=== PATIENT | male | born 1965 | race Caucasian/White ===

== ENCOUNTER 2020-04-10 13:05 | Outpatient (REF) | payer MEDICARE, SELFPAY | END 2020-04-10 13:06 | disposition home or self-care (01) | LOC: HO.LAB 13:05 | PROVIDERS: Visit Provider Internal Medicine | DX: Z20.828 Contact with and (suspected) exposure to other viral communicable diseases (principal) | CPT/HCPCS: C9803; U0003 ==

== ENCOUNTER 2020-04-20 15:35 | Outpatient (REF) | payer MEDICARE, SELFPAY | END 2020-04-20 15:36 | disposition home or self-care (01) | LOC: HO.LAB 15:35 | PROVIDERS: Visit Provider Internal Medicine | DX: Z20.828 Contact with and (suspected) exposure to other viral communicable diseases (principal) | CPT/HCPCS: C9803; U0003 ==

== ENCOUNTER 2020-06-23 12:47 | Inpatient (IN) | payer MEDICARE, MEDICAID, SELFPAY ==
--- NOTE | ~2020-06-23 | XR_ITS ---
EXAMINATION: XR CHEST CLINICAL INFORMATION: Asthma COMPARISON: None TECHNIQUE: Frontal view of the chest was obtained. FINDINGS: Lungs are well-expanded in this patient with history of asthma. There is questionable thickening of the bronchial christianson. No acute pulmonary abnormality. No evidence of pulmonary edema, consolidation or pleural effusion. No pneumothorax or pneumomediastinum. Cardiomediastinal silhouette has normal size and contour. The visualized bones are intact. XR/XR chest 1V IMPRESSION: * Mild thickening of bronchial christianson is suspected in this patient with history of asthma. * No evidence of pneumonia.
[2020-06-23 12:50] VITALS: BP 169/89; PULSE 89; RESP 20; TEMP 36.9; O2SAT 95; BMI 40.1
[2020-06-23 16:12] LABS: MANUAL DIFF FLAG NO
[2020-06-23 16:14] LABS: Basophils Percent Auto 0.3 % (0-2); Eosinophils Absolute Auto 0.1 X10*3/uL (0.0-0.4); Eosinophils Percent Auto 2.5 % (0-4); Hematocrit 50.6 % (42-52); Hemoglobin 17.1 g/dl (14.0-18.0); Lymphocytes Absolute Auto 1.3 X10*3/uL (1.2-4.9); Lymphocytes Percent Auto 33.5 % (20-40); Mean Corpuscular HGB Conc 33.8 g/dl (31.0-36.0); Mean Corpuscular Hemoglobin 30.1 pg (27.0-33.0); Mean Corpuscular Volume 88.9 fL (80-98); Mean Platelet Volume 9.6 fL (9.4-12.4); Monocytes Absolute Auto 0.6 X10*3/uL (0.1-1.2); Monocytes Percent Auto 16.2 % (2-11); Neutrophils Absolute Auto 1.9 X10*3/uL (2.0-8.3); Neutrophils Percent Auto 47.5 % (45-73); Platelet Count 255 X10*3/uL (160-400); Red Blood Count 5.69 X10*6/uL (4.60-5.80); Red Cell Distribution Width 16.5 % (11.0-16.0); White Blood Count 3.9 X10*3/uL (4.8-10.8)
[2020-06-23 16:36] LABS: Anion Gap 17 (12-20); Blood Urea Nitrogen 13 mg/dL (9-16); Calcium 9.3 mg/dL (8.4-10.2); Carbon Dioxide 24 mmol/L (22-29); Chloride 103 mmol/L (96-108); Estimated Glomerular Filt Rate > 60; Glucose Random 100 mg/dL (60-115); Potassium 4.7 mmol/L (3.3-5.1); Sodium 139 mmol/L (135-145)
[2020-06-23] MEDS: Albuterol Sulfate 90 MCG 8 GM INHALER 4 PUFF INHALE (18:26)
[2020-06-23 18:28] VITALS: PULSE 88; O2SAT 95
[2020-06-23 19:24] LABS: B Type Natriuretic Peptide < 10 pg/mL (<100)
[2020-06-23] MEDS: methylPREDNISolone Sod Succ/PF 125 MG/2 ML VIAL IVPUSH (19:25)
[2020-06-23] MEDS: Magnesium Sulfate/H2O 2 GM/50 ML PIGGYBACK IV (19:25)
--- NOTE | 2020-06-23 19:35 | PC.NURSE ---
pt resting in stretcher in nad. IV placed to right hand. pt medicated as per emar. pt +coughing w/o congestion pt denies any complaints at this time and speaking with on phone with full complete sentences. will continue to monitor pt.
[2020-06-23 19:40] VITALS: BP 124/84; PULSE 75; RESP 16; O2SAT 97
--- NOTE | 2020-06-23 20:24 | ED_ITS ---
HPI - Asthma General Chief Complaint: Asthma Stated Complaint: ASTHMA Time Seen by Provider: 06/23/20 18:05 Source: patient Mode of arrival: ambulatory History of Present Illness HPI Narrative: 54-year-old male with a past medical history of bronchial asthma, degenerative disc disease, hypertension, lung fibrosis, COVID-19 in April, presenting to the ED complaining of worsening SOB/asthma exacerbation and dry cough x2 days. Admits to using asthma medications at home with little relief. Denies chest pain, abdominal pain, LE edema, recent travel, history of blood clots, sick contacts MD complaint: asthma attack , shortness of breath and wheezing Related Data Allergies Allergy/AdvReac Type Severity Reaction Status Date / Time No Known Allergies Allergy Verified 06/23/20 15:39 Review of Systems Review of Systems: Constitutional: No Weight loss, No Fever, No Chills Cardiovascular: No Chest Pain, +SOB, No Dyspnea on Exertion, No Edema Respiratory: + Cough, No Sputum, + Wheezing Gastrointestinal: No Nausea, No Vomiting, No Diarrhea, No Constipation, No Abdominal pain Musculoskeletal: No joint pain, + Myalgias, No Joint Swelling Skin: No Skin Lesions, No rash Yes all other systems are reviewed and are negative [facility] Past Medical History Attestation statement: The following information was validated with the patient. Medical History (Updated 06/23/20 @ 20:48 by ANTONIA De León) Bronchial asthma Degenerative disc disease HTN (hypertension) Lung fibrosis Social History Social History Alcohol intake: current Alcohol intake frequency: holidays/special occasions only Smoking Status: Never smoker Use of substances other than those prescribed or required for medical reasons: No Substance Use Type: Marijuana Substance Use Frequency: Occasionally Advance Directives: No Advance Directives Information Provided: No Physical Exam Vital Signs: Vital Signs: Last Vital Signs Temp 98.4 F 06/23/20 12:50 Pulse 75 06/23/20 19:40 Resp 16 06/23/20 19:40 BP 124/84 06/23/20 19:40 Pulse Ox 97 06/23/20 19:40 Body Mass Index 40.1 Const: General: cooperative, healthy appearing and comfortable Orientation/consciousness: patient oriented x3 Limitations: no limitations HENMT: Head: Yes normal to inspection Ears: hearing grossly normal bilaterally General nose exam: Normal external nose present Face and sinus: Yes normal facial exam Eyes: General: appearance normal, both eyes and all related structures EOM: EOMs intact bilaterally Neck: Neck: Yes normal visual inspection Resp: Other: Coarse lung sounds throughout Effort & Inspection: normal respiratory effort Auscultation: wheezes expiratory wheezes and throughout Cardio: Rate: regular rate Heart sounds: S1 normal heart sound present and S2 normal heart sound present GI: Inspection: Yes normal to inspection Palpation (GI): Soft to palpation, nontender, no guarding and not rigid Skin: Rashes: no rashes Wounds: no wounds Neuro: General: patient oriented x3 and tone normal Extrem: General: Yes normal to inspection and Yes no pedal edema Course Course Course Narrative: -leukopenia at 3.9, labs otherwise unremarkable XR chest 1V IMPRESSION: * Mild thickening of bronchial christianson is suspected in this patient with history of asthma. * No evidence of pneumonia. >2019--on re-evaluation patient is still with coarse lung sounds throughout. -COVID-19/influenza/RSV negative >> DuoNeb ordered -2099--ED care transferred to X[facility] Nolen pending Duonebs and re-evalution MDM - Asthma MDM Narrative Medical decision making narrative: 54-year-old male with a past medical history of bronchial asthma, degenerative disc disease, hypertension, lung fibrosis, COVID-19 in April, presenting to the ED complaining of worsening SOB/asthma exacerbation and dry cough x2 days. On exam VSS, NAD, well appearing, lungs with diffuse expiratory wheeze/coarse lung sounds throughout. No LE edema. Concern for asthma exacerbation. Rule out pneumonia. Lower concern for COVID-19 as patient recently had, however will obtain COVID-19 testing. Low concern for PE/CHF Plan: EKG, labs, CXR, COVID-19 testing, magnesium, Solu-Medrol, albuterol, re- evaluate Differential Diagnosis Differential diagnosis: Likely Acute exacerbation Medical Records Attestation: I reviewed the patient's medical records. Lab Data Attestation: I reviewed the patient's lab results. Result diagrams: 06/23/20 15:50 06/23/20 15:50 Labs: Lab Results 06/23/20 06/23/20 06/23/20 Range/Units 15:50 15:50 15:50 WBC 3.9 L (4.8-10.8) X10*3/uL RBC 5.69 (4.60-5.80) X10*6/uL Hgb 17.1 (14.0-18.0) g/dl Hct 50.6 (42-52) % MCV 88.9 (80-98) fL MCH 30.1 (27.0-33.0) pg MCHC 33.8 (31.0-36.0) g/dl RDW 16.5 H (11.0-16.0) % Plt Count 255 (160-400) X10*3/uL MPV 9.6 (9.4-12.4) fL Immature Gran % (Auto) 0.0 (0.0-0.4) % Neut % (Auto) 47.5 (45-73) % Lymph % (Auto) 33.5 (20-40) % Carbon % (Auto) 16.2 H (2-11) % Eos % (Auto) 2.5 (0-4) % Baso % (Auto) 0.3 (0-2) % Lymph # (Auto) 1.3 (1.2-4.9) X10*3/uL Carbon # (Auto) 0.6 (0.1-1.2) X10*3/uL Eos # (Auto) 0.1 (0.0-0.4) X10*3/uL Baso # (Auto) 0.0 (0.0-0.2) X10*3/uL Abs Immat Gran (auto) 0.00 (0.00-0.03) X10*3/uL Absolute Neuts (auto) 1.9 L (2.0-8.3) X10*3/uL Absolute Nucleated RBC 0.000 (0.0-0.012) X10*3/uL Nucleated RBC % (auto) 0.0 (0.0-0.2) /100WBC Sodium 139 (135-145) mmol/L Potassium 4.7 (3.3-5.1) mmol/L Chloride 103 (96-108) mmol/L Carbon Dioxide 24 (22-29) mmol/L Anion Gap 17 (12-20) BUN 13 (9-16) mg/dL Creatinine 0.90 (0.5-1.4) mg/dL Estim Creat Clear Calc 124.0 Estimated GFR > 60 Random Glucose 100 (60-115) mg/dL Calcium 9.3 (8.4-10.2) mg/dL B-Natriuretic Peptide < 10 (<100) pg/mL Coronavirus (PCR) (Negative) Influenza Type A (PCR) (Negative) Influenza Type B (PCR) (Negative) RSV RNA Qual (PCR) (Negative) 06/23/20 Range/Units 19:48 WBC (4.8-10.8) X10*3/uL RBC (4.60-5.80) X10*6/uL Hgb (14.0-18.0) g/dl Hct (42-52) % MCV (80-98) fL MCH (27.0-33.0) pg MCHC (31.0-36.0) g/dl RDW (11.0-16.0) % Plt Count (160-400) X10*3/uL MPV (9.4-12.4) fL Immature Gran % (Auto) (0.0-0.4) % Neut % (Auto) (45-73) % Lymph % (Auto) (20-40) % Carbon % (Auto) (2-11) % Eos % (Auto) (0-4) % Baso % (Auto) (0-2) % Lymph # (Auto) (1.2-4.9) X10*3/uL Carbon # (Auto) (0.1-1.2) X10*3/uL Eos # (Auto) (0.0-0.4) X10*3/uL Baso # (Auto) (0.0-0.2) X10*3/uL Abs Immat Gran (auto) (0.00-0.03) X10*3/uL Absolute Neuts (auto) (2.0-8.3) X10*3/uL Absolute Nucleated RBC (0.0-0.012) X10*3/uL Nucleated RBC % (auto) (0.0-0.2) /100WBC Sodium (135-145) mmol/L Potassium (3.3-5.1) mmol/L Chloride (96-108) mmol/L Carbon Dioxide (22-29) mmol/L Anion Gap (12-20) BUN (9-16) mg/dL Creatinine (0.5-1.4) mg/dL Estim Creat Clear Calc Estimated GFR Random Glucose (60-115) mg/dL Calcium (8.4-10.2) mg/dL B-Natriuretic Peptide (<100) pg/mL Coronavirus (PCR) NEGATIVE (Negative) Influenza Type A (PCR) NEGATIVE (Negative) Influenza Type B (PCR) NEGATIVE (Negative) RSV RNA Qual (PCR) NEGATIVE (Negative) Discharge Plan Discharge Clinical Impression: Asthma with acute exacerbation
--- NOTE | 2020-06-23 20:30 | PC.NURSE ---
PT DENIES ANY COMPLAINTS AND STATES IM DOING OK . PT SPEAKING IN FULL SENTENCES IN [place] WITH [employer]. PT AWAITING FOR FURTHER ORDERS.
[2020-06-23 20:35] LABS: Influenza A PCR NEGATIVE (Negative); Influenza B PCR NEGATIVE (Negative); Resp Syncy Virus RNA Qual PCR NEGATIVE (Negative); SARS COV2 PCR INHOUSE NEGATIVE (Negative)
--- NOTE | 2020-06-23 20:38 | ECG_ITS ---
Test Reason : SOB Blood Pressure : / mmHG Vent. Rate : 074 BPM Atrial Rate : 074 BPM P-R Int : 146 ms QRS Dur : 082 ms QT Int : 380 ms P-R-T Axes : 072 061 035 degrees QTc Int : 421 ms Normal sinus rhythm Biatrial enlargement Abnormal ECG No previous ECGs available Referred By: Jenny Patel Electronically Signed By:Lucian Art
[2020-06-23] MEDS: Albuterol/Iprat 2.5/0.5MG 3 ML AMPUL.NEB INHALE (21:08)
[2020-06-23 21:10] VITALS: PULSE 68; O2SAT 98
[2020-06-23 22:00] VITALS: BP 120/82; PULSE 88; RESP 18
--- NOTE | 2020-06-23 23:49 | PC.NURSE ---
PT MEDICATED PER EMAR. PT REQUESTING FOOD AND DRINK.
--- NOTE | 2020-06-23 23:54 | PC.NURSE ---
PA IN ROOM FOR RE-EVAL WITH PT WITH [employer].
[2020-06-24] VITALS (7 sets, daily range): BP systolic 118–155; BP diastolic 80–99; PULSE 79–90; RESP 16–20; TEMP 36.7; O2SAT 89–97
--- NOTE | 2020-06-24 | PC.NURSE ---
PT IS UP AND WALKING WITH PA. PO 89% AMBULATORY AND HR 87.
--- NOTE | 2020-06-24 00:14 | P.HPHOSP_ITS ---
History of Present Illness Date of Service: 06/24/20 Chief Complaint: Shortness of breath 54-year-old male with a past medical history of hypertension, asthma/bronchitis, pulmonary fibrosis, obesity, history of COVID-19 positive presented to the hospital today with a chief complaint of shortness of breath. Patient mentioned that over the past few days he has been having shortness of breath which has been gradually worsening, tried to use his home nebulizers without any relief. Presented to the ER for further evaluation. Denies any chest pain palpitations lightheadedness or dizziness. Denies any fever chills cough. Denies any GI or symptoms. Review of all other systems is negative except mentioned above ER course: Per ER team patient was noted to be short of breath, mildly tachypneic on presentation noted to have a are coarse breath sounds with diminished breath sounds in the bases; given nebulizations, Solu-Medrol, magnesium with slight improvement. Patient on ambulation desaturated to 88%. Subsequently decided to admit to the hospital for further management. [facility] Medical History (Updated 06/24/20 @ 00:12 by Tamanna Garcia NP) Bronchial asthma Degenerative disc disease HTN (hypertension) Lung fibrosis Social History Alcohol intake: current Alcohol intake frequency: holidays/special occasions only Smoking Status: Never smoker Use of substances other than those prescribed or required for medical reasons: No Substance Use Type: Marijuana Substance Use Frequency: Occasionally Advance Directives: No Advance Directives Information Provided: No Meds Allergies Allergy/AdvReac Type Severity Reaction Status Date / Time No Known Allergies Allergy Verified 06/23/20 15:39 Active Medications: Current Medications Generic Name Dose Route Start Last Admin Trade Name Freq PRN Reason Stop Dose Admin Acetaminophen 650 mg 06/24/20 00:11 Acetaminophen 325 Mg Tablet PO Q6H PRN Pain, Mild (Pain Scale 1-3) Albuterol/Ipratropium 3 ml 06/24/20 08:00 Albuterol/Iprat 2.5/0.5mg 3 Ml Ampul.Neb INHALE RQ6H WHILE AWAKE PENDING SALE TO [facility] Albuterol/Ipratropium 3 ml 06/24/20 00:13 Albuterol/Iprat 2.5/0.5mg 3 Ml Ampul.Neb INHALE RQ4H WHILE AWAKE PRN Shortness of Breath/Wheezing Enoxaparin Sodium 40 mg 06/24/20 00:15 Enoxaparin Sodium 40 Mg/0.4 Ml Syringe SUBCUT Q24H PENDING SALE TO [facility] Methylprednisolone Sodium Succinate 60 mg 06/24/20 00:15 Methylprednisolone Sod Succ/Pf 125 Mg/2 Ml Vial IVPUSH Q8H PENDING SALE TO [facility] Pharmacy Consult 1 each 06/24/20 00:13 Consult Rx Perform Med Rec MISCELLANE ONCE PRN Consult order Sodium Chloride 3 ml 06/24/20 08:00 0.9 % Sodium Chloride Flush 3 Ml Syringe IVFLUSH QSHIFT PENDING SALE TO [facility] Zolpidem Tartrate 5 mg 06/24/20 00:11 Zolpidem Tartrate 5 Mg Tablet PO BEDTIME PRN Insomnia Home Medications Medication Instructions Recorded Confirmed Last Taken Type albuterol sulfate 2 puff PO Q6H PRN 06/23/20 06/23/20 Unknown History amlodipine 1 tab PO DAILY 06/23/20 06/23/20 Unknown History enalapril maleate 1 tab PO DAILY 06/23/20 06/23/20 Unknown History fluticasone furoate-vilanterol 25 inh INHALATION BID 06/23/20 06/23/20 Unknown History [Breo Ellipta] umeclidinium [Incruse Ellipta] 62.5 mcg INHALATION DAILY 06/23/20 06/23/20 Unknown History Physical Exam Vital Signs and Narrative: Vital Signs: Last Vital Signs Temp 98.4 F 06/23/20 12:50 Pulse 87 06/24/20 00:01 Resp 18 06/23/20 22:00 BP 120/82 06/23/20 22:00 Pulse Ox 89 L 06/24/20 00:01 Body Mass Index 40.1 Gen: Appears be in no acute distress; on supplemental oxygen. Speaks in full sentences. HEENT: NCAT, Moist mucosa. Pulmonary: Coarse breath sounds CVS: Normal S1-S2 Abdomen: BS+, Soft, Nontender Extremities: Warm well perfused Neuro: Alert and awake. Results Labs CBC and Chem 7: 06/23/20 15:50 06/23/20 15:50 Labs: Laboratory Results - last 24 hr 06/23/20 06/23/20 06/23/20 15:50 15:50 15:50 MCV 88.9 MCH 30.1 MCHC 33.8 RDW 16.5 H Plt Count 255 MPV 9.6 Immature Gran % (Auto) 0.0 Neut % (Auto) 47.5 Lymph % (Auto) 33.5 [place] % (Auto) 16.2 H Eos % (Auto) 2.5 Baso % (Auto) 0.3 Lymph # (Auto) 1.3 [place] # (Auto) 0.6 Eos # (Auto) 0.1 Baso # (Auto) 0.0 Abs Immat Gran (auto) 0.00 Absolute Neuts (auto) 1.9 L Absolute Nucleated RBC 0.000 Nucleated RBC % (auto) 0.0 Anion Gap 17 Estim Creat Clear Calc 124.0 Estimated GFR > 60 Random Glucose 100 Calcium 9.3 B-Natriuretic Peptide < 10 Coronavirus (PCR) Influenza Type A (PCR) Influenza Type B (PCR) RSV RNA Qual (PCR) 06/23/20 19:48 MCV MCH MCHC RDW Plt Count MPV Immature Gran % (Auto) Neut % (Auto) Lymph % (Auto) [place] % (Auto) Eos % (Auto) Baso % (Auto) Lymph # (Auto) [place] # (Auto) Eos # (Auto) Baso # (Auto) Abs Immat Gran (auto) Absolute Neuts (auto) Absolute Nucleated RBC Nucleated RBC % (auto) Anion Gap Estim Creat Clear Calc Estimated GFR Random Glucose Calcium B-Natriuretic Peptide Coronavirus (PCR) NEGATIVE Influenza Type A (PCR) NEGATIVE Influenza Type B (PCR) NEGATIVE RSV RNA Qual (PCR) NEGATIVE Imaging Radiologist's Impressions: Impressions Chest X-Ray 06/23/20 15:40 IMPRESSION: * Mild thickening of bronchial christianson is suspected in this patient with history of asthma. * No evidence of pneumonia. Assessment and Plan (1) Asthma with acute exacerbation: Qualifiers: Asthma persistence: persistent Asthma severity: moderate Qualified Code(s): J45.41 - Moderate persistent asthma with (acute) exacerbation Status: Acute 54-year-old male with a past medical history of hypertension, asthma/COPD, history of bronchitis, pulmonary fibrosis, obesity presented to the hospital with a chief complaint of shortness of breath. Noted to be in asthma exacerbation. Admitted to the hospital for further management. Acute hypoxic respiratory failure: Likely in the setting of asthma/COPD exacerbation. On supplemental oxygen. Not in distress. Improving. Asthma/COPD exacerbation: Continue nebulizations standing and p.r.n. Continue Solu-Medrol IV t.i.d. Azithromycin Patient would benefit outpatient pulmonary function test. D-dimer pending If not improving the above treatment plan, will defer to the a.m. team to consider pulmonology consult Trending pulse oximetry Obesity: Patient indicated on lifestyle modifications. Recommended outpatient sleep studies. Hypertension: Continue home medications. DVT prophylaxis: Lovenox GI prophylaxis: Pepcid Code status: Full code
[2020-06-24 00:37] LABS: D Dimer < 200 NG/ML
[2020-06-24 00:51] LABS: Troponin-I High Sensitivity < 3.5 ng/L (<3.5-35.0)
--- NOTE | 2020-06-24 01:10 | PC.NURSE ---
pt awaiting for lab results.
[2020-06-24] MEDS: Azithromycin 500 MG TABLET PO ×2 (02:11→21:07)
--- NOTE | 2020-06-24 03:16 | PC.NURSE ---
PT AWAKE AND SITTING UP IN CHAIR. PT DENIES ANY COMPLAINTS. VS OBTAINED. PT UNABLE TO SLEEP. RESPIRATIONS EASY, N/L. SKIN W/D.
[2020-06-24] MEDS: methylPREDNISolone Sod Succ/PF 125 MG/2 ML VIAL 60 MG IVPUSH ×3 (06:14→21:07)
[2020-06-24 07:04] LABS: MANUAL DIFF FLAG NO
[2020-06-24 07:10] LABS: Hematocrit 49.4 % (42-52); Hemoglobin 16.8 g/dl (14.0-18.0); Imm Gran Abs Auto 0.01 X10*3/uL (0.00-0.03); Imm Gran Pct Auto 0.2 % (0.0-0.4); Lymphocytes Absolute Auto 0.9 X10*3/uL (1.2-4.9); Lymphocytes Percent Auto 17.1 % (20-40); Mean Corpuscular Hemoglobin 30.1 pg (27.0-33.0); Mean Corpuscular Volume 88.4 fL (80-98); Mean Platelet Volume 10.7 fL (9.4-12.4); Monocytes Absolute Auto 0.1 X10*3/uL (0.1-1.2); Monocytes Percent Auto 1.6 % (2-11); Neutrophils Percent Auto 81.1 % (45-73); Platelet Count 218 X10*3/uL (160-400); Red Blood Count 5.59 X10*6/uL (4.60-5.80)
[2020-06-24 07:30] LABS: Anion Gap 14 (12-20); Blood Urea Nitrogen 12 mg/dL (9-16); Carbon Dioxide 23 mmol/L (22-29); Chloride 104 mmol/L (96-108); Creatinine Clr Calc Pharmacy 134.5; Estimated Glomerular Filt Rate > 60; Glucose Random 133 mg/dL (60-115); Potassium 4.9 mmol/L (3.3-5.1); Sodium 136 mmol/L (135-145)
[2020-06-24] MEDS: 0.9 % Sodium Chloride Flush 3 ML SYRINGE IVFLUSH ×2 (08:04→16:01)
[2020-06-24] MEDS: Albuterol/Iprat 2.5/0.5MG 3 ML AMPUL.NEB INHALE ×3 (08:29→20:10)
--- NOTE | 2020-06-24 08:42 | PC.NURSE ---
Pt is alert, rr even, speaks in full sentences, skin is pwdi, and he is in nad. He is currently awaiting bed assignment.
[2020-06-24] MEDS: Enoxaparin Sodium 40 MG/0.4 ML SYRINGE SUBCUT (09:00)
[2020-06-24] MEDS: Famotidine 20 MG TABLET PO (09:00)
--- NOTE | 2020-06-24 12:34 | HO.PM.IMPN ---
Subjective Subjective Date of Service: 06/24/20 Interval History: seen and examined this AM in the ED reports not feeling much better still SOB ROS General - no fevers or chills Cardiovascular - no chest pain Respiratory - +SOB Abdominal- no abdominal pain, nausea, vomiting, diarrhea Physical Exam Vital Signs: Vital Signs: Last Vital Signs Temp 98.4 F 06/23/20 12:50 Pulse 90 06/24/20 11:36 Resp 16 06/24/20 11:36 BP 125/86 06/24/20 11:36 Pulse Ox 94 06/24/20 11:36 Body Mass Index 40.1 Const: Other: General - no acute distress, appears comfortable Cardiovascular - regular rate and rhythm, S1-S2 Lungs - tight, scattered wheezing Abdomen - soft, nontender, no rebound or guarding Extremities - no edema bilaterally Neuro - awake and alert, no focal deficits Objective Data Current Medications Generic Name Dose Route Start Last Admin Trade Name Freq PRN Reason Stop Dose Admin Acetaminophen 650 mg 06/24/20 00:11 Acetaminophen 325 Mg Tablet PO Q6H PRN Pain, Mild (Pain Scale 1-3) Albuterol/Ipratropium 3 ml 06/24/20 08:00 06/24/20 08:29 Albuterol/Iprat 2.5/0.5mg 3 Ml Ampul.Neb INHALE 3 ml RQ6H WHILE AWAKE KELLI Administration Albuterol/Ipratropium 3 ml 06/24/20 00:13 Albuterol/Iprat 2.5/0.5mg 3 Ml Ampul.Neb INHALE RQ4H WHILE AWAKE PRN Shortness of Breath/Wheezing Azithromycin 500 mg 06/24/20 01:00 06/24/20 02:11 Azithromycin 500 Mg Tablet PO 500 mg BEDTIME KELLI Administration Enoxaparin Sodium 40 mg 06/24/20 09:00 06/24/20 09:00 Enoxaparin Sodium 40 Mg/0.4 Ml Syringe SUBCUT 40 mg Q24H KELLI Administration Famotidine 20 mg 06/24/20 09:00 06/24/20 09:00 Famotidine 20 Mg Tablet PO 20 mg DAILY KELLI Administration Methylprednisolone Sodium Succinate 60 mg 06/24/20 06:00 06/24/20 06:14 Methylprednisolone Sod Succ/Pf 125 Mg/2 Ml Vial IVPUSH 60 mg Q8H KELLI Administration Pharmacy Consult 1 each 06/24/20 00:13 Consult Rx Perform Med Rec MISCELLANE ONCE PRN Consult order Sodium Chloride 3 ml 06/24/20 08:00 06/24/20 08:04 0.9 % Sodium Chloride Flush 3 Ml Syringe IVFLUSH 3 ml QSHIFT KELLI Administration Zolpidem Tartrate 5 mg 06/24/20 00:11 Zolpidem Tartrate 5 Mg Tablet PO BEDTIME PRN Insomnia Labs CBC & Chem 7: 06/24/20 06:47 06/24/20 06:47 Assessment and Plan (1) Asthma with acute exacerbation: Status: Acute Assessment and Plan: This is a 54 yo M with a prior COVID 19 infection (Apr 2020) who presents with progressive SOB, which was not responsive to Rx at home. 1. Acute Resp. Failure with Hypoxia (documented saturation of 89% on RA in the ED) resolved, now tolearting RA 2. COPD/Asthma exacerbation updrafts and steriods zithromax for 5d 3. HTN continue home meds 4. Obesity weight loss Full Code DVT pptx, Lovenox
[2020-06-24] MEDS: Acetaminophen 325 MG TABLET 650 MG PO (19:28)
[2020-06-25] MEDS: 0.9 % Sodium Chloride Flush 3 ML SYRINGE IVFLUSH ×2 (00:10→09:10)
[2020-06-25 04:43] VITALS: BP 131/80; PULSE 76; RESP 18; O2SAT 97
[2020-06-25 06:34] VITALS: BP 119/80; PULSE 72; RESP 18; O2SAT 95
--- NOTE | 2020-06-25 06:59 | PC.NURSE ---
RN to RN report given to LARISSA Harrell. Plan to admit to room 273. Pt sleeping at this time.
[2020-06-25] MEDS: Albuterol/Iprat 2.5/0.5MG 3 ML AMPUL.NEB INHALE (08:11)
[2020-06-25 08:12] VITALS: PULSE 92; O2SAT 92
[2020-06-25 08:13] VITALS: BP 157/95; PULSE 86; RESP 18; TEMP 36.9; O2SAT 95
[2020-06-25] MEDS: methylPREDNISolone Sod Succ/PF 125 MG/2 ML VIAL 60 MG IVPUSH (09:09)
[2020-06-25] MEDS: Enoxaparin Sodium 40 MG/0.4 ML SYRINGE SUBCUT (09:09)
--- NOTE | 2020-06-25 09:41 | MHC.CM.PN ---
IMM 06/25/20 MALE 54 DX ASTHMA EXACERBATION. PT LIVES WITH FAMILY, IN [place]. HE IS INDEPENDENT, ALL FUNCTIONAL MOBILITY. DP HOME NO SERVICES FAMILY TRANSPORT.
--- NOTE | 2020-06-25 09:53 | PM.DS ---
DS: Providers Provider Date of Service: 06/25/20 Date of admission: 06/24/20 00:11 Primary care physician: Nonstaff Physician DS: Diagnosis Discharge Diagnosis (1) Asthma with acute exacerbation: Status: Acute (2) Acute respiratory failure with hypoxia: Status: Acute DS: Medications Discharge Medications Home Medications: Home Medications Medication Instructions Recorded Confirmed Breo Ellipta 25 inh INHALATION BID 06/23/20 06/23/20 Incruse Ellipta 62.5 mcg INHALATION DAILY 06/23/20 06/23/20 albuterol sulfate 2 puff PO Q6H PRN 06/23/20 06/23/20 amlodipine 1 tab PO DAILY 06/23/20 06/23/20 enalapril maleate 1 tab PO DAILY 06/23/20 06/23/20 Previous Rx's Medication Instructions Recorded dextromethorphan-guaifenesin 10 ml PO Q6H PRN #118 ml 06/25/20 [Robitussin Cough-Chest Reagan DM] prednisone 50 mg PO DAILY #5 tab 06/25/20 DS: Summary Hospital Course Hospital Course: Patient presented with asthma exacerbation. He was noted to be slightly hypoxic on room air down to 89 which quickly resolved. He was treated with systemic steroids and bronchodilators and over the course of 2 days in the hospital, his symptoms had significant improvement. He will be discharged home to finish 5 more days of prednisone and to continue is usual asthma/COPD meds. COVID 19 testing was negative during this hospitalization. Time Spent with Patient Time attestation: Total time spent providing and/or coordinating discharge services: Discharge coordination time: Greater than 30 minutes Physical Exam Vital Signs: Vital Signs: Last Vital Signs Temp 98.4 F 06/25/20 08:13 Pulse 86 06/25/20 08:13 Resp 18 06/25/20 08:13 BP 157/95 H 06/25/20 08:13 Pulse Ox 95 06/25/20 08:13 Body Mass Index 40.1 Const: Other: General - no acute distress, appears comfortable Cardiovascular - regular rate and rhythm, S1-S2 Lungs - improving air entry, min exp wheezing, sats 95 on RA Abdomen - soft, nontender, no rebound or guarding Extremities - no edema bilaterally Neuro - awake and alert, no focal deficits Discharge Plan Discharge Patient Disposition: Home, Self-Care Referrals: Physician,Nonstaff [Primary Care Provider] - Discharge Medications: New Robitussin Cough-Chest Reagan DM 5-100 mg/5 mL liquid 10 ml PO Q6H PRN (Reason: cough) Qty: 118 RF: 0 prednisone 50 mg tablet 50 mg PO DAILY Qty: 5 RF: 0 Continued enalapril maleate 20 mg tablet 1 tab PO DAILY RF: 0 amlodipine 10 mg tablet 1 tab PO DAILY RF: 0 albuterol sulfate 90 mcg/actuation HFA aerosol inhaler 2 puff PO Q6H PRN (Reason: Wheezing) RF: 0 Breo Ellipta 100-25 mcg/dose blister with device 25 inh inhalation BID RF: 0 Incruse Ellipta 62.5 mcg/actuation blister with device 62.5 mcg inhalation DAILY RF: 0 Discharge Orders: Discharge Order (Routine); Ordered 06/25/20 Ordered By: Sagar Felix Diet: advance to usual diet Activity on Discharge: As tolerated Stand Alone Forms: Patient Portal Discharge page Care Plan Goals: To stay healthy and out of the hospital. Health Concerns: Asthma/COPD Plan of Treatment: Take Prednisone for 5 more days. Use your inhalers like you normally do.
--- NOTE | 2020-06-25 10:36 | MHC.CM.PN ---
MALE 54 DX ASTHMA EXACERBATION IS DC TO HOME TODAY. FAMILY PROVIDING TRANSPORTATION.
== END 2020-06-25 12:45 | disposition home or self-care (01) | DRG 202 ==
LOC: HO.ED 06-24 00:12 → HO.EDOVER 06-24 06:37 → HO.ISO 06-25 06:57
PROVIDERS: Nurse Practitioner Family; Physician Assistant; Admitting Provider Hospitalist; Emergency Provider Internal Medicine; Visit Provider Family Medicine
DX: J45.41 Moderate persistent asthma with (acute) exacerbation (principal); J96.01 Acute respiratory failure with hypoxia; Z68.41 Body mass index [BMI] 40.0-44.9, adult; E66.9 Obesity, unspecified; Z20.822 Contact with and (suspected) exposure to COVID-19; Z86.16 Personal history of COVID-19; Z79.52 Long term (current) use of systemic steroids; Z79.899 Other long term (current) drug therapy
CPT/HCPCS: 0241U; 36415; 71045; 80048; 83880; 84484; 85025; 85379; 93005; 94640; 96365; 96366; 96375; 99284; 99285; J1650; J2930; J3475

== ENCOUNTER 2020-10-28 19:43 | Emergency (ER) | payer MEDICARE, MEDICAID, SELFPAY ==
--- NOTE | ~2020-10-28 | XR_ITS ---
EXAMINATION: XR CHEST CLINICAL INFORMATION: Productive cough COMPARISON: None TECHNIQUE: 2 views of the chest were obtained. FINDINGS: When compared to previous no convincing evidence for an acute process. Ill-defined central hilar structures and some markings throughout the lungs which also present previously and may well be chronic. XR/XR chest 2V IMPRESSION: Findings suggest central airways disease and chronic markings. No convincing evidence for an acute infiltrate when compared to previous of 06/23/2020
[2020-10-28 19:47] VITALS: BP 148/79; PULSE 88; RESP 20; TEMP 36.5; O2SAT 96; BMI 41.5
[2020-10-28 20:26] VITALS: BP 146/79; PULSE 86; RESP 14
[2020-10-28 20:29] VITALS: O2SAT 99
--- NOTE | 2020-10-28 20:47 | ED_ITS ---
HPI - URI/Sore Throat General Chief Complaint: Upper Respiratory Symptoms Stated Complaint: COUGH, ASTHMA Time Seen by Provider: 10/28/20 20:47 Source: patient Mode of arrival: ambulatory Limitations: no limitations History of Present Illness HPI Narrative: patient history of pulmonary fibrosis chronic lung disease Asthma been sick for last few days with running nose coughing already been vaccinated with COVID-19. Has steroid inhaler at home. No fever no chills no chest pain no leg swelling patient does get similar attacks in the past saturating 96% at room air Related Data Home Medications Medication Instructions Recorded Confirmed Breo Ellipta 25 inh INHALATION BID 06/23/20 06/23/20 Incruse Ellipta 62.5 mcg INHALATION DAILY 06/23/20 06/23/20 albuterol sulfate 2 puff PO Q6H PRN 06/23/20 06/23/20 amlodipine 1 tab PO DAILY 06/23/20 06/23/20 enalapril maleate 1 tab PO DAILY 06/23/20 06/23/20 Previous Rx's Medication Instructions Recorded dextromethorphan-guaifenesin 10 ml PO Q6H PRN #118 ml 06/25/20 [Robitussin Cough-Chest Reagan DM] prednisone 50 mg PO DAILY #5 tab 06/25/20 azithromycin [Zithromax] 250 mg PO DAILY #4 tab 10/28/20 codeine-guaifenesin 10 ml PO Q4-6H PRN #240 ml 10/28/20 prednisone 40 mg PO DAILY #10 tab 10/28/20 Allergies Allergy/AdvReac Type Severity Reaction Status Date / Time No Known Allergies Allergy Verified 06/23/20 15:39 Review of Systems Review of Systems: Constitutional : No Weight loss, No Fever, No Chills ENT/Mouth : No sore throat, No Rhinorrhea Eyes: No Eye Pain, No Swelling Cardiovascular : No Chest Pain, no palpitations Respiratory : ++ Cough, No Sputum, ++ shortness of breath Gastrointestinal : no Nausea, No Vomiting, No Diarrhea, No abdominal Pain, no black stools Genitourinary : No Dysuria, No Urinary Frequency Musculoskeletal : No joint pain, No Myalgias, No Joint Swelling Skin : No Skin Lesions, No rash Neuro : No Weakness, No Numbness, No Dizziness, No Headache Psych : No Anxiety/Panic, No Depression Heme/Lymph: No Bruising, No Lymphadenopathy Endocrine : No Polyuria, No Polydipsia All other systems reviewed and are negative [facility] Past Medical History Medical History Bronchial asthma Degenerative disc disease HTN (hypertension) Lung fibrosis Social History Social History Alcohol intake: current Alcohol intake frequency: holidays/special occasions only Patient Tobacco Use Status: Never used Tobacco Use of substances other than those prescribed or required for medical reasons: Yes Substance Use Type: Marijuana Substance Use Frequency: Weekly Advance Directives: No Advance Directives Information Provided: Yes service: No Current occupational status: disabled Physical Exam Vital Signs: Vital Signs: Last Vital Signs Temp 97.7 F 10/28/20 19:47 Pulse 89 10/28/20 22:00 Resp 22 H 10/28/20 22:00 BP 146/79 H 10/28/20 20:26 Pulse Ox 96 10/28/20 22:00 Body Mass Index 41.5 Appearance: Alert. Oriented X3. No acute distress. frequent dry cough Eyes: PERRLA, No Nystagmus ENT: Pharynx normal. Oral Mucosa moist Neck: Normal inspection. Neck supple. CVS: Normal heart rate and rhythm. Pulses normal. Respiratory: No respiratory distress. Equal air entry bilateral, +++wheezing/rhonchi no rales Abdomen: Soft and nontender. Bowel sounds are present, no mass palpable, no CVA tenderness Skin: Skin warm and dry. Normal skin color. Normal skin turgor. Extremities: No lower extremity edema. No calf tenderness Neuro: Oriented X 3. No motor deficit. No sensory deficit. MDM - URI/Sore Throat MDM Narrative Medical decision making narrative: patient with interstitial lung disease, asthma feeling much better after nebulizing treatment , cxr negative , will discharge patient home on Zithromax and prednisone Discharge Plan Discharge Clinical Impression: Bronchitis Patient Disposition: Home, Self-Care Instructions: Acute Bronchitis (ED) Additional Instructions: continue Your inhalers prednisone as advised Antibiotic as prescribed. Follow with PCP if not better Prescriptions: New prednisone 20 mg tablet 40 mg PO DAILY Qty: 10 RF: 0 azithromycin [Zithromax] 250 mg tablet 250 mg PO DAILY Qty: 4 RF: 0 codeine-guaifenesin 10-100 mg/5 mL liquid 10 ml PO Q4-6H PRN (Reason: Cough) Qty: 240 RF: 0 No Action enalapril maleate 20 mg tablet 1 tab PO DAILY RF: 0 amlodipine 10 mg tablet 1 tab PO DAILY RF: 0 albuterol sulfate 90 mcg/actuation HFA aerosol inhaler 2 puff PO Q6H PRN (Reason: Wheezing) RF: 0 Breo Ellipta 100-25 mcg/dose blister with device 25 inh inhalation BID RF: 0 Incruse Ellipta 62.5 mcg/actuation blister with device 62.5 mcg inhalation DAILY RF: 0 Robitussin Cough-Chest Reagan DM 5-100 mg/5 mL liquid 10 ml PO Q6H PRN (Reason: cough) Qty: 118 RF: 0 prednisone 50 mg tablet 50 mg PO DAILY Qty: 5 RF: 0
[2020-10-28] MEDS: Albuterol/Iprat 2.5/0.5MG 3 ML AMPUL.NEB 1.5 ML INHALE (20:57)
[2020-10-28] MEDS: Albuterol Sulfate (0.083%) 2.5 MG/3 ML VIAL.NEB INHALE (21:01)
[2020-10-28 21:02] VITALS: PULSE 89; O2SAT 95
[2020-10-28] MEDS: predniSONE 20 MG TABLET 60 MG PO (21:18)
[2020-10-28] MEDS: Azithromycin 500 MG TABLET PO (21:21)
[2020-10-28] MEDS: guaiFEN/Codeine SF 200/20/10ML 10 ML LIQUID PO (21:21)
[2020-10-28 22:00] VITALS: PULSE 89; RESP 22; O2SAT 96
== END 2020-10-28 22:39 | disposition home or self-care (01) ==
PROVIDERS: Emergency Provider Internal Medicine
DX: J40 Bronchitis, not specified as acute or chronic (principal); J84.9 Interstitial pulmonary disease, unspecified; J45.909 Unspecified asthma, uncomplicated; I10 Essential (primary) hypertension; Z79.899 Other long term (current) drug therapy
CPT/HCPCS: 71046; 94640; 99284; 99285

== ENCOUNTER → 2021-10-08 10:41 | Outpatient (BNVA) | payer MEDICARE, MEDICAID, SELFPAY | PROVIDERS: PCP Internal Medicine; Visit Provider Hospitalist | DX: J45.40 Moderate persistent asthma, uncomplicated (principal); J84.10 Pulmonary fibrosis, unspecified; R05.3 Chronic cough; G47.33 Obstructive sleep apnea (adult) (pediatric) | CPT/HCPCS: 94618; 99202 ==

== ENCOUNTER 2021-11-28 21:48 | Emergency (ER) | payer MEDICARE, MEDICAID, SELFPAY ==
--- NOTE | 2021-11-28 | ECG_ITS ---
Test Reason : SOB Blood Pressure : / mmHG Vent. Rate : 071 BPM Atrial Rate : 071 BPM P-R Int : 146 ms QRS Dur : 084 ms QT Int : 366 ms P-R-T Axes : 072 052 040 degrees QTc Int : 397 ms Normal sinus rhythm Normal ECG When compared with ECG of 23-JUN-2020 21:54, No significant change was found Referred By: Generic ED Physician Electronically Signed By:EMILIE GOODE
--- NOTE | ~2021-11-28 | XR_ITS ---
EXAMINATION: XR CHEST CLINICAL INFORMATION: Cough COMPARISON: Chest x-ray 10/28/2020 TECHNIQUE: Frontal view of the chest was obtained. FINDINGS: Cardiac silhouette is normal in size. The lungs are well aerated. There is no lobar consolidation. No pleural effusion or pneumothorax. Mild degenerative changes of the spine. XR/XR chest 1V IMPRESSION: No acute pulmonary pathology.
[2021-11-28 22:30] VITALS: BP 143/97; PULSE 80; RESP 18; TEMP 37.6; O2SAT 98; BMI 36.9
[2021-11-28 23:06] LABS: Basophils Percent Auto 0.5 % (0-2); Eosinophils Absolute Auto 0.1 X10*3/uL (0.0-0.4); Eosinophils Percent Auto 3.2 % (0-4); Hematocrit 47.1 % (42.0-52.0); Imm Gran Abs Auto 0.01 X10*3/uL (0.00-0.03); Imm Gran Pct Auto 0.2 % (0.0-0.4); Lymphocytes Absolute Auto 1.3 X10*3/uL (1.2-4.9); Lymphocytes Percent Auto 32.1 % (20-40); MANUAL DIFF FLAG NO; Mean Corpuscular Hemoglobin 30.6 pg (27.0-33.0); Mean Corpuscular Volume 90.1 fL (80.0-98.0); Mean Platelet Volume 9.7 fL (9.4-12.4); Monocytes Absolute Auto 0.8 X10*3/uL (0.1-1.2); Monocytes Percent Auto 19.5 % (2-11); Neutrophils Absolute Auto 1.8 x10*3/uL (2.0-8.3); Neutrophils Percent Auto 44.5 % (45-73); Platelet Count 237 X10*3/uL (160-400); Red Blood Count 5.23 X10*6/uL (4.60-5.80); Red Cell Distribution Width 15.9 % (11.0-16.0); White Blood Count 4.1 X10*3/uL (4.8-10.8)
[2021-11-28 23:23] LABS: Alanine Aminotransferase 37 U/L (0-40); Albumin Level 4.1 g/dL (3.5-5.0); Alkaline Phosphatase 76 U/L (39-117); Anion Gap 14 (12-20); Aspartate Amino Transferase 28 U/L (5-37); Bilirubin Total 0.3 mg/dL (0.0-1.0); Blood Urea Nitrogen 11 mg/dL (9-16); Calcium 8.3 mg/dL (8.4-10.2); Carbon Dioxide 22 mmol/L (22-29); Chloride 103 mmol/L (96-108); Creatinine Clr Calc Pharmacy 125.6; Estimated Glomerular Filt Rate > 60; Glucose Random 118 mg/dL (60-115); Potassium 4.2 mmol/L (3.3-5.1); Sodium 135 mmol/L (135-145)
[2021-11-28 23:26] LABS: COVID-19 Test Negative (Negative); IDNOW Serial# 9DB6401D; Influenza A Negative (Negative); Influenza B2 Negative (Negative)
[2021-11-28 23:27] LABS: Troponin-I High Sensitivity < 3.5 ng/L (<3.5-35.0)
[2021-11-29 02:45] VITALS: BP 128/84; PULSE 70; RESP 18; O2SAT 98
[2021-11-29] MEDS: Albuterol Sulfate (0.083%) 2.5 MG/3 ML VIAL.NEB 5 MG INHALE (03:12)
--- NOTE | 2021-11-29 07:02 | ED_ITS ---
HPI - URI/Sore Throat General Chief Complaint: Upper Respiratory Symptoms Stated Complaint: asthma issue, chest and head pain Time Seen by Provider: 11/29/21 03:09 Source: patient, family () and sign language interpreter Mode of arrival: ambulatory History of Present Illness HPI Narrative: 56-year-old male with history of diabetes, hypertension, pulmonary fibrosis presents with persistent cough for 3 days, runny nose, headache but denies any fever, chills, shortness of breath and states that he has chest wall pain from all the coughing. Otherwise he denies any GI or symptoms. Patient does feel better after the albuterol treatment that he received here in the emergency room. Related Data Home Medications Medication Instructions Recorded Confirmed albuterol sulfate 90 mcg/actuation 2 puff PO Q6H PRN Wheezing 06/23/20 10/02/21 aerosol inhaler amlodipine 10 mg tablet 1 tab PO DAILY 06/23/20 10/02/21 enalapril maleate 20 mg tablet 1 tab PO DAILY 06/23/20 10/02/21 umeclidinium 62.5 mcg/actuation 62.5 mcg inhalation DAILY 06/23/20 10/02/21 blister powder for inhalation (Incruse Ellipta) Previous Rx's Medication Instructions Recorded dextromethorphan-guaifenesin 5 10 ml PO Q6H PRN cough #118 mL 06/25/20 mg-100 mg/5 mL oral liquid (Robitussin Cough-Chest Congestion DM) blood pressure test kit-large #1 ea 10/02/21 fluticasone furoate 100 25 inh inhalation BID 30 days #60 10/02/21 mcg-vilanterol 25 mcg/dose ea inhalation powder (Breo Ellipta) benzonatate 200 mg capsule 200 mg PO BID PRN cough 30 days 10/08/21 #30 caps fluticasone fur. 200 mcg-umeclid 1 inh inhalation DAILY 30 days #60 10/08/21 62.5 mcg-vilant 25 mcg ea inhalat.powder (Trelegy Ellipta) fluticasone propionate 50 2 spray intranasal DAILY 30 days 10/08/21 mcg/actuation nasal #15.8 mL spray,suspension aspirin 81 mg tablet,delayed 81 mg PO DAILY #90 tabs 10/22/21 release rosuvastatin 20 mg tablet 20 mg PO BEDTIME #90 tabs 10/22/21 metformin 500 mg tablet 250 mg PO DAILY 30 days #15 tabs 10/23/21 prednisone 50 mg tablet 50 mg PO DAILY 4 days #4 tabs 11/29/21 Allergies Allergy/AdvReac Type Severity Reaction Status Date / Time No Known Allergies Allergy Verified 10/08/21 10:53 Review of Systems Review of Systems: Pertinent positives and negatives as stated in HPI 10 point review of systems is otherwise negative. [facility] Past Medical History Source: nursing notes reviewed Medical History Bronchial asthma Chronic cough Degenerative disc disease HTN (hypertension) Lung fibrosis LUIS (obstructive sleep apnea) Surgical History S/P arterial stent Social History Social History Housing: Apartment Alcohol intake: current Alcohol intake frequency: holidays/special occasions only Patient Tobacco Use Status: Never used Tobacco e-Cigarette/Vaping Use: Never Used Substance Use Type: Marijuana Advance Directives: No Advance Directives Information Provided: Yes service: No Current occupational status: disabled Cognitive needs: No Hearing needs: No Vision needs: Yes Physical Exam Vital Signs: Vital Signs: Last Vital Signs Temp 99.6 F 11/28/21 22:30 Pulse 70 11/29/21 02:45 Resp 18 11/29/21 02:45 BP 128/84 11/29/21 02:45 Pulse Ox 98 11/29/21 02:45 O2 Del Method 11/29/21 02:45 BMI result Body Mass Index 36.9 VITAL SIGNS: Reviewed. GENERAL: Well developed, well nourished, in no acute distress. HEAD: Normocephalic/atraumatic EYES: PERRLA, EOMI EARS: Ext canals without abnormality, TMs non-bulging and non-erythematous NOSE: Nares patent bilateral OROPHARYNX: no oral lesions noted, posterior pharynx clear and non-erythematous without noted tonsillar enlargement/erythema/exudates NECK: Supple, no adenopathy LUNGS: Good inspiratory effort, coarse rhonchi consistent with underlying pulmonary fibrosis, no expiratory wheeze, no tachypnea, no increased work of breathing. SpO2<98> CARDIOVASCULAR: Regular rate and rhythm without noted murmurs, no JVD or lower extremity edema. ABDOMEN: Soft, non-tender, non-distended with bowel sounds. NEUROLOGIC: Alert and oriented x 4. Strength and sensation to light touch were grossly intact x 4. Course Course Course Narrative: 56-year-old male with history and clinical presentation consistent with exacerbation of underlying pulmonary fibrosis likely from viral etiology although on review of all investigations there is no leukocytosis and COVID-19 is negative. It was explained to both he and his that this does not mean that he is negative for COVID-19 and should continue to test for the next 2-3 days. Patient was provided with initial steroids here in the emergency room and otherwise there are no acute findings on his workup. He was discharged home with instructions to test himself and follow-up with his primary care provider. MDM - URI/Sore Throat Lab Data Result diagrams: 11/28/21 22:53 11/28/21 22:53 Labs: Lab Results 11/28/21 11/28/21 11/28/21 Range/Units 22:53 22:53 22:53 WBC 4.1 L (4.8-10.8) X10*3/uL RBC 5.23 (4.60-5.80) X10*6/uL Hgb 16.0 (14.0-18.0) g/dl Hct 47.1 (42.0-52.0) % MCV 90.1 (80.0-98.0) fL MCH 30.6 (27.0-33.0) pg MCHC 34.0 (31.0-36.0) g/dl RDW 15.9 (11.0-16.0) % Plt Count 237 (160-400) X10*3/uL MPV 9.7 (9.4-12.4) fL Immature Gran % (Auto) 0.2 (0.0-0.4) % Neut % (Auto) 44.5 L (45-73) % Lymph % (Auto) 32.1 (20-40) % Bourbon % (Auto) 19.5 H (2-11) % Eos % (Auto) 3.2 (0-4) % Baso % (Auto) 0.5 (0-2) % Lymph # (Auto) 1.3 (1.2-4.9) X10*3/uL [place] # (Auto) 0.8 (0.1-1.2) X10*3/uL Eos # (Auto) 0.1 (0.0-0.4) X10*3/uL Baso # (Auto) 0.0 (0.0-0.2) X10*3/uL Abs Immat Gran (auto) 0.01 (0.00-0.03) X10*3/uL Absolute Neuts (auto) 1.8 L (2.0-8.3) x10*3/uL Absolute Nucleated RBC 0.000 (0.0-0.012) X10*3/uL Nucleated RBC % (auto) 0.0 (0.0-0.2) /100WBC Sodium 135 (135-145) mmol/L Potassium 4.2 (3.3-5.1) mmol/L Chloride 103 (96-108) mmol/L Carbon Dioxide 22 (22-29) mmol/L Anion Gap 14 (12-20) BUN 11 (9-16) mg/dL Creatinine 0.83 (0.5-1.4) mg/dL Estim Creat Clear Calc 125.6 Estimated GFR > 60 Random Glucose 118 H (60-115) mg/dL Calcium 8.3 L D (8.4-10.2) mg/dL Total Bilirubin 0.3 (0.0-1.0) mg/dL AST 28 (5-37) U/L ALT 37 (0-40) U/L Alkaline Phosphatase 76 (39-117) U/L Troponin I High Sens < 3.5 (<3.5-35.0) ng/L Total Protein 7.0 (6.5-8.0) g/dL Albumin 4.1 (3.5-5.0) g/dL COVID-19 (LORRI) (Negative) COVID-19 Clin Com Influenza Type A (EZEQUIEL) (Negative) Influenza Type B (EZEQUIEL) (Negative) Influenza A & B Note 11/28/21 11/28/21 Range/Units 22:53 22:53 WBC (4.8-10.8) X10*3/uL RBC (4.60-5.80) X10*6/uL Hgb (14.0-18.0) g/dl Hct (42.0-52.0) % MCV (80.0-98.0) fL MCH (27.0-33.0) pg MCHC (31.0-36.0) g/dl RDW (11.0-16.0) % Plt Count (160-400) X10*3/uL MPV (9.4-12.4) fL Immature Gran % (Auto) (0.0-0.4) % Neut % (Auto) (45-73) % Lymph % (Auto) (20-40) % Bourbon % (Auto) (2-11) % Eos % (Auto) (0-4) % Baso % (Auto) (0-2) % Lymph # (Auto) (1.2-4.9) X10*3/uL Bourbon # (Auto) (0.1-1.2) X10*3/uL Eos # (Auto) (0.0-0.4) X10*3/uL Baso # (Auto) (0.0-0.2) X10*3/uL Abs Immat Gran (auto) (0.00-0.03) X10*3/uL Absolute Neuts (auto) (2.0-8.3) x10*3/uL Absolute Nucleated RBC (0.0-0.012) X10*3/uL Nucleated RBC % (auto) (0.0-0.2) /100WBC Sodium (135-145) mmol/L Potassium (3.3-5.1) mmol/L Chloride (96-108) mmol/L Carbon Dioxide (22-29) mmol/L Anion Gap (12-20) BUN (9-16) mg/dL Creatinine (0.5-1.4) mg/dL Estim Creat Clear Calc Estimated GFR Random Glucose (60-115) mg/dL Calcium (8.4-10.2) mg/dL Total Bilirubin (0.0-1.0) mg/dL AST (5-37) U/L ALT (0-40) U/L Alkaline Phosphatase (39-117) U/L Troponin I High Sens (<3.5-35.0) ng/L Total Protein (6.5-8.0) g/dL Albumin (3.5-5.0) g/dL COVID-19 (LORRI) Negative (Negative) COVID-19 Clin Com See Note Influenza Type A (EZEQUIEL) Negative (Negative) Influenza Type B (EZEQUIEL) Negative (Negative) Influenza A & B Note See Note Discharge Plan Discharge Clinical Impression: URI (upper respiratory infection), Pulmonary fibrosis Patient Disposition: Home, Self-Care Instructions: Pulmonary Fibrosis (ED), Upper Respiratory Infection (ED) Additional Instructions: 1.. Reanude todos los medicamentos caseros seg?n lo prescrito. 2. Complete el curso corto de esteroides que le agrawal recetado. Debbie medicamento aumentar? tanto speedy niveles de az?car ermelinda sanchez presi?n arterial. 3. Contin?e haci?ndose la prueba de COVID-19 con la prueba casera caitlin los pr?ximos 2 o 3 d?as y llame hoy mismo al consultorio de sanchez proveedor de atenci?n primaria para programar keyla kimberley de seguimiento para keyla reevaluaci?n. Regrese a la kishan de emergencias si los s?ntomas empeoran. Prescriptions: New prednisone 50 mg tablet 50 mg PO DAILY 4 Days Qty: 4 0RF No Action aspirin 81 mg tablet,delayed release (DR/EC) 81 mg PO DAILY Qty: 90 0RF rosuvastatin 20 mg tablet 20 mg PO BEDTIME Qty: 90 0RF metformin 500 mg tablet 250 mg PO DAILY 30 Days Qty: 15 3RF enalapril maleate 20 mg tablet 1 tab PO DAILY amlodipine 10 mg tablet 1 tab PO DAILY albuterol sulfate 90 mcg/actuation HFA aerosol inhaler 2 puff PO Q6H PRN (Reason: Wheezing) Incruse Ellipta 62.5 mcg/actuation blister with device 62.5 mcg inhalation DAILY Robitussin Cough-Chest Reagan DM 5-100 mg/5 mL liquid 10 ml PO Q6H PRN (Reason: cough) Qty: 118 0RF Breo Ellipta 100-25 mcg/dose blister with device 25 inh inhalation BID 30 Days Qty: 60 2RF (DME) blood pressure test kit-large Kit See Rx Instructions .Route Qty: 1 0RF Rx Instructions: As directed Trelegy Ellipta 200-62.5-25 mcg blister with device 1 inh inhalation DAILY 30 Days Qty: 60 12RF benzonatate 200 mg capsule 200 mg PO BID PRN (Reason: cough) 30 Days Qty: 30 0RF fluticasone propionate 50 mcg/actuation spray,suspension 2 spray intranasal DAILY 30 Days Qty: 15.8 11RF Referrals: Clayton Raza MD [Physician] - Print Language: Niuean
[2021-11-29] MEDS: predniSONE 10 MG TABLET 50 MG PO (07:44)
[2021-11-29] MEDS: Acetaminophen 325 MG TABLET 975 MG PO (07:45)
== END 2021-11-29 09:10 | disposition home or self-care (01) ==
PROVIDERS: Emergency Provider Student in an Organized Health Care Education/Training Program
DX: J06.9 Acute upper respiratory infection, unspecified (principal); J84.10 Pulmonary fibrosis, unspecified; Z20.822 Contact with and (suspected) exposure to COVID-19; E11.9 Type 2 diabetes mellitus without complications; I10 Essential (primary) hypertension; E78.5 Hyperlipidemia, unspecified; F12.90 Cannabis use, unspecified, uncomplicated; E66.9 Obesity, unspecified; Z68.36 Body mass index [BMI] 36.0-36.9, adult; Z79.82 Long term (current) use of aspirin; Z79.02 Long term (current) use of antithrombotics/antiplatelets; Z79.84 Long term (current) use of oral hypoglycemic drugs; Z79.899 Other long term (current) drug therapy
CPT/HCPCS: 71045; 80053; 84484; 85025; 87502; 87635; 93005; 99284

== ENCOUNTER 2021-12-02 06:05 | Emergency (ER) | payer MEDICARE, MEDICAID, SELFPAY ==
--- NOTE | ~2021-12-02 | CT_ITS ---
EXAMINATION: CT CHEST WITHOUT CONTRAST CLINICAL INFORMATION: Wheezing, shortness of breath, history of pulmonary fibrosis. COMPARISON: Chest radiographs dated 12/02/2021 and 06/23/2020. TECHNIQUE: Multidetector volumetric CT imaging of the chest was done. Axial MIP volume rendering provided. Sagittal and coronal reformatted images were obtained. This CT examination was performed using dose optimization techniques as appropriate, variously including the following: *Automated exposure control *Adjustment of mA and/or kV according to patient size (this includes techniques or standardized protocols for targeted exams where dose is matched to indication/reason for exam; i.e. extremities or head) *Use of iterative reconstruction technique DLP: 421 mGy-cm FINDINGS: LUNGS/PLEURA/AIRWAYS: Mild biapical and scattered parenchymal atelectasis/scarring is seen. Mild bronchiectasis is seen in the lingula and right middle lobe. Scattered nodules are seen. Algologist nodules are as follows: Right upper lobe, lateral: 0.5 cm, image 151, series 5 Right upper lobe, anterior: 0.5 cm, image 197, series 5 Right lower lobe, lateral: 0.5 cm, image 320, series 5 Left lower lobe, posteromedial: 0.9 cm, image 337, series 5 There are no pleural effusions. The airways are patent. MEDIASTINUM: The visualized thyroid gland is unremarkable. Mild thymic tissue in the anterior mediastinum without focal abnormality. Mild atherosclerosis in the aortic arch without significant dilatation. Moderate coronary artery calcifications. No pericardial effusion. Mild dilatation of the esophagus without focal abnormality. Very small hiatal hernia. Small coarsely calcified mediastinal and hilar lymph nodes. A community health representative right subcarinal lymph node measures 0.8 cm in long axis (image 20, series 3). UPPER ABDOMEN: MUSCULOSKELETAL: Multilevel marginal osteophyte formation most prominent inferiorly in the thoracic spine, right greater than left. SOFT TISSUES: Unremarkable. CT/CT chest wo con IMPRESSION: 1. Chronic pulmonary parenchymal changes with nodules measuring up to 0.9 cm. The left lower lobe nodule which is the largest shows volume averaging with adjacent pulmonary vessels confounding evaluation. These findings are nonspecific, but given the coarsely calcified mediastinal/hilar lymph nodes this could represent old granulomatous disease such as cervical lordosis. Correlate with patient history. Following Fleischner Society guidelines, a follow-up chest CT scan is recommended in 3 months to assess for change.
--- NOTE | ~2021-12-02 | XR_ITS ---
EXAMINATION: XR CHEST CLINICAL INFORMATION: Shortness of breath, cough, wheezing. COMPARISON: 11/20/2021 this radiograph. TECHNIQUE: 2 views of the chest were obtained. FINDINGS: No significant abnormality is noted involving the heart, lungs, mediastinum, bony thorax or soft tissues. XR/XR chest 2V IMPRESSION: No acute cardiopulmonary process.
[2021-12-02 06:23] VITALS: BP 140/73; PULSE 85; RESP 22; TEMP 36.6; O2SAT 95; BMI 38.7
[2021-12-02 07:39] VITALS: BP 129/72; PULSE 77; RESP 20; TEMP 36.6; O2SAT 96
--- NOTE | 2021-12-02 08:12 | ECG_ITS ---
Test Reason : asthma Blood Pressure : / mmHG Vent. Rate : 077 BPM Atrial Rate : 077 BPM P-R Int : 158 ms QRS Dur : 086 ms QT Int : 360 ms P-R-T Axes : 072 055 033 degrees QTc Int : 407 ms Normal sinus rhythm Normal ECG When compared with ECG of 28-NOV-2021 22:41, No significant change was found Referred By: Camila Elizalde Electronically Signed By:YOLI BERRIOS MD
--- NOTE | 2021-12-02 08:21 | ED_ITS ---
HPI - Asthma General Chief Complaint: Asthma Stated Complaint: asthma Time Seen by Provider: 12/02/21 06:43 Source: patient, family and diplomatic interpreter Mode of arrival: ambulatory Limitations: no limitations History of Present Illness HPI Narrative: 56 yo male with history of pulmonary fibrosis x 20 years (occupational exposures), LUIS, HTN, HLD, CAD, DM2 who presents to the ER for evaluation of SOB and wheezing for the last 9-10 days. He was recently seen here on 11/29 for similar complaints and was ultimately discharged on oral prednisone. he reports he has been using his nebulizer at home 2 times a day with no improvement in his shortness of breath and wheezing. He has a cough and is no longer bring up any phlegm, was previously bringing up some sputum that was white. at the start of his symptoms he had runny nose and some sinus congestion as did his , she got better quickly and his symptoms persisted and lead to worsening of his asthma symptoms. his reports that whenever he gets sick his wheezing flares up. Patient denies any fever or chills. He has no chest pain. He is from [place] and Just saw Dr. Everett from [facility] in October. 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 He was in been on the transplant list however his condition improved significantly and he was able to be weaned off of supplemental oxygen. He did a 6 minute walk test with Dr. Everett, was dyspneic with exertion but not hypoxic. X-ray from 2020 did not show any reticular nodule opacities to suggest ILDHe reports a history of requiring hospitalizations several times for his lungs but he has never been intubated before. complaint: shortness of breath and wheezing Onset (ago): day(s) (-) Severity: worse than usual Context: recent URI Associated symptoms: dry cough Asthma History: adult onset Treatments Prior to Arrival: inhaled bronchodilator Related Data Current Asthma Therapy: inhaled bronchodilator and recent oral steroid Home Medications Medication Instructions Recorded Confirmed albuterol sulfate 90 mcg/actuation 2 puff PO Q6H PRN Wheezing 06/23/20 10/02/21 aerosol inhaler amlodipine 10 mg tablet 1 tab PO DAILY 06/23/20 10/02/21 enalapril maleate 20 mg tablet 1 tab PO DAILY 06/23/20 10/02/21 umeclidinium 62.5 mcg/actuation 62.5 mcg inhalation DAILY 06/23/20 10/02/21 blister powder for inhalation (Incruse Ellipta) Previous Rx's Medication Instructions Recorded dextromethorphan-guaifenesin 5 10 ml PO Q6H PRN cough #118 mL 06/25/20 mg-100 mg/5 mL oral liquid (Robitussin Cough-Chest Congestion DM) blood pressure test kit-large #1 ea 10/02/21 fluticasone furoate 100 25 inh inhalation BID 30 days #60 10/02/21 mcg-vilanterol 25 mcg/dose ea inhalation powder (Breo Ellipta) benzonatate 200 mg capsule 200 mg PO BID PRN cough 30 days 10/08/21 #30 caps fluticasone fur. 200 mcg-umeclid 1 inh inhalation DAILY 30 days #60 10/08/21 62.5 mcg-vilant 25 mcg ea inhalat.powder (Trelegy Ellipta) fluticasone propionate 50 2 spray intranasal DAILY 30 days 10/08/21 mcg/actuation nasal #15.8 mL spray,suspension aspirin 81 mg tablet,delayed 81 mg PO DAILY #90 tabs 10/22/21 release rosuvastatin 20 mg tablet 20 mg PO BEDTIME #90 tabs 10/22/21 metformin 500 mg tablet 250 mg PO DAILY 30 days #15 tabs 10/23/21 prednisone 50 mg tablet 50 mg PO DAILY 4 days #4 tabs 11/29/21 albuterol sulfate 1.25 mg/3 mL 1.25 mg (3 mL) inhalation QID PRN 12/02/21 solution for nebulization shortness of breath or wheezing #75 mL doxycycline hyclate 100 mg tablet 100 mg PO BID #14 tabs 12/02/21 prednisone 10 mg tablets in a dose See Rx Instructions .Route 12/02/21 pack .COMPLEX #21 ea Allergies Allergy/AdvReac Type Severity Reaction Status Date / Time No Known Allergies Allergy Verified 10/08/21 10:53 Review of Systems Review of Systems: Constitutional: No Fever, No Chills ENT/Mouth: No sore throat, No Rhinorrhea, No Swallowing Difficulty Eyes: No Eye Pain, No Swelling, No Redness Cardiovascular: No Chest Pain, +SOB, No Orthopnea, No Edema Respiratory: + Cough, No Sputum, + Wheezing, + dyspnea Gastrointestinal: No Nausea, No Vomiting, No Diarrhea, No abdominal Pain Genitourinary: No Dysuria, No Urinary Frequency, No Hematuria Musculoskeletal: No joint pain, No Myalgias Skin: No Skin Lesions, No rash Neuro: + Weakness, No Numbness, No Dizziness, No Headache Psych: No Anxiety/Panic, No Depression Heme/Lymph: No Bruising, No Lymphadenopathy Endocrine: No Polyuria, No Polydipsia [facility] Past Medical History Medical History Bronchial asthma Chronic cough Degenerative disc disease HTN (hypertension) Lung fibrosis LUIS (obstructive sleep apnea) Surgical History S/P arterial stent Social History Social History Housing: Apartment Alcohol intake: never Patient Tobacco Use Status: Never used Tobacco e-Cigarette/Vaping Use: Never Used Use of substances other than those prescribed or required for medical reasons: No Substance Use Type: Marijuana Advance Directives: No Advance Directives Information Provided: No service: No Current occupational status: disabled Cognitive needs: No Hearing needs: No Vision needs: Yes Physical Exam Vital Signs: Vital Signs: Last Vital Signs Temp 97.9 F 12/02/21 10:12 Pulse 94 12/02/21 12:14 Resp 17 12/02/21 12:14 BP 113/67 12/02/21 12:14 Pulse Ox 95 12/02/21 12:14 O2 Del Method 12/02/21 12:14 BMI result Body Mass Index 38.7 Appearance: Alert. Oriented X3. No acute distress. Eyes: Pupils equal, round and reactive to light. ENT: Pharynx normal. Neck: Normal inspection. Neck supple. CVS: Normal heart rate and rhythm. Pulses normal. Respiratory: Mild respiratory distress, belly breathing. Patient inspiratory and expiratory wheezes throughout, coarse. No crackles. No rhonchi. Abdomen: Soft and nontender. +BS x4 Skin: Skin warm and dry. Normal skin color. Normal skin turgor. No rashes. Extremities: No lower extremity edema. Neuro: Oriented X 3. No motor deficit. No sensory deficit. Course Course Course Narrative: 56-year-old male with a longstanding history of pulmonary fibrosis due to occupational exposures Not on any supplemental oxygen who presents to the ER for evaluation of shortness of breath and wheezing for the last week and a half after having a mild URI. He reports no improvement in his symptoms with oral steroids, nebulizer treatments at home. On arrival to the ER he is saturating well on room air, mild respiratory distress with belly breathing and audible wheezing throughout the lungs. will plan to give an hour long albuterol treatment, IV steroids, check chest x-ray and lab workup. Will reassess. Reevaluation(s) Reevaluation #1: still wheezing after 1st nebulizer treatment, will plan to repeat. Upon review of chart patient was wheezy and dyspneic on evaluation in the office. unlikely will be able to get his lungs to be completely care but will repeat a nebulizer and reassess. Will get CT scan for further evaluation of the lung parenchyma. Reevaluation #2: CT of the chest is showing chronic pulmonary parenchymal changes with nodules measuring up to 0.9 cm. There are nonspecific coarsely calcified mediastinal/hilar lymph nodes that could represent old granulomatous disease. after 2nd nebulizer treatment patient's aeration is much improved. He is course but wheezes has significantly improved. He is in no respiratory distress. His oxygen saturations remain 96% on room air. He is feeling better. He would like an antibiotic for discharge, saying that this usually makes him better and he has yellow phlegm. imaging does not show any overt pneumonia but will treat for acute bronchitis with doxycycline and prednisone taper. He will follow-up with Dr. Everett. He is stable for discharge home. Return precautions were discussed. [facility] - Asthma Medical Records Attestation: I reviewed the patient's medical records. Lab Data Attestation: I reviewed the patient's lab results. Result diagrams: 12/02/21 08:51 12/02/21 08:51 Labs: Lab Results 12/02/21 12/02/21 12/02/21 Range/Units 08:51 08:51 08:51 WBC 9.2 (4.8-10.8) X10*3/uL RBC 5.12 (4.60-5.80) X10*6/uL Hgb 15.7 (14.0-18.0) g/dl Hct 46.3 (42.0-52.0) % MCV 90.4 (80.0-98.0) fL MCH 30.7 (27.0-33.0) pg MCHC 33.9 (31.0-36.0) g/dl RDW 15.8 (11.0-16.0) % Plt Count 237 (160-400) X10*3/uL MPV 9.4 (9.4-12.4) fL Immature Gran % (Auto) 0.3 (0.0-0.4) % Neut % (Auto) 59.7 (45-73) % Lymph % (Auto) 26.2 (20-40) % Cuming % (Auto) 13.4 H (2-11) % Eos % (Auto) 0.3 (0-4) % Baso % (Auto) 0.1 (0-2) % Lymph # (Auto) 2.4 (1.2-4.9) X10*3/uL Cuming # (Auto) 1.2 (0.1-1.2) X10*3/uL Eos # (Auto) 0.0 (0.0-0.4) X10*3/uL Baso # (Auto) 0.0 (0.0-0.2) X10*3/uL Abs Immat Gran (auto) 0.03 (0.00-0.03) X10*3/uL Absolute Neuts (auto) 5.5 (2.0-8.3) x10*3/uL Absolute Nucleated RBC 0.000 (0.0-0.012) X10*3/uL Nucleated RBC % (auto) 0.0 (0.0-0.2) /100WBC Sodium 141 (135-145) mmol/L Potassium 3.9 (3.3-5.1) mmol/L Chloride 103 (96-108) mmol/L Carbon Dioxide 27 (22-29) mmol/L Anion Gap 15 (12-20) BUN 19 H D (9-16) mg/dL Creatinine 0.85 (0.5-1.4) mg/dL Estim Creat Clear Calc 125.8 Estimated GFR > 60 Random Glucose 78 (60-115) mg/dL Calcium 8.9 D (8.4-10.2) mg/dL Magnesium 2.0 (1.6-2.6) mg/dL Total Bilirubin 0.4 (0.0-1.0) mg/dL Direct Bilirubin 0.2 (0.0-0.5) mg/dL AST 22 (5-37) U/L ALT 33 (0-40) U/L Alkaline Phosphatase 60 D (39-117) U/L B-Natriuretic Peptide < 10 (<100) pg/mL Total Protein 7.1 (6.5-8.0) g/dL Albumin 4.3 (3.5-5.0) g/dL Procalcitonin ng/mL COVID-19 ([facility]) (Negative) COVID-19 Clin Com 12/02/21 12/02/21 Range/Units 08:52 08:52 WBC (4.8-10.8) X10*3/uL RBC (4.60-5.80) X10*6/uL Hgb (14.0-18.0) g/dl Hct (42.0-52.0) % MCV (80.0-98.0) fL MCH (27.0-33.0) pg MCHC (31.0-36.0) g/dl RDW (11.0-16.0) % Plt Count (160-400) X10*3/uL MPV (9.4-12.4) fL Immature Gran % (Auto) (0.0-0.4) % Neut % (Auto) (45-73) % Lymph % (Auto) (20-40) % Cuming % (Auto) (2-11) % Eos % (Auto) (0-4) % Baso % (Auto) (0-2) % Lymph # (Auto) (1.2-4.9) X10*3/uL Cuming # (Auto) (0.1-1.2) X10*3/uL Eos # (Auto) (0.0-0.4) X10*3/uL Baso # (Auto) (0.0-0.2) X10*3/uL Abs Immat Gran (auto) (0.00-0.03) X10*3/uL Absolute Neuts (auto) (2.0-8.3) x10*3/uL Absolute Nucleated RBC (0.0-0.012) X10*3/uL Nucleated RBC % (auto) (0.0-0.2) /100WBC Sodium (135-145) mmol/L Potassium (3.3-5.1) mmol/L Chloride (96-108) mmol/L Carbon Dioxide (22-29) mmol/L Anion Gap (12-20) BUN (9-16) mg/dL Creatinine (0.5-1.4) mg/dL Estim Creat Clear Calc Estimated GFR Random Glucose (60-115) mg/dL Calcium (8.4-10.2) mg/dL Magnesium (1.6-2.6) mg/dL Total Bilirubin (0.0-1.0) mg/dL Direct Bilirubin (0.0-0.5) mg/dL AST (5-37) U/L ALT (0-40) U/L Alkaline Phosphatase (39-117) U/L B-Natriuretic Peptide (<100) pg/mL Total Protein (6.5-8.0) g/dL Albumin (3.5-5.0) g/dL Procalcitonin 0.02 ng/mL COVID-19 ([facility]) Negative (Negative) COVID-19 Clin Com See Note ECG Data Attestation: I personally reviewed and interpreted this ECG as follows: ECG interpretation date: 12/02/21 ECG interpretation time: 10:41 Prior ECG tracings: available for review Interpretation: Normal sinus rhythm, ventricular rate 77 beats per minute, normal QRS, normal QTC, no ST segment elevation or depression Critical Care Time Critical Care Time Critical Care Time: Yes Total Critical Care Time: 35 Attestation: I have personally provided critical care time exclusive of time spent on separately billable procedures. Time includes review of lab data, radiology results, frequent bedside reassessments, discussion with consultants, and monitoring for potential decompensation. Intervention performed as documented. Discharge Plan Discharge Clinical Impression: Asthma with acute exacerbation Patient Disposition: Home, Self-Care Instructions: Asthma (ED) Additional Instructions: Continue the previously prescribed Prednisone 50 mg. Once those are completed start the newly prescribed Prednisone Taper - complete the entire course Take the prescribed antibiotic as directed While you are feeling unwell, use your nebulizer 3-4 times per day Follow up with Dr. Everett If you develop new or worsening symptoms call 911 or come back to the ER for further evaluation. Prescriptions: New doxycycline hyclate 100 mg tablet 100 mg PO BID Qty: 14 0RF prednisone 10 mg tablets,dose pack See Rx Instructions .ROUTE .COMPLEX Qty: 21 0RF Rx Instructions: take 4 tab x2 days then 3 tabs x2 days then 2 tabs x2 days then 1 tab x2 days albuterol sulfate 1.25 mg/3 mL solution for nebulization 1.25 mg inhalation QID PRN (Reason: shortness of breath or wheezing) Qty: 75 0RF No Action aspirin 81 mg tablet,delayed release (DR/EC) 81 mg PO DAILY Qty: 90 0RF rosuvastatin 20 mg tablet 20 mg PO BEDTIME Qty: 90 0RF metformin 500 mg tablet 250 mg PO DAILY 30 Days Qty: 15 3RF enalapril maleate 20 mg tablet 1 tab PO DAILY amlodipine 10 mg tablet 1 tab PO DAILY albuterol sulfate 90 mcg/actuation HFA aerosol inhaler 2 puff PO Q6H PRN (Reason: Wheezing) Incruse Ellipta 62.5 mcg/actuation blister with device 62.5 mcg inhalation DAILY Robitussin Cough-Chest Reagan DM 5-100 mg/5 mL liquid 10 ml PO Q6H PRN (Reason: cough) Qty: 118 0RF prednisone 50 mg tablet 50 mg PO DAILY 4 Days Qty: 4 0RF Breo Ellipta 100-25 mcg/dose blister with device 25 inh inhalation BID 30 Days Qty: 60 2RF (DME) blood pressure test kit-large Kit See Rx Instructions .Route Qty: 1 0RF Rx Instructions: As directed Trelegy Ellipta 200-62.5-25 mcg blister with device 1 inh inhalation DAILY 30 Days Qty: 60 12RF benzonatate 200 mg capsule 200 mg PO BID PRN (Reason: cough) 30 Days Qty: 30 0RF fluticasone propionate 50 mcg/actuation spray,suspension 2 spray intranasal DAILY 30 Days Qty: 15.8 11RF Referrals: Adrien Everett MD [Physician] - Print Language: Greek
[2021-12-02] MEDS: Albuterol Sulfate (0.083%) 2.5 MG/3 ML VIAL.NEB 10 MG INHALE ×2 (08:30→10:33)
[2021-12-02 08:33] VITALS: PULSE 82; RESP 18; O2SAT 96
--- NOTE | 2021-12-02 08:50 | PC.NURSE ---
pt seen by organ recovery coordinator (tim), pt aware of plan of care.
[2021-12-02 08:58] LABS: MANUAL DIFF FLAG NO
[2021-12-02 08:59] LABS: Basophils Percent Auto 0.1 % (0-2); Eosinophils Percent Auto 0.3 % (0-4); Hematocrit 46.3 % (42.0-52.0); Hemoglobin 15.7 g/dl (14.0-18.0); Imm Gran Abs Auto 0.03 X10*3/uL (0.00-0.03); Imm Gran Pct Auto 0.3 % (0.0-0.4); Lymphocytes Absolute Auto 2.4 X10*3/uL (1.2-4.9); Lymphocytes Percent Auto 26.2 % (20-40); Mean Corpuscular HGB Conc 33.9 g/dl (31.0-36.0); Mean Corpuscular Hemoglobin 30.7 pg (27.0-33.0); Mean Corpuscular Volume 90.4 fL (80.0-98.0); Mean Platelet Volume 9.4 fL (9.4-12.4); Monocytes Absolute Auto 1.2 X10*3/uL (0.1-1.2); Monocytes Percent Auto 13.4 % (2-11); Neutrophils Absolute Auto 5.5 x10*3/uL (2.0-8.3); Neutrophils Percent Auto 59.7 % (45-73); Platelet Count 237 X10*3/uL (160-400); Red Blood Count 5.12 X10*6/uL (4.60-5.80); Red Cell Distribution Width 15.8 % (11.0-16.0); White Blood Count 9.2 X10*3/uL (4.8-10.8)
[2021-12-02 09:14] LABS: COVID-19 Test Negative (Negative)
[2021-12-02] MEDS: methylPREDNISolone Sod Succ 125 MG/2 ML VIAL IVPUSH (09:24)
[2021-12-02 09:25] LABS: Alanine Aminotransferase 33 U/L (0-40); Albumin Level 4.3 g/dL (3.5-5.0); Alkaline Phosphatase 60 U/L (39-117); Anion Gap 15 (12-20); Aspartate Amino Transferase 22 U/L (5-37); Bilirubin Direct 0.2 mg/dL (0.0-0.5); Bilirubin Total 0.4 mg/dL (0.0-1.0); Blood Urea Nitrogen 19 mg/dL (9-16); Calcium 8.9 mg/dL (8.4-10.2); Carbon Dioxide 27 mmol/L (22-29); Chloride 103 mmol/L (96-108); Creatinine Clr Calc Pharmacy 125.8; Estimated Glomerular Filt Rate > 60; Glucose Random 78 mg/dL (60-115); Potassium 3.9 mmol/L (3.3-5.1); Sodium 141 mmol/L (135-145); Total Protein 7.1 g/dL (6.5-8.0)
[2021-12-02 09:31] LABS: B Type Natriuretic Peptide < 10 pg/mL (<100)
[2021-12-02 09:44] LABS: Procalcitonin 0.02 ng/mL
[2021-12-02 10:12] VITALS: BP 122/62; PULSE 79; RESP 18; TEMP 36.6; O2SAT 95
[2021-12-02 10:34] VITALS: PULSE 73; RESP 18; O2SAT 99
[2021-12-02 12:14] VITALS: BP 113/67; PULSE 94; RESP 17; O2SAT 95
== END 2021-12-02 14:17 | disposition home or self-care (01) ==
PROVIDERS: Physician Assistant; Emergency Provider Emergency Medicine
DX: J45.901 Unspecified asthma with (acute) exacerbation (principal); R06.02 Shortness of breath; I25.10 Atherosclerotic heart disease of native coronary artery without angina pectoris; M54.6 Pain in thoracic spine; E11.9 Type 2 diabetes mellitus without complications; R05.9 Cough, unspecified; Z20.822 Contact with and (suspected) exposure to COVID-19; Z79.899 Other long term (current) drug therapy
CPT/HCPCS: 71046; 71250; 80048; 80076; 83735; 83880; 84145; 85025; 87635; 93005; 94640; 94644; 96374; 99284; 99285; J2930

== ENCOUNTER → 2022-01-10 10:03 | Outpatient (BNVA) | payer MEDICARE, MEDICAID, SELFPAY | PROVIDERS: PCP Internal Medicine; Visit Provider Hospitalist | DX: J45.40 Moderate persistent asthma, uncomplicated (principal); J84.10 Pulmonary fibrosis, unspecified; R05.3 Chronic cough; G47.33 Obstructive sleep apnea (adult) (pediatric); K44.9 Diaphragmatic hernia without obstruction or gangrene | CPT/HCPCS: 99212 ==

== ENCOUNTER 2022-02-03 10:30 | Outpatient (REF) | payer MEDICARE, MEDICAID, SELFPAY ==
[2022-02-03 11:08] LABS: MANUAL DIFF FLAG NO
[2022-02-03 11:44] LABS: Basophils Percent Auto 0.5 % (0-2); Eosinophils Absolute Auto 0.1 X10*3/uL (0.0-0.4); Eosinophils Percent Auto 2.7 % (0-4); Hematocrit 51.2 % (42.0-52.0); Hemoglobin 17.1 g/dl (14.0-18.0); Lymphocytes Absolute Auto 1.2 X10*3/uL (1.2-4.9); Lymphocytes Percent Auto 31.4 % (20-40); Mean Corpuscular HGB Conc 33.4 g/dl (31.0-36.0); Mean Corpuscular Hemoglobin 30.3 pg (27.0-33.0); Mean Corpuscular Volume 90.6 fL (80.0-98.0); Mean Platelet Volume 10.9 fL (9.4-12.4); Monocytes Absolute Auto 0.5 X10*3/uL (0.1-1.2); Monocytes Percent Auto 13.5 % (2-11); Neutrophils Absolute Auto 1.9 x10*3/uL (2.0-8.3); Neutrophils Percent Auto 51.9 % (45-73); Platelet Count 209 X10*3/uL (160-400); Red Blood Count 5.65 X10*6/uL (4.60-5.80); Red Cell Distribution Width 16.3 % (11.0-16.0); White Blood Count 3.7 X10*3/uL (4.8-10.8)
[2022-02-03 11:57] LABS: Estimated Average Glucose 126 mg/dL
[2022-02-03 12:26] LABS: Alanine Aminotransferase 33 U/L (0-40); Albumin Level 4.2 g/dL (3.5-5.0); Alkaline Phosphatase 68 U/L (39-117); Anion Gap 15 (12-20); Aspartate Amino Transferase 23 U/L (5-37); Bilirubin Total 0.5 mg/dL (0.0-1.0); Blood Urea Nitrogen 17 mg/dL (9-16); Calcium 9.1 mg/dL (8.4-10.2); Carbon Dioxide 24 mmol/L (22-29); Chloride 106 mmol/L (96-108); Cholesterol 165 mg/dL; Estimated Glomerular Filt Rate > 60; Glucose Fasting 116 mg/dL (60-99); HDL Cholesterol 69 mg/dL; LDL Cholesterol Calculated 84 mg/dl; Potassium 4.4 mmol/L (3.3-5.1); Sodium 141 mmol/L (135-145); Total Protein 6.9 g/dL (6.5-8.0); Triglycerides 63 mg/dL
[2022-02-03 12:32] LABS: Appearance Urine Clear; Color Urine Yellow; Glucose Urine UA Negative (Negative); Leukocyte Esterase Urine Negative (Negative); Nitrite Urine Negative (Negative); PH 7.5 (5.0-9.0); Specific Gravity - Urine 1.015 (1.005-1.025); Urine Blood Negative (Negative); Urine Ketones Negative (Negative); Urine Protein Negative (Neg-Trace)
[2022-02-03 12:41] LABS: TSH reflex Free T4 1.14 uIU/mL (0.32-4.0); Vitamin D 25-OH Total 18.6 ng/mL (>30)
[2022-02-03 12:48] LABS: Creatinine Urine 84.27 mg/dL; Microalbum/Creatinine Ratio Ur 10.6 ug/mg cr
[2022-02-03 13:18] LABS: Prostate Specific Antigen 14.58 ng/mL (<0.05-4.0)
== END 2022-02-03 10:31 | disposition home or self-care (01) ==
LOC: HO.LAB 10:30
PROVIDERS: PCP Internal Medicine; Visit Provider Internal Medicine
DX: I10 Essential (primary) hypertension (principal); E11.65 Type 2 diabetes mellitus with hyperglycemia; E78.00 Pure hypercholesterolemia, unspecified; E55.9 Vitamin D deficiency, unspecified; N40.0 Benign prostatic hyperplasia without lower urinary tract symptoms; Z12.5 Encounter for screening for malignant neoplasm of prostate
CPT/HCPCS: 80053; 80061; 81003; 82043; 82306; 83036; 84153; 84443; 85025; 85027

== ENCOUNTER → 2022-03-10 11:08 | Outpatient (BNVA) | payer MEDICARE, MEDICAID, SELFPAY | PROVIDERS: PCP Internal Medicine; Visit Provider Internal Medicine | DX: K44.9 Diaphragmatic hernia without obstruction or gangrene (principal); K21.9 Gastro-esophageal reflux disease without esophagitis; J84.10 Pulmonary fibrosis, unspecified; R05.3 Chronic cough | CPT/HCPCS: 99202 ==

== ENCOUNTER 2022-04-29 16:43 | Emergency (ER) | payer MEDICARE, MEDICAID, SELFPAY ==
--- NOTE | ~2022-04-29 | XR_ITS ---
EXAMINATION: XR CHEST CLINICAL INFORMATION: Cough and SOB. COMPARISON: Chest 12/02/2021 TECHNIQUE: Frontal view of the chest was obtained. FINDINGS: The lungs are well-expanded and clear. Patchy there is bilateral bronchial wall thickening and patchy opacity in the right middle lobe and right lower lobe. Heart size is normal. Pulmonary vascularity is normal. No gross bony abnormality seen. XR/XR chest 1V IMPRESSION: Bilateral bronchial wall thickening and patchy opacity right middle lobe and right lower lobe suspicious for early bronchopneumonia.
[2022-04-29 17:10] VITALS: BP 120/97; PULSE 89; RESP 20; TEMP 36.8; O2SAT 94; BMI 35.0
--- NOTE | 2022-04-29 17:11 | ED_ITS ---
HPI - General Adult General Chief complaint: Asthma Stated complaint: Asthma Time Seen by Provider: 04/29/22 22:56 Related Data Home Medications Medication Instructions Recorded Confirmed albuterol sulfate 90 mcg/actuation 2 puff PO Q6H PRN Wheezing 06/23/20 12/24/21 aerosol inhaler fluticasone furoate 100 1 ea inhalation BID 03/10/22 mcg-vilanterol 25 mcg/dose inhalation powder (Breo Ellipta) Previous Rx's Medication Instructions Recorded blood pressure test kit-large #1 ea 10/02/21 albuterol sulfate 1.25 mg/3 mL 1.25 mg (3 mL) inhalation QID PRN 12/04/21 solution for nebulization shortness of breath or wheezing #75 mL albuterol sulfate 90 mcg/actuation 2 puff inhalation Q6H PRN 12/04/21 aerosol inhaler (Ventolin HFA) shortness of breath or wheezing #6.7 grams enalapril maleate 20 mg tablet 20 mg PO DAILY #90 tabs 12/09/21 fluticasone fur. 200 mcg-umeclid 1 inh inhalation DAILY 30 days #60 12/24/21 62.5 mcg-vilant 25 mcg ea inhalat.powder (Trelegy Ellipta) aspirin 81 mg tablet,delayed 81 mg PO DAILY #90 tabs 01/07/22 release metformin 500 mg tablet 250 mg PO DAILY 30 days #15 tabs 02/02/22 omeprazole 20 mg capsule,delayed 20 mg PO DAILY 4 weeks #28 caps 03/10/22 release amlodipine 10 mg tablet 10 mg PO DAILY 90 days #90 tabs 03/12/22 rosuvastatin 20 mg tablet 20 mg PO BEDTIME #90 tabs 04/09/22 albuterol sulfate 90 mcg/actuation 2 puff inhalation Q4-6H PRN 04/30/22 aerosol inhaler (ProAir HFA) shortness of breath or wheezing #8.5 grams benzonatate 200 mg capsule 200 mg PO TID PRN cough #30 caps 04/30/22 doxycycline hyclate 100 mg tablet 100 mg PO BID #20 tabs 04/30/22 prednisone 20 mg tablet 40 mg PO DAILY #10 tabs 04/30/22 Allergies Allergy/AdvReac Type Severity Reaction Status Date / Time No Known Allergies Allergy Verified 04/29/22 17:16 [facility] Past Medical History Medical History Benign essential hypertension Bronchial asthma Chronic cough Coronary artery disease Degenerative disc disease Diabetes mellitus Hiatal hernia Hiatal hernia HTN (hypertension) Lung fibrosis Obesity (BMI 30-39.9) LIUS (obstructive sleep apnea) Pure hypercholesterolemia Surgical History Hx of colonoscopy S/P arterial stent Social History Social History Housing: Apartment Alcohol intake: never Patient Tobacco Use Status: Never used Tobacco e-Cigarette/Vaping Use: Never Used Substance Use Type: Marijuana Advance Directives: No Advance Directives Information Provided: No service: No Current occupational status: disabled Cognitive needs: No Hearing needs: No Vision needs: Yes Physical Exam ED Vital Signs: Vital Signs - 24 hr 04/29/22 17:10 04/29/22 23:03 04/29/22 23:36 Temperature 98.3 F 98.4 F Pulse Rate 89 84 94 Respiratory Rate 20 20 20 Blood Pressure 120/97 H 152/94 H Pulse Oximetry 94 98 Oxygen Delivery Method Room Air Room Air 04/30/22 00:22 Temperature 98.1 F Pulse Rate 85 Respiratory Rate 16 Blood Pressure 135/86 Pulse Oximetry 97 Oxygen Delivery Method Room Air BMI result Body Mass Index 35.0 Course Course Course Narrative: 1711 56 year old male hx htn, hld, dm, gerd, CAD, pulmonary fibrosis, presents w/ cough, sob, chest pain w/ coughing X 4 days. Has been using his inhaler and nebulizer more often. No known sick contacts. COVID vaccinated, not vaccinated against flu. PE: audible wheezing, 94% on RA. All other vitals stable. Plan: labs, trop, ekg, cxr, viral testing. Medications Administered Discontinued Medications Generic Name Dose Route Start Last Admin Trade Name Freq PRN Reason Stop Dose Admin Albuterol Sulfate 2.5 mg/ 0 mg 04/29/22 23:22 04/29/22 23:34 Albuterol/Ipratropium 3 ml INHALE 04/29/22 23:23 5 each ONCE ONE Administration Doxycycline Monohydrate 100 mg 04/29/22 23:23 04/30/22 00:09 Doxycycline Monohydrate 100 Mg Capsule PO 04/29/22 23:24 100 mg ONCE ONE Administration Guaifenesin/Codeine Phosphate 10 ml 04/29/22 23:23 04/30/22 00:08 Guaifen/Codeine Sf 200/20/10ml 10 Ml Liquid PO 04/29/22 23:24 10 ml ONCE ONE Administration Prednisone 60 mg 04/29/22 23:23 04/30/22 00:09 Prednisone 20 Mg Tablet PO 04/29/22 23:24 60 mg ONCE ONE Administration Medical Decision Making Lab Data Result Diagrams: 04/29/22 17:34 04/29/22 17:34 Labs: Lab Results 04/29/22 04/29/22 04/29/22 Range/Units 17:34 17:34 17:34 WBC 5.5 (4.8-10.8) X10*3/uL RBC 5.59 (4.60-5.80) X10*6/uL Hgb 17.1 (14.0-18.0) g/dl Hct 49.9 (42.0-52.0) % MCV 89.3 (80.0-98.0) fL MCH 30.6 (27.0-33.0) pg MCHC 34.3 (31.0-36.0) g/dl RDW 15.1 (11.0-16.0) % Plt Count 245 (160-400) X10*3/uL MPV 10.2 (9.4-12.4) fL Immature Gran % (Auto) 1.5 H (0.0-0.4) % Neut % (Auto) 80.0 H (45-73) % Lymph % (Auto) 12.8 L (20-40) % [place] % (Auto) 5.3 (2-11) % Eos % (Auto) 0.0 (0-4) % Baso % (Auto) 0.4 (0-2) % Lymph # (Auto) 0.7 L (1.2-4.9) X10*3/uL [place] # (Auto) 0.3 (0.1-1.2) X10*3/uL Eos # (Auto) 0.0 (0.0-0.4) X10*3/uL Baso # (Auto) 0.0 (0.0-0.2) X10*3/uL Abs Immat Gran (auto) 0.08 H (0.00-0.03) X10*3/uL Absolute Neuts (auto) 4.4 (2.0-8.3) x10*3/uL Absolute Nucleated RBC 0.000 (0.0-0.012) X10*3/uL Nucleated RBC % (auto) 0.0 (0.0-0.2) /100WBC Sodium 141 (135-145) mmol/L Potassium 4.6 (3.3-5.1) mmol/L Chloride 104 (96-108) mmol/L Carbon Dioxide 26 (22-29) mmol/L Anion Gap 16 (12-20) BUN 13 (9-16) mg/dL Creatinine 0.97 (0.5-1.4) mg/dL Estim Creat Clear Calc 111.0 Estimated GFR > 60 Random Glucose 145 H D (60-115) mg/dL Calcium 9.6 (8.4-10.2) mg/dL Total Bilirubin 0.5 (0.0-1.0) mg/dL AST 27 (5-37) U/L ALT 40 (0-40) U/L Alkaline Phosphatase 64 (39-117) U/L Troponin I High Sens (<3.5-35.0) ng/L Total Protein 7.8 (6.5-8.0) g/dL Albumin 4.8 (3.5-5.0) g/dL Influenza Type A (PCR) NEGATIVE (Negative) Influenza Type B (PCR) NEGATIVE (Negative) RSV RNA Qual (PCR) NEGATIVE (Negative) SARS-CoV-2 RNA (RT-PCR) NEGATIVE (Negative) 04/29/22 Range/Units 17:34 WBC (4.8-10.8) X10*3/uL RBC (4.60-5.80) X10*6/uL Hgb (14.0-18.0) g/dl Hct (42.0-52.0) % MCV (80.0-98.0) fL MCH (27.0-33.0) pg MCHC (31.0-36.0) g/dl RDW (11.0-16.0) % Plt Count (160-400) X10*3/uL MPV (9.4-12.4) fL Immature Gran % (Auto) (0.0-0.4) % Neut % (Auto) (45-73) % Lymph % (Auto) (20-40) % [place] % (Auto) (2-11) % Eos % (Auto) (0-4) % Baso % (Auto) (0-2) % Lymph # (Auto) (1.2-4.9) X10*3/uL [place] # (Auto) (0.1-1.2) X10*3/uL Eos # (Auto) (0.0-0.4) X10*3/uL Baso # (Auto) (0.0-0.2) X10*3/uL Abs Immat Gran (auto) (0.00-0.03) X10*3/uL Absolute Neuts (auto) (2.0-8.3) x10*3/uL Absolute Nucleated RBC (0.0-0.012) X10*3/uL Nucleated RBC % (auto) (0.0-0.2) /100WBC Sodium (135-145) mmol/L Potassium (3.3-5.1) mmol/L Chloride (96-108) mmol/L Carbon Dioxide (22-29) mmol/L Anion Gap (12-20) BUN (9-16) mg/dL Creatinine (0.5-1.4) mg/dL Estim Creat Clear Calc Estimated GFR Random Glucose (60-115) mg/dL Calcium (8.4-10.2) mg/dL Total Bilirubin (0.0-1.0) mg/dL AST (5-37) U/L ALT (0-40) U/L Alkaline Phosphatase (39-117) U/L Troponin I High Sens < 3.5 (<3.5-35.0) ng/L Total Protein (6.5-8.0) g/dL Albumin (3.5-5.0) g/dL Influenza Type A (PCR) (Negative) Influenza Type B (PCR) (Negative) RSV RNA Qual (PCR) (Negative) SARS-CoV-2 RNA (RT-PCR) (Negative) Discharge Plan Discharge Clinical Impression: Acute asthmatic bronchitis Patient Disposition: Home, Self-Care Instructions: Acute Bronchitis (ED) Additional Instructions: Continue to use your inhaler/nebulizing treatment Antibiotic prednisone and cough drops as prescribed Follow with PCP if not better Prescriptions: New benzonatate 200 mg capsule 200 mg PO TID PRN (Reason: cough) Qty: 30 0RF prednisone 20 mg tablet 40 mg PO DAILY Qty: 10 0RF albuterol sulfate [ProAir HFA] 90 mcg/actuation HFA aerosol inhaler 2 puff inhalation Q4-6H PRN (Reason: shortness of breath or wheezing) Qty: 8.5 0RF doxycycline hyclate 100 mg tablet 100 mg PO BID Qty: 20 0RF No Action enalapril maleate 20 mg tablet 20 mg PO DAILY Qty: 90 1RF aspirin 81 mg tablet,delayed release (DR/EC) 81 mg PO DAILY Qty: 90 0RF metformin 500 mg tablet 250 mg PO DAILY 30 Days Qty: 15 3RF amlodipine 10 mg tablet 10 mg PO DAILY 90 Days Qty: 90 1RF rosuvastatin 20 mg tablet 20 mg PO BEDTIME Qty: 90 0RF albuterol sulfate 90 mcg/actuation HFA aerosol inhaler 2 puff PO Q6H PRN (Reason: Wheezing) albuterol sulfate 1.25 mg/3 mL solution for nebulization 1.25 mg inhalation QID PRN (Reason: shortness of breath or wheezing) Qty: 75 0RF Rx Instructions: diagnosis code acute asthma exacerbation albuterol sulfate [Ventolin HFA] 90 mcg/actuation HFA aerosol inhaler 2 puff inhalation Q6H PRN (Reason: shortness of breath or wheezing) Qty: 6.7 0RF Trelegy Ellipta 200-62.5-25 mcg blister with device 1 inh inhalation DAILY 30 Days Qty: 60 12RF (DME) blood pressure test kit-large Kit See Rx Instructions .Route Qty: 1 0RF Rx Instructions: As directed fluticasone furoate-vilanterol [Breo Ellipta] 100-25 mcg/dose blister with device 1 ea inhalation BID omeprazole 20 mg capsule,delayed release(DR/EC) 20 mg PO DAILY 28 Days Qty: 28 0RF
--- NOTE | 2022-04-29 17:12 | ECG_ITS ---
Test Reason : SOB Blood Pressure : / mmHG Vent. Rate : 088 BPM Atrial Rate : 088 BPM P-R Int : 140 ms QRS Dur : 084 ms QT Int : 344 ms P-R-T Axes : 073 056 035 degrees QTc Int : 416 ms Normal sinus rhythm Normal ECG When compared with ECG of 02-DEC-2021 08:13, No significant change was found Referred By: Shreya Wood Electronically Signed By:YOLI BERRIOS MD
[2022-04-29 17:41] LABS: MANUAL DIFF FLAG NO
[2022-04-29 17:54] LABS: Basophils Percent Auto 0.4 % (0-2); Hematocrit 49.9 % (42.0-52.0); Hemoglobin 17.1 g/dl (14.0-18.0); Imm Gran Abs Auto 0.08 X10*3/uL (0.00-0.03); Imm Gran Pct Auto 1.5 % (0.0-0.4); Lymphocytes Absolute Auto 0.7 X10*3/uL (1.2-4.9); Lymphocytes Percent Auto 12.8 % (20-40); Mean Corpuscular HGB Conc 34.3 g/dl (31.0-36.0); Mean Corpuscular Hemoglobin 30.6 pg (27.0-33.0); Mean Corpuscular Volume 89.3 fL (80.0-98.0); Mean Platelet Volume 10.2 fL (9.4-12.4); Monocytes Absolute Auto 0.3 X10*3/uL (0.1-1.2); Monocytes Percent Auto 5.3 % (2-11); Neutrophils Absolute Auto 4.4 x10*3/uL (2.0-8.3); Platelet Count 245 X10*3/uL (160-400); Red Blood Count 5.59 X10*6/uL (4.60-5.80); Red Cell Distribution Width 15.1 % (11.0-16.0); White Blood Count 5.5 X10*3/uL (4.8-10.8)
[2022-04-29 18:06] LABS: Alanine Aminotransferase 40 U/L (0-40); Albumin Level 4.8 g/dL (3.5-5.0); Alkaline Phosphatase 64 U/L (39-117); Anion Gap 16 (12-20); Aspartate Amino Transferase 27 U/L (5-37); Bilirubin Total 0.5 mg/dL (0.0-1.0); Blood Urea Nitrogen 13 mg/dL (9-16); Calcium 9.6 mg/dL (8.4-10.2); Carbon Dioxide 26 mmol/L (22-29); Chloride 104 mmol/L (96-108); Estimated Glomerular Filt Rate > 60; Glucose Random 145 mg/dL (60-115); Potassium 4.6 mmol/L (3.3-5.1); Sodium 141 mmol/L (135-145); Total Protein 7.8 g/dL (6.5-8.0)
[2022-04-29 18:09] LABS: Troponin-I High Sensitivity < 3.5 ng/L (<3.5-35.0)
[2022-04-29 18:27] LABS: Influenza A PCR NEGATIVE (Negative); Influenza B PCR NEGATIVE (Negative); Resp Syncy Virus RNA Qual PCR NEGATIVE (Negative); SARS COV2 PCR INHOUSE NEGATIVE (Negative)
--- NOTE | 2022-04-29 23:01 | PC.NURSE ---
Called respiratory requesting treatment be administered.
[2022-04-29 23:03] VITALS: BP 152/94; PULSE 84; RESP 20; TEMP 36.9; O2SAT 98
--- NOTE | 2022-04-29 23:29 | ED.URI ---
HPI - URI/Sore Throat General Chief Complaint: Asthma Stated Complaint: Asthma Time Seen by Provider: 04/29/22 22:56 Source: patient Mode of arrival: ambulatory Limitations: no limitations History of Present Illness HPI Narrative: Patient with history of asthma been coughing for last 4 days with nasal congestion no fever chills nobody else sick at home no chest pain or palpitation no leg edema cough is mostly dry with occasional mucopurulent phlegm Related Data Home Medications Medication Instructions Recorded Confirmed albuterol sulfate 90 mcg/actuation 2 puff PO Q6H PRN Wheezing 06/23/20 12/24/21 aerosol inhaler fluticasone furoate 100 1 ea inhalation BID 03/10/22 mcg-vilanterol 25 mcg/dose inhalation powder (Breo Ellipta) Previous Rx's Medication Instructions Recorded blood pressure test kit-large #1 ea 10/02/21 albuterol sulfate 1.25 mg/3 mL 1.25 mg (3 mL) inhalation QID PRN 12/04/21 solution for nebulization shortness of breath or wheezing #75 mL albuterol sulfate 90 mcg/actuation 2 puff inhalation Q6H PRN 12/04/21 aerosol inhaler (Ventolin HFA) shortness of breath or wheezing #6.7 grams enalapril maleate 20 mg tablet 20 mg PO DAILY #90 tabs 12/09/21 fluticasone fur. 200 mcg-umeclid 1 inh inhalation DAILY 30 days #60 12/24/21 62.5 mcg-vilant 25 mcg ea inhalat.powder (Trelegy Ellipta) aspirin 81 mg tablet,delayed 81 mg PO DAILY #90 tabs 01/07/22 release metformin 500 mg tablet 250 mg PO DAILY 30 days #15 tabs 02/02/22 omeprazole 20 mg capsule,delayed 20 mg PO DAILY 4 weeks #28 caps 03/10/22 release amlodipine 10 mg tablet 10 mg PO DAILY 90 days #90 tabs 03/12/22 rosuvastatin 20 mg tablet 20 mg PO BEDTIME #90 tabs 04/09/22 albuterol sulfate 2.5 mg/3 mL 2.5 mg (3 mL) inhalation Q4-6H PRN 04/30/22 (0.083 %) solution for nebulization shortness of breath or wheezing #90 mL albuterol sulfate 90 mcg/actuation 2 puff inhalation Q4-6H PRN 04/30/22 aerosol inhaler (ProAir HFA) shortness of breath or wheezing #8.5 grams benzonatate 200 mg capsule 200 mg PO TID PRN cough #30 caps 04/30/22 doxycycline hyclate 100 mg tablet 100 mg PO BID #20 tabs 04/30/22 prednisone 20 mg tablet 40 mg PO DAILY #10 tabs 04/30/22 Allergies Allergy/AdvReac Type Severity Reaction Status Date / Time No Known Allergies Allergy Verified 04/29/22 17:16 Review of Systems Review of Systems: Yes all other systems are reviewed and are negative [facility] Past Medical History Medical History Benign essential hypertension Bronchial asthma Chronic cough Coronary artery disease Degenerative disc disease Diabetes mellitus Hiatal hernia Hiatal hernia HTN (hypertension) Lung fibrosis Obesity (BMI 30-39.9) LUIS (obstructive sleep apnea) Pure hypercholesterolemia Surgical History Hx of colonoscopy S/P arterial stent Social History Social History Housing: Apartment Alcohol intake: never Patient Tobacco Use Status: Never used Tobacco e-Cigarette/Vaping Use: Never Used Substance Use Type: Marijuana Advance Directives: No Advance Directives Information Provided: No service: No Current occupational status: disabled Cognitive needs: No Hearing needs: No Vision needs: Yes Physical Exam Vital Signs: Vital Signs: Last Vital Signs Temp 98.1 F 04/30/22 00:22 Pulse 85 04/30/22 00:22 Resp 16 04/30/22 00:22 BP 135/86 04/30/22 00:22 Pulse Ox 97 04/30/22 00:22 O2 Del Method 04/30/22 00:22 BMI result Body Mass Index 35.0 Appearance: Alert. Oriented X3. No acute distress. Eyes: PERRLA, No Nystagmus ENT: Pharynx normal. Oral Mucosa moist inflamed nasal turbinate with clear discharge Neck: Normal inspection. Neck supple. CVS: Normal heart rate and rhythm. Pulses normal. Respiratory: No respiratory distress. Equal air entry bilateral, bilateral wheezing Abdomen: Soft and nontender. Bowel sounds are present, no mass palpable, no CVA tenderness Skin: Skin warm and dry. Normal skin color. Normal skin turgor. Extremities: No lower extremity edema. No calf tenderness Neuro: Oriented X 3. No motor deficit. Medications Administered Discontinued Medications Generic Name Dose Route Start Last Admin Trade Name Todd PRN Reason Stop Dose Admin Albuterol Sulfate 2.5 mg/ 0 mg 04/29/22 23:22 04/29/22 23:34 Albuterol/Ipratropium 3 ml INHALE 04/29/22 23:23 5 each ONCE ONE Administration Doxycycline Monohydrate 100 mg 04/29/22 23:23 04/30/22 00:09 Doxycycline Monohydrate 100 Mg Capsule PO 04/29/22 23:24 100 mg ONCE ONE Administration Guaifenesin/Codeine Phosphate 10 ml 04/29/22 23:23 04/30/22 00:08 Guaifen/Codeine Sf 200/20/10ml 10 Ml Liquid PO 04/29/22 23:24 10 ml ONCE ONE Administration Prednisone 60 mg 04/29/22 23:23 04/30/22 00:09 Prednisone 20 Mg Tablet PO 04/29/22 23:24 60 mg ONCE ONE Administration Medical Decision Making Lab Data MDM Lab Attestation statement: I reviewed the patient's lab results. Result Diagrams: 04/29/22 17:34 04/29/22 17:34 Labs: Lab Results 04/29/22 04/29/22 04/29/22 Range/Units 17:34 17:34 17:34 WBC 5.5 (4.8-10.8) X10*3/uL RBC 5.59 (4.60-5.80) X10*6/uL Hgb 17.1 (14.0-18.0) g/dl Hct 49.9 (42.0-52.0) % MCV 89.3 (80.0-98.0) fL MCH 30.6 (27.0-33.0) pg MCHC 34.3 (31.0-36.0) g/dl RDW 15.1 (11.0-16.0) % Plt Count 245 (160-400) X10*3/uL MPV 10.2 (9.4-12.4) fL Immature Gran % (Auto) 1.5 H (0.0-0.4) % Neut % (Auto) 80.0 H (45-73) % Lymph % (Auto) 12.8 L (20-40) % [place] % (Auto) 5.3 (2-11) % Eos % (Auto) 0.0 (0-4) % Baso % (Auto) 0.4 (0-2) % Lymph # (Auto) 0.7 L (1.2-4.9) X10*3/uL [place] # (Auto) 0.3 (0.1-1.2) X10*3/uL Eos # (Auto) 0.0 (0.0-0.4) X10*3/uL Baso # (Auto) 0.0 (0.0-0.2) X10*3/uL Abs Immat Gran (auto) 0.08 H (0.00-0.03) X10*3/uL Absolute Neuts (auto) 4.4 (2.0-8.3) x10*3/uL Absolute Nucleated RBC 0.000 (0.0-0.012) X10*3/uL Nucleated RBC % (auto) 0.0 (0.0-0.2) /100WBC Sodium 141 (135-145) mmol/L Potassium 4.6 (3.3-5.1) mmol/L Chloride 104 (96-108) mmol/L Carbon Dioxide 26 (22-29) mmol/L Anion Gap 16 (12-20) BUN 13 (9-16) mg/dL Creatinine 0.97 (0.5-1.4) mg/dL Estim Creat Clear Calc 111.0 Estimated GFR > 60 Random Glucose 145 H D (60-115) mg/dL Calcium 9.6 (8.4-10.2) mg/dL Total Bilirubin 0.5 (0.0-1.0) mg/dL AST 27 (5-37) U/L ALT 40 (0-40) U/L Alkaline Phosphatase 64 (39-117) U/L Troponin I High Sens (<3.5-35.0) ng/L Total Protein 7.8 (6.5-8.0) g/dL Albumin 4.8 (3.5-5.0) g/dL Influenza Type A (PCR) NEGATIVE (Negative) Influenza Type B (PCR) NEGATIVE (Negative) RSV RNA Qual (PCR) NEGATIVE (Negative) SARS-CoV-2 RNA (RT-PCR) NEGATIVE (Negative) 04/29/22 Range/Units 17:34 WBC (4.8-10.8) X10*3/uL RBC (4.60-5.80) X10*6/uL Hgb (14.0-18.0) g/dl Hct (42.0-52.0) % MCV (80.0-98.0) fL MCH (27.0-33.0) pg MCHC (31.0-36.0) g/dl RDW (11.0-16.0) % Plt Count (160-400) X10*3/uL MPV (9.4-12.4) fL Immature Gran % (Auto) (0.0-0.4) % Neut % (Auto) (45-73) % Lymph % (Auto) (20-40) % [place] % (Auto) (2-11) % Eos % (Auto) (0-4) % Baso % (Auto) (0-2) % Lymph # (Auto) (1.2-4.9) X10*3/uL [place] # (Auto) (0.1-1.2) X10*3/uL Eos # (Auto) (0.0-0.4) X10*3/uL Baso # (Auto) (0.0-0.2) X10*3/uL Abs Immat Gran (auto) (0.00-0.03) X10*3/uL Absolute Neuts (auto) (2.0-8.3) x10*3/uL Absolute Nucleated RBC (0.0-0.012) X10*3/uL Nucleated RBC % (auto) (0.0-0.2) /100WBC Sodium (135-145) mmol/L Potassium (3.3-5.1) mmol/L Chloride (96-108) mmol/L Carbon Dioxide (22-29) mmol/L Anion Gap (12-20) BUN (9-16) mg/dL Creatinine (0.5-1.4) mg/dL Estim Creat Clear Calc Estimated GFR Random Glucose (60-115) mg/dL Calcium (8.4-10.2) mg/dL Total Bilirubin (0.0-1.0) mg/dL AST (5-37) U/L ALT (0-40) U/L Alkaline Phosphatase (39-117) U/L Troponin I High Sens < 3.5 (<3.5-35.0) ng/L Total Protein (6.5-8.0) g/dL Albumin (3.5-5.0) g/dL Influenza Type A (PCR) (Negative) Influenza Type B (PCR) (Negative) RSV RNA Qual (PCR) (Negative) SARS-CoV-2 RNA (RT-PCR) (Negative) Discharge Plan Discharge Clinical Impression: Acute asthmatic bronchitis Patient Disposition: Home, Self-Care Instructions: Acute Bronchitis (ED) Additional Instructions: Continue to use your inhaler/nebulizing treatment Antibiotic prednisone and cough drops as prescribed Follow with PCP if not better Prescriptions: New benzonatate 200 mg capsule 200 mg PO TID PRN (Reason: cough) Qty: 30 0RF prednisone 20 mg tablet 40 mg PO DAILY Qty: 10 0RF albuterol sulfate [ProAir HFA] 90 mcg/actuation HFA aerosol inhaler 2 puff inhalation Q4-6H PRN (Reason: shortness of breath or wheezing) Qty: 8.5 0RF doxycycline hyclate 100 mg tablet 100 mg PO BID Qty: 20 0RF albuterol sulfate 2.5 mg /3 mL (0.083 %) solution for nebulization 2.5 mg inhalation Q4-6H PRN (Reason: shortness of breath or wheezing) Qty: 90 0RF No Action enalapril maleate 20 mg tablet 20 mg PO DAILY Qty: 90 1RF aspirin 81 mg tablet,delayed release (DR/EC) 81 mg PO DAILY Qty: 90 0RF metformin 500 mg tablet 250 mg PO DAILY 30 Days Qty: 15 3RF amlodipine 10 mg tablet 10 mg PO DAILY 90 Days Qty: 90 1RF rosuvastatin 20 mg tablet 20 mg PO BEDTIME Qty: 90 0RF albuterol sulfate 90 mcg/actuation HFA aerosol inhaler 2 puff PO Q6H PRN (Reason: Wheezing) albuterol sulfate 1.25 mg/3 mL solution for nebulization 1.25 mg inhalation QID PRN (Reason: shortness of breath or wheezing) Qty: 75 0RF Rx Instructions: diagnosis code acute asthma exacerbation albuterol sulfate [Ventolin HFA] 90 mcg/actuation HFA aerosol inhaler 2 puff inhalation Q6H PRN (Reason: shortness of breath or wheezing) Qty: 6.7 0RF Trelegy Ellipta 200-62.5-25 mcg blister with device 1 inh inhalation DAILY 30 Days Qty: 60 12RF (DME) blood pressure test kit-large Kit See Rx Instructions .Route Qty: 1 0RF Rx Instructions: As directed fluticasone furoate-vilanterol [Breo Ellipta] 100-25 mcg/dose blister with device 1 ea inhalation BID omeprazole 20 mg capsule,delayed release(DR/EC) 20 mg PO DAILY 28 Days Qty: 28 0RF
[2022-04-29] MEDS: Albuterol Sulfate 2.5 MG, Albuterol/Iprat 2.5/0.5MG 3 ML 3 ML INHALE (23:34)
[2022-04-29 23:36] VITALS: PULSE 94; RESP 20
[2022-04-30] MEDS: guaiFEN/Codeine SF 200/20/10ML 10 ML LIQUID PO (00:08)
[2022-04-30] MEDS: Doxycycline Monohydrate 100 MG CAPSULE PO (00:09)
[2022-04-30] MEDS: predniSONE 20 MG TABLET 60 MG PO (00:09)
[2022-04-30 00:22] VITALS: BP 135/86; PULSE 85; RESP 16; TEMP 36.7; O2SAT 97
== END 2022-04-30 00:53 | disposition home or self-care (01) ==
PROVIDERS: Physician Assistant; Emergency Provider Internal Medicine; PCP Internal Medicine
DX: J45.909 Unspecified asthma, uncomplicated (principal); R05.9 Cough, unspecified; Z20.822 Contact with and (suspected) exposure to COVID-19; Z79.899 Other long term (current) drug therapy
CPT/HCPCS: 0241U; 36415; 71045; 80053; 84484; 85025; 93005; 94640; 99284

== ENCOUNTER → 2022-05-28 13:44 | Outpatient (BNVA) | payer MEDICARE, MEDICAID, SELFPAY | PROVIDERS: PCP Internal Medicine; Visit Provider Urology | DX: R97.20 Elevated prostate specific antigen [PSA] (principal); N40.0 Benign prostatic hyperplasia without lower urinary tract symptoms | CPT/HCPCS: 51798; 99202 ==

== ENCOUNTER 2022-06-13 10:26 | Outpatient (REF) | payer MEDICARE, MEDICAID, SELFPAY ==
[2022-06-13 12:20] LABS: Alanine Aminotransferase 26 U/L (0-40); Albumin Level 4.1 g/dL (3.5-5.0); Alkaline Phosphatase 60 U/L (39-117); Anion Gap 13 (12-20); Aspartate Amino Transferase 20 U/L (5-37); Blood Urea Nitrogen 13 mg/dL (9-16); Calcium 8.9 mg/dL (8.4-10.2); Carbon Dioxide 25 mmol/L (22-29); Chloride 107 mmol/L (96-108); Cholesterol 161 mg/dL; Estimated Glomerular Filt Rate > 60; Glucose Fasting 109 mg/dL (60-99); HDL Cholesterol 69 mg/dL; LDL Cholesterol Calculated 83 mg/dl; Potassium 4.4 mmol/L (3.3-5.1); Sodium 141 mmol/L (135-145); TSH reflex Free T4 1.31 uIU/mL (0.32-4.0); Total Protein 6.5 g/dL (6.5-8.0); Triglycerides 46 mg/dL
[2022-06-13 13:52] LABS: Creatinine Urine 86.64 mg/dL
== END 2022-06-13 10:27 | disposition home or self-care (01) ==
LOC: HO.LAB 10:26
PROVIDERS: Absent Provider Physician Assistant; PCP Internal Medicine; Visit Provider Urology
DX: Z12.5 Encounter for screening for malignant neoplasm of prostate (principal); E66.01 Morbid (severe) obesity due to excess calories; Z68.37 Body mass index [BMI] 37.0-37.9, adult; N40.0 Benign prostatic hyperplasia without lower urinary tract symptoms; E78.2 Mixed hyperlipidemia; I10 Essential (primary) hypertension; E11.65 Type 2 diabetes mellitus with hyperglycemia
CPT/HCPCS: 36415; 80053; 80061; 82043; 84153; 84443

== ENCOUNTER 2022-06-18 11:56 | Outpatient (REF) | payer MEDICARE, MEDICAID, SELFPAY ==
--- NOTE | ~2022-06-18 | XR_ITS ---
EXAMINATION: XR HAND, RIGHT CLINICAL INFORMATION: Pain. COMPARISON: None TECHNIQUE: PA, lateral, and oblique views of the right hand. FINDINGS: Bony alignment and mineralization are normal. There is a neutral ulnar variance. There is mild osteoarthritic change of the interphalangeal joint of the thumb. There is moderate osteoarthritic change of the second and third distal clinical joints and of the third and fourth proximal interphalangeal joints. There is mild to moderate osteoarthritic change of the first through fifth metacarpophalangeal joints. The proximal and distal carpal rows are intact. No fracture or dislocation is seen. There is no abnormal bone erosion. No focal soft tissue swelling, gas or foreign body is seen. XR/XR hand RT min 3V IMPRESSION: There is are multi-focal osteoarthritic changes of the right hand and wrist. No fracture or dislocation is seen. There is no abnormal bony erosive change. EXAMINATION: XR HAND, LEFT CLINICAL INFORMATION: Pain. COMPARISON: None TECHNIQUE: PA, lateral, and oblique views of the left hand. FINDINGS: Bony alignment and mineralization are normal. There is a slight ulnar minus variance. There is minimal osteoarthritic change of the interphalangeal joint of the thumb. There is mild osteoarthritic change of the second and third distal interphalangeal nodes. There is osteoarthritic change of the second through fourth proximal interphalangeal joints, most pronounced of the third proximal interphalangeal joint, where it is moderately severe. There is mild osteoarthritic change of the first through fifth metacarpophalangeal joints. There is moderate osteoarthritic change of the first carpometacarpal joint. The proximal and distal carpal rows are intact. No fracture or dislocation is seen. No abnormal bone erosion is seen. There is no focal soft tissue swelling, gas or foreign body. IMPRESSION: There is multi-focal osteoarthritic change of the left hand and wrist, as detailed. No fracture or dislocation is seen. There is no abnormal bone erosion.
--- NOTE | ~2022-06-18 | XR_ITS ---
EXAMINATION: XR KNEE, LEFT CLINICAL INFORMATION: Pain. COMPARISON: None TECHNIQUE: AP, lateral, tunnel, and sunrise views of the left knee. FINDINGS: Bony alignment and mineralization are normal. The lateral, medial and patellofemoral joint space compartments are well-maintained. There is very mild tricompartment peripheral osteophyte formation. No fracture, dislocation or joint effusion is seen. There is no foreign body. There are femoral and popliteal atherosclerotic calcifications. XR/XR knee LT 4V IMPRESSION: 1. There is very mild tricompartment osteoarthritic change of the left knee. 2. No left knee fracture, dislocation or joint effusion is seen.
--- NOTE | ~2022-06-18 | US_ITS ---
EXAMINATION: US PELVIS LIMITED (BLADDER) CLINICAL INFORMATION: Poor urinary stream. COMPARISON: None TECHNIQUE: Real-time imaging of the bladder. FINDINGS: BLADDER: Well distended and normal. Bilateral ureteral jets are demonstrated. Prevoid bladder volume is 117.06 mL. Postvoid bladder volume is 7.33 mL. US/US bladder IMPRESSION: 25 mL prostate. The bladder is unremarkable.
== END 2022-06-18 11:57 | disposition home or self-care (01) ==
LOC: HO.US 11:56
PROVIDERS: Visit Provider Urology
DX: M25.562 Pain in left knee (principal); M25.541 Pain in joints of right hand; M25.542 Pain in joints of left hand; R39.12 Poor urinary stream; N40.0 Benign prostatic hyperplasia without lower urinary tract symptoms
CPT/HCPCS: 73130; 73564; 76857

== ENCOUNTER → 2022-06-24 13:45 | Outpatient (BNVA) | payer MEDICARE, MEDICAID, SELFPAY | PROVIDERS: PCP Internal Medicine; Referring Provider Physician Assistant; Visit Provider Internal Medicine Cardiovascular Disease | DX: I25.10 Atherosclerotic heart disease of native coronary artery without angina pectoris (principal) | CPT/HCPCS: 99202 ==

== ENCOUNTER 2022-06-25 11:50 | Day surgery (SDC) | payer MEDICARE, MEDICAID, SELFPAY ==
--- NOTE | 2022-05-14 12:06 | HO.ANESPROP2 ---
HPI - Anesthesia Eval Consult details Narrative: 56yo M for Upper Endoscopy [facility] [place] with asthma exac - d/c home with rx [facility] Active Problems Active Problems: All Active Problems (Updated 05/01/22 @ 00:02 by Tisha Friedman) GERD (gastroesophageal reflux disease) (Acute) Hiatal hernia (Acute) Hiatal hernia (Acute) Obesity (BMI 30-39.9) (Acute) Benign essential hypertension (Acute) Pure hypercholesterolemia (Acute) Diabetes mellitus (Acute) Coronary artery disease (Acute) BPH (benign prostatic hyperplasia) (Acute) LUIS (obstructive sleep apnea) (Acute) Chronic cough (Acute) Degenerative disc disease (Acute) Hand arthritis (Acute) CAD (coronary artery disease) (Acute) Enlarged prostate (Acute) DMII (diabetes mellitus, type 2) (Acute) Obese (Acute) Pulmonary fibrosis (Acute) HLD (hyperlipidemia) (Acute) HTN (hypertension) (Acute) Asthma (Acute) Acute respiratory failure with hypoxia (Acute) Past Medical History Medical History Benign essential hypertension Bronchial asthma Chronic cough Coronary artery disease Degenerative disc disease Diabetes mellitus Hiatal hernia Hiatal hernia HTN (hypertension) Lung fibrosis Obesity (BMI 30-39.9) LUIS (obstructive sleep apnea) Pure hypercholesterolemia Surgical History Surgical History Hx of colonoscopy S/P arterial stent Social History Social History Housing: Apartment Alcohol intake: never Patient Tobacco Use Status: Never used Tobacco e-Cigarette/Vaping Use: Never Used Substance Use Type: Marijuana service: No Current occupational status: disabled Cognitive needs: No Hearing needs: No Vision needs: Yes Meds Allergies Allergy/AdvReac Type Severity Reaction Status Date / Time No Known Allergies Allergy Verified 04/29/22 17:16 Home Medications Medication Instructions Recorded Confirmed Last Taken Type albuterol sulfate 90 mcg/actuation 2 puff PO Q6H PRN Wheezing 06/23/20 12/24/21 Unknown History aerosol inhaler fluticasone furoate 100 1 ea inhalation BID 03/10/22 Unknown History mcg-vilanterol 25 mcg/dose inhalation powder (Breo Ellipta) Exam Exam Date and Time: May 14, 2022 1206 Pertinent Lab Results Pertinent Lab Results: Laboratory Tests 04/29/22 04/29/22 17:34 17:34 WBC 5.5 Hgb 17.1 Hct 49.9 Plt Count 245 Sodium 141 Potassium 4.6 Chloride 104 Carbon Dioxide 26 BUN 13 Creatinine 0.97 Narrative Narrative: EKG 04/2022 Vent. Rate : 088 BPM ? ? Atrial Rate : 088 BPM ?? P-R Int : 140 ms? QRS Dur : 084 ms ? ? QT Int : 344 ms ? ? ? P-R-T Axes : 073 056 035 degrees ?? QTc Int : 416 ms ? Normal sinus rhythm Normal ECG When compared with ECG of 02-DEC-2021 08:13, No significant change was found
--- NOTE | 2022-06-25 13:08 | MHC.SHP ---
Pre-Procedural Eval Section A Date of Service: 06/25/22 Section B Chief Complaint: GERD, hiatal hernia Details of Present Illness: Medical History Benign essential hypertension Bronchial asthma Chronic cough Coronary artery disease Degenerative disc disease Diabetes mellitus Hiatal hernia Hiatal hernia HTN (hypertension) Lung fibrosis Obesity (BMI 30-39.9) LUIS (obstructive sleep apnea) Pure hypercholesterolemia Surgical History Hx of colonoscopy S/P arterial stent Relevant Social History: Tobacco Use Present Medications: see Short Stay Collaborative assessment Medical History: Significant History (as above ) History of Previous Operations: Relevant previous surgery/procedure and date(s) (as above ) Allergies: Allergies Allergy/AdvReac Type Severity Reaction Status Date / Time No Known Allergies Allergy Verified 06/16/22 13:14 Review of Systems Review of Systems Comment: 10 point ROS negative except as above Exam Exam Comment: Gen appear: No acute distress, well nourished HEENT: no icterus Chest: No overt resp distress Abd: soft, nontender, nondistended Psych: Stable affect, answering questions appropriately Neuro: A/Ox3 noted to move all extremities spontaneously Ext: no peripheral edema Plan I have reviewed the history and physical and performed a pertinent physical examination on my patient. No changes have occurred unless specified. Time Spent With Patient Time: Total time managing care of this patient today ____ minutes.
[2022-06-25 13:46] VITALS: BMI 35.2
[2022-06-25 13:49] VITALS: BP 127/85; PULSE 79; RESP 18; TEMP 36.5; O2SAT 96
[2022-06-25 14:02] LABS: Glucose, Whole Blood 95 mg/dL (60-115)
[2022-06-25 14:19] VITALS: BMI 35.2
[2022-06-25] MEDS: Lactated Ringers 1,000 ML 50 ML IVCONT (14:23)
--- NOTE | 2022-06-25 15:44 | P.CONAN_ITS ---
HPI - Anesthesia Eval Consult details Narrative: richard [facility] Active Problems Active Problems: All Active Problems (Updated 06/16/22 @ 13:40 by Clayton Raza MD) Arthralgia of both hands (Acute) Left knee pain (Acute) Annual physical exam (Acute) Elevated PSA (Acute) GERD (gastroesophageal reflux disease) (Acute) Hiatal hernia (Acute) Hiatal hernia (Acute) Obesity (BMI 30-39.9) (Acute) Benign essential hypertension (Acute) Pure hypercholesterolemia (Acute) Diabetes mellitus (Acute) Coronary artery disease (Acute) BPH (benign prostatic hyperplasia) (Acute) LUIS (obstructive sleep apnea) (Acute) Chronic cough (Acute) Degenerative disc disease (Acute) Hand arthritis (Acute) CAD (coronary artery disease) (Acute) Enlarged prostate (Acute) DMII (diabetes mellitus, type 2) (Acute) Obese (Acute) Pulmonary fibrosis (Acute) HLD (hyperlipidemia) (Acute) HTN (hypertension) (Acute) Asthma (Acute) Acute respiratory failure with hypoxia (Acute) Past Medical History Medical History Benign essential hypertension Bronchial asthma Chronic cough Coronary artery disease Degenerative disc disease Diabetes mellitus Hiatal hernia Hiatal hernia HTN (hypertension) Lung fibrosis Obesity (BMI 30-39.9) LUIS (obstructive sleep apnea) Pure hypercholesterolemia Family History Family history of problems with anesthesia: No Surgical History Surgical History Hx of colonoscopy S/P arterial stent History of Problems with Anesthesia: No Social History Social History Housing: Apartment Alcohol intake: never Patient Tobacco Use Status: Never used Tobacco e-Cigarette/Vaping Use: Never Used Use of substances other than those prescribed or required for medical reasons: Yes Substance Use Type: Marijuana Substance Use Frequency: Daily Are you DNR?: No Advance Directives: No Advance Directives Information Provided: Yes service: No Current occupational status: disabled Cognitive needs: No Hearing needs: No Vision needs: Yes Meds Allergies Allergy/AdvReac Type Severity Reaction Status Date / Time No Known Allergies Allergy Verified 06/16/22 13:14 Active Medications: Current Medications Lactated Ringer's (Lr) 1,000 mls @ 50 mls/hr IVCONT .Q20H KELLI Last Admin: 06/25/22 14:23 Dose: 50 mls/hr Home Medications Medication Instructions Recorded Confirmed Last Taken Type albuterol sulfate 90 mcg/actuation 2 puff PO Q6H PRN Wheezing 06/23/20 06/25/22 Unknown History aerosol inhaler Exam Exam Date and Time: June 25, 2022 1544 Height,Weight and Vital Signs: Height 6 ft Weight 117.934 kg Last Vital Signs Temp 97.7 F 06/25/22 13:49 Pulse 79 06/25/22 13:49 Resp 18 06/25/22 13:49 BP 127/85 06/25/22 13:49 Pulse Ox 96 06/25/22 13:49 O2 Del Method 06/25/22 13:49 Pertinent Lab Results Pertinent Lab Results: Laboratory Tests 06/25/22 13:59 POC Glucose 95 Airway Mallampati Class: II TM Dist: >3cm Neck ROM: Limited Loose/Missing/Broken Teeth: No Heart: rrr Lungs: cta Assessment and Plan Assessment Anesthesia Assessment: Anesthesia Plan Discussed and Chart Reviewed Final Anesthetic Review Family History of Problems with Anesthesia: No History of Problems with Anesthesia: No NPO: Yes ASA Class: III Final Preanesthetic Review: No Changes in Pt Med Stat, Meds/Allgs Chart Reviewed, Consent Obtained/Reviewed and Anes Risks/Benef Reviewed Patient Risk: Intermediate Procedure Risk: Intermediate Anesthetic Plan Anesthetic Plan: MAC: and Agree w/ Assess. and Plan Disposition: Standard PACU
--- NOTE | 2022-06-25 16:24 | P.OP_ITS ---
Operative Note Operative Note Date of Service: 06/25/22 Narrative: Procedure: Esophagogastroduodenoscopy Endoscopist: Grisel Deng MD Indication: GERD, hiatal hernia Anesthesia Provider: Dr Rufino Horne Anesthesia Type: MAC ?? EGD Procedure:?? The procedure, indications, preparation and potential complications were rev iewed with the patient, who indicated understanding and gave written informed consent to proceed. A physical exam was performed. The endoscope was introduced through the mouth, and advanced to the second part of duodenum. The mucosa was carefully examined on slow withdrawal of the endoscope. The patient tolerated the procedure well. There were no immediate complications.? ? EGD Findings:? * Esophagus:? Normal mucosa noted in the entire esophagus. The Z line was at 38 cm. * Stomach:? Congestion and erythema of the mucosa in mosaic pattern suspicious for portal hypertensive gastropathy. Random cold forceps biopsies were obtained. Numerous erosions were noted in the antrum with a single 1.2 cm clean based ulcer at 9 o clock to the pyloric channel. Cold forceps biopsies were obtained from the edge of the ulcer. * Duodenum:? Erosions and erythema were noted in duodenal bulb. Normal mucosa was noted in the remaining of the examined duodenum. Biopsies were taken from duodenal bulb and second portion of the duodenum to rule out celiac sprue. ? EGD Impressions:? * Normal esophagus * Gastritis (biopsy) * Gastric ulcer (biopsy) * ? Portal hypertensive gastropathy * Peptic duodenitis (biopsy) ?? Recommendations:?? * Follow biopsy results. Our office will call or send a letter with results within 7-10 days. * Start PPI therapy. * If H pylori +, patient will be prescribed eradication therapy followed by test of cure. * Avoid NSAIDs. * Ultrasound abd ordered to eval liver Above has been reviewed with the patient. Relevant educational hand outs were provided at discharge.
[2022-06-25 16:25] VITALS: BP 102/64; PULSE 93; RESP 16; TEMP 36.6; O2SAT 95
[2022-06-25 16:40] VITALS: BP 99/68; PULSE 73; RESP 16; O2SAT 96
[2022-06-25 16:55] VITALS: BP 129/73; PULSE 78; RESP 18; O2SAT 97
[2022-06-25 17:10] VITALS: BP 122/65; PULSE 84; RESP 16; TEMP 36.4; O2SAT 98
[2022-06-25 17:25] VITALS: BP 127/74; PULSE 73; RESP 15; TEMP 36.4; O2SAT 98
== END 2022-06-25 17:43 | disposition home or self-care (01) ==
PROVIDERS: PCP Internal Medicine; Visit Provider Internal Medicine
PROC: 0DJ08ZZ Inspection of Upper Intestinal Tract, Via Natural or Artificial Opening Endoscopic (ICD-10-PCS; CPT 43235; principal; 2022-06-25 13:50)
DX: K21.9 Gastro-esophageal reflux disease without esophagitis (principal); K29.50 Unspecified chronic gastritis without bleeding; B96.81 Helicobacter pylori [H. pylori] as the cause of diseases classified elsewhere; K29.80 Duodenitis without bleeding; K25.9 Gastric ulcer, unspecified as acute or chronic, without hemorrhage or perforation; K44.9 Diaphragmatic hernia without obstruction or gangrene; R05.3 Chronic cough; J45.909 Unspecified asthma, uncomplicated; J84.10 Pulmonary fibrosis, unspecified; G47.33 Obstructive sleep apnea (adult) (pediatric); I10 Essential (primary) hypertension; E78.00 Pure hypercholesterolemia, unspecified; I25.10 Atherosclerotic heart disease of native coronary artery without angina pectoris; Z98.61 Coronary angioplasty status; E11.9 Type 2 diabetes mellitus without complications; Z79.84 Long term (current) use of oral hypoglycemic drugs; Z79.82 Long term (current) use of aspirin; Z79.51 Long term (current) use of inhaled steroids; Z79.899 Other long term (current) drug therapy
CPT/HCPCS: 43239; 82947; 88305; 88342

== ENCOUNTER → 2022-07-08 09:53 | Outpatient (REF) | payer MEDICARE, MEDICAID, SELFPAY ==
--- NOTE | 2022-07-08 09:55 | CA_ITS ---
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 The calculated ejection fraction is 58% by biplane method. - There is mild calcification of the aortic valve. - No obvious valvular pathology seen on this study. Findings Left Ventricle Normal left ventricular cavity size. There is normal left ventricular wall thickness. The left ventricular systolic function is normal. The calculated ejection fraction is 58% by biplane method. There is no evidence of regional wall motion abnormalities. Diastolic function is normal for age. LV peak GLS -17.3%. Right Ventricle Normal right ventricular cavity size and systolic function. Atria Both atria are normal in size. Aortic Valve There is a normal trileaflet aortic valve. There is mild calcification of the aortic valve. There is no aortic valve stenosis. There is no aortic valve regurgitation. Mitral Valve The mitral valve appears normal. There is trace mitral valve regurgitation. There is no mitral valve stenosis. Pulmonic Valve The pulmonic valve is likely normal. Tricuspid Valve There is mild tricuspid valve regurgitation. There is no evidence of pulmonary hypertension. Great Vessels The asc aorta and aortic arch are normal in size. Venous The inferior vena cava is normal in size and collapses less than 50% with inspiration. Pericardium/Pleural There is no evidence of pericardial effusion. Prior Study Comparison No prior study available for comparison. Recommendations, Care & Conclusions No obvious valvular pathology seen on this study. Measurements 2D Linear Measurements IVSd: 0.83 0.6-0.9/0.6-1.0 cm LVIDd: 4.74 3.9-5.3/4.2-5.9 cm LVIDd Index: 2.03 2.4-3.2/2.2-3.1 cm/m2 LVIDs: 2.99 2.0-3.6 cm LVPWd: 0.94 0.7-1.1 cm LA Diam: 3.40 2.7-3.8/3.0-4.0 cm LAIDs Index: 1.46 1.5-2.3 cm/m2 LV Mass: 175.12 67-162/88-224 g LV Mass Index: 75.16 43-95/49-115 g/m2 LVOT Diam: 2.10 3.0+(-)1.3 cm 2D Systolic Function EF 4C: 58.30 >55% EF 2C: 58.00 >55% EF BiP: 58.40 >55% Mitral Valve MV Pk E: 0.90 MV PK A: 0.73 MV Decel Time: 241.00 E/A: 1.20 E'Lateral: 12.10 E'Medial: 11.40 E/E' Med: 7.90 E/E' Lat: 7.40 PHT: 70.00 MVA PHT: 3.14 Decel Costilla: 3.72 Aortic Valve AoV Pk Ken: 1.47 AoV Mn Ken: 1.07 AoV VTI: 0.34 AoV Pk Grad: 9.00 Aov Mn Grad: 5.00 EYAL Cont.VTI: 2.48 LVOT LVOT Pk Ken: 1.12 LVOT Mn Ken: 0.76 LVOT VTI: 0.24 LVOT Pk Grad: 5.00 LVOT Mn Grad: 3.00 LVOT Diam: 2.10 LVOT Area: 3.46 Diastolic Function MV Pk E: 0.90 MV Pk A: 0.73 E/A: 1.20 E'Medial: 11.40 E/E' Med: 7.90 E' Laterial: 12.10 E/E' Lat: 7.40 Right Ventricle TAPSE (mm): 22.30 TVS' Ken: 17.30 Tricuspid Valve TR Pk Ken: 2.43 TR Pk Grad: 24.00 RA Press: 8.00 RVSP: 32.00 Great Vessels Aorta Sinus of Valsalva: 3.46 2.0-3.[address] Ridge: 2.50 1.7-3.4 cm Ao Asc: 3.30 2.1-3.4 cm Ao Arch: 3.00 Updated in Other Vendor System with Status of Final Prabhu Hancock MD electronically signed on 07/08/2022 12:20:58 PM with status of Final
== END ==
LOC: HO.CARD 09:53
PROVIDERS: PCP Internal Medicine; Visit Provider Internal Medicine Cardiovascular Disease
DX: I10 Essential (primary) hypertension (principal)
CPT/HCPCS: 93306; 93356

== ENCOUNTER → 2022-07-10 09:30 | Outpatient (REF) | payer MEDICARE, MEDICAID, SELFPAY ==
--- NOTE | ~2022-07-10 | NM_ITS ---
Myocardial perfusion study Indication: CAD Technique: The patient was brought in for a Lexiscan perfusion study on 07/10/2022. Patient performed low-level exercise and was injected 0.4 mg of Lexiscan intravenously. Within a minute of injection, 40 mCi of sestamibi was given intravenously. Images were obtained using the SPECT gamma camera interlaced with the gating device. Images were obtained in supine position. Resting perfusion study was performed on 07/11/2022. Patient was administered 40 mCi of sestamibi intravenously at rest. Images were then obtained in supine position. Images were processed with the software and compared side to side in short axis, horizontal long axis and vertical long axis views. Findings: Both stress and rest perfusion study is somewhat limited due to presence of intense subdiaphragmatic uptake interfering with inferior wall uptake. The stress perfusion study showed non attenuated images show overall normal uptake of radiotracer in all segments of LV myocardium except for small area of mildly reduced uptake in the basal inferior and inferolateral wall of the LV myocardium. Attenuation corrected images are suboptimal due to intense subdiaphragmatic uptake overall shows mildly reduced uptake in the distal septum of the LV myocardium.. The gated study shows reduced LV systolic function with calculated LVEF of 49%. LV cavity is normal in size. The gated study shows normal systolic wall thickening and contraction of segments. Resting study shows nontender images show no change in uptake pattern compared to stress perfusion study. Attenuated corrected images suboptimal. Gating at rest reveals normal wall motion with ejection fraction at 44%. The findings are consistent with no clear reversible defect suggestive of ischemia. Basal inferior wall defect could be attenuation although nontransmural infarct in the inferior wall cannot be entirely ruled out. NM/NM berenice perf SPECT rest & str Impression: 1. Myocardial perfusion imaging study shows no reversible ischemia mild intensity basal inferior defect 2. Gated LVEF is 49% 3. Transient ischemic dilatation not present EKG is nondiagnostic for ischemia
--- NOTE | 2022-07-10 09:34 | CA_ITS ---
Acquisition Time: 2022-07-10 09:43:05 Total Exercise Time: 00:02:00 Test Indications: Dyspnea Medications: SEE H Protocol: LEXISCAN Max HR: 113 BPM 69% of Pred: 162 BPM Max BP: 142/076 mmHG Max Work Load: 1.0 METS Pharmacological stress test with lexiscan injection while sitting and kicking his legs without anginal symptoms, without arrythmias, normotensive response, with non-diagnositic EKG for ischemia. Nuclear images pending. Test reviewed with Dr. Hancock. Referred By: Akbar Banuelos Overread By: PETER HUMPHRIES
== END ==
LOC: HO.CARD 09:30
PROVIDERS: PCP Internal Medicine; Visit Provider Internal Medicine Cardiovascular Disease
DX: I25.10 Atherosclerotic heart disease of native coronary artery without angina pectoris (principal)
CPT/HCPCS: 78452; 93017; A9500; J2785

== ENCOUNTER → 2022-07-14 11:06 | Outpatient (BNVA) | payer MEDICARE, MEDICAID, SELFPAY | PROVIDERS: PCP Internal Medicine; Visit Provider Internal Medicine | DX: K25.9 Gastric ulcer, unspecified as acute or chronic, without hemorrhage or perforation (principal); A04.8 Other specified bacterial intestinal infections; E88.81 Metabolic syndrome and other insulin resistance | CPT/HCPCS: 99212 ==

== ENCOUNTER 2022-07-21 09:31 | Outpatient (REF) | payer MEDICARE, MEDICAID, SELFPAY ==
--- NOTE | ~2022-07-21 | US_ITS ---
EXAMINATION: US ABDOMEN COMPLETE CLINICAL INFORMATION: Obesity, unspecified. ?Fatty liver. COMPARISON: None available. TECHNIQUE: Real-time imaging of the abdominal viscera. FINDINGS: PANCREAS: The head and the body of the pancreas is homogeneous in echotexture. The tail is obscured. ABDOMINAL AORTA: The proximal, mid, and distal segments are normal in caliber. INFERIOR VENA CAVA: Visualized portions are normal. LIVER: The liver is normal in size. The liver contour is normal. There is increased liver echogenicity with a heterogeneous echotexture No focal hepatic lesion. There is no intrahepatic biliary duct dilatation seen. GALLBLADDER: Normal. The gallbladder is physiologically distended without evidence of stones, sludge, polyps, wall thickening or pericholecystic fluid. COMMON BILE DUCT: Normal in caliber measuring 0.2 cm in diameter. RIGHT KIDNEY: No hydronephrosis or renal calculi. The kidney measures 10.2 cm in maximum dimension. There is an anechoic cyst in lower pole medially measuring 1.1 x 1.0 x 1.3 cm. LEFT KIDNEY: No hydronephrosis. No renal calculi or focal parenchymal lesions. The kidney measures 10.9 cm in maximum dimension. Echogenic vascular calcifications are seen. SPLEEN: The spleen measures 6.3 cm in maximum dimension. FREE FLUID: None. US/US abdomen complete IMPRESSION: 1. Heterogeneous echogenic liver without focal lesion. 2. Small cyst lower pole right kidney. 3. The rest of the abdominal ultrasound is unremarkable.
[2022-07-21 12:55] LABS: C Reactive Protein 0.16 mg/dL (< or = 0.50); Rheumatoid Factor < 13.0 IU/mL (<15.0)
[2022-07-21 13:01] LABS: Erythrocyte Sedimentation Rate 2 MM/HR (0-15)
[2022-07-21 13:11] LABS: Hepatitis A Antibody IgG Nonreactive (Nonreactive); ~Hepatitis A Antibody IgG 0.27 S/CO (0.00-0.99)
[2022-07-21 13:13] LABS: HBc Num1 0.05 S/CO (0.00-0.79); HBsAGNum1 0.31 S/CO (0.00-0.99); Hepatitis B Core Antibody Nonreactive (Nonreactive); Hepatitis B Surface Antigen Negative (Negative); ~Hepatitis B Surface Antibody NONREACTIVE (Nonreactive)
[2022-07-21 13:14] LABS: ~HepC Num1 0.08 S/CO (0.00-0.79); ~Hepatitis C Antibody Nonreactive (Nonreactive)
[2022-07-21 13:17] LABS: PSA,Total (Free>4and<10) 9.25 ng/mL (0.00-4.00)
[2022-07-24 11:54] LABS: Free Prostate Spec Ag 0.4 ng/mL; Percent Free Prostate Spec Ag 5 % (calc) (>25); Prostate Specific Ag Total 8.8 ng/mL (< OR = 4.0)
[2022-07-24 15:58] LABS: ANA Pattern 2 Nuclear, Speckled; ANA Titer 2 1:40 titer; Anti Nuclear Antibody Pattern Nuclear, Nucleolar; Anti Nuclear Antibody Screen POSITIVE (NEGATIVE)
== END 2022-07-21 09:32 | disposition home or self-care (01) ==
LOC: HO.US 09:31
PROVIDERS: Internal Medicine; Absent Provider Urology; PCP Physician Assistant; Visit Provider Internal Medicine
DX: Z12.5 Encounter for screening for malignant neoplasm of prostate (principal); E11.9 Type 2 diabetes mellitus without complications; E66.9 Obesity, unspecified; M25.541 Pain in joints of right hand; M25.542 Pain in joints of left hand; R97.20 Elevated prostate specific antigen [PSA]; K76.0 Fatty (change of) liver, not elsewhere classified; K74.60 Unspecified cirrhosis of liver; Z11.59 Encounter for screening for other viral diseases; Z72.89 Other problems related to lifestyle
CPT/HCPCS: 36415; 76700; 84153; 84154; 85652; 86038; 86039; 86140; 86431; 86704; 86706; 86708; 86803; 87340

== ENCOUNTER → 2022-08-01 13:50 | Outpatient (BNVA) | payer MEDICARE, MEDICAID, SELFPAY | PROVIDERS: PCP Internal Medicine; Visit Provider Urology | DX: N40.0 Benign prostatic hyperplasia without lower urinary tract symptoms (principal); R97.20 Elevated prostate specific antigen [PSA] | CPT/HCPCS: 99212 ==

== ENCOUNTER → 2022-08-14 14:50 | Outpatient (BNVA) | payer MEDICARE, MEDICAID, SELFPAY | PROVIDERS: PCP Internal Medicine; Referring Provider Internal Medicine; Visit Provider Nurse Practitioner Family | DX: I25.10 Atherosclerotic heart disease of native coronary artery without angina pectoris (principal); E78.00 Pure hypercholesterolemia, unspecified; I10 Essential (primary) hypertension; E11.9 Type 2 diabetes mellitus without complications; Z95.5 Presence of coronary angioplasty implant and graft | CPT/HCPCS: 99212 ==

== ENCOUNTER 2022-08-19 09:08 | Outpatient (REF) | payer MEDICARE, MEDICAID, SELFPAY ==
[2022-08-22 11:26] LABS: H Pylori Breath Test Negative (Negative)
== END 2022-08-19 09:09 | disposition home or self-care (01) ==
LOC: HO.LNP 09:08
PROVIDERS: PCP Internal Medicine; Visit Provider Internal Medicine
DX: Z11.2 Encounter for screening for other bacterial diseases (principal)
CPT/HCPCS: 83013; 99211

== ENCOUNTER 2022-09-02 08:30 | Outpatient (REF) | payer MEDICARE, MEDICAID, SELFPAY ==
[2022-09-02 08:31] VITALS: BP 136/78; PULSE 83; RESP 16; TEMP 36.8; O2SAT 96; BMI 38.2
--- NOTE | 2022-09-02 08:55 | W.PM.OPN ---
Operative Note Operative Note Date of Service: 09/02/22 Narrative: Preoperative diagnosis: Elevated PSA Postoperative diagnosis: Elevated PSA Procedure: 1. transrectal ultrasound measurement of prostate 2. transrectal ultrasound-guided pudendal nerve block 3. transrectal ultrasound-guided prostate biopsy 12 core Surgeon: Dr. Inocencio Lynn Anesthetic: Local Indications for procedure: Elevated PSA 11.7 Procedure: After informed consent was verified, the patient was brought into the procedure area and lay left-hand side down on the table. Patient identity confirmed. Perioperative antibiotics confirmed. Safety pause time out performed. DANA performed to dilate rectal sphincter Iodine 10cc with Gel was placed per rectum Ultrasound probe was placed per rectum The prostate was measured in 3 dimensions Total volume equals 45 gm [No] cystic structures were noted [No] calcifications were noted at the surgical margin The prostate was otherwise [homogeneous] [heterogenous] in nature An ultrasound-guided pudendal nerve block was performed using 10 cc of 1% lidocaine. 8 cc was placed at the base and 2 cc of the apex. A 12 core biopsy was performed with 6 cores each side. Two cores were taken at the apex, mid and base. Cores were spaced between lateral and medial. He tolerated the procedure well. Was able to ambulate to bathroom after 5 minutes. Printed instructions regarding antibiotic use and common side effects such as low-grade temperature, potential infection and bleeding were given Pathology: 12 core prostate biopsy.
[2022-09-02 09:05] VITALS: BP 134/86; PULSE 88; RESP 16; O2SAT 99
== END 2022-09-02 08:31 | disposition home or self-care (01) ==
LOC: HO.MS 08:30
PROVIDERS: PCP Internal Medicine; Visit Provider Urology
PROC: (CPT 55700; principal; 2022-09-02 08:00)
DX: C61 Malignant neoplasm of prostate (principal); R97.20 Elevated prostate specific antigen [PSA]
CPT/HCPCS: 55700; 76942; 88305

== ENCOUNTER → 2022-09-23 08:32 | Outpatient (BNVA) | payer MEDICARE, MEDICAID, SELFPAY | PROVIDERS: PCP Internal Medicine; Visit Provider Urology | DX: C61 Malignant neoplasm of prostate (principal) | CPT/HCPCS: Q3014 ==

== ENCOUNTER → 2022-10-14 13:08 | Outpatient (BNVA) | payer MEDICARE, MEDICAID, SELFPAY | PROVIDERS: PCP Internal Medicine; Visit Provider Hospitalist | DX: Z01.811 Encounter for preprocedural respiratory examination (principal); J84.10 Pulmonary fibrosis, unspecified; J44.9 Chronic obstructive pulmonary disease, unspecified; G47.33 Obstructive sleep apnea (adult) (pediatric); R05.3 Chronic cough; K44.9 Diaphragmatic hernia without obstruction or gangrene; R91.8 Other nonspecific abnormal finding of lung field | CPT/HCPCS: 94010; 99212 ==

== ENCOUNTER 2022-10-24 13:10 | Outpatient (AMB) | payer MEDICARE, MEDICAID, SELFPAY ==
--- NOTE | 2022-10-24 13:18 | A.OFFVIS_ITS ---
Intake Intake Visit Reasons: follow up/MRI (set) Intake Note: Patient is present for Follow Up MRI/PVR Urology Med: Doxazosin, Antibiotic Allergy: None Blood Thinner: Aspirin PVR: 0ml Allergies No Known Allergies Allergy (Verified 10/24/22 13:19) HPI HPI Comments History of Present Illness Details Kd is a pleasant male. He is a patient Dr. Raza. He is seen for following urologic conditions - elevated PSA Pet-CT shows no evidence of disease outside the prostate MRI was pending Plan for GnRH 2 weeks Due to comorbidities interested in radiation Prostate Cancer: 08/24 High volume Grade Group [address] Lynn, PSA 8.8 free PSA 5% Biopsy pT1c Ramsey score: 4+3=7 (left apex medial, right base medial) 3+4=7 (left mid medial, right base lateral and medial, right mid lateral and medial, right apex medial) 3+3= 6 (left base lateral, left mid lateral, left apex lateral, right apex lateral) Tumor quantitation: Number cores positive: 12 Total number of cores: 12 % of tissue involved: 30% of all tissue examined Periprostatic fat inv.: Not identified Seminal vesicle inv.: Not identified Perineural inv.: Present, multifocal LVI: Not identified Staging - 10/24 PET-CT no giovanny disease Lower urinary tract symptoms with elevated PSA Prior evaluation in [place] Did not continue evaluation secondary to COVID Referred for elevated PSA 02/22 15 Nocturia x3 No prior prostate medications DANA 2+ firm Suggest bladder ultrasound, finasteride, terazosin 5 mg and follow-up cystoscopy PFSH Medical History Asthma-COPD overlap syndrome Benign essential hypertension Bronchial asthma Chronic cough Coronary artery disease Degenerative disc disease Diabetes mellitus Hiatal hernia Hiatal hernia HTN (hypertension) Lung fibrosis Obesity (BMI 30-39.9) LUIS (obstructive sleep apnea) Pulmonary nodules Pure hypercholesterolemia Surgical History (Updated 11/03/22 @ 10:45 by Kelly Gaspar RN) History of esophagogastroduodenoscopy (EGD) Hx of colonoscopy Hx of prostate biopsy S/P arterial stent Social History Housing: Apartment Alcohol intake: never Patient Tobacco Use Status: Never used Tobacco e-Cigarette/Vaping Use: Never Used Substance Use Type: Marijuana service: No Current occupational status: disabled Cognitive needs: No Hearing needs: No Vision needs: Yes Review of Systems Const Denies chills and Denies fever(s) Card Reports no additional complaints and Denies syncope Resp Denies cough GI Denies abdominal pain and Denies heartburn Reports as per HPI and Denies change in libido Neuro Denies syncope Psych Denies change in libido Endo Denies change in libido Physical Exam Const General: cooperative, healthy appearing, comfortable and no acute distress Orientation/consciousness: patient oriented x3 HEENT Face and sinus: Yes normal facial exam Mouth: moist mucous membranes Neck Neck: Yes normal visual inspection, Yes full ROM and Yes trachea midline Chest Chest palpation & inspection: normal inspection of the chest Resp Effort & Inspection: normal respiratory effort, able to speak in complete sentences and no respiratory distress GI Inspection: Yes normal to inspection Back/Spine/Pelvis Cervical Spine: normal cervical lordosis Thoracic/Lumbar Spine: thoracic and lumbar spine normal to inspection Skin General skin exam: no rashes or lesions noted Neuro General: patient oriented x3, gait normal, tone normal and moves all extremities Extrem General: Yes normal to inspection and Yes capillary refill normal Office Procedures Post Void Residual Post Residual Void Post Void Residual (PVR): 0 [id number] Void Residual by ultrasound Assessment & Plan Assessment & Plan (1) Prostate cancer: Code(s): C61 - Malignant neoplasm of prostate Plan Radiation referral Orders: Orders AMB Post Void Residual by ultrasound 10/24/22 N40.0 - Benign prostatic hyperplasia without lower urinary tract symptoms Medications: Discontinued omeprazole Take 30 mins before meals 40 mg PO BID 8 weeks 112 caps 0RF Patient Instructions: Imaging studies, laboratory and physical exam results were discussed and reviewed in detail. No major barriers to patient understanding were identified. An opportunity to ask questions regarding the treatment plan was provided. All questions were answered. The patient expressed understanding and agreement with the above treatment plan. The patient is aware they should contact our office by phone for worsening of their current condition or the appearance of new urologic symptoms. Compliance is encouraged with any medications and followup testing that is ordered. It is a privilege to participate in the urologic care of your patient. If you have any questions or concerns regarding treatment for the above conditions, or other urologic issues, please do not hesitate to contact me. The office telephone contact is [phone]. This note is constructed using voice recognition software. While every effort has been made to ensure accuracy clothing sales assistant errors may have been included. Yours sincerely, Dr Inocencio Lynn MD, [facility] - Urology Providers of Expert, Compassionate Care for the Genitourinary System Coding Level of Care Code Est Pt Level 4 (93659) Diagnoses Prostate cancer C61 CPT Codes Post Residual Void - PVR CPT Code: 96496-[id number] Void Residual by ultrasound ([id number])
== END 2022-10-24 14:15 | disposition home or self-care (01) ==
LOC: HO.HUSH 13:10
PROVIDERS: PCP Internal Medicine; Visit Provider Urology
DX: C61 Malignant neoplasm of prostate (principal)
CPT/HCPCS: 99214

== ENCOUNTER → 2022-10-24 13:10 | Outpatient (BNVA) | payer MEDICARE, MEDICAID, SELFPAY | PROVIDERS: PCP Internal Medicine; Visit Provider Urology | DX: C61 Malignant neoplasm of prostate (principal) | CPT/HCPCS: 51798; 99212 ==

== ENCOUNTER 2022-11-06 10:23 | Day surgery (SDC) | payer MEDICARE, MEDICAID, SELFPAY ==
[2022-11-03 10:52] VITALS: BMI 35.0
--- NOTE | 2022-11-06 10:28 | MHC.SHP ---
Pre-Procedural Eval Section A Date of Service: 11/06/22 Section B Chief Complaint: Gastric ulcer Details of Present Illness: PMH: Benign essential hypertension Bronchial asthma Chronic cough Coronary artery disease Degenerative disc disease Diabetes mellitus Hiatal hernia Hiatal hernia HTN (hypertension) Lung fibrosis Obesity (BMI 30-39.9) LUIS (obstructive sleep apnea) Pure hypercholesterolemia Surgical History: History of esophagogastroduodenoscopy (EGD) Hx of colonoscopy S/P arterial stent Allergies: Allergies Allergy/AdvReac Type Severity Reaction Status Date / Time No Known Allergies Allergy Verified 10/24/22 13:19 Review of Systems Review of Systems Comment: Ten point ROS negative Exam Exam Comment: Gen appear: No acute distress HEENT: no icterus Chest: No overt resp distress Abd: soft, nontender, nondistended Psych: Stable affect, answering questions appropriately Neuro: A/Ox3 noted to move all extremities spontaneously Ext: no peripheral edema Plan Diagnosis/Plan: Unchanged I have reviewed the history and physical and performed a pertinent physical examination on my patient. No changes have occurred unless specified. Time Spent With Patient Time: Total time managing care of this patient today ____ minutes.
[2022-11-06 11:02] VITALS: BP 106/66; PULSE 76; RESP 16; TEMP 36.7; O2SAT 96
--- NOTE | 2022-11-06 12:18 | W.PM.OPN ---
Operative Note Operative Note Date of Service: 06/25/22 Narrative: Procedure: Esophagogastroduodenoscopy Endoscopist: Grisel Deng MD Indication: Gastric ulcer Anesthesia Provider: Dr Erna Vargas Anesthesia Type: MAC ?? EGD Procedure:?? The procedure, indications, preparation and potential complications were reviewed with the patient, who indicated understanding and gave written informed consent to proceed. presser first assisted with the encounter. A physical exam was performed. The endoscope was introduced through the mouth, and advanced to the second part of duodenum. The mucosa was carefully examined on slow withdrawal of the endoscope. The patient tolerated the procedure well. There were no immediate complications.? ? EGD Findings:? Esophagus:? Normal mucosa noted in the entire esophagus. The Z line was at 38 cm and irregular up to 37 cm. Cold forceps biopsies were taken from the salmon colored mucosa above the GE junction. WATS-3D biopsies were also performed. A small hiatal hernia was noted with the diaphragmatic pinch at 40 cm. Stomach:? Healing ulcer at 9 o clock to pyloric channel in the antrum. Only a 3- 4mm minor erosion remained. Cold forceps biopsies were taken. Retroflexion in fundus showed Hill grade I hiatal hernia. Duodenum:? Normal mucosa was noted in the examined duodenum. ? EGD Impressions:? Irregular salmon colored mucosa above the GE junction suspicious for Meier's esophagus (biopsy, WATS) Healing gastric ulcer (biopsy) Hiatal hernia Normal duodenum ?? Recommendations:?? Follow biopsy results. Our office will call or send a letter with results within 7-10 days. Continue PPI therapy, can be decreased to Omeprazole 20mg once daily Avoid NSAIDs. Above has been reviewed with the patient. Relevant educational hand outs were provided at discharge.
[2022-11-06 12:27] VITALS: BP 102/63; PULSE 78; RESP 18; TEMP 36.2; O2SAT 93
[2022-11-06 12:42] VITALS: BP 111/73; PULSE 72; RESP 18; TEMP 36.6; O2SAT 97
--- NOTE | 2022-11-06 13:22 | HO.ANESPROP2 ---
HPI - Anesthesia Eval Consult details Narrative: screening [facility] Active Problems Active Problems: All Active Problems (Updated 10/15/22 @ 08:23 by Adrien Everett MD) Acute respiratory failure with hypoxia (Acute) Asthma (Acute) HTN (hypertension) (Acute) HLD (hyperlipidemia) (Acute) Pulmonary fibrosis (Acute) Obese (Acute) DMII (diabetes mellitus, type 2) (Acute) Enlarged prostate (Acute) CAD (coronary artery disease) (Acute) Hand arthritis (Acute) BPH (benign prostatic hyperplasia) (Acute) GERD (gastroesophageal reflux disease) (Acute) Elevated PSA (Acute) Annual physical exam (Acute) Left knee pain (Acute) Arthralgia of both hands (Acute) H. pylori infection (Acute) Gastric ulcer (Acute) Metabolic syndrome (Acute) Stented coronary artery (Acute) Prostate cancer (Acute) Pre-op chest exam (Acute) Pulmonary nodules (Acute) Asthma-COPD overlap syndrome (Acute) Hiatal hernia (Acute) Hiatal hernia (Acute) Obesity (BMI 30-39.9) (Acute) Benign essential hypertension (Acute) Pure hypercholesterolemia (Acute) Diabetes mellitus (Acute) Coronary artery disease (Acute) LUIS (obstructive sleep apnea) (Acute) Chronic cough (Acute) Degenerative disc disease (Acute) Past Medical History Medical History Asthma-COPD overlap syndrome Benign essential hypertension Bronchial asthma Chronic cough Coronary artery disease Degenerative disc disease Diabetes mellitus Hiatal hernia Hiatal hernia HTN (hypertension) Lung fibrosis Obesity (BMI 30-39.9) LUIS (obstructive sleep apnea) Pulmonary nodules Pure hypercholesterolemia Family History Family history of problems with anesthesia: No Surgical History Surgical History (Updated 11/03/22 @ 10:45 by Kelly Gaspar RN) History of esophagogastroduodenoscopy (EGD) Hx of colonoscopy Hx of prostate biopsy S/P arterial stent History of Problems with Anesthesia: No Social History Social History Housing: Apartment Alcohol intake: never Patient Tobacco Use Status: Never used Tobacco e-Cigarette/Vaping Use: Never Used Substance Use Type: Marijuana service: No Current occupational status: disabled Cognitive needs: No Hearing needs: No Vision needs: Yes Meds Allergies Allergy/AdvReac Type Severity Reaction Status Date / Time No Known Allergies Allergy Verified 10/24/22 13:19 Exam Exam Date and Time: November 06, 2022 1322 Height,Weight and Vital Signs: Height 6 ft Weight 117.027 kg Last Vital Signs Temp 97.9 F 11/06/22 12:42 Pulse 72 11/06/22 12:42 Resp 18 11/06/22 12:42 BP 111/73 11/06/22 12:42 Pulse Ox 97 11/06/22 12:42 O2 Del Method Room Air 11/06/22 12:42 Pertinent Lab Results Pertinent Lab Results: Laboratory Tests 11/06/22 10:54 POC Glucose 101 Airway Mallampati Class: III TM Dist: >3cm Neck ROM: Full Loose/Missing/Broken Teeth: Yes Heart: rr Lungs: cta Assessment and Plan Assessment Anesthesia Assessment: Anesthesia Plan Discussed and Chart Reviewed Final Anesthetic Review Family History of Problems with Anesthesia: No History of Problems with Anesthesia: No NPO: Yes ASA Class: III Final Preanesthetic Review: No Changes in Pt Med Stat, Meds/Allgs Chart Reviewed, Consent Obtained/Reviewed and Anes Risks/Benef Reviewed Anesthetic Plan Anesthetic Plan: MAC: Disposition: Standard PACU
== END 2022-11-06 13:03 | disposition home or self-care (01) ==
PROVIDERS: PCP Internal Medicine; Visit Provider Internal Medicine
PROC: 0DJ08ZZ Inspection of Upper Intestinal Tract, Via Natural or Artificial Opening Endoscopic (ICD-10-PCS; CPT 43235; principal; 2022-11-06 11:20)
DX: K25.9 Gastric ulcer, unspecified as acute or chronic, without hemorrhage or perforation (principal); K20.90 Esophagitis, unspecified without bleeding; K44.9 Diaphragmatic hernia without obstruction or gangrene; E11.9 Type 2 diabetes mellitus without complications; I10 Essential (primary) hypertension; J45.909 Unspecified asthma, uncomplicated; G47.33 Obstructive sleep apnea (adult) (pediatric)
CPT/HCPCS: 43239; 82947; 88305; 88313; 88342

== ENCOUNTER 2022-11-11 12:58 | Outpatient (AMB) | payer MEDICARE, MEDICAID, SELFPAY ==
--- NOTE | 2022-11-11 13:10 | AM.OFFVISNUR ---
Intake Intake Visit Reasons: GnRH injection Allergies No Known Allergies Allergy (Verified 10/24/22 13:19) Office Yessi Romano (6 month) Performing Provider: Inocencio Lynn MD Administered by: Virginia Quispe RN on 11/11/22 13:17 Dose Route Admin Location Lot Number Expiration Date [employer] Screen[employer] Writer 45 mg subcut right arm [id number] 03/04/24 [id number] [employer]. Coding Diagnoses Assessment & Plan Assessment & Plan Orders: Orders AMB Leuprolide Injection - Practice Supplied Today C61 - Malignant neoplasm of prostate Medications: Discontinued omeprazole Take 30 mins before meals 40 mg PO BID 8 weeks 112 caps 0RF
== END 2022-11-11 15:55 | disposition home or self-care (01) ==
PROVIDERS: PCP Internal Medicine; Visit Provider Urology
DX: C61 Malignant neoplasm of prostate (principal)

== ENCOUNTER → 2022-11-11 12:58 | Outpatient (BNVA) | payer MEDICARE, MEDICAID, SELFPAY | PROVIDERS: PCP Internal Medicine; Visit Provider Urology | DX: C61 Malignant neoplasm of prostate (principal) | CPT/HCPCS: 96402; J9217 ==

== ENCOUNTER 2022-11-21 12:23 | Outpatient (AMB) | payer MEDICARE, MEDICAID, SELFPAY ==
--- NOTE | 2022-11-21 12:34 | A.OFFVIS_ITS ---
Intake Vital Signs 11/21/22 12:35 Height 5 ft 10 in Weight 251 lb 5.231 oz BMI 36.1 BP 113/75 Blood Pressure Location Lt brachial Position Sitting Pulse 77 Intake Visit Reasons: s/P EGD; Dr. Deng Intake Note: Kd presents in the office as a follow up EGD. CC: He is not having any concerns today. Adult Nurse Practitioner Required: Yes Adult Nurse Practitioner Name: Son Allergies No Known Allergies Allergy (Verified 11/21/22 12:36) HPI HPI Comments History of Present Illness Details This is a 56-year-old gentleman with past medical history of interstitial lung disease (likely from pneumoconiosis versus sarcoidosis), obesity, type 2 diabetes, hypertension, LUIS, who presents to the office for follow up after EGD. 03/10/22: Patient presents to the office accompanied by his , who also helps with the interpretation. Used to get his gastrointestinal care in [place] (Dr. Alf Jeronimo). Most recent colo 2020 with 2 polyps and repeat recommended in 5 years. He reports never having an upper endoscopy. Reports intermittent heartburn 3 to 4 times a month, managed with Tums. Triggered by spicy or fatty food. Denies any nausea, vomiting, regurgitation, difficulty or painful swallowing, abdominal pain. No unintentional weight loss. No changes in appetite. No changes in bowel habits. 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 As he has significant interstitial lung disease, he has been referred to our office for evaluation and management of reflux disease. 06/25/22 - EGD * Normal esophagus * Gastritis (biopsy) * Gastric ulcer (biopsy) * ? Portal hypertensive gastropathy * Peptic duodenitis (biopsy) Path: A.? Duodenum, biopsy:? Chronic active duodenitis. B.? Stomach, edge of ulcer, biopsy: - Antral-type mucosa with moderate chronic inactive inflammation and regenerative changes. - Positive for H pylori. C.? Stomach, random, biopsy: - Antral-type and oxyntic mucosa with moderate chronic, focally active, inflammation and focal intestinal metaplasia; no dysplasia identified. - Positive for H pylori. 07/14/22: Reports improvement in intermittent burning since starting the omeprazole. EGD and biopsy findings reviewed. Patient does not report any history of smoking, social alcohol use, no NSAID use. No family history of gastric cancer. We also reviewed that some endoscopic features were suggestive of portal hypertensive gastropathy, although no features seen on histology. LFTs were normal as well. Regardless, will obtain an ultrasound liver to further evaluate, as he is at risk for fatty liver disease. This is scheduled for next Thursday. 11/06/22: EGD: * Irregular salmon colored mucosa above the GE junction suspicious for Lu's esophagus (biopsy, WATS) * Healing gastric ulcer (biopsy) * Hiatal hernia * Normal duodenum Path: A.? Stomach, healing gastric ulcer, biopsy:? Antral-type mucosa with moderate chronic, focally active, inflammation, regenerative changes and scattered non- necrotizing granulomata; no Helicobacter organisms seen. B.? EG junction, biopsy: - Cardiac-type mucosa with moderate chronic inactive inflammation and small non-necrotizing granuloma; no intestinal metaplasia seen. - Chronic esophagitis. COMMENT: The differential for the granulomata includes sarcoid, upper tract involvement by Crohns and infection. 11/21/22: Seen with the help of a live fireman helper. Currently reports no gastrointestinal complaints. No abd pain, N,V, heart burn. EGD results and path reviewed with the pt. Reassured that no metaplasia or precancerous changes noted. H pylori treated as discussed before. Bx and WATS negative for lu's as well. [facility] Medical History Asthma-COPD overlap syndrome Benign essential hypertension Bronchial asthma Chronic cough Coronary artery disease Degenerative disc disease Diabetes mellitus Hiatal hernia Hiatal hernia HTN (hypertension) Lung fibrosis Obesity (BMI 30-39.9) LUIS (obstructive sleep apnea) Pulmonary nodules Pure hypercholesterolemia Surgical History History of esophagogastroduodenoscopy (EGD) Hx of colonoscopy Hx of prostate biopsy S/P arterial stent Social History Housing: Apartment Alcohol intake: never Patient Tobacco Use Status: Never used Tobacco e-Cigarette/Vaping Use: Never Used Substance Use Type: Marijuana service: No Current occupational status: disabled Cognitive needs: No Hearing needs: No Vision needs: Yes Review of Systems Const All systems reviewed & are unremarkable except as noted in HPI and below Physical Exam Vital Signs: Last Vital Signs Pulse 77 11/21/22 12:35 BP 113/75 11/21/22 12:35 BMI result Body Mass Index 36.1 Gen appear: NAD HEENT: nonicteric, no cervical lymphadenopathy Chest: CTA CVS: Regular S1/S2 Abd: soft, nontender, nondistended, bowel sounds + Ext: no peripheral edema Neuro: A/Ox3, noted to move all extremities spontaneously Psych: interacting appropriately Assessment & Plan Assessment & Plan (1) H. pylori infection: Code(s): A04.8 - Other specified bacterial intestinal infections (2) Gastric ulcer: Code(s): K25.9 - Gastric ulcer, unspecified as acute or chronic, without hemorrhage or perforation (3) Personal history of colonic polyps: Code(s): Z86.010 - Personal history of colonic polyps (4) Non-caseating granuloma: Code(s): L92.9 - Granulomatous disorder of the skin and subcutaneous tissue, unspecified Plan 1. H pylori gastritis and ulcer ? Gastric sarcoid: Previously noted ulcer has healed up. Non-caseating granulomas noted on most recent gastric path. Unclear if ulcer from H pylori vs possible gastric sarcoid as healed after eradication of H pylori as well as with PPI therapy. In any case, does not have any residual GI sx to include abd pain, N,V, weight loss etc to warrant steroid trial. Recommendations: - Avoid NSAIDs, smoking and etOH - Pt advised to call us for any recurrence of GI sx 2. Personal hx of polyps: Repeat colo due in 2025. Reminder placed, bulletin board updated in [facility]. Follow up PRN Medications: Discontinued omeprazole Take 30 mins before meals 40 mg PO BID 8 weeks 112 caps 0RF Coding Level of Care Code Est Pt Level 4 (63753) Diagnoses H. pylori infection A04.8 Gastric ulcer K25.9 Personal history of colonic polyps Z86.010 Non-caseating granuloma L92.9
[2022-11-21 12:35] VITALS: BP 113/75; PULSE 77; BMI 36.1
== END 2022-11-21 14:35 | disposition home or self-care (01) ==
PROVIDERS: PCP Internal Medicine; Visit Provider Internal Medicine
DX: A04.8 Other specified bacterial intestinal infections (principal); K25.9 Gastric ulcer, unspecified as acute or chronic, without hemorrhage or perforation; Z86.010 Personal history of colon polyps; L92.9 Granulomatous disorder of the skin and subcutaneous tissue, unspecified
CPT/HCPCS: 99214

== ENCOUNTER → 2022-11-21 12:23 | Outpatient (BNVA) | payer MEDICARE, MEDICAID, SELFPAY | PROVIDERS: PCP Internal Medicine; Visit Provider Internal Medicine | DX: A04.8 Other specified bacterial intestinal infections (principal); K25.9 Gastric ulcer, unspecified as acute or chronic, without hemorrhage or perforation; L92.9 Granulomatous disorder of the skin and subcutaneous tissue, unspecified; Z86.010 Personal history of colon polyps; Z98.890 Other specified postprocedural states | CPT/HCPCS: 99212 ==

== ENCOUNTER → 2022-12-19 15:16 | Outpatient (BNVA) | payer MEDICARE, MEDICAID, SELFPAY | PROVIDERS: PCP Internal Medicine; Visit Provider Urology ==

== ENCOUNTER 2022-12-26 12:19 | Outpatient (AMB) | payer MEDICARE, MEDICAID, SELFPAY ==
--- NOTE | 2022-12-26 12:19 | A.OFFVIS_ITS ---
Intake Intake Visit Reasons: MRI(Gunjan 12/18) Intake Note: Patient presents via telephone visit for MRI results. Platform Consultant Required: Yes Platform Consultant Language: Cymraes Information Interpreted: non-clinical & clinical Accompanied by: Significant Other Allergies No Known Allergies Allergy (Verified 12/26/22 12:20) HPI HPI Comments History of Present Illness Details Kd is a pleasant male. He is a patient Dr. Raza. He is seen for following urologic conditions - elevated PSA Telemedicine Evaluation 15 min Consultation [employer] Sheila Video attempted Follow-up from radiation assessment MRI shows no evidence of disease outside prostate Would organize [employer] with markers Prostate Cancer: 08/24 High volume Grade Group 3 - GnRH 11/[address] Lynn, PSA 8.8 free PSA 5% Biopsy pT1c [place] score: 4+3=7 (left apex medial, right base medial) 3+4=7 (left mid medial, right base lateral and medial, right mid lateral and medial, right apex medial) 3+3= 6 (left base lateral, left mid lateral, left apex lateral, right apex lateral) Tumor quantitation: Number cores positive: 12 Total number of cores: 12 % of tissue involved: 30% of all tissue examined Periprostatic fat inv.: Not identified Seminal vesicle inv.: Not identified Perineural inv.: Present, multifocal LVI: Not identified Staging - 10/24 PET-CT no giovanny disease - 10/24 prostate MRI anterior 1.2 cm lesi on, 30 g prostate, no evidence of extracapsular extension Lower urinary tract symptoms with elevated PSA Prior evaluation in [place] Did not continue evaluation secondary to COVID Referred for elevated PSA 02/22 15 Nocturia x3 No prior prostate medications DANA 2+ firm Suggest bladder ultrasound, finasteride, terazosin 5 mg and follow-up cystoscopy PFSH Medical History Asthma-COPD overlap syndrome Benign essential hypertension Bronchial asthma Chronic cough Coronary artery disease Degenerative disc disease Diabetes mellitus Hiatal hernia Hiatal hernia HTN (hypertension) Lung fibrosis Obesity (BMI 30-39.9) LUIS (obstructive sleep apnea) Pulmonary nodules Pure hypercholesterolemia Surgical History History of esophagogastroduodenoscopy (EGD) Hx of colonoscopy Hx of prostate biopsy S/P arterial stent Social History Housing: Apartment Alcohol intake: never Patient Tobacco Use Status: Never used Tobacco e-Cigarette/Vaping Use: Never Used Substance Use Type: Marijuana service: No Current occupational status: disabled Cognitive needs: No Hearing needs: No Vision needs: Yes Review of Systems Const All systems reviewed & are unremarkable except as noted in HPI and below Reports no additional complaints Resp Reports no additional complaints GI Reports no additional complaints Reports as per HPI Musc Reports no additional complaints Physical Exam Telemedicine evaluation Appropriate responses Regular breathing rate and rhythm HEENT Head: Yes normal to inspection Ears: hearing grossly normal bilaterally Eyes General: appearance normal, both eyes and all related structures Neck Neck: Yes normal visual inspection Chest Chest palpation & inspection: normal inspection of the chest Resp Effort & Inspection: normal respiratory effort and able to speak in complete sentences Assessment & Plan Assessment & Plan (1) Prostate cancer: Comment: 08/24 high volume grade group 3 Code(s): C61 - Malignant neoplasm of prostate Plan Refer radiation oncology Risks, benefits and alternatives to therapy were discussed. These include but are not limited to infection, bleeding, damage to local organs and tissues, need for further interventions. Anesthetic risks regarding cardiac arrhythmia, blood clots, and potential mortality were discussed. The patient understands the typical recovery time and the outpatient nature of the procedure. After consideration of these risks the patient gives full informed consent and they wish to move ahead with the procedure. [facility] with prostate markers Telehealth Telehealth Location of provider rendering services: practice address Location of patient: address on file Patient Identification confirmed using: Name, : Yes Telehealth method: video Patient verbally consented to treatment: Yes Patient verbally consented to billing insurance company: Yes Patient informed of any privacy concerns related to visit: Yes Coding Level of Care Code Tele Est Pt Level 4 (34531) Diagnoses Prostate cancer C61
== END 2022-12-26 16:22 | disposition home or self-care (01) ==
LOC: HO.HUSH 12:19
PROVIDERS: PCP Internal Medicine; Visit Provider Urology
DX: C61 Malignant neoplasm of prostate (principal)
CPT/HCPCS: 99214

== ENCOUNTER → 2022-12-26 12:19 | Outpatient (BNVA) | payer MEDICARE, MEDICAID, SELFPAY | PROVIDERS: PCP Internal Medicine; Visit Provider Urology ==

== ENCOUNTER 2023-01-06 09:59 | Outpatient (REF) | payer MEDICARE, MEDICAID, SELFPAY ==
--- NOTE | ~2023-01-06 | CT_ITS ---
EXAMINATION: CT CHEST WITHOUT CONTRAST CLINICAL INFORMATION: Prior abnormal imaging. COMPARISON: 12/02/2021 TECHNIQUE: Multidetector volumetric CT imaging of the chest was done. Axial MIP volume rendering provided. Sagittal and coronal reformatted images were obtained. This CT examination was performed using dose optimization techniques as appropriate, variously including the following: *Automated exposure control *Adjustment of mA and/or kV according to patient size (this includes techniques or standardized protocols for targeted exams where dose is matched to indication/reason for exam; i.e. extremities or head) *Use of iterative reconstruction technique DLP: 415 mGy-cm FINDINGS: LUNGS: Multifocal nodules/nodular densities are relatively stable when compared to the 12/02/2021 exam allowing for technical differences. Scattered foci of mucus plugging. No focal consolidation. Central airways are patent. MEDIASTINUM: No bulky axillary, hilar or mediastinal lymphadenopathy. There are calcified mediastinal and hilar lymph nodes. Great vessels are of normal caliber. Heart size is normal. No significant pericardial effusion. Patulous esophagus. CORONARY ARTERY CALCIFICATION: Marked. PLEURA: No pleural effusion. UPPER ABDOMEN: Small hiatal hernia. No adrenal mass. OSSEOUS STRUCTURES: No destructive bone lesions. CT/CT chest wo IV con IMPRESSION: No significant interval change in bilateral pulmonary nodules. Follow-up chest CT in 18-24 months is advised.
== END 2023-01-06 10:00 | disposition home or self-care (01) ==
LOC: HO.CT 09:59
PROVIDERS: PCP Internal Medicine; Visit Provider Hospitalist
DX: R91.8 Other nonspecific abnormal finding of lung field (principal)
CPT/HCPCS: 71250

== ENCOUNTER 2023-02-04 11:21 | Outpatient (AMB) | payer MEDICARE, MEDICAID, SELFPAY ==
--- NOTE | 2023-02-04 11:22 | A.OFFVIS_ITS ---
Intake Intake Visit Reasons: MRI Results Intake Note: Patient presents via telephone visit for MRI results. Ecommerce Marketing Specialist Required: Yes Ecommerce Marketing Specialist Language: Maldivian Information Interpreted: non-clinical & clinical Allergies No Known Allergies Allergy (Verified 02/04/23 11:23) HPI HPI Comments History of Present Illness Details Kd is a pleasant male. He is a patient Dr. Raza. He is seen for following urologic conditions - elevated PSA Telemedicine Evaluation 15 min Consultation Dox[employer] Sheila Video attempted speaks Yi, he speaks Maldivian Planning for SpaceOAR and marker placement Does need GnRH administration six-month Questions answered Would organize SpaceOAR with markers. Maximum androgen blockade during radiation Prostate Cancer: 08/24 High volume Grade Group 3 - GnRH 11/[address] Lynn, PSA 8.8 free PSA 5% Biopsy pT1c Kent score:4+3=7 (left apex medial, right base medial), 3+4=7 (left mid medial, right base lateral and medial, right mid lateral and medial, right apex medial), 3+3= 6 (left base lateral, left mid lateral, left apex lateral, right apex lateral) Number cores positive: 12 Total number of cores: 12 % of tissue involved: 30% of all tissue examined Periprostatic fat inv.: Not identified Seminal vesicle inv.: Not identified Perineural inv.: Present, multifocal LVI: Not identified Staging - 10/24 PET-CT no giovanny disease - 12/24 prostate MRI anterior 1.2 cm lesi on, 30 g prostate, no evidence of extracapsular extension Lower urinary tract symptoms with elevated PSA Prior evaluation in [place] Did not continue evaluation secondary to COVID Referred for elevated PSA 02/22 15 Nocturia x3 No prior prostate medications DANA 2+ firm Suggest bladder ultrasound, finasteride, terazosin 5 mg and follow-up cystoscopy PFSH Medical History Pulmonary nodules Asthma-COPD overlap syndrome Hiatal hernia Hiatal hernia Obesity (BMI 30-39.9) Benign essential hypertension Pure hypercholesterolemia Diabetes mellitus Coronary artery disease LUIS (obstructive sleep apnea) Chronic cough Degenerative disc disease Lung fibrosis Bronchial asthma HTN (hypertension) Surgical History Hx of prostate biopsy History of esophagogastroduodenoscopy (EGD) Hx of colonoscopy S/P arterial stent Social History Housing: Apartment Alcohol intake: never Patient Tobacco Use Status: Never used Tobacco e-Cigarette/Vaping Use: Never Used Substance Use Type: Marijuana service: No Current occupational status: disabled Cognitive needs: No Hearing needs: No Vision needs: Yes Review of Systems Const All systems reviewed & are unremarkable except as noted in HPI and below Reports no additional complaints Resp Reports no additional complaints GI Reports no additional complaints Reports as per HPI Musc Reports no additional complaints Physical Exam Telemedicine evaluation Appropriate responses Regular breathing rate and rhythm HEENT Head: Yes normal to inspection Ears: hearing grossly normal bilaterally Eyes General: appearance normal, both eyes and all related structures Neck Neck: Yes normal visual inspection Chest Chest palpation & inspection: normal inspection of the chest Resp Effort & Inspection: normal respiratory effort and able to speak in complete sentences Assessment & Plan Assessment & Plan (1) BPH (benign prostatic hyperplasia): Code(s): N40.0 - Benign prostatic hyperplasia without lower urinary tract symptoms Qualifiers: Lower urinary tract symptom presence: symptoms absent Qualified Code(s): N40.0 - Benign prostatic hyperplasia without lower urinary tract symptoms (2) Prostate cancer: Comment: 08/24 high volume grade group 3 Code(s): C61 - Malignant neoplasm of prostate Plan GnRH Risks, benefits and alternatives to therapy were discussed. These include but are not limited to infection, bleeding, damage to local organs and tissues, need for further interventions. Anesthetic risks regarding cardiac arrhythmia, blood clots, and potential mortality were discussed. The patient understands the typical recovery time and the outpatient nature of the procedure. After consideration of these risks the patient gives full inf ormed consent and they wish to move ahead with the procedure. Space oar with marker placement Patient Instructions: Imaging studies, laboratory and physical exam results were discussed and reviewed in detail. No major barriers to patient understanding were identified. An opportunity to ask questions regarding the treatment plan was provided. All questions were answered. The patient expressed understanding and agreement with the above treatment plan. The patient is aware they should contact our office by phone for worsening of their current condition or the appearance of new urologic symptoms. Compliance is encouraged with any medications and followup testing that is ordered. It is a privilege to participate in the urologic care of your patient. If you have any questions or concerns regarding treatment for the above conditions, or other urologic issues, please do not hesitate to contact me. The office telephone contact is [phone]. This note is constructed using voice recognition software. While every effort has been made to ensure accuracy armature connector errors may have been included. Yours sincerely, Dr Inocencio Lynn MD, [facility] - Urology Providers of Expert, Compassionate Care for the Genitourinary System Telehealth Telehealth Location of provider rendering services: practice address Location of patient: address on file Patient Identification confirmed using: Name, : Yes Telehealth method: video Patient verbally consented to treatment: Yes Patient verbally consented to billing insurance company: Yes Patient informed of any privacy concerns related to visit: Yes Coding Level of Care Code Tele Est Pt Level 3 (62484) Diagnoses Benign prostatic hyperplasia without lower urinary tract symptoms N40.0 Lower urinary tract symptom presence: symptoms absent Prostate cancer C61
== END 2023-02-04 11:55 | disposition home or self-care (01) ==
LOC: HO.HUSH 11:21
PROVIDERS: PCP Internal Medicine; Visit Provider Urology
DX: N40.0 Benign prostatic hyperplasia without lower urinary tract symptoms (principal); C61 Malignant neoplasm of prostate
CPT/HCPCS: 99213

== ENCOUNTER → 2023-02-04 11:21 | Outpatient (BNVA) | payer MEDICARE, MEDICAID, SELFPAY | PROVIDERS: PCP Internal Medicine; Visit Provider Urology ==

== ENCOUNTER 2023-02-10 09:59 | Outpatient (AMB) | payer MEDICARE, MEDICAID, SELFPAY ==
--- NOTE | 2023-02-10 10:02 | AM.OFFVISNUR ---
Intake Intake Visit Reasons: GnRH Allergies No Known Allergies Allergy (Verified 02/04/23 11:23) Office Meds Eligard (6 month) 45 mg (6 month) subcutaneous syringe Performing Provider: Inocencio Lynn MD Performing Location: [facility] Documented (not given) by: Oli Warner LPN on 02/10/23 10:03 Reason Not Given: Not Medically Necessary Coding Assessment & Plan Assessment & Plan Orders: Orders AMB Leuprolide Injection - Practice Supplied Today C61 - Malignant neoplasm of prostate
== END 2023-02-10 10:35 | disposition home or self-care (01) ==
PROVIDERS: PCP Internal Medicine; Visit Provider Urology
DX: C61 Malignant neoplasm of prostate (principal)

== ENCOUNTER → 2023-02-10 09:59 | Outpatient (BNVA) | payer MEDICARE, MEDICAID, SELFPAY | PROVIDERS: PCP Internal Medicine; Visit Provider Urology | DX: C61 Malignant neoplasm of prostate (principal) | CPT/HCPCS: 96402; J9217 ==

== ENCOUNTER 2023-02-17 13:24 | Outpatient (AMB) | payer MEDICARE, MEDICAID, SELFPAY ==
[2023-02-17 13:37] VITALS: BP 140/82; PULSE 91; O2SAT 95; BMI 36.7
--- NOTE | 2023-02-17 13:37 | MHC.PC.OV ---
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 Required: No Accompanied by: Self / Same As Patient Allergies No Known Allergies Allergy (Verified 02/17/23 14:22) Medication List - Last Reconciled 02/17/23 by Clayton Raza MD albuterol sulfate 90 mcg/actuation (Ventolin HFA) 2 puffs inhalation Q6H PRN albuterol sulfate 1.25 mg (3 mL) continuous nebulization QID PRN amlodipine 10 mg PO DAILY 90 days aspirin 81 mg PO DAILY 90 days blood pressure test kit-large As directed doxazosin 4 mg PO DAILY 90 days enalapril maleate 20 mg PO DAILY finasteride 5 mg PO BID fluticasone furoate-vilanterol 100-25 mcg/dose (Breo Ellipta) 1 ea inhalation BID fluticasone propionate 50 mcg/actuation 1 spray intranasal DAILY umxmhyzhkha-nnnxxstge-ycgheiqm 200-62.5-25 mcg (Trelegy Ellipta) 1 inh inhalation DAILY 30 days metformin 250 mg (1/2 x 500 mg) PO DAILY 30 days omeprazole 20 mg (1/2 x 40 mg) PO DAILY 30 days rosuvastatin 40 mg PO DAILY Tobacco use date assessed: 02/17/23 Dental Screening Dental Screen Date: 02/17/23 Did you have a dental visit in the last 12 months?: No Did you have a dental problem in the last 6 months where you did not have access to dental care?: No Was dental information given to patient?: No HPI prostate cancer, hyperlipidemia, CAD HPI Details Patient comes in today for his follow up visit States that he feels okay Will be starting radiation Tx for his prostate cancer at [facility] in a couple of weeks on 03/02/2023 He denies any headaches or dizziness Denies any chest pains, no SOB No nausea/vomiting, no abdominal pain No change in bowel habits noted States that he was not able to get his follow up labs done yet and will try to get them done in the next day or so Is still experiencing increased pain over his hands and fingers and states that they feel worse at night at times - has been taking Tylenol for pain but finds that they do not help much lately [facility] Medical History Pulmonary nodules Asthma-COPD overlap syndrome Hiatal hernia Hiatal hernia Obesity (BMI 30-39.9) Benign essential hypertension Pure hypercholesterolemia Diabetes mellitus Coronary artery disease LUIS (obstructive sleep apnea) Chronic cough Degenerative disc disease Lung fibrosis Bronchial asthma HTN (hypertension) Surgical History Hx of prostate biopsy History of esophagogastroduodenoscopy (EGD) Hx of colonoscopy S/P arterial stent Social History Housing: Apartment Alcohol intake: never Patient Tobacco Use Status: Never used Tobacco e-Cigarette/Vaping Use: Never Used Substance Use Type: Marijuana service: No Current occupational status: disabled Cognitive needs: No Hearing needs: No Vision needs: Yes Questionnaire PHQ-9 Over the last 2 weeks, how often have you been bothered by any of the following problems? 1. Little interest or pleasure in doing things: not at all 2. Feeling down, depressed, or hopeless: not at all 3. Trouble falling or staying asleep, or sleeping too much: not at all 4. Feeling tired or having little energy: not at all 5. Poor appetite or overeating: not at all 6. Feeling bad about yourself - or that you are a failure or have let yourself or your family down: not at all 7. Trouble concentrating on things, such as reading the newspaper or watching television: not at all 8. Moving or speaking so slowly that other people could have noticed. Or the opposite - being so fidgety or restless that you have been moving around a lot more than usual: not at all 9. Thoughts that you would be better off or of hurting yourself in some way: not at all Total score: 0 Depression Screening Interpretation: Negative Depression Screening Done: Yes 16920 - PHQ-9 Billing: Yes Source: Developed by Drs. Aram Christopher, Carrie B.W. Urban Dimas and colleagues, with an educational bud from [employer]. Thrive Questionnaire Date Thrive assessed: 02/17/23 I am a: Patient What is your living situation today?: I have a steady place to live Within the past 12 months, did the food you bought not last and you didn't have the money to get more?: Never true Within the past 12 months, did you worry whether your food would run out before you got money to buy more?: Never true Do you have trouble paying for medicines?: No Do you have trouble getting transportation to medical appointments?: No Do you have trouble paying your heating and electricity bill?: No Do you have trouble taking care of your child, family member or friend?: No Do you have trouble with day-to-day activities such as bathing, preparing meals, shopping, managing finances, etc.?: No Are you currently unemployed and looking for a job?: No Are you interested in more education?: No Please select the resources that you would like help with: None Currently or been in a relationship where the following occur: no concerns reported AUDIT C Alcohol Use Questionnaire (AUDIT-C) 1. How often do you have a drink containing alcohol?: Monthly or less 2. How many drinks containing alcohol do you have on a typical day when you are drinking?: 1 or 2 3. How often do you have six or more drinks on one occasion?: Never Total Score: 1 Score Reviewed/Action Taken: Yes JUAN LUIS-7 AMB Questionnaire JUAN LUIS-7 Date JUAN LUIS - 7 assessed: 02/17/23 Feeling nervous, anxious, or on edge: 0 = Not at all Not being able to stop or control worryin = Not at all Worrying too much about different things: 0 = Not at all Trouble relaxin = Not at all Being so restless that it is hard to sit still: 0 = Not at all Becoming easily annoyed or irritable: 0 = Not at all Feeling afraid as if something awful might happen: 0 = Not at all Total JUAN LUIS-7 score (0-4 normal; 5-9 mild; 10-14 moderate; 15-21 severe): 0 Source: Developed by Drs. Aram Christopher, Urban Becerra and colleagues, with an educational bud from [employer] Review of Systems Const Denies fatigue, Denies fever(s) and Denies headache(s) ENT Denies dysphagia, Denies dizziness, Denies otalgia, Denies headache(s), Denies neck pain, Denies odynophagia and Denies sore throat Card Denies chest pain, Denies palpitations and Denies dyspnea Resp Denies cough and Denies dyspnea GI Denies abdominal pain, Denies constipation, Denies dysphagia, Denies heartburn, Denies diarrhea, Denies nausea, Denies odynophagia and Denies vomiting Denies dysuria, Denies nocturia and Denies urinary frequency Musc Denies neck pain Skin/Breast Denies rash Neuro Denies dizziness and Denies headache(s) Endo Denies fatigue and Denies palpitations Physical exam (Primary Care) Vital Signs: Last Vital Signs Pulse 91 02/17/23 13:37 BP 140/82 H 02/17/23 13:37 Pulse Ox 95 02/17/23 13:37 Oxygen Delivery Method Room Air 02/17/23 13:37 BMI result Body Mass Index 36.7 Tobacco/Smoking Status: Tobacco use Status Tobacco use date assessed 02/17/23 02/17/23 13:40 Patient Tobacco Use Status Never used Tobacco 02/17/23 13:40 e-Cigarette/Vaping Use Never Used 02/17/23 13:40 PHQ-9: PHQ-9 Score PHQ-9: Total score 0 02/17/23 13:54 Depression Screening Interpretation: Negative Thrive Assessment: Date of Thrive Assessment Date Thrive assessed 02/17/23 02/17/23 13:40 Currently or been in a relationship where the following occur: no concerns reported Const General: no acute distress and alert HENMT Ears: TM's normal bilaterally and EAC's normal Throat: Yes posterior oropharynx normal and Yes tonsils normal (no TP congestion) Neck Neck: Yes no lymphadenopathy and Yes supple Resp Auscultation: no rales, no wheezes and diminished lung sounds (slightly) bilateral Cardio Rate: regular rate Rhythm: regular rhythm Heart sounds: no murmurs GI Palpation (GI): Soft to palpation and nontender Auscultation: normal bowel sounds Skin Rashes: no rashes Extrem General: Yes no clubbing, cyanosis or edema Results AMB Hemoglobin A1c AMB Hemoglobin A1c 5.9 % Last Edit by Cameron Bonner on 02/17/23 13:54 Results Reviewed Results Reviewed: Laboratory Last Values Hgb A1c (Clinic) 5.9 % (4.0-6.0) 02/17/23 13:53 Assessment and Plan Assessment & Plan (1) Pulmonary fibrosis: Code(s): J84.10 - Pulmonary fibrosis, unspecified Plan: Chest CT done last year on 12/02/2021 revealed (+) chronic pulmonary parenchymal changes with nodules measuring up to 0.9 cm, with (+) coarsely calcified mediastinal/hilar lymph nodes suggesting old granulomatous disease Follow up CT done last month on 01/06/2023 revealed no interval change in bilateral pulmonary nodules and recommend follow up chest CT in 18 to 24 months Continue Trelegy Ellipta 200-62.5-25 mcg 1 inhalation QD Follow up with pulmonary as scheduled (2) Asthma: Code(s): J45.909 - Unspecified asthma, uncomplicated Qualifiers: Asthma severity: moderate Asthma persistence: persistent Asthma complication type: uncomplicated Qualified Code(s): J45.40 - Moderate persistent asthma, uncomplicated Plan: Is currently stable Continue Trelegy Ellipta 200-62.5-25 mcg 1 inhalation QD and Albuterol HFA 2 inhalations Q 6 hours PRN He also has Albuterol nebulizer solution to use with his updraft machine Q 6 hours when needed Follow up with pulmonary as scheduled (3) Coronary artery disease: Comment: S/P coronary stenting following cardiac catheterization in 2019 in [facility] Code(s): I25.10 - Atherosclerotic heart disease of [place] coronary artery without angina pectoris Qualifiers: Coronary Disease-Associated Artery/Lesion type: [place] artery [place] vs. 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 insulin use: without correction use Diabetes mellitus complication status: without complication Qualified Code(s): E11.9 - Type 2 diabetes mellitus without complications Plan: In-office HgbA1c done today is at 5.9% (was at 6.0% a few months ago) - goal is <7.0% Reinforced diabetic diet Continue Metformin 500 mg 1/2 tablet QD (5) Pure hypercholesterolemia: Code(s): E78.00 - Pure hypercholesterolemia, unspecified Plan: Was not able to get his follow up labs done yet - states that he will try to get them done NOMAN Reinforced low cholesterol diet Continue Rosuvastatin 40 mg QD - dose was increased by cardiology a few months ago Will recheck his labs and fasting lipids in 4 months for follow up (6) Benign essential hypertension: Code(s): I10 - Essential (primary) hypertension Plan: Reinforced low sodium diet - goal is systolic BP of at least 120 mm or less Continue Amlodipine 10 mg QD and Enalapril 20 mg QD (7) Prostate cancer: Comment: 08/24 high volume grade group 3 Code(s): C61 - Malignant neoplasm of prostate Plan: Was diagnosed with prostate cancer (adenocarcinoma) a few months ago and is scheduled to start radiation Tx at [facility] at the end of the month (03/02/2023) Follow up with urology as scheduled (8) Arthralgia of both hands: Code(s): M25.541 - Pain in joints of right hand; M25.542 - Pain in joints of left hand Plan: X-rays of both hands done back in June 2022 revealed (+) mild osteoarthritis changes in both hands Labs done a few months ago also came back (+) for ZAHIDA; RA was negative As he was just diagnosed with prostate cancer, will hold off on any further work ups and referrals at this time as patient would like to get his prostate cancer work ups and treatment addressed first Will start him on Tramadol 50 mg BID PRN but advised him to take this only when needed for severe pain - can continue taking Tylenol PRN as well but avoid NSAIDs (9) Left knee pain: Code(s): M25.562 - Pain in left knee Qualifiers: Chronicity: unspecified Qualified Code(s): M25.562 - Pain in left knee Plan: Left knee x-rays done a few months ago in June 2022 revealed (+) mild OA changes Can consider referring him to orthopedics for further management if his knee pain persists or gets worse (10) GERD (gastroesophageal reflux disease): Code(s): K21.9 - Gastro-esophageal reflux disease without esophagitis Qualifiers: Esophagitis presence: without esophagitis Qualified Code(s): K21.9 - Gastro-esophageal reflux disease without esophagitis Plan: Dietary restrictions reinforced Continue Omeprazole 20 mg QD Follow up with GI as scheduled (11) Obesity (BMI 30-39.9): Code(s): E66.9 - Obesity, unspecified Plan: Reinforced diet/exercise as tolerated/lose weight Plan Follow up in 4 months Orders: Orders Comprehensive [place]. Panel Fast 4 Months E78.00 - Pure hypercholesterolemia, unspecified UA CC w/rflx Micro + Cult 4 Months R30.0 - Dysuria AMB Hemoglobin A1c Today Z13.9 - Encounter for screening, unspecified Lipid Panel 4 Months E78.00 - Pure hypercholesterolemia, unspecified Microalbumin, Random (w Creat) 4 Months E11.9 - Type 2 diabetes mellitus without complications Hemoglobin A1c 4 Months E11.9 - Type 2 diabetes mellitus without complications Complete Blood Count Auto Diff 4 Months I10 - Essential (primary) hypertension TSH reflex Free T4 4 Months E78.00 - Pure hypercholesterolemia, unspecified Vitamin D 25-OH Total 4 Months E55.9 - Vitamin D deficiency, unspecified Vitamin B12 and Folate 4 Months E53.8 - Deficiency of other specified B group vitamins Medications: New tramadol 50 mg PO .QD-BID PRN 30 tabs 0RF severe pain Coding Level of Care Code Est Pt Level 4 (85879) Diagnoses Pulmonary fibrosis J84.10 Moderate persistent asthma without complication J45.40 Asthma severity: moderate Asthma persistence: persistent Asthma complication type: uncomplicated Coronary artery disease involving [place] coronary artery of [place] heart without angina pectoris I25.10 Coronary Disease-Associated Artery/Lesion type: [place] artery [place] vs. transplanted heart: [place] heart Associated angina: without angina Type 2 diabetes mellitus without complication, without long-term current use of insulin E11.9 Diabetes mellitus type: type 2 Diabetes mellitus correction insulin use: without termite control service representative use Diabetes mellitus complication status: without complication Pure hypercholesterolemia E78.00 Benign essential hypertension I10 Prostate cancer C61 Arthralgia of both hands M25.541; M25.542 Left knee pain, unspecified chronicity M25.562 Chronicity: unspecified Gastroesophageal reflux disease without esophagitis K21.9 Esophagitis presence: without esophagitis Obesity (BMI 30-39.9) E66.9
[2023-02-17 14:24] VITALS: BP 126/80
== END 2023-02-17 14:32 | disposition home or self-care (01) ==
PROVIDERS: PCP Internal Medicine; Visit Provider Internal Medicine
DX: E11.9 Type 2 diabetes mellitus without complications (principal)
CPT/HCPCS: 83036; 99214

== ENCOUNTER 2023-02-23 06:52 | Day surgery (SDC) | payer MEDICARE, MEDICAID, SELFPAY ==
[2023-02-19 09:11] VITALS: BMI 36.7
--- NOTE | 2023-02-20 11:02 | HO.ANESPROP2 ---
Documented by User: Liudmila Davey NP 02/20/23 11:04 HPI - Anesthesia Eval Consult details Narrative: 57yo M for Space OAR Visicoil Insertion s/p EGD 11/2022 with MAC [place]. Last office visit 08/2022 after cardiac testing (results below). Stable and OK for cardiac f/u in 1 year [facility] Active Problems Active Problems: All Active Problems (Updated 02/19/23 @ 09:13 by Kelly Gaspar RN) Non-caseating granuloma (Acute) Personal history of colonic polyps (Acute) Pre-op chest exam (Acute) Prostate cancer (Acute) Stented coronary artery (Acute) Metabolic syndrome (Acute) Gastric ulcer (Acute) H. pylori infection (Acute) Arthralgia of both hands (Acute) Left knee pain (Acute) Annual physical exam (Acute) Elevated PSA (Acute) GERD (gastroesophageal reflux disease) (Acute) BPH (benign prostatic hyperplasia) (Acute) Hand arthritis (Acute) CAD (coronary artery disease) (Acute) Enlarged prostate (Acute) DMII (diabetes mellitus, type 2) (Acute) Obese (Acute) Pulmonary fibrosis (Acute) HLD (hyperlipidemia) (Acute) HTN (hypertension) (Acute) Asthma (Acute) Acute respiratory failure with hypoxia (Acute) Pulmonary nodules (Acute) Asthma-COPD overlap syndrome (Acute) Hiatal hernia (Acute) Hiatal hernia (Acute) Obesity (BMI 30-39.9) (Acute) Benign essential hypertension (Acute) Pure hypercholesterolemia (Acute) Diabetes mellitus (Acute) Coronary artery disease (Acute) LUIS (obstructive sleep apnea) (Acute) Chronic cough (Acute) Degenerative disc disease (Acute) Past Medical History Medical History Pulmonary nodules Asthma-COPD overlap syndrome Hiatal hernia Hiatal hernia Obesity (BMI 30-39.9) Benign essential hypertension Pure hypercholesterolemia Diabetes mellitus Coronary artery disease LUIS (obstructive sleep apnea) Chronic cough Degenerative disc disease Lung fibrosis Bronchial asthma HTN (hypertension) Family History Family history of problems with anesthesia: No Surgical History Surgical History Hx of prostate biopsy History of esophagogastroduodenoscopy (EGD) Hx of colonoscopy S/P arterial stent History of Problems with Anesthesia: No Social History Social History Housing: Apartment Alcohol intake: never Patient Tobacco Use Status: Never used Tobacco e-Cigarette/Vaping Use: Never Used Substance Use Type: Marijuana service: No Current occupational status: disabled Cognitive needs: No Hearing needs: No Vision needs: Yes Meds Allergies Allergy/AdvReac Type Severity Reaction Status Date / Time No Known Allergies Allergy Verified 02/17/23 14:22 Home Medications Medication Instructions Recorded Confirmed Last Taken Type finasteride 5 mg tablet 5 mg PO BID 11/21/22 02/19/23 02/23/23 08:55 History Exam Exam Date and Time: February 20, 2023 1102 Height,Weight and Vital Signs: Height 5 ft 10 in Weight 116.12 kg Narrative Narrative: Per 08/2022 cardiology visit coronary stent to the mid LAD following abnormal stress test in 01/2019 while in [place]. His EKG 04/29/2022 showed normal sinus rhythm with no acute ST or T-wave abnormalities. Echocardiogram done 07/08/2022 showed EF 58%, mild calcification of the aortic valve, no regional wall motion abnormalities. Nuclear stress test on 07/11/2022 shows no reversible ischemia, mild intensity basal inferior defect, diaphragm artifact verses nontransmural infarct. Assessment and Plan Assessment Anesthesia Assessment: Chart Reviewed Final Anesthetic Review Family History of Problems with Anesthesia: No History of Problems with Anesthesia: No Documented by User: Venu Holt MD 02/26/23 12:21 [facility] Past Medical History Medical History Pulmonary nodules Asthma-COPD overlap syndrome Hiatal hernia Hiatal hernia Obesity (BMI 30-39.9) Benign essential hypertension Pure hypercholesterolemia Diabetes mellitus Coronary artery disease LUIS (obstructive sleep apnea) Chronic cough Degenerative disc disease Lung fibrosis Bronchial asthma HTN (hypertension) Surgical History Surgical History Hx of prostate biopsy History of esophagogastroduodenoscopy (EGD) Hx of colonoscopy S/P arterial stent Social History Social History Housing: Apartment Alcohol intake: never Patient Tobacco Use Status: Never used Tobacco e-Cigarette/Vaping Use: Never Used Substance Use Type: Marijuana service: No Current occupational status: disabled Cognitive needs: No Hearing needs: No Vision needs: Yes Meds Allergies Allergy/AdvReac Type Severity Reaction Status Date / Time No Known Allergies Allergy Verified 02/17/23 14:22 Home Medications Medication Instructions Recorded Confirmed Last Taken Type finasteride 5 mg tablet 5 mg PO BID 11/21/22 02/19/23 02/23/23 08:55 History Exam Airway Mallampati Class: II TM Dist: >3cm Neck ROM: Full Heart: OK. See above. Lungs: OK. Assessment and Plan Assessment Anesthesia Assessment: Anesthesia Plan Discussed Final Anesthetic Review NPO: Yes ASA Class: III Final Preanesthetic Review: No Changes in Pt Med Stat, Meds/Allgs Chart Reviewed, Consent Obtained/Reviewed and Anes Risks/Benef Reviewed Patient Risk: Intermediate Procedure Risk: Intermediate Anesthetic Plan Anesthetic Plan: GA and Agree w/ Assess. and Plan Disposition: Standard PACU
--- NOTE | 2023-02-23 07:31 | P.HPSUR_ITS ---
Pre-Procedural Eval Section A Date of Service: 02/23/23 The patient is an INPATIENT: No Changes since office visit: No Cold of Flu in the past 2 weeks, No New Medical Problems, No Changes in Medication and No Patient answered all questions The History & Physical has been completed within 30 days and I have reviewed it.: Yes Section B Chief Complaint: Malignant neoplasm of prostate Relevant Social History: None Present Medications: see Short Stay Collaborative assessment Medical History: No relevant PMH History of Previous Operations: Relevant previous surgery/procedure and date(s) Allergies: Allergies Allergy/AdvReac Type Severity Reaction Status Date / Time No Known Allergies Allergy Verified 02/17/23 14:22 Review of Systems Sugical H&P ROS: Negative: Constitution, Cardiovascular, Respiratory, Neuro logical, Psychiatric, Hem-Onc, Allergic/Immunologic, Gastrointestinal, Genitourinary, Musculoskeletal, Integumentary, Endocrine and Eyes/Ears/Nose/Throat Exam Surgical H&P Exam: Normal: HEENT, Normal: Heart, Normal: Lungs, Normal: Extremities, Normal: Abdomen, Normal: Skin and Normal: Neurological Plan Diagnosis/Plan: Unchanged I have reviewed the history and physical and performed a pertinent physical examination on my patient. No changes have occurred unless specified. Time Spent With Patient Time: Total time managing care of this patient today ____ minutes.
[2023-02-23 07:34] LABS: Glucose, Whole Blood 105 mg/dL (60-115)
[2023-02-23 08:03] VITALS: BP 147/89; PULSE 67; RESP 18; TEMP 36.5; O2SAT 95
[2023-02-23] MEDS: Albuterol Sulfate (0.083%) 2.5 MG/3 ML VIAL.NEB INHALE (08:13)
--- NOTE | 2023-02-23 09:35 | P.OP_ITS ---
Operative Note Operative Note Date of Service: 02/23/23 Narrative: Preoperative diagnosis: Prostate cancer Postoperative diagnosis: Prostate cancer Procedure: 1. Transrectal ultrasound-guided perineal visicoil marker seed placement 2. Transrectal ultrasound-guided perineal SpaceOAR gel placement Surgeon: Dr. Inocencio Lynn Anesthetic: Sedation Indications for procedure: Prostate Cancer Procedure: After informed consent was verified, the patient was brought into the operating room and anesthesia was performed per protocol. The patient was placed in a modified dorsal lithotomy position. Gel was placed per rectum Ultrasound probe was placed per rectum. The prostate was visualized in sagittal and transverse dimensions. Local anesthetic was infiltrated in the perineal area using 10 cc of lidocaine Visicoil seed markers were placed in a transperineal fashion using ultrasound guidance 1 on the right - 1 toward mid gland. 1 on the left at mid gland. The purpose is for target triangulation. The 2nd part of the procedure was placement of SpaceOAR gel to allow consolidation for radiation delivery. The kit was prepared on the backtable with assembly of the 2 part solution and syringe delivery system. The delivery needle was advanced bevel down in the midline under ultrasound guidance to the apex of the prostate. It was advanced in the plane the prostate from the rectum to the midpoint of the prostate. Location was determined using sagittal and transverse imaging. At the midpoint of the prostate 1 cc of saline was placed to confirm needle position. Further injection saline was placed to confirm spread toward the base of the prostate. Position was confirmed and needle confirmed to be free from tenting of the rectum. With the needle in the confirmed position 10 cc of gel mixture was injected. This was perfformed over a target time of 15-20 seconds to allow for adequate sp read.. Good separation was seen of the rectum from the prostate space running in the midline from the base toward the apex of the prostate. Following completion of the procedure the probe was removed from the rectum. He tolerated the procedure well. He was extubated in the operating room and transferred in stable condition to the recovery area. Pathology none Drains none
[2023-02-23 09:42] VITALS: BP 124/82; PULSE 84; RESP 16; TEMP 36.6; O2SAT 92
[2023-02-23 09:47] VITALS: BP 123/80; PULSE 72; RESP 16; O2SAT 92
[2023-02-23 09:52] VITALS: BP 118/77; PULSE 70; RESP 16; O2SAT 92
[2023-02-23 09:57] VITALS: BP 136/86; PULSE 76; RESP 16; O2SAT 93
[2023-02-23 10:12] VITALS: BP 142/83; PULSE 73; RESP 16; TEMP 36.2; O2SAT 95
== END 2023-02-23 10:45 | disposition home or self-care (01) ==
PROVIDERS: PCP Internal Medicine; Visit Provider Urology
PROC: (CPT 55874; principal; 2023-02-23 08:40)
DX: C61 Malignant neoplasm of prostate (principal); N40.0 Benign prostatic hyperplasia without lower urinary tract symptoms; J44.9 Chronic obstructive pulmonary disease, unspecified; R91.8 Other nonspecific abnormal finding of lung field; I25.10 Atherosclerotic heart disease of native coronary artery without angina pectoris; Z95.5 Presence of coronary angioplasty implant and graft; I10 Essential (primary) hypertension; G47.33 Obstructive sleep apnea (adult) (pediatric); E11.9 Type 2 diabetes mellitus without complications; Z79.899 Other long term (current) drug therapy
CPT/HCPCS: 55874; 55876; 82947; A4648; C1889; J1956; J3010

== ENCOUNTER → 2023-02-23 06:52 | Outpatient (BNV) | payer MEDICARE, MEDICAID, SELFPAY | PROVIDERS: PCP Internal Medicine; Visit Provider Urology | DX: C61 Malignant neoplasm of prostate (principal) | CPT/HCPCS: 55874; 55876; 76872 ==

== ENCOUNTER 2023-03-15 16:58 | Emergency (ER) | payer MEDICARE, MEDICAID, SELFPAY ==
--- NOTE | ~2023-03-15 | XR_ITS ---
EXAMINATION: XR CHEST CLINICAL INFORMATION: Pain, coughing Technique; 2 views. COMPARISON: Grant Officer film from CT of 01/06/2023 chest film dated 04/29/2022 Findings; demonstrates bronchial wall thickening and ill-definition of the central hilar structures. In addition more confluent opacity in the infrahilar region on the right. Infiltrate is suspected. There is no effusion. Cardiac silhouette is within normal limits. XR/XR chest 2V IMPRESSION: Once again ill-defined central hilar bronchial structures suggest bronchial disease but in addition more confluent opacities in the infrahilar region on the right suggest infiltrate.
[2023-03-15 17:10] VITALS: BP 137/77; PULSE 106; RESP 20; TEMP 36.7; O2SAT 95; BMI 35.4
--- NOTE | 2023-03-15 17:25 | ED.ASTHMA ---
HPI - Asthma General Chief Complaint: Asthma Stated Complaint: asthma, sob Time Seen by Provider: 03/15/23 18:45 Source: patient and hourly sign language interpreter Mode of arrival: ambulatory Limitations: language barrier History of Present Illness HPI Narrative: Patient is a 57 year old assigned male at with a history of asthma and HTN presenting to the emergency department today with a cough. Patient states that over the last 6 days he has had a cough that is worsening. Patient denies any dizziness, lightheadedness, abdominal pain, nausea, vomiting, fever, chills, blurry vision, double vision, loss of vision, chest pain, difficulty breathing, shortness of breath, back pain, night sweats, pain with urination, increased urinary frequency, increased urinary urgency, blood in his urine or stool, syncope or a near syncopal episode, recent trauma or falls, bowel incontinence, bladder incontinence, bowel retention, bladder retention, or any other complaints at this time. Onset (ago): day(s) (6) Severity: mild Related Data Home Medications Medication Instructions Recorded Confirmed finasteride 5 mg tablet 5 mg PO BID 11/21/22 02/19/23 Previous Rx's Medication Instructions Recorded blood pressure test kit-large #1 ea 10/02/21 fluticasone fur. 200 mcg-umeclid 1 inh inhalation DAILY 30 days #60 12/24/21 62.5 mcg-vilant 25 mcg ea inhalat.powder (Trelegy Ellipta) albuterol sulfate 1.25 mg/3 mL 1.25 mg (3 mL) continuous 09/10/22 solution for nebulization nebulization QID PRN shortness of breath or wheezing #90 mL fluticasone furoate 100 1 ea inhalation BID #60 ea 09/10/22 mcg-vilanterol 25 mcg/dose inhalation powder (Breo Ellipta) albuterol sulfate 90 mcg/actuation 2 puff inhalation Q6H PRN for 10/01/22 aerosol inhaler (Ventolin HFA) wheezing #18 ea aspirin 81 mg tablet,delayed 81 mg PO DAILY 90 days #90 tabs 10/13/22 release fluticasone propionate 50 1 spray intranasal DAILY #16 grams 11/05/22 mcg/actuation nasal spray,suspension omeprazole 40 mg capsule,delayed 20 mg (1/2 x 40 mg) PO DAILY 30 07/06/23 release days #30 caps enalapril maleate 20 mg tablet 20 mg PO DAILY #90 tabs 12/04/22 rosuvastatin 40 mg tablet 40 mg PO DAILY #90 tabs 12/15/22 metformin 500 mg tablet 250 mg (1/2 x 500 mg) PO DAILY 30 01/23/23 days #15 tabs doxazosin 4 mg tablet 4 mg PO DAILY 90 days #90 tabs 02/20/23 amlodipine 10 mg tablet 10 mg PO DAILY 90 days #90 tabs 02/23/23 tramadol 50 mg tablet 50 mg PO .QD-BID PRN severe pain 02/23/23 #30 tabs finasteride 5 mg tablet 5 mg PO DAILY 90 days #90 tabs 02/24/23 albuterol sulfate 0.63 mg/3 mL 0.63 mg (3 mL) inhalation QID PRN 03/15/23 solution for nebulization shortness of breath or wheezing #90 mL doxycycline hyclate 100 mg tablet 100 mg PO BID 7 days #14 tabs 03/15/23 prednisone 20 mg tablet 20 mg PO DAILY 7 days #7 tabs 03/15/23 Allergies Allergy/AdvReac Type Severity Reaction Status Date / Time No Known Allergies Allergy Verified 02/17/23 14:22 Review of Systems Constitutional: Constitutional: Reports no additional constitutional complaints, Denies chills, Denies fever(s) and Denies night sweats Eyes: Eyes: Reports no additional eye complaints, Denies blurry vision, Denies change in vision, Denies diplopia, Denies eye discharge, Denies loss of vision and Denies eye pain ENT: Denies dizziness Cardiovascular: Cardiovascular: Reports no additional cardiovascular complaints, Denies chest pain, Denies lightheadedness, Denies Loss of Consciousness and Denies dyspnea Respiratory: Respiratory: Reports no additional respiratory complaints, Reports cough and Denies dyspnea Gastrointestinal: Gastrointestinal: Reports no additional gastrointestinal complaints, Denies abdominal pain, Denies melena, Denies hematochezia, Denies change in bowel habits and Denies change in stool character Genitourinary: Genitourinary: Reports no additional male genitourinary complaints, Denies hematuria, Denies oliguria, Denies difficulty urinating, Denies dysuria, Denies urinary frequency, Denies urinary hesitancy, Denies urinary incontinence and Denies urinary urgency Musculoskeletal: Musculoskeletal: Reports no additional musculoskeletal complaints, Denies numbness and Denies tingling Neurologic: Denies dizziness, Denies loss of vision, Denies numbness and Denies tingling Psychiatric: Psychiatric: Reports no additional psychiatric complaints Endocrine: Endocrine: Reports no additional endocrine complaints Hematologic/Lymphatic: Hematologic/Lymphatic: Reports no additional hematologic/lymphatic complaints Allergic/Immunologic: Allergic/Immunologic: Reports no additional allergic/immunologic complaints PMFSH Past Medical History Attestation statement: The following information was validated with the patient. Source: old records reviewed and nursing notes reviewed Medical History Personal history of colonic polyps Pre-op chest exam Left knee pain Annual physical exam Obese Pulmonary nodules Asthma-COPD overlap syndrome Hiatal hernia Hiatal hernia Obesity (BMI 30-39.9) Benign essential hypertension Pure hypercholesterolemia Diabetes mellitus Coronary artery disease LUIS (obstructive sleep apnea) Chronic cough Degenerative disc disease Lung fibrosis Bronchial asthma HTN (hypertension) Surgical History Hx of prostate biopsy History of esophagogastroduodenoscopy (EGD) Hx of colonoscopy S/P arterial stent Social History Social History Housing: Apartment Alcohol intake: never Patient Tobacco Use Status: Never used Tobacco Smoked in Last 30 Days: No e-Cigarette/Vaping Use: Never Used Use of substances other than those prescribed or required for medical reasons: No Substance Use Type: Marijuana Advance Directives: No service: No Current occupational status: disabled Cognitive needs: No Hearing needs: No Vision needs: Yes Physical Exam Vital Signs: Vital Signs: Last Vital Signs Temp 98.1 F 03/15/23 17:10 Pulse 93 03/15/23 19:00 Resp 18 03/15/23 19:00 BP 135/75 03/15/23 19:00 Pulse Ox 93 03/15/23 19:00 O2 Del Method Room Air 03/15/23 19:00 BMI result Body Mass Index 35.4 Const: General: cooperative, no acute distress, alert and awake Nutritional Appearance: well nourished Orientation/consciousness: patient oriented x3 Limitations: no limitations HEENT: Head: Yes normal to inspection and Yes atraumatic Ears: hearing grossly normal bilaterally and external ears normal General nose exam: Normal external nose present, no nasal discharge noted and no epistaxis Face and sinus: Yes normal facial exam, No abrasion and No laceration Mouth: Normal oral and palatal mucosa present, no drooling and no muffled voice Eyes: General: appearance normal, both eyes and all related structures Periorbital: periorbital findings normal Eyelids: Yes eyelids normal Conjunctivae: conjunctivae normal Pupils: Equal, round and reactive pupils present EOM: EOMs intact bilaterally Neck: Neck: Yes normal visual inspection, Yes full ROM and Yes no lymphadenopathy Chest: Chest palpation & inspection: normal inspection of the chest Resp: Effort & Inspection: normal respiratory effort and able to speak in complete sentences Auscultation: clear to auscultation bilaterally Cardio: Rate: regular rate Rhythm: regular rhythm GI: Inspection: Yes normal to inspection Neuro: General: patient oriented x3 and moves all extremities Cranial nerves: Yes Equal, round and reactive pupils present Cognition (Neuro): normal cognition Motor exam (neuro): 5/5 motor strength present throughout Sensory Exam: Normal double simultaneous stimulation for sensation Coordination: [id number] test normal Extrem: General: Yes normal to inspection, Yes full ROM and Yes capillary refill normal Psych: Appearance: grossly normal Mental Status: mental status grossly normal Affect: normal affect Attitude: cooperative Thought process: Normal thought process present Thought content: Normal thought content present Insight: Good insight present (Psych) Course Course Course Narrative: RME performed by Yolanda Munguia PA-C. Patient is a 57 year old assigned male at presenting to the emergency department with a cough. Imaging and swabs ordered. Patient placed back in the waiting room pending room availability and results. Medical Decision Making Medical Decision Making MDM Narrative: Patient is a 57 year old assigned male at with a history of asthma and HTN presenting to the emergency department today with a cough. Patient's physical exam was unremarkable. Patient's COVID/Influenza/RSV swab was negative. Patient's chest x-ray showed no acute process. I explained my physical exam findings as well as all test results to the patient. I answered all questions asked by the patient. I stressed the importance of the patient taking his medication as prescribed. I stressed the importance of the patient following up with his primary care provider. I stressed the importance of the patient returning to the emergency department immediately if his symptoms were to worsen or if he were to develop any dizziness, shortness of breath, difficulty breathing, chest pain, blurry vision, loss of vision, nausea, vomiting, abdominal pain, fever, chills, back pain, or any other complaints. Patient verbalized agreement and understanding with this treatment plan and discharge. Differential Diagnosis Differential Diagnoses: The differential diagnosis associated with the presentation includes Bronchitis Asthma RSV COVID-19 Influenza Admission/Observation Consideration of admission/observation: Escalation of care including admission/observation considered Patient would have been admitted to the hospital had his work up had any findings where hospital admission was appropriate and his clinical presentation warranted hospital admission. Lab Data MDM Lab Attestation statement: I reviewed the patient's lab results. My interpretation of these studies and their corresponding values is that they are grossly normal. Labs: Lab Results 03/15/23 Range/Units 18:00 Influenza Type A (PCR) NEGATIVE (Negative) Influenza Type B (PCR) NEGATIVE (Negative) RSV RNA Qual (PCR) NEGATIVE (Negative) SARS-CoV-2 RNA (RT-PCR) NEGATIVE (Negative) Independent Interpretation I performed an independent interpretation of an: Plain X-Ray Interpretation: My interpretation is in agreement with the radiologist's impression of this imaging study. EXAMINATION: XR CHEST CLINICAL INFORMATION: Pain, coughing Technique; 2 views. COMPARISON: Laser Beam Cutter film from CT of 01/06/2023 chest film dated 04/29/2022 Findings; demonstrates bronchial wall thickening and ill-definition of the central hilar structures. In addition more confluent opacity in the infrahilar region on the right. Infiltrate is suspected. There is no effusion. Cardiac silhouette is within normal limits. XR/XR chest 2V IMPRESSION: Once again ill-defined central hilar bronchial structures suggest bronchial disease but in addition more confluent opacities in the infrahilar region on the right suggest infiltrate. Dictated By: Artur Obrien MD Signed By: Electronically signed by Artur Obrien MD 03/15/231822 Radiology Impression Discussion of test interpretation with radiology: I have reviewed the radiologist's reading. Prescription Management I considered prescription management with: Antibiotic (patient prescribed an antibiotic for bronchitis) Chronic Conditions Patient?s care impacted by: Hypertension Discharge Plan Discharge Clinical Impression: Bronchitis Patient Disposition: Home, Self-Care Instructions: Acute Bronchitis (ED) Additional Instructions: Follow up with your primary care provider. Return to the emergency department immediately if your symptoms worsen or if you develop any dizziness, shortness of breath, difficulty breathing, chest pain, blurry vision, loss of vision, nausea, vomiting, abdominal pain, fever, chills, back pain, or any other complaints. Norman un seguimiento con sanchez proveedor de atenci?n primaria. Regrese al departamento de emergencias inmediatamente si speedy s?ntomas empeoran o si presenta mareos, dificultad para respirar, dificultad para respirar, dolor en el pecho, visi?n borrosa, p?rdida de la visi?n, n?useas, v?mitos, dolor abdominal, fiebre, escalofr?os, dolor de espalda o cualquier otras quejas. Prescriptions: New prednisone 20 mg tablet 20 mg PO DAILY 7 Days Qty: 7 0RF doxycycline hyclate 100 mg tablet 100 mg PO BID 7 Days Qty: 14 0RF albuterol sulfate 0.63 mg/3 mL solution for nebulization 0.63 mg inhalation QID PRN (Reason: shortness of breath or wheezing) Qty: 90 0RF No Action fluticasone furoate-vilanterol [Breo Ellipta] 100-25 mcg/dose blister with device 1 ea inhalation BID Qty: 60 2RF albuterol sulfate 1.25 mg/3 mL solution for nebulization 1.25 mg continuous nebulization QID PRN (Reason: shortness of breath or wheezing) Qty: 90 5RF Rx Instructions: diagnosis code acute asthma exacerbation albuterol sulfate [Ventolin HFA] 90 mcg/actuation HFA aerosol inhaler 2 puff inhalation Q6H PRN (Reason: for wheezing) Qty: 18 0RF fluticasone propionate 50 mcg/actuation spray,suspension 1 spray intranasal DAILY Qty: 16 3RF enalapril maleate 20 mg tablet 20 mg PO DAILY Qty: 90 1RF rosuvastatin 40 mg tablet 40 mg PO DAILY Qty: 90 3RF metformin 500 mg tablet 250 mg PO DAILY 30 Days Qty: 15 3RF doxazosin 4 mg tablet 4 mg PO DAILY 90 Days Qty: 90 1RF amlodipine 10 mg tablet 10 mg PO DAILY 90 Days Qty: 90 1RF tramadol 50 mg tablet 50 mg PO .QD-BID PRN (Reason: severe pain) Qty: 30 0RF finasteride 5 mg tablet 5 mg PO DAILY 90 Days Qty: 90 1RF omeprazole 40 mg capsule,delayed release(DR/EC) 20 mg PO DAILY 30 Days Qty: 30 1RF Rx Instructions: Take 30 mins before meals Trelegy Ellipta 200-62.5-25 mcg blister with device 1 inh inhalation DAILY 30 Days Qty: 60 12RF (DME) blood pressure test kit-large Kit See Rx Instructions .Route Qty: 1 0RF Rx Instructions: As directed aspirin 81 mg tablet,delayed release (DR/EC) 81 mg PO DAILY 90 Days Qty: 90 3RF finasteride 5 mg tablet 5 mg PO BID Referrals: Clayton Raza MD [Primary Care Provider] - Interventions: ED Discharge Assessment Last Done: 03/15/23 19:01 Discharge Date/Time: 03/15/23 19:02 Print Language: Mozambican
[2023-03-15 18:41] LABS: Influenza A PCR NEGATIVE (Negative); Influenza B PCR NEGATIVE (Negative); Resp Syncy Virus RNA Qual PCR NEGATIVE (Negative); SARS COV2 PCR INHOUSE NEGATIVE (Negative)
[2023-03-15 19:00] VITALS: BP 135/75; PULSE 93; RESP 18; O2SAT 93
== END 2023-03-15 19:02 | disposition home or self-care (01) ==
PROVIDERS: Physician Assistant Medical; Emergency Provider Student in an Organized Health Care Education/Training Program; PCP Internal Medicine
DX: J40 Bronchitis, not specified as acute or chronic (principal); R06.02 Shortness of breath; I10 Essential (primary) hypertension; Z20.822 Contact with and (suspected) exposure to COVID-19; Z20.828 Contact with and (suspected) exposure to other viral communicable diseases; Z79.899 Other long term (current) drug therapy
CPT/HCPCS: 0241U; 71046; 99284

== ENCOUNTER 2023-03-18 16:23 | Inpatient (IN) | payer MEDICARE, MEDICAID, SELFPAY ==
--- NOTE | ~2023-03-18 | XR_ITS ---
EXAMINATION: XR chest 2V CLINICAL INFORMATION: Reason for Exam cough, sob COMPARISON: 03/15/2023 TECHNIQUE: XR chest 2V, 2 Views Lungs and Marilynn: Redemonstration of mild bilateral parahilar interstitial infiltrates unchanged from prior exam. No dense lobar consolidation lobar pneumonia Pleura: Normal. Costophrenic angles are sharp. No pneumothorax. Heart: The heart is normal in size. Mediastinum: The mediastinum is within normal limits.. Bones: Skeletal structures included are normal for patient's age. XR/XR chest 2V IMPRESSION: * Redemonstration of mild bilateral parahilar interstitial infiltrates unchanged. * No dense lobar consolidation pneumonia or pleural effusion.
[2023-03-18 16:25] VITALS: BP 142/78; PULSE 103; RESP 24; TEMP 37.2; O2SAT 88; BMI 35.4
--- NOTE | 2023-03-18 16:25 | ED_ITS ---
HPI - Asthma General Chief Complaint: Dyspnea Stated Complaint: asthma / seen on thursday Time Seen by Provider: 03/18/23 16:45 History of Present Illness HPI Narrative: Patient is a 57-year-old male who presents emergency department for evaluation of shortness of breath and a dry nonproductive cough. He reports past medical history of asthma, he states that he was seen in the emergency department a few days ago for similar symptoms, is discharged home with prednisone, doxycycline, and an inhaler but he states his symptoms are much worse. he denies fevers, chills, headache, neck pain, chest pain, nausea, vomiting, abdominal pain, numbness or tingling of the extremities, weakness. denies personal history of DVT/ PE, lower extremity pain, swelling, tenderness. Related Data Home Medications Medication Instructions Recorded Confirmed fluticasone propionate 50 1 spray intranasal DAILY PRN 03/18/23 03/18/23 mcg/actuation nasal Congestion spray,suspension tramadol 50 mg tablet 50 mg PO BID PRN severe pain 03/18/23 03/18/23 Previous Rx's Medication Instructions Recorded blood pressure test kit-large #1 ea 10/02/21 aspirin 81 mg tablet,delayed 81 mg PO DAILY 90 days #90 tabs 10/13/22 release rosuvastatin 40 mg tablet 40 mg PO DAILY #90 tabs 12/15/22 metformin 500 mg tablet 250 mg (1/2 x 500 mg) PO DAILY 30 01/23/23 days #15 tabs doxazosin 4 mg tablet 4 mg PO DAILY 90 days #90 tabs 02/20/23 amlodipine 10 mg tablet 10 mg PO DAILY 90 days #90 tabs 02/23/23 finasteride 5 mg tablet 5 mg PO DAILY 90 days #90 tabs 02/24/23 doxycycline hyclate 100 mg tablet 100 mg PO BID 7 days #14 tabs 03/15/23 prednisone 20 mg tablet 20 mg PO DAILY 7 days #7 tabs 03/15/23 albuterol sulfate 0.63 mg/3 mL 0.63 mg (3 mL) inhalation Q4H PRN 03/16/23 solution for nebulization shortness of breath or wheezing #75 mL albuterol sulfate 90 mcg/actuation 2 puff inhalation Q6H PRN for 03/16/23 aerosol inhaler (Ventolin HFA) wheezing #18 ea enalapril maleate 20 mg tablet 20 mg PO DAILY #90 tabs 03/16/23 Allergies Allergy/AdvReac Type Severity Reaction Status Date / Time No Known Allergies Allergy Verified 02/17/23 14:22 [facility] Past Medical History Medical History Personal history of colonic polyps Pre-op chest exam Left knee pain Annual physical exam Obese Pulmonary nodules Asthma-COPD overlap syndrome Hiatal hernia Hiatal hernia Obesity (BMI 30-39.9) Benign essential hypertension Pure hypercholesterolemia Diabetes mellitus Coronary artery disease LUIS (obstructive sleep apnea) Chronic cough Degenerative disc disease Lung fibrosis Bronchial asthma HTN (hypertension) Surgical History Hx of prostate biopsy History of esophagogastroduodenoscopy (EGD) Hx of colonoscopy S/P arterial stent Social History Social History Housing: Apartment Alcohol intake: never Patient Tobacco Use Status: Never used Tobacco e-Cigarette/Vaping Use: Never Used Substance Use Type: Marijuana service: No Current occupational status: disabled Cognitive needs: No Hearing needs: No Vision needs: Yes Physical Exam 2 Vital Signs: Vital Signs: Last Vital Signs Temp 97 F 03/19/23 00:00 Pulse 77 03/19/23 00:00 Resp 18 03/19/23 00:00 BP 110/58 L 03/19/23 00:00 Pulse Ox 93 03/19/23 00:00 O2 Del Method Room Air 03/19/23 00:00 BMI result Body Mass Index 35.4 Appearance: Alert.?Oriented to person, place and time. No acute distress.?Normal affect. Eyes: Pupils equal, round and reactive to light.? ENT: Pharynx normal.?? Neck: Normal inspection.? Neck supple.?? CVS: Heart sounds normal. Normal heart rate and rhythm.? Pulses normal.?? Respiratory: No respiratory distress.? Lung sounds are rhonchorous bilaterally with inspiratory and expiratory wheezing Abdomen: Soft and non-tender. Normoactive bowel sounds. No pulsatile mass.?? Skin: Skin warm and dry.? Normal skin color.? Extremities: No lower extremity edema.? No calf ttp? Neuro: Moves all extremities spontaneously. Sensation intact bilaterally. CN II- XII intact. No focal neuro deficits. Ambulates with normal steady gait. Course Course Course Narrative: RME: 57yo M w/PMHx asthma, HTN, DM, CAD on ASA, LUIS, recently seen and d/c'd from our ED on 03/15/23 for Bronchitis Rx Prednisone, Doxy & inhaler c/o continued SOB & dry cough. Denies fever, CP, pedal edema 89% after ambulating into triage, 90-92% on RA at rest, EKG, labs, Viral testing, CXR, ED bronch protocol ordered Full HPI, ROS and PE to be performed by primary ED provider. Reevaluation(s) Reevaluation #1: received call from lab, lactic acid 2.1, likely secondary to recent albuterol administration, not sepsis Time: 18:02 Reevaluation #2: minimal improvement in symptoms and physical examination after albuterol a of Solu-Medrol were in magnesium. Review room air hypoxia on exertion, patient has been noted to hospital service, accepting physician Dr. Muniz for Asthma/COPD exacerbation. Medications Administered Generic Name Dose Route Start Last Admin Trade Name Freq PRN Reason Stop Dose Admin Acetaminophen 650 mg 03/18/23 19:35 03/18/23 21:22 Acetaminophen 325 Mg Tablet PO 650 mg Q6H PRN Administration Pain, Mild (Pain Scale 1-3) Albuterol/Ipratropium 3 ml 03/18/23 20:00 03/18/23 21:45 Albuterol/Iprat 2.5/0.5mg 3 Ml Ampul.Neb INHALE 3 ml RQ4H WHILE AWAKE KELLI Administration Enoxaparin Sodium 40 mg 03/18/23 20:00 03/18/23 20:13 Enoxaparin Sodium 40 Mg/0.4 Ml Syringe SUBCUT 40 mg Q24H KELLI Administration Azithromycin 500 mg/ Sodium 250 mls @ 125 mls/hr 03/18/23 21:00 03/18/23 23:24 Chloride IV Infused Q24H KELLI Infusion Insulin Human Lispro 0 unit 03/18/23 21:00 03/18/23 21:12 Insulin Lispro 100 Unit/Ml 3 Ml Vial SUBCUT Not Given QIDACHS KELLI Protocol Melatonin 6 mg 03/18/23 19:35 03/18/23 21:24 Melatonin 3 Mg Tablet PO 6 mg BEDTIME PRN Administration Insomnia Sodium Chloride 3 ml 03/19/23 00:00 03/19/23 00:26 0.9 % Sodium Chloride Flush 3 Ml Syringe IVFLUSH 3 ml QSHIFT KELLI Administration Discontinued Medications Generic Name Dose Route Start Last Admin Trade Name Freq PRN Reason Stop Dose Admin Albuterol Sulfate 2.5 mg 03/18/23 16:52 03/18/23 16:53 Albuterol Sulfate (0.083%) 2.5 Mg/3 Ml Vial.Neb INHALE 03/18/23 16:53 2.5 mg ONCE ONE Administration Albuterol Sulfate 5 mg/ 0 mg 03/18/23 16:40 03/18/23 16:46 Albuterol/Ipratropium 3 ml INHALE 03/18/23 16:41 1 each ONCE ONE Administration Magnesium Sulfate 2 gm in 50 mls @ 25 mls/hr 03/18/23 17:51 03/18/23 18:39 Magnesium Sulfate/H2o IV 03/18/23 19:50 Infused ONCE ONE Infusion Ceftriaxone Sodium 1 gm/ 50 mls @ 100 mls/hr 03/18/23 18:06 03/18/23 19:27 Sodium Chloride IV 03/18/23 18:35 Infused ONCE ONE Infusion Methylprednisolone Sodium Succinate 80 mg 03/18/23 16:54 03/18/23 17:25 Methylprednisolone Sod Succ 125 Mg/2 Ml Vial IVPUSH 03/18/23 16:55 80 mg ONCE ONE Administration Medical Decision Making Medical Decision Making MDM Narrative: patient is a 57-year-old male with past medical history of asthma/COPD overlap, pulmonary fibrosis, hypertension, diabetes, CAD on ASA, LUIS, prostate CA received first radiation treatment yesterday through [facility], presenting to emergency department for evaluation of shortness of breath and cough as per HPI. Patient was seen in the emergency department 03/15/2023 diagnosed with bronchitis and discharged home on prednisone 20 mg daily, doxycycline, and provided with albuterol solution for nebulization. Despite this use at home he continues to have persistent cough and difficulty breathing. Upon arrival to the emergency department his O2 saturation was 89% after ambulating to triage room, it did increase to 90-92% while at rest, Lung sounds are rhonchorous bilaterally with inspiratory and expiratory wheezing. Meeting SIRS criteria, blood cultures and lactic acid were obtained, will cover with Rocephin IV for possible PNA, suspect acute asthma exacerbation, plan to obtain CXR, EKG and labs for further evaluation, ED Bronchodilator protocol, solumedrol 80mg IV as he has already taken PO dosing today. Differential Diagnosis Differential Diagnoses: The differential diagnosis associated with the presentation includes Admission/Observation Consideration of admission/observation: Escalation of care including admission/observation considered Consult Healthcare Provider Management of the patient was discussed with: Hospitalist Lab Data MDM Lab Attestation statement: I reviewed the patient's lab results. CBC is without leukocytosis or anemia. right CMP is overall unremarkable. BNP within normal limits. High sensitive troponin nondetectable. 03/18/23 17:22 03/18/23 17:23 Labs: Lab Results 03/18/23 03/18/23 Range/Units 17:22 17:23 WBC 6.5 (4.8-10.8) X10*3/uL RBC 5.27 (4.60-5.80) X10*6/uL Hgb 15.9 (14.0-18.0) g/dl Hct 49.1 (42.0-52.0) % MCV 93.2 (80.0-98.0) fL MCH 30.2 (27.0-33.0) pg MCHC 32.4 (31.0-36.0) g/dl RDW 15.4 (11.0-16.0) % Plt Count 239 (160-400) X10*3/uL MPV 9.4 (9.4-12.4) fL Immature Gran % (Auto) 0.3 (0.0-0.4) % Neut % (Auto) 85.1 H (45-73) % Lymph % (Auto) 10.2 L (20-40) % [place] % (Auto) 4.2 (2-11) % Eos % (Auto) 0.0 (0-4) % Baso % (Auto) 0.2 (0-2) % Lymph # (Auto) 0.7 L (1.2-4.9) X10*3/uL [place] # (Auto) 0.3 (0.1-1.2) X10*3/uL Eos # (Auto) 0.0 (0.0-0.4) X10*3/uL Baso # (Auto) 0.0 (0.0-0.2) X10*3/uL Abs Immat Gran (auto) 0.02 (0.00-0.03) X10*3/uL Absolute Neuts (auto) 5.5 (2.0-8.3) x10*3/uL Absolute Nucleated RBC 0.000 (0.0-0.012) X10*3/uL Nucleated RBC % (auto) 0.0 (0.0-0.2) /100WBC Sodium 141 (135-145) mmol/L Potassium 4.3 (3.3-5.1) mmol/L Chloride 104 (96-108) mmol/L Carbon Dioxide 27 (22-29) mmol/L Anion Gap 14 (12-20) BUN 12 (9-16) mg/dL Creatinine 0.81 (0.5-1.4) mg/dL Estim Creat Clear Calc 124.5 Estimated GFR > 60 Random Glucose 110 (60-115) mg/dL Lactic Acid 2.1 H* (0.5-2.0) mmol/L Calcium 9.8 D (8.4-10.2) mg/dL Magnesium 1.7 (1.6-2.6) mg/dL Total Bilirubin 0.4 (0.0-1.0) mg/dL Direct Bilirubin 0.2 (0.0-0.5) mg/dL AST 33 (5-37) U/L ALT 40 (0-40) U/L Alkaline Phosphatase 64 (39-117) U/L Troponin I High Sens < 2.7 (<3.5-35.0) ng/L B-Natriuretic Peptide 12 (<100) pg/mL Total Protein 7.9 (6.5-8.0) g/dL Albumin 4.6 (3.5-5.0) g/dL COVID-19 (LORRI) Negative (Negative) COVID-19 Clin Com See Note Influenza Type A (EZEQUIEL) Negative (Negative) Influenza Type B (EZEQUIEL) Negative (Negative) Influenza A & B Note See Note Independent Interpretation I performed an independent interpretation of an: EKG and Plain X-Ray ( I personally interpreted chest x-ray and agree with radiologist impression) Interpretation: Rate:93 Rhythm:? normal sinus rhythm [place]:? normal Normal P waves.? Normal MARCUS.?? Normal QRS complex.?? ST T wave :?? no ST elevation, no ST depression, qTC:432 prior studies:? April 2022 The study has been interpreted contemporaneously by me. Radiology Impression Discussion of test interpretation with radiology: I have reviewed the radiologist's reading. Radiologist Impression: XR/XR chest 2V IMPRESSION: * Redemonstration of mild bilateral parahilar interstitial infiltrates unchanged. * No dense lobar consolidation pneumonia or pleural effusion. Discharge Plan Discharge Clinical Impression: Asthma Patient Disposition: Admitted as Observation Interventions: Admission Worksheet (ED) Last Done: 03/18/23 20:31 Discharge Date/Time: 03/18/23 20:36
--- NOTE | 2023-03-18 16:27 | ECG_ITS ---
Test Reason : SOB Blood Pressure : / mmHG Vent. Rate : 093 BPM Atrial Rate : 093 BPM P-R Int : 132 ms QRS Dur : 082 ms QT Int : 348 ms P-R-T Axes : 078 052 037 degrees QTc Int : 432 ms Normal sinus rhythm Normal ECG When compared with ECG of 29-APR-2022 17:21, No significant change was found Referred By: Jenny Martins Electronically Signed By:BAKARI SWIFT MD
[2023-03-18] MEDS: Albuterol Sulfate 5 MG, Albuterol/Iprat 2.5/0.5MG 3 ML 3 ML INHALE (16:46)
[2023-03-18 16:50] VITALS: BP 150/76; PULSE 97; RESP 20; O2SAT 97
[2023-03-18] MEDS: Albuterol Sulfate (0.083%) 2.5 MG/3 ML VIAL.NEB INHALE (16:53)
[2023-03-18 16:56] VITALS: PULSE 96; RESP 26; O2SAT 95
[2023-03-18] MEDS: methylPREDNISolone Sod Succ 125 MG/2 ML VIAL 80 MG IVPUSH (17:25)
[2023-03-18 17:30] LABS: MANUAL DIFF FLAG NO
[2023-03-18 17:32] LABS: Basophils Percent Auto 0.2 % (0-2); Hematocrit 49.1 % (42.0-52.0); Hemoglobin 15.9 g/dl (14.0-18.0); Imm Gran Abs Auto 0.02 X10*3/uL (0.00-0.03); Imm Gran Pct Auto 0.3 % (0.0-0.4); Lymphocytes Absolute Auto 0.7 X10*3/uL (1.2-4.9); Lymphocytes Percent Auto 10.2 % (20-40); Mean Corpuscular HGB Conc 32.4 g/dl (31.0-36.0); Mean Corpuscular Hemoglobin 30.2 pg (27.0-33.0); Mean Corpuscular Volume 93.2 fL (80.0-98.0); Mean Platelet Volume 9.4 fL (9.4-12.4); Monocytes Absolute Auto 0.3 X10*3/uL (0.1-1.2); Monocytes Percent Auto 4.2 % (2-11); Neutrophils Absolute Auto 5.5 x10*3/uL (2.0-8.3); Neutrophils Percent Auto 85.1 % (45-73); Platelet Count 239 X10*3/uL (160-400); Red Blood Count 5.27 X10*6/uL (4.60-5.80); Red Cell Distribution Width 15.4 % (11.0-16.0); White Blood Count 6.5 X10*3/uL (4.8-10.8)
[2023-03-18 17:57] LABS: Magnesium 1.7 mg/dL (1.6-2.6)
[2023-03-18 17:58] LABS: Alanine Aminotransferase 40 U/L (0-40); Albumin Level 4.6 g/dL (3.5-5.0); Alkaline Phosphatase 64 U/L (39-117); Anion Gap 14 (12-20); Aspartate Amino Transferase 33 U/L (5-37); Bilirubin Direct 0.2 mg/dL (0.0-0.5); Bilirubin Total 0.4 mg/dL (0.0-1.0); Blood Urea Nitrogen 12 mg/dL (9-16); Calcium 9.8 mg/dL (8.4-10.2); Carbon Dioxide 27 mmol/L (22-29); Chloride 104 mmol/L (96-108); Creatinine Clr Calc Pharmacy 124.5; Estimated Glomerular Filt Rate > 60; Glucose Random 110 mg/dL (60-115); Potassium 4.3 mmol/L (3.3-5.1); Sodium 141 mmol/L (135-145); Total Protein 7.9 g/dL (6.5-8.0)
[2023-03-18 18:00] VITALS: BP 124/73; PULSE 87; RESP 20; O2SAT 95
[2023-03-18 18:02] LABS: Lactic Acid 2.1 mmol/L (0.5-2.0)
[2023-03-18 18:03] LABS: B Type Natriuretic Peptide 12 pg/mL (<100)
[2023-03-18 18:12] LABS: COVID-19 Test Negative (Negative); IDNOW Serial# 08D9AD1C; Troponin-I High Sensitivity < 2.7 ng/L (<3.5-35.0)
[2023-03-18 18:13] LABS: IDNOW Serial# BCCEAD1C; Influenza A Negative (Negative); Influenza B2 Negative (Negative)
[2023-03-18] MEDS: Magnesium Sulfate/H2O 2 GM/50 ML PIGGYBACK IV (18:13)
[2023-03-18] MEDS: cefTRIAXone sodium 1 GM in 0.9 % Sodium Chloride 50 ML IV (18:38)
--- NOTE | 2023-03-18 19:12 | PC.NURSE ---
Addendum entered by Flip Jurado RN 03/18/23 19:15: Interprester used for communication given language barrier. Original Note: Assumed care of pt. Pt lying on sgtretcher, no acute distress at this time. Assisted with repositioning pt for more upright seated position to ease respiratory difficulty. Pt verbalized understanding of plan of care for possible admission for asthma exaccerbation.
[2023-03-18 19:28] LABS: Reflex Lactate? Lactic Acid Added
--- NOTE | 2023-03-18 19:37 | P.HPHOSP_ITS ---
History of Present Illness Date of Service: 03/18/23 Chief Complaint: Dyspnea This is a 57-year-old male with pertinent history of prostate cancer on radiotherapy, LUIS noncompliant with CPAP, essential hypertension, itv-zdfmqlr-hrtlciigi diabetes mellitus, mixed hyperlipidemia who presents to the emergency department for evaluation of dyspnea. History obtained with the help of medicine aide. Patient was seen in the ER on 03/15 and was discharged on p.o. steroids. Patient states he continued having symptoms and hence presented to present to the ER. His symptoms started about 4 days prior to presentation. It included nonproductive cough, wheezing and dyspnea which was worse with exertion. Patient had radiation on the day of presentation for prostate cancer. He states he has CPAP at home but is noncompliant. Does not smoke cigarettes. No fever, chills, chest discomfort, palpitations, abdominal pain, changes in urinary or bowel habits. In the emergency department, patient with continued wheezing despite multiple DuoNeb treatments Review of Systems 2 Constitutional: Constitutional: Reports no additional constitutional complaints Cardiovascular: Cardiovascular: Reports dyspnea on exertion Respiratory: Respiratory: Reports cough, Reports dyspnea on exertion and Reports wheezing Gastrointestinal: Gastrointestinal: Reports no additional gastrointestinal complaints Genitourinary: Genitourinary: Reports no additional male genitourinary complaints Allergic/Immunologic: Allergic/Immunologic: Reports wheezing [facility] Medical History Personal history of colonic polyps Pre-op chest exam Left knee pain Annual physical exam Obese Pulmonary nodules Asthma-COPD overlap syndrome Hiatal hernia Hiatal hernia Obesity (BMI 30-39.9) Benign essential hypertension Pure hypercholesterolemia Diabetes mellitus Coronary artery disease LUIS (obstructive sleep apnea) Chronic cough Degenerative disc disease Lung fibrosis Bronchial asthma HTN (hypertension) Surgical History Hx of prostate biopsy History of esophagogastroduodenoscopy (EGD) Hx of colonoscopy S/P arterial stent Social History Housing: Apartment Alcohol intake: never Patient Tobacco Use Status: Never used Tobacco e-Cigarette/Vaping Use: Never Used Substance Use Type: Marijuana Advance Directives: No Nutrition Risks: No Nutritional Risk service: No Current occupational status: disabled Cognitive needs: No Hearing needs: No Vision needs: Yes Meds Allergies Allergy/AdvReac Type Severity Reaction Status Date / Time No Known Allergies Allergy Verified 02/17/23 14:22 Active Medications: Current Medications Magnesium Sulfate (Magnesium Sulfate/H2o) 2 gm in 50 mls @ 25 mls/hr IV ONCE ONE Stop: 03/18/23 19:50 Last Infusion: 03/18/23 18:39 Dose: Infused Home Medications Medication Instructions Recorded Confirmed Last Taken Type fluticasone propionate 50 1 spray intranasal DAILY PRN 03/18/23 03/18/23 Unknown History mcg/actuation nasal Congestion spray,suspension tramadol 50 mg tablet 50 mg PO BID PRN severe pain 03/18/23 03/18/23 Unknown History Physical Exam 2 Vital Signs and Narrative: Vital Signs: Last Vital Signs Temp 98.9 F 03/18/23 16:25 Pulse 87 03/18/23 18:00 Resp 20 03/18/23 18:00 BP 124/73 03/18/23 18:00 Pulse Ox 95 03/18/23 18:00 O2 Del Method Room Air 03/18/23 18:00 BMI result Body Mass Index 35.4 Middle-aged male lying in bed in no distress Neck supple, no JVD Regular rate and rhythm, S1-S2 heard Bilateral wheezing without crackles Abdomen soft nontender, no guarding, no rigidity Patient is awake, alert and oriented to self, place, time and person ; no focal motor deficit Psych: Normal mood No pedal edema Results Labs 03/18/23 17:22 03/18/23 17:23 Labs: Laboratory Results - last 24 hr 03/18/23 03/18/23 17:22 17:23 MCV 93.2 MCH 30.2 MCHC 32.4 RDW 15.4 Plt Count 239 MPV 9.4 Immature Gran % (Auto) 0.3 Neut % (Auto) 85.1 H Lymph % (Auto) 10.2 L [place] % (Auto) 4.2 Eos % (Auto) 0.0 Baso % (Auto) 0.2 Lymph # (Auto) 0.7 L [place] # (Auto) 0.3 Eos # (Auto) 0.0 Baso # (Auto) 0.0 Abs Immat Gran (auto) 0.02 Absolute Neuts (auto) 5.5 Absolute Nucleated RBC 0.000 Nucleated RBC % (auto) 0.0 Anion Gap 14 Estim Creat Clear Calc 124.5 Estimated GFR > 60 Random Glucose 110 Lactic Acid 2.1 H* Calcium 9.8 D Magnesium 1.7 Total Bilirubin 0.4 Direct Bilirubin 0.2 AST 33 ALT 40 Alkaline Phosphatase 64 B-Natriuretic Peptide 12 Total Protein 7.9 Albumin 4.6 COVID-19 (LORRI) Negative COVID-19 Clin Com See Note Influenza Type A (EZEQUIEL) Negative Influenza Type B (EZEQUIEL) Negative Influenza A & B Note See Note Imaging Radiologist's Impressions: Impressions Chest X-Ray 03/18/23 17:08 IMPRESSION: * Redemonstration of mild bilateral parahilar interstitial infiltrates unchanged. * No dense lobar consolidation pneumonia or pleural effusion. Assessment and Plan (1) Acute respiratory distress: Status: Acute Plan This is a 57-year-old male with pertinent history of prostate cancer on radiotherapy, LUIS noncompliant with CPAP, essential hypertension, ghi-fblpiyn-udbxlscxa diabetes mellitus, mixed hyperlipidemia who presents to the emergency department for evaluation of dyspnea. #. Acute respiratory distress due to acute exacerbation of asthma/COPD overlap syndrome: Will admit patient and initiate IV steroids. Scheduled and p.r.n. DuoNebs. Continue home inhaler. Initiating azithromycin for pleiotropic effect. #. Acute lactic acidosis due to albuterol use. No sepsis #. LUIS: Noncompliant with CPAP #. Essential hypertension: Continue amlodipine and DAVID-inhibitor #. Gwm-mqhobvf-gxgcpahxp diabetes mellitus: Initiating Accu-Cheks with sliding scale insulin #. Mixed hyperlipidemia: On statin DVT prophylaxis: [employer] Quality Stroke Does the patient have a stroke diagnosis?: No VTE Prior VTE?: No VTE Risk Level:: Medical - moderate - high VTE Device Contraindication: Treatment Not Indicated VTE Drug Contraindication: N/A - Med Ordered
[2023-03-18 19:51] VITALS: BP 145/82; PULSE 79; RESP 18; TEMP 36.6; O2SAT 94
--- NOTE | 2023-03-18 19:52 | PHA.MEDREC ---
Pharmacy Consult ? Medication Reconciliation Pharmacy has completed the medication reconciliation. Patient's reported medications. Angela Leonardo, NoniD
[2023-03-18 20:06] LABS: ~Lactic Acid-LAB USE ONLY 2.4 mmol/L (0.5-2.0)
[2023-03-18] MEDS: Enoxaparin Sodium 40 MG/0.4 ML SYRINGE SUBCUT (20:13)
[2023-03-18 20:53] VITALS: BMI 35.1
[2023-03-18 20:55] LABS: Glucose, Whole Blood 137 mg/dL (60-115)
[2023-03-18] MEDS: Azithromycin 500 MG in 0.9 % Sodium Chloride 250 ML 125 MG IV (21:17)
[2023-03-18] MEDS: Acetaminophen 325 MG TABLET 650 MG PO (21:22)
[2023-03-18] MEDS: Melatonin 3 MG TABLET 6 MG PO (21:24)
[2023-03-18] MEDS: Albuterol/Iprat 2.5/0.5MG 3 ML AMPUL.NEB INHALE (21:45)
[2023-03-18 21:47] VITALS: PULSE 82; RESP 18; O2SAT 92
[2023-03-18 21:52] LABS: Reflex Lactate? 2 Y
[2023-03-18 22:31] LABS: ~Lactic Acid-LAB USE ONLY 2.6 mmol/L (0.5-2.0)
[2023-03-19] VITALS (13 sets, daily range): BP systolic 110–147; BP diastolic 58–70; PULSE 63–97; RESP 12–20; TEMP 36–36.6; O2SAT 91–95
[2023-03-19] MEDS: 0.9 % Sodium Chloride Flush 3 ML SYRINGE IVFLUSH ×4 (00:26→20:19)
[2023-03-19] MEDS: Acetaminophen 325 MG TABLET 650 MG PO (04:49)
[2023-03-19] MEDS: methylPREDNISolone Sod Succ 40 MG/ML VIAL IVPUSH ×2 (04:49→17:06)
[2023-03-19] MEDS: Albuterol/Iprat 2.5/0.5MG 3 ML AMPUL.NEB INHALE ×5 (05:56→20:28)
[2023-03-19 06:15] LABS: MANUAL DIFF FLAG NO
[2023-03-19 06:19] LABS: Basophils Percent Auto 0.1 % (0-2); Hemoglobin 15.3 g/dl (14.0-18.0); Imm Gran Abs Auto 0.02 X10*3/uL (0.00-0.03); Imm Gran Pct Auto 0.2 % (0.0-0.4); Lymphocytes Absolute Auto 0.8 X10*3/uL (1.2-4.9); Lymphocytes Percent Auto 9.7 % (20-40); Mean Corpuscular Volume 91.3 fL (80.0-98.0); Mean Platelet Volume 10.7 fL (9.4-12.4); Monocytes Absolute Auto 0.3 X10*3/uL (0.1-1.2); Monocytes Percent Auto 3.4 % (2-11); Neutrophils Percent Auto 86.6 % (45-73); Platelet Count 232 X10*3/uL (160-400); Red Blood Count 4.93 X10*6/uL (4.60-5.80); Red Cell Distribution Width 14.9 % (11.0-16.0); White Blood Count 8.1 X10*3/uL (4.8-10.8)
[2023-03-19 06:34] LABS: Anion Gap 13 (12-20); Blood Urea Nitrogen 11 mg/dL (9-16); Calcium 9.4 mg/dL (8.4-10.2); Carbon Dioxide 27 mmol/L (22-29); Chloride 104 mmol/L (96-108); Creatinine Clr Calc Pharmacy 135.7; Estimated Glomerular Filt Rate > 60; Glucose Random 119 mg/dL (60-115); Potassium 4.2 mmol/L (3.3-5.1); Sodium 140 mmol/L (135-145)
[2023-03-19 08:02] LABS: Glucose, Whole Blood 127 mg/dL (60-115)
[2023-03-19] MEDS: Aspirin Enteric Coated 81 MG TABLET.DR PO (08:15)
[2023-03-19] MEDS: Doxazosin Mesylate 2 MG TABLET 4 MG PO (08:15)
[2023-03-19] MEDS: Finasteride 5 MG TABLET PO (08:16)
[2023-03-19] MEDS: Enalapril Maleate 10 MG TABLET 20 MG PO (08:16)
[2023-03-19] MEDS: Atorvastatin Calcium 80 MG TABLET 40 MG PO (08:16)
[2023-03-19] MEDS: amLODIPine Besylate 10 MG TABLET PO (08:16)
[2023-03-19] MEDS: metFORMIN HCl 500 MG TABLET 250 MG PO (08:16)
--- NOTE | 2023-03-19 09:58 | MHC.CM.PN ---
has changed pt status from OBS to INPT. The IMM was given 03/19/23.
[2023-03-19 11:11] LABS: Glucose, Whole Blood 119 mg/dL (60-115)
--- NOTE | 2023-03-19 15:11 | HO.PM.IMPN ---
Subjective Subjective Date of Service: 03/19/23 Interval History: seen and evaluated feels mildly better but still dyspneic at rest and with minimal exertion No fever or chills Review of Systems Review of Systems: Yes all other systems are reviewed and are negative Physical Exam Vital Signs: Vital Signs: Last Vital Signs Temp 97.8 F 03/19/23 15:01 Pulse 97 03/19/23 15:01 Resp 20 03/19/23 15:01 BP 130/63 03/19/23 15:01 Pulse Ox 92 03/19/23 15:01 O2 Del Method Room Air 03/19/23 15:01 BMI result Body Mass Index 35.1 Const: Other: Constitutional : Awake, interactive, in mild respiratory distress distress Neck : Normal inspection, Supple Cardiovascular : RRR, no JVP, no lower extremity edema Respiratory : good bilateral air entry, no crackles, scattered expiratory wheezes and ronchi Gastrointestinal: soft, lax, Normal bowel sounds, Non tender Skin : Warm, Dry Neurological : Alert & oriented x3, No focal deficit Objective Data Active Medications Acetaminophen (Acetaminophen 325 Mg Tablet) 650 mg PO Q6H PRN PRN Reason: Pain, Mild (Pain Scale 1-3) Last Admin: 03/19/23 04:49 Dose: 650 mg Documented By: MERLE Albuterol/Ipratropium (Albuterol/Iprat 2.5/0.5mg 3 Ml Ampul.Neb) 3 ml INHALE RQ4H WHILE AWAKE [facility] Last Admin: 03/19/23 11:19 Dose: 3 ml Documented By: TAMIKO Albuterol/Ipratropium (Albuterol/Iprat 2.5/0.5mg 3 Ml Ampul.Neb) 3 ml INHALE Q4H PRN PRN Reason: Wheezing Last Admin: 03/19/23 05:56 Dose: 3 ml Documented By: RASHEEDA Amlodipine Besylate (Amlodipine Besylate 10 Mg Tablet) 10 mg PO DAILY [facility]; Protocol Last Admin: 03/19/23 08:16 Dose: 10 mg Documented By: ROBERT Aspirin (Aspirin Enteric Coated 81 Mg Tablet.) 81 mg PO DAILY [facility] Last Admin: 03/19/23 08:15 Dose: 81 mg Documented By: ROBERT Atorvastatin Calcium (Atorvastatin Calcium 80 Mg Tablet) 40 mg PO DAILY [facility] Last Admin: 03/19/23 08:16 Dose: 40 mg Documented By: ROBERT Dextrose (Dextrose 50 % 25 Gm/50 Ml Syringe) 25 gm IVPUSH Q15M PRN; Protocol PRN Reason: per Hypoglycemia Standing Ord. Doxazosin Mesylate (Doxazosin Mesylate 2 Mg Tablet) 4 mg PO DAILY [facility]; Protocol Last Admin: 03/19/23 08:15 Dose: 4 mg Documented By: ROBERT Enalapril Maleate (Enalapril Maleate 10 Mg Tablet) 20 mg PO DAILY [facility]; Protocol Last Admin: 03/19/23 08:16 Dose: 20 mg Documented By: ROBERT Enoxaparin Sodium (Enoxaparin Sodium 40 Mg/0.4 Ml Syringe) 40 mg SUBCUT Q24H [facility] Last Admin: 03/18/23 20:13 Dose: 40 mg Documented By: KERRIE Finasteride (Finasteride 5 Mg Tablet) 5 mg PO DAILY [facility] Last Admin: 03/19/23 08:16 Dose: 5 mg Documented By: ROBERT Fluticasone Propionate (Fluticasone Propionate Nasal 16 Gm [place]) 1 spray NOSTRIL-B DAILY PRN PRN Reason: Congestion Glucose (Glucose Gel 15 Gm Gel..Gram.) 15 gm PO Q15M PRN; Protocol PRN Reason: per Hypoglycemia Standing Ord. Azithromycin 500 mg/ Sodium (Chloride) 250 mls @ 125 mls/hr IV Q24H [facility] Last Infusion: 03/18/23 23:24 Dose: Infused Documented By: ERIC Insulin Human Lispro (Insulin Lispro 100 Unit/Ml 3 Ml Vial) 0 unit SUBCUT QIDACHS [facility]; Protocol Last Admin: 03/19/23 11:21 Dose: Not Given Documented By: ROBERT Non-Admin Reason: No Insulin Coverage Melatonin (Melatonin 3 Mg Tablet) 6 mg PO BEDTIME PRN PRN Reason: Insomnia Last Admin: 03/18/23 21:24 Dose: 6 mg Documented By: ERIC Metformin HCl (Metformin Hcl 500 Mg Tablet) 250 mg PO DAILY [facility] Last Admin: 03/19/23 08:16 Dose: 250 mg Documented By: ROBERT Methylprednisolone Sodium Succinate (Methylprednisolone Sod Succ 40 Mg/Ml Vial) 40 mg IVPUSH Q12H [facility] Last Admin: 03/19/23 04:49 Dose: 40 mg Documented By: MERLE Ondansetron HCl (Ondansetron Hcl 4 Mg/2 Ml Vial) 4 mg IVPUSH Q8H PRN PRN Reason: Nausea and Vomiting Sodium Chloride (0.9 % Sodium Chloride Flush 3 Ml Syringe) 3 ml IVFLUSH QSHIFT KELLI Last Admin: 03/19/23 08:19 Dose: 3 ml Documented By: ROBERT Tramadol HCl (Tramadol Hcl 50 Mg Tablet) 50 mg PO BID PRN PRN Reason: severe pain Labs 03/19/23 05:35 03/19/23 05:35 Labs: Laboratory Results - last 24 hr 03/18/23 03/18/23 03/18/23 17:22 17:23 19:47 MCV 93.2 MCH 30.2 MCHC 32.4 RDW 15.4 Plt Count 239 MPV 9.4 Immature Gran % (Auto) 0.3 Neut % (Auto) 85.1 H Lymph % (Auto) 10.2 L [place] % (Auto) 4.2 Eos % (Auto) 0.0 Baso % (Auto) 0.2 Lymph # (Auto) 0.7 L [place] # (Auto) 0.3 Eos # (Auto) 0.0 Baso # (Auto) 0.0 Abs Immat Gran (auto) 0.02 Absolute Neuts (auto) 5.5 Absolute Nucleated RBC 0.000 Nucleated RBC % (auto) 0.0 Anion Gap 14 Estim Creat Clear Calc 124.5 Estimated GFR > 60 POC Glucose Random Glucose 110 Lactic Acid 2.1 H* Lactic Acid F/U @ 2Hr 2.4 H* Lactic Acid F/U @ 4Hr Calcium 9.8 D Magnesium 1.7 Total Bilirubin 0.4 Direct Bilirubin 0.2 AST 33 ALT 40 Alkaline Phosphatase 64 B-Natriuretic Peptide 12 Total Protein 7.9 Albumin 4.6 COVID-19 (LORRI) Negative COVID-19 Clin Com See Note Influenza Type A (EZEQUIEL) Negative Influenza Type B (EZEQUIEL) Negative Influenza A & B Note See Note 03/18/23 03/18/23 03/19/23 20:49 22:03 05:35 MCV 91.3 MCH 31.0 MCHC 34.0 RDW 14.9 Plt Count 232 MPV 10.7 Immature Gran % (Auto) 0.2 Neut % (Auto) 86.6 H Lymph % (Auto) 9.7 L [place] % (Auto) 3.4 Eos % (Auto) 0.0 Baso % (Auto) 0.1 Lymph # (Auto) 0.8 L [place] # (Auto) 0.3 Eos # (Auto) 0.0 Baso # (Auto) 0.0 Abs Immat Gran (auto) 0.02 Absolute Neuts (auto) 7.0 Absolute Nucleated RBC 0.000 Nucleated RBC % (auto) 0.0 Anion Gap 13 Estim Creat Clear Calc 135.7 Estimated GFR > 60 POC Glucose 137 H Random Glucose 119 H Lactic Acid Lactic Acid F/U @ 2Hr Lactic Acid F/U @ 4Hr 2.6 H* Calcium 9.4 Magnesium Total Bilirubin Direct Bilirubin AST ALT Alkaline Phosphatase B-Natriuretic Peptide Total Protein Albumin COVID-19 (LORRI) COVID-19 Clin Com Influenza Type A (EZEQUIEL) Influenza Type B (EZEQUIEL) Influenza A & B Note 03/19/23 03/19/23 07:07 11:07 MCV MCH MCHC RDW Plt Count MPV Immature Gran % (Auto) Neut % (Auto) Lymph % (Auto) [place] % (Auto) Eos % (Auto) Baso % (Auto) Lymph # (Auto) [place] # (Auto) Eos # (Auto) Baso # (Auto) Abs Immat Gran (auto) Absolute Neuts (auto) Absolute Nucleated RBC Nucleated RBC % (auto) Anion Gap Estim Creat Clear Calc Estimated GFR POC Glucose 127 H 119 H Random Glucose Lactic Acid Lactic Acid F/U @ 2Hr Lactic Acid F/U @ 4Hr Calcium Magnesium Total Bilirubin Direct Bilirubin AST ALT Alkaline Phosphatase B-Natriuretic Peptide Total Protein Albumin COVID-19 (LORRI) COVID-19 Clin Com Influenza Type A (EZEQUIEL) Influenza Type B (EZEQUIEL) Influenza A & B Note Assessment and Plan (1) Acute respiratory distress: Status: Acute (2) Asthma-COPD overlap syndrome: Status: Acute Plan This is a 57-year-old male with pertinent history of prostate cancer on radiotherapy, LUIS noncompliant with CPAP, essential hypertension, twi-lpraazy-whjwkinpa diabetes mellitus, mixed hyperlipidemia who presents to the emergency department for evaluation of dyspnea. # Acute respiratory distress due to acute exacerbation of asthma/COPD IV steroids. Scheduled and p.r.n. DuoNebs. Continue home inhaler. azithromycin for pleiotropic effect. # Acute lactic acidosis due to albuterol use. No sepsis # LUIS: Noncompliant with CPAP, CPAP At bedtime # Essential hypertension: Continue amlodipine and DAVID-inhibitor # Smd-wrtrpca-negvlsrgu diabetes mellitus: Accu-Cheks with sliding scale insulin # Mixed hyperlipidemia: On statin DVT prophylaxis: Lovenox The patient will need overnight hospital stay for treatment of respiratory distress pending clinical improvement Quality Stroke Does the patient have a stroke diagnosis?: No VTE Prior VTE?: No VTE Risk Level:: Medical - moderate - high VTE Device Contraindication: Treatment Not Indicated VTE Drug Contraindication: N/A - Med Ordered
--- NOTE | 2023-03-19 15:12 | PC.NURSE ---
pt reports feeling SOB, O2 sat 87% on room air. Pt took a few deep breaths and sat increased to 93%. Spoke to RT and Dr Posadas, pt placed on 1L NC.
--- NOTE | 2023-03-19 16:26 | MHC.CM.PN ---
CM MET WITH PT WITH [employer] PT REPORTS HE LIVES WITH HIS ANNIE HE HAS NO SERVICES BUT FEELS HE DOES NEED A BUILDING APPRAISER HE HAS A [facility] NEBULIZER PCP SO SIMS HCP COMPLETED TODAY AND ON FILE IMM DELIVERED PT WILL DC HOME WITH REFERRAL TO [facility] EVAL FAMILY TO TRANSPORT
[2023-03-19 16:32] LABS: Glucose, Whole Blood 132 mg/dL (60-115)
--- NOTE | 2023-03-19 17:55 | PC.NURSE ---
Pt complaining of left sided chest pain stating that it doesn't feel internal but is unable to describe it beyond that. States that it started after a breathing treatment. Vitals taken. T 96.8 P 86 RR 20 BP 131/69 O2 [address] Posadas made aware.
--- NOTE | 2023-03-19 18:07 | ECG_ITS ---
Test Reason : chest pain Blood Pressure : / mmHG Vent. Rate : 081 BPM Atrial Rate : 081 BPM P-R Int : 146 ms QRS Dur : 084 ms QT Int : 356 ms P-R-T Axes : 075 050 034 degrees QTc Int : 413 ms Normal sinus rhythm Normal ECG When compared with ECG of 18-MAR-2023 17:28, No significant change was found Referred By: Rafat Posadas Electronically Signed By:BAKARI SWIFT MD
[2023-03-19] MEDS: Azithromycin 500 MG in 0.9 % Sodium Chloride 250 ML 125 MG IV (20:18)
[2023-03-19] MEDS: Enoxaparin Sodium 40 MG/0.4 ML SYRINGE SUBCUT (20:19)
[2023-03-19 20:25] LABS: Glucose, Whole Blood 152 mg/dL (60-115)
[2023-03-19] MEDS: Insulin Lispro 100 UNIT/ML 3 ML VIAL SUBCUT (21:05)
[2023-03-20 04:00] VITALS: BP 122/74; PULSE 85; RESP 18; TEMP 36.6; O2SAT 95
[2023-03-20] MEDS: methylPREDNISolone Sod Succ 40 MG/ML VIAL IVPUSH (05:13)
[2023-03-20 07:54] VITALS: PULSE 72; RESP 18; O2SAT 95
[2023-03-20] MEDS: Albuterol/Iprat 2.5/0.5MG 3 ML AMPUL.NEB INHALE ×2 (07:54→11:15)
[2023-03-20 07:57] VITALS: BP 135/76; PULSE 91; RESP 18; TEMP 36; O2SAT 99
[2023-03-20 08:12] LABS: Glucose, Whole Blood 118 mg/dL (60-115)
[2023-03-20] MEDS: Finasteride 5 MG TABLET PO (08:25)
[2023-03-20] MEDS: metFORMIN HCl 500 MG TABLET 250 MG PO (08:25)
[2023-03-20] MEDS: Enalapril Maleate 10 MG TABLET 20 MG PO (08:26)
[2023-03-20] MEDS: amLODIPine Besylate 10 MG TABLET PO (08:26)
[2023-03-20] MEDS: Aspirin Enteric Coated 81 MG TABLET.DR PO (08:26)
[2023-03-20] MEDS: Doxazosin Mesylate 2 MG TABLET 4 MG PO (08:26)
[2023-03-20] MEDS: Atorvastatin Calcium 80 MG TABLET 40 MG PO (08:26)
[2023-03-20] MEDS: 0.9 % Sodium Chloride Flush 3 ML SYRINGE IVFLUSH (08:29)
[2023-03-20 11:15] VITALS: PULSE 98; RESP 18; O2SAT 90
[2023-03-20 11:31] LABS: Glucose, Whole Blood 99 mg/dL (60-115)
--- NOTE | 2023-03-20 12:01 | PM.DS ---
DS: Providers Provider Date of Service: 03/20/23 Date of admission: 03/19/23 10:00 Primary care physician: Clayton Raza MD DS: Diagnosis Discharge Diagnosis (1) Acute respiratory distress: Status: Acute (2) Asthma-COPD overlap syndrome: Status: Acute DS: Summary Hospital Course Hospital Course: Admission note HPI This is a 57-year-old male with pertinent history of prostate cancer on radiotherapy, LUIS noncompliant with CPAP, essential hypertension, riv-jelrhub-chloapuop diabetes mellitus, mixed hyperlipidemia who presents to the emergency department for evaluation of dyspnea. History obtained with the help of diplomatic interpreter/translator. Patient was seen in the ER on 03/15 and was discharged on p.o. steroids. Patient states he continued having symptoms and hence presented to present to the ER. His symptoms started about 4 days prior to presentation. It included nonproductive cough, wheezing and dyspnea which was worse with exertion. Patient had radiation on the day of presentation for prostate cancer. He states he has CPAP at home but is noncompliant. Does not smoke cigarettes. No fever, chills, chest discomfort, palpitations, abdominal pain, changes in urinary or bowel habits. In the emergency department, patient with continued wheezing despite multiple DuoNeb treatments Hospital course # Acute respiratory distress due to acute exacerbation of asthma/COPD Treated with IV steroids and DuoNebs with Azithromycin. He improved over the course of hospital stay and was weaned off Oxygen. # LUIS Noncompliant with CPAP at home. advised to use it everynight and with naps. Plan: Continue Azithromycin and Prednisone as prescribed Start Breo daily Use CPAP everynight Try to lose weight Time Attestation Discharge coordination time: Greater than 30 minutes Quality: Safe Use of Opioids Does Pt have an Active Cancer Diagnosis on the Problem List?: No Quality: Stroke Does the patient have a stroke diagnosis?: No Physical Exam Vital Signs: Vital Signs: Last Vital Signs Temp 96.8 F 03/20/23 07:57 Pulse 98 03/20/23 11:15 Resp 18 03/20/23 11:15 BP 135/76 03/20/23 07:57 Pulse Ox 99 03/20/23 07:57 O2 Del Method Nasal Cannula 03/20/23 07:57 O2 Flow Rate 1 03/20/23 07:57 BMI result Body Mass Index 35.1 Const: Other: Constitutional : Awake, interactive, in mild respiratory distress distress Neck : Normal inspection, Supple Cardiovascular : RRR, no JVP, no lower extremity edema Respiratory : good bilateral air entry, no crackles, no wheezes Gastrointestinal: soft, lax, Normal bowel sounds, Non tender Skin : Warm, Dry Neurological : Alert & oriented x3, No focal deficit DS: Data Data Completed and Pending Labs on day of discharge: Laboratory Results - last 24 hr 03/19/23 03/19/23 03/20/23 16:19 20:09 07:56 POC Glucose 132 H 152 H 118 H 03/20/23 11:06 POC Glucose 99 Preliminary micro results at discharge 03/18/23 17:22 Blood Culture - Preliminary Blood - Venous No growth after 24 hours. 03/18/23 17:22 Blood Culture - Preliminary Blood - Venous No growth after 24 hours. Imaging Chest x-ray: Radiologist's impression: ITS Impressions Chest X-Ray 03/18/23 17:08 IMPRESSION: * Redemonstration of mild bilateral parahilar interstitial infiltrates unchanged. * No dense lobar consolidation pneumonia or pleural effusion. Discharge Plan Discharge Anticipated Discharge Date/Time: 03/20/23 11:46 Patient Disposition: Home, Self-Care Discharge Diagnosis: Asthma exacerbation Referrals: Clayton Raza MD [Primary Care Provider] - 1 Week Discharge Medications: New azithromycin 250 mg Tablet 250 mg PO Q24H Qty: 3 0RF prednisone 20 mg tablet 40 mg PO DAILY Qty: 10 0RF fluticasone furoate-vilanterol [Breo Ellipta] 100-25 mcg/dose blister with device 1 inh inhalation DAILY Qty: 60 0RF guaifenesin 600 mg tablet extended release 12hr 600 mg PO Q12H Qty: 10 0RF Continued rosuvastatin 40 mg tablet 40 mg PO DAILY Qty: 90 3RF metformin 500 mg tablet 250 mg PO DAILY 30 Days Qty: 15 3RF doxazosin 4 mg tablet 4 mg PO DAILY 90 Days Qty: 90 1RF amlodipine 10 mg tablet 10 mg PO DAILY 90 Days Qty: 90 1RF finasteride 5 mg tablet 5 mg PO DAILY 90 Days Qty: 90 1RF albuterol sulfate [Ventolin HFA] 90 mcg/actuation HFA aerosol inhaler 2 puff inhalation Q6H PRN (Reason: for wheezing) Qty: 18 3RF enalapril maleate 20 mg tablet 20 mg PO DAILY Qty: 90 1RF albuterol sulfate 0.63 mg/3 mL solution for nebulization 0.63 mg inhalation Q4H PRN (Reason: shortness of breath or wheezing) Qty: 75 3RF prednisone 20 mg tablet 20 mg PO DAILY 7 Days Qty: 7 0RF fluticasone propionate 50 mcg/actuation spray,suspension 1 spray intranasal DAILY PRN (Reason: Congestion) tramadol 50 mg tablet 50 mg PO BID PRN (Reason: severe pain) (DME) blood pressure test kit-large Kit See Rx Instructions .Route Qty: 1 0RF Rx Instructions: As directed aspirin 81 mg tablet,delayed release (DR/EC) 81 mg PO DAILY 90 Days Qty: 90 3RF Discontinued doxycycline hyclate 100 mg tablet 100 mg PO BID 7 Days Qty: 14 0RF Discharge Orders: Discharge Order (Routine); Ordered 03/20/23 Ordered By: Rafat Posadas Diet: Advance to usual diet Activity on Discharge: As tolerated Stand Alone Forms: Patient Portal Discharge page Care Plan Goals: Read below Health Concerns: Read below Plan of Treatment: Read below Assessment: You were treated for Asthma\COPD exacrbation with steroids, antibiotics and nebulizers with good response. Continue Azithromycin and Prednisone as prescribed Start Breo daily Use CPAP everynight Try to lose weight
--- NOTE | 2023-03-20 13:02 | P.CDIM_ITS ---
PROVIDER RESPONSE TEXT: To clarify, the appropriate diagnosis supported by the clinical indicators: Mild intermittent: . QUERY TEXT: PHYSICIAN'S DOCUMENTATION REQUEST Date of Query: 03/20/2023 09:54 AM EST Patient Name: Kd Lara Admit Date: 03/19/2023 Dear Rafat Posadas, A review of the medical record indicates additional documentation may be needed. Please review below and update the documentation accordingly. The diagnosis of asthma was documented in the record on 03/19/23. Additional clinical indicators from the record include: Treatment of acute exacerbation of asthma/COPD: IV steroids. Scheduled and p.r.n. DuoNebs. Continue home inhaler. azithromycin for pleiotropic effect. Based on the above, please clarify in the Progress Notes further specificity regarding the type and a cuity of the asthma: Mild intermittent Please specify if with or without acute exacerbation or status asthmaticus Mild persistent Please specify if with or without acute exacerbation or status asthmaticus Moderate persistent Please specify if with or without acute exacerbation or status asthmaticus Severe persistent Please specify if with or without acute exacerbation or status asthmaticus Exercise induced Please specify if with or without acute exacerbation or status asthmaticus Chronic obstructive asthma and indicate if with acute lower respiratory infection Please specify if with or without acute exacerbation or status asthmaticus Asthma with underlying COPD and indicate if with acute lower respiratory infection Please specify if with or without acute exacerbation or status asthmaticus Other (explain) Clinically unable to determine (explain) Thank you, Carleen Christensen RN Use of terms such as suspected, likely, concern for, or probable (associated with a specific diagnosi s that is being evaluated, monitored, or treated as if it exists) are acceptable and can be coded in the inpatient se tting, when documented at the time of discharge. Please use your independent medical judgment in providing your response. THIS QUERY IS PART OF THE PERMANENT MEDICAL RECORD
--- NOTE | 2023-03-20 13:10 | MHC.CM.PN ---
PT DISCHARGED HOME TODAY WITH NO SERVICES PROVIDED TRANSPORT
== END 2023-03-20 13:10 | disposition home or self-care (01) | DRG 202 ==
LOC: HO.ED 17:40 → HO.EDOVER 19:39 → HO.S3 20:02
PROVIDERS: Nurse Practitioner Family; Physician Assistant; Admitting Provider Student in an Organized Health Care Education/Training Program; Emergency Provider Emergency Medicine; PCP Internal Medicine; Visit Provider Student in an Organized Health Care Education/Training Program
DX: J45.21 Mild intermittent asthma with (acute) exacerbation (principal); E87.21 Acute metabolic acidosis; J44.1 Chronic obstructive pulmonary disease with (acute) exacerbation; E11.9 Type 2 diabetes mellitus without complications; I25.10 Atherosclerotic heart disease of native coronary artery without angina pectoris; C61 Malignant neoplasm of prostate; I10 Essential (primary) hypertension; G47.33 Obstructive sleep apnea (adult) (pediatric); E78.2 Mixed hyperlipidemia; R06.03 Acute respiratory distress; Z20.822 Contact with and (suspected) exposure to COVID-19; Z91.199 Patient's noncompliance with other medical treatment and regimen due to unspecified reason; Z79.82 Long term (current) use of aspirin; Z79.84 Long term (current) use of oral hypoglycemic drugs; Z79.52 Long term (current) use of systemic steroids; Z79.899 Other long term (current) drug therapy
CPT/HCPCS: 36415; 71046; 80048; 80076; 82947; 83605; 83735; 83880; 84484; 85025; 87040; 87502; 87635; 93005; 94660; 99221; 99285; J0456; J0696; J1650; J2920; J2930; J3475

== ENCOUNTER → 2023-03-18 19:35 | Outpatient (BNV) | payer MEDICARE, MEDICAID, SELFPAY | PROVIDERS: Admitting Provider Student in an Organized Health Care Education/Training Program; Emergency Provider Emergency Medicine; PCP Internal Medicine; Visit Provider Student in an Organized Health Care Education/Training Program | DX: J44.1 Chronic obstructive pulmonary disease with (acute) exacerbation (principal); R06.03 Acute respiratory distress | CPT/HCPCS: 99222; 99232; 99239 ==

== ENCOUNTER 2023-04-09 07:06 | Outpatient (REF) | payer MEDICARE, MEDICAID, SELFPAY ==
[2023-04-09 08:09] LABS: Basophils Percent Auto 0.5 % (0-2); Eosinophils Absolute Auto 0.1 X10*3/uL (0.0-0.4); Eosinophils Percent Auto 5.9 % (0-4); Hematocrit 44.2 % (42.0-52.0); Hemoglobin 15.1 g/dl (14.0-18.0); Lymphocytes Absolute Auto 0.7 X10*3/uL (1.2-4.9); Lymphocytes Percent Auto 33.6 % (20-40); MANUAL DIFF FLAG SCAN; Mean Corpuscular HGB Conc 34.2 g/dl (31.0-36.0); Mean Corpuscular Hemoglobin 30.8 pg (27.0-33.0); Mean Platelet Volume 10.3 fL (9.4-12.4); Monocytes Absolute Auto 0.5 X10*3/uL (0.1-1.2); Monocytes Percent Auto 20.5 % (2-11); Neutrophils Absolute Auto 0.9 x10*3/uL (2.0-8.3); Neutrophils Percent Auto 39.5 % (45-73); Platelet Count 155 X10*3/uL (160-400); Red Blood Count 4.91 X10*6/uL (4.60-5.80); Red Cell Distribution Width 15.9 % (11.0-16.0); SCAN SMEAR FLAG 1
[2023-04-09 08:10] LABS: White Blood Count 2.2 X10*3/uL (4.8-10.8)
[2023-04-09 08:13] LABS: Estimated Average Glucose 126 mg/dL
[2023-04-09 08:14] LABS: Appearance Urine Clear; Color Urine Yellow; Glucose Urine UA Negative (Negative); Leukocyte Esterase Urine Negative (Negative); Nitrite Urine Negative (Negative); PH 5.5 (5.0-9.0); Specific Gravity - Urine 1.015 (1.005-1.025); Urine Blood Negative (Negative); Urine Ketones Negative (Negative); Urine Protein Negative (Neg-Trace)
[2023-04-09 08:35] LABS: Creatinine Urine 90.24 mg/dL; Microalbum/Creatinine Ratio Ur 6.6 ug/mg cr (<30)
[2023-04-09 08:44] LABS: SLIDE REVIEW VERIFIED
[2023-04-09 08:54] LABS: Alanine Aminotransferase 37 U/L (0-40); Albumin Level 3.8 g/dL (3.5-5.0); Alkaline Phosphatase 58 U/L (39-117); Anion Gap 12 (12-20); Aspartate Amino Transferase 22 U/L (5-37); Bilirubin Total 0.7 mg/dL (0.0-1.0); Blood Urea Nitrogen 15 mg/dL (9-16); Calcium 8.8 mg/dL (8.4-10.2); Carbon Dioxide 26 mmol/L (22-29); Chloride 106 mmol/L (96-108); Cholesterol 164 mg/dL (<200); Estimated Glomerular Filt Rate > 60; Glucose Fasting 87 mg/dL (60-99); HDL Cholesterol 71 mg/dL (>40); LDL Cholesterol Calculated 84 mg/dL (<100); Potassium 4.2 mmol/L (3.3-5.1); Sodium 140 mmol/L (135-145); Total Protein 6.6 g/dL (6.5-8.0); Triglycerides 47 mg/dL (<150)
[2023-04-09 08:55] LABS: TSH reflex Free T4 3.27 uIU/mL (0.32-4.0); Vitamin D 25-OH Total 19.1 ng/mL (>30)
[2023-04-09 09:01] LABS: Vitamin B12 659 pg/mL (200-900)
[2023-04-09 09:56] LABS: Folate 11.5 ng/mL (> or = 4.0)
== END 2023-04-09 07:07 | disposition home or self-care (01) ==
LOC: HO.LAB 07:06
PROVIDERS: PCP Internal Medicine; Visit Provider Internal Medicine
DX: R30.0 Dysuria (principal); E78.00 Pure hypercholesterolemia, unspecified; I10 Essential (primary) hypertension; E55.9 Vitamin D deficiency, unspecified; E53.8 Deficiency of other specified B group vitamins; E11.9 Type 2 diabetes mellitus without complications
CPT/HCPCS: 36415; 80053; 80061; 81003; 82043; 82306; 82570; 82607; 82746; 83036; 84443; 85025

== ENCOUNTER 2023-04-13 06:51 | Emergency (ER) | payer MEDICARE, MEDICAID, SELFPAY ==
--- NOTE | ~2023-04-13 | XR_ITS ---
EXAMINATION: XR CHEST CLINICAL INFORMATION: Cough COMPARISON: 03/18/2023 TECHNIQUE: AP upright portable view of the chest was obtained. 7:48 AM FINDINGS: Again seen are mild bilateral perihilar interstitial infiltrates unchanged from prior exam. New streaky opacity in the left lower lobe consistent with atelectasis and/or pneumonia. No pleural effusion. No pneumothorax. Heart size is normal. Skeletal structures included are normal for age. XR/XR chest 1V IMPRESSION: Again seen are mild bilateral parahilar interstitial infiltrates, unchanged. New streaky opacity in the left lower lobe with atelectasis and/or pneumonia.
[2023-04-13 07:04] VITALS: BP 119/72; PULSE 80; RESP 20; TEMP 36.5; O2SAT 98; BMI 36.4
--- NOTE | 2023-04-13 07:35 | ED.URI ---
HPI - URI/Sore Throat General Chief Complaint: Upper Respiratory Symptoms Stated Complaint: Asthma Time Seen by Provider: 04/13/23 07:34 Source: patient, RN notes reviewed and old records reviewed Mode of arrival: ambulatory History of Present Illness HPI Narrative: 57-year-old male with a past medical history of asthma/COPD overlap syndrome, obesity, HTN, HLD, diabetes, CAD, prostate CA on radiation presenting to the ED complaining of dry cough, SOB, and asthma exacerbation x few days. Reports compliance with treatment at home. Patient was recently discharged from our facility on 03/20 for asthma/COPD overlap syndrome. Denies reported fevers/chills, travel, pedal edema, calf tenderness MD elicited complaint: cough Related Data Home Medications Medication Instructions Recorded Confirmed fluticasone propionate 50 1 spray intranasal DAILY PRN 03/18/23 03/18/23 mcg/actuation nasal Congestion spray,suspension tramadol 50 mg tablet 50 mg PO BID PRN severe pain 03/18/23 03/18/23 Previous Rx's Medication Instructions Recorded blood pressure test kit-large #1 ea 10/02/21 aspirin 81 mg tablet,delayed 81 mg PO DAILY 90 days #90 tabs 10/13/22 release rosuvastatin 40 mg tablet 40 mg PO DAILY #90 tabs 12/15/22 metformin 500 mg tablet 250 mg (1/2 x 500 mg) PO DAILY 30 01/23/23 days #15 tabs doxazosin 4 mg tablet 4 mg PO DAILY 90 days #90 tabs 02/20/23 amlodipine 10 mg tablet 10 mg PO DAILY 90 days #90 tabs 02/23/23 finasteride 5 mg tablet 5 mg PO DAILY 90 days #90 tabs 02/24/23 prednisone 20 mg tablet 20 mg PO DAILY 7 days #7 tabs 03/15/23 albuterol sulfate 0.63 mg/3 mL 0.63 mg (3 mL) inhalation Q4H PRN 03/16/23 solution for nebulization shortness of breath or wheezing #75 mL albuterol sulfate 90 mcg/actuation 2 puff inhalation Q6H PRN for 03/16/23 aerosol inhaler (Ventolin HFA) wheezing #18 ea enalapril maleate 20 mg tablet 20 mg PO DAILY #90 tabs 03/16/23 azithromycin 250 mg tablet 250 mg PO Q24H #3 tabs 03/20/23 fluticasone furoate 100 1 inh inhalation DAILY #60 ea 03/20/23 mcg-vilanterol 25 mcg/dose inhalation powder (Breo Ellipta) guaifenesin 600 mg tablet, 600 mg PO Q12H #10 tabs 03/20/23 extended release 12 hr prednisone 20 mg tablet 40 mg (2 x 20 mg) PO DAILY #10 tabs 03/20/23 amoxicillin 875 mg-potassium 1 tab PO BID 7 days #13 tabs 04/13/23 clavulanate 125 mg tablet azithromycin 250 mg tablet 250 mg PO DAILY 4 days #4 tabs 04/13/23 Allergies Allergy/AdvReac Type Severity Reaction Status Date / Time No Known Allergies Allergy Verified 04/13/23 07:10 Review of Systems Review of Systems: Constitutional: No Fever, No Chills ENT/Mouth: No Ear Pain, No Nasal Congestion, No sore throat, No Rhinorrhea, No Swallowing Difficulty Cardiovascular: No Chest Pain, + SOB Respiratory: + Cough, No Sputum, + Wheezing Gastrointestinal: No Nausea, No Vomiting, No Diarrhea, No Constipation, No Abdominal pain Musculoskeletal: No joint pain, No Myalgias, No Joint Swelling Skin: No Skin Lesions, No rash Neuro: No Weakness Yes all other systems are reviewed and are negative Constitutional: Constitutional: Reports as per [facility] Past Medical History Attestation statement: The following information was validated with the patient. Source: old records reviewed Medical History Personal history of colonic polyps Pre-op chest exam Left knee pain Annual physical exam Obese Pulmonary nodules Asthma-COPD overlap syndrome Hiatal hernia Hiatal hernia Obesity (BMI 30-39.9) Benign essential hypertension Pure hypercholesterolemia Diabetes mellitus Coronary artery disease LUIS (obstructive sleep apnea) Chronic cough Degenerative disc disease Lung fibrosis Bronchial asthma HTN (hypertension) Surgical History Hx of prostate biopsy History of esophagogastroduodenoscopy (EGD) Hx of colonoscopy S/P arterial stent Social History Social History Housing: Apartment Alcohol intake: never Patient Tobacco Use Status: Never used Tobacco e-Cigarette/Vaping Use: Never Used Substance Use Type: Marijuana Advance Directives: No service: No Current occupational status: disabled Cognitive needs: No Hearing needs: No Vision needs: Yes Physical Exam Vital Signs: Vital Signs: Last Vital Signs Temp 97.7 F 04/13/23 07:04 Pulse 88 04/13/23 09:24 Resp 18 04/13/23 09:24 BP 119/72 04/13/23 07:04 Pulse Ox 98 04/13/23 07:04 O2 Del Method Room Air 04/13/23 07:04 BMI result Body Mass Index 36.4 Const: General: cooperative, healthy appearing and no acute distress Orientation/consciousness: patient oriented x3 Limitations: no limitations HEENT: Head: Yes normal to inspection and Yes atraumatic Ears: hearing grossly normal bilaterally General nose exam: Normal external nose present Face and sinus: Yes normal facial exam Eyes: General: appearance normal, both eyes and all related structures EOM: EOMs intact bilaterally Neck: Neck: Yes normal visual inspection and Yes no meningeal signs Resp: Effort & Inspection: normal respiratory effort and no respiratory distress Auscultation: wheezes expiratory wheezes and throughout Cardio: Rate: regular rate Heart sounds: S1 normal heart sound present and S2 normal heart sound present Skin: Rashes: no rashes Wounds: no wounds Neuro: General: patient oriented x3, tone normal and no meningeal signs Cranial nerves: Yes CN's II-XII intact bilaterally Gait exam (Neuro): Normal gait present Extrem: General: Yes normal to inspection, Yes no pedal edema and Yes no calf tenderness Course Course Course Narrative: 914--XR chest 1V IMPRESSION: Again seen are mild bilateral parahilar interstitial infiltrates, unchanged. New streaky opacity in the left lower lobe with atelectasis and/or pneumonia. > will give patient 1st dose of Augmentin and Zithromax and in the ED -COVID/FLU/RSV negative -1043--on re-evaluation patient's lungs CTA. Reports symptomatic improvement. > Results discussed with patient including worrisome signs and symptoms and strict return precautions, and when to return to the emergency department. They verbalized understanding and feel safe for discharge at this time. Medications Administered Discontinued Medications Generic Name Dose Route Start Last Admin Trade Name Freq PRN Reason Stop Dose Admin Amoxicillin/Clavulanate Potassium 875 mg 04/13/23 09:31 04/13/23 10:03 Amoxicillin/Potassium Clav 875 Mg Tablet PO 04/13/23 09:32 875 mg ONCE ONE Administration Azithromycin 500 mg 04/13/23 09:31 04/13/23 10:03 Azithromycin 500 Mg Tablet PO 04/13/23 09:32 500 mg ONCE ONE Administration Albuterol Sulfate 5 mg/ 0 mg 04/13/23 09:20 04/13/23 09:23 Albuterol/Ipratropium 3 ml INHALE 04/13/23 09:21 1 each ONCE ONE Administration Medical Decision Making Medical Decision Making MDM Narrative: 57-year-old male with a past medical history of asthma/COPD overlap syndrome, obesity, HTN, HLD, diabetes, CAD, prostate CA on radiation presenting to the ED complaining of dry cough, SOB, and asthma exacerbation x few days. On exam vital signs stable, NAD, nontoxic appearing, diffuse x-ray [place] wheeze noted. No pedal edema/calf tenderness. Concern for asthma/COPD exacerbation vs bronchitis vs pneumonia. Lower suspicion for ACS/PE Plan: CXR, viral testing, ED bronch protocol Please refer to course for remaining clinical decision making, interpretation of labs/imaging results, and discussions with consultants and/or family members. Differential Diagnosis Differential Diagnoses: The differential diagnosis associated with the presentation includes As above Lab Data [facility] Lab Attestation statement: I reviewed the patient's lab results. Labs: Lab Results 04/13/23 Range/Units 07:20 Influenza Type A (PCR) NEGATIVE (Negative) Influenza Type B (PCR) NEGATIVE (Negative) RSV RNA Qual (PCR) NEGATIVE (Negative) SARS-CoV-2 RNA (RT-PCR) NEGATIVE (Negative) Independent Interpretation I performed an independent interpretation of an: Plain X-Ray Radiology Impression Discussion of test interpretation with radiology: I have reviewed the radiologist's reading. External Record Review External record reviewed: Inpatient record, Office record, Outpatient record, Prior outpatient labs, Prior outpatient radiology, Primary care record and Outside ED record Tests considered The following testing was considered but not selected: As above Chronic Conditions Patient?s care impacted by: Other (Asthma/COPD) Discharge Plan Discharge Clinical Impression: Pneumonia Patient Disposition: Home, Self-Care Instructions: Pneumonia (ED) Prescriptions: New azithromycin 250 mg tablet 250 mg PO DAILY 4 Days Qty: 4 0RF Rx Instructions: start on day 2 of therapy amoxicillin-pot clavulanate 875-125 mg tablet 1 tab PO BID 7 Days Qty: 13 0RF No Action rosuvastatin 40 mg tablet 40 mg PO DAILY Qty: 90 3RF metformin 500 mg tablet 250 mg PO DAILY 30 Days Qty: 15 3RF doxazosin 4 mg tablet 4 mg PO DAILY 90 Days Qty: 90 1RF amlodipine 10 mg tablet 10 mg PO DAILY 90 Days Qty: 90 1RF finasteride 5 mg tablet 5 mg PO DAILY 90 Days Qty: 90 1RF albuterol sulfate [Ventolin HFA] 90 mcg/actuation HFA aerosol inhaler 2 puff inhalation Q6H PRN (Reason: for wheezing) Qty: 18 3RF enalapril maleate 20 mg tablet 20 mg PO DAILY Qty: 90 1RF albuterol sulfate 0.63 mg/3 mL solution for nebulization 0.63 mg inhalation Q4H PRN (Reason: shortness of breath or wheezing) Qty: 75 3RF prednisone 20 mg tablet 20 mg PO DAILY 7 Days Qty: 7 0RF fluticasone propionate 50 mcg/actuation spray,suspension 1 spray intranasal DAILY PRN (Reason: Congestion) tramadol 50 mg tablet 50 mg PO BID PRN (Reason: severe pain) azithromycin 250 mg Tablet 250 mg PO Q24H Qty: 3 0RF prednisone 20 mg tablet 40 mg PO DAILY Qty: 10 0RF fluticasone furoate-vilanterol [Breo Ellipta] 100-25 mcg/dose blister with device 1 inh inhalation DAILY Qty: 60 0RF guaifenesin 600 mg tablet extended release 12hr 600 mg PO Q12H Qty: 10 0RF (DME) blood pressure test kit-large Kit See Rx Instructions .Route Qty: 1 0RF Rx Instructions: As directed aspirin 81 mg tablet,delayed release (DR/EC) 81 mg PO DAILY 90 Days Qty: 90 3RF Referrals: Clayton Raza MD [Primary Care Provider] - 3 days
[2023-04-13 08:08] LABS: Influenza A PCR NEGATIVE (Negative); Influenza B PCR NEGATIVE (Negative); Resp Syncy Virus RNA Qual PCR NEGATIVE (Negative); SARS COV2 PCR INHOUSE NEGATIVE (Negative)
[2023-04-13] MEDS: Albuterol Sulfate 5 MG, Albuterol/Iprat 2.5/0.5MG 3 ML 3 ML INHALE (09:23)
[2023-04-13 09:24] VITALS: PULSE 88; RESP 18; O2SAT 96
[2023-04-13] MEDS: Azithromycin 500 MG TABLET PO (10:03)
[2023-04-13] MEDS: Amoxicillin/Potassium Clav 875 MG TABLET PO (10:03)
[2023-04-13 11:10] VITALS: BP 113/66; PULSE 84; RESP 16; TEMP 36.6; O2SAT 97
== END 2023-04-13 11:13 | disposition home or self-care (01) ==
PROVIDERS: Emergency Provider Emergency Medicine; PCP Internal Medicine
DX: J18.9 Pneumonia, unspecified organism (principal); R06.02 Shortness of breath; Z20.822 Contact with and (suspected) exposure to COVID-19; Z20.828 Contact with and (suspected) exposure to other viral communicable diseases; E11.9 Type 2 diabetes mellitus without complications; I10 Essential (primary) hypertension; E78.00 Pure hypercholesterolemia, unspecified; J44.9 Chronic obstructive pulmonary disease, unspecified; C61 Malignant neoplasm of prostate; E66.9 Obesity, unspecified; Z68.36 Body mass index [BMI] 36.0-36.9, adult; Z95.5 Presence of coronary angioplasty implant and graft; Z92.3 Personal history of irradiation; Z79.82 Long term (current) use of aspirin; Z79.02 Long term (current) use of antithrombotics/antiplatelets; Z79.899 Other long term (current) drug therapy; Z79.84 Long term (current) use of oral hypoglycemic drugs
CPT/HCPCS: 0241U; 71045; 94640; 99284

== ENCOUNTER 2023-04-15 11:56 | Outpatient (AMB) | payer MEDICARE, MEDICAID, SELFPAY ==
--- NOTE | 2023-04-15 11:58 | MHC.PC.OV ---
Vital Signs 04/15/23 12:00 Height 5 ft 10 in Weight 113.965 kg BMI 36.0 BP 110/60 Blood Pressure Location Lt brachial Position Sitting Pulse 74 Pulse Source Pulse Oximeter Pulse Oximetry (%) 98 Oxygen Delivery Method Room Air Intake Visit Reasons: TCM Intake Note: Patient is here for hospital discharge follow up (TCM). Patient was discharged from [facility] [place] on 03/20/23. Form Coverer Required: Yes Form Coverer Language: Orthotic Assistant Name: Chioma (Spouse) Information Interpreted: non-clinical & clinical Termite Control Representative: Present Accompanied by: Spouse Allergies No Known Allergies Allergy (Verified 04/15/23 12:00) Medication List - Last Reconciled 04/15/23 by ANTONIA Garber albuterol sulfate 5 mg inhalation Q4H PRN albuterol sulfate 90 mcg/actuation 2 puffs inhalation Q4-6H PRN albuterol sulfate 90 mcg/actuation (Ventolin HFA) 2 puffs inhalation Q6H PRN albuterol sulfate 0.63 mg (3 mL) inhalation Q4H PRN amlodipine 10 mg PO DAILY 90 days amoxicillin-pot clavulanate 875-125 mg 1 tab PO BID 7 days aspirin 81 mg PO DAILY 90 days azithromycin 250 mg PO DAILY 4 days blood pressure test kit-large As directed codeine-guaifenesin 10-100 mg/5 mL (Guaifenesin AC) 10 mL PO Q4-6H PRN doxazosin 4 mg PO DAILY 90 days enalapril maleate 20 mg PO DAILY finasteride 5 mg PO DAILY 90 days fluticasone furoate-vilanterol 100-25 mcg/dose (Breo Ellipta) 1 inh inhalation DAILY fluticasone propionate 50 mcg/actuation 1 spray intranasal DAILY PRN metformin 250 mg (1/2 x 500 mg) PO DAILY 30 days prednisone 40 mg (2 x 20 mg) PO DAILY rosuvastatin 40 mg PO DAILY tramadol 50 mg PO BID PRN Tobacco use date assessed: 04/15/23 Dental Screening Dental Screen Date: 04/15/23 Did you have a dental visit in the last 12 months?: No Did you have a dental problem in the last 6 months where you did not have access to dental care?: No Was dental information given to patient?: No HPI TCM TCM Information Date of Discharge 03/20/23 Discharged From [facility] Interactive Contact Date (Reference documentation from this date) 03/23/23 HPI Comments History of Present Illness Details 57-year-old male with history of prostate cancer currently on radiotherapy, LUIS noncompliant with CPAP, hypertension, [id number] type 2 diabetes presents to the office today accompanied by his Rina who assists with Tamazight interpretatio for hospital discharge follow-up n. They declined the assistance of a metal gauge maker. The patient was admitted to [facility] from 03/18-03/20 due to acute respiratory distress/failure related to acute exacerbation of asthma/COPD overlap. He had previously been seen in the ER improved was prescribed steroids without improvement. While in the ED, hematology studies and chemistries were unremarkable except for a lactic acidosis which is likely related to metformin use and patient did not meet criteria for sepsis. Chest x-ray at that time was negativ for any acute consolidations. While admitted, he was treated with IV steroids, scheduled DuoNebs, and azithromycin. He was successfully weaned from supplemental O2. Glucose levels remained stable throughout admission. He was discharged home with 3 day course of 250 mg daily azithromycin, 40 mg prednisone daily x5 days, Breo Ellipta inhaler, and guaifenesin. The patient reports his symptoms did improve and resolve. However about 3-4 days ago developed recurrence of productive cough with clear sputum, shortness of breath and wheezing. Had been using his albuterol without improvement. Was seen in the ED again where chest x-ray showed left lower lobe consolidation. He was also noted to have a leukopenia of 2.2 likely secondary to his radiation therapy. He was discharged with a 7 day course of Augmentin and 5 day course of azithromycin. He states he is still having significant wheezing and is using his albuterol/nebulizers about every hour. He does follow with Dr. Everett and has upcoming appointment early next month. Vitals in the office today stable, no hypoxia. [facility] Medical History Asthma-COPD overlap syndrome Personal history of colonic polyps Pre-op chest exam Left knee pain Annual physical exam Obese Pulmonary nodules Hiatal hernia Hiatal hernia Obesity (BMI 30-39.9) Benign essential hypertension Pure hypercholesterolemia Diabetes mellitus Coronary artery disease LUIS (obstructive sleep apnea) Chronic cough Degenerative disc disease Lung fibrosis Bronchial asthma HTN (hypertension) Surgical History Hx of prostate biopsy History of esophagogastroduodenoscopy (EGD) Hx of colonoscopy S/P arterial stent Social History Housing: Apartment Alcohol intake: current Alcohol intake frequency: holidays/special occasions only Patient Tobacco Use Status: Never used Tobacco e-Cigarette/Vaping Use: Never Used Second Hand Smoke Exposure: No Substance Use Type: Marijuana service: No Current occupational status: disabled Cognitive needs: No Hearing needs: No Vision needs: Yes Questionnaire Thrive Questionnaire Date Thrive assessed: 03/19/23 JUAN LUIS-7 AMB Questionnaire JUAN LUIS-7 Date JUAN LUIS - 7 assessed: 02/17/23 Source: Developed by Drs. Aram Christopher, Carrie Dimas, Urban Denney and colleagues, with an educational bud from [employer]. Review of Systems Const All systems reviewed & are unremarkable except as noted in HPI and below Physical exam (Primary Care) Vital Signs: Last Vital Signs Pulse 74 04/15/23 12:00 BP 110/60 04/15/23 12:00 Pulse Ox 98 04/15/23 12:00 Oxygen Delivery Method Room Air 04/15/23 12:00 BMI result Body Mass Index 36.0 Tobacco/Smoking Status: Tobacco use Status Tobacco use date assessed 04/15/23 04/15/23 12:04 Patient Tobacco Use Status Never used Tobacco 04/15/23 12:08 e-Cigarette/Vaping Use Never Used 04/15/23 12:08 Thrive Assessment: Date of Thrive Assessment Date Thrive assessed 03/19/23 04/15/23 12:04 Const Other: Constitutional - Awake and Alert, No apparent distress Eyes - PERRLA, EOMI Cardiovascular - S1S2, RRR, No edema Respiratory - Normal lung expansion, Normal respiratory effort, No respiratory distress, mildly diminished bilaterally with scattered expiratory wheezes Extremities - no calf tenderness bilaterally, no swelling Skin - Warm/Dry Neurological - Alert & oriented x3 Psychological - Appropriate affect Results Reviewed Results Reviewed: ED report x2, cbc, bmp, cxr x2, H&P, discharge summary Assessment and Plan Assessment & Plan (1) Hospital discharge follow-up: Code(s): Z09 - Encounter for follow-up examination after completed treatment for conditions other than malignant neoplasm (2) Asthma-COPD overlap syndrome: Code(s): J44.9 - Chronic obstructive pulmonary disease, unspecified Plan: Resolved following hospitalization from 03/18-03/20 after completing course of steroids, treatment with azithromycin. Successfully weaned from supplemental O2 while in the hospital now maintaining oximetry 98% in the office today. However has recurrence of symptoms and noted to have mild asthma/COPD exacerbation the office today. He reports compliance with Breo Ellipta inhaler and is advised to continue with this. Will give 40 mg daily prednisone x5 days. Continue antibiotics as prescribed by the ED for community-acquired pneumonia. Use albuterol/nebulizer treatments as needed. If no improvement in symptoms or with any worsening of symptoms, present to the ED for further evaluation. Follow-up with Dr. Everett as scheduled. (3) Acute respiratory failure with hypoxia: Code(s): J96.01 - Acute respiratory failure with hypoxia Plan: Secondary to COPD exacerbation. Weaned from supplemental O2 while hospitalized as above. Oximetry 98% in the office today. Resolved. (4) LUIS (obstructive sleep apnea): Code(s): G47.33 - Obstructive sleep apnea (adult) (pediatric) Plan: Noncompliant with CPAP. Encouraged to use CPAP, educated on the importance of CPAP usage. (5) Pulmonary fibrosis: Code(s): J84.10 - Pulmonary fibrosis, unspecified Plan: Follow-up with Dr. Everett as scheduled. Continue maintenance inhalers as prescribed and albuterol said nebulizer treatments as needed. (6) Pneumonia: Code(s): J18.9 - Pneumonia, unspecified organism Plan: Community-acquired left lower lobe pneumonia diagnosed 2 days ago in ED. continue Augmentin x7 days and azithromycin x5 days as prescribed in the ED. Should have follow-up chest x-ray in 4-6 weeks to ensure resolution. This has been ordered. Prescribed a short course of guaifenesin AC to help with aggressive cough with pleuritic chest pains. Mass pat was reviewed and is appropriate. (7) Leukopenia: Code(s): D72.819 - Decreased white blood cell count, unspecified Plan: Leukopenia of 2.2 noted ER 2 days ago. This is likely secondary to radiation therapy as well as acute infection. There is no left shift or bandemia noted. No other sirs criteria. Will continue monitoring. Orders: Orders XR chest 2V 4 Weeks J18.9 - Pneumonia, unspecified organism Medications: New codeine-guaifenesin 10-100 mg/5 mL (Guaifenesin AC) 10 mL PO Q4-6H PRN 120 mL 0RF cough prednisone 40 mg (2 x 20 mg) PO DAILY 10 tabs 0RF Patient Instructions: follow up with Dr. Everett Wear CPAP Continue with daily home inhalers and albuterol as needed' Continue augmentin and azithromycin as prescribed until course completed. Do not miss/skipp doses. Take prednisone 40mg daily x5 days. Use inhalers/nebulizers as prescribed Coding Level of Care Code Est Pt Level 5 (63755) Diagnoses Hospital discharge follow-up Z09 Asthma-COPD overlap syndrome J44.9 Acute respiratory failure with hypoxia J96.01 LUIS (obstructive sleep apnea) G47.33 Pulmonary fibrosis J84.10 Pneumonia J18.9 Leukopenia D72.819 Time Spent (min) 45 Comment time reviewing above, discussion w/ pt/, documentation
[2023-04-15 12:00] VITALS: BP 110/60; PULSE 74; O2SAT 98; BMI 36.0
== END 2023-04-15 13:04 | disposition home or self-care (01) ==
PROVIDERS: PCP Internal Medicine; Visit Provider Physician Assistant
DX: J96.01 Acute respiratory failure with hypoxia (principal); J44.9 Chronic obstructive pulmonary disease, unspecified; J84.10 Pulmonary fibrosis, unspecified; J18.9 Pneumonia, unspecified organism
CPT/HCPCS: 99215

== ENCOUNTER 2023-06-02 14:42 | Outpatient (AMB) | payer MEDICARE, SELFPAY ==
--- NOTE | 2023-06-02 14:59 | A.OFFVIS_ITS ---
Intake Intake Visit Reasons: 3 month ([facility]) Intake Note: Patient presents today for a follow-up: Meds- Finasteride, Doxazosin Allergies to Antibiotic- No Known Allergies Blood Thinner- Aspirin Patient Symptoms: Patient stated he wakes up 4 to 5 times at night to urinate, he also stated he is having frequent hotflashes. Plastic Boat Buffer Required: No Accompanied by: Significant Other Allergies No Known Allergies Allergy (Verified 06/02/23 15:06) HPI HPI Comments History of Present Illness Details Kd is a pleasant male. He is a patient Dr. Raza. He is seen for following urologic conditions - prostate cancer - lower urinary tract symptoms speaks Greek, he speaks Arabic Completed external beam radiation April 2023 Has had some urgency and frequency Will switch to tamsulosin Had been on terazosin Refill finasteride Also reports hot flashes waking him at night. Trial gabapentin Three-month follow-up lab work Prostate Cancer: 08/24 High volume Grade Group 3 - GnRH 11/23 - [facility] with EXBRT plus GnRH Apr [address] [facility] [address]. Kennedy Diagnosed by Dr. Lynn, PSA 8.8 free PSA 5% Biopsy pT1c Ramsey score: 4+3=7 (left apex medial, right base medial), 3+4=7 (left mid medial, right base lateral and medial, right mid lateral and medial, right apex medial), 3+3= 6 (left base lateral, left mid lateral, left apex lateral, right apex lateral) Number cores positive: 12 Total number of cores: 12 % of tissue involved: 30% of all tissue examined Periprostatic fat inv.: Not identified Seminal vesicle inv.: Not identified Perineural inv.: Present, multifocal LVI: Not identified Staging - 10/24 PET-CT no giovanny disease - 12/24 prostate MRI anterior 1.2 cm lesi on, 30 g prostate, no evidence of extracapsular extension Lower urinary tract symptoms with elevated PSA Prior evaluation in [place] Did not continue evaluation secondary to COVID Referred for elevated PSA 02/22 15 Nocturia x3 No prior prostate medications DANA 2+ firm Suggest bladder ultrasound, finasteride, terazosin 5 mg and follow-up cystoscopy PFS Medical History Asthma-COPD overlap syndrome Personal history of colonic polyps Pre-op chest exam Left knee pain Annual physical exam Obese Pulmonary nodules Hiatal hernia Hiatal hernia Obesity (BMI 30-39.9) Benign essential hypertension Pure hypercholesterolemia Diabetes mellitus Coronary artery disease LUIS (obstructive sleep apnea) Chronic cough Degenerative disc disease Lung fibrosis Bronchial asthma HTN (hypertension) Surgical History Hx of prostate biopsy History of esophagogastroduodenoscopy (EGD) Hx of colonoscopy S/P arterial stent Social History Housing: Apartment Alcohol intake: current Alcohol intake frequency: holidays/special occasions only Patient Tobacco Use Status: Never used Tobacco e-Cigarette/Vaping Use: Never Used Second Hand Smoke Exposure: No Substance Use Type: Marijuana service: No Current occupational status: disabled Cognitive needs: No Hearing needs: No Vision needs: Yes Review of Systems Const Denies chills and Denies fever(s) Card Reports no additional complaints and Denies syncope Resp Denies cough GI Denies abdominal pain and Denies heartburn Reports as per HPI and Denies change in libido Neuro Denies syncope Psych Denies change in libido Endo Denies change in libido Physical Exam Const General: cooperative, healthy appearing, comfortable and no acute distress Orientation/consciousness: patient oriented x3 HEENT Face and sinus: Yes normal facial exam Mouth: moist mucous membranes Neck Neck: Yes normal visual inspection, Yes full ROM and Yes trachea midline Chest Chest palpation & inspection: normal inspection of the chest Resp Effort & Inspection: normal respiratory effort, able to speak in complete sentences and no respiratory distress GI Inspection: Yes normal to inspection Back/Spine/Pelvis Cervical Spine: normal cervical lordosis Thoracic/Lumbar Spine: thoracic and lumbar spine normal to inspection Skin General skin exam: no rashes or lesions noted Neuro General: patient oriented x3, gait normal, tone normal and moves all extremities Extrem General: Yes normal to inspection and Yes capillary refill normal Assessment & Plan Assessment & Plan (1) Hot flashes related to aromatase inhibitor therapy: Code(s): R23.2 - [place]; T45.1X5A - Adverse effect of antineoplastic and immunosuppressive drugs, initial encounter Plan Two month follow-up labs tele Medications: New tamsulosin 0.4 mg PO BEDTIME 90 caps 1RF 90 days C61 - Malignant neoplasm of prostate gabapentin 300 mg PO BEDTIME 30 caps 0RF 30 days R23.2 - [place], T45.1X5A - Adverse effect of antineoplastic and immunosuppressive drugs, initial encounter, T50.905A - Adverse effect of unspecified drugs, medicaments and biological substances, initial encounter Patient Instructions: Imaging studies, laboratory and physical exam results were discussed and reviewed in detail. No major barriers to patient understanding were identified. An opportunity to ask questions regarding the treatment plan was provided. All questions were answered. The patient expressed understanding and agreement with the above treatment plan. The patient is aware they should contact our office by phone for worsening of their current condition or the appearance of new urologic symptoms. Compliance is encouraged with any medications and followup testing that is ordered. It is a privilege to participate in the urologic care of your patient. If you have any questions or concerns regarding treatment for the above conditions, or other urologic issues, please do not hesitate to contact me. The office telephone contact is [phone]. This note is constructed using voice recognition software. While every effort has been made to ensure accuracy trim attacher errors may have been included. Yours sincerely, Dr Inocencio Lynn MD, [facility] - Urology Providers of Expert, Compassionate Care for the Genitourinary System Coding Level of Care Code Est Pt Level 3 (08778) Diagnoses Hot flashes related to aromatase inhibitor therapy R23.2; T45.1X5A
== END 2023-06-02 15:22 | disposition home or self-care (01) ==
PROVIDERS: PCP Internal Medicine; Visit Provider Urology
DX: R23.2 Flushing (principal); T45.1X5A Adverse effect of antineoplastic and immunosuppressive drugs, initial encounter
CPT/HCPCS: 99213

== ENCOUNTER → 2023-06-02 14:42 | Outpatient (BNVA) | payer MEDICARE, SELFPAY | PROVIDERS: PCP Internal Medicine; Visit Provider Urology | DX: C61 Malignant neoplasm of prostate (principal); R23.2 Flushing; T45.1X5A Adverse effect of antineoplastic and immunosuppressive drugs, initial encounter; Z92.3 Personal history of irradiation | CPT/HCPCS: 99212 ==

== ENCOUNTER 2023-06-17 07:03 | Outpatient (REF) | payer MEDICARE, SELFPAY ==
[2023-06-17 07:18] LABS: MANUAL DIFF FLAG NO
[2023-06-17 08:14] LABS: Appearance Urine Clear; Color Urine Yellow; Glucose Urine UA Negative (Negative); Leukocyte Esterase Urine Negative (Negative); Nitrite Urine Negative (Negative); PH 5.5 (5.0-9.0); Specific Gravity - Urine 1.015 (1.005-1.025); Urine Blood Negative (Negative); Urine Ketones Negative (Negative); Urine Protein Negative (Neg-Trace)
[2023-06-17 08:16] LABS: Basophils Percent Auto 0.4 % (0-2); Eosinophils Absolute Auto 0.1 X10*3/uL (0.0-0.4); Eosinophils Percent Auto 4.2 % (0-4); Hematocrit 41.6 % (42.0-52.0); Hemoglobin 14.5 g/dl (14.0-18.0); Lymphocytes Absolute Auto 0.7 X10*3/uL (1.2-4.9); Mean Corpuscular HGB Conc 34.9 g/dl (31.0-36.0); Mean Corpuscular Hemoglobin 31.3 pg (27.0-33.0); Mean Corpuscular Volume 89.8 fL (80.0-98.0); Mean Platelet Volume 10.4 fL (9.4-12.4); Monocytes Absolute Auto 0.5 X10*3/uL (0.1-1.2); Monocytes Percent Auto 19.7 % (2-11); Neutrophils Absolute Auto 1.3 x10*3/uL (2.0-8.3); Neutrophils Percent Auto 47.7 % (45-73); Platelet Count 210 X10*3/uL (160-400); Red Blood Count 4.63 X10*6/uL (4.60-5.80); Red Cell Distribution Width 16.4 % (11.0-16.0); White Blood Count 2.6 X10*3/uL (4.8-10.8)
[2023-06-17 08:22] LABS: Estimated Average Glucose 120 mg/dL; Hemoglobin A1c % 5.8 % (<6.0)
[2023-06-17 08:26] LABS: Blood Urea Nitrogen 14 mg/dL (9-16)
[2023-06-17 08:33] LABS: Alanine Aminotransferase 37 U/L (0-40); Albumin Level 4.1 g/dL (3.5-5.0); Alkaline Phosphatase 62 U/L (39-117); Anion Gap 11 (12-20); Aspartate Amino Transferase 27 U/L (5-37); Bilirubin Total 0.6 mg/dL (0.0-1.0); Blood Urea Nitrogen 14 mg/dL (9-16); Calcium 9.9 mg/dL (8.4-10.2); Carbon Dioxide 26 mmol/L (22-29); Chloride 107 mmol/L (96-108); Cholesterol 159 mg/dL (<200); Estimated Glomerular Filt Rate > 60; Glucose Fasting 99 mg/dL (60-99); HDL Cholesterol 72 mg/dL (>40); LDL Cholesterol Calculated 78 mg/dL (<100); Potassium 4.1 mmol/L (3.3-5.1); Sodium 140 mmol/L (135-145); Total Protein 6.9 g/dL (6.5-8.0); Triglycerides 49 mg/dL (<150)
[2023-06-17 08:42] LABS: Creatinine Urine 118.16 mg/dL; Microalbum/Creatinine Ratio Ur 9.3 ug/mg cr (<30)
[2023-06-17 08:46] LABS: Prostate Specific Antigen < 0.10 ng/mL (<0.05-4.0)
[2023-06-17 08:50] LABS: TSH reflex Free T4 1.06 uIU/mL (0.32-4.0); Vitamin D 25-OH Total 21.2 ng/mL (>30)
== END 2023-06-17 07:04 | disposition home or self-care (01) ==
LOC: HO.LAB 07:03
PROVIDERS: Urology; PCP Internal Medicine; Visit Provider Internal Medicine
DX: C61 Malignant neoplasm of prostate (principal); R30.0 Dysuria; E11.9 Type 2 diabetes mellitus without complications; I10 Essential (primary) hypertension; E78.00 Pure hypercholesterolemia, unspecified; E55.9 Vitamin D deficiency, unspecified; Z12.5 Encounter for screening for malignant neoplasm of prostate
CPT/HCPCS: 36415; 80053; 80061; 81003; 82043; 82306; 82570; 83036; 84153; 84443; 84520; 85025

== ENCOUNTER 2023-06-22 13:12 | Outpatient (AMB) | payer MEDICARE, SELFPAY ==
[2023-06-22 13:19] VITALS: BP 116/80; PULSE 77; O2SAT 98; BMI 36.4
--- NOTE | 2023-06-22 13:19 | A.OFFPC_ITS ---
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 Required: No Accompanied by: Self / Same As Patient Allergies No Known Allergies Allergy (Verified 02/10/24 12:37) Medication List - Last Reconciled 06/22/23 by Clayton Raza MD albuterol sulfate 90 mcg/actuation (Ventolin HFA) 2 puffs inhalation Q6H PRN albuterol sulfate 2.5 mg inhalation QID PRN amlodipine 10 mg PO DAILY 90 days aspirin 81 mg PO DAILY 90 days blood pressure test kit-large As directed doxazosin 4 mg PO DAILY 90 days enalapril maleate 20 mg PO DAILY finasteride 5 mg PO DAILY 90 days fluticasone furoate-vilanterol 100-25 mcg/dose (Breo Ellipta) 1 inh inhalation DAILY fluticasone propionate 50 mcg/actuation 1 spray intranasal DAILY PRN gabapentin 300 mg PO BEDTIME 30 days metformin 250 mg (1/2 x 500 mg) PO DAILY 30 days rosuvastatin 40 mg PO DAILY tamsulosin 0.4 mg PO BEDTIME 90 days Tobacco use date assessed: 04/15/23 Dental Screening Dental Screen Date: 06/22/23 Did you have a dental visit in the last 12 months?: No Did you have a dental problem in the last 6 months where you did not have access to dental care?: No Was dental information given to patient?: No HPI DM, hyperlipidemia, prostate cancer HPI Details Patient comes in today for his follow up visit States that he has been experiencing increased pain over his lower back lately He has also been experiencing increased pain over his left shoulder since he fell from his bed last week He has a large cyst on his left forearm as well - states that the cyst has been there for a while now patient feels that this has gotten bigger lately States that the cyst does not hurt He denies any headaches or dizziness Denies any chest pains, no shortness of breath No nausea/vomiting, no abdominal pain No change in bowel habits noted States that he needs Rx for bed pads and a walker He had his follow up labs done a few days ago -to discuss his results [facility] Medical History (Updated 02/15/24 @ 04:11 by Clayton Raza MD) Osteoarthritis of both hands Asthma-COPD overlap syndrome Personal history of colonic polyps Pre-op chest exam Left knee pain Annual physical exam Obese Pulmonary nodules Hiatal hernia Obesity (BMI 30-39.9) Benign essential hypertension Pure hypercholesterolemia Diabetes mellitus Coronary artery disease LUIS (obstructive sleep apnea) Chronic cough Degenerative disc disease Lung fibrosis Bronchial asthma Surgical History Hx of prostate biopsy History of esophagogastroduodenoscopy (EGD) Hx of colonoscopy S/P arterial stent Social History Housing: Apartment Alcohol intake: current Alcohol intake frequency: holidays/special occasions only Patient Tobacco Use Status: Never used Tobacco e-Cigarette/Vaping Use: Never Used Second Hand Smoke Exposure: No Substance Use Type: Marijuana service: No Current occupational status: disabled Cognitive needs: No Hearing needs: No Vision needs: Yes Questionnaire PHQ-9 Over the last 2 weeks, how often have you been bothered by any of the following problems? 1. Little interest or pleasure in doing things: not at all 2. Feeling down, depressed, or hopeless: not at all 3. Trouble falling or staying asleep, or sleeping too much: not at all 4. Feeling tired or having little energy: not at all 5. Poor appetite or overeating: not at all 6. Feeling bad about yourself - or that you are a failure or have let yourself or your family down: not at all 7. Trouble concentrating on things, such as reading the newspaper or watching television: not at all 8. Moving or speaking so slowly that other people could have noticed. Or the opposite - being so fidgety or restless that you have been moving around a lot more than usual: not at all 9. Thoughts that you would be better off or of hurting yourself in some way: not at all Total score: 0 Depression Screening Interpretation: Negative Depression Screening Done: Yes 43686 - PHQ-9 Billing: Yes Source: Developed by Drs. Aram Christopher, Carrie Dimas, Urban Denney and colleagues, with an educational bud from [employer]. Thrive Questionnaire Date Thrive assessed: 06/22/23 I am a: Patient What is your living situation today?: I have a steady place to live Within the past 12 months, did the food you bought not last and you didn't have the money to get more?: Never true Within the past 12 months, did you worry whether your food would run out before you got money to buy more?: Never true Do you have trouble paying for medicines?: No Do you have trouble getting transportation to medical appointments?: No Do you have trouble paying your heating and electricity bill?: No Do you have trouble taking care of your child, family member or friend?: No Do you have trouble with day-to-day activities such as bathing, preparing meals, shopping, managing finances, etc.?: No Are you currently unemployed and looking for a job?: No Are you interested in more education?: No Please select the resources that you would like help with: None Currently or been in a relationship where the following occur: no concerns reported THRIVE Score: 0 AUDIT C Alcohol Use Questionnaire (AUDIT-C) 1. How often do you have a drink containing alcohol?: Monthly or less 2. How many drinks containing alcohol do you have on a typical day when you are drinking?: 1 or 2 3. How often do you have six or more drinks on one occasion?: Never Total Score: 1 Score Reviewed/Action Taken: Yes JUAN LUIS-7 AMB Questionnaire JUAN LUIS-7 Date JUAN LUIS - 7 assessed: 06/22/23 Feeling nervous, anxious, or on edge: 0 = Not at all Not being able to stop or control worryin = Not at all Worrying too much about different things: 0 = Not at all Trouble relaxin = Not at all Being so restless that it is hard to sit still: 0 = Not at all Becoming easily annoyed or irritable: 0 = Not at all Feeling afraid as if something awful might happen: 0 = Not at all Total JUAN LUIS-7 score (0-4 normal; 5-9 mild; 10-14 moderate; 15-21 severe): 0 Source: Developed by Drs. Aram Christopher, Urban Becerra and colleagues, with an educational bud from [employer]. Review of Systems Const Denies fatigue, Denies fever(s) and Denies headache(s) ENT Denies dysphagia, Denies dizziness, Denies otalgia, Denies headache(s), Denies neck pain, Denies odynophagia and Denies sore throat Card Denies chest pain, Denies palpitations and Denies dyspnea Resp Denies cough and Denies dyspnea GI Denies abdominal pain, Denies constipation, Denies dysphagia, Denies heartburn, Denies diarrhea, Denies nausea, Denies odynophagia and Denies vomiting Denies dysuria, Denies nocturia and Denies urinary frequency Musc Reports back pain (over the lower back - increased), Reports arthralgias (left shoulder - s/p fell from bed) and Denies neck pain Skin/Breast Details: (+) large cyst on the left forearm Denies rash Neuro Denies dizziness and Denies headache(s) Endo Denies fatigue and Denies palpitations Physical exam (Primary Care) Vital Signs: Last Vital Signs Pulse 77 06/22/23 13:19 BP 116/80 06/22/23 13:19 Pulse Ox 98 06/22/23 13:19 Oxygen Delivery Method Room Air 06/22/23 13:19 BMI result Body Mass Index 36.4 Tobacco/Smoking Status: Tobacco use Status Tobacco use date assessed 04/15/23 06/22/23 13:20 Patient Tobacco Use Status Never used Tobacco 06/22/23 13:20 e-Cigarette/Vaping Use Never Used 06/22/23 13:20 PHQ-9: PHQ-9 Score PHQ-9: Total score 0 06/22/23 14:17 Depression Screening Interpretation: Negative Thrive Assessment: Date of Thrive Assessment Date Thrive assessed 06/22/23 06/22/23 13:20 Currently or been in a relationship where the following occur: no concerns reported Const General: no acute distress and alert HENMT Ears: TM's normal bilaterally and EAC's normal Throat: Yes posterior oropharynx normal and Yes tonsils normal (no TP congestion) Neck Neck: Yes no lymphadenopathy and Yes supple Thyroid: Thyroid normal Resp Auscultation: no rales, no wheezes and diminished lung sounds (slightly) bilateral Cardio Rate: regular rate Rhythm: regular rhythm Heart sounds: no murmurs GI Palpation (GI): Soft to palpation and nontender Auscultation: normal bowel sounds General: Yes no CVA tenderness Back/Spine/Pelvis Back: no CVA tenderness Thoracic/Lumbar Spine: lumbar spinal tenderness Skin Other: (+) large cystic, non-tender lesion on the left forearm Rashes: no rashes Extrem General: Yes no clubbing, cyanosis or edema Left upper extremity: shoulder/upper arm Details: tenderness Location: of the A- C joint Right lower extremity: knee Details: tenderness; no swelling Left lower extremity: knee Details: tenderness; no swelling Results Reviewed Results Reviewed: Laboratory Tests 06/17/23 06/17/23 06/17/23 07:15 07:15 07:15 WBC Hgb Hct Plt Count Sodium Potassium Creatinine Estimated GFR Fasting Glucose Hemoglobin A1c % Calcium AST ALT Triglycerides Cholesterol LDL Cholesterol, Calc HDL Cholesterol Prostate Specific Ag 25-OH Vitamin D Total TSH Ur Specific [place] 1.015 Urine Protein Negative Urine Glucose (UA) Negative Urine Blood Negative Urine Nitrite Negative Ur Leukocyte Esterase Negative Microalb/Creat Ratio 9.3 06/17/23 06/17/23 06/17/23 07:16 07:16 07:16 WBC 2.6 L Hgb 14.5 Hct 41.6 L Plt Count 210 D Sodium 140 Potassium 4.1 Creatinine 0.84 Estimated GFR > 60 Fasting Glucose 99 Hemoglobin A1c % 5.8 Calcium 9.9 D AST 27 ALT 37 Triglycerides 49 Cholesterol 159 LDL Cholesterol, Calc 78 HDL Cholesterol 72 Prostate Specific Ag < 0.10 25-OH Vitamin D Total 21.2 L TSH 1.06 Ur Specific [place] Urine Protein Urine Glucose (UA) Urine Blood Urine Nitrite Ur Leukocyte Esterase Microalb/Creat Ratio Coding Level of Care Code Est Pt Level 4 (00795) Diagnoses Pulmonary fibrosis J84.10 Moderate persistent asthma without complication J45.40 Asthma severity: moderate Asthma persistence: persistent Asthma complication type: uncomplicated Coronary artery disease involving [place] coronary artery of [place] heart without angina pectoris I25.10 Associated angina: without angina Coronary Disease-Associated Artery/Lesion type: [place] artery [place] vs. transplanted heart: [place] heart Type 2 diabetes mellitus without complication, without long-term current use of insulin E11.9 Diabetes mellitus complication status: without complication Diabetes mellitus remote computer terminal operator insulin use: without remote computer terminal operator use Diabetes mellitus type: type 2 Pure hypercholesterolemia E78.00 Benign essential hypertension I10 Prostate cancer C61 Arthralgia of both hands M25.541; M25.542 Left shoulder pain, unspecified chronicity M25.512 Chronicity: unspecified Left knee pain, unspecified chronicity M25.562 Chronicity: unspecified Midline low back pain without sciatica, unspecified chronicity M54.50 Chronicity: unspecified Back pain laterality: midline Sciatica presence: without sciatica Gastroesophageal reflux disease without esophagitis K21.9 Esophagitis presence: without esophagitis Obesity (BMI 30-39.9) E66.9
== END 2023-06-22 14:23 | disposition home or self-care (01) ==
PROVIDERS: PCP Internal Medicine; Visit Provider Internal Medicine
DX: J84.10 Pulmonary fibrosis, unspecified (principal); E11.9 Type 2 diabetes mellitus without complications; C61 Malignant neoplasm of prostate; J45.40 Moderate persistent asthma, uncomplicated; I25.10 Atherosclerotic heart disease of native coronary artery without angina pectoris; E78.00 Pure hypercholesterolemia, unspecified; I10 Essential (primary) hypertension; M25.541 Pain in joints of right hand; M25.542 Pain in joints of left hand; M25.512 Pain in left shoulder; M25.562 Pain in left knee; M54.50 Low back pain, unspecified
CPT/HCPCS: 99499

== ENCOUNTER 2023-07-07 10:24 | Outpatient (REF) | payer MEDICARE, SELFPAY ==
--- NOTE | ~2023-07-07 | XR_ITS ---
EXAMINATION: XR LUMBOSACRAL SPINE CLINICAL INFORMATION: Low back pain. COMPARISON: None available. TECHNIQUE: Three views of the lumbosacral spine. FINDINGS: Trace retrolisthesis of L5 on S1, otherwise anatomic alignment. No evidence of acute compression deformity. Moderate intervertebral disc height loss at L5-S1 and mild intervertebral disc height loss at L3-L4 and L4-L5. Moderate facet arthropathy at L5-S1 leading to neural foraminal encroachment. Mild facet arthropathy at L4-L5. Prominent anterior osteophytes at T10, T11, L4, L5 and S1. Prominent left lateral osteophytes at L2, L3 and L4. Symmetric SI joints. Pelvic ring and pubic symphysis are maintained. Two metallic densities overlie the region of the pubic symphysis, correlate with prior surgical history. Small pelvic phleboliths are seen. No significant paraspinal soft tissue abnormality. Scattered atherosclerotic disease of the abdominal aorta. XR/XR lumbar spine 2-3V IMPRESSION: 1. No evidence of acute compression deformity. 2. Trace retrolisthesis of L5 on S1, otherwise anatomic alignment. 3. Multilevel lumbar spondylosis more pronounced at L5-S1 where there is neural foraminal encroachment. Very prominent left lateral osteophytes at L2 and L3.
--- NOTE | ~2023-07-07 | XR_ITS ---
EXAMINATION: XR SHOULDER, LEFT CLINICAL INFORMATION: Pain. COMPARISON: Chest radiograph 04/13/2023. TECHNIQUE: Four views of the left shoulder. FINDINGS: Mild degenerative arthrosis of the acromioclavicular joint. Chronic unchanged osseous protuberance in the coracoid process. No fracture or subluxation. Visualized left-sided ribs are within normal limits. No significant soft tissue abnormality. No unusual soft tissue calcifications. Stable interstitial thickening in the left lung. XR/XR shoulder LT min 2V IMPRESSION: 1. No acute fractures or subluxation. 2. Mild degenerative arthrosis of the acromioclavicular joint. 3. Chronic unchanged osseous protuberance in the coracoid process.
[2023-07-07 12:07] LABS: MANUAL DIFF FLAG NO
[2023-07-07 12:11] LABS: Basophils Percent Auto 0.6 % (0-2); Eosinophils Absolute Auto 0.1 X10*3/uL (0.0-0.4); Eosinophils Percent Auto 1.9 % (0-4); Hematocrit 40.8 % (42.0-52.0); Hemoglobin 14.2 g/dl (14.0-18.0); Imm Gran Abs Auto 0.01 X10*3/uL (0.00-0.03); Imm Gran Pct Auto 0.3 % (0.0-0.4); Lymphocytes Absolute Auto 0.7 X10*3/uL (1.2-4.9); Lymphocytes Percent Auto 21.2 % (20-40); Mean Corpuscular HGB Conc 34.8 g/dl (31.0-36.0); Mean Corpuscular Hemoglobin 31.1 pg (27.0-33.0); Mean Corpuscular Volume 89.3 fL (80.0-98.0); Mean Platelet Volume 9.2 fL (9.4-12.4); Monocytes Absolute Auto 0.5 X10*3/uL (0.1-1.2); Monocytes Percent Auto 15.2 % (2-11); Neutrophils Absolute Auto 1.9 x10*3/uL (2.0-8.3); Neutrophils Percent Auto 60.8 % (45-73); Platelet Count 238 X10*3/uL (160-400); Red Blood Count 4.57 X10*6/uL (4.60-5.80); Red Cell Distribution Width 15.7 % (11.0-16.0); White Blood Count 3.2 X10*3/uL (4.8-10.8)
[2023-07-07 12:52] LABS: Estimated Glomerular Filt Rate > 60
[2023-07-07 13:19] LABS: Erythrocyte Sedimentation Rate 7 MM/HR (0-15)
[2023-07-12 19:19] LABS: Immunoglobulin E 41 kU/L (<OR=114)
== END 2023-07-07 10:25 | disposition home or self-care (01) ==
LOC: HO.XRAY 10:24
PROVIDERS: Absent Provider Urology; PCP Internal Medicine; Visit Provider Hospitalist
DX: M54.50 Low back pain, unspecified (principal); M25.512 Pain in left shoulder; J44.9 Chronic obstructive pulmonary disease, unspecified; C61 Malignant neoplasm of prostate; Z91.81 History of falling
CPT/HCPCS: 36415; 72100; 73030; 82565; 82785; 85025; 85652; 99212

== ENCOUNTER 2023-07-07 10:24 | Outpatient (AMB) | payer MEDICARE, SELFPAY ==
[2023-07-07 11:05] VITALS: PULSE 79; O2SAT 95; BMI 35.9
--- NOTE | 2023-07-07 11:05 | A.OFFVIS_ITS ---
Intake Vital Signs 07/07/23 11:05 Height 5 ft 10 in Weight 250 lb BMI 35.9 Pulse 79 Pulse Source Pulse Oximeter Pulse Oximetry (%) 95 Oxygen Delivery Method Room Air Intake Visit Reasons: follow up i haven't seen him [facility] Social Worker Required: No Allergies No Known Allergies Allergy (Verified 07/07/23 11:06) HPI HPI Comments History of Present Illness Details The patient is a 58-year-old gentleman who recently moved to the area from [place]. 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 His condition was advanced and required oxygen supplementation in even considered to be a candidate for lung transplantation. His condition improved significantly. He had a cardiac evaluation did require a percutaneous intervention with 1 stent. The patient also was evaluated by Pulmonary and placed on respiratory therapy with significant improvement of his overall status. The patient did have significant weight loss with exercise and also improved her respiratory status. Slowly was able to get off the oxygen. While he was in the ER she was evaluated for sleep apnea. The patient does have significant snoring and significant cardiovascular risk factors. He was diagnosed with sleep apnea and he was prescribed the CPAP. However he was not given instructions on how to use it and at that time he was moving out of the state therefore he returned the machine. Currently he is still having daytime drowsiness. His Elgin score is elevated 11 of 24. His was present in the room also documented snoring and also apneic episodes. The patient does benefit from having a repeat sleep study to further address his sleep apnea condition. During the visit we did go for walking oximetry. The patient was able to maintain a pulse ox of 94% with activity which is reassuring that he does not qualify for oxygen. He was indeed dyspneic with dyspnea score of 7/10 on the completion of the 6 minute walk test. The patient was per the sedating and pulmonary rehabilitation in [place]. The patient will benefit from pulmonary rehabilitation also here at [place]. Will discuss that further after undergoing pulmonary function studies and further imaging studies. I did review his chest x-ray that he had back in 2020 with no evidence of any acute disease. I do not appreciate any evidence of any reticular nodular opacities to suggest interstitial lung disease. as far as exposures he did work in [place] for about 6-7 years in [place]. 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 He would end up with significant amount of dust in his body. 01/10/2022 the patient is here for a pulmonary follow-up visit. Overall he is doing better. Patient is responding well to the respiratory inhalers. Does have some dyspnea on exertion wolg-zz-zqnefugn severity. Does get better with rest. We did review his recent CT scan of the chest personally by me. I did share the images with both the patient and his significant other. Appears to have some areas of scarring and some calcifications likely related to underlying pneumoconiosis or sarcoidosis. Seems to be stable without any evidence of any ground-glass opacities. Does have pulmonary nodules and to be followed. The CT scan also demonstrates and small hiatal hernia. On further questioning he does state having significant reflux issues. Patient is aware that reflux disease and worsen his interstitial lung process. Therefore needs to follow closely reflux diet. he will also start PPI times a month. In addition to that he continues to have daytime drowsiness. His Elgin score still elevated 11/24. He also has a history of pulmonary hypertension and therefore the patient does need to undergo his sleep study. He needs to call and schedule it at this time. As far as his pulmonary function studies will plan to do those with his next visit in 6 months. 10/14/2022 the patient is here for pulmon karina follow-up visit. The patient has had multiple issues. He is being closely monitored by Urology. He had a biopsy demonstrating adenocarcinoma. He also underwent a PET scan confirming the findings. I did personally review the PET scan along with the CT scan images d emonstrating pulmonary nodules largest 1 measuring 8 mm. None of the nodules demonstrated any FDG activity which is reassuring. Some of the nodules were below the after CF PET scan however. She will need to have those nodules monitor closely. The patient does have a history pulmonary fibrosis but I do not appreciate significant interstitial lung disease at this time. He is using his respiratory medicines with good effect. Denies any significant daytime drowsiness. He opted and not having the sleep study. He did follow-up with GI regarding his GI symptoms. Currently feeling better although still having some issues with reflux. From a pulmonary standpoint the patient will undergo spirometry today. If the patient does need to undergo surgery at this point the patient is medically optimized from a respiratory status. He does have mild risk for perioperative pulmonary complications which includes atelectasis, hypoxia, pneumonia and prolonged mechanical ventilation. The patient is able to receive with consent for both anesthesia and surgery if required. Spirometry from today demonstrating a moderate restrictive ventilatory defect consistent moderate COPD. 07/07/2023 the patient is here for a pulmo nary follow-up visit. The patient has been having hard time for the last few weeks. He complaining of increasing chest tightness and wheezing. Moderate severity. He has been trying to get albuterol for his nebulizer and has not been able to do so. Denies any sick contacts denies any fevers or chills. He does have a cough congested in nature with white to yellowish phlegm. Hyjy-np-vafvdkuq severity. He has been using the Breo inhaler. Still having ongoing symptoms requiring his rescue inhaler multiple times a day. Will switch him over to Trelegy for better coverage. In the meantime will send him albuterol to treat his COPD. The patient should use it twice a day. In the meantime gotten treat him for lower respiratory infection and COPD exacerbation. Patient did complete his treatment for his prostate cancer which is reassuring. We did look at his last CT scan of the chest which was back in January 2023 demonstrating stable pulmonary nodules. Will discuss further additional testing during his next visit in 4-6 months. [facility] Medical History Asthma-COPD overlap syndrome Personal history of colonic polyps Pre-op chest exam Left knee pain Annual physical exam Obese Pulmonary nodules Hiatal hernia Hiatal hernia Obesity (BMI 30-39.9) Benign essential hypertension Pure hypercholesterolemia Diabetes mellitus Coronary artery disease LUIS (obstructive sleep apnea) Chronic cough Degenerative disc disease Lung fibrosis Bronchial asthma HTN (hypertension) Surgical History Hx of prostate biopsy History of esophagogastroduodenoscopy (EGD) Hx of colonoscopy S/P arterial stent Social History Housing: Apartment Alcohol intake: current Alcohol intake frequency: holidays/special occasions only Patient Tobacco Use Status: Never used Tobacco e-Cigarette/Vaping Use: Never Used Second Hand Smoke Exposure: No Substance Use Type: Marijuana service: No Current occupational status: disabled Cognitive needs: No Hearing needs: No Vision needs: Yes Review of Systems Const Denies headache(s) Eyes Denies loss of vision ENT Denies vertigo, Denies dizziness, Denies headache(s) and Denies sore throat Card Denies chest pain, Denies leg edema, Denies lightheadedness and Reports dyspnea on exertion Resp Reports cough, Denies hemoptysis, Reports dyspnea on exertion and Reports wheez ing GI Denies abdominal pain, Denies melena, Denies constipation, Denies diarrhea and Denies vomiting Denies dysuria, Denies urinary frequency and Denies urinary urgency Musc Denies arthralgias, Denies joint swelling, Denies numbness and Denies tingling Neuro Denies Abnormal speech present, Denies behavioral changes, Denies vertigo, Denies dizziness, Denies headache(s), Denies loss of vision, Denies memory loss, Denies numbness and Denies tingling Psych Denies anxiety, Denies behavioral changes, Denies depression, Denies memory loss and Denies panic attacks Dale/Lymph Denies easy bleeding and Denies easy bruising Aller/Immun Reports wheezing Physical Exam Vital Signs: Last Vital Signs Pulse 79 07/07/23 11:05 Pulse Ox 95 07/07/23 11:05 Oxygen Delivery Method Room Air 07/07/23 11:05 BMI result Body Mass Index 35.9 Const General: alert Neck Neck: Yes normal visual inspection, Yes full ROM and Yes no lymphadenopathy Chest Chest palpation & inspection: normal inspection of the chest Resp Effort & Inspection: prolonged expiratory phase Auscultation: rhonchi, wheezes and diminished lung sounds Cardio Rate: regular rate Rhythm: regular rhythm Heart sounds: S1 normal heart sound present and S2 normal heart sound present GI Palpation (GI): Soft to palpation and nontender Auscultation: normal bowel sounds Skin General skin exam: rashes and/or lesions noted Neuro Speech: No Abnormal speech present Assessment & Plan Assessment & Plan (1) COPD exacerbation: Code(s): J44.1 - Chronic obstructive pulmonary disease with (acute) exacerbation (2) Pulmonary fibrosis: Code(s): J84.10 - Pulmonary fibrosis, unspecified (3) Chronic cough: Code(s): R05.3 - Chronic cough (4) LUIS (obstructive sleep apnea): Code(s): G47.33 - Obstructive sleep apnea (adult) (pediatric) (5) Hiatal hernia: Code(s): K44.9 - Diaphragmatic hernia without obstruction or gangrene (6) Asthma-COPD overlap syndrome: Code(s): J44.9 - Chronic obstructive pulmonary disease, unspecified (7) Pulmonary nodules: Comment: 8mm on the PET scan from [facility] Code(s): R91.8 - Other nonspecific abnormal finding of lung field Plan needs to mara nebulizer 2 times aday start Prednisone start Doxycycline Bloodwork continue Trelegy 200 short-acting beta agonist as needed fluticasone nasal spray sleep elevated Repeat CT chest Fall 2023 Continue with tobacco cessation. He is slowly cutting down F/U 3-4 months Orders: Orders Immunoglobulin E Today J44.9 - Chronic obstructive pulmonary disease, unspecified Overnight Pulse Oximetry Today J44.9 - Chronic obstructive pulmonary disease, unspecified Complete Blood Count Auto Diff Today J44.9 - Chronic obstructive pulmonary disease, unspecified Erythrocyte Sedimentation Rate Today J44.9 - Chronic obstructive pulmonary disease, unspecified Medications: New albuterol sulfate 2.5 mg (3 mL) inhalation BID 30 days 180 mL 11RF J44.9 - Chronic obstructive pulmonary disease, unspecified vmsxyfkufzd-qtzwiegzq-vqjimwsp 200-62.5-25 mcg (Trelegy Ellipta) 1 inh inhalation DAILY 30 days 60 ea 12RF doxycycline hyclate 100 mg PO BID 10 days 20 caps 0RF prednisone PO daily; Take 2 tab daily x 5 days, then 1 tab daily x 5 days 10 days 15 tabs 0RF Discontinued fluticasone furoate-vilanterol 100-25 mcg/dose (Breo Ellipta) Discontinued Reason: Doctor's Order 1 inh inhalation DAILY 60 ea 0RF Coding Level of Care Code Est Pt Level 4 (49367) Diagnoses COPD exacerbation J44.1 Pulmonary fibrosis J84.10 Chronic cough R05.3 LUIS (obstructive sleep apnea) G47.33 Hiatal hernia K44.9 Asthma-COPD overlap syndrome J44.9 Pulmonary nodules R91.8 Time Spent (min) 17
== END 2023-07-07 11:33 | disposition home or self-care (01) ==
PROVIDERS: PCP Internal Medicine; Visit Provider Hospitalist
DX: J44.1 Chronic obstructive pulmonary disease with (acute) exacerbation (principal); J84.10 Pulmonary fibrosis, unspecified; R05.3 Chronic cough; G47.33 Obstructive sleep apnea (adult) (pediatric); K44.9 Diaphragmatic hernia without obstruction or gangrene; J44.9 Chronic obstructive pulmonary disease, unspecified; R91.8 Other nonspecific abnormal finding of lung field
CPT/HCPCS: 99214

== ENCOUNTER 2023-08-26 10:22 | Outpatient (REF) | payer MEDICARE, SELFPAY ==
[2023-08-26 12:42] LABS: Prostate Specific Antigen < 0.10 ng/mL (<0.05-4.0)
== END 2023-08-26 10:23 | disposition home or self-care (01) ==
LOC: HO.LAB 10:22
PROVIDERS: PCP Internal Medicine; Visit Provider Urology
DX: C61 Malignant neoplasm of prostate (principal)
CPT/HCPCS: 36415; 84153; 84403

== ENCOUNTER 2023-08-27 12:23 | Outpatient (AMB) | payer OTHER, SELFPAY ==
--- NOTE | 2023-08-27 12:29 | MHC.OFFVIS ---
Vital Signs 08/27/23 12:30 Height 5 ft 10 in Weight 257 lb 15.053 oz BMI 37.0 BP 110/70 Blood Pressure Location Lt brachial Position Sitting Pulse 78 Intake Visit Reasons: 1 yr f/up Intake Note: 1 year follow-up with ekg feeling good Bid Clerk Required: Yes Bid Clerk Name: Leidy terrazas Allergies No Known Allergies Allergy (Verified 07/07/23 11:06) Medication List - Last Reconciled 08/27/23 by Akbar Banuelos MD albuterol sulfate 90 mcg/actuation (Ventolin HFA) 2 puffs inhalation Q6H PRN albuterol sulfate 2.5 mg inhalation QID PRN albuterol sulfate 2.5 mg (3 mL) inhalation BID 30 days amlodipine 10 mg PO DAILY 90 days aspirin 81 mg PO DAILY 90 days blood pressure test kit-large As directed [DISPOSABLE BED PADS As directed] enalapril maleate 20 mg PO DAILY finasteride 5 mg PO DAILY 90 days fluticasone propionate 50 mcg/actuation 1 spray intranasal DAILY PRN spflscdtpew-crtvafzve-swlzdghb 200-62.5-25 mcg (Trelegy Ellipta) 1 inh inhalation DAILY 30 days gabapentin 300 mg PO BEDTIME 30 days metformin 250 mg (1/2 x 500 mg) PO DAILY 30 days nebulizers As directed rosuvastatin 40 mg PO DAILY tamsulosin 0.4 mg PO BEDTIME 90 days [WHEELED WALKER As directed] HPI Comments Details: Kd comes for follow-up. History was obtained with help of a certified stockfeed miller over the telephone. Patient denies any cardiac symptoms. He said he underwent radiation therapy for prostate and now is doing well. He said prostate condition is under control. His LDL last measured was 78 mg/dL on high-intensity statin therapy. He has been taking all his medications. He has been exercising regularly but not been able to lose weight. He denies any exertional chest pain or shortness of breath that is worsening. No orthopnea, PND, leg edema. No prolonged palpitations, lightheadedness, syncope. [facility] Medical History Asthma-COPD overlap syndrome Personal history of colonic polyps Pre-op chest exam Left knee pain Annual physical exam Obese Pulmonary nodules Hiatal hernia Hiatal hernia Obesity (BMI 30-39.9) Benign essential hypertension Pure hypercholesterolemia Diabetes mellitus Coronary artery disease LUIS (obstructive sleep apnea) Chronic cough Degenerative disc disease Lung fibrosis Bronchial asthma HTN (hypertension) Surgical History Hx of prostate biopsy History of esophagogastroduodenoscopy (EGD) Hx of colonoscopy S/P arterial stent Social History Housing: Apartment Alcohol intake: current Alcohol intake frequency: holidays/special occasions only Patient Tobacco Use Status: Never used Tobacco e-Cigarette/Vaping Use: Never Used Second Hand Smoke Exposure: No Substance Use Type: Marijuana service: No Current occupational status: disabled Cognitive needs: No Hearing needs: No Vision needs: Yes Review of Systems Const Denies chills, Denies fatigue, Denies fever(s), Denies frequent falls, Denies weakness, Denies weight gain and Denies weight loss ENT Denies dizziness Card Denies chest pain, Denies leg edema, Denies lightheadedness, Denies palpitations, Denies dyspnea, Denies dyspnea on exertion, Denies orthopnea and Denies other (loss of consciousness) Resp Denies cough, Denies dyspnea and Denies dyspnea on exertion GI Denies hematochezia and Denies change in stool character Musc Denies abnormal gait, Denies muscle weakness, Denies numbness, Denies radiating pain into limb and Denies tingling Neuro Denies abnormal gait, Denies dizziness, Denies frequent falls, Denies numbness, Denies tingling and Denies weakness Endo Denies fatigue and Denies palpitations Physical Exam Vital Signs: Last Vital Signs Pulse 78 08/27/23 12:30 BP 110/70 08/27/23 12:30 BMI result Body Mass Index 37.0 Const Other: Obese General: cooperative, healthy appearing, comfortable and no acute distress Orientation/consciousness: patient oriented x3 Neck Neck: Yes normal visual inspection and Yes no JVD Resp Effort & Inspection: normal respiratory effort Auscultation: clear to auscultation bilaterally, no crackles, no rales, no rhonchi and no wheezes Cardio Jugular venous distension: no JVD Rate: regular rate Rhythm: regular rhythm Heart sounds: S1 normal heart sound present, S2 normal heart sound present, no gallops, no murmurs and no rubs GI Inspection: Yes normal to inspection Neuro General: patient oriented x3 Extrem General: Yes normal to inspection and No no pedal edema Psych Appearance: grossly normal Mental Status: mental status grossly normal Speech and movement: Normal speech and movement present Office Procedures EKG Details: EKG shows normal sinus rhythm with right atrial enlargement [id number], Complete Assessment & Plan Assessment & Plan (1) CAD (coronary artery disease): Code(s): I25.10 - Atherosclerotic heart disease of [place] coronary artery without angina pectoris Category: Medical Qualifiers: Coronary Disease-Associated Artery/Lesion type: [place] artery [place] vs. transplanted heart: [place] heart Associated angina: without angina Qualified Code(s): I25.10 - Atherosclerotic heart disease of [place] coronary artery without angina pectoris Plan: CAD, stable with prior drug-eluting stent to mid LAD for acute coronary syndrome. He is done well. Last year myocardial perfusion imaging was within normal limits. Continue aggressive medical therapy. Lifelong aspirin therapy is advised. His lipids are not well optimized and was discussed with him. Continue diet modification. However add ezetimibe 10 mg to his regimen to target goal LDL closer to 60 mg/dL in addition to rosuvastatin 40 mg daily. Continue aggressive blood pressure control. Blood pressure is currently well optimized advised to monitor blood pressure at home maintain a log. Goal blood pressure less than 130/84. Diabetes under your care with goal hemoglobin A1c less than 7%. Encouraged to participate in more aggressive weight loss program regular physical activity. He understands agrees. Follow-up lipid panel in 3 months time Will follow up in the clinic in 1 year's time, sooner p.r.n.. Orders: Orders Lipid Panel 3 Months I25.10 - Atherosclerotic heart disease of [place] coronary artery without angina pectoris Medications: New ezetimibe 10 mg PO DAILY 30 tabs 5RF Coding Level of Care Code Est Pt Level 4 (58865) Diagnoses Coronary artery disease involving [place] coronary artery of [place] heart without angina pectoris I25.10 Coronary Disease-Associated Artery/Lesion type: [place] artery [place] vs. transplanted heart: [place] heart Associated angina: without angina CPT Codes EKG - CPT: 78215-[id number], Complete ([id number])
[2023-08-27 12:30] VITALS: BP 110/70; PULSE 78; BMI 37.0
== END 2023-08-27 12:57 | disposition home or self-care (01) ==
PROVIDERS: PCP Internal Medicine; Visit Provider Internal Medicine Cardiovascular Disease
DX: I25.10 Atherosclerotic heart disease of native coronary artery without angina pectoris (principal)
CPT/HCPCS: 93010; 99214

== ENCOUNTER → 2023-08-27 12:23 | Outpatient (BNVA) | payer OTHER, SELFPAY | PROVIDERS: PCP Internal Medicine; Visit Provider Internal Medicine Cardiovascular Disease | DX: I25.10 Atherosclerotic heart disease of native coronary artery without angina pectoris (principal); Z79.899 Other long term (current) drug therapy | CPT/HCPCS: 93005; 99212 ==

== ENCOUNTER 2023-09-01 15:38 | Outpatient (AMB) | payer MEDICARE, MEDICAID, SELFPAY ==
--- NOTE | 2023-09-01 15:39 | A.OFFVIS_ITS ---
Intake Visit Reasons: 3M PSA/Testosterone(set)Confirmed Intake Note: Patient is Present for Telephone Follow Up For Urology Med: Finasteride, Tamsulosin Antibiotic Allergy: none Blood Thinner:aspirin Allergies No Known Allergies Allergy (Verified 10/13/23 14:32) HPI Comments Details: Kd is a pleasant male. He is a patient Dr. Raza. He is seen for following urologic conditions - prostate cancer - lower urinary tract symptoms Telemedicine Evaluation 15 min Consultation Doximity Sheila Video attempted speaks Syriac, he speaks Panamanian Completed external beam radiation April 2023 Has had some urgency and frequency Will switch to tamsulosin Had been on terazosin Refill finasteride Also reports hot flashes waking him at night. Trial gabapentin PSA 08/25 <0.1 Prostate Cancer: 08/24 High volume Grade Group 3 - GnRH 11/23 - [facility] with EXBRT plus GnRH Apr [address] [facility] [address]. Kennedy - 12 months GnRH Diagn[address] by Dr. Lynn, PSA 8.8 free PSA 5% Biopsy pT1c [place] score: 4+3=7 (left apex medial, right base medial), 3+4=7 (left mid medial, right base lateral and medial, right mid lateral and medial, right apex medial), 3+3= 6 (left base lateral, left mid lateral, left apex lateral, right apex lateral) Number cores positive: 12 Total number of cores: 12 % of tissue involved: 30% of all tissue examined Periprostatic fat inv.: Not identified Seminal vesicle inv.: Not identified Perineural inv.: Present, multifocal LVI: Not identified Staging - 10/24 PET-CT no giovanny disease - 12/24 prostate MRI anterior 1.2 cm lesion, 30 g prostate, no evidence of extracapsular extension Lower urinary tract symptoms with elevated PSA Prior evaluation in [place] Did not continue evaluation secondary to COVID Referred for elevated PSA 02/22 15 Nocturia x3 No prior prostate medications DANA 2+ firm Suggest bladder ultrasound, finasteride, terazosin 5 mg and follow-up cystoscopy [facility] Medical History Asthma-COPD overlap syndrome Personal history of colonic polyps Pre-op chest exam Left knee pain Annual physical exam Obese Pulmonary nodules Hiatal hernia Hiatal hernia Obesity (BMI 30-39.9) Benign essential hypertension Pure hypercholesterolemia Diabetes mellitus Coronary artery disease LUIS (obstructive sleep apnea) Chronic cough Degenerative disc disease Lung fibrosis Bronchial asthma HTN (hypertension) Surgical History Hx of prostate biopsy History of esophagogastroduodenoscopy (EGD) Hx of colonoscopy S/P arterial stent Social History Housing: Apartment Alcohol intake: current Alcohol intake frequency: holidays/special occasions only Patient Tobacco Use Status: Never used Tobacco e-Cigarette/Vaping Use: Never Used Second Hand Smoke Exposure: No Substance Use Type: Marijuana service: No Current occupational status: disabled Cognitive needs: No Hearing needs: No Vision needs: Yes Review of Systems Const All systems reviewed & are unremarkable except as noted in HPI and below Reports no additional complaints Resp Reports no additional complaints GI Reports no additional complaints Reports as per HPI Musc Reports no additional complaints Physical Exam Telemedicine evaluation Appropriate responses Regular breathing rate and rhythm HEENT Head: Yes normal to inspection Ears: hearing grossly normal bilaterally Eyes General: appearance normal, both eyes and all related structures Neck Neck: Yes normal visual inspection Chest Chest palpation & inspection: normal inspection of the chest Resp Effort & Inspection: normal respiratory effort and able to speak in complete sentences Telehealth Telehealth Telehealth Platform: ContextWeb Location of provider rendering services: practice address Location of patient: address on file Patient Identification confirmed using: Name, : Yes Telehealth method: video Patient verbally consented to treatment: Yes Patient verbally consented to billing insurance company: Yes Patient informed of any privacy concerns related to visit: Yes Minutes spent on Phone/Video with Pt.: 15 Assessment & Plan Assessment & Plan (1) Prostate cancer: Code(s): C61 - Malignant neoplasm of prostate Category: Medical (2) Hot flashes related to aromatase inhibitor therapy: Code(s): R23.2 - [place]; T45.1X5A - Adverse effect of antineoplastic and immunosuppressive drugs, initial encounter Category: Medical Plan Four month follow-up lab work Orders: Orders Prostate Specific Antigen 06/17/23 C61 - Malignant neoplasm of prostate Testosterone, Total 08/26/23 C61 - Malignant neoplasm of prostate Prostate Specific Antigen 4 Months C61 - Malignant neoplasm of prostate Prostate Specific Antigen 08/26/23 C61 - Malignant neoplasm of prostate Testosterone, Total 4 Months C61 - Malignant neoplasm of prostate Patient Instructions: Imaging studies, laboratory and physical exam results were discussed and reviewed in detail. No major barriers to patient understanding were identified. An opportunity to ask questions regarding the treatment plan was provided. All questions were answered. The patient expressed understanding and agreement with the above treatment plan. The patient is aware they should contact our office by phone for worsening of their current condition or the appearance of new urologic symptoms. Compliance is encouraged with any medications and followup testing that is ordered. It is a privilege to participate in the urologic care of your patient. If you have any questions or concerns regarding treatment for the above conditions, or other urologic issues, please do not hesitate to contact me. The office telephone contact is [phone]. This note is constructed using voice recognition software. While every effort has been made to ensure accuracy regulatory compliance director errors may have been included. Yours sincerely, Dr Inocencio Lynn MD, [facility] - Urology Providers of Expert, Compassionate Care for the Genitourinary System Coding Level of Care Code Tele Est Pt Level 3 (05059) Complex EM visit Add On G2211 Diagnoses Prostate cancer C61 Hot flashes related to aromatase inhibitor therapy R23.2; T45.1X5A
--- OUTSIDE RECORDS SUMMARY | 2023-09-01 15:39 | XMS_ITS | Continuity of Care Document ---
Author Organization [facility] C ancer Care Address [address] [place] [address]- Care Team Providers Care Meat Pickler Name Role Phone Not on Staff, PCP Primary Care Physician Unavail able [place]counter [facility] [place](s[place] 03/02/23 - 06/30/23 [facility] [address] [place] [address]- Discharge Disposition: A-D/C Home Attending Physician: Hayden Kennedy MD Admitting Physician: Hayden Kennedy MD Referring Physician: Shane CRISTOBAL, Inocencio Lopez Medications amLODIPine 10 mg oral tablet 10 mg, 1, tablet, By Mouth, Daily, # 30 tablet, Refills 0, Maintenance, 12/09/22 9:52:00 EDT, Partial fill upon patient request if the prescription is for a schedule II opioid drug. Start Date: 12/09/22 Status: Ordered aspirin 81 mg oral delayed release tablet 81 mg, 1, tablet, By Mouth, Daily, # 30 tablet, Refills 0, Maintenance, 12/09/22 9:51:00 EDT, Partial fill upon patient request if the prescription is for a schedule II opioid drug. Start Date: 12/09/22 Status: Ordered Breo Ellipta 100 mcg-25 mcg/inh inhalation powder 1 puffs, Inhalation, Daily, # 30 each, 0 Refills, Maintenance, 12/09/22 9:52:00 EDT, Powder, Partial fill upon patient request if the prescription is for a schedule II opioid drug. Start Date: 12/09/22 Status: Ordered doxazosin 4 mg oral tablet 1 tablet = 4 mg, By Mouth, Daily, # 30 tablet, 0 Refills, Maintenance, 12/09/22 9:51:00 EDT, Tablet, Partial fill upon patient request if the prescription is for a schedule II opioid drug. Start Date: 12/09/22 Status: Ordered enalapril 20 mg oral tablet 1 tablet = 20 mg, By Mouth, Daily, # 30 tablet, 0 Refills, Maintenance, 12/09/22 9:51:00 EDT, Tablet, Partial fill upon patient request if the prescription is for a schedule II opioid drug. Start Date: 12/09/22 Status: Ordered finasteride 5 mg oral tablet 1 tablet = 5 mg, By Mouth, Daily, # 30 tablet, 0 Refills, Maintenance, 12/09/22 9:52:00 EDT, Tablet, Partial fill upon patient request if the prescription is for a schedule II opioid drug. Start Date: 12/09/22 Status: Ordered glipizide-metformin 2.5 mg-250 mg oral tablet 1 tablet, By Mouth, Daily, # 30 tablet, 0 Refills, Maintenance, 12/09/22 9:51:00 EDT, Tablet, Partial fill upon patient request if the prescription is for a schedule II opioid drug. Start Date: 12/09/22 Status: Ordered rosuvastatin 20 mg oral capsule 1 capsule = 20 mg, By Mouth, Daily, # 30 capsule, 0 Refills, Maintenance, 12/09/22 9:52:00 EDT, Capsule, Partial fill upon patient request if the prescription is for a schedule II opioid drug. Start Date: 12/09/22 Status: Ordered Ventolin 0.083% inhalation rehan Refills 0, Maintenance, 12/09/22 9:52:00 EDT Start Date: 12/09/22 Status: Ordered Problem List Condition Confirmation Course Effective Dates Status Health [facility] Informant Obese class II Confirmed Active Patient Care team information Care Team Personnel Name: Not on Staff, PCP Position: S Physician (General Medicine) Member Role: PCP
--- OUTSIDE RECORDS SUMMARY | 2023-09-01 15:39 | XMS_ITS | Continuity of Care Document ---
Author Organization [facility] C ancer Care Address [address] [place] [address]- Care Team Providers Care It Security Project Manager Name Role Phone Not on Staff, PCP Primary Care Physician Unavail able [place] [facility] [place] 03/02/23 - 04/01/23 [facility] [address] [place] [id number] Attending Physician: Gilson Jones Admitting Physician: Gilson Jones Referring Physician: Gilson Jones Medications amLODIPine 10 mg oral tablet 10 [...]
--- OUTSIDE RECORDS SUMMARY | 2023-09-01 15:39 | XMS_ITS | Continuity of Care Document ---
Author Organization [facility] C ancer Care Address [address] [place] [address]- Care Team Providers Care Sales Development Executive Name Role Phone Not on Staff, PCP Primary Care Physician Unavail able Encounter [facility] [place] Date(s): 11/14/22 - 02/08/23 [facility] [address] [place] [address]- Discharge Disposition: A-D/C Home Attending Physician: Hayden Kennedy MD Admitting Physician: Hayden Kennedy MD Referring Physician: Inocencio Lynn MD Medications amLODIPine 10 mg oral tablet 10 [...] atus Informant Obese class II Confirmed Active Vital Signs Most recent to oldest [Reference Range]: 1 Height 178 cm (12/09/22 9:37 AM) Weight 115.4 kg (12/09/22 9:37 AM) Oxygen Saturation [94-100 %] 99 % (12/09/22 9:37 AM) Pulse Rate [55-90 bpm] 63 bpm (12/09/22 9:37 AM) Body Mass Index [18.5-24.99 kg/m2] 36.42 kg/m2 *>HHI* (12/09/22 9:37 AM) Blood Pressure [90-138/55-84 mm Hg] 117/ 67mm Hg (12/09/22 9:37 AM) Temperature [96.8-100.4 DegF] 98.0 DegF (12/09/22 9:37 AM) Blood pressure sites Arm, right (12/09/22 9:37 AM) Temperature Route Oral (12/09/22 9:37 AM) Dry Weight 115.4 kg (12/09/22 9:37 AM) Laboratory * Event Display: Non Lab Results Authored Date: * Event Display: Non Lab Results Authored Date: Radiology * Event Display: Ultrasound Abdomen, Non- Authored Date: * Event Display: NM Nuclear Medicine, Non- Authored Date: Patient Care team information Care Team Personnel Name: Not on Staff, PCP Position: S Physician (General Medicine) Member Role: PCP
--- OUTSIDE RECORDS SUMMARY | 2023-09-01 15:39 | XMS_ITS | Continuity of Care Document ---
Author Organization [facility] C ancer Care Address [address] [place] [address]- Care Team Providers Care Coagulant Dipper Name Role Phone Not on Staff, PCP Primary Care Physician Unavail able Encounter [facility] [place] Date(s): 11/14/22 - 12/14/22 [facility] Care [address] [place] [id number] Attending Physician: Gilson Jones Admitting Physician: Gilson [...]
== END 2023-09-01 16:18 | disposition home or self-care (01) ==
LOC: HO.HUSH 15:38
PROVIDERS: PCP Internal Medicine; Visit Provider Urology
DX: C61 Malignant neoplasm of prostate (principal); R23.2 Flushing; T45.1X5A Adverse effect of antineoplastic and immunosuppressive drugs, initial encounter
CPT/HCPCS: 99213; G2211

== ENCOUNTER → 2023-09-01 15:38 | Outpatient (BNVA) | payer MEDICARE, MEDICAID, SELFPAY | PROVIDERS: PCP Internal Medicine; Visit Provider Urology ==

== ENCOUNTER 2023-10-13 13:41 | Outpatient (AMB) | payer OTHER, SELFPAY ==
--- NOTE | 2023-10-13 13:48 | A.OFFPC_ITS ---
Vital Signs 10/13/23 13:49 Height 5 ft 10 in Weight 264 lb BMI 37.9 BP 114/78 Blood Pressure Location Lt brachial Position Sitting Pulse 73 Pulse Source Pulse Oximeter Pulse Oximetry (%) 97 Oxygen Delivery Method Room Air Intake Visit Reasons: prostate cancer, COPD, hyperlipidemia, HTN, DM Bend Up Required: No Allergies No Known Allergies Allergy (Verified 10/13/23 14:32) Medication List - Last Reconciled 10/13/23 by Clayton Raza MD albuterol sulfate 90 mcg/actuation (Ventolin HFA) 2 puffs inhalation Q6H PRN albuterol sulfate 2.5 mg inhalation QID PRN albuterol sulfate 2.5 mg (3 mL) inhalation BID 30 days amlodipine 10 mg PO DAILY 90 days aspirin 81 mg PO DAILY 90 days blood pressure test kit-large As directed [DISPOSABLE BED PADS As directed] enalapril maleate 20 mg PO DAILY ezetimibe 10 mg PO DAILY finasteride 5 mg PO DAILY 90 days fluticasone propionate 50 mcg/actuation 1 spray intranasal DAILY PRN lobyjqnocmg-zkiszetxi-nsfgyphy 200-62.5-25 mcg (Trelegy Ellipta) 1 inh inhalation DAILY 30 days gabapentin 300 mg PO BEDTIME 30 days metformin 250 mg (1/2 x 500 mg) PO DAILY 30 days nebulizers As directed rosuvastatin 40 mg PO DAILY tamsulosin 0.4 mg PO BEDTIME 90 days [WHEELED WALKER As directed] Tobacco use date assessed: 10/13/23 Dental Screening Dental Screen Date: 06/22/23 Did you have a dental visit in the last 12 months?: Yes Did you have a dental problem in the last 6 months where you did not have access to dental care?: No Was dental information given to patient?: Patient has dentist HPI prostate cancer, COPD, hyperlipidemia, HTN, DM HPI Details Patient comes in today for his follow up visit States that he has noticed some blood in his stool recently and he has a virtual appointment with his oncologist tomorrow (Dr Kennedy at [facility]) to discuss this further and find out what to do He was also reportedly advised to stop taking his Aspirin recently Relates that he had a colonoscopy done in [place] back on 04/23/[address] Alf Jeronimo - had 2 polyps removed (one of which was a tubular adenoma) and he also had some internal hemorrhoids noted States that he feels okay otherwise He denies any headaches or dizziness Denies any chest pains, no SOB No nausea/vomiting, no abdominal pain No change in bowel habits noted PFSH Medical History Asthma-COPD overlap syndrome Personal history of colonic polyps Pre-op chest exam Left knee pain Annual physical exam Obese Pulmonary nodules Hiatal hernia Hiatal hernia Obesity (BMI 30-39.9) Benign essential hypertension Pure hypercholesterolemia Diabetes mellitus Coronary artery disease LUIS (obstructive sleep apnea) Chronic cough Degenerative disc disease Lung fibrosis Bronchial asthma HTN (hypertension) Surgical History Hx of prostate biopsy History of esophagogastroduodenoscopy (EGD) Hx of colonoscopy S/P arterial stent Social History Housing: Apartment Alcohol intake: current Alcohol intake frequency: holidays/special occasions only Patient Tobacco Use Status: Never used Tobacco e-Cigarette/Vaping Use: Never Used Second Hand Smoke Exposure: No Substance Use Type: Marijuana service: No Current occupational status: disabled Cognitive needs: No Hearing needs: No Vision needs: Yes Questionnaire Thrive Questionnaire Date Thrive assessed: 06/22/23 JUAN LUIS-7 AMB Questionnaire JUAN LUIS-7 Date JUAN LUIS - 7 assessed: 06/22/23 Source: Developed by Drs. Aram Christopher, Carrie Dimas, Urban Denney and colleagues, with an educational bud from [employer]. Review of Systems Const Denies chills, Denies fatigue, Denies fever(s) and Denies headache(s) ENT Denies dysphagia, Denies dizziness, Denies otalgia, Denies headache(s), Denies neck pain, Denies odynophagia and Denies sore throat Card Denies chest pain, Denies palpitations and Denies dyspnea Resp Denies cough, Denies dyspnea and Denies wheezing GI Denies abdominal pain, Reports hematochezia (at times lately), Denies constipation, Denies dysphagia, Denies heartburn, Denies diarrhea, Denies nausea, Denies odynophagia and Denies vomiting Denies dysuria, Denies nocturia and Denies urinary frequency Musc Denies neck pain Skin/Breast Denies rash Neuro Denies dizziness and Denies headache(s) Endo Denies fatigue and Denies palpitations Aller/Immun Denies wheezing Physical exam (Primary Care) Vital Signs: Last Vital Signs Pulse 73 10/13/23 13:49 BP 114/78 10/13/23 13:49 Pulse Ox 97 10/13/23 13:49 Oxygen Delivery Method Room Air 10/13/23 13:49 BMI result Body Mass Index 37.9 Tobacco/Smoking Status: Tobacco use Status Tobacco use date assessed 10/13/23 10/13/23 13:55 Patient Tobacco Use Status Never used Tobacco 10/13/23 13:49 e-Cigarette/Vaping Use Never Used 10/13/23 13:49 Thrive Assessment: Date of Thrive Assessment Date Thrive assessed 06/22/23 10/13/23 13:49 Const General: no acute distress and alert HENMT Ears: TM's normal bilaterally and EAC's normal Throat: Yes posterior oropharynx normal and Yes tonsils normal (no TP congestion) Neck Neck: Yes no lymphadenopathy and Yes supple Thyroid: Thyroid normal Resp Auscultation: no rales, no wheezes and diminished lung sounds (slightly) bilateral Cardio Rate: regular rate Rhythm: regular rhythm Heart sounds: no murmurs GI Palpation (GI): Soft to palpation and nontender Auscultation: normal bowel sounds General: Yes no CVA tenderness Back/Spine/Pelvis Back: no CVA tenderness Skin Rashes: no rashes Extrem General: Yes no clubbing, cyanosis or edema Results AMB Hemoglobin A1c AMB Hemoglobin A1c 5.9 % Last Edit by GEOVANI Stafford on 10/13/23 14:12 Results Reviewed Results Reviewed: Laboratory Last Values Hgb A1c (Clinic) 5.9 % (4.0-6.0) 10/13/23 10:26 Assessment and Plan Assessment & Plan (1) Blood in stool: Code(s): K92.1 - Melena Plan: Noted at times recently Patient denies any recent constipation or change in bowel habits and denies any rectal or perianal pain He had his colonoscopy last done in [facility] on 04/23/[address] Alf Jeronimo - reportedly had 2 polyps removed (one of which was a tubular adenoma) and he also had some internal hemorrhoids noted at the time States that he has a virtual appointment with his radiation oncologist (Dr. Kennedy) tomorrow to discuss this further Have advised that if Dr. Kennedy concurs, he will likely need a follow up colonoscopy done soon since he is almost 3 years out from his last colonoscopy and with his (+) tubular adenoma, the recommendation would be to have a repeat colonoscopy done in 3 to 5 years (2) Pulmonary fibrosis: Code(s): J84.10 - Pulmonary fibrosis, unspecified Plan: Chest CT done a couple of years ago on 12/02/2021 revealed (+) chronic pulmonary parenchymal changes with nodules measuring up to 0.9 cm, with (+) coarsely calcified mediastinal/hilar lymph nodes suggesting old granulomatous disease Follow up CT done last month on 01/06/2023 revealed no interval change in bilateral pulmonary nodules and recommend follow up chest CT in 18 to 24 months Continue Trelegy Ellipta 200-62.5-25 mcg 1 inhalation QD Follow up with pulmonary as scheduled (3) Asthma: Code(s): J45.909 - Unspecified asthma, uncomplicated Qualifiers: Asthma severity: moderate Asthma persistence: persistent Asthma complication type: uncomplicated Qualified Code(s): J45.40 - Moderate persistent asthma, uncomplicated Plan: Currently stable Continue Trelegy Ellipta 200-62.5-25 mcg 1 inhalation QD and Albuterol HFA 2 inhalations Q 6 hours PRN He also has Albuterol nebulizer solution to use with his updraft machine Q 6 hours when needed Follow up with pulmonary as scheduled (4) Coronary artery disease: Comment: S/P coronary stent following cardiac cath.-2019-[facility] / [facility] hospital w[facility] Code(s): I25.10 - Atherosclerotic heart disease of chickahom[place] indian tribe coronary artery without angina pectoris Qualifiers: Associated angina: without angina Coronary Disease-Associated Artery/Lesion type: chick[place]om[place] artery Nikolai vs. transplanted heart: chickahominy indian tribe heart Qualified Code(s): I25.10 - Atherosclerotic heart disease of chickahom[place] indian tribe coronary artery without angina pectoris Plan: Patient is currently asymptomatic from cardiac standpoint Continue Aspirin 81 mg QD and aggressive risk factor reduction Follow up with [facility] Cardiology as scheduled (5) Diabetes mellitus: Code(s): E11.9 - Type 2 diabetes mellitus without complications Qualifiers: Diabetes mellitus complication status: without complication Diabetes mellitus shelter insulin use: without petroleum terminal plant operator use Diabetes mellitus type: type 2 Qualified Code(s): E11.9 - Type 2 diabetes mellitus without complications Plan: His in-office HgbA1c today remains unchanged at 5.9% - goal is <7.0% Reinforced diabetic diet Continue Metformin 500 mg 1/2 tablet QD (6) Pure hypercholesterolemia: Code(s): E78.00 - Pure hypercholesterolemia, unspecified Plan: Reinforced low cholesterol diet Continue Rosuvastatin 40 mg QD Will recheck his labs and fasting lipids in 4 months for follow up (7) Benign essential hypertension: Code(s): I10 - Essential (primary) hypertension Plan: Reinforced low sodium diet - goal is systolic BP of at least 120 mm or less Continue Amlodipine 10 mg QD and Enalapril 20 mg QD (8) Prostate cancer: Comment: 08/24 high volume grade group 3 Code(s): C61 - Malignant neoplasm of prostate Plan: Patient was initially diagnosed with prostate cancer (adenocarcinoma) last year (2022) and underwent external beam radiation Tx at [facility] from 03/18/2023 to 04/30/2023 (total of 43 days) He also received hormonal injection in November 2022 Follow up with urology and radiation oncology (Dr. Kennedy) as scheduled (9) Arthralgia of both hands: Code(s): M25.541 - Pain in joints of right hand; M25.542 - Pain in joints of left hand Plan: X-rays of both hands done back in June 2022 revealed (+) mild osteoarthritis changes in both hands Labs done also came back (+) for ZAHIDA; RA was negative As he was just diagnosed with prostate cancer then, all further work ups and referrals at the time were held up as patient wanted to get his prostate cancer work ups and treatment addressed first We started him back then on Tramadol 50 mg BID PRN but have advised him to take this only when needed for severe pain - he was also advised that he can continue taking Tylenol PRN as well but to avoid any NSAIDs (10) Left knee pain: Code(s): M25.562 - Pain in left knee Qualifiers: Chronicity: unspecified Qualified Code(s): M25.562 - Pain in left knee Plan: Left knee x-rays done in June 2022 revealed (+) mild OA changes Can consider referring him to orthopedics for further management if his knee pain persists or gets worse (11) GERD (gastroesophageal reflux disease): Code(s): K21.9 - Gastro-esophageal reflux disease without esophagitis Qualifiers: Esophagitis presence: without esophagitis Qualified Code(s): K21.9 - Gastro-esophageal reflux disease without esophagitis Plan: Dietary restrictions reinforced Continue Omeprazole 20 mg QD Follow up with GI as scheduled (12) Obesity (BMI 30-39.9): Code(s): E66.9 - Obesity, unspecified Plan: Reinforced diet/exercise as tolerated/lose weight Plan Follow up in 4 months Orders: Orders AMB Hemoglobin A1c 10/12/24 E11.9 - Type 2 diabetes mellitus without complications Lipid Panel 4 Months E78.00 - Pure hypercholesterolemia, unspecified Microalbumin, Random (w Creat) 4 Months E11.9 - Type 2 diabetes mellitus without complications Complete Blood Count Auto Diff 4 Months D64.9 - Anemia, unspecified Comprehensive Secor. Panel Fast 4 Months E78.00 - Pure hypercholesterolemia, unspecified TSH reflex Free T4 4 Months E78.00 - Pure hypercholesterolemia, unspecified UA CC w/rflx Micro + Cult 4 Months R30.0 - Dysuria Vitamin D 25-OH Total 4 Months E55.9 - Vitamin D deficiency, unspecified Hemoglobin A1c 4 Months E11.9 - Type 2 diabetes mellitus without complications Coding Level of Care Code Est Pt Level 4 (77813) Complex EM visit Add On G2211 Diagnoses Blood in stool K92.1 Pulmonary fibrosis J84.10 Moderate persistent asthma without complication J45.40 Asthma severity: moderate Asthma persistence: persistent Asthma complication type: uncomplicated Coronary artery disease involving chick[place]om[place] coronary artery of chick[place]om[place] heart without angina pectoris I25.10 Associated angina: without angina Coronary Disease-Associated Artery/Lesion type: chick[place]om[place] artery Nikolai vs. transplanted heart: chick[place]om[place] indian tribe heart Type 2 diabetes mellitus without complication, without long-term current use of insulin E11.9 Diabetes mellitus complication status: without complication Diabetes mellitus shelter insulin use: without shelter use Diabetes mellitus type: type 2 Pure hypercholesterolemia E78.00 Benign essential hypertension I10 Prostate cancer C61 Arthralgia of both hands M25.541; M25.542 Left knee pain, unspecified chronicity M25.562 Chronicity: unspecified Gastroesophageal reflux disease without esophagitis K21.9 Esophagitis presence: without esophagitis Obesity (BMI 30-39.9) E66.9
[2023-10-13 13:49] VITALS: BP 114/78; PULSE 73; O2SAT 97; BMI 37.9
== END 2023-10-13 14:45 | disposition home or self-care (01) ==
PROVIDERS: PCP Internal Medicine; Visit Provider Internal Medicine
DX: K92.1 Melena (principal); J84.10 Pulmonary fibrosis, unspecified; J45.40 Moderate persistent asthma, uncomplicated; I25.10 Atherosclerotic heart disease of native coronary artery without angina pectoris; E11.9 Type 2 diabetes mellitus without complications; E78.00 Pure hypercholesterolemia, unspecified; I10 Essential (primary) hypertension; C61 Malignant neoplasm of prostate; M25.541 Pain in joints of right hand; M25.542 Pain in joints of left hand; M25.562 Pain in left knee; K21.9 Gastro-esophageal reflux disease without esophagitis
CPT/HCPCS: 83036; 99214; G2211

== ENCOUNTER 2023-10-26 07:33 | Outpatient (REF) | payer OTHER, SELFPAY ==
[2023-10-26 08:35] LABS: MANUAL DIFF FLAG NO
[2023-10-26 09:17] LABS: Basophils Percent Auto 0.2 % (0-2); Eosinophils Absolute Auto 0.1 X10*3/uL (0.0-0.4); Hematocrit 40.9 % (42.0-52.0); Imm Gran Abs Auto 0.01 X10*3/uL (0.00-0.03); Imm Gran Pct Auto 0.2 % (0.0-0.4); Lymphocytes Absolute Auto 0.8 X10*3/uL (1.2-4.9); Lymphocytes Percent Auto 16.9 % (20-40); Mean Corpuscular HGB Conc 34.2 g/dl (31.0-36.0); Mean Corpuscular Hemoglobin 31.3 pg (27.0-33.0); Mean Corpuscular Volume 91.5 fL (80.0-98.0); Mean Platelet Volume 9.6 fL (9.4-12.4); Monocytes Absolute Auto 0.8 X10*3/uL (0.1-1.2); Monocytes Percent Auto 17.4 % (2-11); Neutrophils Absolute Auto 2.8 x10*3/uL (2.0-8.3); Neutrophils Percent Auto 63.3 % (45-73); Platelet Count 247 X10*3/uL (160-400); Red Blood Count 4.47 X10*6/uL (4.60-5.80); Red Cell Distribution Width 15.2 % (11.0-16.0); White Blood Count 4.5 X10*3/uL (4.8-10.8)
[2023-10-26 09:23] LABS: Prothrombin Time 11.9 SEC (11.1-13.3)
== END 2023-10-26 07:34 | disposition home or self-care (01) ==
LOC: HO.LAB 07:33
PROVIDERS: Absent Provider Urology; PCP Internal Medicine; Visit Provider Internal Medicine Gastroenterology
DX: K62.5 Hemorrhage of anus and rectum (principal)
CPT/HCPCS: 36415; 85025; 85610

== ENCOUNTER 2023-11-25 10:32 | Outpatient (AMB) | payer MEDICARE, MEDICAID, SELFPAY ==
--- NOTE | 2023-11-25 10:41 | A.OFFVIS_ITS ---
Vital Signs 11/25/23 10:42 Height 5 ft 10 in Weight 262 lb BMI 37.6 BP 130/70 Blood Pressure Location Lt brachial Position Sitting Pulse 76 Pulse Source Pulse Oximeter Intake Visit Reasons: 3 m follow up Water Chemist Required: Yes Water Chemist Name: [id number] Allergies No Known Allergies Allergy (Verified 10/26/23 07:36) Medication List - Last Reconciled 11/25/23 by Akbar Banuelos MD albuterol sulfate 90 mcg/actuation (Ventolin HFA) 2 puffs inhalation Q6H PRN albuterol sulfate 2.5 mg inhalation QID PRN albuterol sulfate 2.5 mg (3 mL) inhalation BID 30 days amlodipine 10 mg PO DAILY 90 days aspirin 81 mg PO DAILY 90 days blood pressure test kit-large As directed [DISPOSABLE BED PADS As directed] enalapril maleate 20 mg PO DAILY ezetimibe 10 mg PO DAILY finasteride 5 mg PO DAILY mfpueqfbzrq-pgaqnbkbe-szbvvqya 200-62.5-25 mcg (Trelegy Ellipta) 1 inh inhalation DAILY 30 days metformin 250 mg (1/2 x 500 mg) PO DAILY 30 days nebulizers As directed polyethylene glycol 3350 (Miralax) 17 grams PO DAILY 1 day rosuvastatin 40 mg PO DAILY [WHEELED WALKER As directed] HPI Comments Details: Kd comes for earlier than stated requested appointment last time. History was obtained with help of medical interpreter. Denies any cardiac symptoms exertional chest pain or shortness of breath. Denies any orthopnea, PND. Notices leg swelling predominantly in the right lower extremity predominantly at the end of the day especially in this heart weather. Taking all his medications. No bleeding issues or neurologic events. No recent lipid panel has been performed. [facility] Medical History Asthma-COPD overlap syndrome Personal history of colonic polyps Pre-op chest exam Left knee pain Annual physical exam Obese Pulmonary nodules Hiatal hernia Hiatal hernia Obesity (BMI 30-39.9) Benign essential hypertension Pure hypercholesterolemia Diabetes mellitus Coronary artery disease LUIS (obstructive sleep apnea) Chronic cough Degenerative disc disease Lung fibrosis Bronchial asthma HTN (hypertension) Surgical History Hx of prostate biopsy History of esophagogastroduodenoscopy (EGD) Hx of colonoscopy S/P arterial stent Social History Housing: Apartment Alcohol intake: current Alcohol intake frequency: holidays/special occasions only Patient Tobacco Use Status: Never used Tobacco e-Cigarette/Vaping Use: Never Used Second Hand Smoke Exposure: No Substance Use Type: Marijuana service: No Current occupational status: disabled Cognitive needs: No Hearing needs: No Vision needs: Yes Review of Systems Const Denies weakness ENT Denies dizziness Card Denies chest pain, Denies chest pain with activity, Denies syncope, Denies rapid heart rate, Denies pedal edema, Denies edema, Denies leg edema, Denies lightheadedness, Denies palpitations, Denies dyspnea, Denies dyspnea on exertion and Denies orthopnea Resp Denies cough, Denies dyspnea and Denies dyspnea on exertion GI Denies hematochezia and Denies change in stool character Musc Denies abnormal gait, Reports joint swelling (ANKLES SWELLING), Denies muscle cramps, Denies muscle weakness, Denies numbness, Denies radiating pain into limb and Denies tingling Neuro Denies abnormal gait, Denies dizziness, Denies syncope, Denies numbness, Denies tingling and Denies weakness Endo Denies palpitations Physical Exam Vital Signs: Last Vital Signs Pulse 76 11/25/23 10:42 BP 130/70 11/25/23 10:42 BMI result Body Mass Index 37.6 Const Other: Obese General: cooperative, healthy appearing, comfortable and no acute distress Orientation/consciousness: patient oriented x3 Neck Neck: Yes normal visual inspection and Yes no JVD Resp Effort & Inspection: normal respiratory effort Auscultation: clear to auscultation bilaterally, no crackles, no rales, no rhonchi and no wheezes Cardio Jugular venous distension: no JVD Rate: regular rate Rhythm: regular rhythm Heart sounds: S1 normal heart sound present, S2 normal heart sound present, no gallops, no murmurs and no rubs GI Inspection: Yes normal to inspection Neuro General: patient oriented x3 Extrem General: Yes normal to inspection and No no pedal edema Psych Appearance: grossly normal Mental Status: mental status grossly normal Speech and movement: Normal speech and movement present Assessment & Plan Assessment & Plan (1) CAD (coronary artery disease): Code(s): I25.10 - Atherosclerotic heart disease of [place] coronary artery without angina pectoris Category: Medical Qualifiers: Coronary Disease-Associated Artery/Lesion type: [place] artery [place] vs. transplanted heart: [place] heart Associated angina: without angina Qualified Code(s): I25.10 - Atherosclerotic heart disease of [place] coronary artery without angina pectoris Plan: CAD with prior LAD stenting for acute coronary syndrome. Currently doing very well from that perspective with no current symptoms. Continue aggressive medical therapy. Continue low-dose aspirin therapy for life. Continue aggressive blood pressure control, see below. Currently on dual therapy with high-intensity statin ezetimibe. Advised lipid panel in near future. Target goal LDL less than 70 mg/dL. Advise aggressive diabetes management. Encouraged to increase activity level and participate in weight loss program. (2) HTN (hypertension): Code(s): I10 - Essential (primary) hypertension Category: Medical Qualifiers: Hypertension type: primary hypertension Qualified Code(s): I10 - Essential (primary) hypertension Plan: Hypertension which is currently well optimized on current medications. Importance of good blood pressure control was discussed continue current therapy. Target goal blood pressure less than 130/84 at all times. Low-salt diet was discussed advised to participate in aggressive weight loss program as well as regular physical activity and treat his sleep apnea. He understands and agrees. (3) Leg edema, right: Code(s): R60.0 - Localized edema Plan: Unilateral edema in the right lower extremity appears to be due to venous insufficiency in combination with amlodipine therapy especially in the warm weather. Discussed with him about pursuing compression venous stocking. No diuretics required. Will follow up in the clinic in 1 year's time, sooner p.r.n.. Thank you for allowing me to partake in his care Orders: Orders Lipid Panel Today I25.10 - Atherosclerotic heart disease of [place] coronary artery without angina pectoris Coding Level of Care Code Est Pt Level 4 (12164) Diagnoses Coronary artery disease involving [place] coronary artery of [place] heart without angina pectoris I25.10 Coronary Disease-Associated Artery/Lesion type: [place] artery [place] vs. transplanted heart: [place] heart Associated angina: without angina Primary hypertension I10 Hypertension type: primary hypertension Leg edema, right R60.0
[2023-11-25 10:42] VITALS: BP 130/70; PULSE 76; BMI 37.6
== END 2023-11-25 11:05 | disposition home or self-care (01) ==
PROVIDERS: PCP Internal Medicine; Visit Provider Internal Medicine Cardiovascular Disease
DX: I25.10 Atherosclerotic heart disease of native coronary artery without angina pectoris (principal); I10 Essential (primary) hypertension; R60.0 Localized edema
CPT/HCPCS: 99214

== ENCOUNTER → 2023-11-25 10:32 | Outpatient (BNVA) | payer OTHER, SELFPAY | PROVIDERS: PCP Internal Medicine; Visit Provider Internal Medicine Cardiovascular Disease | DX: I25.10 Atherosclerotic heart disease of native coronary artery without angina pectoris (principal); I10 Essential (primary) hypertension; R60.0 Localized edema | CPT/HCPCS: 99212 ==

== ENCOUNTER 2023-12-09 06:39 | Day surgery (SDC) | payer OTHER, SELFPAY ==
--- NOTE | 2023-12-08 08:58 | P.CONAN_ITS ---
Documented by User: Liudmila Davey NP 12/08/23 09:01 HPI - Anesthesia Eval Consult details Narrative: 58yo M for Colonoscopy [place] [facility] [place]/p [place] 2018, htn. Stable at 08/2023 office visit for 1 year f/u. Unilateral LE edema r/t and amlodipine PMFSH Active Problems Active Problems: All Active Problems Rectal bleeding (Acute) Blood in stool (Acute) COPD exacerbation (Acute) Prostate cancer (Acute) Urinary incontinence (Acute) Osteoarthritis of knee (Acute) Lumbar degenerative disc disease (Acute) Status post fall (Acute) Left shoulder pain (Acute) Hot flashes related to aromatase inhibitor therapy (Acute) Leukopenia (Acute) Hospital discharge follow-up (Acute) Asthma-COPD overlap syndrome (Acute) Non-caseating granuloma (Acute) Prostate cancer (Acute) Stented coronary artery (Acute) Metabolic syndrome (Acute) Gastric ulcer (Acute) H. pylori infection (Acute) Arthralgia of both hands (Acute) Elevated PSA (Acute) GERD (gastroesophageal reflux disease) (Acute) BPH (benign prostatic hyperplasia) (Acute) Hand arthritis (Acute) CAD (coronary artery disease) (Acute) Enlarged prostate (Acute) DMII (diabetes mellitus, type 2) (Acute) Pulmonary fibrosis (Acute) HLD (hyperlipidemia) (Acute) HTN (hypertension) (Acute) Acute respiratory failure with hypoxia (Acute) Pulmonary nodules (Acute) Hiatal hernia (Acute) Hiatal hernia (Acute) Obesity (BMI 30-39.9) (Acute) Benign essential hypertension (Acute) Pure hypercholesterolemia (Acute) Diabetes mellitus (Acute) Coronary artery disease (Acute) LUIS (obstructive sleep apnea) (Acute) Chronic cough (Acute) Degenerative disc disease (Acute) Past Medical History Medical History (Updated 12/09/23 @ 09:35 by Kristen Lincoln MD) Asthma-COPD overlap syndrome Personal history of colonic polyps Pre-op chest exam Left knee pain Annual physical exam Obese Pulmonary nodules Hiatal hernia Obesity (BMI 30-39.9) Benign essential hypertension Pure hypercholesterolemia Diabetes mellitus Coronary artery disease LUIS (obstructive sleep apnea) Chronic cough Degenerative disc disease Lung fibrosis Bronchial asthma Family History Family history of problems with anesthesia: No Surgical History Surgical History Hx of prostate biopsy History of esophagogastroduodenoscopy (EGD) Hx of colonoscopy S/P arterial stent History of Problems with Anesthesia: No Social History Social History Housing: Apartment Alcohol intake: current Alcohol intake frequency: holidays/special occasions only Patient Tobacco Use Status: Never used Tobacco e-Cigarette/Vaping Use: Never Used Second Hand Smoke Exposure: No Use of substances other than those prescribed or required for medical reasons: Yes Substance Use Type: Marijuana Substance Use Frequency: Weekly Are you DNR?: No Advance Directives: No Advance Directives Information Provided: Yes service: No Current occupational status: disabled Cognitive needs: No Hearing needs: No Vision needs: Yes Meds Allergies Allergy/AdvReac Type Severity Reaction Status Date / Time No Known Allergies Allergy Verified 10/26/23 07:36 Home Medications ?Medication ?Instructions ?Recorded ?Confirmed ?Last Taken ?Type albuterol sulfate 2.5 mg/3 mL 2.5 mg inhalation QID PRN 06/22/23 11/25/23 Unknown History (0.083 %) solution for nebulization shortness of breath or wheezing nebulizers 07/07/23 10/13/23 Unknown History finasteride 5 mg tablet 5 mg PO DAILY 11/25/23 11/25/23 Unknown History Exam Pertinent Lab Results Pertinent Lab Results: Laboratory Tests 06/17/23 07/07/23 10/26/23 07:16 12:06 08:32 WBC 4.5 L Hgb 14.0 Hct 40.9 L Plt Count 247 Sodium 140 Potassium 4.1 Chloride 107 Carbon Dioxide 26 BUN 14 Creatinine 0.79 Narrative Narrative: EKG 08/2023 NSR @ 78 CHAVEZ Assessment and Plan Assessment Anesthesia Assessment: Chart Reviewed Final Anesthetic Review Family History of Problems with Anesthesia: No History of Problems with Anesthesia: No Documented by User: Kristen Lincoln MD 12/09/23 09:57 PMFSH Active Problems Active Problems: All Active Problems Rectal bleeding (Acute) Blood in stool (Acute) Prostate cancer (Acute) Urinary incontinence (Acute) Osteoarthritis of knee (Acute) Lumbar degenerative disc disease (Acute) Status post fall (Acute) Left shoulder pain (Acute) Hot flashes related to aromatase inhibitor therapy (Acute) Leukopenia (Acute) Hospital discharge follow-up (Acute) Asthma-COPD overlap syndrome (Acute) Non-caseating granuloma (Acute) Prostate cancer (Acute) Stented coronary artery (Acute) Metabolic syndrome (Acute) Gastric ulcer (Acute) H. pylori infection (Acute) Arthralgia of both hands (Acute) Elevated PSA (Acute) GERD (gastroesophageal reflux disease) (Acute) BPH (benign prostatic hyperplasia) (Acute) Hand arthritis (Acute) CAD (coronary artery disease) (Acute)- denies recent chest pain Enlarged prostate (Acute) DMII (diabetes mellitus, type 2) (Acute) Pulmonary fibrosis (Acute) HLD (hyperlipidemia) (Acute) HTN (hypertension) (Acute) Acute respiratory failure with hypoxia (Acute) Pulmonary nodules (Acute) Hiatal hernia (Acute) Obesity (BMI 30-39.9) (Acute) Pure hypercholesterolemia (Acute) Diabetes mellitus (Acute) LUIS (obstructive sleep apnea) (Acute). Not using CPAP Chronic cough (Acute) Degenerative disc disease (Acute) Past Medical History Medical History (Updated 12/09/23 @ 09:35 by Kristen Lincoln MD) Asthma-COPD overlap syndrome Personal history of colonic polyps Pre-op chest exam Left knee pain Annual physical exam Obese Pulmonary nodules Hiatal hernia Obesity (BMI 30-39.9) Benign essential hypertension Pure hypercholesterolemia Diabetes mellitus Coronary artery disease LUIS (obstructive sleep apnea) Chronic cough Degenerative disc disease Lung fibrosis Bronchial asthma Family History Family history of problems with anesthesia: No Surgical History Surgical History Hx of prostate biopsy History of esophagogastroduodenoscopy (EGD) Hx of colonoscopy S/P arterial stent History of Problems with Anesthesia: No Social History Social History Housing: Apartment Alcohol intake: current Alcohol intake frequency: holidays/special occasions only Patient Tobacco Use Status: Never used Tobacco e-Cigarette/Vaping Use: Never Used Second Hand Smoke Exposure: No Use of substances other than those prescribed or required for medical reasons: Yes Substance Use Type: Marijuana Substance Use Frequency: Weekly Are you DNR?: No Advance Directives: No Advance Directives Information Provided: Yes service: No Current occupational status: disabled Cognitive needs: No Hearing needs: No Vision needs: Yes Meds Allergies Allergy/AdvReac Type Severity Reaction Status Date / Time No Known Allergies Allergy Verified 10/26/23 07:36 Home Medications ?Medication ?Instructions ?Recorded ?Confirmed ?Last Taken ?Type albuterol sulfate 2.5 mg/3 mL 2.5 mg inhalation QID PRN 06/22/23 11/25/23 Unknown History (0.083 %) solution for nebulization shortness of breath or wheezing nebulizers 07/07/23 10/13/23 Unknown History finasteride 5 mg tablet 5 mg PO DAILY 11/25/23 11/25/23 Unknown History Exam Height,Weight and Vital Signs: Height 5 ft 10 in Weight 118.388 kg Vital Signs Temp Pulse Resp BP Pulse Ox O2 Del Method 12/09/23 08:38 97.3 F 73 18 133/80 95 Room Air Pertinent Lab Results Pertinent Lab Results: Laboratory Tests 06/17/23 07/07/23 10/26/23 07:16 12:06 08:32 WBC 4.5 L Hgb 14.0 Hct 40.9 L Plt Count 247 Sodium 140 Potassium 4.1 Chloride 107 Carbon Dioxide 26 BUN 14 Creatinine 0.79 Lab Results 12/09/23 Range/Units 08:42 POC Glucose 93 (60-115) mg/dL Airway Mallampati Class: II TM Dist: >3cm Neck ROM: Full Partial: Lower Loose/Missing/Broken Teeth: Yes (Missing molars. Partial denture bottom front) Heart: RRR Lungs: CTAB Assessment and Plan Assessment Anesthesia Assessment: Anesthesia Plan Discussed and Chart Reviewed Final Anesthetic Review Family History of Problems with Anesthesia: No History of Problems with Anesthesia: No NPO: Yes ASA Class: III Final Preanesthetic Review: No Changes in Pt Med Stat, Meds/Allgs Chart Reviewed, Consent Obtained/Reviewed and Anes Risks/Benef Reviewed Patient Risk: Intermediate Procedure Risk: Low Assessment/Block/Sedation in SS: Assess/Block/Sedation-SS Anesthetic Plan Anesthetic Plan: TIVA Disposition: Standard PACU
[2023-12-09 08:29] VITALS: BMI 37.4
[2023-12-09] MEDS: Lactated Ringers 1,000 ML 100 ML IVCONT (08:37)
[2023-12-09 08:38] VITALS: BP 133/80; PULSE 73; RESP 18; TEMP 36.3; O2SAT 95
[2023-12-09 08:46] LABS: Glucose, Whole Blood 93 mg/dL (60-115)
--- NOTE | 2023-12-09 08:58 | MHC.SHP ---
Pre-Procedural Eval Section A - 24 Hr Update-Section A only Date of Service: 12/09/23 The patient is an INPATIENT: No The patient has been examined within 24 hours of the surgical procedure. The History & Physical has been completed within 30 days and I have reviewed it.: No Section B - Complete if H&P > 30 days Chief Complaint: Rectal bleeding, surveillance for colon polyps Relevant Family History (Specify if Yes): No Relevant Social History: None Present Medications: see Short Stay Collaborative assessment Medical History: Significant History (Asthma-COPD overlap syndrome Personal history of colonic polyps Pre-op chest exam Left knee pain Annual physical exam Obese Pulmonary nodules Hiatal hernia Hiatal hernia Obesity (BMI 30-39.9) Benign essential hypertension Pure hypercholesterolemia Diabetes mellitus Coronary artery disease LUIS (obstr) History of Previous Operations: Relevant previous surgery/procedure and date(s) (Hx of prostate biopsy History of esophagogastroduodenoscopy (EGD) Hx of colonoscopy S/P arterial stent) Allergies: Allergies Allergy/AdvReac Type Severity Reaction Status Date / Time No Known Allergies Allergy Verified 10/26/23 07:36 Review of Systems Sugical H&P ROS: Negative: Constitution, Cardiovascular and Respiratory and Yes, Specify: Gastrointestinal (Rectal bleeding) Exam Surgical H&P Exam: Normal: Heart, Normal: Lungs, Normal: Extremities and Normal: Abdomen Plan Diagnosis/Plan: Change (Proceed with colonoscopy for evaluation of rectal bleed and surveillance for colon polyps) I have reviewed the history and physical and performed a pertinent physical examination on my patient. No changes have occurred unless specified. Time Spent With Patient Time: Total time managing care of this patient today ____ minutes.
--- NOTE | 2023-12-09 10:52 | P.OPN-COLO_ITS ---
Colonoscopy Operative Note Operative Note Date of Service: 12/09/23 Narrative: COLONOSCOPY TILL CECUM WITH BIOPSIES, SNARE POLYTPECTOMY AND APC OF RADIATION PROCTITIS Pre-op diagnosis: Surveillance for colon polyps, diverticulosis, hemorrhoids radiation proctitis. Post-op diagnosis:? Colon polyp, Diverticulosis, hemorrhoids, radiation proctitis Endoscopist:? Steve Hankins MD Anesthesia:?MAC Consent: Indications for the procedure and potential complications of bleeding, perforation, reaction to medications and missed diagnosis were discussed with the patient and informed consent was obtained. Instrument: Olympus CF H 190 L variable stiffness adult colonoscope Monitoring: Vital signs and clinical assessment, intermittent blood pressure monitoring, continuous EKG monitoring, Pulse oximetry and Carbon Dioxide monitoring were done throughout the procedure. Please see anesthesia flowsheet. Colon withdrawl time was 40 minutes. Procedure: The patient was placed in the left lateral decubitis position and pre-procedure medications were administered. After a digital rectal examination of the ano-rectum, the video colonoscope was inserted into the rectum and advanced through the colon to the cecum. The colonoscope was slowly withdrawn in a retrograde panoramic fashion and the colon mucosa was carefully examined including a retroflexed view of the rectum. Findings and interventions are described below. Procedure Difficulty: LLQ pressure was applied to intubate the cecum/ascending colon Findings: Terminal Ileum: Not evaluated Cecum: A 4-5 mm sessile polyp - remove with a cold biopsy Ascending Colon: A 10-12 mm sessile polyp in the proximal AC - removed with a stiff hot snare. A 2 cms sessile polyp at 100 cms in the distal AC. Polyp was behind a fold and difficult to access. 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 Treated with APC. Ano-rectum: Moderate internal hemorrhoids Colon preparation: Excellent after some irrigation. [place] Bowel Preparation Scale Right colon; 3 Transverse colon: 3 Left colon; 3 (0 = Unprepared colon segment with mucosa not seen due to solid stool that cannot be cleared. 1 = Portion of mucosa of the colon segment seen, but other areas of the colon segment not well seen due to staining, residual stool and/or opaque liquid. 2 = Minor amount of residual staining, small fragments of stool and/or opaque liquid, but mucosa of colon segment seen well. 3 = Entire mucosa of colon segment seen well with no residual staining, small fragments of stool or opaque liquid) Impression and Post Procedure Diagnosis: Colonoscopy Findings: One small and two medium sized polyps were removed Moderate diverticulosis seen in the sigmoid colon Moderate hemorrhoids on retroflexed exam. Plan: Pt has a FU appointment on 12/18/[address] Deng Repeat Colonoscopy in 3 years if polyps are adenomatous and 5 years if polyps are hyperplastic. Above findings were reviewed with the patient and relevant handouts were given and the discharge area.
[2023-12-09 10:55] VITALS: BP 123/78; PULSE 80; RESP 16; TEMP 36.1; O2SAT 97
[2023-12-09 11:10] VITALS: BP 139/95; PULSE 78; RESP 18; TEMP 36.1; O2SAT 94
== END 2023-12-09 11:51 | disposition home or self-care (01) ==
PROVIDERS: PCP Internal Medicine; Visit Provider Internal Medicine Gastroenterology
PROC: 0DJD8ZZ Inspection of Lower Intestinal Tract, Via Natural or Artificial Opening Endoscopic (ICD-10-PCS; CPT 45378; principal; 2023-12-09 09:10)
DX: K62.5 Hemorrhage of anus and rectum (principal); Z86.010 Personal history of colon polyps; D12.2 Benign neoplasm of ascending colon; K63.5 Polyp of colon; K64.8 Other hemorrhoids; K62.7 Radiation proctitis; J84.9 Interstitial pulmonary disease, unspecified; G47.33 Obstructive sleep apnea (adult) (pediatric); E66.9 Obesity, unspecified; Z68.37 Body mass index [BMI] 37.0-37.9, adult; I25.10 Atherosclerotic heart disease of native coronary artery without angina pectoris; Z95.5 Presence of coronary angioplasty implant and graft; I10 Essential (primary) hypertension; E78.00 Pure hypercholesterolemia, unspecified; E11.9 Type 2 diabetes mellitus without complications; Z79.82 Long term (current) use of aspirin; Z79.51 Long term (current) use of inhaled steroids; Z79.84 Long term (current) use of oral hypoglycemic drugs; Z98.890 Other specified postprocedural states
CPT/HCPCS: 45385; 45380; 45382; 82947; 88305; J2704

== ENCOUNTER → 2023-12-09 06:39 | Outpatient (BNV) | payer OTHER, SELFPAY | PROVIDERS: PCP Internal Medicine; Visit Provider Internal Medicine Gastroenterology | DX: Z12.11 Encounter for screening for malignant neoplasm of colon (principal); K63.5 Polyp of colon; K57.30 Diverticulosis of large intestine without perforation or abscess without bleeding; K64.8 Other hemorrhoids; K62.7 Radiation proctitis | CPT/HCPCS: 45380; 45382; 45385 ==

== ENCOUNTER 2024-01-01 07:43 | Outpatient (REF) | payer OTHER, SELFPAY ==
[2024-01-01 09:16] LABS: Prostate Specific Antigen < 0.10 ng/mL (<0.05-4.0)
[2024-01-07 14:14] LABS: Testosterone, Total 190 ng/dL (250-1100)
== END 2024-01-01 07:44 | disposition home or self-care (01) ==
LOC: HO.LAB 07:43
PROVIDERS: PCP Internal Medicine; Visit Provider Urology
DX: Z12.5 Encounter for screening for malignant neoplasm of prostate (principal); C61 Malignant neoplasm of prostate
CPT/HCPCS: 36415; 84153; 84403

== ENCOUNTER 2024-01-05 10:14 | Outpatient (AMB) | payer OTHER, MEDICAID, SELFPAY ==
--- NOTE | 2024-01-05 10:19 | A.OFFVIS_ITS ---
Intake Visit Reasons: 4M Follow Up-Labs/Dr. Dudley (set) Intake Note: Patient is Present for 4M Follow Up/LABS Urology Med: Finasteride Antibiotic Allergy: none Blood Thinner:aspirin Environmental Consultant Required: No Allergies No Known Allergies Allergy (Verified 01/05/24 10:21) HPI Comments Details: Kd is a pleasant male. He is a patient Dr. Raza. He is seen for following urologic conditions - prostate cancer - lower urinary tract symptoms speaks Tajik, he speaks Icelandic Completed external beam radiation April 202312/25 Has had some urgency and frequency with hot flashes Medications include terazosin, finasteride and gabapentin Stop finasteride, improved hot flashes PSA 08/25 <0.1, 12/25 <0.1 Prostate Cancer: 08/24 High volume Grade Group 3 - GnRH 11/23 - [facility] with EXBRT plus GnRH Apr 2023 [facility] Dr. Kennedy - 12 months GnRH Diagnosed by Dr. Lynn, PSA 8.8 free PSA 5% Biopsy pT1c Ramsey score: 4+3=7 (left apex medial, right base medial), 3+4=7 (left mid medial, right base lateral and medial, right mid lateral and medial, right apex medial), 3+3= 6 (left base lateral, left mid lateral, left apex lateral, right apex lateral) Number cores positive: 12 Total number of cores: 12 % of tissue involved: 30% of all tissue examined Periprostatic fat inv.: Not identified Seminal vesicle inv.: Not identified Perineural inv.: Present, multifocal LVI: Not identified Staging - 10/24 PET-CT no giovanny disease - 12/24 prostate MRI anterior 1.2 cm lesion, 30 g prostate, no evidence of extracapsular extension Lower urinary tract symptoms with elevated PSA Prior evaluation in [place] Did not continue evaluation secondary to COVID Referred for elevated PSA 02/22 15 Nocturia x3 No prior prostate medications DANA 2+ firm Suggest bladder ultrasound, finasteride, terazosin 5 mg and follow-up cystoscopy [facility] Medical History (Updated 12/09/23 @ 09:35 by Kristen Lincoln MD) Asthma-COPD overlap syndrome Personal history of colonic polyps Pre-op chest exam Left knee pain Annual physical exam Obese Pulmonary nodules Hiatal hernia Obesity (BMI 30-39.9) Benign essential hypertension Pure hypercholesterolemia Diabetes mellitus Coronary artery disease LUIS (obstructive sleep apnea) Chronic cough Degenerative disc disease Lung fibrosis Bronchial asthma Surgical History Hx of prostate biopsy History of esophagogastroduodenoscopy (EGD) Hx of colonoscopy S/P arterial stent Social History Housing: Apartment Alcohol intake: current Alcohol intake frequency: holidays/special occasions only Patient Tobacco Use Status: Never used Tobacco e-Cigarette/Vaping Use: Never Used Second Hand Smoke Exposure: No Substance Use Type: Marijuana service: No Current occupational status: disabled Cognitive needs: No Hearing needs: No Vision needs: Yes Review of Systems Const Denies chills and Denies fever(s) Card Reports no additional complaints and Denies syncope Resp Denies cough GI Denies abdominal pain and Denies heartburn Reports as per HPI and Denies change in libido Neuro Denies syncope Psych Denies change in libido Endo Denies change in libido Physical Exam Const General: cooperative, healthy appearing, comfortable and no acute distress Orientation/consciousness: patient oriented x3 HEENT Face and sinus: Yes normal facial exam Mouth: moist mucous membranes Neck Neck: Yes normal visual inspection, Yes full ROM and Yes trachea midline Chest Chest palpation & inspection: normal inspection of the chest Resp Effort & Inspection: normal respiratory effort, able to speak in complete sentences and no respiratory distress GI Inspection: Yes normal to inspection Back/Spine/Pelvis Cervical Spine: normal cervical lordosis Thoracic/Lumbar Spine: thoracic and lumbar spine normal to inspection Skin General skin exam: no rashes or lesions noted Neuro General: patient oriented x3, gait normal, tone normal and moves all extremities Extrem General: Yes normal to inspection and Yes capillary refill normal Results AMB Urinalysis, Automated UA Leukoctes 0 Romana/uL Last Edit by ELENI Crawford on 01/05/24 10:38 UA Nitrite Negative Last Edit by ELENI Crawford on 01/05/24 10:38 UA Urobilinogen 0.2 mg/dL Last Edit by ELENI Crawford on 01/05/24 10:3 8 UA Protein 0 mg/dL Last Edit by ELENI Crawford on 01/05/24 10:38 UA pH 6.0 Last Edit by ELENI Crawford on 01/05/24 10:38 UA Blood 0 Jonatan/uL Last Edit by ELENI Crawford on 01/05/24 10:38 UA Specific [place] 1.025 Last Edit by ELENI Crawford on 01/05/24 10: 38 UA Ketone Negative Last Edit by ELENI Crawford on 01/05/24 10:38 UA Bilirubin 0 mg/dL Last Edit by ELENI Crawford on 01/05/24 10:38 UA Glucose 0 mg/dL Last Edit by ELENI Crawford on 01/05/24 10:38 Assessment & Plan Assessment & Plan (1) Prostate cancer: Comment: 08/24 high volume grade group 3 Code(s): C61 - Malignant neoplasm of prostate Category: Medical Plan Four month follow-up labs Orders: Orders AMB Urinalysis Automated Today Z13.9 - Encounter for screening, unspecified Prostate Specific Antigen 4 Months C61 - Malignant neoplasm of prostate Testosterone, Total 4 Months C61 - Malignant neoplasm of prostate Medications: New terazosin 5 mg PO BEDTIME 90 days 90 caps 1RF C61 - Malignant neoplasm of prostate, N40.1 - Benign prostatic hyperplasia with lower urinary tract symptoms, R35.0 - Frequency of micturition Patient Instructions: Imaging studies, laboratory and physical exam results were discussed and reviewed in detail. No major barriers to patient understanding were identified. An opportunity to ask questions regarding the treatment plan was provided. All questions were answered. The patient expressed understanding and agreement with the above treatment plan. The patient is aware they should contact our office by phone for worsening of their current condition or the appearance of new urologic symptoms. Compliance is encouraged with any medications and followup testing that is ordered. It is a privilege to participate in the urologic care of your patient. If you have any questions or concerns regarding treatment for the above conditions, or other urologic issues, please do not hesitate to contact me. The office telephone contact is [phone]. This note is constructed using voice recognition software. While every effort has been made to ensure accuracy fire alarm inspector errors may have been included. Yours sincerely, Dr Inocencio Lynn MD, [facility] - Urology Providers of Expert, Compassionate Care for the Genitourinary System Coding Level of Care Code Est Pt Level 3 (46240) Diagnoses Prostate cancer C61
== END 2024-01-05 10:44 | disposition home or self-care (01) ==
PROVIDERS: PCP Internal Medicine; Visit Provider Urology
DX: Z13.9 Encounter for screening, unspecified (principal); C61 Malignant neoplasm of prostate
CPT/HCPCS: 99213

== ENCOUNTER → 2024-01-05 10:14 | Outpatient (BNVA) | payer OTHER, SELFPAY | PROVIDERS: PCP Internal Medicine; Visit Provider Urology | DX: C61 Malignant neoplasm of prostate (principal) | CPT/HCPCS: 81003; 99212 ==

== ENCOUNTER 2024-01-08 11:16 | Outpatient (AMB) | payer MEDICARE, SELFPAY ==
--- NOTE | 2024-01-08 11:18 | MHC.OFFVIS ---
Vital Signs 01/08/24 11:19 Height 5 ft 10 in Weight 265 lb 10.512 oz BMI 38.1 BP 128/70 Blood Pressure Location Lt brachial Position Sitting Pulse 79 Pulse Source Pulse Oximeter Pulse Oximetry (%) 96 Oxygen Delivery Method Room Air Intake Visit Reasons: Dyspnea Director Of Home Economics Required: No Allergies No Known Allergies Allergy (Verified 01/08/24 11:22) HPI Comments Details: The patient is a 58-year-old gentleman who recently moved to the area from [place]. 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 His condition was advanced and required oxygen supplementation in even considered to be a candidate for lung transplantation. His condition improved significantly. He had a cardiac evaluation did require a percutaneous intervention with 1 stent. The patient also was evaluated by Pulmonary and placed on respiratory therapy with significant improvement of his overall status. The patient did have significant weight loss with exercise and also improved her respiratory status. Slowly was able to get off the oxygen. While he was in the ER she was evaluated for sleep apnea. The patient does have significant snoring and significant cardiovascular risk factors. He was diagnosed with sleep apnea and he was prescribed the CPAP. However he was not given instructions on how to use it and at that time he was moving out of the state therefore he returned the machine. Currently he is still having daytime drowsiness. His Tchula score is elevated 11 of 24. His was present in the room also documented snoring and also apneic episodes. The patient does benefit from having a repeat sleep study to further address his sleep apnea condition. During the visit we did go for walking oximetry. The patient was able to maintain a pulse ox of 94% with activity which is reassuring that he does not qualify for oxygen. He was indeed dyspneic with dyspnea score of 7/10 on the completion of the 6 minute walk test. The patient was per the sedating and pulmonary rehabilitation in [place]. The patient will benefit from pulmonary rehabilitation also here at [place]. Will discuss that further after undergoing pulmonary function studies and further imaging studies. I did review his chest x-ray that he had back in 2020 with no evidence of any acute disease. I do not appreciate any evidence of any reticular nodular opacities to suggest interstitial lung disease. as far as exposures he did work in [employer] for about 6-7 years in [place]. 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 He would end up with significant amount of dust in his body. 01/10/2022 the patient is here for a pulmonary follow-up visit. Overall he is doing better. Patient is responding well to the respiratory inhalers. Does have some dyspnea on exertion [id number] severity. Does get better with rest. We did review his recent CT scan of the chest personally by me. I did share the images with both the patient and his significant other. Appears to have some areas of scarring and some calcifications likely related to underlying pneumoconiosis or sarcoidosis. Seems to be stable without any evidence of any ground-glass opacities. Does have pulmonary nodules and to be followed. The CT scan also demonstrates and small hiatal hernia. On further questioning he does state having significant reflux issues. Patient is aware that reflux disease and worsen his interstitial lung process. Therefore needs to follow closely reflux diet. he will also start PPI times a month. In addition to that he continues to have daytime drowsiness. His Tchula score still elevated 11/24. He also has a history of pulmonary hypertension and therefore the patient does need to undergo his sleep study. He needs to call and schedule it at this time. As far as his pulmonary function studies will plan to do those with his next visit in 6 months. 10/14/2022 the patient is here for pulmonary follow-up visit. The patient has had multiple issues. He is being closely monitored by Urology. He had a biopsy demonstrating adenocarcinoma. He also underwent a PET scan confirming the findings. I did personally review the PET scan along with the CT scan images demonstrating pulmonary nodules largest 1 measuring 8 mm. None of the nodules demonstrated any FDG activity which is reassuring. Some of the nodules were below the after CF PET scan however. She will need to have those nodules monitor closely. The patient does have a history pulmonary fibrosis but I do not appreciate significant interstitial lung disease at this time. He is using his respiratory medicines with good effect. Denies any significant daytime drowsiness. He opted and not having the sleep study. He did follow-up with GI regarding his GI symptoms. Currently feeling better although still having some issues with reflux. From a pulmonary standpoint the patient will undergo spirometry today. If the patient does need to undergo surgery at this point the patient is medically optimized from a respiratory status. He does have mild risk for perioperative pulmonary complications which includes atelectasis, hypoxia, pneumonia and prolonged mechanical ventilation. The patient is able to receive with consent for both anesthesia and surgery if required. Spirometry from today demonstrating a moderate restrictive ventilatory defect consistent moderate COPD. 07/07/2023 the patient is here for a pulmonary follow-up visit. The patient has been having hard time for the last few weeks. He complaining of increasing chest tightness and wheezing. Moderate severity. He has been trying to get albuterol for his nebulizer and has not been able to do so. Denies any sick contacts denies any fevers or chills. He does have a cough congested in nature with white to yellowish phlegm. [id number]-be-aulcbidh severity. He has been using the Breo inhaler. Still having ongoing symptoms requiring his rescue inhaler multiple times a day. Will switch him over to Trelegy for better coverage. In the meantime will send him albuterol to treat his COPD. The patient should use it twice a day. In the meantime gotten treat him for lower respiratory infection and COPD exacerbation. Patient did complete his treatment for his prostate cancer which is reassuring. We did look at his last CT scan of the chest which was back in January 2023 demonstrating stable pulmonary nodules. Will discuss further additional testing during his next visit in 4-6 months. 01/08/2024 the patient is here for pulmonary follow-up visit. The patient overall has been doing well. He still having chest congestion but overall better. Still having chest tightness and shortness of breath. Specially when going up a flight of stairs. He has not been able to get his nebulizer medication. I will make sure to send to the pharmacy. The patient does have underlying asthma COPD overlap syndrome. He does have increased symptoms right now also going to the fall. He may have an allergic component. Will add Singulair to his regimen. From a prostate standpoint the patient seems to be doing well. Will plan to request pulmonary function studies and also set him up pulmonary rehabilitation at this time. We did review his CT scan of the chest. Personally by me from 01/21/2023 demonstrating pulmonary nodules. The patient also has underlying prostate cancer. Therefore plan to repeat the CT scan the fall 2023 to make sure that the nodules have not progressed specially with assist her cancer. [facility] Medical History (Updated 12/09/23 @ 09:35 by Kristen Lincoln MD) Asthma-COPD overlap syndrome Personal history of colonic polyps Pre-op chest exam Left knee pain Annual physical exam Obese Pulmonary nodules Hiatal hernia Obesity (BMI 30-39.9) Benign essential hypertension Pure hypercholesterolemia Diabetes mellitus Coronary artery disease LUIS (obstructive sleep apnea) Chronic cough Degenerative disc disease Lung fibrosis Bronchial asthma Surgical History Hx of prostate biopsy History of esophagogastroduodenoscopy (EGD) Hx of colonoscopy S/P arterial stent Social History Housing: Apartment Alcohol intake: current Alcohol intake frequency: holidays/special occasions only Patient Tobacco Use Status: Never used Tobacco e-Cigarette/Vaping Use: Never Used Second Hand Smoke Exposure: No Substance Use Type: Marijuana service: No Current occupational status: disabled Cognitive needs: No Hearing needs: No Vision needs: Yes Review of Systems Const Denies headache(s) Eyes Denies loss of vision ENT Denies vertigo, Denies dizziness, Denies headache(s) and Denies sore throat Card Denies chest pain, Denies leg edema, Denies lightheadedness and Reports dyspnea on exertion Resp Reports cough, Denies hemoptysis, Reports dyspnea on exertion and Reports wheezing GI Denies abdominal pain, Denies melena, Denies constipation, Denies diarrhea and Denies vomiting Denies dysuria, Denies urinary frequency and Denies urinary urgency Musc Denies arthralgias, Denies joint swelling, Denies numbness and Denies tingling Neuro Denies Abnormal speech present, Denies behavioral changes, Denies vertigo, Denies dizziness, Denies headache(s), Denies loss of vision, Denies memory loss, Denies numbness and Denies tingling Psych Denies anxiety, Denies behavioral changes, Denies depression, Denies memory loss and Denies panic attacks Dale/Lymph Denies easy bleeding and Denies easy bruising Aller/Immun Reports wheezing Physical Exam Vital Signs: Last Vital Signs Pulse 79 01/08/24 11:19 BP 128/70 01/08/24 11:19 Pulse Ox 96 01/08/24 11:19 Oxygen Delivery Method Room Air 01/08/24 11:19 BMI result Body Mass Index 38.1 Const General: alert Neck Neck: Yes normal visual inspection, Yes full ROM and Yes no lymphadenopathy Chest Chest palpation & inspection: normal inspection of the chest Resp Effort & Inspection: normal respiratory effort and prolonged expiratory phase Auscultation: no rhonchi, no wheezes and diminished lung sounds Cardio Rate: regular rate Rhythm: regular rhythm Heart sounds: S1 normal heart sound present and S2 normal heart sound present GI Palpation (GI): Soft to palpation and nontender Auscultation: normal bowel sounds Skin General skin exam: rashes and/or lesions noted Neuro Speech: No Abnormal speech present Assessment & Plan Assessment & Plan (1) Asthma-COPD overlap syndrome: Code(s): J44.9 - Chronic obstructive pulmonary disease, unspecified Category: Medical (2) Pulmonary fibrosis: Code(s): J84.10 - Pulmonary fibrosis, unspecified Category: Medical (3) Chronic cough: Code(s): R05.3 - Chronic cough Category: Medical (4) LUIS (obstructive sleep apnea): Code(s): G47.33 - Obstructive sleep apnea (adult) (pediatric) Category: Medical (5) Hiatal hernia: Code(s): K44.9 - Diaphragmatic hernia without obstruction or gangrene Category: Medical (6) Pulmonary nodules: Comment: 8[place] [facility] Code(s): R91.8 - Other nonspecific abnormal finding of lung field Category: Medical (7) Asthma-COPD overlap syndrome: Code(s): J44.9 - Chronic obstructive pulmonary disease, unspecified Category: Medical (8) Prostate cancer: Code(s): C61 - Malignant neoplasm of prostate Category: Medical Plan continue Trelegy 200 short-acting beta agonist as needed fluticasone nasal spray start singulair sleep elevated Repeat CT chest Fall 2023 Continue with tobacco cessation. Needs to quit PFTs Pulmonary rehab F/U 3-4 months Orders: Orders CT chest wo IV con 2 Months C61 - Malignant neoplasm of prostate, R91.8 - Other nonspecific abnormal finding of lung field Pulmonary Rehab 01/08/24 J44.9 - Chronic obstructive pulmonary disease, unspecified PFT pulmonary function test 01/08/24 J44.9 - Chronic obstructive pulmonary disease, unspecified Medications: New montelukast (Singulair) 10 mg PO BEDTIME 30 days 30 tabs 11RF J45.909 - Unspecified asthma, uncomplicated montelukast (Singulair) 10 mg PO BEDTIME 30 tabs 11RF 30 days J45.909 - Unspecified asthma, uncomplicated Changed From albuterol sulfate 2.5 mg inhalation QID PRN shortness of breath or wheezing J44.9 - Chronic obstructive pulmonary disease, unspecified To albuterol sulfate 2.5 mg (3 mL) inhalation BID 180 mL 11RF 30 days J44.9 - Chronic obstructive pulmonary disease, unspecified Refilled albuterol sulfate 90 mcg/actuation (Ventolin HFA) 2 puffs inhalation Q6H PRN 18 ea 11RF for wheezing J45.40 - Moderate persistent asthma, uncomplicated, J84.10 - Pulmonary fibrosis, unspecified epfolqpjahw-[id number]-nybgzbne 200-62.5-25 mcg (Trelegy Ellipta) 1 inh inhalation DAILY 60 ea 12RF 30 days Coding Level of Care Code Est Pt Level 4 (80185) Diagnoses Asthma-COPD overlap syndrome J44.9 Pulmonary fibrosis J84.10 Chronic cough R05.3 LUIS (obstructive sleep apnea) G47.33 Hiatal hernia K44.9 Pulmonary nodules R91.8 Prostate cancer C61 Time Spent (min) 17
[2024-01-08 11:19] VITALS: BP 128/70; PULSE 79; O2SAT 96; BMI 38.1
== END 2024-01-08 11:40 | disposition home or self-care (01) ==
PROVIDERS: PCP Internal Medicine; Visit Provider Hospitalist
DX: J44.9 Chronic obstructive pulmonary disease, unspecified (principal); J84.10 Pulmonary fibrosis, unspecified; R05.3 Chronic cough; G47.33 Obstructive sleep apnea (adult) (pediatric); K44.9 Diaphragmatic hernia without obstruction or gangrene; R91.8 Other nonspecific abnormal finding of lung field; C61 Malignant neoplasm of prostate
CPT/HCPCS: 99214

== ENCOUNTER → 2024-01-08 11:16 | Outpatient (BNVA) | payer MEDICARE, SELFPAY | PROVIDERS: PCP Internal Medicine; Visit Provider Hospitalist | DX: C61 Malignant neoplasm of prostate (principal); J84.10 Pulmonary fibrosis, unspecified; J44.9 Chronic obstructive pulmonary disease, unspecified; R91.8 Other nonspecific abnormal finding of lung field; R05.3 Chronic cough; K44.9 Diaphragmatic hernia without obstruction or gangrene; G47.33 Obstructive sleep apnea (adult) (pediatric) | CPT/HCPCS: 99212 ==

== ENCOUNTER 2024-02-08 15:20 | Outpatient (AMB) | payer OTHER, SELFPAY ==
[2024-02-08 15:39] VITALS: BP 132/82; PULSE 84; O2SAT 96; BMI 38.9
--- NOTE | 2024-02-08 15:39 | A.OFFVIS_ITS ---
Vital Signs 02/08/24 15:39 Height 5 ft 10 in Weight 271 lb 2.697 oz BMI 38.9 BP 132/82 Blood Pressure Location Lt brachial Position Sitting Pulse 84 Pulse Source Pulse Oximeter Pulse Oximetry (%) 96 Oxygen Delivery Method Room Air Intake Visit Reasons: GI Bleed Intake Note: Kd presents in office today for a scheduled FUV. CC; Pt was last seen for colo w/ Dr. Hankins 12/09/2023. This is his first FUV since the procedure. Pt reports that they have been OK since the procedure, no new concerns or sx at this time. Director Of Campus Recreation Required: Yes Director Of Campus Recreation Services: Director Of Campus Recreation Present Director Of Campus Recreation Name: Enrique [id number] Information Interpreted: non-clinical & clinical Accompanied by: Self / Same As Patient Allergies No Known Allergies Allergy (Verified 06/27/24 12:17) HPI Comments Details: This is a 56-year-old gentleman with past medical history of interstitial lung disease (likely from pneumoconiosis versus sarcoidosis), obesity, type 2 nan betes, hypertension, LUIS, who presents to the office for follow up after EGD. 03/10/22: Patient presents to the office accompanied by his , who also helps with the interpretation. Used to get his gastrointestinal care in [place] (Dr. Alf Jeronimo). Most recent colo 2020 with 2 polyps and repeat recommended in 5 years. He reports never having an upper endoscopy. Reports intermittent heartburn 3 to 4 times a month, managed with Tums. Triggered by spicy or fatty food. Denies any nausea, vomiting, regurgitation, difficulty or painful swallowing, abdominal pain. No unintentional weight loss. No changes in appetite. No changes in bowel habits. 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 As he has significant interstitial lung disease, he has been referred to our office for evaluation and management of reflux disease. 06/25/22 - EGD * Normal esophagus * Gastritis (biopsy) * Gastric ulcer (biopsy) * ? Portal hypertensive gastropathy * Peptic duodenitis (biopsy) Path: A.? Duodenum, biopsy:? Chronic active duodenitis. B.? Stomach, edge of ulcer, biopsy: - Antral-type mucosa with moderate chronic inactive inflammation and regenerative changes. - Positive for H pylori. C.? Stomach, random, biopsy: - Antral-type and oxyntic mucosa with moderate chronic, focally active, inflammation and focal intestinal metaplasia; no dysplasia identified. - Positive for H pylori. 07/14/22: Reports improvement in intermittent burning since starting the omeprazole. EGD and biopsy findings reviewed. Patient does not report any history of smoking, social alcohol use, no NSAID use. No family history of gastric cancer. We also reviewed that some endoscopic features were suggestive of portal hype rtensive gastropathy, although no features seen on histology. LFTs were normal as well. Regardless, will obtain an ultrasound liver to further evaluate, as he is at risk for fatty liver disease. This is scheduled for next Thursday. 11/06/22: EGD: * Irregular salmon colored mucosa above the GE junction suspicious for Lu's esophagus (biopsy, WATS) * Healing gastric ulcer (biopsy) * Hiatal hernia * Normal duodenum Path: A.? Stomach, healing gastric ulcer, biopsy:? Antral-type mucosa with moderate chronic, focally active, inflammation, regenerative changes and scattered non- necrotizing granulomata; no Helicobacter organisms seen. B.? EG junction, biopsy: - Cardiac-type mucosa with moderate chronic inactive inflammation and small non-necrotizing granuloma; no intestinal metaplasia seen. - Chronic esophagitis. COMMENT: The differential for the granulomata includes sarcoid, upper tract involvement by Crohns and infection. 11/21/22: Seen with the help of a live ironworker foreman. Currently reports no gastrointestinal complaints. No abd pain, N,V, heart burn. EGD results and path reviewed with the pt. Reassured that no metaplasia or precancerous changes noted. H pylori treated as discussed before. Bx and WATS negative for lu's as well. 12/09/23: Colonoscopy (Dr Hankins): Excellent prep. x3 tubular adenoma. Cecum: A 4-5 mm sessile polyp - remove with a cold biopsy Ascending Colon: A 10-12 mm sessile polyp in the proximal AC - removed with a stiff hot snare. A 2 cms sessile polyp at 100 cms in the distal AC. Polyp was behind a fold and difficult to access. 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 Treated with APC. Ano-rectum: Moderate internal hemorrhoids Path: A. Colon, cecal polyp: Polypoid colonic mucosa with no adenomatous dysplasia seen on initial levels (see comment). B. Colon, ascending, polyp: Colonic mucosa with thermal/crush artifact and no adenomatous dysplasia seen on initial levels (see comment). C. Colon, distal ascending, polyp: Sessile serrated lesion/polyp without dysplasia. B): Additional levels show features consistent with a hyperplastic polyp. Comment: (B): A sessile serrated lesion/polyp cannot be ruled out in any residual lesion and follow-up is warrante 02/08/24: Reuslts reveiwed with the pt. Currently no recurrence in rectal bleeding since APC tx. Feels well, no acute GI issues today. Results of the polyps reviewed, he is aware of the need for repeat colo in 5 years. [facility] Medical History (Updated 06/28/24 @ 00:02 by Tisha Friedman) Osteoarthritis of both hands Asthma-COPD overlap syndrome Personal history of colonic polyps Pre-op chest exam Left knee pain Annual physical exam Obese Pulmonary nodules Hiatal hernia Obesity (BMI 30-39.9) Benign essential hypertension Pure hypercholesterolemia Diabetes mellitus Coronary artery disease LUIS (obstructive sleep apnea) Chronic cough Degenerative disc disease Lung fibrosis Bronchial asthma Surgical History Hx of prostate biopsy History of esophagogastroduodenoscopy (EGD) Hx of colonoscopy S/P arterial stent Social History Housing: Apartment Alcohol intake: current Alcohol intake frequency: holidays/special occasions only Patient Tobacco Use Status: Never used Tobacco e-Cigarette/Vaping Use: Never Used Second Hand Smoke Exposure: No Substance Use Type: Marijuana service: No Current occupational status: disabled Cognitive needs: No Hearing needs: No Vision needs: Yes Review of Systems Const All systems reviewed & are unremarkable except as noted in HPI and below Physical Exam Vital Signs: Last Vital Signs Pulse 84 02/08/24 15:39 BP 132/82 02/08/24 15:39 Pulse Ox 96 02/08/24 15:39 Oxygen Delivery Method Room Air 02/08/24 15:39 BMI result Body Mass Index 38.9 No apparent distress Nonicteric Abdomen soft, nondistended Alert and oriented x3, normal gait Assessment & Plan Assessment & Plan (1) Personal history of colonic polyps: Code(s): Z86.010 - Personal history of colon polyps Category: Medical (2) Non-caseating granuloma: Code(s): L92.9 - Granulomatous disorder of the skin and subcutaneous tissue, unspecified Category: Medical (3) Rectal bleeding: Code(s): K62.5 - Hemorrhage of anus and rectum Category: Medical (4) Prostate cancer: Code(s): C61 - Malignant neoplasm of prostate Category: Medical (5) Radiation proctitis: Code(s): K62.7 - Radiation proctitis Category: Medical Plan 1. Rectal bleeding: Likely 2/2 radiation proctitis. This is now resolved since APC ablation 12/09/23. Plan: - Advised that may recur and to call our office so repeat flex sig can be booked 2. Polyps: SSL polyp likely. Plan: - Repeat colo in 5 years i.e 2028. Reminder set. 3. H pylori gastritis and ulcer ? Gastric sarcoid: Previously noted ulcer has healed up. Non-caseating granulomas noted on most recent gastric path. Unclear if ulcer from H pylori vs possible gastric sarcoid as healed after eradication of H pylori as well as with PPI therapy. In any case, does not have any residual GI sx to include abd pain, N,V, weight loss etc to warrant steroid trial. Recommendations: - Avoid NSAIDs, smoking and etOH - Pt advised to call us for any recurrence of GI sx Follow up PRN Coding Level of Care Code Est Pt Level 3 (64942) Diagnoses Personal history of colonic polyps Z86.010 Non-caseating granuloma L92.9 Rectal bleeding K62.5 Prostate cancer C61 Radiation proctitis K62.7
== END 2024-02-08 17:00 | disposition home or self-care (01) ==
PROVIDERS: PCP Internal Medicine; Visit Provider Internal Medicine
DX: Z86.0100 Personal history of colon polyps, unspecified (principal); L92.9 Granulomatous disorder of the skin and subcutaneous tissue, unspecified; K62.5 Hemorrhage of anus and rectum; C61 Malignant neoplasm of prostate; K62.7 Radiation proctitis
CPT/HCPCS: 99499

== ENCOUNTER → 2024-02-08 15:20 | Outpatient (BNVA) | payer OTHER, SELFPAY | PROVIDERS: PCP Internal Medicine; Visit Provider Internal Medicine ==

== ENCOUNTER 2024-02-10 11:05 | Outpatient (AMB) | payer MEDICARE, MEDICAID, SELFPAY ==
--- NOTE | 2024-02-10 11:14 | A.OFFPC_ITS ---
Vital Signs 02/10/24 11:15 Height 5 ft 10 in Weight 268 lb 2 oz BMI 38.5 BP 128/82 Blood Pressure Location Lt brachial Position Sitting Pulse 86 Pulse Source Pulse Oximeter Pulse Oximetry (%) 93 Oxygen Delivery Method Room Air Intake Visit Reasons: hyperlipidemia, CAD, DM, HTN Elevator Technician Required: No Accompanied by: Self / Same As Patient Allergies No Known Allergies Allergy (Verified 02/10/24 12:37) Medication List - Last Reconciled 02/10/24 by Clayton Raza MD albuterol sulfate 90 mcg/actuation (Ventolin HFA) 2 puffs inhalation Q6H PRN albuterol sulfate 2.5 mg (3 mL) inhalation BID 30 days amlodipine 10 mg PO DAILY 90 days aspirin 81 mg PO DAILY 90 days blood pressure test kit-large As directed [DISPOSABLE BED PADS As directed] enalapril maleate 20 mg PO DAILY ezetimibe 10 mg PO DAILY ixnoebgzkts-vxqncbmnh-ptwyzuat 200-62.5-25 mcg (Trelegy Ellipta) 1 inh inhalation DAILY 30 days metformin 250 mg (1/2 x 500 mg) PO DAILY 30 days montelukast (Singulair) 10 mg PO BEDTIME 30 days nabumetone 750 mg PO BID PRN 30 days nebulizers As directed rosuvastatin 40 mg PO DAILY tamsulosin mg PO DAILY terazosin 5 mg PO BEDTIME 90 days [WHEELED WALKER As directed] Tobacco use date assessed: 02/10/24 Dental Screening Dental Screen Date: 02/10/24 Did you have a dental visit in the last 12 months?: No Did you have a dental problem in the last 6 months where you did not have access to dental care?: No Was dental information given to patient?: No HPI hyperlipidemia, CAD, DM, HTN HPI Details Patient comes in today for his follow-up visit States that he has been experiencing increasing pain over his lower back and over both of his knees lately Is requesting for something to help with his lower back pain and joint pains He denies any recent injury or trauma to his lower back or his knees He denies any headaches or dizziness Denies any chest pains, no shortness of breath No nausea/vomiting, no abdominal pain No change in bowel habits noted He was not able to get his follow-up labs done yet - states that he can go over and get them done right after his office visit today [facility] Medical History (Updated 02/15/24 @ 03:34 by Clayton Raza MD) Osteoarthritis of both hands Asthma-COPD overlap syndrome Personal history of colonic polyps Pre-op chest exam Left knee pain Annual physical exam Obese Pulmonary nodules Hiatal hernia Obesity (BMI 30-39.9) Benign essential hypertension Pure hypercholesterolemia Diabetes mellitus Coronary artery disease LUIS (obstructive sleep apnea) Chronic cough Degenerative disc disease Lung fibrosis Bronchial asthma Surgical History Hx of prostate biopsy History of esophagogastroduodenoscopy (EGD) Hx of colonoscopy S/P arterial stent Social History Housing: Apartment Alcohol intake: current Alcohol intake frequency: holidays/special occasions only Patient Tobacco Use Status: Never used Tobacco e-Cigarette/Vaping Use: Never Used Second Hand Smoke Exposure: No Substance Use Type: Marijuana service: No Current occupational status: disabled Cognitive needs: No Hearing needs: No Vision needs: Yes Questionnaire PHQ-9 Over the last 2 weeks, how often have you been bothered by any of the following problems? 1. Little interest or pleasure in doing things: not at all 2. Feeling down, depressed, or hopeless: not at all 3. Trouble falling or staying asleep, or sleeping too much: not at all 4. Feeling tired or having little energy: not at all 5. Poor appetite or overeating: not at all 6. Feeling bad about yourself - or that you are a failure or have let yourself or your family down: not at all 7. Trouble concentrating on things, such as reading the newspaper or watching television: not at all 8. Moving or speaking so slowly that other people could have noticed. Or the opposite - being so fidgety or restless that you have been moving around a lot more than usual: not at all 9. Thoughts that you would be better off or of hurting yourself in some way: not at all Total score: 0 Depression Screening Interpretation: Negative Depression Screening Done: Yes 70420 - PHQ-9 Billing: Yes Source: Developed by Drs. Aram Christopher, Carrie Urban Cohn and colleagues, with an educational bud from [employer]. Thrive Questionnaire Date Thrive assessed: 02/10/24 I am a: Patient What is your living situation today?: I have a steady place to live Within the past 12 months, did the food you bought not last and you didn't have the money to get more?: Never true Within the past 12 months, did you worry whether your food would run out before you got money to buy more?: Never true Do you have trouble paying for medicines?: No Do you have trouble getting transportation to medical appointments?: No Do you have trouble paying your heating and electricity bill?: No Do you have trouble taking care of your child, family member or friend?: No Do you have trouble with day-to-day activities such as bathing, preparing meals, shopping, managing finances, etc.?: No Are you currently unemployed and looking for a job?: No Are you interested in more education?: No Please select the resources that you would like help with: None Currently or been in a relationship where the following occur: No concerns reported THRIVE Score: 0 AUDIT C Alcohol Use Questionnaire (AUDIT-C) 1. How often do you have a drink containing alcohol?: Monthly or less 2. How many drinks containing alcohol do you have on a typical day when you are drinking?: 1 or 2 3. How often do you have six or more drinks on one occasion?: Never Total Score: 1 Score Reviewed/Action Taken: Yes JUAN LUIS-7 AMB Questionnaire JUAN LUIS-7 Date JUAN LUIS - 7 assessed: 02/10/24 Feeling nervous, anxious, or on edge: 0 = Not at all Not being able to stop or control worryin = Not at all Worrying too much about different things: 0 = Not at all Trouble relaxin = Not at all Being so restless that it is hard to sit still: 0 = Not at all Becoming easily annoyed or irritable: 0 = Not at all Feeling afraid as if something awful might happen: 0 = Not at all Total JUAN LUIS-7 score (0-4 normal; 5-9 mild; 10-14 moderate; 15-21 severe): 0 Source: Developed by Drs. Aram Christopher, Urban Becerra and colleagues, with an educational bud from [employer]. Review of Systems Const Denies chills, Denies fatigue, Denies fever(s) and Denies headache(s) ENT Denies dysphagia, Denies dizziness, Denies otalgia, Denies headache(s), Denies neck pain, Denies odynophagia and Denies sore throat Card Denies chest pain, Denies palpitations and Denies dyspnea Resp Denies cough, Denies dyspnea and Denies wheezing GI Denies abdominal pain, Denies constipation, Denies dysphagia, Denies heartburn, Denies diarrhea, Denies nausea, Denies odynophagia and Denies vomiting Denies dysuria, Denies nocturia and Denies urinary frequency Musc Reports back pain (over the lower back - increased lately), Reports arthralgias (over both knees) and Denies neck pain Skin/Breast Denies rash Neuro Denies dizziness and Denies headache(s) Endo Denies fatigue and Denies palpitations Aller/Immun Denies wheezing Physical exam (Primary Care) Vital Signs: Last Vital Signs Pulse 86 02/10/24 11:15 BP 128/82 02/10/24 11:15 Pulse Ox 93 02/10/24 11:15 Oxygen Delivery Method Room Air 02/10/24 11:15 BMI result Body Mass Index 38.5 Tobacco/Smoking Status: Tobacco use Status Tobacco use date assessed 02/10/24 02/10/24 11:20 Patient Tobacco Use Status Never used Tobacco 02/10/24 11:20 e-Cigarette/Vaping Use Never Used 02/10/24 11:20 PHQ-9: PHQ-9 Score PHQ-9: Total score 0 02/15/24 03:35 Depression Screening Interpretation: Negative Thrive Assessment: Date of Thrive Assessment Date Thrive assessed 02/10/24 02/10/24 11:20 Currently or been in a relationship where the following occur: No concerns reported Const General: no acute distress and alert HENMT Ears: TM's normal bilaterally and EAC's normal Throat: Yes posterior oropharynx normal and Yes tonsils normal (no TP congestion) Neck Neck: Yes no lymphadenopathy and Yes supple Thyroid: Thyroid normal Resp Auscultation: no rales, no wheezes and diminished lung sounds (slightly) bilateral Cardio Rate: regular rate Rhythm: regular rhythm Heart sounds: no murmurs GI Palpation (GI): Soft to palpation and nontender Auscultation: normal bowel sounds General: Yes no CVA tenderness Back/Spine/Pelvis Back: no CVA tenderness Thoracic/Lumbar Spine: lumbar spinal tenderness Skin Rashes: no rashes Extrem General: Yes no clubbing, cyanosis or edema Right lower extremity: knee Details: tenderness; no swelling Left lower extremity: knee Details: tenderness; no swelling Coding Level of Care Code Est Pt Level 4 (13032) Diagnoses Pulmonary fibrosis J84.10 Asthma-COPD overlap syndrome J44.9 Coronary artery disease involving [place] coronary artery of [place] heart without angina pectoris I25.10 Associated angina: without angina Coronary Disease-Associated Artery/Lesion type: [place] artery [place] vs. transplanted heart: [place] heart Type 2 diabetes mellitus without complication, without long-term current use of insulin E11.9 Diabetes mellitus complication status: without complication Diabetes mellitus terminologist insulin use: without longterm use Diabetes mellitus type: type 2 Pure hypercholesterolemia E78.00 Benign essential hypertension I10 Prostate cancer C61 Degeneration of intervertebral disc of lumbar region with discogenic back pain M51.360 Disc-related pain type: discogenic back pain only Primary osteoarthritis of both hands M19.041; M19.042 Osteoarthritis type: primary Pain in both knees, unspecified chronicity M25.561; M25.562 Chronicity: unspecified Gastroesophageal reflux disease without esophagitis K21.9 Esophagitis presence: without esophagitis Obesity (BMI 30-39.9) E66.9 Assessment & Plan Assessment & Plan (1) Pulmonary fibrosis: Code(s): J84.10 - Pulmonary fibrosis, unspecified Category: Medical Plan: Chest CT done on 12/02/2021 revealed (+) chronic pulmonary parenchymal changes with nodules measuring up to 0.9 cm, with (+) coarsely calcified mediastinal/hilar lymph nodes suggesting old granulomatous disease Follow up CT done on 01/06/2023 revealed no interval change in bilateral pulmonary nodules and recommend follow up chest CT in 18 to 24 months He is scheduled to have follow up chest CT done in a couple of days Continue Trelegy Ellipta 200-62.5-25 mcg 1 inhalation QD Follow up with pulmonary as scheduled (2) Asthma-COPD overlap syndrome: Code(s): J44.9 - Chronic obstructive pulmonary disease, unspecified Category: Medical Plan: Stable/controlled Continue Trelegy Ellipta 200-62.5-25 mcg 1 inhalation QD and Albuterol HFA 2 inhalations Q 6 hours PRN He also has Albuterol nebulizer solution to use with his updraft machine Q 6 hours when needed Follow up with pulmonary as scheduled (3) Coronary artery disease: Comment: S/P coronary stent following cardiac cath.-2018-[facility] / [facility] w[facility]HCS Code(s): I25.10 - Atherosclerotic heart disease of [place] coronary artery without angina pectoris Category: Medical Qualifiers: Associated angina: without angina Coronary Disease-Associated Artery/Lesion type: [place] artery [place] vs. transplanted heart: [place] heart Qualified Code(s): I25.10 - Atherosclerotic heart disease of [place] coronary artery without angina pectoris Plan: Patient states that he is currently asymptomatic from a cardiovascular standpoint Continue Aspirin 81 mg QD and aggressive risk factor reduction [place] [facility] [place] (4) Diabetes mellitus: Code(s): E11.9 - Type 2 diabetes mellitus without complications Category: Medical Qualifiers: Diabetes mellitus complication status: without complication Diabetes mellitus longterm insulin use: without terminologist use Diabetes mellitus type: type 2 Qualified Code(s): E11.9 - Type 2 diabetes mellitus without complications Plan: His in-office HgbA1c done today is at 6.1% (was at 5.8% when previously checked in 06/2023) - goal is <6.5% Reinforced diabetic diet Continue Metformin 500 mg 1/2 tablet QD (5) Pure hypercholesterolemia: Code(s): E78.00 - Pure hypercholesterolemia, unspecified Category: Medical Plan: Patient was not able to get his follow up labs done prior to his visit today - will try to get them done NOMAN Reinforced low cholesterol diet Continue Rosuvastatin 40 mg QD and Ezetimibe 10 mg QD Will recheck his labs and fasting lipids in 4 months for follow up (6) Benign essential hypertension: Code(s): I10 - Essential (primary) hypertension Category: Medical Plan: Reinforced low sodium diet - goal is systolic BP of at least 120 mm or less Continue Amlodipine 10 mg QD and Enalapril 20 mg QD (7) Prostate cancer: Comment: 08/24 high volume grade group 3 Code(s): C61 - Malignant neoplasm of prostate Category: Medical Plan: He was diagnosed with prostate cancer (adenocarcinoma) last year and completed radiation Tx at [facility] - started on 03/02/2023 Continue Tamsulosin 0.4 mg Q HS and Terazosin 5 mg Q HS Follow up with urology as scheduled (8) Lumbar degenerative disc disease: Code(s): M51.36 - Other intervertebral disc degeneration, lumbar region Category: Medical Qualifiers: Disc-related pain type: discogenic back pain only Qualified Code(s): M51.360 - Other intervertebral disc degeneration, lumbar region with discogenic back pain only Plan: Lumbar spine x-rays last done in July 2023 revealed (+) multilevel lumbar spondylosis more pronounced at L5-S1 where there is neural foraminal encroachment; there are also very prominent left lateral osteophytes at L2 and L3. There is trace retrolisthesis of L5 on S1, otherwise, anatomic alignment is normal With his Hx of prostate cancer and increasing low back pain lately, will send him for repeat lunbar spine x-rays for further evaluation (9) Osteoarthritis of both hands: Code(s): M19.041 - Primary osteoarthritis, right hand; M19.042 - Primary osteoarthritis, left hand Category: Medical Qualifiers: Osteoarthritis type: primary Qualified Code(s): M19.041 - Primary osteoarthritis, right hand; M19.042 - Primary osteoarthritis, left hand Plan: X-rays of both hands done back in June 2022 revealed (+) mild osteoarthritis changes in both hands Labs done last year came back (+) for ZAHIDA; RA was negative Continue OTC Tylenol PRN for pain but avoid NSAIDs (10) Bilateral knee pain: Code(s): M25.561 - Pain in right knee; M25.562 - Pain in left knee Category: Medical Qualifiers: Chronicity: unspecified Qualified Code(s): M25.561 - Pain in right knee; M25.562 - Pain in left knee Plan: Left knee x-rays done back in June 2022 revealed (+) mild OA changes Will send him for repeat bilateral knee x-rays for further evaluation Will also refer him to orthopedics for further evaluation and management (11) GERD (gastroesophageal reflux disease): Code(s): K21.9 - Gastro-esophageal reflux disease without esophagitis Category: Medical Qualifiers: Esophagitis presence: without esophagitis Qualified Code(s): K21.9 - Gastro-esophageal reflux disease without esophagitis Plan: Dietary restrictions reinforced Continue Omeprazole 20 mg QD Follow up with GI as scheduled (12) Obesity (BMI 30-39.9): Code(s): E66.9 - Obesity, unspecified Category: Medical Plan: Reinforced diet/exercise as tolerated/lose weight Plan Follow up in 4 months Orders: Orders XR knee RT 4V 02/10/24 M25.561 - Pain in right knee XR lumbar spine 2-3V 02/10/24 M54.50 - Low back pain, unspecified Complete Blood Count Auto Diff 4 Months D64.9 - Anemia, unspecified Hemoglobin A1c 4 Months E11.9 - Type 2 diabetes mellitus without complications Vitamin D 25-OH Total 4 Months E55.9 - Vitamin D deficiency, unspecified XR knee LT 4V 02/10/24 M25.562 - Pain in left knee Lipid Panel 4 Months E78.00 - Pure hypercholesterolemia, unspecified Comprehensive [place]. Panel Fast 4 Months E78.00 - Pure hypercholesterolemia, unspecified Microalbumin, Random (w Creat) 4 Months E11.9 - Type 2 diabetes mellitus without complications UA CC w/rflx Micro + Cult 4 Months R30.0 - Dysuria Referrals Orthopedics Referral M25.561 - Pain in right knee, M25.562 - Pain in left knee Medications: New nabumetone Take with food 750 mg PO BID 30 days PRN 60 tabs 2RF joint pain and low back pain
[2024-02-10 11:15] VITALS: BP 128/82; PULSE 86; O2SAT 93; BMI 38.5
== END 2024-02-10 11:34 | disposition home or self-care (01) ==
PROVIDERS: PCP Internal Medicine; Visit Provider Internal Medicine
DX: J84.10 Pulmonary fibrosis, unspecified (principal); J44.9 Chronic obstructive pulmonary disease, unspecified; E11.9 Type 2 diabetes mellitus without complications; C61 Malignant neoplasm of prostate; I25.10 Atherosclerotic heart disease of native coronary artery without angina pectoris; E78.00 Pure hypercholesterolemia, unspecified; I10 Essential (primary) hypertension; M51.360 Other intervertebral disc degeneration, lumbar region with discogenic back pain only; M19.041 Primary osteoarthritis, right hand; M19.042 Primary osteoarthritis, left hand; M25.561 Pain in right knee; M25.562 Pain in left knee

== ENCOUNTER 2024-02-10 11:05 | Outpatient (REF) | payer OTHER, SELFPAY ==
--- NOTE | ~2024-02-10 | XR_ITS ---
EXAMINATION: XR LEFT KNEE 4 VIEWS CLINICAL INFORMATION: Pain in left knee M25.562. COMPARISON: XR Left knee 06/18/2022 TECHNIQUE: Four views of the left knee. FINDINGS: No fracture or joint effusion. Alignment is anatomic. Joint spaces are mildly narrowed with mild bony spurring. No abnormal soft tissue calcification. Vascular calcifications. XR/XR knee LT 4V IMPRESSION: Mild degenerative change in the left knee. Electronically signed by: Aram Correa MD 04/18/2024 11:43 AM EST
--- NOTE | ~2024-02-10 | XR_ITS ---
EXAMINATION: XR RIGHT KNEE 4 VIEWS CLINICAL INFORMATION: Pain in right knee M25.561. COMPARISON: None available. TECHNIQUE: Three views of the right knee. FINDINGS: No fracture or joint effusion. Alignment is anatomic. Joint spaces are moderately narrowed greatest in the medial compartment. Tricompartmental osteophyte formation. No abnormal soft tissue calcification. Vascular calcifications. XR/XR knee RT 4V IMPRESSION: Moderate degenerative change in the right knee. Electronically signed by: Aram Correa MD 04/18/2024 11:41 AM [facility]
--- NOTE | ~2024-02-10 | XR_ITS ---
EXAMINATION: XR LUMBAR SPINE 3 VIEWS CLINICAL INFORMATION: Low back pain, unspecified M54.50. COMPARISON: XR Lumbar spine 07/07/2023 TECHNIQUE: Three views of the lumbosacral spine. FINDINGS: Vertebral body heights are preserved. There is moderate to severe degenerative disc disease at L5-S1 and mild throughout the remainder of the lumbar spine. Multilevel osteophyte formation greatest in the lower lumbar spine. Facet arthropathy greatest at L4-L5 and L5-S1. Sacroiliac joints are intact. XR/XR lumbar spine 2-3V IMPRESSION: Moderate to severe degenerative disc disease at L5-S1. Electronically signed by: Aram Correa MD 04/18/2024 11:42 AM [facility]
[2024-02-10 12:22] LABS: MANUAL DIFF FLAG NO
[2024-02-10 12:28] LABS: Eosinophils Absolute Auto 0.1 X10*3/uL (0.0-0.4); Eosinophils Percent Auto 2.7 % (0-4); Hematocrit 44.7 % (42.0-52.0); Lymphocytes Absolute Auto 0.8 X10*3/uL (1.2-4.9); Mean Corpuscular HGB Conc 33.6 g/dl (31.0-36.0); Mean Corpuscular Hemoglobin 29.8 pg (27.0-33.0); Mean Corpuscular Volume 88.7 fL (80.0-98.0); Mean Platelet Volume 9.2 fL (9.4-12.4); Monocytes Absolute Auto 0.6 X10*3/uL (0.1-1.2); Monocytes Percent Auto 18.6 % (2-11); Neutrophils Absolute Auto 1.5 x10*3/uL (2.0-8.3); Neutrophils Percent Auto 49.7 % (45-73); Platelet Count 260 X10*3/uL (160-400); Red Blood Count 5.04 X10*6/uL (4.60-5.80); Red Cell Distribution Width 17.1 % (11.0-16.0)
[2024-02-10 12:39] LABS: Estimated Average Glucose 128 mg/dL; Hemoglobin A1C 164.5074 umol/L; Hemoglobin A1c % 6.1 % (<6.0); Total Hemoglobin (HGBA1C) 3790.8554 umol/L
[2024-02-10 12:48] LABS: Appearance Urine Clear; Color Urine Yellow; Glucose Urine UA Negative (Negative); Leukocyte Esterase Urine Negative (Negative); Nitrite Urine Negative (Negative); PH 5.5 (5.0-9.0); Specific Gravity - Urine 1.025 (1.005-1.025); Urine Blood Negative (Negative); Urine Ketones Trace mg/dL (Negative); Urine Protein Negative (Neg-Trace)
[2024-02-10 13:09] LABS: Alanine Aminotransferase 28 U/L (0-40); Albumin Level 4.2 g/dL (3.5-5.0); Alkaline Phosphatase 62 U/L (39-117); Anion Gap 10 (12-20); Aspartate Amino Transferase 24 U/L (5-37); Bilirubin Total 0.6 mg/dL (0.0-1.0); Blood Urea Nitrogen 12 mg/dL (9-16); Calcium 9.1 mg/dL (8.4-10.2); Carbon Dioxide 28 mmol/L (22-29); Chloride 108 mmol/L (96-108); Cholesterol 145 mg/dL (<200); Estimated Glomerular Filt Rate > 60; Glucose Fasting 101 mg/dL (60-99); HDL Cholesterol 70 mg/dL (>40); LDL Cholesterol Calculated 65 mg/dL (<100); Potassium 4.1 mmol/L (3.3-5.1); Sodium 142 mmol/L (135-145); Total Protein 7.2 g/dL (6.5-8.0); Triglycerides 50 mg/dL (<150)
[2024-02-10 13:11] LABS: Creatinine Urine 193.92 mg/dL; Microalbum/Creatinine Ratio Ur 18.5 ug/mg cr (<30)
[2024-02-10 13:16] LABS: TSH reflex Free T4 0.72 uIU/mL (0.32-4.0); Vitamin D 25-OH Total 21.9 ng/mL (>30)
== END 2024-02-10 11:06 | disposition home or self-care (01) ==
LOC: HO.XRAY 11:05
PROVIDERS: PCP Internal Medicine; Visit Provider Internal Medicine
DX: D64.9 Anemia, unspecified (principal); E78.00 Pure hypercholesterolemia, unspecified; R30.0 Dysuria; E11.9 Type 2 diabetes mellitus without complications; E55.9 Vitamin D deficiency, unspecified; M25.561 Pain in right knee; M25.562 Pain in left knee; I25.10 Atherosclerotic heart disease of native coronary artery without angina pectoris; I10 Essential (primary) hypertension; J84.10 Pulmonary fibrosis, unspecified; J44.9 Chronic obstructive pulmonary disease, unspecified; M51.360 Other intervertebral disc degeneration, lumbar region with discogenic back pain only; M19.041 Primary osteoarthritis, right hand; M19.042 Primary osteoarthritis, left hand; K21.9 Gastro-esophageal reflux disease without esophagitis; E66.9 Obesity, unspecified; Z79.899 Other long term (current) drug therapy
CPT/HCPCS: 36415; 72100; 73564; 80053; 80061; 81003; 82043; 82306; 82570; 83036; 84443; 85025; 99212

== ENCOUNTER 2024-02-12 08:17 | Outpatient (REF) | payer OTHER, SELFPAY ==
--- NOTE | ~2024-02-12 | CT_ITS ---
EXAMINATION: CT CHEST WITHOUT CONTRAST CLINICAL INFORMATION: Abnormal lungs. Pulmonary nodule. COMPARISON: CT chest dated January 06, 2023. TECHNIQUE: Multidetector volumetric CT imaging of the chest was done. Axial MIP volume rendering provided. Sagittal and coronal reformatted images were obtained. This CT examination was performed using dose optimization techniques as appropriate, variously including the following: *Automated exposure control *Adjustment of mA and/or kV according to patient size (this includes techniques or standardized protocols for targeted exams where dose is matched to indication/reason for exam; i.e. extremities or head) *Use of iterative reconstruction technique DLP: 280 mGy-cm FINDINGS: Submitted for interpretation on April 13, 2024. There are multiple, bilaterally, less than 5 mm noncalcified pulmonary nodules involving the upper and lower lobes with a peribronchial vascular bundle distribution. Bilateral multifocal patchy pulmonary groundglass and linear attenuations extending from the pulmonary hilum into the peripheral lungs. Multiple calcified subcentimeter lymph nodes, mediastinum and perihilar bilaterally. No bronchiectasis. No honeycombing. No pleural effusion. No pneumothorax. Respiratory airways patent. No hyperinflation. Calcified plaques in the coronary arteries and thoracic aorta as well as its main branches. No aneurysm, thoracic aorta. No pericardial effusion. Hiatal hernia, small to moderate size. There is a subtle nodular surface of the liver. Calcified plaques in the abdominal aorta wall and the included mesenteric arteries. The thyroid gland is not enlarged. No axillary lymphadenopathy. Multilevel spondylosis without acute fracture or listhesis. No gross lytic or blastic lesions. CT/CT chest wo IV con IMPRESSION: Overall improved since prior examination. Posterior a granulomatous disease processes such as sarcoidosis probably stage II. Coronary artery disease and atherosclerosis disease. Questionable hepatocellular disease/cirrhosis. Fleischner guidelines were followed. Electronically signed by: [place] Jim MD 04/13/2024 08:04 AM EST
== END 2024-02-12 08:18 | disposition home or self-care (01) ==
LOC: HO.CT 08:17
PROVIDERS: PCP Internal Medicine; Visit Provider Hospitalist
DX: R91.8 Other nonspecific abnormal finding of lung field (principal); C61 Malignant neoplasm of prostate
CPT/HCPCS: 71250

== ENCOUNTER → 2024-02-12 08:19 | Outpatient (BNV) | payer OTHER, SELFPAY | PROVIDERS: PCP Internal Medicine; Visit Provider Radiology Diagnostic Radiology | DX: R91.8 Other nonspecific abnormal finding of lung field (principal) | CPT/HCPCS: 71250 ==

== ENCOUNTER 2024-02-25 09:43 | Outpatient (REF) | payer OTHER, SELFPAY ==
[2024-02-25 10:46] VITALS: PULSE 83; RESP 16; O2SAT 96
--- NOTE | 2024-02-25 10:53 | PFT_ITS ---
Flows: FEV1: 57 % of predicted at 2.06 L FVC: 69 % of predicted at 3.23 L FEV1/FVC: 64 % Bronchodilator response: Absent Volumes: Total lung capacity: 64 % of predicted at 4.60 L Residual volume: 62 % of predicted at 1.37 L Slow vital capacity: 63 % of predicted at 3.23 L Expiratory reserve volume: 17 % of predicted at 0.23 L Diffusion capacity: Mildly decreased, corrects to normal after adjustment for alveolar ventilation. Impression: Combined moderate obstructive and restrictive ventilatory defects with no bronchodilator response. Decreased expiratory reserve volume suggests extrathoracic restriction likely secondary to abdominal obesity. Decreased diffusion capacity suggests emphysema. MTDD
== END 2024-02-25 09:44 | disposition home or self-care (01) ==
LOC: HO.RESP 09:43
PROVIDERS: PCP Internal Medicine; Visit Provider Hospitalist
DX: J44.9 Chronic obstructive pulmonary disease, unspecified (principal)
CPT/HCPCS: 94010; 94640; 94727; 94729

== ENCOUNTER → 2024-02-25 10:53 | Outpatient (BNV) | payer OTHER, SELFPAY | PROVIDERS: PCP Internal Medicine; Visit Provider Internal Medicine Pulmonary Disease | DX: J44.9 Chronic obstructive pulmonary disease, unspecified (principal) | CPT/HCPCS: 94060; 94727; 94729 ==

== ENCOUNTER 2024-03-10 09:18 | Outpatient (REF) | payer OTHER, SELFPAY | END 2024-03-10 09:19 | disposition home or self-care (01) | LOC: HO.HOSX 09:18 | PROVIDERS: Visit Provider Physician Assistant | DX: M25.561 Pain in right knee (principal); M25.562 Pain in left knee; M17.0 Bilateral primary osteoarthritis of knee | CPT/HCPCS: 73565; 99202 ==

== ENCOUNTER 2024-03-10 10:50 | Outpatient (AMB) | payer OTHER, SELFPAY ==
--- NOTE | 2024-03-10 10:57 | MHC.OFFVIS ---
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 Patient reports his pain has been present for quite some time, however recently his pain has been getting worse. He completed PT years ago which provided him with relief. He was recently diagnosed with cancer and has gained weight with undergoing radiation. His pain is equal in both knees. He has constant pain located at the anterior aspect of knees. His knees will give out on him. He complains of pain at the bottom of his feet and a tingling sensation in his right leg. He uses a cane with ambulation. tingling sensation in his right leg. Denies injury. Diclofenac is no longer providing him with relief. Hx of degenerative disc disease. 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: [employer] Superintendent Offered & Declined Accompanied by: Spouse Allergies No Known Allergies Allergy (Verified 03/10/24 11:02) Medication List - Last Reconciled 03/10/24 by Holly Viiera PA-C albuterol sulfate 90 mcg/actuation (Ventolin HFA) 2 puffs inhalation Q6H PRN albuterol sulfate 2.5 mg (3 mL) inhalation BID 30 days amlodipine 10 mg PO DAILY 90 days aspirin 81 mg PO DAILY 90 days blood pressure test kit-large As directed [DISPOSABLE BED PADS As directed] enalapril maleate 20 mg PO DAILY ezetimibe 10 mg PO DAILY xbpruqqrerc-pevndwqyx-nhezzuce 200-62.5-25 mcg (Trelegy Ellipta) 1 inh inhalation DAILY 30 days metformin 250 mg (1/2 x 500 mg) PO DAILY 30 days montelukast (Singulair) 10 mg PO BEDTIME 30 days nabumetone 750 mg PO BID PRN 30 days nebulizers As directed rosuvastatin 40 mg PO DAILY tamsulosin 0.4 mg PO BEDTIME terazosin 5 mg PO BEDTIME 90 days [WHEELED WALKER As directed] 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 He denies any injury on his knees. He reports he has constant worsening pain at the anterior aspect of his bilateral knees that is equal in both knees. His pain is aggravated with stairs, bending and walking. He also reports pain at the bottom of his feet as well as a tingling sensation in his right leg. His knee gives out on him. He uses a cane for ambulation. He has completed physical therapy in the past that provided him relief. He no longer finds relief with diclofenac. He has a history of degenerative disc disease. He reports he has been recently diagnosed with cancer and has gained weight with undergoing radiation. [facility] Medical History (Updated 03/10/24 @ 11:26 by Holly Vieira PA-C) Osteoarthritis of both hands Asthma-COPD overlap syndrome Personal history of colonic polyps Pre-op chest exam Left knee pain Annual physical exam Obese Pulmonary nodules Hiatal hernia Obesity (BMI 30-39.9) Benign essential hypertension Pure hypercholesterolemia Diabetes mellitus Coronary artery disease LUIS (obstructive sleep apnea) Chronic cough Degenerative disc disease Lung fibrosis Bronchial asthma Surgical History Hx of prostate biopsy History of esophagogastroduodenoscopy (EGD) Hx of colonoscopy S/P arterial stent Social History Housing: Apartment Alcohol intake: current Alcohol intake frequency: holidays/special occasions only Patient Tobacco Use Status: Never used Tobacco e-Cigarette/Vaping Use: Never Used Second Hand Smoke Exposure: No Substance Use Type: Marijuana service: No Current occupational status: disabled Cognitive needs: No Hearing needs: No Vision needs: Yes Review of Systems Const All systems reviewed & are unremarkable except as noted in HPI and below Physical Exam Vital Signs: BMI result Body Mass Index 38.4 Const General: cooperative, healthy appearing, comfortable, no acute distress, well developed and alert Orientation/consciousness: patient oriented x3 HEENT Head: Yes normal to inspection, Yes normocephalic and Yes atraumatic Eyes General: appearance normal, both eyes and all related structures Resp Effort & Inspection: normal respiratory effort and able to speak in complete sentences Cardio Rate: regular rate Peripheral pulses: Peripheral pulses 2+ throughout GI Palpation (GI): Soft to palpation Skin Lesions: no lesions Rashes: no rashes Neuro General: patient oriented x3 Extrem Other: Bilateral knee: Skin intact, no erythema or joint effusion. Tenderness along the medial and lateral joint line. Full ROM with crepitus. Negative Scarlet?s. No ligamentous laxity. NVI. Results Reviewed Results Reviewed: Xrays were obtained in the office today and personally reviewed by me of ibis knee show moderate oa Assessment & Plan Assessment & Plan (1) Osteoarthritis of knees, bilateral: Code(s): M17.0 - Bilateral primary osteoarthritis of knee Category: Medical Plan We discussed options which include PT, NSAIDs and injections. The patient will defer on the injection today and proceed with PT and NSAIDs. If symptoms persist, she will contact me for an injection, otherwise, PRN. Orders: Orders PT Evaluation and Treatment Today M17.0 - Bilateral primary osteoarthritis of knee XR knee standing BI Today M25.561 - Pain in right knee, M25.562 - Pain in left knee Patient Instructions: Scribed for Holly Vieira PA-C, by Kaleb Lunsford senior medical transcriptionist, on 03/10/2024 at 11:00 AM EST.? I, Holly Vieira PA-C, have personally reviewed and agree with the information entered by the scribe. Coding Level of Care Code New Pt Level 3 (13113) Complex EM visit Add On G2211 Diagnoses Osteoarthritis of knees, bilateral M17.0
[2024-03-10 11:06] VITALS: BMI 38.4
== END 2024-03-10 12:11 | disposition home or self-care (01) ==
LOC: HO.HOS 10:51
PROVIDERS: PCP Internal Medicine; Visit Provider Physician Assistant
DX: M17.0 Bilateral primary osteoarthritis of knee (principal)
CPT/HCPCS: 99203; G2211

== ENCOUNTER 2024-04-28 16:10 | Emergency (ER) | payer OTHER, SELFPAY ==
--- NOTE | ~2024-04-28 | XR_ITS ---
EXAMINATION: XR ANKLE, LEFT CLINICAL INFORMATION: fibula fracture COMPARISON: None available. TECHNIQUE: AP, lateral, and mortise views of the left ankle. FINDINGS: The left ankle is in a cast. A displaced oblique distal fibular fracture. There is distracted ankle mortise and subtalar joint is normal. A small retrocalcaneal enthesophyte. XR/XR ankle LT min 3V IMPRESSION: Displaced oblique distal fibular fracture with distracted ankle mortise. The left ankle is in a cast. Electronically signed by: Cornel Mason MD 04/28/2024 07:03 PM EST LEILA
[2024-04-28 16:42] VITALS: BP 122/81; PULSE 84; RESP 18; TEMP 36.4; O2SAT 97; BMI 36.6
--- NOTE | 2024-04-28 16:47 | ED_ITS ---
HPI - General Adult General Chief complaint: Extremity Injury, Lower Stated complaint: left ankle fx 04/23 Time Seen by Provider: 04/28/24 18:13 Source: patient, family, RN notes reviewed, old records reviewed and educational interpreter Mode of arrival: wheelchair Limitations: language barrier History of Present Illness ED Provider: Tasha HPI narrative: 58-year-old male past medical history significant for COPD, coronary artery disease, GERD, hypertension, diabetes, hyperlipidemia presents for evaluation a left ankle fracture. Patient fell 5 days ago in [place]. He reports that his foot bent backwards. He was seen in a hospital there and had x-rays. He was diagnosed with a left distal fibula fracture. He was told that he needed to have surgery. He was instructed to follow-up [place] where he is from due to insurance reasons He has crutches and has been elevating the leg, he knows he should be nonweightbearing He has 8/10 pain to the area Related Data Home Medications ?Medication ?Instructions ?Recorded ?Confirmed nebulizers 07/07/23 03/10/24 tamsulosin 0.4 mg capsule 0.4 mg PO BEDTIME 02/15/24 03/10/24 Previous Rx's ?Medication ?Instructions ?Recorded blood pressure test kit-large #1 ea 10/02/21 DISPOSABLE BED PADS #60 ea 06/22/23 WHEELED WALKER #1 ea 06/22/23 aspirin 81 mg tablet,delayed 81 mg PO DAILY 90 days #90 tabs 10/19/23 release rosuvastatin 40 mg tablet 40 mg PO DAILY #90 tabs 12/24/23 terazosin 5 mg capsule 5 mg PO BEDTIME 90 days #90 caps 01/05/24 albuterol sulfate 2.5 mg/3 mL 2.5 mg (3 mL) inhalation BID 30 01/08/24 (0.083 %) solution for nebulization days #180 mL albuterol sulfate 90 mcg/actuation 2 puff inhalation Q6H PRN for 01/08/24 aerosol inhaler (Ventolin HFA) wheezing #18 ea fluticasone fur. 200 mcg-umeclid 1 inh inhalation DAILY 30 days #60 01/08/24 62.5 mcg-vilant 25 mcg ea inhalat.powder (Trelegy Ellipta) montelukast 10 mg tablet 10 mg PO BEDTIME 30 days #30 tabs 01/08/24 (Singulair) nabumetone 750 mg tablet 750 mg PO BID PRN joint pain and 02/10/24 low back pain 30 days #60 tabs ezetimibe 10 mg tablet 10 mg PO DAILY #90 tabs 02/26/24 amlodipine 10 mg tablet 10 mg PO DAILY 90 days #90 tabs 03/03/24 enalapril maleate 20 mg tablet 20 mg PO DAILY #90 tabs 03/03/24 metformin 500 mg tablet 250 mg (1/2 x 500 mg) PO DAILY 30 03/03/24 days #15 tabs Allergies Allergy/AdvReac Type Severity Reaction Status Date / Time No Known Allergies Allergy Verified 04/28/24 16:47 Review of Systems Constitutional: Constitutional: Denies body ache(s), Denies chills and Denies fever(s) Eyes: Eyes: Denies blurry vision ENT: Denies vertigo Cardiovascular: Cardiovascular: Denies dyspnea Respiratory: Respiratory: Denies cough and Denies dyspnea Musculoskeletal: Musculoskeletal: Reports arthralgias, Reports joint swelling and Reports limited range of motion Integumentary/Breasts: Skin/Breast: Denies rash Neurologic: Denies vertigo [facility] Past Medical History Medical History (Updated 04/28/24 @ 18:18 by Daniel Cordova) Osteoarthritis of both hands Asthma-COPD overlap syndrome Personal history of colonic polyps Pre-op chest exam Left knee pain Annual physical exam Obese Pulmonary nodules Hiatal hernia Obesity (BMI 30-39.9) Benign essential hypertension Pure hypercholesterolemia Diabetes mellitus Coronary artery disease LUIS (obstructive sleep apnea) Chronic cough Degenerative disc disease Lung fibrosis Bronchial asthma Surgical History Hx of prostate biopsy History of esophagogastroduodenoscopy (EGD) Hx of colonoscopy S/P arterial stent Social History Social History Housing: Apartment Alcohol intake: current Alcohol intake frequency: holidays/special occasions only Patient Tobacco Use Status: Never used Tobacco e-Cigarette/Vaping Use: Never Used Second Hand Smoke Exposure: No Substance Use Type: Marijuana Advance Directives: No Advance Directives Information Provided: Yes service: No Current occupational status: disabled Cognitive needs: No Hearing needs: No Vision needs: Yes Physical Exam ED Vital Signs: Vital Signs - 24 hr 04/28/24 16:42 Temperature 97.6 F Pulse Rate 84 Respiratory Rate 18 Blood Pressure 122/81 Pulse Oximetry 97 Oxygen Delivery Method Room Air BMI result Body Mass Index 36.6 Const General: healthy appearing, comfortable, no acute distress, alert and awake Nutritional Appearance: well nourished Orientation/consciousness: patient oriented x3 HENMT Head: Yes normocephalic and Yes atraumatic Eyes Eyelids: Yes eyelids normal Conjunctivae: conjunctivae normal Sclerae: sclerae normal Corneas: corneas normal Pupils: Equal, round and reactive pupils present EOM: EOMs intact bilaterally Neck Neck: Yes full ROM Resp Effort & Inspection: normal respiratory effort, able to speak in complete sentences and not labored Skin General skin exam: elasticity normal Neuro General: patient oriented x3 Cranial nerves: Yes Equal, round and reactive pupils present and Yes Bilaterally intact EOM present Cognition (Neuro): normal cognition Extrem Other: Left lower extremity is in a posterior walking splint. The patient is able to wiggle all his toes. Distal sensation intact. Course Course Course Narrative: RME, this is a rapid medical exam performed by Barry Cordova please refer to primary provider for complete H&P- 58-year-old male presents for evaluation of left distal fibula fracture. He reportedly fell 5 days ago and was seen in [place]. He was told that he needs surgery on the left distal fibula. However he needed to come back to [place] that she was just to get the surgery. He is in a splint at the moment. Plan for x-rays Medications Administered Discontinued Medications Generic Name Dose Route Start Last Admin Trade Name Todd PRN Reason Stop Dose Admin Ibuprofen 600 mg 04/28/24 16:48 04/28/24 16:51 Ibuprofen 600 Mg Tablet PO 04/28/24 16:49 600 mg ONCE ONE Administration Medical Decision Making Medical Decision Making MDM Narrative: Patient has a known left distal fibula fracture and a subluxation of the talotibial joint. I ordered repeat x-rays to be able to have her system. I discussed with Orthopedics, Dr. Pedraza who agrees with outpatient follow-up. The patient was strongly encouraged to elevate the leg, he was emphasized that he can not have any weight-bearing on the left foot. I discussed this with the patient and family were bedside. The patient already has crutches at home and he will be discharged with orthopedic follow-up Differential Diagnosis Differential Diagnoses: The differential diagnosis associated with the presentation includes Ankle fracture Contusion Ankle sprain Dislocation Consult Healthcare Provider Management of the patient was discussed with: Client Relations Specialist (Dr. Luz Pedraza, orthopedics) Independent Interpretation I performed an independent interpretation of an: Plain X-Ray (Left ankle fracture, distal fibula) Radiology Impression Discussion of test interpretation with radiology: I have reviewed the radiologist's reading. Discharge Plan Discharge Clinical Impression: Fracture of distal end of fibula Patient Disposition: Home, Self-Care Instructions: Leg Fracture (ED), Crutch Instructions (ED) Additional Instructions: I spoke to orthopedic surgery in you will likely need surgery on your ankle It is important that you elevate your leg above your heart while resting. Do not put any weight on your left foot. Call the number on the discharge paperwork tomorrow to schedule follow-up Use ibuprofen/Tylenol for pain Prescriptions: No Action aspirin 81 mg tablet,delayed release (DR/EC) 81 mg PO DAILY 90 Days Qty: 90 3RF rosuvastatin 40 mg tablet 40 mg PO DAILY Qty: 90 3RF ezetimibe 10 mg tablet 10 mg PO DAILY Qty: 90 3RF enalapril maleate 20 mg tablet 20 mg PO DAILY Qty: 90 1RF amlodipine 10 mg tablet 10 mg PO DAILY 90 Days Qty: 90 1RF metformin 500 mg tablet 250 mg PO DAILY 30 Days Qty: 15 1RF (DME) blood pressure test kit-large Kit See Rx Instructions .Route Qty: 1 0RF Rx Instructions: As directed (DME) WHEELED WALKER See Rx Instructions .Route .MEDSUPPLY Qty: 1 0RF Rx Instructions: As directed (DME) DISPOSABLE BED PADS See Rx Instructions .Route .MEDSUPPLY Qty: 60 12RF Rx Instructions: As directed albuterol sulfate 2.5 mg /3 mL (0.083 %) solution for nebulization 2.5 mg inhalation BID 30 Days Qty: 180 11RF albuterol sulfate [Ventolin HFA] 90 mcg/actuation HFA aerosol inhaler 2 puff inhalation Q6H PRN (Reason: for wheezing) Qty: 18 11RF Trelegy Ellipta 200-62.5-25 mcg blister with device 1 inh inhalation DAILY 30 Days Qty: 60 12RF montelukast [Singulair] 10 mg tablet 10 mg PO BEDTIME 30 Days Qty: 30 11RF nabumetone 750 mg tablet 750 mg PO BID PRN (Reason: joint pain and low back pain) 30 Days Qty: 60 2RF Rx Instructions: Take with food tamsulosin 0.4 mg capsule 0.4 mg PO BEDTIME (DME) nebulizers Misc See Rx Instructions .Route Rx Instructions: As directed terazosin 5 mg capsule 5 mg PO BEDTIME 90 Days Qty: 90 1RF Referrals: Riaz Reyes MD [Physician] - (left distal fibula fracture) Luz Pedraza MD [Physician] - Print Language: St Helenian
[2024-04-28] MEDS: Ibuprofen 600 MG TABLET PO (16:51)
[2024-04-28 18:30] VITALS: BP 122/81; PULSE 84; RESP 18; TEMP 36.4; O2SAT 97
== END 2024-04-28 18:30 | disposition home or self-care (01) ==
PROVIDERS: Emergency Provider Emergency Medicine; PCP Internal Medicine
DX: S82.892A Other fracture of left lower leg, initial encounter for closed fracture (principal); X50.1XXA Overexertion from prolonged static or awkward postures, initial encounter; E11.9 Type 2 diabetes mellitus without complications; I10 Essential (primary) hypertension; E78.5 Hyperlipidemia, unspecified; J45.909 Unspecified asthma, uncomplicated; Y93.9 Activity, unspecified; Y92.9 Unspecified place or not applicable; Y99.9 Unspecified external cause status
CPT/HCPCS: 73610; 99283

== ENCOUNTER → 2024-04-28 16:47 | Outpatient (BNV) | payer OTHER, SELFPAY | PROVIDERS: Emergency Provider Emergency Medicine; PCP Internal Medicine; Visit Provider Radiology Diagnostic Radiology | DX: S82.92XA Unspecified fracture of left lower leg, initial encounter for closed fracture (principal) | CPT/HCPCS: 73610 ==

== ENCOUNTER 2024-05-02 10:31 | Outpatient (REF) | payer OTHER, SELFPAY ==
--- NOTE | ~2024-05-02 | XR_ITS ---
CLINICAL HISTORY: M25.572 - Pain in left ankle and joints of left foot Three views of the left ankle. COMPARISON: XR left ankle dated 04/28/24 at 17:09 EST FINDINGS: Overlying cast obscures fine osseous details. Oblique displaced fracture of the distal left fibular diaphysis. There is displacement laterally of the distal fracture component by 5 mm, stable from prior imaging. Widening of the ankle mortise along the medial aspect, similar to prior imaging. Distal tibia appears intact. Plantar calcaneal spur. Irregularity along the anterior inferior aspect of the calcaneus seen only on lateral imaging. Small osteophytes along the dorsal aspect of the tarsal bones. IMPRESSION: 1. Stable alignment of displaced oblique fracture of the distal left fibular diaphysis. No evidence of healing. 2. Widening of the ankle mortise suggestive of ligamentous injury. 3. Irregularity along the anterior inferior aspect of the calcaneus seen on lateral imaging suggestive of a nondisplaced fracture. Recommend correlation clinically. This document has been electronically signed by: Kem Joyce MD on 05/02/2024 15:15:13
== END 2024-05-02 10:32 | disposition home or self-care (01) ==
LOC: HO.HOSX 10:31
PROVIDERS: Visit Provider Physician Assistant
DX: M25.572 Pain in left ankle and joints of left foot (principal)
CPT/HCPCS: 73610

== ENCOUNTER 2024-05-02 10:45 | Outpatient (REF) | payer OTHER, SELFPAY ==
[2024-05-02 11:58] LABS: Prostate Specific Antigen < 0.10 ng/mL (<0.05-4.0)
[2024-05-07 15:23] LABS: Testosterone, Total 165 ng/dL (250-1100)
== END 2024-05-02 10:46 | disposition home or self-care (01) ==
LOC: HO.LAB 10:45
PROVIDERS: PCP Internal Medicine; Visit Provider Urology
DX: C61 Malignant neoplasm of prostate (principal); Z12.5 Encounter for screening for malignant neoplasm of prostate; M25.572 Pain in left ankle and joints of left foot; S82.892A Other fracture of left lower leg, initial encounter for closed fracture
CPT/HCPCS: 27786; 36415; 84153; 84403; 99212

== ENCOUNTER 2024-05-02 11:12 | Outpatient (AMB) | payer OTHER, SELFPAY ==
--- NOTE | 2024-05-02 11:34 | A.OFFVIS_ITS ---
Intake Visit Reasons: FC- ED f/u LT distal end of fibula fx DOI 04/23/24 Intake Note: Kd is a 58 year old male who presents today with his and son for a evaluation of his left distal end of fibula fx, DOI 04/23/24. Patient slipped on ice when he was at [place]. He reports that his foot bent twice backwards. Patient states that his pain is 10/10 on the pain scale. Denies numbness and tingling. Research Computing Specialist Required: Yes Research Computing Specialist Language: Sammarinese Accompanied by: Allergies No Known Allergies Allergy (Verified 05/02/24 11:38) Medication List - Last Reconciled 05/02/24 by Holly Vieira PA-C albuterol sulfate 90 mcg/actuation (Ventolin HFA) 2 puffs inhalation Q6H PRN albuterol sulfate 2.5 mg (3 mL) inhalation BID 30 days amlodipine 10 mg PO DAILY 90 days aspirin 81 mg PO DAILY 90 days blood pressure test kit-large As directed [DISPOSABLE BED PADS As directed] enalapril maleate 20 mg PO DAILY ezetimibe 10 mg PO DAILY strzromsbnh-ooxydmlnr-bnvmsbab 200-62.5-25 mcg (Trelegy Ellipta) 1 inh inhalation DAILY 30 days [Kneeling Scooter duration 99 days] metformin 250 mg (1/2 x 500 mg) PO DAILY 30 days montelukast (Singulair) 10 mg PO BEDTIME 30 days nabumetone 750 mg PO BID PRN 30 days nebulizers As directed rosuvastatin 40 mg PO DAILY tamsulosin 0.4 mg PO BEDTIME terazosin 5 mg PO BEDTIME 90 days [WHEELED WALKER As directed] HPI HPI FC- ED f/u LT distal end of fibula fx DOI 04/23/24: Details: 58-year-old gentleman presents to the office today accompanied by his son and significant other for an injury he sustained to his left ankle on 04/23. States that he was walking outside when he slipped and fell injuring the left ankle. He went to get up when he fell again landing on that left ankle. When he look at the ankle he did notice a deformity and felt like the ankle was dangling. He was seen in the emergency department where x-rays were obtained and he was noted to have a left distal fibular fracture with mortise disruption. He was placed in a splint and referred to our office for ortho eval. Of note the patient does see Dr. Banuelos for a cardiac history, stent placement. He is on aspirin 81 mg. He has a history of diabetes on metformin only. Last A1c around 6. PFSH Medical History (Updated 05/02/24 @ 12:16 by Holly Vieira PA-C) Osteoarthritis of both hands Asthma-COPD overlap syndrome Personal history of colonic polyps Pre-op chest exam Left knee pain Annual physical exam Obese Pulmonary nodules Hiatal hernia Obesity (BMI 30-39.9) Benign essential hypertension Pure hypercholesterolemia Diabetes mellitus Coronary artery disease LUIS (obstructive sleep apnea) Chronic cough Degenerative disc disease Lung fibrosis Bronchial asthma Surgical History Hx of prostate biopsy History of esophagogastroduodenoscopy (EGD) Hx of colonoscopy S/P arterial stent Social History Housing: Apartment Alcohol intake: current Alcohol intake frequency: holidays/special occasions only Patient Tobacco Use Status: Never used Tobacco e-Cigarette/Vaping Use: Never Used Second Hand Smoke Exposure: No Substance Use Type: Marijuana service: No Current occupational status: disabled Cognitive needs: No Hearing needs: No Vision needs: Yes Review of Systems Const All systems reviewed & are unremarkable except as noted in HPI and below Physical Exam Const General: cooperative, healthy appearing, comfortable, no acute distress, well developed and alert Orientation/consciousness: patient oriented x3 HEENT Head: Yes normal to inspection, Yes normocephalic and Yes atraumatic Eyes General: appearance normal, both eyes and all related structures Neck Neck: Yes normal visual inspection and Yes no lymphadenopathy Resp Effort & Inspection: normal respiratory effort and able to speak in complete sentences Cardio Rate: regular rate Peripheral pulses: Peripheral pulses 2+ throughout GI Inspection: Yes normal to inspection Palpation (GI): Soft to palpation Skin General skin exam: no rashes or lesions noted Neuro General: patient oriented x3 Extrem Other: Left ankle normal to inspection. No open wounds or abrasions. Minimal swelling. Tenderness over the lateral malleolus and along the syndesmosis. Full sensation throughout. Psych Appearance: grossly normal Mental Status: mental status grossly normal Office Procedures Casting/Splints [id number] Leg splint application Procedure code (CPT) selection complete Results Reviewed Results Reviewed: X-rays of the left ankle obtained in the office today reviewed by me show a left distal fibular fracture with displacement of the ankle mortise. Assessment & Plan Assessment & Plan (1) Closed left ankle fracture: Code(s): S82.892A - Other fracture of left lower leg, initial encounter for closed fracture Category: Medical Qualifiers: Encounter type: initial encounter Qualified Code(s): S82.892A - Other fracture of left lower leg, initial encounter for closed fracture Plan: I discussed the extent of the injury to the patient and options available. Given the extent of the fracture pattern and high risk of further displacement, it is recommended that we surgically fix this to help with stability and restoring anatomy. I explained to the patient the procedure in detail along with the risks benefits and alternatives. Risks including but not limited to infection, wound breakdown, stiffness, on going pain, nonunion or malunion, and possible complications with hardware. She does understand all this and would like to proceed with open reduction internal fixation of the left ankle with Dr. Reyes. he will be booked accordingly. He was placed in a posterior leg splint in the office today. He was given a prescription for a kneeling scooter. Orders: Orders XR ankle LT min 3V Today M25.572 - Pain in left ankle and joints of left foot Medications: New [Kneeling Scooter] duration 99 days 1 ea 0RF S82.89 - Other fracture of left lower leg, initial encounter for closed fracture Coding Level of Care Code Est Pt Level 4 (55766) Complex EM visit Add On G2211 Diagnoses Closed fracture of left ankle, initial encounter S82. Encounter type: initial encounter CPT Codes Splint - CPT: 64211-Plezc Leg splint application ([id number])
== END 2024-05-02 12:50 | disposition home or self-care (01) ==
PROVIDERS: PCP Internal Medicine; Visit Provider Physician Assistant
DX: S82.892A Other fracture of left lower leg, initial encounter for closed fracture (principal)
CPT/HCPCS: 27786; 99214

== ENCOUNTER → 2024-05-02 11:16 | Outpatient (BNV) | payer OTHER, SELFPAY | PROVIDERS: Visit Provider Radiology Diagnostic Radiology | DX: S82.892A Other fracture of left lower leg, initial encounter for closed fracture (principal) | CPT/HCPCS: 73610 ==

== ENCOUNTER 2024-05-10 09:56 | Outpatient (AMB) | payer OTHER, SELFPAY ==
--- NOTE | 2024-05-10 09:56 | A.OFFVIS_ITS ---
Intake Visit Reasons: 4M Labs/Oncology Follow up(Pending) Intake Note: Patient is present for 4M LABS/ONCOLOGY F/U Urology Medication:TAMSULOSIN Antibiotic Allergy:NONE Blood Thinner:ASPIRIN Condemnation Engineer Required: No Allergies No Known Allergies Allergy (Verified 06/27/24 12:17) HPI Comments Details: Kd is a pleasant male. He is a patient Dr. Raza. He is seen for following urologic conditions - prostate cancer - lower urinary tract symptoms Telemedicine Evaluation 15 min Consultation Doximity Sheila Video speaks Vietnamese, he speaks Malay Completed external beam radiation April 2023 Continue interval surveillance every 6 months for 5 years 04/26 PSA <0.1 T 165 12/25 Has had some urgency and frequency with hot flashes Medications include terazosin, finasteride and gabapentin Stop finasteride, improved hot flashes PSA 08/25 <0.1, 12/25 <0.1 Prostate Cancer: 08/24 High volume Grade Group 3 - GnRH 11/23 - [facility] with EXBRT plus GnRH Apr [address] [facility] [address] Kennedy - 12 months GnRH Diagnosed by Dr. Lynn, PSA 8.8 free PSA 5% Biopsy pT1c Globe score: 4+3=7 (left apex medial, right base medial), 3+4=7 (left mid medial, right base lateral and medial, right mid lateral and medial, right apex medial), 3+3= 6 (left base lateral, left mid lateral, left apex lateral, right apex lateral) Number cores positive: 12 Total number of cores: 12 % of tissue involved: 30% of all tissue examined Periprostatic fat inv.: Not identified Seminal vesicle inv.: Not identified Perineural inv.: Present, multifocal LVI: Not identified Staging - 10/24 PET-CT no giovanny disease - 12/24 prostate MRI anterior 1.2 cm lesion, 30 g prostate, no evidence of extracapsular extension Lower urinary tract symptoms with elevated PSA Prior evaluation in [place] Did not continue evaluation secondary to COVID Referred for elevated PSA 02/22 15 Nocturia x3 No prior prostate medications DANA 2+ firm Suggest bladder ultrasound, finasteride, terazosin 5 mg and follow-up cystoscopy [facility] Medical History (Updated 06/28/24 @ 00:02 by Background Dasherman) Osteoarthritis of both hands Asthma-COPD overlap syndrome Personal history of colonic polyps Pre-op chest exam Left knee pain Annual physical exam Obese Pulmonary nodules Hiatal hernia Obesity (BMI 30-39.9) Benign essential hypertension Pure hypercholesterolemia Diabetes mellitus Coronary artery disease LUIS (obstructive sleep apnea) Chronic cough Degenerative disc disease Lung fibrosis Bronchial asthma Surgical History Hx of prostate biopsy History of esophagogastroduodenoscopy (EGD) Hx of colonoscopy S/P arterial stent Social History Housing: Apartment Alcohol intake: current Alcohol intake frequency: holidays/special occasions only Patient Tobacco Use Status: Never used Tobacco e-Cigarette/Vaping Use: Never Used Second Hand Smoke Exposure: No Substance Use Type: Marijuana service: No Current occupational status: disabled Cognitive needs: No Hearing needs: No Vision needs: Yes Review of Systems Const All systems reviewed & are unremarkable except as noted in HPI and below Reports no additional complaints Resp Reports no additional complaints GI Reports no additional complaints Reports as per HPI Musc Reports no additional complaints Physical Exam Telemedicine evaluation Appropriate responses Regular breathing rate and rhythm HEENT Head: Yes normal to inspection Ears: hearing grossly normal bilaterally Eyes General: appearance normal, both eyes and all related structures Neck Neck: Yes normal visual inspection Chest Chest palpation & inspection: normal inspection of the chest Resp Effort & Inspection: normal respiratory effort and able to speak in complete sentences Telehealth Telehealth Telehealth Platform: [employer] Location of provider rendering services: practice address Location of patient: address on file Patient Identification confirmed using: Name, : Yes Telehealth method: video Patient verbally consented to treatment: Yes Patient verbally consented to billing insurance company: Yes Patient informed of any privacy concerns related to visit: Yes Minutes spent on Phone/Video with Pt.: 15 Assessment & Plan Assessment & Plan (1) Prostate cancer: Comment: 08/24 high volume grade group 3 Code(s): C61 - Malignant neoplasm of prostate Category: Medical Plan Four month follow-up PSA and testosterone Continue terazosin Orders: Orders Testosterone, Total 4 Months C61 - Malignant neoplasm of prostate Prostate Specific Antigen 4 Months C61 - Malignant neoplasm of prostate Medications: Refilled terazosin 5 mg PO BEDTIME 90 caps 1RF 90 days C61 - Malignant neoplasm of prostate, N40.1 - Benign prostatic hyperplasia with lower urinary tract symptoms, R35.0 - Frequency of micturition Patient Instructions: Imaging studies, laboratory and physical exam results were discussed and reviewed in detail. No major barriers to patient understanding were identified. An opportunity to ask questions regarding the treatment plan was provided. All questions were answered. The patient expressed understanding and agreement with the above treatment plan. The patient is aware they should contact our office by phone for worsening of their current condition or the appearance of new urologic symptoms. Compliance is encouraged with any medications and followup testing that is ordered. It is a privilege to participate in the urologic care of your patient. If you have any questions or concerns regarding treatment for the above conditions, or other urologic issues, please do not hesitate to contact me. The office telephone contact is [phone]. This note is constructed using voice recognition software. While every effort has been made to ensure accuracy excelsior machine tender errors may have been included. Yours sincerely, Dr Inocencio Lynn MD, [facility] - Urology Providers of Expert, Compassionate Care for the Genitourinary System Coding Level of Care Code Tele Est Pt Level 3 (76679) Complex EM visit Add On G2211 Diagnoses Prostate cancer C61
== END 2024-05-10 13:12 | disposition home or self-care (01) ==
LOC: HO.HUSH 09:56
PROVIDERS: Visit Provider Urology
DX: C61 Malignant neoplasm of prostate (principal)
CPT/HCPCS: 99213; G2211

== ENCOUNTER 2024-05-11 06:52 | Day surgery (SDC) | payer OTHER, SELFPAY ==
--- NOTE | 2024-05-09 14:08 | HO.ANESPROP2 ---
Documented by User: Liudmila Davey NP 05/09/24 14:09 HPI - Anesthesia Eval Consult details Narrative: 58yo M for Left Ankle Fracture ORIF Follows [facility] cardiology for CAD s/p stent 2018, htn. Stable at 08/2023 office visit for 1 year f/u. Unilateral LE edema r/t and amlodipine PMFSH Active Problems Active Problems: All Active Problems Closed left ankle fracture (Acute) Osteoarthritis of knees, bilateral (Acute) Osteoarthritis of both hands (Acute) Bilateral knee pain (Acute) Rectal bleeding (Acute) Blood in stool (Acute) COPD exacerbation (Acute) Prostate cancer (Acute) Urinary incontinence (Acute) Osteoarthritis of knee (Acute) Lumbar degenerative disc disease (Acute) Status post fall (Acute) Left shoulder pain (Acute) Hot flashes related to aromatase inhibitor therapy (Acute) Leukopenia (Acute) Hospital discharge follow-up (Acute) Asthma-COPD overlap syndrome (Acute) Non-caseating granuloma (Acute) Prostate cancer (Acute) Stented coronary artery (Acute) Metabolic syndrome (Acute) Gastric ulcer (Acute) H. pylori infection (Acute) Arthralgia of both hands (Acute) Elevated PSA (Acute) GERD (gastroesophageal reflux disease) (Acute) BPH (benign prostatic hyperplasia) (Acute) Hand arthritis (Acute) CAD (coronary artery disease) (Acute) Enlarged prostate (Acute) DMII (diabetes mellitus, type 2) (Acute) Pulmonary fibrosis (Acute) HLD (hyperlipidemia) (Acute) HTN (hypertension) (Acute) Acute respiratory failure with hypoxia (Acute) Pulmonary nodules (Acute) Hiatal hernia (Acute) Hiatal hernia (Acute) Obesity (BMI 30-39.9) (Acute) Benign essential hypertension (Acute) Pure hypercholesterolemia (Acute) Diabetes mellitus (Acute) Coronary artery disease (Acute) LUIS (obstructive sleep apnea) (Acute) Chronic cough (Acute) Degenerative disc disease (Acute) Past Medical History Medical History (Updated 05/02/24 @ 12:16 by Holly Vieira PA-C) Osteoarthritis of both hands Asthma-COPD overlap syndrome Personal history of colonic polyps Pre-op chest exam Left knee pain Annual physical exam Obese Pulmonary nodules Hiatal hernia Obesity (BMI 30-39.9) Benign essential hypertension Pure hypercholesterolemia Diabetes mellitus Coronary artery disease LUIS (obstructive sleep apnea) Chronic cough Degenerative disc disease Lung fibrosis Bronchial asthma Family History Family history of problems with anesthesia: No Surgical History Surgical History Hx of prostate biopsy History of esophagogastroduodenoscopy (EGD) Hx of colonoscopy S/P arterial stent History of Problems with Anesthesia: No Social History Social History Housing: Apartment Alcohol intake: current Alcohol intake frequency: holidays/special occasions only Patient Tobacco Use Status: Never used Tobacco e-Cigarette/Vaping Use: Never Used Second Hand Smoke Exposure: No Use of substances other than those prescribed or required for medical reasons: Yes Substance Use Type: Marijuana Substance Use Type Other:: last smoked 05/10/24 Substance Use Frequency: Occasionally Are you DNR?: No Advance Directives: No Advance Directives Information Provided: Yes service: No Current occupational status: disabled Cognitive needs: No Hearing needs: No Vision needs: Yes Meds Allergies Allergy/AdvReac Type Severity Reaction Status Date / Time No Known Allergies Allergy Verified 05/10/24 09:57 Home Medications ?Medication ?Instructions ?Recorded ?Confirmed ?Last Taken ?Type nebulizers 07/07/23 05/02/24 Unknown History Exam Pertinent Lab Results Pertinent Lab Results: Laboratory Tests 02/10/24 12:08 WBC 3.0 L Hgb 15.0 Hct 44.7 Plt Count 260 Sodium 142 Potassium 4.1 Chloride 108 Carbon Dioxide 28 BUN 12 Creatinine 0.80 Narrative Narrative: EKG 08/2023 NSR @ 78 CHAVEZ Assessment and Plan Assessment Anesthesia Assessment: Chart Reviewed Final Anesthetic Review Family History of Problems with Anesthesia: No History of Problems with Anesthesia: No Documented by User: Erica Goldman MD 05/11/24 09:22 [facility] Past Medical History Medical History (Updated 05/02/24 @ 12:16 by Holly Vieira PA-C) Osteoarthritis of both hands Asthma-COPD overlap syndrome Personal history of colonic polyps Pre-op chest exam Left knee pain Annual physical exam Obese Pulmonary nodules Hiatal hernia Obesity (BMI 30-39.9) Benign essential hypertension Pure hypercholesterolemia Diabetes mellitus Coronary artery disease LUIS (obstructive sleep apnea) Chronic cough Degenerative disc disease Lung fibrosis Bronchial asthma Surgical History Surgical History Hx of prostate biopsy History of esophagogastroduodenoscopy (EGD) Hx of colonoscopy S/P arterial stent Social History Social History Housing: Apartment Alcohol intake: current Alcohol intake frequency: holidays/special occasions only Patient Tobacco Use Status: Never used Tobacco e-Cigarette/Vaping Use: Never Used Second Hand Smoke Exposure: No Use of substances other than those prescribed or required for medical reasons: Yes Substance Use Type: Marijuana Substance Use Type Other:: last smoked 05/10/24 Substance Use Frequency: Occasionally Are you DNR?: No Advance Directives: No Advance Directives Information Provided: Yes service: No Current occupational status: disabled Cognitive needs: No Hearing needs: No Vision needs: Yes Meds Allergies Allergy/AdvReac Type Severity Reaction Status Date / Time No Known Allergies Allergy Verified 05/10/24 09:57 Home Medications ?Medication ?Instructions ?Recorded ?Confirmed ?Last Taken ?Type nebulizers 07/07/23 05/02/24 Unknown History Exam Airway Mallampati Class: II TM Dist: >3cm Neck ROM: Full Heart: rrr Lungs: cta Assessment and Plan Assessment Anesthesia Assessment: Anesthesia Plan Discussed Final Anesthetic Review NPO: Yes ASA Class: III Final Preanesthetic Review: No Changes in Pt Med Stat, Meds/Allgs Chart Reviewed and Consent Obtained/Reviewed Patient Risk: Intermediate Procedure Risk: Low Anesthetic Plan Anesthetic Plan: GA Disposition: Standard PACU
[2024-05-11] VITALS (8 sets, daily range): BP systolic 113–128; BP diastolic 69–84; PULSE 79–91; RESP 15–18; TEMP 36.3–37.2; O2SAT 95–98; BMI 38.3
[2024-05-11] MEDS: Lactated Ringers 1,000 ML 100 ML IVCONT (08:11)
[2024-05-11 08:12] LABS: Glucose, Whole Blood 104 mg/dL (60-115)
--- NOTE | 2024-05-11 09:17 | MHC.SHP ---
Pre-Procedural Eval Section A - 24 Hr Update-Section A only Date of Service: 05/11/24 The patient is an INPATIENT: No Changes since office visit: No Cold of Flu in the past 2 weeks, No New Medical Problems, No Changes in Medication and No Patient answered all questions The patient has been examined within 24 hours of the surgical procedure. The History & Physical has been completed within 30 days and I have reviewed it.: Yes Section B - Complete if H&P > 30 days Chief Complaint: Displaced bimalleolar fracture of left lower leg, Allergies: Allergies Allergy/AdvReac Type Severity Reaction Status Date / Time No Known Allergies Allergy Verified 05/10/24 09:57 Plan I have reviewed the history and physical and performed a pertinent physical examination on my patient. No changes have occurred unless specified. Time Spent With Patient Time: Total time managing care of this patient today ____ minutes.
[2024-05-11] MEDS: fentaNYL citrate/PF 100 MCG/2 ML VIAL 50 MCG IVPUSH (11:18)
--- NOTE | 2024-05-11 11:18 | P.BOP_ITS ---
Brief Operative Note Date of Service: 05/11/24 Pre-op diagnosis: left ankle lavell equivalent Post-op diagnosis: same Procedure: ORIF lateral mal ORIF syndesmosis Implants: Mian 22 mm interference screw, 6 hole locking plate and [facility] syndesmosis cin Surgeon: Riaz Reyes MD Anesthesia: GLMA and regional Was an Curriculum Assistant Principal used for this Procedure?: Yes Curriculum Assistant Principal: Sheron Burger Estimated blood loss (mL): 25 Tourniquet time (min): 45 IV fluids (mL): 850 Pathology: none sent Condition: stable Disposition: PACU
[2024-05-11] MEDS: oxyCODONE HCl Immed Release 5 MG TABLET PO (11:25)
--- NOTE | 2024-05-12 10:51 | P.OP_ITS ---
Operative Note Operative Note Date of Service: 05/11/24 Narrative: Date of Service: 05/11/24 Pre-op diagnosis: left ankle lavell equivalent Post-op diagnosis: same Procedure: ORIF lateral mal ORIF syndesmosis Implants: [place] 22 mm interference screw, 6 hole locking plate and [facility] syndesmosis cinch Surgeon: Riaz Reyes MD Anesthesia: GLMA and regional Was an Caramel Cutter Hand used for this Procedure?: Yes Caramel Cutter Hand: Sheron Burger Estimated blood loss (mL): 25 Tourniquet time (min): 45 IV fluids (mL): 850 Pathology: none sent Condition: stable Disposition: PACU Procedure in detail: Patient was brought to the operating room and placed supine on the operative table. All bony prominences were well padded and a time-out was called to identify proper site proper procedure proper surgeon. IV antibiotics per weight were administered. I began by exsanguinating limb is slightly tourniquet to 300 mm Hg. I then made a standard posterolateral incision over the fibula. Full- thickness flaps were taken down to the fibular shaft and distal fibula. The fracture was identified and cleaned with a combination of curette, rongeur and irrigation. A lobster claw was used to provisionally reduce the fracture. I then placed a lag screw from anterior to posterior using standard AO technique to stabilize the fracture. This was placed perpendicular to the fracture line. I then selected a 6 hole distal fibular locking plate was applied using standard AO technique. Biplanar fluoroscopy was used to confirm hardware position and fracture reduction. Once I was satisfied that both of these were acceptable I irrigated copiously and turned my attention to the syndesmosis. An external rotation stress test showed clear widening of the medial clear space. I then used a K-wire to drill from lateral to medial just proximal to the physeal scar and slightly from posterior to anterior. A syndesmosis cinch was then placed through this hole and the button was locked on the medial side. A C-clamp was used to reduce the syndesmosis and the cinch was tightened to the plate. I was satisfied with the position of the hardware using AP fluoroscopy. I removed the C-clamp and an external rotation stress test showed a stable and unchanged medial clear space. I then irrigated copiously closed the medial and lateral size with absorbable suture and elvira. Patient was placed into a well-padded posterior splint. Tourniquet was let down and the patient was extubated brought to recovery room in stable condition there were no known complications.
== END 2024-05-11 12:42 | disposition home or self-care (01) ==
LOC: HO.SSS 06:52
PROVIDERS: PCP Internal Medicine; Visit Provider Orthopaedic Surgery
PROC: (CPT 27814; principal; 2024-05-11 09:50)
DX: S82.842A Displaced bimalleolar fracture of left lower leg, initial encounter for closed fracture (principal); M25.572 Pain in left ankle and joints of left foot; W00.0XXA Fall on same level due to ice and snow, initial encounter; W18.49XA Other slipping, tripping and stumbling without falling, initial encounter; Y93.01 Activity, walking, marching and hiking; Y92.89 Other specified places as the place of occurrence of the external cause; Y99.9 Unspecified external cause status; I25.10 Atherosclerotic heart disease of native coronary artery without angina pectoris; I10 Essential (primary) hypertension; Z95.5 Presence of coronary angioplasty implant and graft; J44.9 Chronic obstructive pulmonary disease, unspecified; J84.10 Pulmonary fibrosis, unspecified; R91.8 Other nonspecific abnormal finding of lung field; E11.9 Type 2 diabetes mellitus without complications; Z79.51 Long term (current) use of inhaled steroids; Z79.82 Long term (current) use of aspirin; Z79.84 Long term (current) use of oral hypoglycemic drugs; Z79.899 Other long term (current) drug therapy
CPT/HCPCS: 27814; 27829; 82947; C1713; J0131; J0665; J0690; J1100; J2003; J2250; J2405; J2704; J2795; J3010

== ENCOUNTER → 2024-05-11 06:52 | Outpatient (BNV) | payer OTHER, SELFPAY | PROVIDERS: PCP Internal Medicine; Visit Provider Orthopaedic Surgery | DX: S82.62XA Displaced fracture of lateral malleolus of left fibula, initial encounter for closed fracture (principal); S82.892A Other fracture of left lower leg, initial encounter for closed fracture | CPT/HCPCS: 27792 ==

== ENCOUNTER 2024-05-19 11:40 | Outpatient (REF) | payer OTHER, SELFPAY ==
--- NOTE | ~2024-05-19 | XR_ITS ---
EXAMINATION: XR ANKLE, LEFT CLINICAL INFORMATION: M25.572 - Pain in left ankle and joints of left foot COMPARISON: Left ankle 05/02/2024 TECHNIQUE: AP, lateral, and mortise views of the left ankle. FINDINGS: There is normal alignment of the fibular fracture status post stabilization with lateral plate and screws. The fracture fragment is in alignment. There is medial malleolar tiny plate. The surgical is elvira on either side of the joint. The ankle mortise is in alignment. The subtalar joints are normal. Small calcaneal and moderate retrocalcaneal enthesophytes are seen. XR/XR ankle LT min 3V IMPRESSION: Status post ORIF with lateral malleolar fracture alignment with lateral plate and screws. Immediate postoperative changes seen. Electronically signed by: Cornel Mason MD 05/20/2024 12:58 PM [facility]
== END 2024-05-19 11:41 | disposition home or self-care (01) ==
LOC: HO.HOSX 11:40
PROVIDERS: Visit Provider Physician Assistant
DX: M25.572 Pain in left ankle and joints of left foot (principal); S82.892A Other fracture of left lower leg, initial encounter for closed fracture
CPT/HCPCS: 29405; 73610; 99212

== ENCOUNTER 2024-05-19 13:30 | Outpatient (AMB) | payer OTHER, SELFPAY ==
--- NOTE | 2024-05-19 13:37 | A.OFFVIS_ITS ---
Intake Visit Reasons: PO LT ankle ORIF 05/11/24 NE Intake Note: Kd is a 58 year old male who presents today for a post operative LT ankle ORIF, DOS 05/11/24 NE. Splint removed and x-rays updated. Patient reports being in a lot of pain and a little numbness in his toes. Allergies No Known Allergies Allergy (Verified 05/19/24 14:02) Medication List - Last Reconciled 05/19/24 by Holly Vieira PA-C albuterol sulfate 90 mcg/actuation (Ventolin HFA) 2 puffs inhalation Q6H PRN albuterol sulfate 2.5 mg (3 mL) inhalation BID 30 days amlodipine 10 mg PO DAILY 90 days aspirin 81 mg PO DAILY 90 days blood pressure test kit-large As directed [DISPOSABLE BED PADS As directed] enalapril maleate 20 mg PO DAILY ezetimibe 10 mg PO DAILY [id number]-qakopltpc-kyxodofx 200-62.5-25 mcg (Trelegy Ellipta) 1 inh inhalation DAILY 30 days [Kneeling Scooter duration 99 days] metformin 250 mg (1/2 x 500 mg) PO DAILY 30 days montelukast (Singulair) 10 mg PO BEDTIME 30 days nabumetone 750 mg PO BID PRN 30 days nebulizers As directed oxycodone-acetaminophen 5-325 mg (Percocet) 1 tab PO Q4-6H PRN 7 days rosuvastatin 40 mg PO DAILY terazosin 5 mg PO BEDTIME 90 days [WHEELED WALKER As directed] HPI HPI PO LT ankle ORIF 05/11/24 NE: Details: 58-year-old gentleman returns to the office today status post left ankle ORIF 05/11/[address] Reyes. Overall he is doing well. He has some numbness and tingling along the sides of the ankle and mild discomfort. [facility] Medical History (Updated 05/02/24 @ 12:16 by Holly Vieira PA-C) Osteoarthritis of both hands Asthma-COPD overlap syndrome Personal history of colonic polyps Pre-op chest exam Left knee pain Annual physical exam Obese Pulmonary nodules Hiatal hernia Obesity (BMI 30-39.9) Benign essential hypertension Pure hypercholesterolemia Diabetes mellitus Coronary artery disease LUIS (obstructive sleep apnea) Chronic cough Degenerative disc disease Lung fibrosis Bronchial asthma Surgical History Hx of prostate biopsy History of esophagogastroduodenoscopy (EGD) Hx of colonoscopy S/P arterial stent Social History Housing: Apartment Alcohol intake: current Alcohol intake frequency: holidays/special occasions only Patient Tobacco Use Status: Never used Tobacco e-Cigarette/Vaping Use: Never Used Second Hand Smoke Exposure: No Substance Use Type: Marijuana service: No Current occupational status: disabled Cognitive needs: No Hearing needs: No Vision needs: Yes Review of Systems Const All systems reviewed & are unremarkable except as noted in HPI and below Physical Exam Extrem Other: Left ankle normal to inspection. Incision clean dry and intact. Mild swelling. Sensation intact. Office Procedures Casting/Splints [id number] Leg Cast Application Procedure code (CPT) selection complete Results Reviewed Results Reviewed: X-rays of the left ankle obtained in the office today show orthopedic hardware intact with stable fracture alignment Assessment & Plan Assessment & Plan (1) Closed left ankle fracture: Code(s): S82.892A - Other fracture of left lower leg, initial encounter for closed fracture Category: Medical Qualifiers: Encounter type: initial encounter Qualified Code(s): S82.892A - Other fracture of left lower leg, initial encounter for closed fracture Plan: Tariq will remain intact for another week. He was placed in a short-leg cast nonweightbearing. He will return in 1 week for cast off and staple removal. I explained nonweightbearing for a total of 6 weeks post surgery. Orders: Orders XR ankle LT min 3V Today M25.572 - Pain in left ankle and joints of left foot Coding Level of Care Code Global (98783) Diagnoses Closed fracture of left ankle, initial encounter S82.892A Encounter type: initial encounter CPT Codes Casting - CPT: 14207-Ljrdi Leg Cast Application ([id number])
== END 2024-05-19 14:59 | disposition home or self-care (01) ==
PROVIDERS: PCP Internal Medicine; Visit Provider Physician Assistant
DX: S82.892A Other fracture of left lower leg, initial encounter for closed fracture (principal)
CPT/HCPCS: 29405; 99024

== ENCOUNTER 2024-05-26 12:27 | Outpatient (AMB) | payer OTHER, SELFPAY ==
--- NOTE | 2024-05-26 12:42 | A.OFFVIS_ITS ---
Intake Visit Reasons: PO LT ankle ORIF 05/11/24 NE, staple removal Allergies No Known Allergies Allergy (Verified 05/19/24 14:02) HPI HPI PO LT ankle ORIF 05/11/24 NE, staple removal: Details: 58-year-old gentleman returns to the office today 2 weeks status post ORIF left ankle 05/11/[address] Reyes. He continues to do well. Remains nonweightbearing with a cast. Pain is tolerable. [facility] Medical History (Updated 05/02/24 @ 12:16 by Holly Vieira PA-C) Osteoarthritis of both hands Asthma-COPD overlap syndrome Personal history of colonic polyps Pre-op chest exam Left knee pain Annual physical exam Obese Pulmonary nodules Hiatal hernia Obesity (BMI 30-39.9) Benign essential hypertension Pure hypercholesterolemia Diabetes mellitus Coronary artery disease LUIS (obstructive sleep apnea) Chronic cough Degenerative disc disease Lung fibrosis Bronchial asthma Surgical History Hx of prostate biopsy History of esophagogastroduodenoscopy (EGD) Hx of colonoscopy S/P arterial stent Social History Housing: Apartment Alcohol intake: current Alcohol intake frequency: holidays/special occasions only Patient Tobacco Use Status: Never used Tobacco e-Cigarette/Vaping Use: Never Used Second Hand Smoke Exposure: No Substance Use Type: Marijuana service: No Current occupational status: disabled Cognitive needs: No Hearing needs: No Vision needs: Yes Review of Systems Const All systems reviewed & are unremarkable except as noted in HPI and below Physical Exam Extrem Other: Left ankle normal to inspection. Incision clean dry and intact. Mild swelling. Sensation intact. Office Procedures Casting/Splints [id number] Leg Cast Application Procedure code (CPT) selection complete Assessment & Plan Assessment & Plan (1) Closed left ankle fracture: Code(s): S82.892A - Other fracture of left lower leg, initial encounter for closed fracture Category: Medical Qualifiers: Encounter type: initial encounter Qualified Code(s): S82.892A - Other fracture of left lower leg, initial encounter for closed fracture Plan: Cobalt removed today Steri-Strips were applied patient will remain nonweightbearing he was placed in a short-leg cast today he will see us back in 4 weeks with cast off and x-rays sooner if needed. Coding Level of Care Code Global (39252) Diagnoses Closed fracture of left ankle, initial encounter S82.892A Encounter type: initial encounter CPT Codes Casting - CPT: 54318-Ked[facility] Leg Cast Application ([id number])
== END 2024-05-26 13:34 | disposition home or self-care (01) ==
PROVIDERS: Visit Provider Physician Assistant
DX: S82.892A Other fracture of left lower leg, initial encounter for closed fracture (principal)
CPT/HCPCS: 29405; 99024

== ENCOUNTER → 2024-05-26 12:27 | Outpatient (BNVA) | payer OTHER, SELFPAY | PROVIDERS: Visit Provider Physician Assistant | DX: S82.892D Other fracture of left lower leg, subsequent encounter for closed fracture with routine healing (principal); X58.XXXD Exposure to other specified factors, subsequent encounter; Z98.890 Other specified postprocedural states | CPT/HCPCS: 29405; 99212 ==

== ENCOUNTER 2024-06-27 09:51 | Outpatient (AMB) | payer OTHER, SELFPAY ==
--- NOTE | 2024-06-27 10:17 | A.OFFVIS_ITS ---
Intake Visit Reasons: PO LT ankle ORIF 05/11/24, cast off w/ XR Intake Note: Kd is a 58 year old male who presents today for a post operative LT ankle ORIF, DOS 05/11/24. Cast off and x-rays updated. Patient reports he is doing well, denies any pain. He has no concerns today. Allergies No Known Allergies Allergy (Verified 06/27/24 12:17) HPI HPI PO LT ankle ORIF 05/11/24, cast off w/ XR: Details: 58-year-old gentleman returns to the office today status post ORIF left ankle with Dr. Reyes on 05/11/2024. Patient is doing well overall he has minimal pain. [facility] Medical History (Updated 06/24/24 @ 17:08 by Grisel Deng MD) Osteoarthritis of both hands Asthma-COPD overlap syndrome Personal history of colonic polyps Pre-op chest exam Left knee pain Annual physical exam Obese Pulmonary nodules Hiatal hernia Obesity (BMI 30-39.9) Benign essential hypertension Pure hypercholesterolemia Diabetes mellitus Coronary artery disease LUIS (obstructive sleep apnea) Chronic cough Degenerative disc disease Lung fibrosis Bronchial asthma Surgical History Hx of prostate biopsy History of esophagogastroduodenoscopy (EGD) Hx of colonoscopy S/P arterial stent Social History Housing: Apartment Alcohol intake: current Alcohol intake frequency: holidays/special occasions only Patient Tobacco Use Status: Never used Tobacco e-Cigarette/Vaping Use: Never Used Second Hand Smoke Exposure: No Substance Use Type: Marijuana service: No Current occupational status: disabled Cognitive needs: No Hearing needs: No Vision needs: Yes Review of Systems Const All systems reviewed & are unremarkable except as noted in HPI and below Physical Exam Extrem Other: Left ankle incision clean dry and intact. Minimal swelling throughout the ankle. No tenderness to palpation. Neurovascularly intact. Results Reviewed Results Reviewed: X-rays of the left ankle obtained in the office today and reviewed by me show intact orthopedic hardware with interval healing. Assessment & Plan Assessment & Plan (1) Closed left ankle fracture: Code(s): S82.892A - Other fracture of left lower leg, initial encounter for closed fracture Category: Medical Qualifiers: Encounter type: initial encounter Qualified Code(s): S82.892A - Other fracture of left lower leg, initial encounter for closed fracture Plan: Patient was transitioned to a tall boot weightbearing as tolerated. He will wear the boot at all times with ambulation. Can remove the boot for hygiene and for exercises. He will sleep with the boot on. I advised against driving. He will begin physical therapy for range of motion gentle strength and propriocep tive training. He will see us back in 6 weeks with x-rays sooner if needed. Orders: Orders XR ankle LT min 3V Today M25.572 - Pain in left ankle and joints of left foot PT Evaluation and Treatment Today S82.892A - Other fracture of left lower leg, initial encounter for closed fracture Coding Level of Care Code Global (69227) Diagnoses Closed fracture of left ankle, initial encounter S82.892A Encounter type: initial encounter
== END 2024-06-27 11:06 | disposition home or self-care (01) ==
PROVIDERS: Visit Provider Physician Assistant
DX: S82.892A Other fracture of left lower leg, initial encounter for closed fracture (principal)
CPT/HCPCS: 99024

== ENCOUNTER 2024-06-27 11:19 | Emergency (ER) | payer OTHER, SELFPAY ==
--- NOTE | ~2024-06-27 | XR_ITS ---
EXAMINATION: XR RIBS, BILATERAL CLINICAL INFORMATION: b/l rib pain after lifting, productive cough COMPARISON: 04/13/2023. CT chest 02/12/2024. TECHNIQUE: 3 views of the bilateral ribs were obtained. FINDINGS: Cardiac, and mediastinal contours are normal. There are patchy perihilar interstitial infiltrates bilaterally with mild peribronchial cuffing associated, unchanged from the prior examination. This could be recurrent or more likely chronic. There is minimal blunting of the right costophrenic angle. The ribs are intact without focal lesion or fracture. No soft tissue abnormality. XR/XR ribs BI min 4V w CXR1V IMPRESSION: 1. Chronic bilateral perihilar interstitial increased opacities, similar to prior exams and likely reflecting chronic changes with underlying COPD. 2. Minimal blunting right costophrenic angle seen, most likely atelectasis. A subtle developing pneumonia cannot be excluded given the appearance. 3. No acute rib abnormality. Electronically signed by: Rush Mcgarry MD 06/27/2024 01:39 PM [facility]
[2024-06-27 12:15] VITALS: BP 135/78; PULSE 107; RESP 18; TEMP 36.6; O2SAT 96; BMI 39.1
--- NOTE | 2024-06-27 12:15 | ED.GENADULT ---
HPI - General Adult General Chief complaint: General Medical Stated complaint: diff breathing Time Seen by Provider: 06/27/24 17:54 Source: patient and family Limitations: language barrier and other (Poor historian) History of Present Illness ED Provider: Kelly Mckinney PA-C HPI narrative: 58-year-old male with a history of arthritis, COPD with pulmonary fibrosis, sleep apnea, hypertension, hyperlipidemia, diabetes, known coronary artery disease, obesity presents with right sided pain. Patient states he has been having right sided mid back and right-sided chest wall pain, over the past few days, the pain began after he had been lifting his nephew over his head. Denies cough or cold symptoms, shortness of breath, fever, nausea, vomiting. Denies neck pain, radiation of pain down either extremity, weakness of upper extremities or paresthesia. Related Data Home Medications ?Medication ?Instructions ?Recorded ?Confirmed nebulizers 07/07/23 05/19/24 Previous Rx's ?Medication ?Instructions ?Recorded blood pressure test kit-large #1 ea 10/02/21 DISPOSABLE BED PADS #60 ea 06/22/23 aspirin 81 mg tablet,delayed 81 mg PO DAILY 90 days #90 tabs 10/19/23 release rosuvastatin 40 mg tablet 40 mg PO DAILY #90 tabs 12/24/23 albuterol sulfate 2.5 mg/3 mL 2.5 mg (3 mL) inhalation BID 30 01/08/24 (0.083 %) solution for nebulization days #180 mL albuterol sulfate 90 mcg/actuation 2 puff inhalation Q6H PRN for 01/08/24 aerosol inhaler (Ventolin HFA) wheezing #18 ea fluticasone fur. 200 mcg-umeclid 1 inh inhalation DAILY 30 days #60 01/08/24 62.5 mcg-vilant 25 mcg ea inhalat.powder (Trelegy Ellipta) montelukast 10 mg tablet 10 mg PO BEDTIME 30 days #30 tabs 01/08/24 (Singulair) nabumetone 750 mg tablet 750 mg PO BID PRN joint pain and 02/10/24 low back pain 30 days #60 tabs ezetimibe 10 mg tablet 10 mg PO DAILY #90 tabs 02/26/24 amlodipine 10 mg tablet 10 mg PO DAILY 90 days #90 tabs 10/31/24 enalapril maleate 20 mg tablet 20 mg PO DAILY #90 tabs 03/03/24 WHEELED WALKER #1 ea 04/29/24 Kneeling Scooter #1 ea 05/02/24 terazosin 5 mg capsule 5 mg PO BEDTIME 90 days #90 caps 05/10/24 oxycodone-acetaminophen 5 mg-325 1 tab PO Q4-6H PRN pain (scale 05/19/24 mg tablet (Percocet) score 4-6) 7 days #42 tabs metformin 500 mg tablet 250 mg (1/2 x 500 mg) PO DAILY 30 05/22/24 days #15 tabs BEDSIDE COMMODE #1 ea 06/02/24 TRANSFER TUB BENCH #1 ea 06/02/24 methocarbamol 750 mg tablet 750 mg PO Q8H PRN pain, moderate 06/27/24 #10 tabs Allergies Allergy/AdvReac Type Severity Reaction Status Date / Time No Known Allergies Allergy Verified 06/27/24 12:17 Review of Systems Review of Systems: Yes all other systems are reviewed and are negative Constitutional: Constitutional: Denies fatigue and Denies fever(s) Cardiovascular: Cardiovascular: Reports chest pain and Denies dyspnea Respiratory: Respiratory: Denies cough and Denies dyspnea Musculoskeletal: Musculoskeletal: Reports back pain, Denies muscle weakness, Denies numbness, Denies radiating pain into limb and Denies tingling Neurologic: Denies numbness and Denies tingling Endocrine: Endocrine: Denies fatigue [facility] Past Medical History Attestation statement: The following information was validated with the patient. Medical History (Updated 06/27/24 @ 19:05 by ANTONIA Harrington) Osteoarthritis of both hands Asthma-COPD overlap syndrome Personal history of colonic polyps Pre-op chest exam Left knee pain Annual physical exam Obese Pulmonary nodules Hiatal hernia Obesity (BMI 30-39.9) Benign essential hypertension Pure hypercholesterolemia Diabetes mellitus Coronary artery disease LUIS (obstructive sleep apnea) Chronic cough Degenerative disc disease Lung fibrosis Bronchial asthma Surgical History Hx of prostate biopsy History of esophagogastroduodenoscopy (EGD) Hx of colonoscopy S/P arterial stent Social History Social History Housing: Apartment Alcohol intake: current Alcohol intake frequency: holidays/special occasions only Patient Tobacco Use Status: Never used Tobacco e-Cigarette/Vaping Use: Never Used Second Hand Smoke Exposure: No Substance Use Type: Marijuana Advance Directives: No Advance Directives Information Provided: Yes service: No Current occupational status: disabled Cognitive needs: No Hearing needs: No Vision needs: Yes Physical Exam ED Vital Signs: Vital Signs - 24 hr 06/27/24 12:15 06/27/24 15:55 Temperature 97.9 F 99.5 F Pulse Rate 107 H 92 Respiratory Rate 18 16 Blood Pressure 135/78 103/72 Pulse Oximetry 96 97 Oxygen Delivery Method Room Air Room Air BMI result Body Mass Index 39.1 Const Other: Alert well-appearing Orientation/consciousness: patient oriented x3 Chest Other: Palpable pain over entire chest wall no deformity Resp Effort & Inspection: normal respiratory effort Cardio Other: Normal peripheral perfusion Skin Other: Warm dry no rash Neuro General: patient oriented x3, gait normal, no focal motor deficits and CN's II-XI intact bilaterally Psych Other: Cooperative Course Course Course Narrative: This is a Rapid Medical Examination (RME) performed by Andrea Sanderson PA-C in triage. Full HPI, ROS, assessment and treatment plan per primary provider in the Main ED. 58 yo male hx of asthma/COPD, coronary artery disease, GERD, hypertension, diabetes, hyperlipidemia here for eval of bilateral rib pain, worse on right, and lung pain after lifting up his young niece. also reporting pain on coughing with white sputum. + no reproducible tenderness of chest wall. no overlying deformity. no crepitus. symmetric rise/fall of chest. no pain on extension of UEs. Plan: labs, imaging, viral swabs, ekg Medical Decision Making Medical Decision Making MDM Narrative: 58-year-old male with a history of arthritis, COPD with pulmonary fibrosis, sleep apnea, hypertension, hyperlipidemia, diabetes, known coronary artery disease, obesity presents with right sided pain. Patient states he has been having right sided mid back and right-sided chest wall pain, over the past few days, the pain began after he had been lifting his nephew over his head. Denies cough or cold symptoms, shortness of breath, fever, nausea, vomiting. Denies neck pain, radiation of pain down either extremity, weakness of upper extremities or paresthesia. Problem: Known vascular disease, COPD, arthritis History: Per patient and his son I have considered the following differential diagnoses: Chest wall strain, back strain, cervical radiculopathy, ACS, COPD exacerbation, pneumonia Plan: Screening labs including an EKG chest x-ray viral panel and a cardiac enzymes were obtained from triage. This is not ACS, the patient has a no mechanism of injury to account for his discomfort. He also does not have a cough or shortness of breath, his symptoms are not consistent with either pneumonia or COPD exacerbation. He is not having any radicular symptoms at this time, we will treat him for simple musculoskeletal strain. I have independently reviewed the following tests: Labs: No leukocytosis, not anemic, no electrolyte abnormality, troponin negative, viral panel negative EKG: Normal sinus rhythm, rate is 97, no ischemic changes no ectopy QTC 414 Chest x-ray: XR/XR ribs BI min 4V w CXR1V IMPRESSION: 1. Chronic bilateral perihilar interstitial increased opacities, similar to prior exams and likely reflecting chronic changes with underlying COPD. 2. Minimal blunting right costophrenic angle seen, most likely atelectasis. A subtle developing pneumonia cannot be excluded given the appearance. 3. No acute rib abnormality. Electronically signed by: Rush Mcgarry MD 06/27/2024 01:39 PM [facility] Lab Data 06/27/24 12:36 06/27/24 12:36 Labs: Lab Results 06/27/24 06/27/24 Range/Units 12:32 12:36 WBC 7.5 (4.8-10.8) X10*3/uL RBC 4.78 (4.60-5.80) X10*6/uL Hgb 14.4 (14.0-18.0) g/dl Hct 42.5 (42.0-52.0) % MCV 88.9 (80.0-98.0) fL MCH 30.1 (27.0-33.0) pg MCHC 33.9 (31.0-36.0) g/dl RDW 15.9 (11.0-16.0) % Plt Count 193 D (160-400) X10*3/uL MPV 9.5 (9.4-12.4) fL Immature Gran % (Auto) 0.3 (0.0-0.4) % Neut % (Auto) 79.0 H (45-73) % Lymph % (Auto) 9.4 L (20-40) % Stokes % (Auto) 10.9 (2-11) % Eos % (Auto) 0.3 (0-4) % Baso % (Auto) 0.1 (0-2) % Lymph # (Auto) 0.7 L (1.2-4.9) X10*3/uL Stokes # (Auto) 0.8 (0.1-1.2) X10*3/uL Eos # (Auto) 0.0 (0.0-0.4) X10*3/uL Baso # (Auto) 0.0 (0.0-0.2) X10*3/uL Abs Immat Gran (auto) 0.02 (0.00-0.03) X10*3/uL Absolute Neuts (auto) 5.9 (2.0-8.3) x10*3/uL Absolute Nucleated RBC 0.000 (0.0-0.012) X10*3/uL Nucleated RBC % (auto) 0.0 (0.0-0.2) /100WBC Sodium 139 (135-145) mmol/L Potassium 4.1 (3.3-5.1) mmol/L Chloride 107 (96-108) mmol/L Carbon Dioxide 24 (22-29) mmol/L Anion Gap 12 (12-20) BUN 10 (9-16) mg/dL Creatinine 0.73 (0.5-1.4) mg/dL Estim Creat Clear Calc 139.4 Estimated GFR > 60 Random Glucose 112 (60-115) mg/dL Calcium 8.9 (8.4-10.2) mg/dL Magnesium 2.0 (1.6-2.6) mg/dL Total Bilirubin 0.6 (0.0-1.0) mg/dL AST 20 (5-37) U/L ALT 25 (0-40) U/L Alkaline Phosphatase 69 (39-117) U/L Troponin I High Sens < 2.7 (<3.5-35.0) ng/L Total Protein 7.5 (6.5-8.0) g/dL Albumin 3.9 (3.5-5.0) g/dL Influenza Type A (PCR) NEGATIVE (Negative) Influenza Type B (PCR) NEGATIVE (Negative) RSV RNA Qual (PCR) NEGATIVE (Negative) SARS-CoV-2 RNA (RT-PCR) NEGATIVE (Negative) Discharge Plan Discharge Clinical Impression: Musculoskeletal strain Patient Disposition: Home, Self-Care Instructions: Musculoskeletal Pain (ED) Additional Instructions: All of your screening labs including a cardiac enzyme and viral panel were negative. There were no concerning changes on your EKG in the chest x-ray is at your baseline. You are being treated for musculoskeletal strain. Use [id number] ibuprofen 600 mg taken every 6 hours with food, alternated with a muscle relaxant, the methocarbamol, to be used as needed for discomfort. To note this medication will cause drowsiness, do not drive or operate machinery while taking the medication. Follow up with your primary care provider as needed. Prescriptions: New methocarbamol 750 mg tablet 750 mg PO Q8H PRN (Reason: pain, moderate) Qty: 10 0RF No Action aspirin 81 mg tablet,delayed release (DR/EC) 81 mg PO DAILY 90 Days Qty: 90 3RF rosuvastatin 40 mg tablet 40 mg PO DAILY Qty: 90 3RF ezetimibe 10 mg tablet 10 mg PO DAILY Qty: 90 3RF enalapril maleate 20 mg tablet 20 mg PO DAILY Qty: 90 1RF amlodipine 10 mg tablet 10 mg PO DAILY 90 Days Qty: 90 1RF (DME) WHEELED WALKER See Rx Instructions .Route .MEDSUPPLY Qty: 1 0RF Rx Instructions: As directed metformin 500 mg tablet 250 mg PO DAILY 30 Days Qty: 15 1RF (DME) BEDSIDE COMMODE See Rx Instructions .Route .MEDSUPPLY Qty: 1 0RF Rx Instructions: As directed (DME) TRANSFER TUB BENCH See Rx Instructions .Route .MEDSUPPLY Qty: 1 0RF Rx Instructions: As directed (DME) blood pressure test kit-large Kit See Rx Instructions .Route Qty: 1 0RF Rx Instructions: As directed (DME) DISPOSABLE BED PADS See Rx Instructions .Route .MEDSUPPLY Qty: 60 12RF Rx Instructions: As directed albuterol sulfate 2.5 mg /3 mL (0.083 %) solution for nebulization 2.5 mg inhalation BID 30 Days Qty: 180 11RF albuterol sulfate [Ventolin HFA] 90 mcg/actuation HFA aerosol inhaler 2 puff inhalation Q6H PRN (Reason: for wheezing) Qty: 18 11RF Trelegy Ellipta 200-62.5-25 mcg blister with device 1 inh inhalation DAILY 30 Days Qty: 60 12RF montelukast [Singulair] 10 mg tablet 10 mg PO BEDTIME 30 Days Qty: 30 11RF nabumetone 750 mg tablet 750 mg PO BID PRN (Reason: joint pain and low back pain) 30 Days Qty: 60 2RF Rx Instructions: Take with food (DME) Kneeling Scooter See Rx Instructions .ROUTE .MEDSUPPLY Qty: 1 0RF Rx Instructions: duration 99 days (DME) nebulizers Misc See Rx Instructions .Route Rx Instructions: As directed terazosin 5 mg capsule 5 mg PO BEDTIME 90 Days Qty: 90 1RF oxycodone-acetaminophen [Percocet] 5-325 mg tablet 1 tab PO Q4-6H PRN (Reason: pain (scale score 4-6)) 7 Days Qty: 42 0RF Rx Instructions: Partial Fill upon patient request. Print Language: Albanian
--- NOTE | 2024-06-27 12:19 | ECG_ITS ---
Test Reason : LUNG PAIN Blood Pressure : */* mmHG Vent. Rate : 97 BPM Atrial Rate : 97 BPM P-R Int : 148 ms QRS Dur : 78 ms QT Int : 326 ms P-R-T Axes : 59 36 3 degrees QTcB Int : 414 ms Normal sinus rhythm Normal ECG When compared with ECG of 19-Mar-2023 18:10, No significant change was found Referred By: Cheryl Sanderson Electronically Signed By: EMILIE GOODE
[2024-06-27 12:42] LABS: MANUAL DIFF FLAG NO
[2024-06-27 13:00] LABS: Alanine Aminotransferase 25 U/L (0-40); Albumin Level 3.9 g/dL (3.5-5.0); Alkaline Phosphatase 69 U/L (39-117); Anion Gap 12 (12-20); Aspartate Amino Transferase 20 U/L (5-37); Bilirubin Total 0.6 mg/dL (0.0-1.0); Blood Urea Nitrogen 10 mg/dL (9-16); Calcium 8.9 mg/dL (8.4-10.2); Carbon Dioxide 24 mmol/L (22-29); Chloride 107 mmol/L (96-108); Creatinine Clr Calc Pharmacy 139.4; Estimated Glomerular Filt Rate > 60; Glucose Random 112 mg/dL (60-115); Potassium 4.1 mmol/L (3.3-5.1); Sodium 139 mmol/L (135-145); Total Protein 7.5 g/dL (6.5-8.0)
[2024-06-27 13:11] LABS: Troponin-I High Sensitivity < 2.7 ng/L (<3.5-35.0)
[2024-06-27 13:23] LABS: Influenza A PCR NEGATIVE (Negative); Influenza B PCR NEGATIVE (Negative); Resp Syncy Virus RNA Qual PCR NEGATIVE (Negative); SARS COV2 PCR INHOUSE NEGATIVE (Negative)
[2024-06-27 14:23] LABS: Basophils Percent Auto 0.1 % (0-2); Eosinophils Percent Auto 0.3 % (0-4); Hematocrit 42.5 % (42.0-52.0); Hemoglobin 14.4 g/dl (14.0-18.0); Imm Gran Abs Auto 0.02 X10*3/uL (0.00-0.03); Imm Gran Pct Auto 0.3 % (0.0-0.4); Lymphocytes Absolute Auto 0.7 X10*3/uL (1.2-4.9); Lymphocytes Percent Auto 9.4 % (20-40); Mean Corpuscular HGB Conc 33.9 g/dl (31.0-36.0); Mean Corpuscular Hemoglobin 30.1 pg (27.0-33.0); Mean Corpuscular Volume 88.9 fL (80.0-98.0); Mean Platelet Volume 9.5 fL (9.4-12.4); Monocytes Absolute Auto 0.8 X10*3/uL (0.1-1.2); Monocytes Percent Auto 10.9 % (2-11); Neutrophils Absolute Auto 5.9 x10*3/uL (2.0-8.3); Platelet Count 193 X10*3/uL (160-400); Red Blood Count 4.78 X10*6/uL (4.60-5.80); Red Cell Distribution Width 15.9 % (11.0-16.0); White Blood Count 7.5 X10*3/uL (4.8-10.8)
[2024-06-27 15:55] VITALS: BP 103/72; PULSE 92; RESP 16; TEMP 37.5; O2SAT 97
[2024-06-27] MEDS: Ibuprofen 600 MG TABLET PO (19:25)
[2024-06-27] MEDS: methocarbamoL 750 MG TABLET PO (19:25)
[2024-06-27 19:29] VITALS: BP 103/72; PULSE 92; RESP 16; TEMP 37.5; O2SAT 97
== END 2024-06-27 19:30 | disposition home or self-care (01) ==
PROVIDERS: Physician Assistant Medical; Emergency Provider Emergency Medicine; PCP Physician Assistant
DX: S39.012A Strain of muscle, fascia and tendon of lower back, initial encounter (principal); R07.81 Pleurodynia; R06.02 Shortness of breath; M25.572 Pain in left ankle and joints of left foot; I25.10 Atherosclerotic heart disease of native coronary artery without angina pectoris; I10 Essential (primary) hypertension; R05.9 Cough, unspecified; X50.0XXA Overexertion from strenuous movement or load, initial encounter; Y93.9 Activity, unspecified; Y92.9 Unspecified place or not applicable; Y99.8 Other external cause status; Z03.818 Encounter for observation for suspected exposure to other biological agents ruled out; Z79.899 Other long term (current) drug therapy
CPT/HCPCS: 0241U; 36415; 71111; 73610; 80053; 83735; 84484; 85025; 93005; 99212; 99283; 99284

== ENCOUNTER → 2024-06-27 12:16 | Outpatient (BNV) | payer OTHER, SELFPAY | PROVIDERS: Visit Provider Radiology Diagnostic Radiology | DX: R07.81 Pleurodynia (principal); R05.9 Cough, unspecified; J44.9 Chronic obstructive pulmonary disease, unspecified | CPT/HCPCS: 71111; 73610 ==

== ENCOUNTER → 2024-06-27 12:19 | Outpatient (BNV) | payer OTHER, SELFPAY | PROVIDERS: Visit Provider Internal Medicine | DX: R06.09 Other forms of dyspnea (principal) | CPT/HCPCS: 93010 ==

== ENCOUNTER 2024-06-27 12:26 | Outpatient (REF) | payer OTHER, SELFPAY ==
--- NOTE | ~2024-06-27 | XR_ITS ---
EXAMINATION: XR ANKLE 3 OR MORE VIEWS LEFT HISTORY: M25.572 - Pain in left ankle and joints of left foot COMPARISON: Comparison is made with the prior examination dated 05/19/2024. FINDINGS: Three views of the left ankle are submitted. Osseous mineralization is normal. The patient is again noted to be status post internal fixation of a fracture of the distal fibula with a sideplate and multiple orthopedic screws. The hardware is intact. The fracture line is not well visualized. A button is again noted along the medial malleolus. Linear densities adjacent to the tip of the medial malleolus appear new from the prior study and may represent soft tissue calcifications. The joint spaces are preserved. The soft tissues are unremarkable. XR/XR ankle LT min 3V IMPRESSION: Internal fixation of a fracture of the distal fibula. The fracture line is not well visualized. Electronically signed by: Aram Colin MD 06/28/2024 11:12 AM [facility]
== END 2024-06-27 12:27 | disposition home or self-care (01) ==
LOC: HO.HOSX 12:26
PROVIDERS: Visit Provider Physician Assistant
DX: Z13.89 Encounter for screening for other disorder (principal)
CPT/HCPCS: 73610; 99212

== ENCOUNTER 2024-08-08 08:37 | Outpatient (REF) | payer OTHER, SELFPAY ==
--- NOTE | ~2024-08-08 | XR_ITS ---
CLINICAL HISTORY: M25.572 - Pain in left ankle and joints of left foot Three views of the left ankle. COMPARISON: XR left ankle dated 05/02/24 at 11:16 EST XR left ankle dated 04/28/24 at 17:09 EST FINDINGS: No ankle joint effusion. Calcaneal enthesophyte present. Persistent widening of the medial aspect of the ankle mortise. Anatomic alignment of internally fixated distal left fibula with fracture margins poorly visualized. Syndesmotic tight rope bridging the distal tibia and fibula present without evidence of separation. Small linear ossification present along the tip of the medial malleolus of the distal fibula possibly representing a small displaced fracture fragment, not definitively seen on prior imaging. Visualized tarsal bones appear intact. IMPRESSION: 1. Anatomic alignment of internally fixated distal left fibula without evidence of hardware complication. 2. Asymmetric widening of the ankle mortise suggestive of ligamentous injury. 3. Small bone fragment along the tip of the medial malleolus of the distal tibia, not definitively seen on prior imaging and likely representing a small avulsion injury. This document has been electronically signed by: Kem Joyce MD on 08/08/2024 17:06:54
== END 2024-08-08 08:38 | disposition home or self-care (01) ==
LOC: HO.HOSX 08:37
PROVIDERS: Visit Provider Physician Assistant
DX: M25.572 Pain in left ankle and joints of left foot (principal); S82.892A Other fracture of left lower leg, initial encounter for closed fracture; X58.XXXA Exposure to other specified factors, initial encounter; Y93.9 Activity, unspecified; Y92.9 Unspecified place or not applicable; Y99.9 Unspecified external cause status
CPT/HCPCS: 73610; 99212

== ENCOUNTER 2024-08-08 09:08 | Outpatient (AMB) | payer OTHER, SELFPAY ==
[2024-08-08 09:17] VITALS: BMI 39.1
--- NOTE | 2024-08-08 09:17 | MHC.OFFVIS ---
Vital Signs 08/08/24 09:17 Height 5 ft 9 in Weight 265 lb BMI 39.1 Intake Visit Reasons: 6wk f.u lt ankle fx ORIF w xrays Intake Note: Kd is a 58 year old male who presents today for a post operative LT ankle ORIF, DOS 05/11/24. At patient last visit he was placed in a tall walking boot and referred to physical therapy for range of motion, gentle strength and proprioceptive training. Patient reports that he is doing well, he has a ongoing tightness sensation around his ankle. States some swelling in his ankle. Allergies No Known Allergies Allergy (Verified 08/08/24 09:36) Medication List - Last Reconciled 08/08/24 by Holly Vieira PA-C albuterol sulfate 90 mcg/actuation (Ventolin HFA) 2 puffs inhalation Q6H PRN albuterol sulfate 2.5 mg (3 mL) inhalation BID 30 days amlodipine 10 mg PO DAILY 90 days aspirin 81 mg PO DAILY 90 days [BEDSIDE COMMODE As directed] blood pressure test kit-large As directed [DISPOSABLE BED PADS As directed] enalapril maleate 20 mg PO DAILY ezetimibe 10 mg PO DAILY ztgnczodxfl-laoopkljr-prphdwla 200-62.5-25 mcg (Trelegy Ellipta) 1 inh inhalation DAILY 30 days [Kneeling Scooter duration 99 days] metformin 250 mg (1/2 x 500 mg) PO DAILY 30 days methocarbamol 750 mg PO Q8H PRN montelukast (Singulair) 10 mg PO BEDTIME 30 days nabumetone 750 mg PO BID PRN 30 days nebulizers As directed rosuvastatin 40 mg PO DAILY terazosin 5 mg PO BEDTIME 90 days [TRANSFER TUB BENCH As directed] [WHEELED WALKER As directed] HPI HPI 6wk f.u lt ankle fx ORIF w xrays: Details: The patient is a 59-year-old male presenting status post ORIF left ankle 05/11/[address] Reyes. He has been using a boot since the previous visit. He has progressed well in physical therapy and continues exercises at home. He experiences tightness in the posterior ankle, and discomfort with activity, which is somewhat alleviated by elevation. [facility] Medical History (Updated 06/28/24 @ 00:02 by Background Daemon) Osteoarthritis of both hands Asthma-COPD overlap syndrome Personal history of colonic polyps Pre-op chest exam Left knee pain Annual physical exam Obese Pulmonary nodules Hiatal hernia Obesity (BMI 30-39.9) Benign essential hypertension Pure hypercholesterolemia Diabetes mellitus Coronary artery disease LUIS (obstructive sleep apnea) Chronic cough Degenerative disc disease Lung fibrosis Bronchial asthma Surgical History Hx of prostate biopsy History of esophagogastroduodenoscopy (EGD) Hx of colonoscopy S/P arterial stent Social History Housing: Apartment Alcohol intake: current Alcohol intake frequency: holidays/special occasions only Patient Tobacco Use Status: Never used Tobacco e-Cigarette/Vaping Use: Never Used Second Hand Smoke Exposure: No Substance Use Type: Marijuana service: No Current occupational status: disabled Cognitive needs: No Hearing needs: No Vision needs: Yes Review of Systems Const All systems reviewed & are unremarkable except as noted in HPI and below Physical Exam Vital Signs: BMI result Body Mass Index 39.1 Extrem Other: Left ankle incision well healed. Minimal swelling throughout the ankle. No tenderness to palpation. Full range of motion. Neurovascularly intact. Results Reviewed Results Reviewed: X-rays of the left ankle obtained in the office today and reviewed by me show intact orthopedic hardware with interval healing. Assessment & Plan Assessment & Plan (1) Closed left ankle fracture: Code(s): S82.892A - Other fracture of left lower leg, initial encounter for closed fracture Category: Medical Qualifiers: Encounter type: initial encounter Qualified Code(s): S82.892A - Other fracture of left lower leg, initial encounter for closed fracture Plan: He will transition plan from the boot to a lace-up ankle brace to promote improved mobility and comfort. I explained that some discomfort and swelling may occur as the tissue adjusts to increased activity, advising the use of ice and elevation. The importance of continued exercises at home and therapy for strengthening and motion was emphasized. Follow-up visits are recommended only if new concerns surface, given the good bone healing noted. The details of this plan and its rationale, along with a reminder to adhere to exercises and care routines, were thoroughly communicated to the patient. Orders: Orders XR ankle LT min 3V Today M25.572 - Pain in left ankle and joints of left foot PT Evaluation and Treatment Today S82.892A - Other fracture of left lower leg, initial encounter for closed fracture Coding Level of Care Code Est Pt Level 3 (19436) Complex EM visit Add On G2211 Diagnoses Closed fracture of left ankle, initial encounter S82.493G Encounter type: initial encounter
--- OUTSIDE RECORDS SUMMARY | 2024-08-08 10:08 | XMS_ITS | Data Portability ---
Author Organization [employer] [facility] [employer] Address [address] [place] [phone] Care Team Providers Care Beater Engineer Helper Name Role Phone HIM CCA OTHER Assessment Encounter Date Assessment Date Assessment LastModified by Organization Details LastModified Time 07/01/2024 07/01/2024 I provided real -time medical direction via phone for this encounter and was available for additional phone-based assistance as needed. I have reviewed and agree with the Assessment and Plan as documented by the Benefits Manager. Patient given the opportunity to ask questions. Our service contacted for an assessment of: Dry scaling skin with blisters As per above, patient with recent cast and removal. Patient had the cast placed after he had a fracture related to a fall. The patient has very dry skin and is also in a boot which is causing friction at certain places upon ambulation. The patient is weight-bearing as tolerated. Patient's family has been giving baths and trying to keep Eucerin or Aquaphor lotion on. They call with concerns for the blisters that have developed at pressure points with a cast. They state the patient has had no fever or chills. Per extrusion die repair manager on the scene, vital signs stable patient is afebrile. Please see upload pictures. Impression and plan: Very dry scan after cast removal. Several areas with blisters but no evidence of infection. The blisters do appear to be traumatic in nature. Advise to keep the skin as well hydrated as possible including excessive use of moisturizers. Additionally to push p.o. intake. Red flags discussed. Patient may benefit from ongoing wound care as a 1 time assessment. Will follow up and leave note for team. Allergies: Reviewed PCP f/u: We discussed the diagnostic uncertainty of home visits and the risk associated with this. In this case, the patient and I felt this to be an acceptable and reasonable amount of risk given the benefit of avoiding an ED visit. We discussed the need to seek care urgently/emergentl y in the setting of any new or worsening serious symptoms, particularly fever chills lightheadedness altered mental status [email or web address] Not available 07/01/2024 20:54:21 Plan of Treatment Reminders Order Date Submit Date Provider Last Modified By Organization Details Last Modified Time Details Appointments None record ed. Lab None record ed. Referral None record ed. Procedures None record ed. Surgeries None record ed. Imaging None record ed. Medication Orders None record ed. Patient TargetsNo targets recorded. Patient InstructionsNo instructions recorded. Reason for Referral None Reported. Medical Equipment None Reported. Allergies No known drug allergies Medications Name Sig Start Date Stop Date Status Note LastModified by Organization Details LastModified Time terazosin 5 mg capsule TAKE 1 CAPSULE BY MOUTH AT BEDTIME active Not Available Not Available No t Available metformin 500 mg tablet TAKE 1/2 TABLET BY MOUTH EVERY DAY active Not Available Not Available No t Available prednisone 10 mg tablet TAKE 2 TABS DAILY X 5 DAYS, THEN 1 TAB DAILY X 5 DAYS active Not Available Not Available No t Available doxycycline hyclate 100 mg capsule TAKE 1 CAPSULE BY MOUTH TWICE A DAY FOR 10 DAYS active Not Available Not Available No t Available nabumetone 750 mg tablet PLEASE SEE ATTACHED FOR DETAILED DIRECTIONS active Not Available Not Available N ot Available albuterol sulfate 2.5 mg/3 mL (0.083 %) solution for nebulization INHALE 1 VIAL (3 ML) BY MOUTH 2 TIMES A DAY active Not Available Not Available Not Available enalapril maleate 20 mg tablet TAKE 1 TABLET BY MOUTH EVERY DAY active Not Available Not Available No t Available aspirin 81 mg tablet,delay ed release TAKE 1 TABLET BY MOUTH EVERY DAY active Not Available Not Available No t Available tramadol 50 mg tablet TAKE 1 TABLET BY MOUTH 1 TO 2 TIMES A DAY NEEDED FOR SEVERE PAIN active Not Available Not Available Not Available oxycodone-ac etaminophen 5 mg-325 mg tablet TAKE 1 TABLET BY MOUTH EVERY 4 TO 6 HOURS NEEDED FOR PAIN SCALE 4-6 FOR 7 DAYS active Not Available Not Available No t Available methocarbamo l 750 mg tablet active Not Available Not Available Not Available tamsulosin 0.4 mg capsule TAKE 1 CAPSULE BY MOUTH EVERY DAY BEDTIME FOR 90 DAYS active Not Available Not Available Not Available amlodipine 10 mg tablet TAKE 1 TABLET BY MOUTH EVERY DAY FOR 90 DAYS active Not Available Not Available No t Available gabapentin 300 mg capsule TAKE 1 CAPSULE BY MOUTH EVERYDAY AT BEDTIME active Not Available Not Available No t Available montelukast 10 mg tablet TAKE 1 TABLET BY MOUTH AT BEDTIME active Not Available Not Available No t Available albuterol sulfate HFA 90 mcg/actuatio n aerosol inhaler 2 PUFF INHALED EVERY 6 HOURS NEEDED FOR FOR WHEEZING active Not Available Not Available No t Available finasteride 5 mg tablet TAKE 1 TABLET BY MOUTH EVERY DAY active Not Available Not Available No t Available Laxative (bisacodyl) 5 mg tablet,delay ed release PLEASE SEE ATTACHED FOR DETAILED DIRECTIONS active Not Available Not Available N ot Available ezetimibe 10 mg tablet TAKE 1 TABLET BY MOUTH DAILY active Not Available Not Available Not Available rosuvastatin 40 mg tablet TAKE 1 TABLET BY MOUTH EVERY DAY active Not Available Not Available No t Available Purelax 17 gram/dose oral powder PLEASE SEE ATTACHED FOR DETAILED DIRECTIONS active Not Available Not Available N ot Available Trelegy Ellipta 200 mcg-62.5 mcg-25 mcg powder for inhalation INHALE 1 PUFF INTO THE LUNGS EVERY DAY active Not Available Not Available No t Available Vitals Date Recorded Oxygen saturation Oxygen saturation in Arterial blood by Pulse oximetry Respiratory rate Body weight Body temperature Heart rate Body height Systolic blood pressure Diastolic blood pressure Provider Name and Address Organization Details Last Updated DateTime 96 % 96 % 14 /min 775055. 8 g 98.9 [degF] 91 /min 177.8 cm 136 mm[Hg] 81 mm[Hg] Not Available [facility] - production 20:44:55 Social History None recorded. Functional Status None recorded. Mental Status None recorded. Family History Nothing Reported. Medical History No medical history recorded. Past Encounters Encounter ID Performer Location Encounter Start Date Encounter Closed Date Diagnosis/Indication Diagnosis SNOMED-CT Code Diagnosis ICD10 Code Diagnosis Note [id number] Viola Martinez MD [facility] [address] [place] [phone] 07/01/2024 20:34:27 07/02/2024 19:21:24 Wound of skin 799906879 T14.8XXA Health Concerns Section Related Observation LastModified by Organization Detai ls LastModified Time None Recorded Concern Status LastModified by Organization Details LastModified Time None Recorded Advance Directives Directive None Recorded Payers Encounter Date Sequence Insurance Name Policy Number Policy Nelson Covered Member ID Nelson Member ID Guarantor Name 07/01/2024 1 [facility] - DOS ON OR AFTER 2022 - DUAL ELIGIBLE - CUSTODIAL OPTIONS AND ONE CARE (MEDICARE REPLACEMENT/ADV ANTAGE - HMO) Kd Rajan [id number] Kd Rajan Notes Date Note Type Note Provider Name and Address Organization Details Recorded Time 07/01/2024 text/html HPI: Member's Rina calling into [facility], she reports member had cast removed from left ankle after having surgery post fracture. Approximately 3 days ago, member developed fluid fills blisters surrounding surgery site. No swelling, no drainage, fever or pain. Member wears a boot when ambulating. called orthopedic surgeon, but the surgeon has left the office for the day. ..................... ..................... ..................... ..................... ..................... ..................... ............... [facility] Nurse Triage Notes (Camila Turcios): Denies: Garza ? Flash, circumferential garza Garza reported with black tissue to the area Open skin area after a fall with uncontrolled bleeding Abscess/infection with streaking noted, presence of fever or without Chief Complaints: Wound Care PMH: Coronary Artery Disease, Diabetes Mellitus Type 2, Cancer, Asthma PMH Reviewed at 07/01/2024 - 16:34 Allergies Reviewed at 07/01/2024 - 16:34 Comments: [facility] RN did not require any additional information to process this visit. ..................... ..................... ..................... ..................... ..................... ..................... ............... Benefits Manager Note From Daniel Millan: [facility] makes pt contact a 59 yo M W/ CC of blisters around a surgery site after removal of a cast. [facility] obtains consent and uploads electronically. [facility] obtains vital signs and pictures of area of question, pictures sent to [facility] via [employer]. PT explains that pt Fx tibia and ankle shifted position while in [place]. When pt returned to [place] and was reevaluated surgery was performed to place screws and a plate. PT was in full cast for 8 weeks. Cast was removed this past thursday and one blister on the right side of ankle appeared, then overnight four more appeared on the left side of the ankle. PT does have very dry skin where cast was. PT has no other complaints. PT wears a boot when walking to help support the injured area. [facility] contacts [facility] and explains above mentioned. [facility] recommends pt heavily moisturize the dry skin to prevent further blisters, PT is advised to reduce any type of trauma to the leg such as the boot or socks. [facility] advises blisters will pop on their own but Dr will reach out to wound care to try and get them out there to manage the wounds for the time being. PT is advised to look out for infection such as cellulitis, redness, or any signs of fever. PT and understand. [facility] clears. ..................... ..................... ..................... ..................... ..................... ..................... ............... [facility] Consulted: Viola Martinez ..................... ..................... ..................... ..................... ..................... ..................... ............... Disposition: Fulfilled Viola Martinez MD [address] [facility],[address], [place], [phone], KIP MARCUS 07/02/2024 08:02:17
== END 2024-08-08 10:00 | disposition home or self-care (01) ==
LOC: HO.HOS 09:08
PROVIDERS: Visit Provider Physician Assistant
DX: S82.892A Other fracture of left lower leg, initial encounter for closed fracture (principal)
CPT/HCPCS: 99024

== ENCOUNTER → 2024-08-08 09:19 | Outpatient (BNV) | payer OTHER, SELFPAY | PROVIDERS: Visit Provider Radiology Diagnostic Radiology | DX: M25.572 Pain in left ankle and joints of left foot (principal) | CPT/HCPCS: 73610 ==

== ENCOUNTER 2024-09-05 11:03 | Outpatient (REF) | payer OTHER, SELFPAY ==
[2024-09-05 11:32] LABS: MANUAL DIFF FLAG NO
[2024-09-05 11:49] LABS: Basophils Percent Auto 0.4 % (0-2); Eosinophils Absolute Auto 0.1 X10*3/uL (0.0-0.4); Eosinophils Percent Auto 2.6 % (0-4); Hematocrit 41.4 % (42.0-52.0); Lymphocytes Absolute Auto 0.8 X10*3/uL (1.2-4.9); Lymphocytes Percent Auto 27.7 % (20-40); Mean Corpuscular HGB Conc 33.8 g/dl (31.0-36.0); Mean Corpuscular Hemoglobin 29.7 pg (27.0-33.0); Mean Corpuscular Volume 87.9 fL (80.0-98.0); Mean Platelet Volume 9.8 fL (9.4-12.4); Monocytes Absolute Auto 0.5 X10*3/uL (0.1-1.2); Monocytes Percent Auto 17.3 % (2-11); Neutrophils Absolute Auto 1.4 x10*3/uL (2.0-8.3); Platelet Count 220 X10*3/uL (160-400); Red Blood Count 4.71 X10*6/uL (4.60-5.80); Red Cell Distribution Width 17.2 % (11.0-16.0); White Blood Count 2.7 X10*3/uL (4.8-10.8)
[2024-09-05 12:04] LABS: Estimated Average Glucose 128 mg/dL; Hemoglobin A1C 157.3876 umol/L; Hemoglobin A1c % 6.1 % (<6.0)
[2024-09-05 12:42] LABS: Appearance Urine Clear; Color Urine Yellow; Glucose Urine UA Negative (Negative); Leukocyte Esterase Urine Negative (Negative); Nitrite Urine Negative (Negative); PH 5.5 (5.0-9.0); Urine Blood Negative (Negative); Urine Ketones Trace mg/dL (Negative); Urine Protein Negative (Neg-Trace)
[2024-09-05 12:43] LABS: HDL Cholesterol 63 mg/dL (>40)
[2024-09-05 12:44] LABS: Alanine Aminotransferase 33 U/L (0-40); Albumin Level 4.1 g/dL (3.5-5.0); Alkaline Phosphatase 70 U/L (39-117); Anion Gap 12 (12-20); Aspartate Amino Transferase 30 U/L (5-37); Bilirubin Total 0.6 mg/dL (0.0-1.0); Blood Urea Nitrogen 12 mg/dL (9-16); Calcium 8.7 mg/dL (8.4-10.2); Carbon Dioxide 26 mmol/L (22-29); Chloride 107 mmol/L (96-108); Cholesterol 136 mg/dL (<200); Estimated Glomerular Filt Rate > 60; Glucose Fasting 115 mg/dL (60-99); HDL Cholesterol 61 mg/dL (>40); LDL Cholesterol Calculated 64 mg/dL (<100); LDL Cholesterol Calculated 67 mg/dL (<100); Potassium 3.8 mmol/L (3.3-5.1); Prostate Specific Antigen < 0.10 ng/mL (<0.05-4.0); Sodium 141 mmol/L (135-145); Total Protein 7.2 g/dL (6.5-8.0); Triglycerides 43 mg/dL (<150); Triglycerides 45 mg/dL (<150); Vitamin D 25-OH Total 17.1 ng/mL (>30)
--- OUTSIDE RECORDS SUMMARY | 2024-09-05 12:50 | XMS_ITS | Data Portability ---
Author Organization [employer] [place] [employer] Address [address] [place] [phone] Care Team Providers Care Leather Production Artisan Name Role Phone HIM CCA OTHER SO SIMS Primary Care Provider [phone] Assessment Encounter Date Assessment Date Assessment LastModified by Organization Details LastModified Time 07/01/2024 07/01/2024 I provided real -time medical direction via phone for this encounter and was available for additional phone-based assistance as needed. I have reviewed and agree with the Assessment and Plan as documented by the Condenser Operator. Patient given the opportunity to ask questions. [...] has had no fever or chills. Per waste chopper on the scene, vital signs stable patient [...] and Address Organization Details Last Updated DateTime 5 96 % 96 % 14 /min 655890. 8 g 98.9 [degF] 91 /min 177.8 cm 136 mm[Hg] 81 mm[Hg] Not Available [employer] production 5 20:44:55 Date Recorded Respiratory rate Heart rate Body temperature Oxygen saturation Oxygen saturation in Arterial blood by Pulse oximetry Systolic blood pressure Diastolic blood pressure Provider Name and Address Organization Details Last Updated DateTime 5 16 /min 88 /min 98 [degF] 95 % 95 % 154 mm[Hg] 82 mm[Hg] Not Available [employer] production 5 17:42:57 Social History None recorded. Functional Status None recorded. Mental Status None recorded. Family History Nothing Reported. Medical History No medical history recorded. Past Encounters Encounter ID Performer Location Encounter Start Date Encounter Closed Date Diagnosis/Indication Diagnosis SNOMED-CT Code Diagnosis ICD10 Code Diagnosis Note [id number] Viola Martinez MD [facility] [address] [place] [phone] 07/01/2024 20:34:27 07/02/2024 19:21:24 Wound of skin 077997974 T14.8XXA [id number] Bianca Nixon MD [facility] - [facility] [address] [place] [phone] 08/10/2024 17:42:53 08/10/2024 19:31:10 Tooth disorder [id number] K08.9 59 year old male with poor dentition, being evaluated for tooth pain for a week while eating. Patient reports being unable to see a dentist. Feels pressure inside his mouth, has not taken anything for the pain yet. Patient denies fever/chil ls. Exam notable for normal vital signs, back molar partway out of the gum, without signs of gum erythema or drainage. Presentati on consistent with chronicall y poor dentition, with tooth decay leading to partial tooth extraction . No evidence of odontogeni c infection today, recommend FU with PCP for oral surgeon referral to perform tooth extraction . I have reviewed and agree with the assessment and plan as documented by the waste chopper. I provided real-time medical direction for this encounter and was immediatel y available to provide additional phone-base d assistance as needed. We discussed the diagnostic uncertaint y of home visits and associated risks. We discussed the need to seek care urgently/e mergently in the setting of any new or worsening symptoms. Health Concerns Section Related Observation LastModified by Organization Detai ls LastModified Time None Recorded Concern Status LastModified by Organization Details LastModified Time None Recorded Advance Directives Directive None Recorded Payers Encounter Date Sequence Insurance Name Policy Number Policy Nelson Covered Member ID Nelson Member ID Guarantor Name 07/01/2024 1 [facility] - DOS ON OR AFTER 2022 - DUAL ELIGIBLE - ASSISTED OPTIONS AND ONE CARE (MEDICARE REPLACEMENT/ADV ANTAGE - HMO) Kd Rajan [id number] Kd Rajan 08/10/2024 1 [facility] - DOS ON OR AFTER 2022 - DUAL ELIGIBLE - ASSISTED OPTIONS AND ONE CARE (MEDICARE REPLACEMENT/ADV ANTAGE - HMO) Kd Rajan [id number] Kd Rajan Notes Date Note Type Note [...] 07/01/2024 - 16:34 Allergies Reviewed at 07/01/2024 16:34 Comments: CRC RN did not require any additional information to process this visit. ..................... ..................... ..................... ..................... ..................... ..................... ............... Condenser Operator Note From Daniel Millan: [facility] makes pt contact a 59 yo M W/ CC of blisters around a surgery site after removal of a cast. [facility] obtains consent and uploads electronically. [facility] obtains vital signs and pictures of area of question, pictures sent to [facility] via [employer] karely. PT explains that pt Fx tibia and ankle shifted position while in [place]. When pt returned to [place] and was reevaluated surgery was performed to [...] walking to help support the injured area. [facility] contacts [facility] and explains above mentioned. [facility] recommends pt heavily moisturize the dry skin to prevent further blisters, PT is advised to reduce any type of trauma to the leg such as the boot or socks. [facility] advises blisters will pop on their own but Dr will reach out to wound care to try and get them out there to manage the wounds for the time being. PT is advised to look out for infection such as cellulitis, redness, or any signs of fever. PT and understand. [facility] clears. ..................... ..................... ..................... ..................... ..................... ..................... ............... [facility] Consulted: Viola Martinez ..................... ..................... ..................... ..................... ..................... ..................... ............... Disposition: Fulfilled Viola Matrinez MD [address] [facility],[address], [place], [phone], [employer] 07/02/2024 08:02:17 08/10/2024 text/html CRC Nurse Triage Notes (Prudence Tao): Reason For Request: Pt experiencing tooth pain on upper right side of mouth Patient Reports: Dental pain and fever, able to maintain secretions Denies: Sudden onset of dental pain, unable to manage own secretions Nosebleed lasting longer than one hour; unable to stop bleeding Throat swelling/difficult swallowing Sinus infection Conjunctivitis External Ear concerns Chief Complaints: Dental Complaint PMH: Coronary Artery Disease, Diabetes Mellitus Type 2, Cancer, Asthma PMH Reviewed at 08/10/2024:33 Allergies Reviewed at 08/10/2024:33 Comments: 59 y.o male complains of Dental Complaint PT has had dental pain for 2 days with mild swelling. He denies any swallowing or talking. Pain is upper right side of mouth. he is able to eat as long as he does not chew on that side. He denies any fever/ chills. They have been unable to get into a dentist and was told to go to the ER. PMH > prostate cancer, he just finished radiation this year. I provided information on the mobile health provider response time and advised the patient and/or caregiver to monitor reported signs and symptoms. I discussed the warning signs of when to seek emergency care. ..................... ..................... ..................... ..................... ..................... ..................... ............... Condenser Operator Note From Isaac Oropeza: Encountered patient conscious alert and ambulatory with family present. Patient reports approximately one week of right molar pain exacerbated while he? s eating. Patient denies any bleeding or discharge from the pain site. Patient denies priority symptoms, including chest pain, shortness of breath, and acute changes in vision. Skin warm, dry and of appropriate color for ethnicity. Head and neck free of trauma edema.-JVD. Breath sounds present clear and equal bilaterally. Abdomen soft non-tender and non-distended. Extremities free of trauma and edema; left foot in brace due to prior injury unrelated to this visit. Upon oropharynx exam, it was noted that patient has a tooth on his right maxilla near his molar, that appears to be detached from the gum. Patient verbalizes that he was not aware that he had a tooth dislodge from the gum. [facility] contacted: states patient would most benefit from seeing his primary care doctor in order to receive a referral for an oral surgeon in order to have his teeth extracted. Patient expresses understanding and states he will call his primary care physician in order to schedule an appointment. 1g of PO Tylenol administered for patient? s pain. Patient encouraged to seek further medical attention, including 911 if the symptoms are to worsen or favor to develop chest pain and shortness of breath or changes and vision. Patient verbalizes understanding and is comfortable with remaining at home at this time. ..................... ..................... ..................... ..................... ..................... ..................... ............... [facility] Consulted: Bianca Nixon ..................... ..................... ..................... ..................... ..................... ..................... ............... Disposition: Fulfilled Bianca Nixon MD [address] [facility],[address], [place], [phone], KIP MARCUS 08/10/2024 17:51:36
[2024-09-05 12:58] LABS: Creatinine Urine 240.09 mg/dL; Microalbum/Creatinine Ratio Ur 12.4 ug/mg cr (<30)
[2024-09-08 17:14] LABS: Testosterone, Total 243 ng/dL (250-1100)
== END 2024-09-05 11:04 | disposition home or self-care (01) ==
LOC: HO.LAB 11:03
PROVIDERS: Internal Medicine Cardiovascular Disease; Absent Provider Urology; PCP Internal Medicine; Visit Provider Internal Medicine
DX: E78.00 Pure hypercholesterolemia, unspecified (principal); E11.9 Type 2 diabetes mellitus without complications; E55.9 Vitamin D deficiency, unspecified; R30.0 Dysuria; D64.9 Anemia, unspecified; C61 Malignant neoplasm of prostate; I25.10 Atherosclerotic heart disease of native coronary artery without angina pectoris; Z12.5 Encounter for screening for malignant neoplasm of prostate
CPT/HCPCS: 36415; 80053; 80061; 81003; 82043; 82306; 82570; 83036; 84153; 84403; 85025

== ENCOUNTER 2024-09-09 11:07 | Outpatient (AMB) | payer OTHER, SELFPAY ==
--- NOTE | 2024-09-09 11:12 | A.OFFVIS_ITS ---
Intake Visit Reasons: 4m/labs(pending) Intake Note: Patient is present for 4 month follow up/LABS Urology Medication:Terazosin Antibiotic Allergy:NONE Blood Thinner:ASPIRIN Broadcast Maintenance Technician Required: No Allergies No Known Allergies Allergy (Verified 09/09/24 11:17) HPI Comments Details: Kd is a pleasant male. He is a patient Dr. Raza. He is seen for following urologic conditions - prostate cancer - lower urinary tract symptoms speaks Chadian, he speaks Bengali Minimal issues Feeling improvement of energy Completed external beam radiation April 2023 Continue interval surveillance every 6 months for 5 years Improving testosterone PSA 08/25 <0.1, 12/25 <0.1, 04/26 PSA <0.1 T 165, 09/25 <0.1 T 250 12/25 Has had some urgency and frequency with hot flashes Medications include terazosin, finasteride and gabapentin Stop finasteride, improved hot flashes Prostate Cancer: 08/24 High volume Grade Group 3 - GnRH 11/23 - [facility] with EXBRT plus GnRH Apr [address] [facility] [address]. Kennedy - 12 months GnRH Diagnosed by Dr. Lynn, PSA 8.8 free PSA 5% Biopsy pT1c Ramsey score: 4+3=7 (left apex medial, right base medial), 3+4=7 (left mid medial, right base lateral and medial, right mid lateral and medial, right apex medial), 3+3= 6 (left base lateral, left mid lateral, left apex lateral, right apex lateral) Number cores positive: 12 Total number of cores: 12 % of tissue involved: 30% of all tissue examined Periprostatic fat inv.: Not identified Seminal vesicle inv.: Not identified Perineural inv.: Present, multifocal LVI: Not identified Staging - 10/24 PET-CT no giovanny disease - 12/24 prostate MRI anterior 1.2 cm lesion, 30 g prostate, no evidence of extracapsular extension Lower urinary tract symptoms with elevated PSA Prior evaluation in [place] Did not continue evaluation secondary to COVID Referred for elevated PSA 02/22 15 Nocturia x3 No prior prostate medications DANA 2+ firm Suggest bladder ultrasound, finasteride, terazosin 5 mg and follow-up cystoscopy [facility] Medical History Osteoarthritis of both hands Asthma-COPD overlap syndrome Personal history of colonic polyps Pre-op chest exam Left knee pain Annual physical exam Obese Pulmonary nodules Hiatal hernia Obesity (BMI 30-39.9) Benign essential hypertension Pure hypercholesterolemia Diabetes mellitus Coronary artery disease LUIS (obstructive sleep apnea) Chronic cough Degenerative disc disease Lung fibrosis Bronchial asthma Surgical History Hx of prostate biopsy History of esophagogastroduodenoscopy (EGD) Hx of colonoscopy S/P arterial stent Social History Housing: Apartment Alcohol intake: current Alcohol intake frequency: holidays/special occasions only Patient Tobacco Use Status: Never used Tobacco e-Cigarette/Vaping Use: Never Used Second Hand Smoke Exposure: No Substance Use Type: Marijuana service: No Current occupational status: disabled Cognitive needs: No Hearing needs: No Vision needs: Yes Review of Systems Const Denies chills and Denies fever(s) Card Reports no additional complaints and Denies syncope Resp Denies cough GI Denies abdominal pain and Denies heartburn Reports as per HPI and Denies change in libido Neuro Denies syncope Psych Denies change in libido Endo Denies change in libido Physical Exam Const General: cooperative, healthy appearing, comfortable and no acute distress Orientation/consciousness: patient oriented x3 HEENT Face and sinus: Yes normal facial exam Mouth: moist mucous membranes Neck Neck: Yes normal visual inspection, Yes full ROM and Yes trachea midline Chest Chest palpation & inspection: normal inspection of the chest Resp Effort & Inspection: normal respiratory effort, able to speak in complete sentences and no respiratory distress GI Inspection: Yes normal to inspection Back/Spine/Pelvis Cervical Spine: normal cervical lordosis Thoracic/Lumbar Spine: thoracic and lumbar spine normal to inspection Skin General skin exam: no rashes or lesions noted Neuro General: patient oriented x3, gait normal, tone normal and moves all extremities Extrem General: Yes normal to inspection and Yes capillary refill normal Assessment & Plan Assessment & Plan (1) Prostate cancer: Comment: 08/24 high volume grade group 3 Code(s): C61 - Malignant neoplasm of prostate Category: Medical (2) Urinary incontinence: Code(s): R32 - Unspecified urinary incontinence Category: Medical Plan Six-month follow-up lab work Orders: Orders Prostate Specific Antigen 6 Months C61 - Malignant neoplasm of prostate Testosterone, Total 6 Months C61 - Malignant neoplasm of prostate Patient Instructions: This note is constructed using voice recognition software. While every effort has been made to ensure accuracy didactic instructor errors may have been included. Imaging studies, laboratory and physical exam results were discussed and reviewed in detail. No major barriers to patient understanding were identified. An opportunity to ask questions regarding the treatment plan was provided. All questions were answered. The patient expressed understanding and agreement with the above treatment plan. The patient is aware they should contact our office by phone for worsening of their current condition or the appearance of new urologic symptoms. Compliance is encouraged with any medications and followup testing that is ordered. It is a privilege to participate in the urologic care of your patient. If you have any questions or concerns regarding treatment for the above conditions, or other urologic issues, please do not hesitate to contact me. The office tele phone contact is [phone]. Sincerely, Dr Inocencio Lynn MD, [facility] - Urology Compassionate Specialist Care for the Genitourinary System Coding Level of Care Code Est Pt Level 3 (08200) Complex EM visit Add On G2211 Diagnoses Prostate cancer C61 Urinary incontinence R32
--- OUTSIDE RECORDS SUMMARY | 2024-09-09 11:36 | XMS_ITS | Data Portability ---
Author Organization [employer] [place] [employer] Address [address] [place] [phone] Care Team Providers Care Recycling Crew Supervisor Name Role Phone HIM CCA OTHER SO SIMS Primary Care Provider [phone] Assessment Encounter Date Assessment Date Assessment LastModified by Organization Details LastModified Time 07/01/2024 07/01/2024 I provided real -time medical direction via phone for this encounter and was available for additional phone-based assistance as needed. I have reviewed and agree with the Assessment and Plan as documented by the Lot Boss. Patient given the opportunity to ask questions. [...] has had no fever or chills. Per visual merchandise manager on the scene, vital signs stable [...] 5 96 % 96 % 14 /min 438689. 8 g 98.9 [degF] 91 /min 177.8 cm 136 mm[Hg] 81 mm[Hg] Not Available [employer] - production 5 20:44:55 Date Recorded Respiratory rate Heart rate Body temperature Oxygen saturation Oxygen saturation in Arterial blood by Pulse oximetry Systolic blood pressure Diastolic blood pressure Provider Name and Address Organization Details Last Updated DateTime 5 16 /min 88 /min 98 [degF] 95 % 95 % 154 mm[Hg] 82 mm[Hg] Not Available [employer] - production 5 17:42:57 Social History None recorded. Functional Status None recorded. Mental Status None recorded. Family History Nothing Reported. Medical History No medical history recorded. Past Encounters Encounter ID Performer Location Encounter Start Date Encounter Closed Date Diagnosis/Indication Diagnosis SNOMED-CT Code Diagnosis ICD10 Code Diagnosis Note [id number] Viola Martinez MD Main - [facility] [address] [place] [phone] 07/01/2024 20:34:27 07/02/2024 19:21:24 Wound of skin [id number] T14.8XXA [id number] Bianca Nixon MD [facility] - [facility] [address] [place] [address] 08/10/2024 17:42:53 08/10/2024 19:31:10 Tooth disorder [id number] K08.9 59 year old male with poor [...] assessment and plan as documented by the visual merchandise manager. I provided real-time medical direction for this [...] Recorded Advance Directives Directive None Recorded Payers Insurance Date Sequence Insurance Name Policy Number Policy Nelson Covered Member ID Nelson Member ID Guarantor Name 08/10/2024 1 [facility] - DOS ON OR AFTER 2022 - DUAL ELIGIBLE - HALF-WAY OPTIONS AND ONE CARE (MEDICARE REPLACEMENT/ADV ANTAGE - HMO) Kd Rajan [id number] Kd Rajan Notes Date Note Type Note [...] 2, Cancer, Asthma PMH Reviewed at 07/01/2024 16:34 Allergies Reviewed at 07/01/2024 16:34 Comments: CRC RN did not require any additional information to process this visit. ..................... ..................... ..................... ..................... ..................... ..................... ............... Lot Boss Note From Daniel Millan: [facility] makes pt contact a 59 yo M W/ CC of blisters around a surgery site after removal of a cast. [facility] obtains consent and uploads electronically. [facility] obtains vital signs and pictures of area of question, pictures sent to [facility] via [employer]arely. PT explains that pt Fx tibia and ankle shifted position while in [place]. When pt returned to [place] and was reevaluated surgery was performed to [...] walking to help support the injured area. [facility] contacts [facility] and explains above mentioned. [facility] recommends pt heavily moisturize the dry skin to prevent further blisters, PT is advised to reduce any type of trauma to the leg such as the boot or socks. [facility] advises blisters will pop on their own but Dr will reach out to wound care to try and get them out there to manage the wounds for the time being. PT is advised to look out for infection such as cellulitis, redness, or any signs of fever. PT and understand. [facility] red. ..................... ..................... ..................... ..................... ..................... ..................... ............... [facility] Consulted: Viola Martinez ..................... ..................... ..................... ..................... ..................... ..................... ............... Disposition: Fulfilled Viola Martinez MD [address] [facility],[address], [place], [phone], [employer] 07/02/2024 08:02:17 08/10/2024 text/html CRC Nurse Triage [...] Type 2, Cancer, Asthma PMH Reviewed at 08/10/2024 Allergies Reviewed at 08/10/2024:33 Comments: 59 y.o [...] ..................... ..................... ..................... ..................... ..................... ..................... ............... Lot Boss Note From Isaac Oropeza: Encountered patient conscious [...] had a tooth dislodge from the gum. [facility] contacted: states patient would most benefit from [...] ..................... ..................... ..................... ..................... ..................... ..................... ............... [facility] Consulted: Bianca Nixon ..................... ..................... ..................... ..................... ..................... ..................... ............... Disposition: Fulfilled Bianca Nixon MD [address] [place] [address],[address], [place], [phone], KIP MARCUS 08/10/2024 17:51:36
== END 2024-09-09 12:46 | disposition home or self-care (01) ==
LOC: HO.HUSH 11:07
PROVIDERS: Visit Provider Urology
DX: C61 Malignant neoplasm of prostate (principal); R32 Unspecified urinary incontinence; Z13.9 Encounter for screening, unspecified
CPT/HCPCS: 99213; G2211

== ENCOUNTER → 2024-09-09 11:07 | Outpatient (BNVA) | payer OTHER, SELFPAY | PROVIDERS: Visit Provider Urology | DX: C61 Malignant neoplasm of prostate (principal); R32 Unspecified urinary incontinence | CPT/HCPCS: 81003; 99212 ==

== ENCOUNTER 2024-09-15 11:31 | Outpatient (AMB) | payer OTHER, SELFPAY ==
[2024-09-15 11:35] VITALS: BP 116/70; PULSE 85; O2SAT 96; BMI 40.5
--- NOTE | 2024-09-15 11:35 | A.OFFPC_ITS ---
Vital Signs 09/15/24 11:35 Height 5 ft 9 in Weight 274 lb 6 oz BMI 40.5 BP 116/70 Blood Pressure Location Lt brachial Position Sitting Pulse 85 Pulse Source Pulse Oximeter Pulse Oximetry (%) 96 Oxygen Delivery Method Room Air Intake Visit Reasons: strange growth on the arm/A1C needed! 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 Accompanied by: Self / Same As Patient Allergies No Known Allergies Allergy (Verified 09/15/24 12:04) Medication List - Last Reconciled 09/15/24 by Clayton Raza MD albuterol sulfate 90 mcg/actuation (Ventolin HFA) 2 puffs inhalation Q6H PRN albuterol sulfate 2.5 mg (3 mL) inhalation BID 30 days amlodipine 10 mg PO DAILY 90 days aspirin 81 mg PO DAILY 90 days [BEDSIDE COMMODE As directed] blood pressure test kit-large As directed [DISPOSABLE BED PADS As directed] enalapril maleate 20 mg PO DAILY ezetimibe 10 mg PO DAILY abeabfvoxzq-pbokzeiza-gklwaiav 200-62.5-25 mcg (Trelegy Ellipta) 1 inh inhalation DAILY 30 days [Kneeling Scooter duration 99 days] metformin 250 mg (1/2 x 500 mg) PO DAILY 30 days methocarbamol 750 mg PO Q8H PRN montelukast (Singulair) 10 mg PO BEDTIME 30 days nabumetone 750 mg PO BID PRN 30 days nebulizers As directed rosuvastatin 40 mg PO DAILY terazosin 5 mg PO BEDTIME 90 days [TRANSFER TUB BENCH As directed] [WHEELED WALKER As directed] Tobacco use date assessed: 09/15/24 Dental Screening Dental Screen Date: 09/15/24 Did you have a dental visit in the last 12 months?: No Did you have a dental problem in the last 6 months where you did not have access to dental care?: No Was dental information given to patient?: No HPI strange growth on the arm/A1C needed! HPI Details Patient comes in today for his follow up visit States that he has a growth on his left forearm for a few months now and feels that this has gotten a lot bigger over the past month Notes that the growth looks like a soft mass on his left forearm just distal to the left antecubital fossa, and that the mass does not hurt He denies any recent injury or trauma to his left forearm States that he feels okay otherwise He denies any headaches or dizziness Denies any chest pains, no shortness of breath No nausea/vomiting, no abdominal pain No change in bowel habits noted He had his follow up labs done last week - to discuss his results [facility] Medical History Osteoarthritis of both hands Asthma-COPD overlap syndrome Personal history of colonic polyps Pre-op chest exam Left knee pain Annual physical exam Obese Pulmonary nodules Hiatal hernia Obesity (BMI 30-39.9) Benign essential hypertension Pure hypercholesterolemia Diabetes mellitus Coronary artery disease LUIS (obstructive sleep apnea) Chronic cough Degenerative disc disease Lung fibrosis Bronchial asthma Surgical History Hx of prostate biopsy History of esophagogastroduodenoscopy (EGD) Hx of colonoscopy S/P arterial stent Social History Housing: Apartment Alcohol intake: current Alcohol intake frequency: holidays/special occasions only Patient Tobacco Use Status: Never used Tobacco e-Cigarette/Vaping Use: Never Used Second Hand Smoke Exposure: No Substance Use Type: Marijuana service: No Current occupational status: disabled Cognitive needs: No Hearing needs: No Vision needs: Yes Questionnaire PHQ-9 Over the last 2 weeks, how often have you been bothered by any of the following problems? 1. Little interest or pleasure in doing things: not at all 2. Feeling down, depressed, or hopeless: several days 3. Trouble falling or staying asleep, or sleeping too much: several days 4. Feeling tired or having little energy: several days 5. Poor appetite or overeating: several days 6. Feeling bad about yourself - or that you are a failure or have let yourself or your family down: several days 7. Trouble concentrating on things, such as reading the newspaper or watching television: several days 8. Moving or speaking so slowly that other people could have noticed. Or the opposite - being so fidgety or restless that you have been moving around a lot more than usual: several days 9. Thoughts that you would be better off or of hurting yourself in some way: not at all Total score: 7 Depression Screening Interpretation: Positive Depression Screening Follow-up: Follow-up Visit Requested Depression Screening Done: Yes 12776 - PHQ-9 Billing: Yes Source: Developed by Drs. Aram Christopher, Carrie Dimas, Urban Denney and colleagues, with an educational bud from [employer]. Thrive Questionnaire Date Thrive assessed: 09/15/24 I am a: Parent/Caregiver What is your living situation today?: I have a steady place to live Within the past 12 months, did the food you bought not last and you didn't have the money to get more?: I choose not to answer this question Within the past 12 months, did you worry whether your food would run out before you got money to buy more?: I choose not to answer this question Do you have trouble paying for medicines?: No Do you have trouble getting transportation to medical appointments?: No Do you have trouble paying your heating and electricity bill?: Yes Do you have trouble taking care of your child, family member or friend?: I choose not to answer this question Do you have trouble with day-to-day activities such as bathing, preparing meals, shopping, managing finances, etc.?: I choose not to answer this question Are you currently unemployed and looking for a job?: I choose not to answer this question Are you interested in more education?: I choose not to answer this question Please select the resources that you would like help with: None Currently or been in a relationship where the following occur: No concerns reported THRIVE Score: 1 AUDIT C Alcohol Use Questionnaire (AUDIT-C) 1. How often do you have a drink containing alcohol?: Never 3. How often do you have six or more drinks on one occasion?: Never Total Score: 0 Score Reviewed/Action Taken: Yes JUAN LUIS-7 AMB Questionnaire JUAN LUIS-7 Date JUAN LUIS - 7 assessed: 09/15/24 Feeling nervous, anxious, or on edge: 0 = Not at all Not being able to stop or control worryin = Not at all Worrying too much about different things: 0 = Not at all Trouble relaxin = Not at all Being so restless that it is hard to sit still: 0 = Not at all Becoming easily annoyed or irritable: 0 = Not at all Feeling afraid as if something awful might happen: 0 = Not at all Total JUAN LUIS-7 score (0-4 normal; 5-9 mild; 10-14 moderate; 15-21 severe): 0 Source: Developed by Drs. Aram Christopher, Carrie Dimas, Urban Denney and colleagues, with an educational bud from [employer]. Review of Systems Const Denies chills, Denies fatigue, Denies fever(s) and Denies headache(s) ENT Denies dysphagia, Denies dizziness, Denies otalgia, Denies headache(s), Denies neck pain, Denies odynophagia and Denies sore throat Card Denies chest pain, Denies palpitations and Denies dyspnea Resp Denies chest congestion, Denies cough and Denies dyspnea GI Denies abdominal pain, Denies constipation, Denies dysphagia, Denies heartburn, Denies diarrhea, Denies nausea, Denies odynophagia and Denies vomiting Denies difficulty urinating, Denies dysuria, Denies nocturia and Denies urinary frequency Musc Reports back pain (over the lower back - increased lately), Reports arthralgias (over both knees) and Denies neck pain Skin/Breast Details: (+) mass on left forearm - see HPI Denies rash Neuro Denies dizziness and Denies headache(s) Endo Denies fatigue and Denies palpitations Dale/Lymph Denies easy bruising Physical exam (Primary Care) Vital Signs: Last Vital Signs Pulse 85 09/15/24 11:35 BP 116/70 09/15/24 11:35 Pulse Ox 96 09/15/24 11:35 Oxygen Delivery Method Room Air 09/15/24 11:35 BMI result Body Mass Index 40.5 Tobacco/Smoking Status: Tobacco use Status Tobacco use date assessed 09/15/24 09/15/24 11:52 Patient Tobacco Use Status Never used Tobacco 09/15/24 11:36 e-Cigarette/Vaping Use Never Used 09/15/24 11:36 PHQ-9: PHQ-9 Score PHQ-9: Total score 7 09/17/24 03:55 Depression Screening Interpretation: Positive Depression Screening Follow-up: Follow-up Visit Requested Thrive Assessment: Date of Thrive Assessment Date Thrive assessed 09/15/24 09/15/24 11:52 Currently or been in a relationship where the following occur: No concerns reported Const General: no acute distress and alert HENMT Ears: TM's normal bilaterally and EAC's normal Throat: Yes posterior oropharynx normal and Yes tonsils normal (no TP congestion) Neck Neck: Yes supple and No lymphadenopathy Thyroid: Thyroid normal Resp Auscultation: no rales, no wheezes and diminished lung sounds (slightly) bilateral Cardio Rate: regular rate Rhythm: regular rhythm Heart sounds: no murmurs GI Palpation (GI): Soft to palpation and nontender Auscultation: normal bowel sounds General: Yes no CVA tenderness Back/Spine/Pelvis Back: no CVA tenderness Thoracic/Lumbar Spine: lumbar spinal tenderness Skin Other: (+) large, soft, palpable, non-tender mass over the volar aspect of the left forearm just distal to the left antecubital fossa Rashes: no rashes Extrem General: Yes no clubbing, cyanosis or edema Right lower extremity: knee Details: tenderness; no swelling Left lower extremity: knee Details: tenderness; no swelling Results Reviewed Results Reviewed: Laboratory Tests 06/17/23 07/07/23 08/26/23 07:16 12:06 10:42 WBC 3.2 L Hgb 14.2 Hct 40.8 L Plt Count 238 Sodium 140 Potassium 4.1 Creatinine 0.79 Estimated GFR > 60 Fasting Glucose 99 Hgb A1c (Clinic) Hemoglobin A1c % Calcium 9.9 D AST 27 ALT 37 Triglycerides 49 Cholesterol 159 LDL Cholesterol, Calc 78 HDL Cholesterol 72 Prostate Specific Ag < 0.10 25-OH Vitamin D Total 21.2 L TSH 1.06 Total Testosterone Ur Specific [place] Urine Protein Urine Glucose (UA) Urine Blood Urine Nitrite Ur Leukocyte Esterase Microalb/Creat Ratio 10/13/23 09/05/24 10:26 11:29 WBC 2.7 L Hgb 14.0 Hct 41.4 L Plt Count 220 Sodium 141 Potassium 3.8 Creatinine 0.78 Estimated GFR > 60 Fasting Glucose 115 H Hgb A1c (Clinic) 5.9 Hemoglobin A1c % 6.1 H Calcium 8.7 AST 30 ALT 33 Triglycerides 43 Cholesterol 136 LDL Cholesterol, Calc 67 HDL Cholesterol 61 Prostate Specific Ag < 0.10 25-OH Vitamin D Total 17.1 L TSH Total Testosterone 243 L Ur Specific [place] 1.020 Urine Protein Negative Urine Glucose (UA) Negative Urine Blood Negative Urine Nitrite Negative Ur Leukocyte Esterase Negative Microalb/Creat Ratio 12.4 Coding Level of Care Code Est Pt Level 4 (81426) Complex EM visit Add On G2211 Diagnoses Pulmonary fibrosis J84.10 Asthma-COPD overlap syndrome J44.9 Coronary artery disease involving [place] coronary artery of [place] heart without angina pectoris I25.10 Associated angina: without angina Coronary Disease-Associated Artery/Lesion type: [place] artery [place] vs. 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 insulin use: without longterm use Diabetes mellitus type: type 2 Pure hypercholesterolemia E78.00 Benign essential hypertension I10 Subcutaneous mass of left forearm R22.32 Prostate cancer C61 Degeneration of intervertebral disc of lumbar region with discogenic back pain M51.360 Disc-related pain type: discogenic back pain only Primary osteoarthritis of both hands M19.041; M19.042 Osteoarthritis type: primary Pain in both knees, unspecified chronicity M25.561; M25.562 Chronicity: unspecified Gastroesophageal reflux disease without esophagitis K21.9 Esophagitis presence: without esophagitis Obesity (BMI 30-39.9) E66.9 Additional Codes PHQ-9 - 40704 - PHQ-9 Billing: Yes ([id number]) Assessment & Plan Assessment & Plan (1) Pulmonary fibrosis: Code(s): J84.10 - Pulmonary fibrosis, unspecified Category: Medical Plan: Chest CT done on 12/02/2021 revealed (+) chronic pulmonary parenchymal changes with nodules measuring up to 0.9 cm, with (+) coarsely calcified mediastinal/hilar lymph nodes suggesting old granulomatous disease Follow up CT done on 01/06/2023 revealed no interval change in bilateral pulmonary nodules and recommend follow up chest CT in 18 to 24 months His most recent chest CT done on 02/12/2024 revealed (+) overall improvement since prior examination. Findings of posterior granulomatous disease processes such as sarcoidosis, probably stage II, are seen Continue Trelegy Ellipta 200-62.5-25 mcg 1 inhalation QD Follow up with pulmonary as scheduled (2) Asthma-COPD overlap syndrome: Code(s): J44.9 - Chronic obstructive pulmonary disease, unspecified Category: Medical Plan: Stable/controlled Continue Trelegy Ellipta 200-62.5-25 mcg 1 inhalation QD and Albuterol HFA 2 inhalations Q 6 hours PRN He also has Albuterol nebulizer solution to use with his updraft machine Q 6 hours when needed Follow up with pulmonary as scheduled (3) Coronary artery disease: Comment: S/P coronary stent following cardiac cath.-2018-[facility] / [facility] Code(s): I25.10 - Atherosclerotic heart disease of [place] coronary artery without angina pectoris Category: Medical Qualifiers: Associated angina: without angina Coronary Disease-Associated Artery/Lesion type: [place] artery [place] vs. transplanted heart: [place] heart Qualified Code(s): I25.10 - Atherosclerotic heart disease of [place] coronary artery without angina pectoris Plan: Patient is currently asymptomatic from a cardiovascular standpoint Continue Aspirin 81 mg QD and aggressive risk factor reduction Follow up with cardiology at [facility] as scheduled (4) Diabetes mellitus: Code(s): E11.9 - Type 2 diabetes mellitus without complications Category: Medical Qualifiers: Diabetes mellitus complication status: without complication Diabetes mellitus longterm insulin use: without longwall machine operator helper use Diabetes mellitus type: type 2 Qualified Code(s): E11.9 - Type 2 diabetes mellitus without complications Plan: His in-office HgbA1c done today is at 5.9% (HgbA1c was at 6.1% last month) - goal is <6.5% Reinforced diabetic diet Continue Metformin 500 mg 1/2 tablet QD (5) Pure hypercholesterolemia: Code(s): E78.00 - Pure hypercholesterolemia, unspecified Category: Medical Plan: Results of his labs done last week reviewed and discussed with patient Reinforced low cholesterol diet Continue Rosuvastatin 40 mg QD and Ezetimibe 10 mg QD Will recheck his labs and fasting lipids in 4 months for follow up (6) Benign essential hypertension: Code(s): I10 - Essential (primary) hypertension Category: Medical Plan: Reinforced low sodium diet - goal is systolic BP of at least 120 mm or less Continue Amlodipine 10 mg QD and Enalapril 20 mg QD (7) Subcutaneous mass of left forearm: Code(s): R22.32 - Localized swelling, mass and lump, left upper limb Category: Medical Plan: Have advised patient that the mass or growth over his left forearm appear consistent with a lipoma of subcutaneous cyst Will refer him to surgery for further evaluation and management (8) Prostate cancer: Comment: 08/24 high volume grade group 3 Code(s): C61 - Malignant neoplasm of prostate Category: Medical Plan: He was diagnosed with prostate cancer (adenocarcinoma) a couple of years ago and completed radiation Tx at [facility] last year - started on 03/02/2023 Continue Tamsulosin 0.4 mg Q HS and Terazosin 5 mg Q HS Follow up with urology as scheduled (9) Lumbar degenerative disc disease: Code(s): M51.36 - Other intervertebral disc degeneration, lumbar region Category: Medical Qualifiers: Disc-related pain type: discogenic back pain only Qualified Code(s): M51.360 - Other intervertebral disc degeneration, lumbar region with discogenic back pain only Plan: Lumbar spine x-rays last done in July 2023 revealed (+) multilevel lumbar spondylosis more pronounced at L5-S1 where there is neural foraminal encroachment; there are also very prominent left lateral osteophytes at L2 and L3. There is trace retrolisthesis of L5 on S1, otherwise, anatomic alignment is normal Repeat lumbar spine x-rays done back on 02/10/2024 revealed (+) moderate to severe degenerative disc disease at L5-S1 with no acute findings Reinforced activity and weight-lifting restrictions (10) Osteoarthritis of both hands: Code(s): M19.041 - Primary osteoarthritis, right hand; M19.042 - Primary osteoarthritis, left hand Category: Medical Qualifiers: Osteoarthritis type: primary Qualified Code(s): M19.041 - Primary osteoarthritis, right hand; M19.042 - Primary osteoarthritis, left hand Plan: X-rays of both hands done back in June 2022 revealed (+) mild osteoarthritis changes in both hands Labs done a couple of years ago came back (+) for ZAHIDA; RA was negative He does not appear to have any signs/symptoms of inflammatory joint disease Continue OTC Tylenol PRN for pain but avoid NSAIDs (11) Bilateral knee pain: Code(s): M25.561 - Pain in right knee; M25.562 - Pain in left knee Category: Medical Qualifiers: Chronicity: unspecified Qualified Code(s): M25.561 - Pain in right knee; M25.562 - Pain in left knee Plan: Left knee x-rays done back in June 2022 revealed (+) mild OA changes Repeat bilateral knee x-rays done back in February 2024 revealed (+) mild degenerative changes in the left knee and moderate degenerative changes in the right knee Follow up with orthopedics as scheduled (12) GERD (gastroesophageal reflux disease): Code(s): K21.9 - Gastro-esophageal reflux disease without esophagitis Category: Medical Qualifiers: Esophagitis presence: without esophagitis Qualified Code(s): K21.9 - Gastro-esophageal reflux disease without esophagitis Plan: Dietary restrictions reinforced Continue Omeprazole 20 mg QD Follow up with GI as scheduled (13) Obesity (BMI 30-39.9): Code(s): E66.9 - Obesity, unspecified Category: Medical Plan: Reinforced diet/exercise as tolerated/lose weight Plan Follow up in 4 months Orders: Orders Complete Blood Count Auto Diff 4 Months D64.9 - Anemia, unspecified Comprehensive [place]. Panel Fast 4 Months E78.00 - Pure hypercholesterolemia, unspecified Lipid Panel 4 Months E78.00 - Pure hypercholesterolemia, unspecified Microalbumin, Random (w Creat) 4 Months E11.9 - Type 2 diabetes mellitus without complications Vitamin D 25-OH Total 4 Months E55.9 - Vitamin D deficiency, unspecified Hemoglobin A1c 4 Months E11.9 - Type 2 diabetes mellitus without complications TSH reflex Free T4 4 Months E78.00 - Pure hypercholesterolemia, unspecified UA CC w/rflx Micro + Cult 4 Months R30.0 - Dysuria Referrals General Surgery Referral R22.32 - Localized swelling, mass and lump, left upper limb
--- OUTSIDE RECORDS SUMMARY | 2024-09-15 12:38 | XMS_ITS | Data Portability ---
Author Organization [facility] Address [address] [place] [id number] Care Team Providers Care Pneumatic Systems Operator Name Role Phone HIM CCA OTHER SO SIMS Primary Care Provider [phone] Assessment Encounter Date Assessment Date Assessment LastModified by Organization Details LastModified Time 07/01/2024 07/01/2024 I provided real -time medical direction via phone for this encounter and was available for additional phone-based assistance as needed. I have reviewed and agree with the Assessment and Plan as documented by the Diaphragm Builder. Patient given the opportunity to ask questions. [...] has had no fever or chills. Per gsa coordinator on the scene, vital signs stable patient [...] 5 96 % 96 % 14 /min 791219. 8 g 98.9 [degF] 91 /min 177.8 cm 136 mm[Hg] 81 mm[Hg] Not Available [facility] - production 5 20:44:55 Date Recorded Respiratory rate Heart rate Body temperature Oxygen saturation Oxygen saturation in Arterial blood by Pulse oximetry Systolic blood pressure Diastolic blood pressure Provider Name and Address Organization Details Last Updated DateTime 5 16 /min 88 /min 98 [degF] 95 % 95 % 154 mm[Hg] 82 mm[Hg] Not Available [facility] - production 5 17:42:57 Social History None recorded. Functional Status None recorded. Mental Status None recorded. Family History Nothing Reported. Medical History No medical history recorded. Past Encounters Encounter ID Performer Location Encounter Start Date Encounter Closed Date Diagnosis/Indication Diagnosis SNOMED-CT Code Diagnosis ICD10 Code Diagnosis Note [id number] Viola Martinez MD [facility] [address] [place] [phone] 07/01/2024 20:34:27 07/02/2024 19:21:24 Wound of skin [id number] T14.8XXA [id number] Bianca Nixon MD [facility] - [facility] [address] [place] [phone] 08/10/2024 17:42:53 08/10/2024 19:31:10 Tooth disorder [id number] K08.9 59 year old male with poor [...] assessment and plan as documented by the gsa coordinator. I provided real-time medical direction for this [...] Nelson Member ID Guarantor Name 08/10/2024 1 [facility] - DOS ON OR AFTER 2022 - DUAL ELIGIBLE - RESIDENTIAL OPTIONS AND ONE CARE (MEDICARE REPLACEMENT/ADV ANTAGE - HMO) Kd Rajan [id number] Kd Rajan Notes Date Note Type Note [...] ..................... ..................... ..................... ..................... ..................... ..................... ............... Diaphragm Builder Note From Daniel Millan: [facility] makes pt contact a 59 yo M W/ CC of blisters around a surgery site after removal of a cast. [facility] obtains consent and uploads electronically. [facility] obtains vital signs and pictures of area of question, pictures sent to [facility] via [employer]. PT explains that pt Fx tibia and ankle shifted position while in [place]. When pt returned to [place] and was reevaluated surgery was performed to [...] walking to help support the injured area. [facility] contacts [facility] and explains above mentioned. [facility] recommends pt heavily moisturize the dry skin to prevent further blisters, PT is advised to reduce any type of trauma to the leg such as the boot or socks. [facility] advises blisters will pop on their own but Dr will reach out to wound care to try and get them out there to manage the wounds for the time being. PT is advised to look out for infection such as cellulitis, redness, or any signs of fever. PT and understand. [facility] red. ..................... ..................... ..................... ..................... ..................... ..................... ............... [facility] Consulted: Viola Martinez ..................... ..................... ..................... ..................... ..................... ..................... ............... Disposition: Fulfilled Viola Martinez MD [address] [facility],[address], [place], [phone], [employer] 07/02/2024 08:02:17 08/10/2024 text/html CRC Nurse Triage [...] ..................... ..................... ..................... ..................... ..................... ..................... ............... Diaphragm Builder Note From Isaac Oropeza: Encountered patient conscious [...] had a tooth dislodge from the gum. [facility] contacted: states patient would most benefit from [...] ..................... ..................... ..................... ..................... ..................... ............... [facility] Consulted: Bianca Nixon ..................... ..................... ..................... ..................... ..................... ..................... ............... Disposition: Fulfilled Bianca Nixon MD [address] [place] [address],[address], [place], [phone], KIP MARCUS 08/10/2024 17:51:36
== END 2024-09-15 12:13 | disposition home or self-care (01) ==
LOC: HO.HMCH 11:31
PROVIDERS: Visit Provider Internal Medicine
DX: J84.10 Pulmonary fibrosis, unspecified (principal); J44.9 Chronic obstructive pulmonary disease, unspecified; E11.9 Type 2 diabetes mellitus without complications; C61 Malignant neoplasm of prostate; I25.10 Atherosclerotic heart disease of native coronary artery without angina pectoris; E78.00 Pure hypercholesterolemia, unspecified; I10 Essential (primary) hypertension; R22.32 Localized swelling, mass and lump, left upper limb; M51.360 Other intervertebral disc degeneration, lumbar region with discogenic back pain only; M19.041 Primary osteoarthritis, right hand; M19.042 Primary osteoarthritis, left hand; M25.561 Pain in right knee

== ENCOUNTER → 2024-09-15 11:31 | Outpatient (BNVA) | payer OTHER, SELFPAY | PROVIDERS: Visit Provider Internal Medicine | DX: J84.10 Pulmonary fibrosis, unspecified (principal); J44.9 Chronic obstructive pulmonary disease, unspecified; I25.10 Atherosclerotic heart disease of native coronary artery without angina pectoris; E11.9 Type 2 diabetes mellitus without complications; E78.00 Pure hypercholesterolemia, unspecified; I10 Essential (primary) hypertension; R22.32 Localized swelling, mass and lump, left upper limb; C61 Malignant neoplasm of prostate; M51.360 Other intervertebral disc degeneration, lumbar region with discogenic back pain only; M19.041 Primary osteoarthritis, right hand; M19.042 Primary osteoarthritis, left hand; M25.561 Pain in right knee; M25.562 Pain in left knee; K21.9 Gastro-esophageal reflux disease without esophagitis; E66.9 Obesity, unspecified; E55.9 Vitamin D deficiency, unspecified; R30.0 Dysuria; Z68.41 Body mass index [BMI] 40.0-44.9, adult | CPT/HCPCS: 96127; 99212 ==

== ENCOUNTER 2024-09-21 13:00 | Outpatient (RCR) | payer OTHER, SELFPAY ==
--- NOTE | 2024-07-05 12:54 | MHC.PT.EP ---
[facility] [place] Office [place] Office [place] Office [address] [phone] F: [phone] F: [phone] F: [phone] F: [phone] Physical Therapy Plan of Care Date of Evaluation: 07/05/24 Date of Surgery: 05/11/24 Diagnosis: S/P ORIF Lt ANKLE , Displaced bimalleolar fracture of left lower leg -> WBAT IN BOOT, ROM, GENTLE STRENGTHENING, PROPRIOCEPTION Assessment: 59 YO MALE REF TO PT W H/O 04/25/24 FALL, 05/11/24 ORIF FOR Displaced bimalleolar fracture of left lower leg W DR RAO, HE WAS CASTED UNTIL 06/27/24 ORTHO F/U-> ISSUED A TALL BOOT AND CLEARED FOR WBAT Lt LE. 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 HE HAS ALTERED GAIT, LIMITED ROM Lt ANKLE, DECR SCAR MOB/ TISSUE TENSION, STRENGTH DEFICITS IN Lt LE, AND FLUCTUATING PAIN IN Lt ANKLE. HE AGREES W PT POC TO ADDRESS THE ABOVE FINDINGS, DEV A HEP, AND ADVANCE FUNCTIONAL INDEPENDENCE. Frequency and Duration: The patient will be seen 2 x WK x 10 WKS Short Term Goals: *DECR EDEMA Lt DISTAL LE, IMPROVE SCAR MOB *INITIATE HEP *INCREASE ROM Lt ANKLE *Pt DEMON IMPROVED GAIT MECH W DANNY CRUTCHES AND Lt BOOT, WBAT Mri Ct Tech Goals: *INDEP HEP *Pt DEMON WFL AROM Lt ANKLE *Pt DEMO EFFICIENT GAIT W/O ASST DEVICES, ON LEVEL GROUND AND STAIRS *Pt RESUME REG ADLs -> IMPROVED LEFI (AT EVAL ) Treatment Plan: Modalities to reduce pain, spasms and effusion. Manual therapy to restore motion and function. Therapeutic exercise to improve strength and flexibility. Neuromuscular re-education for posture and balance. Therapeutic activities to return to functional activities of daily living. Electronically signed by: LUCY GUTIERREZ,PT Please sign and return to therapist. Thank you for your referral.
--- NOTE | 2024-09-21 13:53 | MHC.PT.DC ---
[facility] [place] Office [place] Office [address] Avinash Horvath [address] [phone] F: [phone] F: [phone] F: [phone] F: [phone] Physical Therapy Discharge Report Diagnosis: S/P ORIF Lt ANKLE , Displaced bimalleolar fracture of left lower leg -> WBAT IN BOOT, ROM, GENTLE STRENGTHENING, PROPRIOCEPTION Date of Surgery: 05/11/24 Date of Evaluation: 07/05/24 Date of Discharge: 09/21/24 Treatments to Date: 20 Cancellations to Date: 1 No Shows to Date: Discharge Status: Achieved Goals Improved Function Independent with HEP Discharge Summary: BARTOLO HAS PROGRESSED NICELY IN PT- HE HAS RESUMED REG ADLs AND NOTES HAPPY WITH HIS CURRENT STRENGTH AND LEVEL OF FUNCTIONAL INDEPENDENCE- HE MET HIS PT GOALS AND IS READY FOR D/C AT THIS TIME FROM PT- HE USES Lt ANKLE SUPPORT WITH OUTSIDE ACTIVITIES, LESSENED INDOOR WEAR TIME . HIS LEFI AT D/C IS 44/80 AND AT EVAL, 4/80. Electronically signed by: LUCY GUTIERREZ,PT Please sign and return to therapist. Thank you for your referral.
== END 2024-09-21 13:53 | disposition home or self-care (01) ==
LOC: HO.PT 13:00
PROVIDERS: PCP Internal Medicine; Visit Provider Physician Assistant
DX: S82.892D Other fracture of left lower leg, subsequent encounter for closed fracture with routine healing (principal)
CPT/HCPCS: 97110; 97112; 97116; 97140; 97162; 97530

== ENCOUNTER 2024-10-20 13:44 | Outpatient (AMB) | payer OTHER, SELFPAY ==
--- NOTE | 2024-10-20 13:52 | MHC.OFFVIS ---
Vital Signs 10/20/24 14:02 Height 5 ft 9 in Weight 275 lb BMI 40.6 BP 132/69 Blood Pressure Location Lt brachial Position Sitting Pulse 91 Intake Visit Reasons: mass and lump, left upper limb Intake Note: Patient is seen in office for evaluation of a lump of the left upper limb. Pt c/o: has a lump on the left forearm, onset for yrs, increase in size, denies pain, discharge, discoloration, no prior concerns Customer Marketing Intern Required: No Accompanied by: Self / Same As Patient Allergies No Known Allergies Allergy (Verified 10/20/24 13:58) Medication List - Last Reconciled 10/20/24 by Mayank Canales MD albuterol sulfate 90 mcg/actuation (Ventolin HFA) 2 puffs inhalation Q6H PRN albuterol sulfate 2.5 mg (3 mL) inhalation BID 30 days amlodipine 10 mg PO DAILY 90 days aspirin 81 mg PO DAILY 90 days [BEDSIDE COMMODE As directed] blood pressure test kit-large As directed [DISPOSABLE BED PADS As directed] enalapril maleate 20 mg PO DAILY ezetimibe 10 mg PO DAILY nuxiqyihsvm-ufpsrpetb-peefymul 200-62.5-25 mcg (Trelegy Ellipta) 1 inh inhalation DAILY 30 days [Kneeling Scooter duration 99 days] metformin 250 mg (1/2 x 500 mg) PO DAILY 30 days methocarbamol 750 mg PO Q8H PRN montelukast (Singulair) 10 mg PO BEDTIME 30 days nabumetone 750 mg PO BID PRN 30 days nebulizers As directed rosuvastatin 40 mg PO DAILY tamsulosin 0.4 mg PO BEDTIME terazosin 5 mg PO BEDTIME 90 days [TRANSFER TUB BENCH As directed] [WHEELED WALKER As directed] HPI HPI mass and lump, left upper limb: Details: 59-year-old male referred for lump on the left arm. He said that he has had this for about 15 years. He says that this has been increasing in size and has been starting to bother him He denies any skin changes or any discharge. He says he had stent placement done about 15 years ago but is not on anticoagulation. He also says he had surgery under anesthesia for a left ankle fracture about 5 months ago. [facility] Medical History Lipoma of left upper extremity Osteoarthritis of both hands Asthma-COPD overlap syndrome Personal history of colonic polyps Pre-op chest exam Left knee pain Annual physical exam Obese Pulmonary nodules Hiatal hernia Obesity (BMI 30-39.9) Benign essential hypertension Pure hypercholesterolemia Diabetes mellitus Coronary artery disease LUIS (obstructive sleep apnea) Chronic cough Degenerative disc disease Lung fibrosis Bronchial asthma Surgical History Hx of prostate biopsy History of esophagogastroduodenoscopy (EGD) Hx of colonoscopy S/P arterial stent Social History Housing: Apartment Alcohol intake: current Alcohol intake frequency: holidays/special occasions only Patient Tobacco Use Status: Never used Tobacco e-Cigarette/Vaping Use: Never Used Second Hand Smoke Exposure: No Substance Use Type: Marijuana service: No Current occupational status: disabled Cognitive needs: No Hearing needs: No Vision needs: Yes Review of Systems Const Denies chills and Denies fever(s) Card Denies chest pain, Denies dyspnea and Denies dyspnea on exertion Resp Denies cough, Denies dyspnea and Denies dyspnea on exertion GI Denies hematochezia and Denies change in bowel habits Denies hematuria and Denies difficulty urinating Musc Reports abnormal gait, Denies back pain, Reports arthralgias and Denies limited range of motion Neuro Reports abnormal gait, Denies focal weakness and Denies convulsions Psych Denies depression and Denies mood swings Physical Exam Const Other: Obese, walks with a cane General: comfortable and no acute distress Orientation/consciousness: patient oriented x3 Neck Neck: Yes no lymphadenopathy Resp Auscultation: clear to auscultation bilaterally Cardio Rhythm: regular rhythm GI Palpation (GI): Soft to palpation, nontender and no guarding Neuro General: patient oriented x3 Extrem Other: Large, lipomatous mass, up to 9 cm in longest dimension on the left arm extending from the proximal forearm all the way to past the elbow of the upper arm, well-defined, mobile Assessment & Plan Assessment & Plan (1) Lipoma of left upper extremity: Code(s): D17.22 - Benign lipomatous neoplasm of skin and subcutaneous tissue of left arm Category: Medical Plan He has a large lipomatous mass on the left arm from the proximal forearm extending to just past the elbow proximally. I explained the technique of excision which will be done under anesthesia in view of the size. I reviewed the risks including but not limited to bleeding, infections and poor healing, injury to nerves and vessels or muscles, as well as the benefits and alternatives. He says he understands and wants to proceed. Coding Level of Care Code New Pt Level 3 (47886) Diagnoses Lipoma of left upper extremity D17.22
[2024-10-20 14:02] VITALS: BP 132/69; PULSE 91; BMI 40.6
== END 2024-10-20 14:09 | disposition home or self-care (01) ==
PROVIDERS: PCP Internal Medicine; Visit Provider Surgery
DX: D17.22 Benign lipomatous neoplasm of skin and subcutaneous tissue of left arm (principal)
CPT/HCPCS: 99203

== ENCOUNTER → 2024-10-20 13:44 | Outpatient (BNVA) | payer OTHER, SELFPAY | PROVIDERS: PCP Internal Medicine; Visit Provider Surgery | DX: D17.22 Benign lipomatous neoplasm of skin and subcutaneous tissue of left arm (principal) | CPT/HCPCS: 99202 ==

== ENCOUNTER 2024-11-24 10:50 | Outpatient (AMB) | payer OTHER, SELFPAY ==
[2024-11-24 10:56] VITALS: BP 132/72; PULSE 81; BMI 41.5
--- NOTE | 2024-11-24 10:56 | MHC.OFFVIS ---
Vital Signs 11/24/24 10:56 Height 5 ft 9 in Weight 281 lb 4.957 oz BMI 41.5 BP 132/72 Blood Pressure Location Lt brachial Position Sitting Pulse 81 Pulse Source Monitor Intake Visit Reasons: 1 yr f/up Historic Site Administrator Required: Yes Historic Site Administrator Name: voice song [id number] Allergies No Known Allergies Allergy (Verified 11/24/24 11:00) Medication List - Last Reconciled 11/24/24 by Akbar Banuelos MD albuterol sulfate 90 mcg/actuation (Ventolin HFA) 2 puffs inhalation Q6H PRN albuterol sulfate 2.5 mg (3 mL) inhalation BID 30 days amlodipine 10 mg PO DAILY 90 days aspirin 81 mg PO DAILY 90 days [BEDSIDE COMMODE As directed] blood pressure test kit-large As directed [DISPOSABLE BED PADS As directed] enalapril maleate 20 mg PO DAILY ezetimibe 10 mg PO DAILY aaacouiktub-ubogyticy-hflipzcb 200-62.5-25 mcg (Trelegy Ellipta) 1 inh inhalation DAILY 30 days [Kneeling Scooter duration 99 days] metformin 250 mg (1/2 x 500 mg) PO DAILY 30 days methocarbamol 750 mg PO Q8H PRN montelukast (Singulair) 10 mg PO BEDTIME 30 days nabumetone 750 mg PO BID PRN 30 days nebulizers As directed rosuvastatin 40 mg PO DAILY tamsulosin 0.4 mg PO BEDTIME terazosin 5 mg PO BEDTIME 90 days [TRANSFER TUB BENCH As directed] [WHEELED WALKER As directed] HPI Comments Details: Kd comes for follow-up. History was obtained with help of swaging machine adjuster. Patient says that he has been getting less active since his injury to the left leg for which she required surgery in May. Since then he has been trying to get back on track with walking but has been slow. Patient does complain of bilateral lower extremity swelling in mostly in the warmer months. Otherwise he has no symptoms of orthopnea, PND, leg edema. No worsening shortness of breath. No exertional angina. No lightheadedness, syncope. No prolonged palpitation irregular heartbeat. Takes all his medications. [facility] Medical History (Updated 11/24/24 @ 11:24 by Akbar Banuelos MD) Lipoma of left upper extremity Osteoarthritis of both hands Asthma-COPD overlap syndrome Personal history of colonic polyps Pre-op chest exam Left knee pain Annual physical exam Obese Pulmonary nodules Hiatal hernia Obesity (BMI 30-39.9) Benign essential hypertension Pure hypercholesterolemia Diabetes mellitus Coronary artery disease LUIS (obstructive sleep apnea) Chronic cough Degenerative disc disease Lung fibrosis Bronchial asthma Surgical History Hx of prostate biopsy History of esophagogastroduodenoscopy (EGD) Hx of colonoscopy S/P arterial stent Social History Housing: Apartment Alcohol intake: current Alcohol intake frequency: holidays/special occasions only Patient Tobacco Use Status: Never used Tobacco e-Cigarette/Vaping Use: Never Used Second Hand Smoke Exposure: No Substance Use Type: Marijuana service: No Current occupational status: disabled Cognitive needs: No Hearing needs: No Vision needs: Yes Review of Systems ENT Denies dizziness Card Denies chest pain, Denies chest pain at rest, Denies chest pain with activity, Denies rapid heart rate, Denies pedal edema, Denies edema, Reports leg edema (Bilateral below knee), Denies lightheadedness, Denies palpitations, Denies dyspnea, Denies dyspnea on exertion and Denies orthopnea Resp Denies cough, Denies dyspnea and Denies dyspnea on exertion GI Denies hematochezia and Denies change in stool character Musc Denies abnormal gait, Reports limited range of motion, Reports muscle cramps, Denies muscle weakness, Denies numbness, Denies radiating pain into limb, Denies stiffness and Denies tingling Neuro Denies abnormal gait, Denies dizziness, Denies numbness and Denies tingling Endo Denies palpitations Physical Exam Vital Signs: Last Vital Signs Pulse 81 11/24/24 10:56 BP 132/72 11/24/24 10:56 BMI result Body Mass Index 41.5 Office Procedures EKG Details: EKG shows normal sinus rhythm with PVC with right atrial enlargement [id number], Complete Assessment & Plan Assessment & Plan (1) Coronary artery disease: Comment: S/P coronary stent following cardiac cath.-2019-[facility] / [facility] w/[facility] Code(s): I25.10 - Atherosclerotic heart disease of [place] coronary artery without angina pectoris Category: Medical Qualifiers: Coronary Disease-Associated Artery/Lesion type: [place] artery [place] vs. transplanted heart: [place] heart Associated angina: without angina Qualified Code(s): I25.10 - Atherosclerotic heart disease of [place] coronary artery without angina pectoris Plan: CAD with stenting of the LAD for acute coronary syndrome with no recurrent symptoms. His current limited exercise capacity due to his left leg surgery and injury. I have advised to increase activity level. Aggressive participate in weight loss program and lifestyle modification was discussed. Continue lifelong aspirin therapy. Continue aggressive blood pressure control, see below. Continue high-intensity statin therapy with ezetimibe therapy with optimized LDL at this point time. Management of atherosclerotic heart disease was discussed with him. He shows understanding. Findings were discussed with help of swaging machine adjuster. (2) Benign essential hypertension: Code(s): I10 - Essential (primary) hypertension Category: Medical Plan: Hypertension which is well optimized on multiple medications. Recently having increased leg swelling bilaterally most likely due to amlodipine therapy. Discussed about compression stocking. Will update an echocardiogram to rule out any suggestive of increased cardiac pressures that could suggest incipient heart failure. This was discussed with him. Otherwise importance of low-salt diet and aggressive weight loss program was discussed. He understands agrees. Will follow up in the clinic in 1 year's time, sooner p.r.n.. Thank you for allowing me to partake in his care Orders: Orders CA echo transthoracic complete Today R60.0 - Localized edema Coding Level of Care Code Est Pt Level 4 (95801) Complex EM visit Add On G2211 Diagnoses Coronary artery disease involving q[place] coronary artery of [place] heart without angina pectoris I25.10 Coronary Disease-Associated Artery/Lesion type: [place] artery [place] vs. transplanted heart: [place] heart Associated angina: without angina Benign essential hypertension I10 CPT Codes EKG - CPT: [id number]-[id number], Complete ([id number])
--- OUTSIDE RECORDS SUMMARY | 2024-11-24 11:42 | XMS_ITS | Data Portability ---
Author Organization [employer] [facility], [facility] Address [address] [place] [address] Care Team Providers Care Heel Cover Splitter Name Role Phone HIM CCA OTHER SO SIMS Primary Care Provider Assessment Encounter Date Assessment Date Assessment LastModified by Organization Details LastModified Time 07/01/2024 07/01/2024 I provided real -time medical direction via phone for this encounter and was available for additional phone-based assistance as needed. I have reviewed and agree with the Assessment and Plan as documented by the Inorganic Chemist. Patient given the opportunity to ask questions. [...] has had no fever or chills. Per manager recruiting on the scene, vital signs stable patient [...] Body temperature Heart rate Body height Systolic And Diastolic Provider Name and Address Organization Details Last Updated DateTime 5 96 % 96 % 14 /min 195145. 8 g 98.9 [degF] 91 /min 177.8 cm 136/81 mm[Hg] Not Available [employer] production 5 20:44:55 Date Recorded Respiratory rate Heart rate Body temperature Oxygen saturation Oxygen saturation in Arterial blood by Pulse oximetry Systolic And Diastolic Provider Name and Address Organization Details Last Updated DateTime 5 16 /min 88 /min 98 [degF] 95 % 95 % 154/82 mm[Hg] Not Available [employer] - production 5 17:42:57 Social History None recorded. Functional Status None recorded. Mental Status None recorded. Family History Nothing Reported. Medical History No medical history recorded. Past Encounters Encounter ID Performer Location Encounter Start Date Encounter Closed Date Diagnosis/Indication Diagnosis SNOMED-CT Code Diagnosis ICD10 Code Diagnosis Note [id number] Viola Martinez MD [facility] [address] [place] [address] [phone] [id number] 07/01/2024 20:34:27 07/02/2024 19:21:24 Wound of skin 513686381 T14.8XXA [id number] Bianca Nixon MD [facility] [address] [place] [address] [id number] 08/10/2024 17:42:53 08/10/2024 19:31:10 Tooth disorder [id number] K08.9 59 year old male with poor [...] assessment and plan as documented by the manager recruiting. I provided real-time medical direction for this [...] Nelson Member ID Guarantor Name 08/10/2024 1 [facility] - DOS ON OR AFTER 2022 - DUAL ELIGIBLE - [facility] OPTIONS AND ONE CARE (MEDICARE REPLACEMENT/ADV ANTAGE - HMO) Kd Rajan [id number] Kd Rajan Notes Date Note Type Note [...] Nurse Triage Notes (Camila Turcios): Denies: Garza Flash, circumferential garza Garza reported with black [...] ..................... ..................... ..................... ..................... ..................... ..................... ............... Inorganic Chemist Note From Daniel Millan: [facility] makes pt contact a 59 yo M W/ CC of blisters around a surgery site after removal of a cast. [facility] obtains consent and uploads electronically. [facility] obtains vital signs and pictures of area of question, pictures sent to [facility] [place] [employer]. PT explains that pt Fx tibia and ankle shifted position while in [place]. When pt returned to [place] and was reevaluated surgery was performed to [...] walking to help support the injured area. [facility] contacts [facility] and explains above mentioned. [facility] recommends pt heavily moisturize the dry skin to prevent further blisters, PT is advised to reduce any type of trauma to the leg such as the boot or socks. [facility] advises blisters will pop on their own but Dr will reach out to wound care to try and get them out there to manage the wounds for the time being. PT is advised to look out for infection such as cellulitis, redness, or any signs of fever. PT and understand. [facility] clears. ..................... ..................... ..................... ..................... ..................... ..................... ............... [facility] Consulted: Viola Martinez ..................... ..................... ..................... ..................... ..................... ..................... ............... Disposition: Fulfilled Viola Martinez MD [address] [facility],[address], [place], [address], [employer] 07/02/2024 08:02:17 08/10/2024 text/html CRC Nurse Triage [...] Type 2, Cancer, Asthma PMH Reviewed at 08/10/2024: Allergies Reviewed at 08/10/2024:33 Comments: 59 y.o [...] ..................... ..................... ..................... ..................... ..................... ..................... ............... Inorganic Chemist Note From Isaac Oropeza: Encountered patient conscious alert and ambulatory with family present. Patient reports approximately one week of right molar pain exacerbated while he s eating. Patient denies any bleeding or [...] a tooth dislodge from the gum. [facility] contacted: states patient would most benefit from seeing his primary care doctor in order to receive a referral for an oral surgeon in order to have his teeth extracted. Patient expresses understanding and states he will call his primary care physician in order to schedule an appointment. 1g of PO Tylenol administered for patient s pain. Patient encouraged to seek further medical attention, including 911 if the symptoms are to worsen or favor to develop chest pain and shortness of breath or changes and vision. Patient verbalizes understanding and is comfortable with remaining at home at this time. ..................... ..................... ..................... ..................... ..................... ..................... ............... [facility] Consulted: Bianca Nixon ..................... ..................... ..................... ..................... ..................... ..................... ............... Disposition: Fulfilled Bianca Nixon MD [address] [facility],[address], [place], [phone], KIP MARCUS 08/10/2024 17:51:36
== END 2024-11-24 11:31 | disposition home or self-care (01) ==
LOC: HO.HCS 10:52
PROVIDERS: PCP Internal Medicine; Visit Provider Internal Medicine Cardiovascular Disease
DX: I25.10 Atherosclerotic heart disease of native coronary artery without angina pectoris (principal); I10 Essential (primary) hypertension
CPT/HCPCS: 93010; 99214; G2211

== ENCOUNTER → 2024-11-24 10:50 | Outpatient (BNVA) | payer OTHER, SELFPAY | PROVIDERS: PCP Internal Medicine; Visit Provider Internal Medicine Cardiovascular Disease | DX: Z01.818 Encounter for other preprocedural examination (principal); R60.0 Localized edema; J44.89 Other specified chronic obstructive pulmonary disease; J84.10 Pulmonary fibrosis, unspecified; R05.3 Chronic cough; G47.33 Obstructive sleep apnea (adult) (pediatric); K44.9 Diaphragmatic hernia without obstruction or gangrene; R91.8 Other nonspecific abnormal finding of lung field; C61 Malignant neoplasm of prostate; I25.10 Atherosclerotic heart disease of native coronary artery without angina pectoris; I10 Essential (primary) hypertension | CPT/HCPCS: 93005; 99212 ==

== ENCOUNTER 2024-11-24 13:22 | Outpatient (AMB) | payer OTHER, SELFPAY ==
--- NOTE | 2024-11-24 13:26 | A.OFFVIS_ITS ---
Vital Signs 11/24/24 13:36 Height 5 ft 9 in Weight 279 lb 15.793 oz BMI 41.3 BP 128/64 Blood Pressure Location Lt brachial Position Sitting Pulse 70 Pulse Source Pulse Oximeter Pulse Oximetry (%) 95 Oxygen Delivery Method Room Air Intake Visit Reasons: Pre-op/Lipoma Dr [place] Allergies No Known Allergies Allergy (Verified 11/24/24 13:39) HPI Comments Details: The patient is a 59 year-old gentleman who recently moved to the area from [place]. 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 His condition was advanced and required oxygen supplementation in even considered to be a candidate for lung transplantation. His condition improved significantly. He had a cardiac evaluation did require a percutaneous intervention with 1 stent. The patient also was evaluated by Pulmonary and placed on respiratory therapy with significant improvement of his overall status. The patient did have significant weight loss with exercise and also improved her respiratory status. Slowly was able to get off the oxygen. While he was in the ER she was evaluated for sleep apnea. The patient does have significant snoring and significant cardiovascular risk factors. He was diagnosed with sleep apnea and he was prescribed the CPAP. However he was not given instructions on how to use it and at that time he was moving out of the state therefore he returned the machine. Currently he is still having daytime drowsiness. His Boynton score is elevated 11 of 24. His was present in the room also documented snoring and also apneic episodes. The patient does benefit from having a repeat sleep study to further address his sleep apnea condition. During the visit we did go for walking oximetry. The patient was able to maintain a pulse ox of 94% with activity which is reassuring that he does not qualify for oxygen. He was indeed dyspneic with dyspnea score of 7/10 on the completion of the 6 minute walk test. The patient was per the sedating and pulmonary rehabilitation in [place]. The patient will benefit from pulmonary rehabilitation also here at [place]. Will discuss that further after undergoing pulmonary function studies and further imaging studies. I did review his chest x-ray that he had back in 2020 with no evidence of any acute disease. I do not appreciate any evidence of any reticular nodular opacities to suggest interstitial lung disease. as far as exposures he did work in [employer] for about 6-7 years in [place]. 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 He would end up with significant amount of dust in his body. 01/10/2022 the patient is here for a pulmonary follow-up visit. Overall he is doing better. Patient is responding well to the respiratory inhalers. Does have some dyspnea on exertion [id number] severity. Does get better with rest. We did review his recent CT scan of the chest personally by me. I did share the images with both the patient and his significant other. Appears to have some areas of scarring and some calcifications likely related to underlying pneumoconiosis or sarcoidosis. Seems to be stable without any evidence of any ground-glass opacities. Does have pulmonary nodules and to be followed. The CT scan also demonstrates and small hiatal hernia. On further questioning he does state having significant reflux issues. Patient is aware that reflux disease and worsen his interstitial lung process. Therefore needs to follow closely reflux diet. he will also start PPI times a month. In addition to that he continues to have daytime drowsiness. His Boynton score still elevated 11/24. He also has a history of pulmonary hypertension and therefore the patient does need to undergo his sleep study. He needs to call and schedule it at this time. As far as his pulmonary function studies will plan to do those with his next visit in 6 months. 10/14/2022 the patient is here for pulmonary follow-up visit. The patient has had multiple issues. He is being closely monitored by Urology. He had a biopsy demonstrating adenocarcinoma. He also underwent a PET scan confirming the findings. I did personally review the PET scan along with the CT scan images demonstrating pulmonary nodules largest 1 measuring 8 mm. None of the nodules demonstrated any FDG activity which is reassuring. Some of the nodules were below the after CF PET scan however. She will need to have those nodules monitor closely. The patient does have a history pulmonary fibrosis but I do not appreciate significant interstitial lung disease at this time. He is using his respiratory medicines with good effect. Denies any significant daytime drowsiness. He opted and not having the sleep study. He did follow-up with GI regarding his GI symptoms. Currently feeling better although still having some issues with reflux. From a pulmonary standpoint the patient will undergo spirometry today. If the patient does need to undergo surgery at this point the patient is medically optimized from a respiratory status. He does have mild risk for perioperative pulmonary complications which includes atelectasis, hypoxia, pneumonia and prolonged mechanical ventilation. The patient is able to receive with consent for both anesthesia and surgery if required. Spirometry from today demonstrating a moderate restrictive ventilatory defect consistent moderate COPD. 07/07/2023 the patient is here for a pulmonary follow-up visit. The patient has been having hard time for the last few weeks. He complaining of increasing chest tightness and wheezing. Moderate severity. He has been trying to get albuterol for his nebulizer and has not been able to do so. Denies any sick contacts denies any fevers or chills. He does have a cough congested in nature with white to yellowish phlegm. Dtiu-ag-zahpvxph severity. He has been using the Breo inhaler. Still having ongoing symptoms requiring his rescue inhaler multiple times a day. Will switch him over to Trelegy for better coverage. In the meantime will send him albuterol to treat his COPD. The patient should use it twice a day. In the meantime gotten treat him for lower respiratory infection and COPD exacerbation. Patient did complete his treatment for his prostate cancer which is reassuring. We did look at his last CT scan of the chest which was back in January 2023 demonstrating stable pulmonary nodules. Will discuss further additional testing during his next visit in 4-6 months. 01/08/2024 the patient is here for pulmonary follow-up visit. The patient overall has been doing well. He still having chest congestion but overall better. Still having chest tightness and shortness of breath. Specially when going up a flight of stairs. He has not been able to get his nebulizer medication. I will make sure to send to the pharmacy. The patient does have un derlying asthma COPD overlap syndrome. He does have increased symptoms right now also going to the fall. He may have an allergic component. Will add Singulair to his regimen. From a prostate standpoint the patient seems to be doing well. Will plan to request pulmonary function studies and also set him up pulmonary rehabilitation at this time. We did review his CT scan of the chest. Personally by me from 01/21/2023 demonstrating pulmonary nodules. The patient also has underlying prostate cancer. Therefore plan to repeat the CT scan the fall 2023 to make sure that the nodules have not progressed specially with assist her cancer. 11/24/2024 the patient is here for a pulmonary follow-up visit. Overall he is doing well. He stopped using the Trelegy. He was concerned about the inhaled corticosteroid therapy so therefore he stopped it. We did review his pulmonary function studies demonstrating a moderate obstruction. The patient needs to be on a bronchodilator. He is willing to go on Anoro where it does not have any steroids. He can do that daily in addition to have his rescue medicine available. From a respiratory status the patient is doing well it may be able to proceed with anesthesia and surgery for his lipoma right now. He does continue to have issues with chronic rhinitis and allergies. He is going to go back on SingInadcoir and he can take srdl-glp-[id number] antihistamine therapy. Will plan to follow-up in the springtime in the meantime he will proceed with his surgery as scheduled. REPLACED BY [facility] Medical History (Updated 11/24/24 @ 11:24 by Akbar Banuelos MD) Lipoma of left upper extremity Osteoarthritis of both hands Asthma-COPD overlap syndrome Personal history of colonic polyps Pre-op chest exam Left knee pain Annual physical exam Obese Pulmonary nodules Hiatal hernia Obesity (BMI 30-39.9) Benign essential hypertension Pure hypercholesterolemia Diabetes mellitus Coronary artery disease LUIS (obstructive sleep apnea) Chronic cough Degenerative disc disease Lung fibrosis Bronchial asthma Surgical History Hx of prostate biopsy History of esophagogastroduodenoscopy (EGD) Hx of colonoscopy S/P arterial stent Social History Housing: Apartment Alcohol intake: current Alcohol intake frequency: holidays/special occasions only Patient Tobacco Use Status: Never used Tobacco e-Cigarette/Vaping Use: Never Used Second Hand Smoke Exposure: No Substance Use Type: Marijuana service: No Current occupational status: disabled Cognitive needs: No Hearing needs: No Vision needs: Yes Review of Systems Const Denies headache(s) Eyes Denies loss of vision ENT Denies vertigo, Denies dizziness, Denies headache(s) and Denies sore throat Card Denies chest pain, Reports leg edema, Denies lightheadedness and Reports dyspnea on exertion Resp Reports cough, Denies hemoptysis, Reports dyspnea on exertion and Reports wheezing GI Denies abdominal pain, Denies melena, Denies constipation, Denies diarrhea and Denies vomiting Denies dysuria, Denies urinary frequency and Denies urinary urgency Musc Denies arthralgias, Denies joint swelling, Denies numbness and Denies tingling Neuro Denies Abnormal speech present, Denies behavioral changes, Denies vertigo, Denies dizziness, Denies headache(s), Denies loss of vision, Denies memory loss, Denies numbness and Denies tingling Psych Denies anxiety, Denies behavioral changes, Denies depression, Denies memory loss and Denies panic attacks Dale/Lymph Denies easy bleeding and Denies easy bruising Aller/Immun Reports wheezing Physical Exam Vital Signs: Last Vital Signs Pulse 70 11/24/24 13:36 BP 128/64 11/24/24 13:36 Pulse Ox 95 11/24/24 13:36 Oxygen Delivery Method Room Air 11/24/24 13:36 BMI result Body Mass Index 41.3 Const General: alert Neck Neck: Yes normal visual inspection, Yes full ROM and Yes no lymphadenopathy Chest Chest palpation & inspection: normal inspection of the chest Resp Effort & Inspection: normal respiratory effort and prolonged expiratory phase Auscultation: no rhonchi, no wheezes and diminished lung sounds Cardio Rate: regular rate Rhythm: regular rhythm Heart sounds: S1 normal heart sound present and S2 normal heart sound present GI Palpation (GI): Soft to palpation and nontender Auscultation: normal bowel sounds Skin General skin exam: rashes and/or lesions noted Neuro Speech: No Abnormal speech present Assessment & Plan Assessment & Plan (1) Asthma-COPD overlap syndrome: Code(s): J44.9 - Chronic obstructive pulmonary disease, unspecified Category: Medical (2) Pulmonary fibrosis: Code(s): J84.10 - Pulmonary fibrosis, unspecified Category: Medical (3) Chronic cough: Code(s): R05.3 - Chronic cough Category: Medical (4) LUIS (obstructive sleep apnea): Code(s): G47.33 - Obstructive sleep apnea (adult) (pediatric) Category: Medical (5) Hiatal hernia: Code(s): K44.9 - Diaphragmatic hernia without obstruction or gangrene Category: Medical (6) Pulmonary nodules: Comment: 8mm on the PET scan from [facility] Code(s): R91.8 - Other nonspecific abnormal finding of lung field Category: Medical (7) Asthma-COPD overlap syndrome: Code(s): J44.9 - Chronic obstructive pulmonary disease, unspecified Category: Medical (8) Prostate cancer: Code(s): C61 - Malignant neoplasm of prostate Category: Medical Plan stop Trelegy 200 start Anoro daily short-acting beta agonist as needed nasal spray continue singulair sleep elevated Continue with tobacco cessation. Needs to quit Pulmonary rehab May proceed with anesthesia and removal of his Lipoma. No respiratory limitations F/U 6-8 months Medications: New azelastine administer into each nostril 2 sprays intranasal BID 30 mL 6RF 30 days umeclidinium-vilanterol 62.5-25 mcg/actuation (Anoro Ellipta) 1 inh inhalation DAILY 60 ea 11RF J44.89 - Other specified chronic obstructive pulmonary disease Refilled albuterol sulfate 90 mcg/actuation (Ventolin HFA) 2 puffs inhalation Q6H PRN 18 ea 11RF for wheezing J45.40 - Moderate persistent asthma, uncomplicated, J84.10 - Pulmonary fibrosis, unspecified albuterol sulfate 2.5 mg (3 mL) inhalation BID 180 mL 11RF 30 days J44.9 - Chronic obstructive pulmonary disease, unspecified montelukast (Singulair) 10 mg PO BEDTIME 30 tabs 11RF 30 days J45.909 - Unspecified asthma, uncomplicated Coding Level of Care Code Est Pt Level 4 (75522) Complex EM visit Add On G2211 Diagnoses Asthma-COPD overlap syndrome J44.9 Pulmonary fibrosis J84.10 Chronic cough R05.3 LUIS (obstructive sleep apnea) G47.33 Hiatal hernia K44.9 Pulmonary nodules R91.8 Prostate cancer C61 Time Spent (min) 17
[2024-11-24 13:36] VITALS: BP 128/64; PULSE 70; O2SAT 95; BMI 41.3
== END 2024-11-24 14:13 | disposition home or self-care (01) ==
LOC: HO.HPS 13:23
PROVIDERS: PCP Internal Medicine; Visit Provider Hospitalist
DX: J44.9 Chronic obstructive pulmonary disease, unspecified (principal); J84.10 Pulmonary fibrosis, unspecified; R05.3 Chronic cough; G47.33 Obstructive sleep apnea (adult) (pediatric); K44.9 Diaphragmatic hernia without obstruction or gangrene; R91.8 Other nonspecific abnormal finding of lung field; C61 Malignant neoplasm of prostate
CPT/HCPCS: 99214; G2211

== ENCOUNTER 2024-12-14 15:52 | Emergency (ER) | payer OTHER, SELFPAY ==
--- NOTE | ~2024-12-14 | XR_ITS ---
EXAMINATION: XR CHEST CLINICAL INFORMATION: dyspnea COMPARISON: Chest 06/27/2024. TECHNIQUE: 2 views of the chest were obtained. FINDINGS: The lungs are expanded with increase bilateral parahilar interstitial markings similar previous study. No consolidation, mass or pleural effusion seen. Heart size and pulmonary vascularity is normal. No gross bony abnormality except for mild spondylosis. XR/XR chest 2V IMPRESSION: Bilateral parahilar increased interstitial markings. These are likely chronic and could represent underlying inflammatory or infectious etiology. Similar findings were seen on previous exam 06/23/2024. Electronically signed by: Cornel Mason MD 12/14/2024 04:29 PM EDT
[2024-12-14 16:03] VITALS: BP 154/84; PULSE 85; RESP 22; TEMP 36.7; O2SAT 95; BMI 39.3
--- NOTE | 2024-12-14 16:03 | ED.GENADULT ---
HPI - General Adult General Chief complaint: Dyspnea Stated complaint: asthma, ? bronchitis Time Seen by Provider: 12/14/24 19:24 Source: patient Mode of arrival: ambulatory Limitations: no limitations History of Present Illness ED Provider: Rush KNIGHT HPI narrative: The patient is a 59-year-old male with history of COPD and asthma presenting to the ED reporting since yesterday he has been experiencing increased chest congestion with nonpainful cough productive of white sputum and shortness of breath with dyspnea on exertion. The patient denies associated chest pain, pleurisy, nausea, vomiting, abdominal pain, fever/chills, recent sick contacts, or recent trauma. The patient reports he has been using his rescue inhaler and albuterol nebulizers without relief. Related Data Home Medications ?Medication ?Instructions ?Recorded ?Confirmed nebulizers 07/07/23 11/24/24 tamsulosin 0.4 mg capsule 0.4 mg PO BEDTIME 10/20/24 11/24/24 Previous Rx's ?Medication ?Instructions ?Recorded blood pressure test kit-large #1 ea 10/02/21 DISPOSABLE BED PADS #60 ea 06/22/23 rosuvastatin 40 mg tablet 40 mg PO DAILY #90 tabs 12/24/23 ezetimibe 10 mg tablet 10 mg PO DAILY #90 tabs 02/26/24 WHEELED WALKER #1 ea 04/29/24 Kneeling Scooter #1 ea 05/02/24 terazosin 5 mg capsule 5 mg PO BEDTIME 90 days #90 caps 05/10/24 BEDSIDE COMMODE #1 ea 06/02/24 TRANSFER TUB BENCH #1 ea 06/02/24 methocarbamol 750 mg tablet 750 mg PO Q8H PRN pain, moderate 06/27/24 #10 tabs nabumetone 750 mg tablet 750 mg PO BID PRN joint pain and 07/01/24 low back pain 30 days #60 tabs aspirin 81 mg tablet,delayed 81 mg PO DAILY 90 days #90 tabs 10/26/24 release metformin 500 mg tablet 250 mg (1/2 x 500 mg) PO DAILY 30 11/05/24 days #15 tabs enalapril maleate 20 mg tablet 20 mg PO DAILY #90 tabs 11/07/24 amlodipine 10 mg tablet 10 mg PO DAILY 90 days #90 tabs 11/23/24 albuterol sulfate 2.5 mg/3 mL 2.5 mg (3 mL) inhalation BID 30 11/24/24 (0.083 %) solution for nebulization days #180 mL albuterol sulfate 90 mcg/actuation 2 puff inhalation Q6H PRN for 11/24/24 aerosol inhaler (Ventolin HFA) wheezing #18 ea azelastine 137 mcg (0.1 %) nasal 2 spray intranasal BID 30 days #30 11/24/24 spray mL montelukast 10 mg tablet 10 mg PO BEDTIME 30 days #30 tabs 11/24/24 (Singulair) Anoro Ellipta 62.5 mcg-25 1 inh inhalation DAILY #60 ea 11/25/24 mcg/actuation powder for inhalation (umeclidinium-vilanterol) prednisone 20 mg tablet 60 mg (3 x 20 mg) PO DAILY 5 days 12/14/24 #15 tabs Allergies Allergy/AdvReac Type Severity Reaction Status Date / Time No Known Allergies Allergy Verified 12/14/24 16:06 Review of Systems Review of Systems: Yes all other systems are reviewed and are negative [facility] Past Medical History Medical History (Updated 12/14/24 @ 21:53 by Rush Lopez PA-C) Lipoma of left upper extremity Osteoarthritis of both hands Asthma-COPD overlap syndrome Personal history of colonic polyps Pre-op chest exam Left knee pain Annual physical exam Obese Pulmonary nodules Hiatal hernia Obesity (BMI 30-39.9) Benign essential hypertension Pure hypercholesterolemia Diabetes mellitus Coronary artery disease LUIS (obstructive sleep apnea) Chronic cough Degenerative disc disease Lung fibrosis Bronchial asthma Surgical History Hx of prostate biopsy History of esophagogastroduodenoscopy (EGD) Hx of colonoscopy S/P arterial stent Social History Social History Housing: Apartment Alcohol intake: current Alcohol intake frequency: holidays/special occasions only Patient Tobacco Use Status: Never used Tobacco e-Cigarette/Vaping Use: Never Used Second Hand Smoke Exposure: No Substance Use Type: Marijuana Advance Directives: No Advance Directives Information Provided: No Do you have a plan to hurt others: No Plan service: No Current occupational status: disabled Cognitive needs: No Hearing needs: No Vision needs: Yes Physical Exam ED Vital Signs: Vital Signs - 24 hr 12/14/24 16:03 12/14/24 19:31 12/14/24 20:02 Temperature 98.1 F 97.6 F 97.6 F Pulse Rate 85 80 80 Respiratory Rate 22 H 16 16 Blood Pressure 154/84 H 155/83 H 155/83 H Pulse Oximetry 95 98 98 Oxygen Delivery Method Room Air Room Air 12/14/24 21:05 Temperature Pulse Rate 74 Respiratory Rate 22 H Blood Pressure Pulse Oximetry Oxygen Delivery Method BMI result Body Mass Index 39.3 CONSTITUTIONAL: The patient appears non-toxic, well nourished and in no acute distress. Vital signs as documented. HEAD: Atraumatic, normocephalic. EYES: EOMs grossly intact, pupils equal, conjunctiva clear, no exudate. ENT: Nares patent, no discharge. Airway patent, no audible stridor, visible mucosa is pink and moist without noted lesions. NECK: Trachea is midline, no obvious masses or gross abnormalities. CHEST: Symmetric movement, normal appearance. LUNGS: LS present with bronchial breath sounds and diffuse expiratory wheezes bilaterally, no stridor, no appreciated rales or rhonchi. Non-labored work of breathing at rest in the exam stretcher on room air. CARDIAC: Regular Rhythm, S1/S2 appreciated, no murmurs, rubs or gallops. ABDOMEN: Abdomen soft and non-tender x4 quadrants, no palpable masses or organomegaly. : Deferred. EXTREMITIES: Normal tone, moves all extremities spontaneously without reported pain. No obvious acute injury or deformity noted. NEURO: Alert and oriented x3, CN II-XII appear grossly intact. Cerebellar Functioning grossly intact. No obvious sensory or motor deficits. Speech clear and appropriate. PSYCH: normal affect, appropriate eye contact, fluid speech, with appropriate response to questioning. No reported suicidality or homicidality. SKIN: Warm, dry, color appropriate, normal turgor. No rashes noted. Course Course Course Narrative: This is a rapid medical exam performed by Melissa Barrientos NP: Additional HPI, ROS, PE not included below will be deferred to primary provider. Patient is a 59-year-old Malian speaking male with history of asthma-COPD overlap syndrome, GERD, stented coronary artery, T2DM, pulmonary fibrosis, CAD, chronic cough presenting with shortness of breath since Raman. States he knows his body and it feels like bronchitis. Plan: EKG, viral serology, CXR Medications Administered Discontinued Medications Generic Name Dose Route Start Last Admin Trade Name Todd PRN Reason Stop Dose Admin Acetaminophen 975 mg 12/14/24 20:44 12/14/24 20:51 Acetaminophen 325 Mg Tablet PO 12/14/24 20:45 975 mg ONCE ONE Administration Albuterol Sulfate 5 mg/ 0 mg 12/14/24 21:02 12/14/24 21:05 Albuterol/Ipratropium 3 ml INHALE 12/14/24 21:03 1 each ONCE ONE Administration Ibuprofen 600 mg 12/14/24 20:44 12/14/24 20:51 Ibuprofen 600 Mg Tablet PO 12/14/24 20:45 600 mg ONCE ONE Administration Prednisone 60 mg 12/14/24 20:44 12/14/24 20:51 Prednisone 20 Mg Tablet PO 12/14/24 20:45 60 mg ONCE ONE Administration Medical Decision Making Medical Decision Making [facility] Narrative: 8:50 PM 12/14/2024 (Andrea KNIGHT): The patient is a 59-year-old male presenting to the ED for evaluation of worsening asthma symptoms not responding to his nebulizer and rescue inhaler. Patient in the ED is well-appearing, no evidence of acute respiratory distress, no accessory muscle use, lung sounds show bronchial breath sounds with diffuse expiratory wheezing. The patient's EKG is nonischemic, x-ray shows bilateral perihilar increased interstitial markings which are likely chronic and represent an underlying inflammatory disease, no focal consolidation. The patient's viral swabs are negative for flu, RSV, and COVID. At this time patient appears to be suffering from acute on chronic asthma exacerbation. The patient will be treated with prednisone, and DuoNeb. Pending improvement in symptoms patient will be appropriate for discharge home with 5 day prednisone burst. 9:50 PM 12/14/2024 (Andrea KNIGHT): Patient reports subjective improvement in cough and breathing following DuoNeb, the patient's lung sounds have dramatically improved and patient is maintaining normal oxygen saturation. The patient states he would prefer to be discharged home. The patient will be discharged with prednisone burst and instructions to follow up outpatient with PCP. Admission/Observation Consideration of admission/observation: Escalation of care including admission/observation considered Lab Data [facility] Lab Attestation statement: I reviewed the patient's lab results. Labs: Lab Results 12/14/24 Range/Units 16:48 Influenza Type A (PCR) NEGATIVE (Negative) Influenza Type B (PCR) NEGATIVE (Negative) RSV RNA Qual (PCR) NEGATIVE (Negative) SARS-CoV-2 RNA (RT-PCR) NEGATIVE (Negative) Independent Interpretation I performed an independent interpretation of an: EKG (EKG shows sinus rhythm with a rate of 79, no evidence of acute ischemia, no ST elevation, occasional PVCs, no other ectopy. QTC 417. Compared to previous on 06/27/2024 PVCs are new.) Radiology Impression Discussion of test interpretation with radiology: I have reviewed the radiologist's reading. Radiologist Impression: EXAMINATION: XR CHEST CLINICAL INFORMATION: dyspnea COMPARISON: Chest 06/27/2024. TECHNIQUE: 2 views of the chest were obtained. FINDINGS: The lungs are expanded with increase bilateral parahilar interstitial markings similar previous study. No consolidation, mass or pleural effusion seen. Heart size and pulmonary vascularity is normal. No gross bony abnormality except for mild spondylosis. XR/XR chest 2V IMPRESSION: Bilateral parahilar increased interstitial markings. These are likely chronic and could represent underlying inflammatory or infectious etiology. Similar findings were seen on previous exam 06/23/2024. Electronically signed by: Cornel Mason MD 12/14/2024 04:29 PM EDT Prescription Management I considered prescription management with: Antibiotic Discharge Plan Discharge Clinical Impression: Acute bronchitis Qualifiers: Bronchitis organism: unspecified organism Qualified Code(s): J20.9 - Acute bronchitis, unspecified Patient Disposition: Home, Self-Care Instructions: Acute Bronchitis (ED), Wheezing (ED) Additional Instructions: Marisa por elegir el [facility] [place] para sanchez atenci?n hoy. En ej momento, no hay indicaci?n de ingreso hospitalario ni de observaci?n continua en urgencias, y es seguro darle de atiya. Marii s?ntomas parecen estar relacionados con keyla exacerbaci?n aguda de sanchez enfermedad respiratoria restrictiva subyacente, probablemente causada por keyla infecci?n viral. Contin?e usando sanchez inhalador y nebulizador de albuterol seg?n lo prescrito. Contin?e tomando todos los medicamentos que le recetaron habitualmente. [place] prednisona seg?n lo prescrito hasta terminarla. Puede teodoro dosis alternas (escalonadas) de ibuprofeno 600 mg y Tylenol 1000 mg cada 4 horas seg?n sea necesario para cualquier dolor o tos adicional. Mant?ngase jeff hidratado para disolver la mucosidad y las secreciones, lo que le ayudar? a expulsar la flema de los pulmones. Descanse lo suficiente. Consulte con sanchez m?dico de cabecera para keyla reevaluaci?n, un manejo adicional de marii s?ntomas y atenci?n preventiva continua. Si no tiene un m?dico de cabecera, llame a [facility] al [phone] para asignarle jose de jesus nuevo. Mientras espera la asignaci?n de sanchez nuevo m?dico de cabecera, puede llamar a nuestra [facility] al [phone] para necesidades que no katia de emergencia. Regrese a urgencias si presenta un cambio repentino o grave en marii s?ntomas, fiebre superior a 38 ?C que no mejora con Tylenol o ibuprofeno, v?mitos recurrentes o cualquier otro s?ntoma o inquietud nuevo o que empeore. Thank you for choosing [facility] for your care today. At this time there is no indication for admission to the hospital or continued ED observation, and it is safe to discharge you home. Your symptoms appear to be related to an acute exacerbation of your underlying restrictive airway disease, likely caused by a viral infection. Please continue using your albuterol inhaler and albuterol nebulizer as prescribed. Please continue taking all regularly prescribed medications. Please take prednisone as prescribed until finished. You may take alternating (staggered) doses of ibuprofen 600mg and Tylenol 1000mg every 4 hours as needed for any additional pain or cough. Please stay well hydrated to loosen mucus and secretions, which will help you be able to cough up phlegm out of your lungs. Please get plenty of rest. Please follow up with your primary care physician for re-evaluation, additional management of your symptoms, and continued preventative care. If you do not have a primary care physician, please call the [facility] at [phone] to establish a new primary care physician. While waiting to establish your new primary care physician, you can call our [facility] at [phone] for non-emergency needs. Please return to the emergency department if you develop a severe or sudden change in your symptoms, a fever over 100.4 that does not improve with Tylenol or Ibuprofen, recurrent vomiting, or any other new or worsening symptoms or concerns. Prescriptions: New prednisone 20 mg tablet 60 mg PO DAILY 5 Days Qty: 15 0RF No Action rosuvastatin 40 mg tablet 40 mg PO DAILY Qty: 90 3RF ezetimibe 10 mg tablet 10 mg PO DAILY Qty: 90 3RF (DME) WHEELED WALKER See Rx Instructions .Route .MEDSUPPLY Qty: 1 0RF Rx Instructions: As directed (DME) BEDSIDE COMMODE See Rx Instructions .Route .MEDSUPPLY Qty: 1 0RF Rx Instructions: As directed (DME) TRANSFER TUB BENCH See Rx Instructions .Route .MEDSUPPLY Qty: 1 0RF Rx Instructions: As directed nabumetone 750 mg tablet 750 mg PO BID PRN (Reason: joint pain and low back pain) 30 Days Qty: 60 2RF Rx Instructions: Take with food aspirin 81 mg tablet,delayed release (DR/EC) 81 mg PO DAILY 90 Days Qty: 90 3RF metformin 500 mg tablet 250 mg PO DAILY 30 Days Qty: 15 2RF enalapril maleate 20 mg tablet 20 mg PO DAILY Qty: 90 1RF amlodipine 10 mg tablet 10 mg PO DAILY 90 Days Qty: 90 0RF umeclidinium-vilanterol [Anoro Ellipta] 62.5-25 mcg/actuation blister with device 1 inh inhalation DAILY Qty: 60 11RF methocarbamol 750 mg tablet 750 mg PO Q8H PRN (Reason: pain, moderate) Qty: 10 0RF (DME) blood pressure test kit-large Kit See Rx Instructions .Route Qty: 1 0RF Rx Instructions: As directed (DME) DISPOSABLE BED PADS See Rx Instructions .Route .MEDSUPPLY Qty: 60 12RF Rx Instructions: As directed (DME) Kneeling Scooter See Rx Instructions .ROUTE .MEDSUPPLY Qty: 1 0RF Rx Instructions: duration 99 days albuterol sulfate [Ventolin HFA] 90 mcg/actuation HFA aerosol inhaler 2 puff inhalation Q6H PRN (Reason: for wheezing) Qty: 18 11RF albuterol sulfate 2.5 mg /3 mL (0.083 %) solution for nebulization 2.5 mg inhalation BID 30 Days Qty: 180 11RF montelukast [Singulair] 10 mg tablet 10 mg PO BEDTIME 30 Days Qty: 30 11RF azelastine 137 mcg (0.1 %) spray,non-aerosol 2 spray intranasal BID 30 Days Qty: 30 6RF Rx Instructions: administer into each nostril (DME) nebulizers Misc See Rx Instructions .Route Rx Instructions: As directed terazosin 5 mg capsule 5 mg PO BEDTIME 90 Days Qty: 90 1RF tamsulosin 0.4 mg capsule 0.4 mg PO BEDTIME Referrals: Clayton Raza MD [Primary Care Provider, Internal Medicine] Clinical Impression: Acute bronchitis Print Language: Malian
--- NOTE | 2024-12-14 16:05 | ECG_ITS ---
Test Reason : DYSPNEA Blood Pressure : */* mmHG Vent. Rate : 79 BPM Atrial Rate : 79 BPM P-R Int : 152 ms QRS Dur : 82 ms QT Int : 364 ms P-R-T Axes : 72 48 45 degrees QTcB Int : 417 ms Sinus rhythm with occasional Premature ventricular complexes Possible Left atrial enlargement Borderline ECG When compared with ECG of 27-Jun-2024 12:26, Premature ventricular complexes are now Present Nonspecific T wave abnormality has replaced inverted T waves in Inferior leads Referred By: Mindy Barrientos Electronically Signed By: Lucian Art
[2024-12-14 17:52] LABS: Resp Syncy Virus RNA Qual PCR NEGATIVE (Negative); SARS COV2 PCR INHOUSE NEGATIVE (Negative)
[2024-12-14 19:31] VITALS: BP 155/83; PULSE 80; RESP 16; TEMP 36.4; O2SAT 98
--- NOTE | 2024-12-14 19:54 | PC.NURSE ---
pt v/s WNL, academy director at bedside. Pt states cough started Thursday with SOB. no pain reported.
[2024-12-14 20:02] VITALS: BP 155/83; PULSE 80; RESP 16; TEMP 36.4; O2SAT 98
--- NOTE | 2024-12-14 20:53 | PC.NURSE ---
pt medicated per JUL. respiratory will give nebulizer treatment
[2024-12-14 21:05] VITALS: PULSE 74; RESP 22; O2SAT 96
[2024-12-14] MEDS: Albuterol Sulfate 5 MG, Albuterol/Iprat 2.5/0.5MG 3 ML 3 ML INHALE (21:05)
== END 2024-12-15 07:07 | disposition home or self-care (01) ==
PROVIDERS: Registered Nurse Emergency; Emergency Provider Internal Medicine; PCP Internal Medicine
DX: J20.9 Acute bronchitis, unspecified (principal); R06.02 Shortness of breath; R94.31 Abnormal electrocardiogram [ECG] [EKG]; Z03.818 Encounter for observation for suspected exposure to other biological agents ruled out
CPT/HCPCS: 71046; 87637; 93005; 94640; 99284; 99285

== ENCOUNTER → 2024-12-14 16:05 | Outpatient (BNV) | payer OTHER, SELFPAY | PROVIDERS: PCP Internal Medicine; Visit Provider Radiology Diagnostic Radiology | DX: J84.9 Interstitial pulmonary disease, unspecified (principal) | CPT/HCPCS: 71046 ==

== ENCOUNTER → 2024-12-14 16:05 | Outpatient (BNV) | payer OTHER, SELFPAY | PROVIDERS: Emergency Provider Internal Medicine; PCP Internal Medicine; Visit Provider Internal Medicine Cardiovascular Disease | DX: I49.3 Ventricular premature depolarization (principal) | CPT/HCPCS: 93010 ==

== ENCOUNTER 2024-12-20 10:56 | Inpatient (IN) | payer OTHER, SELFPAY ==
[2024-12-20] VITALS (9 sets, daily range): BP systolic 122–164; BP diastolic 67–90; PULSE 80–95; RESP 18–25; TEMP 36.2–36.8; O2SAT 92–96; BMI 39.5
--- NOTE | ~2024-12-20 | US_ITS ---
CLINICAL HISTORY: pain Bilateral lower extremity venous duplex ultrasound Comparison: None available Findings: The visualized deep veins are fully compressible with normal flow. The right peroneal veins were not visualized. No popliteal cyst. Impression: No deep vein thrombosis. This document has been electronically signed by: Claudia Whipple MD on 12/20/2024 17:54:01
--- NOTE | ~2024-12-20 | XR_ITS ---
EXAMINATION: XR CHEST CLINICAL INFORMATION: sob COMPARISON: December 14, 2024 TECHNIQUE: 2 views of the chest were obtained. FINDINGS: Indistinct margins in the perihilar regions and patchy opacities in the inferior right perihilar/right middle lung lobe. No pleural effusion or pneumothorax. Cardiomediastinal silhouette size is normal. Multilevel thoracic and upper lumbar spondylosis. XR/XR chest 2V IMPRESSION: Acute on chronic airspace disease. No gross change. Electronically signed by: [place] Jim MD 12/20/2024 11:17 AM EDT
--- NOTE | ~2024-12-20 | XR_ITS ---
EXAMINATION: XR CHEST CLINICAL INFORMATION: Sob COMPARISON: Chest radiograph on December 20, 2024 TECHNIQUE: Frontal view of the chest was obtained. FINDINGS: No focal consolidation. No evidence of pulmonary edema. No pneumothorax or pleural effusion. Cardiomediastinal silhouette is similar to prior study. No acute osseous abnormality. XR/XR chest 1V IMPRESSION: No acute abnormality. Electronically signed by: Kevin Rojas MD 12/23/2024 11:10 AM EDT
--- NOTE | 2024-12-20 11:07 | ECG_ITS ---
Test Reason : sob Blood Pressure : */* mmHG Vent. Rate : 88 BPM Atrial Rate : 88 BPM P-R Int : 138 ms QRS Dur : 82 ms QT Int : 354 ms P-R-T Axes : 76 53 33 degrees QTcB Int : 428 ms Normal sinus rhythm Possible Left atrial enlargement Borderline ECG When compared with ECG of 14-Dec-2024 16:41, Premature ventricular complexes are no longer Present Referred By: Cheryl Sanderson Electronically Signed By: YOLI BERRIOS MD
--- NOTE | 2024-12-20 11:10 | ED_ITS ---
HPI - General Adult General Chief complaint: Upper Respiratory Symptoms Stated complaint: SOB Time Seen by Provider: 12/20/24 15:45 Source: patient, family (), RN notes reviewed, old records reviewed and mathematician research (Interpreting staff was brought into the room and the patient preferred to speak through his ) Mode of arrival: ambulatory Limitations: language barrier History of Present Illness ED Provider: Tasha HPI narrative: 59-year-old male with past medical history significant for COPD-asthma overlap syndrome, history of prostate cancer, leukopenia, coronary artery disease, peptic ulcer disease, GERD, type 2 diabetes, hyperlipidemia, hypertension, sleep apnea noncompliant with CPAP presents for evaluation of shortness of breath and wheezing. The patient was seen here on 12/14/2024 and diagnosed with bronchitis. He was discharged with prednisone which she reports he consistent with a course. He states that he is continuing to have cough and now has bilateral rib pain from coughing. His cough is dry. He endorses leg swelling bilaterally. He does reports that he had a previous left leg surgery in May but recently his right leg has been swelling as well Denies any fevers or chills. No nausea or vomiting Related Data Home Medications ?Medication ?Instructions ?Recorded ?Confirmed nebulizers 07/07/23 11/24/24 tamsulosin 0.4 mg capsule 0.4 mg PO BEDTIME 10/20/24 0 11/24/24 Previous Rx's ?Medication ?Instructions ?Recorded blood pressure test kit-large #1 ea 10/02/21 DISPOSABLE BED PADS #60 ea 06/22/23 rosuvastatin 40 mg tablet 40 mg PO DAILY #90 tabs 12/03 06/27 ezetimibe 10 mg tablet 10 mg PO DAILY #90 tabs 02/02 09/24 WHEELED WALKER #1 ea 04/29/24 Kneeling Scooter #1 ea 05/02/24 terazosin 5 mg capsule 5 mg PO BEDTIME 90 days #90 caps 05/10/24 BEDSIDE COMMODE #1 ea 06/02/24 TRANSFER TUB BENCH #1 ea 06/02/24 methocarbamol 750 mg tablet 750 mg PO Q8H PRN pain, mo derate 06/27/24 #10 tabs nabumetone 750 mg tablet 750 mg PO BID PRN joint pain and 07/01/24 low back pain 30 days #60 tabs aspirin 81 mg tablet,delayed 81 mg PO DAILY 90 days #9 0 tabs 10/26/24 release metformin 500 mg tablet 250 mg (1/2 x 500 mg) PO BERTO LY 30 11/05/24 days #15 tabs enalapril maleate 20 mg tablet 20 mg PO DAILY #90 tabs 11/07/24 amlodipine 10 mg tablet 10 mg PO DAILY 90 days #90 t abs 11/23/24 albuterol sulfate 2.5 mg/3 mL 2.5 mg (3 mL) inhalation BID 30 11/24/24 (0.083 %) solution for nebulization days #180 mL albuterol sulfate 90 mcg/actuation 2 puff inhalation Q 6H PRN for 11/24/24 aerosol inhaler (Ventolin HFA) wheezing #18 ea azelastine 137 mcg (0.1 %) nasal 2 spray intranasal BI D 30 days #30 11/24/24 spray mL montelukast 10 mg tablet 10 mg PO BEDTIME 30 days #30 tabs 11/24/24 (Singulair) Anoro Ellipta 62.5 mcg-25 1 inh inhalation DAILY #60 e a 11/25/24 mcg/actuation powder for inhalation (umeclidinium-vilanterol) prednisone 20 mg tablet 60 mg (3 x 20 mg) PO DAILY 5 days 12/14/24 #15 tabs Allergies Allergy/AdvReac Type Severity Reaction Status Date / Time No Known Allergies Allergy Verified 12/20/24 11:07 Review of Systems 2 Constitutional: Constitutional: Denies body ache(s), Denies chills, Reports fatigue and Denies fever(s) ENT: Denies vertigo and Denies dizziness Cardiovascular: Cardiovascular: Reports dyspnea and Reports dyspnea on exertion Respiratory: Respiratory: Reports chest congestion, Reports cough, Reports pain with cough, Reports dyspnea, Reports dyspnea on exertion and Reports wheezing Gastrointestinal: Gastrointestinal: Denies abdominal pain, Denies nausea and Denies vomiting Musculoskeletal: Musculoskeletal: Denies back pain Integumentary/Breasts: Skin/Breast: Denies rash Neurologic: Denies vertigo and Denies dizziness Psychiatric: Psychiatric: Denies anxiety Endocrine: Endocrine: Reports fatigue Allergic/Immunologic: Allergic/Immunologic: Reports wheezing PMFSH Past Medical History Medical History (Updated 12/20/24 @ 18:15 by Daniel Cordova) Lipoma of left upper extremity Osteoarthritis of both hands Asthma-COPD overlap syndrome Personal history of colonic polyps Pre-op chest exam Left knee pain Annual physical exam Obese Pulmonary nodules Hiatal hernia Obesity (BMI 30-39.9) Benign essential hypertension Pure hypercholesterolemia Diabetes mellitus Coronary artery disease LUIS (obstructive sleep apnea) Chronic cough Degenerative disc disease Lung fibrosis Bronchial asthma Surgical History Hx of prostate biopsy History of esophagogastroduodenoscopy (EGD) Hx of colonoscopy S/P arterial stent Social History Social History Housing: Apartment Unable to assess alcohol history related to: Unknown Alcohol intake: current Alcohol intake frequency: holidays/special occasions only Patient Tobacco Use Status: Never used Tobacco Smoked in Last 30 Days: No e-Cigarette/Vaping Use: Never Used Second Hand Smoke Exposure: No Substance Use Type: Marijuana Advance Directives: No Advance Directives Information Provided: No Do you have a plan to hurt others: No Plan service: No Current occupational status: disabled Cognitive needs: No Hearing needs: No Vision needs: Yes Physical Exam ED Vital Signs: Vital Signs - 24 hr 12/20/24 11:01 12/20/24 11:40 12/20/24 16:07 Temperature 98.1 F Pulse Rate 95 92 Respiratory Rate 20 20 Blood Pressure 124/67 Pulse Oximetry 92 96 Oxygen Delivery Method Room Air Room Air 12/20/24 16:07 12/20/24 16:23 12/20/24 17:02 Temperature Pulse Rate 80 81 Respiratory Rate 24 H 18 Blood Pressure 141/77 H Pulse Oximetry 96 95 Oxygen Delivery Method Room Air Room Air 12/20/24 17:02 Temperature 98.2 F Pulse Rate 82 Respiratory Rate 21 H Blood Pressure 122/71 Pulse Oximetry 94 Oxygen Delivery Method Room Air BMI result Body Mass Index 39.5 Const General: healthy appearing, comfortable, no acute distress, alert and awake Nutritional Appearance: well nourished Orientation/consciousness: patient oriented x3 HENMT Head: Yes normocephalic and Yes atraumatic Eyes Eyelids: Yes eyelids normal Conjunctivae: conjunctivae normal Sclerae: sclerae normal Corneas: corneas normal Pupils: Equal, round and reactive pupils present EOM: EOMs intact bilaterally Neck Neck: Yes full ROM Resp Effort & Inspection: able to speak in complete sentences and not labored Auscultation: not clear to auscultation bilaterally, rhonchi and wheezes (Throughout) Cardio Other: 2+ pitting edema bilaterally, right slightly greater than left GI Inspection: No distended Palpation (GI): Soft to palpation, not firm, nontender, no guarding and not rigid Skin General skin exam: elasticity normal Neuro General: patient oriented x3 Cranial nerves: Yes Equal, round and reactive pupils present and Yes Bilaterally intact EOM present Cognition (Neuro): normal cognition Extrem Other: Moving all extremities well without any obvious deformities Course Course Course Narrative: This is a Rapid Medical Examination (RME) performed by Andrea Sanderson PA-C in triage. Full HPI, ROS, assessment and treatment plan per primary provider in the Main ED. Hx: 59 yo M hx of asthma-COPD overlap syndrome, GERD, stented coronary artery, T2DM, pulmonary fibrosis, CAD here for eval of worsening productive cough and SOB x1 wk. seen here on 12/14/24, diagnosed w/ bronchitis and dc home on prednisone. no abx. PE/vitals: rhonchi throughout. Plan: labs, ekg, cxr, viral swabs Medications Administered Generic Name Dose Route Start Last Admin Trade Name Freq PRN Reason Stop Dose Admin Magnesium Sulfate 2 gm in 50 mls @ 25 mls/hr 12/20/24 16:16 12/20/24 16:44 Magnesium Sulfate/H2o IV 12/20/24 18:15 25 mls/hr ONCE ONE Administration Discontinued Medications Generic Name Dose Route Start Last Admin Trade Name Freq PRN Reason Stop Dose Admin Albuterol Sulfate 5 mg/ 0 mg 12/20/24 11:35 12/20/24 11:35 Albuterol/Ipratropium 3 ml INHALE 12/20/24 11:36 7.5 each ONCE ONE Administration Albuterol Sulfate 2.5 mg/ 0 mg 12/20/24 16:19 12/20/24 16:22 Albuterol/Ipratropium 3 ml INHALE 12/20/24 16:20 5 dose ONCE ONE Administration Methylprednisolone Sodium Succinate 125 mg 12/20/24 16:16 12/20/24 16:44 Methylprednisolone Sod Succ 125 Mg/2 Ml Vial IVPUSH 12/20/24 16:17 125 mg ONCE ONE Administration Medical Decision Making Medical Decision Making MDM Narrative: 59-year-old male presents for evaluation of shortness of breath and wheezing. His vital signs are stable. On exam he does have diffuse rhonchi and wheezing. His respiratory rate is around 20 and 22 in his oxygen saturation on arrival is 92% on room air. The patient does carry diagnosis of both asthma and COPD. He denies any fevers but endorses rib pain with coughing. He also has bilateral leg swelling and a recent orthopedic surgery. For this reason I ordered ultrasounds of his lower extremities to rule out DVTs in the D-dimer. The D- dimer and that it resulting negative. Therefore low probability for thromboembolic disease of the chest. The patient's EKG is normal sinus rhythm with possible left atrial enlargement. The ventricular rate of [address] segment elevation or depressions. No significant change when compared to December 16, 2024. Given the patient's continued wheezing, shortness of breath and low oxygen saturation on room air he was given IV Solu-Medrol, magnesium and 2 different duo nebs. After this treatment the patient reported feeling no better, he did ambulate in his oxygen saturation dropped to 89%. I discussed possible treatment with the patient and he would like to be admitted as this is the 2nd visit. We will discuss with the hospitalist. There was no evidence of sepsis Differential Diagnosis Differential Diagnoses: The differential diagnosis associated with the presentation includes Has been exacerbation Acute hypoxic respiratory failure Pneumonia Bronchitis CHF PE DVT and Admission/Observation Consideration of admission/observation: Escalation of care including admission/observation considered Lab Data [facility] Lab Attestation statement: I reviewed the patient's lab results. No leukocytosis or anemia. Normal platelet count. No significant electrolyte abnormalities. Troponin undetectable 12/20/24 11:28 12/20/24 11:28 Labs: Lab Results 12/20/24 12/20/24 12/20/24 Range/Units 11:28 11:42 16:55 WBC 8.1 (4.8-10.8) X10*3/uL RBC 4.75 (4.60-5.80) X10*6/uL Hgb 14.2 (14.0-18.0) g/dl Hct 42.7 (42.0-52.0) % MCV 89.9 (80.0-98.0) fL MCH 29.9 (27.0-33.0) pg MCHC 33.3 (31.0-36.0) g/dl RDW 16.6 H (11.0-16.0) % Plt Count 215 (160-400) X10*3/uL MPV 10.1 (9.4-12.4) fL Immature Gran % (Auto) 0.5 H (0.0-0.4) % Neut % (Auto) 54.1 (45-73) % Lymph % (Auto) 31.9 (20-40) % [place] % (Auto) 12.5 H (2-11) % Eos % (Auto) 0.9 (0-4) % Baso % (Auto) 0.1 (0-2) % Lymph # (Auto) 2.6 (1.2-4.9) X10*3/uL [place] # (Auto) 1.0 (0.1-1.2) X10*3/uL Eos # (Auto) 0.1 (0.0-0.4) X10*3/uL Baso # (Auto) 0.0 (0.0-0.2) X10*3/uL Abs Immat Gran (auto) 0.04 H (0.00-0.03) X10*3/uL Absolute Neuts (auto) 4.4 (2.0-8.3) x10*3/uL Absolute Nucleated RBC 0.000 (0.0-0.012) X10*3/uL Nucleated RBC % (auto) 0.0 (0.0-0.2) /100WBC D-Dimer High Sensitivty 169 NG/ML VBG pH 7.50 H (7.32-7.43) VBG pCO2 34 mmHg VBG pO2 140 mmHg VBG HCO3 27 H (22-26) mmol/L VBG O2 Saturation 100.0 % VBG Base Excess 4.6 mmol/L Sodium 141 (135-145) mmol/L Potassium 3.8 (3.3-5.1) mmol/L Chloride 105 (96-108) mmol/L Carbon Dioxide 27 (22-29) mmol/L Anion Gap 13 (12-20) BUN 19 H (9-16) mg/dL Creatinine 0.92 (0.5-1.4) mg/dL Estim Creat Clear Calc 113.2 Estimated GFR > 60 Random Glucose 105 (60-115) mg/dL Calcium 8.2 L (8.4-10.2) mg/dL Magnesium 2.1 (1.6-2.6) mg/dL Total Bilirubin 0.3 (0.0-1.0) mg/dL AST 41 H (5-37) U/L ALT 54 H (0-40) U/L Alkaline Phosphatase 68 (39-117) U/L Troponin I High Sens < 2.7 (<3.5-35.0) ng/L B-Natriuretic Peptide 14 (<100) pg/mL Total Protein 6.9 (6.5-8.0) g/dL Albumin 4.1 (3.5-5.0) g/dL Influenza Type A (PCR) NEGATIVE (Negative) Influenza Type B (PCR) NEGATIVE (Negative) RSV RNA Qual (PCR) NEGATIVE (Negative) SARS-CoV-2 RNA (RT-PCR) NEGATIVE (Negative) Independent Interpretation I performed an independent interpretation of an: EKG (As above, normal sinus rhythm with a rate of [address] segment elevation or depression), Plain X-Ray and Ultrasound Interpretation: Findings: The visualized deep veins are fully compressible with normal flow. The right peroneal veins were not visualized. No popliteal cyst. Impression: No deep vein thrombosis. This document has been electronically signed by: Claudia Whipple MD on 12/20/2024 17:54:01 Radiology Impression Discussion of test interpretation with radiology: I have reviewed the radiologist's reading. Radiologist Impression: FINDINGS: Indistinct margins in the perihilar regions and patchy opacities in the inferior right perihilar/right middle lung lobe. No pleural effusion or pneumothorax. Cardiomediastinal silhouette size is normal. Multilevel thoracic and upper lumbar spondylosis. XR/XR chest 2V IMPRESSION: Acute on chronic airspace disease. No gross change. Electronically signed by: [place] Jim MD 12/20/2024 11:17 AM EDT Discharge Plan Discharge Clinical Impression: Asthma exacerbation Patient Disposition: Admitted As Inpatient Print Language: [place]
[2024-12-20] MEDS: Albuterol Sulfate 5 MG, Albuterol/Iprat 2.5/0.5MG 3 ML 3 ML INHALE (11:35)
[2024-12-20 11:43] LABS: MANUAL DIFF FLAG NO
[2024-12-20 11:45] LABS: Venous Blood Gas Refer to POC result
[2024-12-20 11:46] LABS: VBG HCO3 27 mmol/L (22-26); VBG O2 % Saturation 100.0 %
[2024-12-20 11:49] LABS: Hematocrit 42.7 % (42.0-52.0); Hemoglobin 14.2 g/dl (14.0-18.0); Imm Gran Abs Auto 0.04 X10*3/uL (0.00-0.03); Imm Gran Pct Auto 0.5 % (0.0-0.4); Lymphocytes Absolute Auto 2.6 X10*3/uL (1.2-4.9); Mean Corpuscular HGB Conc 33.3 g/dl (31.0-36.0); Mean Corpuscular Hemoglobin 29.9 pg (27.0-33.0); Mean Corpuscular Volume 89.9 fL (80.0-98.0); NRBC Abs Auto 0.000 X10*3/uL (0.0-0.012); NRBC Pct Auto 0.0 /100WBC (0.0-0.2); Platelet Count 215 X10*3/uL (160-400); Red Blood Count 4.75 X10*6/uL (4.60-5.80); White Blood Count 8.1 X10*3/uL (4.8-10.8)
[2024-12-20 12:10] LABS: Alanine Aminotransferase 54 U/L (0-40); Albumin Level 4.1 g/dL (3.5-5.0); Alkaline Phosphatase 68 U/L (39-117); Anion Gap 13 (12-20); Aspartate Amino Transferase 41 U/L (5-37); Blood Urea Nitrogen 19 mg/dL (9-16); Calcium 8.2 mg/dL (8.4-10.2); Carbon Dioxide 27 mmol/L (22-29); Chloride 105 mmol/L (96-108); Creatinine Clr Calc Pharmacy 113.2; Estimated Glomerular Filt Rate > 60; Magnesium 2.1 mg/dL (1.6-2.6); Potassium 3.8 mmol/L (3.3-5.1); Sodium 141 mmol/L (135-145); Total Protein 6.9 g/dL (6.5-8.0)
[2024-12-20 12:12] LABS: B Type Natriuretic Peptide 14 pg/mL (<100)
[2024-12-20 12:21] LABS: Resp Syncy Virus RNA Qual PCR NEGATIVE (Negative); SARS COV2 PCR INHOUSE NEGATIVE (Negative)
[2024-12-20 12:25] LABS: Troponin-I High Sensitivity < 2.7 ng/L (<3.5-35.0)
[2024-12-20] MEDS: Albuterol Sulfate 2.5 MG, Albuterol/Iprat 2.5/0.5MG 3 ML 3 ML INHALE (16:22)
[2024-12-20] MEDS: Magnesium Sulfate/H2O 2 GM/50 ML PIGGYBACK IV (16:44)
[2024-12-20 17:09] LABS: D Dimer High Sensitivity 169 NG/ML
--- NOTE | 2024-12-20 17:56 | PC.NURSE ---
Pt ambulated with this RN in hallway to monitor SpO2 on RA. Pt with steady gait. O2 sats dropped to %89 RA briefly but otherwise maintained %93-95 RA.
--- NOTE | 2024-12-20 18:24 | PC.NURSE ---
Pt to be admitted. IVABx initiated, no blood cultures needed prior to abx per provider. VSS. NAD. [place] given.
--- NOTE | 2024-12-20 19:00 | P.HPHOSP_ITS ---
History of Present Illness Date of Service: 12/20/24 Chief Complaint: dyspnea This is a 59-year-old male with pertinent history of asthma/COPD overlap syndrome not on home oxygen, prostate cancer on radiotherapy, LUIS noncompliant with CPAP, hypertension, lnw-[id number] diabetes mellitus, mixed hyperlipidemia, BPH who presents to the emergency department for evaluation of dyspnea. History obtained with the help of healthcare interpreter. His symptoms started about 7 days prior to presentation and have been progressive. Patient was seen in the ER on 12/14/24 and was discharged on p.o. steroids. Patient states he continued having symptoms and hence presented to present to the ER. He has been having nonproductive cough, wheezing and dyspnea which was worse with exertion. No lower extremity leg swelling, orthopnea or PND. He states he has CPAP at home but is noncompliant. Does not smoke cigarettes. No fever, chills, palpitations, abdominal pain, changes in urinary or bowel habits. In the emergency department, patient with continued wheezing despite multiple DuoNeb treatments Review of Systems 2 Constitutional: Constitutional: Reports fatigue and Reports malaise Cardiovascular: Cardiovascular: Reports dyspnea on exertion Respiratory: Respiratory: Reports cough, Reports pain with cough, Reports dyspnea on exertion and Reports wheezing Gastrointestinal: Gastrointestinal: Reports no additional gastrointestinal complaints Genitourinary: Genitourinary: Reports no additional male genitourinary complaints Endocrine: Endocrine: Reports fatigue Allergic/Immunologic: Allergic/Immunologic: Reports wheezing [facility] Medical History (Updated 12/20/24 @ 19:02 by Sandip Muniz MD) Lipoma of left upper extremity Osteoarthritis of both hands Asthma-COPD overlap syndrome Personal history of colonic polyps Pre-op chest exam Left knee pain Annual physical exam Obese Pulmonary nodules Hiatal hernia Obesity (BMI 30-39.9) Benign essential hypertension Pure hypercholesterolemia Diabetes mellitus Coronary artery disease LUIS (obstructive sleep apnea) Chronic cough Degenerative disc disease Lung fibrosis Bronchial asthma Surgical History Hx of prostate biopsy History of esophagogastroduodenoscopy (EGD) Hx of colonoscopy S/P arterial stent Social History Housing: Apartment Unable to assess alcohol history related to: Unknown Alcohol intake: current Alcohol intake frequency: holidays/special occasions only Patient Tobacco Use Status: Never used Tobacco Smoked in Last 30 Days: No e-Cigarette/Vaping Use: Never Used Second Hand Smoke Exposure: No Substance Use Type: Marijuana Advance Directives: No Advance Directives Information Provided: No Do you have a plan to hurt others: No Plan service: No Current occupational status: disabled Cognitive needs: No Hearing needs: No Vision needs: Yes Meds Allergies Allergy/AdvReac Type Severity Reaction Status Date / Time No Known Allergies Allergy Verified 12/20/24 11:07 Active Medications: Current Medications Azithromycin 500 mg/ Sodium (Chloride) 250 mls @ 125 mls/hr IV ONCE ONE Stop: 12/20/24 20:02 Last Admin: 12/20/24 18:24 Dose: 125 mls/hr Home Medications ?Medication ?Instructions ?Recorded ?Confirmed ?Last Taken ?Type nebulizers 07/07/23 11/24/24 Unknown H istory tamsulosin 0.4 mg capsule 0.4 mg PO BEDTIME 10/20/24 0 11/24/24 Unknown History Physical Exam 2 Vital Signs and Narrative: Vital Signs: Last Vital Signs Temp 98.2 F 12/20/24 17:02 Pulse 82 12/20/24 17:02 Resp 21 H 12/20/24 17:02 BP 122/71 12/20/24 17:02 Pulse Ox 94 12/20/24 17:02 O2 Del Method Room Air 12/20/24 17:02 BMI result Body Mass Index 39.5 Const: Other: Middle-aged male lying in bed in mild distress Neck supple, no JVD Regular rate and rhythm, S1-S2 heard Bilateral wheezing without crackles Abdomen soft nontender, no guarding, no rigidity Patient is awake, alert and oriented to self, place, time and person ; no focal motor deficit Psych: Normal mood No pedal edema Results Labs 12/20/24 11:28 12/20/24 11:28 Labs: Laboratory Results - last 24 hr 12/20/24 12/20/24 12/20/24 11:28 11:42 16:55 MCV 89.9 MCH 29.9 MCHC 33.3 RDW 16.6 H Plt Count 215 MPV 10.1 Immature Gran % (Auto) 0.5 H Neut % (Auto) 54.1 Lymph % (Auto) 31.9 [place] % (Auto) 12.5 H Eos % (Auto) 0.9 Baso % (Auto) 0.1 Lymph # (Auto) 2.6 [place] # (Auto) 1.0 Eos # (Auto) 0.1 Baso # (Auto) 0.0 Abs Immat Gran (auto) 0.04 H Absolute Neuts (auto) 4.4 Absolute Nucleated RBC 0.000 Nucleated RBC % (auto) 0.0 D-Dimer High Sensitivty 169 VBG pH 7.50 H VBG pCO2 34 VBG pO2 140 VBG HCO3 27 H VBG O2 Saturation 100.0 VBG Base Excess 4.6 Anion Gap 13 Estim Creat Clear Calc 113.2 Estimated GFR > 60 Random Glucose 105 Calcium 8.2 L Magnesium 2.1 Total Bilirubin 0.3 AST 41 H ALT 54 H Alkaline Phosphatase 68 B-Natriuretic Peptide 14 Total Protein 6.9 Albumin 4.1 Influenza Type A (PCR) NEGATIVE Influenza Type B (PCR) NEGATIVE RSV RNA Qual (PCR) NEGATIVE SARS-CoV-2 RNA (RT-PCR) NEGATIVE Imaging Radiologist's Impressions: Impressions Chest X-Ray 12/20/24 10:16 IMPRESSION: Acute on chronic airspace disease. No gross change. Electronically signed by: [place] Jim MD 12/20/2024 11:17 AM EDT RP Assessment and Plan (1) Acute respiratory distress: Status: Acute Plan This is a 59-year-old male with pertinent history of asthma/COPD overlap syndrome not on home oxygen, prostate cancer on radiotherapy, LUIS noncompliant with CPAP, hypertension, lmf-rvrrdzw-iemupmxhp diabetes mellitus, mixed hyperlipidemia, BPH who presents to the emergency department for evaluation of dyspnea. #. Acute respiratory distress due to acute exacerbation of asthma/COPD overlap syndrome: Will admit patient and initiate IV steroids. Scheduled and p.r.n. DuoNebs. Continue home inhaler. #. LUIS: Noncompliant with CPAP #. Hypertension: Continue home antihypertensives #. Rmp-agzftqz-qzitkvvgp diabetes mellitus: Initiating Accu-Cheks with sliding scale insulin #. Mixed hyperlipidemia: On statin DVT prophylaxis: Lovenox Full code Diet: Cardiac diet Quality Stroke Does the patient have a stroke diagnosis?: No VTE Prior VTE?: No VTE Risk Level:: Medical - moderate - high VTE Device Contraindication: Treatment Not Indicated VTE Drug Contraindication: N/A - Med Ordered
[2024-12-20] MEDS: Albuterol/Iprat 2.5/0.5MG 3 ML AMPUL.NEB INHALE (19:42)
[2024-12-20 20:32] LABS: Glucose, Whole Blood 182 mg/dL (60-115)
--- NOTE | 2024-12-20 22:11 | PHA.MEDREC ---
Addendum entered by Isael Peterson, PharmD 12/20/24 22:33: MED REC CHECKED BY [facility] Original Note: Pharmacy Consult ? Medication Reconciliation Pharmacy has completed the medication reconciliation. Spoke with pt spouse on pt phone and she was able to confirm the pt medications. Pt confirmed he finished the Prednisone regimen yesterday.
[2024-12-20] MEDS: 0.9 % Sodium Chloride Flush 3 ML SYRINGE IVFLUSH (22:49)
[2024-12-20] MEDS: guaiFEN/Codeine SF 200/20/10ML 10 ML LIQUID PO (22:51)
[2024-12-21] VITALS (7 sets, daily range): BP systolic 102–137; BP diastolic 59–78; PULSE 70–95; RESP 18; TEMP 36–36.1; O2SAT 93–96
[2024-12-21 06:24] LABS: MANUAL DIFF FLAG NO
[2024-12-21 06:32] LABS: Hematocrit 42.4 % (42.0-52.0); Hemoglobin 14.5 g/dl (14.0-18.0); Imm Gran Abs Auto 0.06 X10*3/uL (0.00-0.03); Imm Gran Pct Auto 0.5 % (0.0-0.4); Lymphocytes Absolute Auto 1.2 X10*3/uL (1.2-4.9); Mean Corpuscular HGB Conc 34.2 g/dl (31.0-36.0); Mean Corpuscular Hemoglobin 30.1 pg (27.0-33.0); Mean Corpuscular Volume 88.0 fL (80.0-98.0); NRBC Abs Auto 0.000 X10*3/uL (0.0-0.012); NRBC Pct Auto 0.0 /100WBC (0.0-0.2); Platelet Count 244 X10*3/uL (160-400); Red Blood Count 4.82 X10*6/uL (4.60-5.80); White Blood Count 12.2 X10*3/uL (4.8-10.8)
[2024-12-21 06:54] LABS: Anion Gap 14 (12-20); Blood Urea Nitrogen 17 mg/dL (9-16); Calcium 8.3 mg/dL (8.4-10.2); Carbon Dioxide 25 mmol/L (22-29); Chloride 104 mmol/L (96-108); Creatinine Clr Calc Pharmacy 131.9; Estimated Glomerular Filt Rate > 60; Potassium 4.4 mmol/L (3.3-5.1); Sodium 139 mmol/L (135-145)
--- NOTE | 2024-12-21 07:24 | PC.NURSE ---
Pt had multiple home medication in one pill bottle, placed in medicine bag, and placed in patient specific bin. LARISSA Gil made aware.
[2024-12-21 07:55] LABS: Glucose, Whole Blood 144 mg/dL (60-115)
[2024-12-21] MEDS: Albuterol/Iprat 2.5/0.5MG 3 ML AMPUL.NEB INHALE ×3 (08:44→20:36)
--- NOTE | 2024-12-21 09:07 | MHC.CM.PN ---
Addendum entered by Aisha Sherman 12/21/24 09:14: PCP is Dr Clayton Raza. A HCP is on file. Original Note: ANAIS 12/21/24 MAle 59 DX COPD Asthma Patient lives with his . Independent with ADLs. He uses a cane, unsteady gait r/t ankle surgery DME Cane DM supplies, nebulizer. CPAP non compliant DP home self care. Patient will arrange for his to provide transportation home at discharge. 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
[2024-12-21] MEDS: Milk of Magnesia 30 ML ORAL.SUSP PO (10:24)
[2024-12-21] MEDS: guaiFEN/Codeine SF 200/20/10ML 10 ML LIQUID PO ×2 (10:24→20:57)
[2024-12-21 11:23] LABS: Glucose, Whole Blood 187 mg/dL (60-115)
--- NOTE | 2024-12-21 13:12 | HO.PM.IMPN ---
Subjective Subjective Date of Service: 12/21/24 Interval History: Remains short of breath essentially no improvement since admission. Able to speak in short sentences Review of Systems Denies chest pain Admits to shortness of breath with minimal improvement Denies nausea vomiting diarrhea Denies fever chills Physical Exam Vital Signs: Vital Signs: Last Vital Signs Temp 96.8 F 12/21/24 08:00 Pulse 78 12/21/24 08:40 Resp 18 12/21/24 08:40 BP 127/78 12/21/24 08:00 Pulse Ox 95 12/21/24 08:00 O2 Del Method Room Air 12/21/24 08:00 BMI result Body Mass Index 39.5 Const: Other: Awake alert no acute distress Resp: Other: Diminished at bases with dense expiratory wheezes throughout Cardio: Other: No S4; positive S1-S2; no S3 murmurs rubs or gallops GI: Other: Soft nontender nondistended normoactive bowel sounds Extrem: Other: No edema bilaterally Objective Data Active Medications Acetaminophen (Acetaminophen 325 Mg Tablet) 650 mg PO Q6H PRN PRN Reason: Pain, Mild 1-3,fever,headache Last Admin: 12/21/24 10:24 Dose: 650 mg Documented By: ALISON Albuterol/Ipratropium (Albuterol/Iprat 2.5/0.5mg 3 Ml Ampul.Neb) 3 ml INHALE Q4H PRN PRN Reason: Shortness of Breath/Wheezing Albuterol/Ipratropium (Albuterol/Iprat 2.5/0.5mg 3 Ml Ampul.Neb) 3 ml INHALE RQ4H WHILE AWAKE [facility] Last Admin: 12/21/24 11:18 Dose: Not Given Documented By: TAMIKO Non-Admin Reason: Patient Asleep Benzonatate (Benzonatate 100 Mg Capsule) 100 mg PO TID PRN PRN Reason: Cough Calcium Carbonate (Calcium Carbonate 750 Mg Tab.Chew) 750 mg PO Q4H PRN PRN Reason: Heartburn Dextrose (Dextrose 50 % 25 Gm/50 Ml Syringe) 25 gm IVPUSH Q15M PRN; Protocol PRN Reason: per Hypoglycemia Standing Ord. Enoxaparin Sodium (Enoxaparin Sodium 40 Mg/0.4 Ml Syringe) 40 mg SUBCUT Q24H [facility] Last Admin: 12/20/24 19:41 Dose: 40 mg Documented By: RELL Glucose (Glucose Gel 15 Gm Gel..Gram.) 15 gm PO Q15M PRN; Protocol PRN Reason: per Hypoglycemia Standing Ord. Guaifenesin/Codeine Phosphate (Guaifen/Codeine Sf 200/20/10ml 10 Ml Liquid) 10 ml PO Q4H PRN PRN Reason: Cough Last Admin: 12/21/24 10:24 Dose: 10 ml Documented By: ALISON Insulin Human Lispro (Insulin Lispro 100 Unit/Ml 3 Ml Vial) 0 unit SUBCUT QIDACHS [facility]; Protocol Last Admin: 12/21/24 11:48 Dose: 2 unit Documented By: ALISON Magnesium Hydroxide (Milk Of Magnesia 30 Ml Oral.Susp) 30 ml PO DAILY PRN PRN Reason: Constipation Last Admin: 12/21/24 10:24 Dose: 30 ml Documented By: ALISON Melatonin (Melatonin 3 Mg Tablet) 6 mg PO BEDTIME PRN PRN Reason: Insomnia Methylprednisolone Sodium Succinate (Methylprednisolone Sod Succ 125 Mg/2 Ml Vial) 60 mg IVPUSH Q6H [facility] Last Admin: 12/21/24 10:24 Dose: 60 mg Documented By: ALISON Ondansetron HCl (Ondansetron Hcl 4 Mg/2 Ml Vial) 4 mg IVPUSH Q8H PRN PRN Reason: Nausea and Vomiting Sodium Chloride (0.9 % Sodium Chloride Flush 3 Ml Syringe) 3 ml IVFLUSH QSHIFT [facility] Last Admin: 12/21/24 07:21 Dose: Not Given Documented By: ALISON Non-Admin Reason: Previously Administered Labs 12/21/24 05:46 12/21/24 05:46 Labs: Laboratory Results - last 24 hr 12/20/24 12/20/24 12/20/24 11:42 16:55 20:28 MCV MCH MCHC RDW Plt Count MPV Immature Gran % (Auto) Neut % (Auto) Lymph % (Auto) [place] % (Auto) Eos % (Auto) Baso % (Auto) Lymph # (Auto) [place] # (Auto) Eos # (Auto) Baso # (Auto) Abs Immat Gran (auto) Absolute Neuts (auto) Absolute Nucleated RBC Nucleated RBC % (auto) D-Dimer High Sensitivty 169 VBG pH 7.50 H VBG pCO2 34 VBG pO2 140 VBG HCO3 27 H VBG O2 Saturation 100.0 VBG Base Excess 4.6 Anion Gap Estim Creat Clear Calc Estimated GFR POC Glucose 182 H Random Glucose Calcium 12/21/24 12/21/24 12/21/24 05:46 07:51 11:05 MCV 88.0 MCH 30.1 MCHC 34.2 RDW 16.3 H Plt Count 244 MPV 9.8 Immature Gran % (Auto) 0.5 H Neut % (Auto) 84.8 H Lymph % (Auto) 9.7 L [place] % (Auto) 4.9 Eos % (Auto) 0.0 Baso % (Auto) 0.1 Lymph # (Auto) 1.2 [place] # (Auto) 0.6 Eos # (Auto) 0.0 Baso # (Auto) 0.0 Abs Immat Gran (auto) 0.06 H Absolute Neuts (auto) 10.3 H Absolute Nucleated RBC 0.000 Nucleated RBC % (auto) 0.0 D-Dimer High Sensitivty VBG pH VBG pCO2 VBG pO2 VBG HCO3 VBG O2 Saturation VBG Base Excess Anion Gap 14 Estim Creat Clear Calc 131.9 Estimated GFR > 60 POC Glucose 144 H 187 H Random Glucose 146 H Calcium 8.3 L Assessment and Plan (1) Acute respiratory failure with hypoxia: Status: Acute (2) COPD exacerbation: Status: Acute (3) DMII (diabetes mellitus, type 2): Status: Acute Plan This is a 59-year-old male with pertinent history of asthma/COPD overlap syndrome not on home oxygen, prostate cancer on radiotherapy, LUIS noncompliant with CPAP, hypertension, xdz-nxyrevn-hniurmrov diabetes mellitus, mixed hyperlipidemia, BPH who presents to the emergency department for evaluation of dyspnea. 1.Acute respiratory distress due to acute exacerbation of asthma/COPD overlap syndrome -increase methylprednisolone to 60 mg Q 6 hours -add IV doxycycline given productive cough -schedule DuoNebs -titrate O2 as tolerated to maintain sats greater than equal 92% 2.Hypertension -acceptable control on current therapies -adjust as indicated 3.Uhr-fqoprvc-eyligkelm diabetes mellitus -acceptable control on current therapies -diabetic diet (2000 calories) -lispro correctional scale -adjust as indicated Lovenox Full code Requires ongoing hospitalization for IV steroids and antibiotics to treat COPD exacerbation that has failed outpatient therapies Quality Stroke Does the patient have a stroke diagnosis?: No VTE Prior VTE?: No VTE Risk Level:: Medical - moderate - high VTE Device Contraindication: Treatment Not Indicated VTE Drug Contraindication: N/A - Med Ordered
[2024-12-21] MEDS: Aspirin Enteric Coated 81 MG TABLET.DR PO (13:47)
[2024-12-21 16:11] LABS: Glucose, Whole Blood 175 mg/dL (60-115)
[2024-12-21 20:39] LABS: Glucose, Whole Blood 162 mg/dL (60-115)
[2024-12-21] MEDS: 0.9 % Sodium Chloride Flush 3 ML SYRINGE IVFLUSH (20:49)
[2024-12-22] VITALS (8 sets, daily range): BP systolic 109–141; BP diastolic 61–75; PULSE 3–85; RESP 16–18; TEMP 36.2–36.3; O2SAT 93–99
[2024-12-22] MEDS: guaiFEN/Codeine SF 200/20/10ML 10 ML LIQUID PO (05:05)
[2024-12-22 06:29] LABS: MANUAL DIFF FLAG NO
[2024-12-22 06:31] LABS: Hematocrit 40.5 % (42.0-52.0); Hemoglobin 13.8 g/dl (14.0-18.0); Imm Gran Abs Auto 0.09 X10*3/uL (0.00-0.03); Imm Gran Pct Auto 0.6 % (0.0-0.4); Lymphocytes Absolute Auto 1.2 X10*3/uL (1.2-4.9); Mean Corpuscular HGB Conc 34.1 g/dl (31.0-36.0); Mean Corpuscular Hemoglobin 29.9 pg (27.0-33.0); Mean Corpuscular Volume 87.9 fL (80.0-98.0); NRBC Abs Auto 0.000 X10*3/uL (0.0-0.012); NRBC Pct Auto 0.0 /100WBC (0.0-0.2); Platelet Count 253 X10*3/uL (160-400); Red Blood Count 4.61 X10*6/uL (4.60-5.80); White Blood Count 16.0 X10*3/uL (4.8-10.8)
[2024-12-22] MEDS: Albuterol/Iprat 2.5/0.5MG 3 ML AMPUL.NEB INHALE ×4 (06:39→20:05)
[2024-12-22 06:49] LABS: Alanine Aminotransferase 42 U/L (0-40); Albumin Level 3.8 g/dL (3.5-5.0); Alkaline Phosphatase 64 U/L (39-117); Anion Gap 10 (12-20); Aspartate Amino Transferase 22 U/L (5-37); Blood Urea Nitrogen 17 mg/dL (9-16); Calcium 8.1 mg/dL (8.4-10.2); Carbon Dioxide 27 mmol/L (22-29); Chloride 104 mmol/L (96-108); Creatinine Clr Calc Pharmacy 142.7; Estimated Glomerular Filt Rate > 60; Potassium 4.4 mmol/L (3.3-5.1); Sodium 137 mmol/L (135-145); Total Protein 6.4 g/dL (6.5-8.0)
[2024-12-22 07:20] LABS: Glucose, Whole Blood 148 mg/dL (60-115)
[2024-12-22] MEDS: Aspirin Enteric Coated 81 MG TABLET.DR PO (08:23)
[2024-12-22] MEDS: 0.9 % Sodium Chloride Flush 3 ML SYRINGE IVFLUSH ×2 (08:31→19:45)
[2024-12-22] MEDS: guaiFENesin LA 600 MG TAB.ER.12H PO ×2 (10:37→20:41)
[2024-12-22] MEDS: HYDROcodone Bit/Acetam 5/325 TABLET 1 TAB PO ×2 (11:46→19:25)
[2024-12-22 11:48] LABS: Glucose, Whole Blood 172 mg/dL (60-115)
--- NOTE | 2024-12-22 15:05 | P.PNIM_ITS ---
Subjective Subjective Date of Service: 12/22/24 Interval History: Slight worsening overnight. Rhonchorous cough with left-sided chest pain with cough Review of Systems Denies chest pain Admits to shortness of breath with minimal improvement Denies nausea vomiting diarrhea Denies fever chills Physical Exam 2 Vital Signs: Vital Signs: Last Vital Signs Temp 97.4 F 12/22/24 08:02 Pulse 82 12/22/24 12:04 Resp 18 12/22/24 12:04 BP 130/73 12/22/24 08:02 Pulse Ox 94 12/22/24 08:02 O2 Del Method Room Air 12/22/24 08:02 BMI result Body Mass Index 39.5 Const: Other: Awake alert no acute distress Resp: Other: Diminished at bases with dense expiratory wheezes throughout Cardio: Other: No S4; positive S1-S2; no S3 murmurs rubs or gallops GI: Other: Soft nontender nondistended normoactive bowel sounds Extrem: Other: No edema bilaterally Objective Data Active Medications Acetaminophen (Acetaminophen 325 Mg Tablet) 650 mg PO Q6H PRN PRN Reason: Pain, Mild 1-3,fever,headache Last Admin: 12/22/24 05:00 Dose: 650 mg Documented By: ALEXANDER Hydrocodone Bitart/Acetaminophen (Hydrocodone Bit/Acetam 5/325 Tablet) 1 tab PO Q4H PRN PRN Reason: Pain, Moderate(Pain Scale 4-6) Last Admin: 12/22/24 11:46 Dose: 1 tab Documented By: GERONIMO Albuterol/Ipratropium (Albuterol/Iprat 2.5/0.5mg 3 Ml Ampul.Neb) 3 ml INHALE Q4H PRN PRN Reason: Shortness of Breath/Wheezing Albuterol/Ipratropium (Albuterol/Iprat 2.5/0.5mg 3 Ml Ampul.Neb) 3 ml INHALE RQ4H WHILE AWAKE [facility] Last Admin: 12/22/24 12:03 Dose: 3 ml Documented By: SUAD Amlodipine Besylate (Amlodipine Besylate 10 Mg Tablet) 10 mg PO DAILY [facility]; Protocol Last Admin: 12/22/24 08:23 Dose: 10 mg Documented By: GERONIMO Aspirin (Aspirin Enteric Coated 81 Mg Tablet.Dr) 81 mg PO DAILY [facility] Last Admin: 12/22/24 08:23 Dose: 81 mg Documented By: GERONIMO Benzonatate (Benzonatate 100 Mg Capsule) 100 mg PO TID PRN PRN Reason: Cough Calcium Carbonate (Calcium Carbonate 750 Mg Tab.Chew) 750 mg PO Q4H PRN PRN Reason: Heartburn Ceftriaxone Sodium (Ceftriaxone Sodium 1 Gm Vial) 1 gm IVPUSH Q24H [facility] Last Admin: 12/22/24 10:37 Dose: 1 gm Documented By: GERONIMO Dextrose (Dextrose 50 % 25 Gm/50 Ml Syringe) 25 gm IVPUSH Q15M PRN; Protocol PRN Reason: per Hypoglycemia Standing Ord. Doxazosin Mesylate (Doxazosin Mesylate 2 Mg Tablet) 4 mg PO BEDTIME [facility] Last Admin: 12/21/24 20:50 Dose: 4 mg Documented By: ALEXANDER Ezetimibe (Ezetimibe 10 Mg Tablet) 10 mg PO DAILY [facility] Last Admin: 12/22/24 08:30 Dose: 10 mg Documented By: GERONIMO Enalapril Maleate (Enalapril Maleate 10 Mg Tablet) 20 mg PO DAILY [facility]; Protocol Last Admin: 12/22/24 08:23 Dose: 20 mg Documented By: GERONIMO Enoxaparin Sodium (Enoxaparin Sodium 40 Mg/0.4 Ml Syringe) 40 mg SUBCUT Q24H [facility] Last Admin: 12/21/24 18:18 Dose: 40 mg Documented By: ALISON Glucose (Glucose Gel 15 Gm Gel..Gram.) 15 gm PO Q15M PRN; Protocol PRN Reason: per Hypoglycemia Standing Ord. Guaifenesin (Guaifenesin La 600 Mg Tab.Er.12h) 600 mg PO BID [facility] Last Admin: 12/22/24 10:37 Dose: 600 mg Documented By: GERONIMO Doxycycline Hyclate 100 mg/ (Sodium Chloride) 250 mls @ 166.67 mls/hr IV Q12H [facility] Last Admin: 12/22/24 13:52 Dose: 166.67 mls/hr Documented By: GERONIMO Insulin Human Lispro (Insulin Lispro 100 Unit/Ml 3 Ml Vial) 0 unit SUBCUT QIDACHS [facility]; Protocol Last Admin: 12/22/24 12:00 Dose: 2 unit Documented By: GERONIMO Magnesium Hydroxide (Milk Of Magnesia 30 Ml Oral.Susp) 30 ml PO DAILY PRN PRN Reason: Constipation Last Admin: 12/21/24 10:24 Dose: 30 ml Documented By: ALISON Melatonin (Melatonin 3 Mg Tablet) 6 mg PO BEDTIME PRN PRN Reason: Insomnia Metformin HCl (Metformin Hcl 500 Mg Tablet) 250 mg PO DAILY [facility] Last Admin: 12/22/24 08:24 Dose: 250 mg Documented By: GERONIMO Methylprednisolone Sodium Succinate (Methylprednisolone Sod Succ 125 Mg/2 Ml Vial) 60 mg IVPUSH Q6H [facility] Last Admin: 12/22/24 13:53 Dose: 60 mg Documented By: GERONIMO Montelukast Sodium (Montelukast Sodium 10 Mg Tablet) 10 mg PO BEDTIME [facility] Last Admin: 12/21/24 20:50 Dose: 10 mg Documented By: ALEXANDER Ondansetron HCl (Ondansetron Hcl 4 Mg/2 Ml Vial) 4 mg IVPUSH Q8H PRN PRN Reason: Nausea and Vomiting Sodium Chloride (0.9 % Sodium Chloride Flush 3 Ml Syringe) 3 ml IVFLUSH QSHIFT [facility] Last Admin: 12/22/24 08:31 Dose: 3 ml Documented By: GERONIMO Tamsulosin HCl (Tamsulosin Hcl 0.4 Mg Capsule) 0.4 mg PO BEDTIME [facility] Last Admin: 12/21/24 20:50 Dose: 0.4 mg Documented By: ALEXANDER Labs 12/22/24 06:01 12/22/24 06:01 Labs: Laboratory Results - last 24 hr 12/21/24 12/21/24 12/22/24 16:03 20:33 06:01 MCV 87.9 MCH 29.9 MCHC 34.1 RDW 16.5 H Plt Count 253 MPV 9.7 Immature Gran % (Auto) 0.6 H Neut % (Auto) 88.2 H Lymph % (Auto) 7.3 L [place] % (Auto) 3.8 Eos % (Auto) 0.0 Baso % (Auto) 0.1 Lymph # (Auto) 1.2 [place] # (Auto) 0.6 Eos # (Auto) 0.0 Baso # (Auto) 0.0 Abs Immat Gran (auto) 0.09 H Absolute Neuts (auto) 14.1 H Absolute Nucleated RBC 0.000 Nucleated RBC % (auto) 0.0 Anion Gap 10 L Estim Creat Clear Calc 142.7 Estimated GFR > 60 POC Glucose 175 H 162 H Fasting Glucose 158 H Calcium 8.1 L Total Bilirubin 0.3 AST 22 ALT 42 H Alkaline Phosphatase 64 Total Protein 6.4 L Albumin 3.8 12/22/24 12/22/24 07:09 11:39 MCV MCH MCHC RDW Plt Count MPV Immature Gran % (Auto) Neut % (Auto) Lymph % (Auto) [place] % (Auto) Eos % (Auto) Baso % (Auto) Lymph # (Auto) [place] # (Auto) Eos # (Auto) Baso # (Auto) Abs Immat Gran (auto) Absolute Neuts (auto) Absolute Nucleated RBC Nucleated RBC % (auto) Anion Gap Estim Creat Clear Calc Estimated GFR POC Glucose 148 H 172 H Fasting Glucose Calcium Total Bilirubin AST ALT Alkaline Phosphatase Total Protein Albumin Assessment and Plan (1) Acute respiratory failure with hypoxia: Status: Acute (2) COPD exacerbation: Status: Acute (3) DMII (diabetes mellitus, type 2): Status: Acute Plan This is a 59-year-old male with pertinent history of asthma/COPD overlap syndrome not on home oxygen, prostate cancer on radiotherapy, LUIS noncompliant with CPAP, hypertension, clf-lavghhp-raggxmtcd diabetes mellitus, mixed hyperlipidemia, BPH who presents to the emergency department for evaluation of dyspnea. 1.Acute respiratory distress due to acute exacerbation of asthma/COPD overlap syndrome -increase methylprednisolone to 60 mg Q 6 hours -add ceftriaxone(1)doxycycline(2) -schedule DuoNebs -titrate O2 as tolerated to maintain sats greater than equal 92% 2.Hypertension -acceptable control on current therapies -adjust as indicated 3.Buw-oprsjfx-jlutjoisb diabetes mellitus -acceptable control on current therapies -diabetic diet (2000 calories) -lispro correctional scale -adjust as indicated Lovenox Full code Requires ongoing hospitalization for IV steroids and antibiotics to treat COPD exacerbation that has failed outpatient therapies Quality Stroke Does the patient have a stroke diagnosis?: No VTE Prior VTE?: No VTE Risk Level:: Medical - moderate - high VTE Device Contraindication: Treatment Not Indicated VTE Drug Contraindication: N/A - Med Ordered
[2024-12-22 16:39] LABS: Glucose, Whole Blood 148 mg/dL (60-115)
[2024-12-22 20:38] LABS: Glucose, Whole Blood 225 mg/dL (60-115)
[2024-12-23] VITALS (7 sets, daily range): BP systolic 123–141; BP diastolic 65–72; PULSE 75–100; RESP 16–18; TEMP 36–36.7; O2SAT 93–99
[2024-12-23] MEDS: Albuterol/Iprat 2.5/0.5MG 3 ML AMPUL.NEB INHALE ×5 (06:19→20:13)
[2024-12-23 07:52] LABS: Glucose, Whole Blood 151 mg/dL (60-115)
[2024-12-23] MEDS: guaiFENesin LA 600 MG TAB.ER.12H PO ×2 (08:05→20:12)
[2024-12-23] MEDS: HYDROcodone Bit/Acetam 5/325 TABLET 1 TAB PO ×2 (08:05→12:13)
[2024-12-23] MEDS: Aspirin Enteric Coated 81 MG TABLET.DR PO (08:05)
[2024-12-23] MEDS: 0.9 % Sodium Chloride Flush 3 ML SYRINGE IVFLUSH (08:17)
[2024-12-23 08:43] LABS: MANUAL DIFF FLAG NO
[2024-12-23 08:58] LABS: Hematocrit 42.2 % (42.0-52.0); Hemoglobin 14.8 g/dl (14.0-18.0); Imm Gran Abs Auto 0.32 X10*3/uL (0.00-0.03); Imm Gran Pct Auto 1.9 % (0.0-0.4); Lymphocytes Absolute Auto 0.9 X10*3/uL (1.2-4.9); Mean Corpuscular HGB Conc 35.1 g/dl (31.0-36.0); Mean Corpuscular Hemoglobin 30.4 pg (27.0-33.0); Mean Corpuscular Volume 86.7 fL (80.0-98.0); NRBC Abs Auto 0.000 X10*3/uL (0.0-0.012); NRBC Pct Auto 0.0 /100WBC (0.0-0.2); Platelet Count 251 X10*3/uL (160-400); Red Blood Count 4.87 X10*6/uL (4.60-5.80); White Blood Count 17.2 X10*3/uL (4.8-10.8)
[2024-12-23 09:11] LABS: Alanine Aminotransferase 41 U/L (0-40); Albumin Level 3.9 g/dL (3.5-5.0); Alkaline Phosphatase 74 U/L (39-117); Anion Gap 15 (12-20); Aspartate Amino Transferase 23 U/L (5-37); Blood Urea Nitrogen 18 mg/dL (9-16); Calcium 8.1 mg/dL (8.4-10.2); Carbon Dioxide 22 mmol/L (22-29); Chloride 105 mmol/L (96-108); Creatinine Clr Calc Pharmacy 125.5; Estimated Glomerular Filt Rate > 60; Potassium 4.4 mmol/L (3.3-5.1); Sodium 138 mmol/L (135-145); Total Protein 6.9 g/dL (6.5-8.0)
--- NOTE | 2024-12-23 11:24 | MHC.CM.PN ---
Per MD rounds patient is not medically cleared to discharge. [facility] provides ACCOUNT ASSISTANT/PCM 30 hrs. DP home with resumption of ACCOUNT ASSISTANT services. Patients will provide transportation home.
[2024-12-23 11:29] LABS: Glucose, Whole Blood 182 mg/dL (60-115)
--- NOTE | 2024-12-23 14:03 | HO.PM.IMPN ---
Subjective Subjective Date of Service: 12/23/24 Interval History: Slowly responding to therapies. No acute issues overnight Review of Systems Denies chest pain Admits to shortness of breath with minimal improvement Denies nausea vomiting diarrhea Denies fever chills Physical Exam Vital Signs: Vital Signs: Last Vital Signs Temp 96.8 F 12/23/24 07:19 Pulse 100 12/23/24 07:19 Resp 16 12/23/24 07:19 BP 141/72 H 12/23/24 07:19 Pulse Ox 93 12/23/24 07:19 O2 Del Method Room Air 12/23/24 07:19 BMI result Body Mass Index 39.5 Const: Other: Awake alert no acute distress Resp: Other: Diminished at bases with dense expiratory wheezes throughout Cardio: Other: No S4; positive S1-S2; no S3 murmurs rubs or gallops GI: Other: Soft nontender nondistended normoactive bowel sounds Extrem: Other: No edema bilaterally Objective Data Active Medications Acetaminophen (Acetaminophen 325 Mg Tablet) 650 mg PO Q6H PRN PRN Reason: Pain, Mild 1-3,fever,headache Last Admin: 12/22/24 05:00 Dose: 650 mg Documented By: ALEXANDER Hydrocodone Bitart/Acetaminophen (Hydrocodone Bit/Acetam 5/325 Tablet) 1 tab PO Q4H PRN PRN Reason: Pain, Moderate(Pain Scale 4-6) Last Admin: 12/23/24 12:13 Dose: 1 tab Documented By: FEDERICO Albuterol/Ipratropium (Albuterol/Iprat 2.5/0.5mg 3 Ml Ampul.Neb) 3 ml INHALE Q4H PRN PRN Reason: Shortness of Breath/Wheezing Last Admin: 12/23/24 10:37 Dose: 3 ml Documented By: GERONIMO Albuterol/Ipratropium (Albuterol/Iprat 2.5/0.5mg 3 Ml Ampul.Neb) 3 ml INHALE RQ4H WHILE AWAKE [facility] Last Admin: 12/23/24 11:06 Dose: Not Given Documented By: TAMIKO Non-Admin Reason: Administered by Alternate Route Amlodipine Besylate (Amlodipine Besylate 10 Mg Tablet) 10 mg PO DAILY [facility]; Protocol Last Admin: 12/23/24 08:04 Dose: 10 mg Documented By: GERONIMO Aspirin (Aspirin Enteric Coated 81 Mg Tablet.Dr) 81 mg PO DAILY [facility] [place] Last Admin: 12/23/24 08:05 Dose: 81 mg Documented By: GERONIMO Benzonatate (Benzonatate 100 Mg Capsule) 100 mg PO TID PRN PRN Reason: Cough Calcium Carbonate (Calcium Carbonate 750 Mg Tab.Chew) 750 mg PO Q4H PRN PRN Reason: Heartburn Ceftriaxone Sodium (Ceftriaxone Sodium 1 Gm Vial) 1 gm IVPUSH Q24H [facility] [place] Last Admin: 12/23/24 10:37 Dose: 1 gm Documented By: GERONIMO Dextrose (Dextrose 50 % 25 Gm/50 Ml Syringe) 25 gm IVPUSH Q15M PRN; Protocol PRN Reason: per Hypoglycemia Standing Ord. Doxazosin Mesylate (Doxazosin Mesylate 2 Mg Tablet) 4 mg PO BEDTIME [facility] Last Admin: 12/22/24 20:41 Dose: 4 mg Documented By: ALEXANDER Ezetimibe (Ezetimibe 10 Mg Tablet) 10 mg PO DAILY [facility] Last Admin: 12/23/24 08:04 Dose: 10 mg Documented By: GERONIMO Enalapril Maleate (Enalapril Maleate 10 Mg Tablet) 20 mg PO DAILY [facility]; Protocol Last Admin: 12/23/24 08:05 Dose: 20 mg Documented By: GERONIMO Enoxaparin Sodium (Enoxaparin Sodium 40 Mg/0.4 Ml Syringe) 40 mg SUBCUT Q24H [facility] Last Admin: 12/22/24 19:45 Dose: 40 mg Documented By: ALEXANDER Glucose (Glucose Gel 15 Gm Gel..Gram.) 15 gm PO Q15M PRN; Protocol PRN Reason: per Hypoglycemia Standing Ord. Guaifenesin (Guaifenesin La 600 Mg Tab.Er.12h) 600 mg PO BID [facility] Last Admin: 12/23/24 08:05 Dose: 600 mg Documented By: GERONIMO Doxycycline Hyclate 100 mg/ (Sodium Chloride) 250 mls @ 166.67 mls/hr IV Q12H [facility] [place] Last Admin: 12/23/24 13:29 Dose: 166.67 mls/hr Documented By: GERONIMO Insulin Human Lispro (Insulin Lispro 100 Unit/Ml 3 Ml Vial) 0 unit SUBCUT QIDACHS [facility]; Protocol Last Admin: 12/23/24 11:55 Dose: 2 unit Documented By: GERONIMO Magnesium Hydroxide (Milk Of Magnesia 30 Ml Oral.Susp) 30 ml PO DAILY PRN PRN Reason: Constipation Last Admin: 12/21/24 10:24 Dose: 30 ml Documented By: ALISON Melatonin (Melatonin 3 Mg Tablet) 6 mg PO BEDTIME PRN PRN Reason: Insomnia Metformin HCl (Metformin Hcl 500 Mg Tablet) 250 mg PO DAILY [facility] [place] Last Admin: 12/23/24 08:04 Dose: 250 mg Documented By: GERONIMO Methylprednisolone Sodium Succinate (Methylprednisolone Sod Succ 125 Mg/2 Ml Vial) 60 mg IVPUSH Q6H [facility] [place] Last Admin: 12/23/24 13:29 Dose: 60 mg Documented By: GERONIMO Montelukast Sodium (Montelukast Sodium 10 Mg Tablet) 10 mg PO BEDTIME [facility] Last Admin: 12/22/24 20:41 Dose: 10 mg Documented By: ALEXANDER Ondansetron HCl (Ondansetron Hcl 4 Mg/2 Ml Vial) 4 mg IVPUSH Q8H PRN PRN Reason: Nausea and Vomiting Sodium Chloride (0.9 % Sodium Chloride Flush 3 Ml Syringe) 3 ml IVFLUSH QSHIFT [facility] [place] Last Admin: 12/23/24 08:17 Dose: 3 ml Documented By: GERONIMO Tamsulosin HCl (Tamsulosin Hcl 0.4 Mg Capsule) 0.4 mg PO BEDTIME [facility] Last Admin: 12/22/24 20:41 Dose: 0.4 mg Documented By: ALEXANDER Labs 12/23/24 08:14 12/23/24 08:14 Labs: Laboratory Results - last 24 hr 12/22/24 12/22/24 12/23/24 16:35 20:31 07:39 MCV MCH MCHC RDW Plt Count MPV Immature Gran % (Auto) Neut % (Auto) Lymph % (Auto) [place] % (Auto) Eos % (Auto) Baso % (Auto) Lymph # (Auto) [place] # (Auto) Eos # (Auto) Baso # (Auto) Abs Immat Gran (auto) Absolute Neuts (auto) Absolute Nucleated RBC Nucleated RBC % (auto) Anion Gap Estim Creat Clear Calc Estimated GFR POC Glucose 148 H 225 H 151 H Fasting Glucose Calcium Total Bilirubin AST ALT Alkaline Phosphatase Total Protein Albumin 12/23/24 12/23/24 08:14 11:19 MCV 86.7 MCH 30.4 MCHC 35.1 RDW 16.5 H Plt Count 251 MPV 10.4 Immature Gran % (Auto) 1.9 H Neut % (Auto) 89.0 H Lymph % (Auto) 5.2 L [place] % (Auto) 3.8 Eos % (Auto) 0.0 Baso % (Auto) 0.1 Lymph # (Auto) 0.9 L [place] # (Auto) 0.7 Eos # (Auto) 0.0 Baso # (Auto) 0.0 Abs Immat Gran (auto) 0.32 H Absolute Neuts (auto) 15.4 H Absolute Nucleated RBC 0.000 Nucleated RBC % (auto) 0.0 Anion Gap 15 Estim Creat Clear Calc 125.5 Estimated GFR > 60 POC Glucose 182 H Fasting Glucose 195 H Calcium 8.1 L Total Bilirubin 0.5 AST 23 ALT 41 H Alkaline Phosphatase 74 Total Protein 6.9 Albumin 3.9 Assessment and Plan (1) Acute respiratory failure with hypoxia: Status: Acute (2) Asthma exacerbation: Status: Acute (3) DMII (diabetes mellitus, type 2): Status: Acute Plan This is a 59-year-old male with pertinent history of asthma/COPD overlap syndrome not on home oxygen, prostate cancer on radiotherapy, LUIS noncompliant with CPAP, hypertension, fbe-bcuczqy-rlmooozqe diabetes mellitus, mixed hyperlipidemia, BPH who presents to the emergency department for evaluation of dyspnea. 1.Acute respiratory distress due to acute exacerbation of asthma/COPD overlap syndrome -increase methylprednisolone to 60 mg Q 6 hours -add ceftriaxone(2)doxycycline(3) -schedule DuoNebs -sats acceptable on room air 2.Hypertension -acceptable control on current therapies -adjust as indicated 3.Jph-lgscece-xsndeibvj diabetes mellitus -acceptable control on current therapies -diabetic diet (2000 calories) -lispro correctional scale -adjust as indicated Lovenox Full code Requires ongoing hospitalization for IV steroids and antibiotics to treat COPD exacerbation that has failed outpatient therapies Quality Stroke Does the patient have a stroke diagnosis?: No VTE Prior VTE?: No VTE Risk Level:: Medical - moderate - high VTE Device Contraindication: Treatment Not Indicated VTE Drug Contraindication: N/A - Med Ordered
[2024-12-23 16:26] LABS: Glucose, Whole Blood 131 mg/dL (60-115)
[2024-12-23 20:28] LABS: Glucose, Whole Blood 133 mg/dL (60-115)
[2024-12-24] VITALS: BP 128/68; PULSE 78; RESP 18; TEMP 36.2; O2SAT 95
[2024-12-24] MEDS: 0.9 % Sodium Chloride Flush 3 ML SYRINGE IVFLUSH ×2 (01:15→07:33)
[2024-12-24 06:26] LABS: MANUAL DIFF FLAG NO
[2024-12-24 06:29] LABS: Hematocrit 40.0 % (42.0-52.0); Hemoglobin 13.9 g/dl (14.0-18.0); Imm Gran Abs Auto 0.32 X10*3/uL (0.00-0.03); Imm Gran Pct Auto 1.9 % (0.0-0.4); Lymphocytes Absolute Auto 0.9 X10*3/uL (1.2-4.9); Mean Corpuscular HGB Conc 34.8 g/dl (31.0-36.0); Mean Corpuscular Hemoglobin 30.3 pg (27.0-33.0); Mean Corpuscular Volume 87.1 fL (80.0-98.0); NRBC Abs Auto 0.000 X10*3/uL (0.0-0.012); NRBC Pct Auto 0.0 /100WBC (0.0-0.2); Platelet Count 249 X10*3/uL (160-400); Red Blood Count 4.59 X10*6/uL (4.60-5.80); White Blood Count 16.4 X10*3/uL (4.8-10.8)
[2024-12-24 07:26] VITALS: BP 131/77; PULSE 90; RESP 16; TEMP 36.2
[2024-12-24 07:28] VITALS: BP 131/77
[2024-12-24] MEDS: Aspirin Enteric Coated 81 MG TABLET.DR PO (07:28)
[2024-12-24] MEDS: Albuterol/Iprat 2.5/0.5MG 3 ML AMPUL.NEB INHALE (07:29)
[2024-12-24 07:30] VITALS: PULSE 95; RESP 18; O2SAT 93
[2024-12-24] MEDS: guaiFENesin LA 600 MG TAB.ER.12H PO (07:30)
[2024-12-24 07:34] LABS: Glucose, Whole Blood 148 mg/dL (60-115)
--- NOTE | 2024-12-24 10:13 | PM.DS ---
DS: Providers Provider Date of Service: 12/24/24 Date of admission: 12/22/24 14:54 Date of discharge: 12/24/24 Primary care physician: Clayton Raza MD DS: Diagnosis Discharge Diagnosis (1) Acute respiratory failure with hypoxia: Status: Acute (2) Asthma exacerbation: Status: Acute (3) DMII (diabetes mellitus, type 2): Status: Acute DS: Summary Hospital Course Hospital Course: 59-year-old male with pertinent history of asthma/COPD overlap syndrome not on home oxygen, prostate cancer on radiotherapy, LUIS noncompliant with CPAP, hypertension, [id number] diabetes mellitus, mixed hyperlipidemia, BPH who presents to the emergency department for evaluation of dyspnea. History obtained with the help of hourly sign language interpreter. His symptoms started about 7 days prior to presentation and have been progressive. Patient was seen in the ER on 12/14/24 and was discharged on p.o. steroids. Patient states he continued having symptoms and hence presented to present to the ER. He has been having nonproductive cough, wheezing and dyspnea which was worse with exertion. No lower extremity leg swelling, orthopnea or PND. He states he has CPAP at home but is noncompliant. Does not smoke cigarettes. No fever, chills, palpitations, abdominal pain, changes in urinary or bowel habits. Hospital Course Patient admitted to general medical floor started on pulse dose steroids only initially. Patient began producing sputum and doxycycline was added. Over day 2 to day 3 of his hospitalization his cough worsened and ceftriaxone was added to his regimen. In the last 48 hours prior to his discharge he improved dramatically and at this point in time is medically acceptable for discharge. He will be discharged home to complete a course of doxycycline as well as Ceftin and a prednisone taper. He will follow up with his PCP next available Time Attestation Discharge Coordination Time (in mins): 35 Quality: Safe Use of Opioids Does Pt have an Active Cancer Diagnosis on the Problem List?: No Quality: Stroke Does the patient have a stroke diagnosis?: No Physical Exam Vital Signs: Vital Signs: Last Vital Signs Temp 97.1 F 12/24/24 07:26 Pulse 95 12/24/24 07:30 Resp 18 12/24/24 07:30 BP 131/77 12/24/24 07:28 Pulse Ox 95 12/24/24 00:00 O2 Del Method Room Air 12/24/24 07:26 BMI result Body Mass Index 39.5 Const: Other: Awake alert no acute distress Resp: Other: Diminished at bases with dense expiratory wheezes throughout Cardio: Other: No S4; positive S1-S2; no S3 murmurs rubs or gallops GI: Other: Soft nontender nondistended normoactive bowel sounds Extrem: Other: No edema bilaterally DS: Data Data Completed and Pending Completed studies during hospitalization [Text1]: Procedures Assistance with Respiratory Ventilation, Less than 24 Consecutive Hours, Continuous Positive Airway Pressure (03/19/23) Labs on day of discharge: Laboratory Results - last 24 hr 12/23/24 12/23/24 12/23/24 11:19 16:22 20:23 WBC RBC Hgb Hct MCV MCH MCHC RDW Plt Count MPV Immature Gran % (Auto) Neut % (Auto) Lymph % (Auto) Mckenzie % (Auto) Eos % (Auto) Baso % (Auto) Lymph # (Auto) Mckenzie # (Auto) Eos # (Auto) Baso # (Auto) Abs Immat Gran (auto) Absolute Neuts (auto) Absolute Nucleated RBC Nucleated RBC % (auto) POC Glucose 182 H 131 H 133 H 12/24/24 12/24/24 05:46 07:28 WBC 16.4 H RBC 4.59 L Hgb 13.9 L Hct 40.0 L MCV 87.1 MCH 30.3 MCHC 34.8 RDW 16.9 H Plt Count 249 MPV 9.4 Immature Gran % (Auto) 1.9 H Neut % (Auto) 88.1 H Lymph % (Auto) 5.6 L Mckenzie % (Auto) 4.3 Eos % (Auto) 0.0 Baso % (Auto) 0.1 Lymph # (Auto) 0.9 L Mckenzie # (Auto) 0.7 Eos # (Auto) 0.0 Baso # (Auto) 0.0 Abs Immat Gran (auto) 0.32 H Absolute Neuts (auto) 14.5 H Absolute Nucleated RBC 0.000 Nucleated RBC % (auto) 0.0 POC Glucose 148 H Discharge Plan Discharge Anticipated Discharge Date/Time: 12/24/24 09:41 Patient Disposition: Home, Self-Care Discharge Diagnosis: Asthma exacerbation Referrals: Clayton Raza MD [Primary Care Provider, Internal Medicine] - 1 Week Discharge Medications: New ipratropium-albuterol 0.5 mg-3 mg(2.5 mg base)/3 mL Solution For Nebulization 3 ml inhalation Q4H PRN (Reason: Shortness Of Breath/Wheezing) Qty: 270 0RF hydrocodone-acetaminophen 5-325 mg Tablet 1 tab PO Q4H PRN (Reason: Pain, Moderate(Pain Scale 4-6)) Qty: 20 0RF Rx Instructions: Partial Fill upon patient request. cefuroxime axetil 500 mg tablet 500 mg PO BID 7 Days Qty: 14 0RF prednisone 10 mg tablet See Rx Instructions .Route .COMPLEX Qty: 45 0RF Rx Instructions: 10 mg orally; 5 tabs p.o. daily x3 days; 4 tabs p.o. daily x3 days; 3 tabs daily x3 days; 2 tabs daily x3 days; 1 tab daily x3 days Continued rosuvastatin 40 mg tablet 40 mg PO DAILY Qty: 90 3RF ezetimibe 10 mg tablet 10 mg PO DAILY Qty: 90 3RF (DME) BEDSIDE COMMODE See Rx Instructions .Route .MEDSUPPLY Qty: 1 0RF Rx Instructions: As directed nabumetone 750 mg tablet 750 mg PO BID PRN (Reason: joint pain and low back pain) 30 Days Qty: 60 2RF Rx Instructions: Take with food aspirin 81 mg tablet,delayed release (DR/EC) 81 mg PO DAILY 90 Days Qty: 90 3RF metformin 500 mg tablet 250 mg PO DAILY 30 Days Qty: 15 2RF enalapril maleate 20 mg tablet 20 mg PO DAILY Qty: 90 1RF amlodipine 10 mg tablet 10 mg PO DAILY 90 Days Qty: 90 0RF umeclidinium-vilanterol [Anoro Ellipta] 62.5-25 mcg/actuation blister with device 1 inh inhalation DAILY Qty: 60 11RF (DME) blood pressure test kit-large Kit See Rx Instructions .Route Qty: 1 0RF Rx Instructions: As directed (DME) DISPOSABLE BED PADS See Rx Instructions .Route .MEDSUPPLY Qty: 60 12RF Rx Instructions: As directed albuterol sulfate [Ventolin HFA] 90 mcg/actuation HFA aerosol inhaler 2 puff inhalation Q6H PRN (Reason: for wheezing) Qty: 18 11RF montelukast [Singulair] 10 mg tablet 10 mg PO BEDTIME 30 Days Qty: 30 11RF azelastine 137 mcg (0.1 %) spray,non-aerosol 2 spray intranasal BID 30 Days Qty: 30 6RF Rx Instructions: administer into each nostril terazosin 5 mg capsule 5 mg PO BEDTIME 90 Days Qty: 90 1RF tamsulosin 0.4 mg capsule 0.4 mg PO BEDTIME Discontinued albuterol sulfate 2.5 mg /3 mL (0.083 %) solution for nebulization 2.5 mg inhalation BID 30 Days Qty: 180 11RF No Action (DME) WHEELED WALKER See Rx Instructions .Route .MEDSUPPLY Qty: 1 0RF Rx Instructions: As directed (DME) TRANSFER TUB BENCH See Rx Instructions .Route .MEDSUPPLY Qty: 1 0RF Rx Instructions: As directed (DME) Kneeling Scooter See Rx Instructions .ROUTE .MEDSUPPLY Qty: 1 0RF Rx Instructions: duration 99 days (DME) nebulizers Misc See Rx Instructions .Route Rx Instructions: As directed Discharge Orders: Discharge Order (Routine); Ordered 12/24/24 Ordered By: Hever Malin Diet: Advance to usual diet Activity on Discharge: As tolerated Stand Alone Forms: Patient Portal Discharge page Print Language: Upper Sorbian Care Plan Goals: Resume all medicines as taken prior to hospitalization Health Concerns: Ceftin 500 twice daily x1 week along with prednisone taper has been added to your regimen. Take these until complete. Vicodin has been ordered for your cough to take as needed Plan of Treatment: Follow up with the PCP next available Assessment: See discharge summary
--- NOTE | 2024-12-24 10:30 | MHC.CM.PN ---
PT TO DC HOME TODAY VIA [facility] NO SERVICES INDICATED
[2024-12-24 11:33] LABS: Glucose, Whole Blood 139 mg/dL (60-115)
[2024-12-24 12:02] VITALS: BP 151/72; PULSE 102; RESP 18; TEMP 36.2; O2SAT 95
== END 2024-12-24 11:59 | disposition home or self-care (01) | DRG 190 ==
LOC: HO.ED 18:15 → HO.EDOVER 19:06 → HO.S3 19:25
PROVIDERS: Physician Assistant; Physician Assistant Medical; Admitting Provider Student in an Organized Health Care Education/Training Program; Emergency Provider Emergency Medicine; PCP Internal Medicine; Visit Provider Hospitalist
DX: J44.1 Chronic obstructive pulmonary disease with (acute) exacerbation (principal); J96.01 Acute respiratory failure with hypoxia; J45.901 Unspecified asthma with (acute) exacerbation; I25.10 Atherosclerotic heart disease of native coronary artery without angina pectoris; E11.9 Type 2 diabetes mellitus without complications; C61 Malignant neoplasm of prostate; N40.0 Benign prostatic hyperplasia without lower urinary tract symptoms; Z95.5 Presence of coronary angioplasty implant and graft; E78.2 Mixed hyperlipidemia; G47.33 Obstructive sleep apnea (adult) (pediatric); I10 Essential (primary) hypertension; Z20.822 Contact with and (suspected) exposure to COVID-19; Z91.199 Patient's noncompliance with other medical treatment and regimen due to unspecified reason; Z79.84 Long term (current) use of oral hypoglycemic drugs; Z79.899 Other long term (current) drug therapy
CPT/HCPCS: 36415; 71045; 71046; 80048; 80053; 82803; 82947; 83735; 83880; 84484; 85025; 85379; 87637; 93005; 93970; 94640; 99285; J0456; J0696; J1271; J1650; J2919; J3475

== ENCOUNTER → 2024-12-20 11:07 | Outpatient (BNV) | payer OTHER, SELFPAY | PROVIDERS: Admitting Provider Student in an Organized Health Care Education/Training Program; Emergency Provider Emergency Medicine; PCP Internal Medicine; Visit Provider Internal Medicine Cardiovascular Disease | DX: R06.02 Shortness of breath (principal) | CPT/HCPCS: 93010 ==

== ENCOUNTER → 2024-12-20 11:08 | Outpatient (BNV) | payer OTHER, SELFPAY | PROVIDERS: PCP Internal Medicine; Visit Provider Radiology Diagnostic Radiology | DX: M79.604 Pain in right leg (principal); M79.605 Pain in left leg; R06.02 Shortness of breath | CPT/HCPCS: 71046; 93970 ==

== ENCOUNTER → 2024-12-20 18:58 | Outpatient (BNV) | payer OTHER, SELFPAY | PROVIDERS: Admitting Provider Student in an Organized Health Care Education/Training Program; Emergency Provider Emergency Medicine; PCP Internal Medicine; Visit Provider Student in an Organized Health Care Education/Training Program | DX: R06.03 Acute respiratory distress (principal) | CPT/HCPCS: 99222; 99239 ==

== ENCOUNTER 2024-12-22 14:54 | Outpatient (BNV) | payer OTHER, SELFPAY | END 2024-12-23 10:55 | PROVIDERS: Admitting Provider Student in an Organized Health Care Education/Training Program; Emergency Provider Emergency Medicine; PCP Internal Medicine; Visit Provider Radiology Body Imaging | DX: R06.02 Shortness of breath (principal) | CPT/HCPCS: 71045 ==

== ENCOUNTER → 2025-01-11 13:43 | Outpatient (REF) | payer OTHER, SELFPAY ==
--- NOTE | 2025-01-11 13:47 | CA_ITS ---
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 Low normal LV EF of 50-55% 2. Normal cardiac valvular Dopplers 3. Normal RV systolic pressure Findings Procedure Information Contrast agent, definity, is being given per protocol without apparent complications. Left Ventricle Normal left ventricular cavity size. There is normal left ventricular wall thickness. The left ventricular systolic function is low normal. The visually estimated ejection fraction is between 50-55%. Spectral Doppler is indicative of a normal filling pattern. Right Ventricle Normal right ventricular cavity size and systolic function. Atria Both atria are normal in size. There is no evidence of interatrial shunt. Aortic Valve The aortic valve structure and function is likely normal. There is mild calcification of the aortic valve. There is no aortic valve stenosis. There is no aortic valve regurgitation. Mitral Valve Normal mitral valve structure and function. There is trace mitral valve regurgitation. There is no mitral valve stenosis. Pulmonic Valve The pulmonic valve was not well visualized. Tricuspid Valve Normal tricuspid valve structure. There is trace tricuspid valve regurgitation. The right ventricular systolic pressure is 32 mmHg. Normal right atrial pressure. There is no evidence of pulmonary hypertension. Great Vessels All visible segments of the aorta are normal in size. The pulmonary artery was not well visualized. Venous The inferior vena cava is normal in size. Pericardium/Pleural There is no evidence of pericardial effusion. Measurements 2D Linear Measurements IVSd: 0.73 0.6-0.9/0.6-1.0 cm LVIDd: 4.92 3.9-5.3/4.2-5.9 cm LVIDd Index: 2.08 2.4-3.2/2.2-3.1 cm/m2 LVIDs: 3.35 2.0-3.6 cm LVPWd: 0.81 0.7-1.1 cm LA Diam: 3.40 2.7-3.8/3.0-4.0 cm LAIDs Index: 1.43 1.5-2.3 cm/m2 LV Mass: 155.47 67-162/88-224 g LV Mass Index: 65.60 43-95/49-115 g/m2 LVOT Diam: 2.10 3.0+(-)1.3 cm 2D Systolic Function EF 4C: 54.00 >55% EF 2C: 53.00 >55% EF BiP: 53.80 >55% Mitral Valve MV Pk E: 0.83 MV PK A: 0.70 MV Decel Time: 174.00 E/A: 1.20 E'Lateral: 11.20 E'Medial: 9.14 E/E' Med: 9.00 E/E' Lat: 7.40 PHT: 51.00 MVA PHT: 4.31 Decel Dickson: 4.74 Aortic Valve AoV Pk Ken: 1.71 AoV Mn Ken: 1.15 AoV VTI: 0.33 AoV Pk Grad: 12.00 Aov Mn Grad: 6.00 EYAL Cont.VTI: 2.35 LVOT LVOT Pk Ken: 1.25 LVOT Mn Ken: 0.87 LVOT VTI: 0.23 LVOT Pk Grad: 6.00 LVOT Mn Grad: 3.00 LVOT Diam: 2.10 LVOT Area: 3.46 Diastolic Function MV Pk E: 0.83 MV Pk A: 0.70 E/A: 1.20 E'Medial: 9.14 E/E' Med: 9.00 E' Laterial: 11.20 E/E' Lat: 7.40 Right Ventricle TAPSE (mm): 22.60 TVS' Ken: 13.80 Tricuspid Valve TR Pk Ken: 2.69 TR Pk Grad: 29.00 RA Press: 3.00 RVSP: 32.00 Great Vessels Aorta Sinus of Valsalva: 3.35 2.0-3.5 cm Ao Asc: 3.30 2.1-3.4 cm Ao Arch: 3.00 Updated in Other Vendor System with Status of Final Akbar Banuelos MD electronically signed on 01/12/2025 11:05:29 AM with status of Final
== END ==
LOC: HO.CARD 13:43
PROVIDERS: PCP Internal Medicine; Visit Provider Internal Medicine Cardiovascular Disease
DX: R60.0 Localized edema (principal)
CPT/HCPCS: 93306; Q9957

== ENCOUNTER → 2025-01-11 13:47 | Outpatient (BNV) | payer OTHER, SELFPAY | PROVIDERS: PCP Internal Medicine; Visit Provider Internal Medicine Cardiovascular Disease | DX: I35.8 Other nonrheumatic aortic valve disorders (principal) | CPT/HCPCS: 93306 ==

== ENCOUNTER 2025-01-13 11:08 | Outpatient (REF) | payer OTHER, SELFPAY ==
[2025-01-13 11:41] LABS: MANUAL DIFF FLAG NO
[2025-01-13 13:02] LABS: Hematocrit 41.0 % (42.0-52.0); Hemoglobin 14.1 g/dl (14.0-18.0); Imm Gran Abs Auto 0.00 X10*3/uL (0.00-0.03); Imm Gran Pct Auto 0.0 % (0.0-0.4); Lymphocytes Absolute Auto 0.8 X10*3/uL (1.2-4.9); Mean Corpuscular HGB Conc 34.4 g/dl (31.0-36.0); Mean Corpuscular Hemoglobin 30.3 pg (27.0-33.0); Mean Corpuscular Volume 88.0 fL (80.0-98.0); NRBC Abs Auto 0.000 X10*3/uL (0.0-0.012); NRBC Pct Auto 0.0 /100WBC (0.0-0.2); Platelet Count 160 X10*3/uL (160-400); Red Blood Count 4.66 X10*6/uL (4.60-5.80); White Blood Count 2.6 X10*3/uL (4.8-10.8)
[2025-01-13 13:15] LABS: Hemoglobin A1C 183.2321 umol/L; Total Hemoglobin (HGBA1C) 3577.5773 umol/L
[2025-01-13 13:53] LABS: Alanine Aminotransferase 45 U/L (0-40); Albumin Level 4.0 g/dL (3.5-5.0); Alkaline Phosphatase 83 U/L (39-117); Anion Gap 12 (12-20); Aspartate Amino Transferase 23 U/L (5-37); Blood Urea Nitrogen 12 mg/dL (9-16); Calcium 8.6 mg/dL (8.4-10.2); Carbon Dioxide 26 mmol/L (22-29); Chloride 107 mmol/L (96-108); Cholesterol 158 mg/dL (<200); Estimated Glomerular Filt Rate > 60; HDL Cholesterol 69 mg/dL (>40); Potassium 4.0 mmol/L (3.3-5.1); Sodium 141 mmol/L (135-145); Total Protein 6.5 g/dL (6.5-8.0); Triglycerides 40 mg/dL (<150)
[2025-01-13 13:56] LABS: Appearance Urine Clear; Glucose Urine UA Negative (Negative); PH 5.5 (5.0-9.0); Specific Gravity - Urine 1.015 (1.005-1.025)
== END 2025-01-13 11:09 | disposition home or self-care (01) ==
LOC: HO.LAB 11:08
PROVIDERS: PCP Internal Medicine; Visit Provider Internal Medicine
DX: R30.0 Dysuria (principal); D64.9 Anemia, unspecified; E11.9 Type 2 diabetes mellitus without complications; E55.9 Vitamin D deficiency, unspecified; E78.00 Pure hypercholesterolemia, unspecified
CPT/HCPCS: 36415; 80053; 80061; 81003; 82043; 82306; 82570; 83036; 84443; 85025

== ENCOUNTER 2025-01-17 12:26 | Outpatient (AMB) | payer OTHER, SELFPAY ==
[2025-01-17 12:41] VITALS: BP 122/80; PULSE 88; O2SAT 95; BMI 40.5
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
== END 2025-01-17 13:32 | disposition home or self-care (01) ==
LOC: HO.HMCH 12:27
PROVIDERS: Visit Provider Internal Medicine
DX: J84.10 Pulmonary fibrosis, unspecified (principal); J44.9 Chronic obstructive pulmonary disease, unspecified; E11.9 Type 2 diabetes mellitus without complications; C61 Malignant neoplasm of prostate; E66.9 Obesity, unspecified; Z68.41 Body mass index [BMI] 40.0-44.9, adult; I25.10 Atherosclerotic heart disease of native coronary artery without angina pectoris; E78.00 Pure hypercholesterolemia, unspecified; I10 Essential (primary) hypertension; R22.32 Localized swelling, mass and lump, left upper limb; M51.360 Other intervertebral disc degeneration, lumbar region with discogenic back pain only; M19.041 Primary osteoarthritis, right hand

== ENCOUNTER → 2025-01-17 12:26 | Outpatient (BNVA) | payer OTHER, SELFPAY | PROVIDERS: Visit Provider Internal Medicine | DX: I25.10 Atherosclerotic heart disease of native coronary artery without angina pectoris (principal); J84.10 Pulmonary fibrosis, unspecified; J44.9 Chronic obstructive pulmonary disease, unspecified; E11.9 Type 2 diabetes mellitus without complications; E78.00 Pure hypercholesterolemia, unspecified; I11.0 Hypertensive heart disease with heart failure; I50.9 Heart failure, unspecified; R22.32 Localized swelling, mass and lump, left upper limb; C61 Malignant neoplasm of prostate; M51.360 Other intervertebral disc degeneration, lumbar region with discogenic back pain only; M19.041 Primary osteoarthritis, right hand; M19.042 Primary osteoarthritis, left hand; M17.0 Bilateral primary osteoarthritis of knee; K21.9 Gastro-esophageal reflux disease without esophagitis; E55.9 Vitamin D deficiency, unspecified; E66.9 Obesity, unspecified; Z68.41 Body mass index [BMI] 40.0-44.9, adult | CPT/HCPCS: 96127; 99212 ==

== ENCOUNTER 2025-02-06 08:32 | Outpatient (AMB) | payer OTHER, SELFPAY ==
--- NOTE | 2025-02-06 08:35 | MHC.OFFVIS ---
Vital Signs 02/06/25 08:44 Height 5 ft 10 in Weight 273 lb 5.971 oz BMI 39.2 BP 129/77 Blood Pressure Location Lt brachial Position Sitting Pulse 91 Intake Visit Reasons: 1 yr follow up Intake Note: Kd presents in the office as a 1 year follow up. CC: States that he is having dizziness and upset stomach. When he woke up today he was sweaty - he sat in the bed and got dizzy. He states that he did not take any of his medications this morning. Interviewing Clerk Required: Yes Interviewing Clerk Name: [id number] Allergies No Known Allergies Allergy (Verified 02/06/25 08:47) HPI Comments Details: This is a 56-year-old gentleman with past medical history of interstitial lung disease (likely from pneumoconiosis versus sarcoidosis), obesity, type 2 diabetes, hypertension, LUIS, who presents to the office for follow up after EGD. 03/10/22: Patient presents to the office accompanied by his , who also helps with the interpretation. Used to get his gastrointestinal care in [place] (Dr. Alf Jeornimo). Most recent colo 2020 with 2 polyps and repeat recommended in 5 years. He reports never having an upper endoscopy. Reports intermittent heartburn 3 to 4 times a month, managed with Tums. Triggered by spicy or fatty food. Denies any nausea, vomiting, regurgitation, difficulty or painful swallowing, abdominal pain. No unintentional weight loss. No changes in appetite. No changes in bowel habits. Patient recently had a CT chest through his can dryer office that showed small hiatal hernia. As he has significant interstitial lung disease, he has been referred to our office for evaluation and management of reflux disease. 06/25/22 - EGD Normal esophagus Gastritis (biopsy) Gastric ulcer (biopsy) ? Portal hypertensive gastropathy Peptic duodenitis (biopsy) Path: A.? Duodenum, biopsy:? Chronic active duodenitis. B.? Stomach, edge of ulcer, biopsy: - Antral-type mucosa with moderate chronic inactive inflammation and regenerative changes. - Positive for H pylori. C.? Stomach, random, biopsy: - Antral-type and oxyntic mucosa with moderate chronic, focally active, inflammation and focal intestinal metaplasia; no dysplasia identified. - Positive for H pylori. 07/14/22: Reports improvement in intermittent burning since starting the omeprazole. EGD and biopsy findings reviewed. Patient does not report any history of smoking, social alcohol use, no NSAID use. No family history of gastric cancer. We also reviewed that some endoscopic features were suggestive of portal hypertensive gastropathy, although no features seen on histology. LFTs were normal as well. Regardless, will obtain an ultrasound liver to further evaluate, as he is at risk for fatty liver disease. This is scheduled for next Thursday. 11/06/22: EGD: Irregular salmon colored mucosa above the GE junction suspicious for Lu's esophagus (biopsy, WATS) Healing gastric ulcer (biopsy) Hiatal hernia Normal duodenum Path: A.? Stomach, healing gastric ulcer, biopsy:? Antral-type mucosa with moderate chronic, focally active, inflammation, regenerative changes and scattered non-necrotizing granulomata; no Helicobacter organisms seen. B.? EG junction, biopsy: - Cardiac-type mucosa with moderate chronic inactive inflammation and small non-necrotizing granuloma; no intestinal metaplasia seen. - Chronic esophagitis. COMMENT: The differential for the granulomata includes sarcoid, upper tract involvement by Crohns and infection. 11/21/22: Seen with the help of a live gas load dispatcher. Currently reports no gastrointestinal complaints. No abd pain, N,V, heart burn. EGD results and path reviewed with the pt. Reassured that no metaplasia or precancerous changes noted. H pylori treated as discussed before. Bx and WATS negative for lu's as well. 12/09/23: Colonoscopy (Dr Hankins): Excellent prep. x3 tubular adenoma. Cecum: A 4-5 mm sessile polyp - remove with a cold biopsy Ascending Colon: A 10-12 mm sessile polyp in the proximal AC - removed with a stiff hot snare. A 2 cms sessile polyp at 100 cms in the distal AC. Polyp was behind a fold and difficult to access. 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 Treated with APC. Ano-rectum: Moderate internal hemorrhoids Path: A. Colon, cecal polyp: Polypoid colonic mucosa with no adenomatous dysplasia seen on initial levels (see comment). B. Colon, ascending, polyp: Colonic mucosa with thermal/crush artifact and no adenomatous dysplasia seen on initial levels (see comment). C. Colon, distal ascending, polyp: Sessile serrated lesion/polyp without dysplasia. B): Additional levels show features consistent with a hyperplastic polyp. Comment: (B): A sessile serrated lesion/polyp cannot be ruled out in any residual lesion and follow-up is warrante 02/08/24: Reuslts reveiwed with the pt. Currently no recurrence in rectal bleeding since APC tx. Feels well, no acute GI issues today. Results of the polyps reviewed, he is aware of the need for repeat colo in 5 years. 02/06/25: Here for routine 1 year follow up. No further rectal bleeding. No abd complaints. Reports acute onset of lightheadedness and vomiting this morning. Assoc with vertigo but no vision changes or tinnitus. This was withotu any abd pain, chest pain, diarrhea. [facility] Medical History (Updated 02/06/25 @ 10:44 by Grisel Deng MD) Vitamin D deficiency DMII (diabetes mellitus, type 2) Lipoma of left upper extremity Osteoarthritis of both hands Asthma-COPD overlap syndrome Personal history of colonic polyps Pre-op chest exam Left knee pain Annual physical exam Obese Pulmonary nodules Hiatal hernia Obesity (BMI 30-39.9) Benign essential hypertension Pure hypercholesterolemia Diabetes mellitus Coronary artery disease LUIS (obstructive sleep apnea) Chronic cough Degenerative disc disease Lung fibrosis Bronchial asthma Surgical History (Updated 02/06/25 @ 08:48 by GEOVANI Bender) History of ankle surgery Hx of prostate biopsy History of esophagogastroduodenoscopy (EGD) Hx of colonoscopy S/P arterial stent Social History Housing: Apartment Alcohol intake: current Alcohol intake frequency: holidays/special occasions only Patient Tobacco Use Status: Never used Tobacco e-Cigarette/Vaping Use: Never Used Second Hand Smoke Exposure: No Substance Use Type: Marijuana service: No Current occupational status: disabled Cognitive needs: No Hearing needs: No Vision needs: Yes Review of Systems Const All systems reviewed & are unremarkable except as noted in HPI and below Physical Exam Exam Exam: No apparent distress Nonicteric Abdomen soft, nondistended, nontender Alert and oriented x3, uses a cane Vital Signs: Last Vital Signs Pulse 91 02/06/25 08:44 BP 129/77 02/06/25 08:44 BMI result Body Mass Index 39.2 Assessment & Plan Assessment & Plan (1) GERD (gastroesophageal reflux disease): Code(s): K21.9 - Gastro-esophageal reflux disease without esophagitis Category: Medical Qualifiers: Esophagitis presence: without esophagitis Qualified Code(s): K21.9 - Gastro-esophageal reflux disease without esophagitis (2) Diabetes mellitus: Code(s): E11.9 - Type 2 diabetes mellitus without complications Category: Medical Qualifiers: Diabetes mellitus complication status: without complication Diabetes mellitus adjunct faculty for medical terminology insulin use: without adjunct faculty for medical terminology use Diabetes mellitus type: type 2 Qualified Code(s): E11.9 - Type 2 diabetes mellitus without complications (3) Acute vomiting: Code(s): R11.10 - Vomiting, unspecified Category: Medical (4) Vertigo: Code(s): R42 - Dizziness and giddiness Category: Medical Plan Has acute onset of vomiting with vertiginous symptoms since this morning. Discussed with the patient that less likely to be GI related, will obtain CBC and CMP to rule out hyperglycemia, hyponatremia, renal injury etc as metabolic causes. May need further evaluation through PCP office depending on results. Upper endoscopy not indicated for acute nausea/vomiting but can be considered if nausea and vomiting persist > 1 week. Orders: Orders Complete Blood Count no Diff Today R11.10 - Vomiting, unspecified Comprehensive Met. Panel Today R11.10 - Vomiting, unspecified TSH reflex Free T4 Today R11.10 - Vomiting, unspecified Coding Level of Care Code Est Pt Level 4 (57294) Diagnoses Gastroesophageal reflux disease without esophagitis K21.9 Esophagitis presence: without esophagitis Type 2 diabetes mellitus without complication, without long-term current use of insulin E11.9 Diabetes mellitus complication status: without complication Diabetes mellitus adjunct faculty for medical terminology insulin use: without fdc use Diabetes mellitus type: type 2 Acute vomiting R11.10 Vertigo R42
[2025-02-06 08:44] VITALS: BP 129/77; PULSE 91; BMI 39.2
== END 2025-02-06 10:00 | disposition home or self-care (01) ==
LOC: HO.HGI 08:33
PROVIDERS: PCP Internal Medicine; Visit Provider Internal Medicine
DX: K21.9 Gastro-esophageal reflux disease without esophagitis (principal); E11.9 Type 2 diabetes mellitus without complications; R11.10 Vomiting, unspecified; R42 Dizziness and giddiness
CPT/HCPCS: 99214

== ENCOUNTER 2025-02-06 08:32 | Outpatient (REF) | payer OTHER, SELFPAY ==
[2025-02-06 11:16] LABS: Hemoglobin 14.5 g/dl (14.0-18.0); Mean Corpuscular HGB Conc 34.4 g/dl (31.0-36.0); Mean Corpuscular Volume 88.3 fL (80.0-98.0); NRBC Abs Auto 0.000 X10*3/uL (0.0-0.012); NRBC Pct Auto 0.0 /100WBC (0.0-0.2); PLT CLUMP 1
[2025-02-06 11:18] LABS: Hematocrit 42.1 % (42.0-52.0); Mean Corpuscular Hemoglobin 30.4 pg (27.0-33.0); Red Blood Count 4.77 X10*6/uL (4.60-5.80)
[2025-02-06 11:20] LABS: White Blood Count 4.3 X10*3/uL (4.8-10.8)
[2025-02-06 12:02] LABS: Alanine Aminotransferase 32 U/L (0-40); Albumin Level 4.4 g/dL (3.5-5.0); Alkaline Phosphatase 69 U/L (39-117); Anion Gap 15 (12-20); Aspartate Amino Transferase 26 U/L (5-37); Blood Urea Nitrogen 15 mg/dL (9-16); Calcium 8.6 mg/dL (8.4-10.2); Carbon Dioxide 23 mmol/L (22-29); Chloride 109 mmol/L (96-108); Estimated Glomerular Filt Rate > 60; Potassium 4.0 mmol/L (3.3-5.1); Sodium 143 mmol/L (135-145); Total Protein 6.9 g/dL (6.5-8.0)
== END 2025-02-06 08:33 | disposition home or self-care (01) ==
LOC: HO.LAB 08:32
PROVIDERS: PCP Internal Medicine; Visit Provider Internal Medicine
DX: K21.9 Gastro-esophageal reflux disease without esophagitis (principal); E11.9 Type 2 diabetes mellitus without complications; R42 Dizziness and giddiness
CPT/HCPCS: 36415; 80053; 84443; 85027; 99212

== ENCOUNTER 2025-02-07 07:14 | Day surgery (SDC) | payer OTHER, SELFPAY ==
--- OUTSIDE RECORDS SUMMARY | 2024-11-28 13:56 | XMS_ITS | Data Portability ---
Author Organization [facility] Address [address] [place] [address] Care Team Providers Care Policy Service Coordinator Name Role Phone HIM CCA OTHER SO SIMS Primary Care Provider [phone] Assessment Encounter Date Assessment Date Assessment LastModified by Organization Details LastModified Time 07/01/2024 07/01/2024 I provided real -time medical direction via phone for this encounter and was available for additional phone-based assistance as needed. I have reviewed and agree with the Assessment and Plan as documented by the Veneer Marker. Patient given the opportunity to ask questions. [...] has had no fever or chills. Per assistant football coach on the scene, vital signs stable patient [...] 5 96 % 96 % 14 /min 726378. 8 g 98.9 [degF] 91 /min 177.8 cm 136/81 mm[Hg] Not Available [facility] - production 5 20:44:55 Date Recorded Respiratory rate Heart rate Body temperature Oxygen saturation Oxygen saturation in Arterial blood by Pulse oximetry Systolic And Diastolic Provider Name and Address Organization Details Last Updated DateTime 5 16 /min 88 /min 98 [degF] 95 % 95 % 154/82 mm[Hg] Not Available [facility] - production 5 17:42:57 Social History None recorded. Functional Status None recorded. Mental Status None recorded. Family History Nothing Reported. Medical History No medical history recorded. Past Encounters Encounter ID Performer Location Encounter Start Date Encounter Closed Date Diagnosis/Indication Diagnosis SNOMED-CT Code Diagnosis ICD10 Code Diagnosis Note [id number] Viola Martinez MD [facility] [address] [place] [address] [phone] 07/01/2024 20:34:27 07/02/2024 19:21:24 Wound of skin [id number] T14.8XXA [id number] Bianca Nixon MD [facility] [address] [place] [address] [id number] 08/10/2024 17:42:53 08/10/2024 19:31:10 Tooth disorder [id number] K08.9 59 year old male with poor [...] assessment and plan as documented by the assistant football coach. I provided real-time medical direction for this [...] Date Sequence Insurance Name Policy Number Policy Nleson Covered Member ID Nelson Member ID Guarantor Name 08/10/2024 1 [employer] - DOS ON OR AFTER 2022 - DUAL ELIGIBLE - FPC OPTIONS AND ONE CARE (MEDICARE REPLACEMENT/ADV ANTAGE - HMO) Kd Rajan [id number]
--- NOTE | 2025-02-03 12:12 | P.CONAN_ITS ---
Documented by User: Liudmila Davey NP 02/03/25 12:20 HPI - Anesthesia Eval Consult details Narrative: 59yo M for Right Excision Lipoma of Axilla Pulmo optimized to proceed. Follows [facility] [place] pulmo. Stable at last visit (inhaler rx change). PFT show moderate obstruction - report not available Follows [facility] [place] cardiology for CAD s/p stent 2018, htn. Stable at 11/2024 office visit for 1 year f/u. Bilateral LE edema r/t and amlodipine - echo [place] PMFSH Active Problems Active Problems: All Active Problems Edema (Acute) Vitamin D deficiency (Acute) Lipoma of left upper extremity (Acute) Subcutaneous mass of left forearm (Acute) Radiation proctitis (Acute) Closed left ankle fracture (Acute) Osteoarthritis of knees, bilateral (Acute) Osteoarthritis of both hands (Acute) Bilateral knee pain (Acute) Rectal bleeding (Acute) Blood in stool (Acute) Prostate cancer (Acute) Urinary incontinence (Acute) Osteoarthritis of knee (Acute) Lumbar degenerative disc disease (Acute) Status post fall (Acute) Left shoulder pain (Acute) Hot flashes related to aromatase inhibitor therapy (Acute) Leukopenia (Acute) Hospital discharge follow-up (Acute) Asthma-COPD overlap syndrome (Acute) Non-caseating granuloma (Acute) Prostate cancer (Acute) Stented coronary artery (Acute) Metabolic syndrome (Acute) Gastric ulcer (Acute) H. pylori infection (Acute) Arthralgia of both hands (Acute) Elevated PSA (Acute) GERD (gastroesophageal reflux disease) (Acute) BPH (benign prostatic hyperplasia) (Acute) Hand arthritis (Acute) Enlarged prostate (Acute) Pulmonary fibrosis (Acute) HLD (hyperlipidemia) (Acute) Pulmonary nodules (Acute) Hiatal hernia (Acute) Hiatal hernia (Acute) Obesity (BMI 30-39.9) (Acute) Benign essential hypertension (Acute) Pure hypercholesterolemia (Acute) Diabetes mellitus (Acute) Coronary artery disease (Acute) LUIS (obstructive sleep apnea) (Acute) Chronic cough (Acute) Degenerative disc disease (Acute) Past Medical History Medical History Vitamin D deficiency DMII (diabetes mellitus, type 2) Lipoma of left upper extremity Osteoarthritis of both hands Asthma-COPD overlap syndrome Personal history of colonic polyps Pre-op chest exam Left knee pain Annual physical exam Obese Pulmonary nodules Hiatal hernia Obesity (BMI 30-39.9) Benign essential hypertension Pure hypercholesterolemia Diabetes mellitus Coronary artery disease LUIS (obstructive sleep apnea) Chronic cough Degenerative disc disease Lung fibrosis Bronchial asthma Family History Family history of problems with anesthesia: No Surgical History Surgical History History of ankle surgery Hx of prostate biopsy History of esophagogastroduodenoscopy (EGD) Hx of colonoscopy S/P arterial stent History of Problems with Anesthesia: No Social History Social History Housing: Apartment Alcohol intake: current Alcohol intake frequency: holidays/special occasions only Patient Tobacco Use Status: Never used Tobacco e-Cigarette/Vaping Use: Never Used Second Hand Smoke Exposure: No Substance Use Type: Marijuana Advance Directives: No Advance Directives Information Provided: Yes service: No Current occupational status: disabled Cognitive needs: No Hearing needs: No Vision needs: Yes Meds Allergies Allergy/AdvReac Type Severity Reaction Status Date / Time No Known Allergies Allergy Verified 02/07/25 08:48 Home Medications ?Medication ?Instructions ?Recorded ?Confirmed ?Last Taken ?Type nebulizers 07/07/23 02/07/25 Unknown H istory Exam Pertinent Lab Results Pertinent Lab Results: Laboratory Tests 01/13/25 11:39 WBC 2.6 L Hgb 14.1 Hct 41.0 L Plt Count 160 D Sodium 141 Potassium 4.0 Chloride 107 Carbon Dioxide 26 BUN 12 Creatinine 0.88 Narrative Narrative: ECHO 12/2024 Conclusions: - 1. Low normal LV EF of 50-55% 2. Normal cardiac valvular Dopplers 3. Normal RV systolic pressure EKG 11/2024 normal sinus rhythm with PVC with right atrial enlargement Assessment and Plan Assessment Anesthesia Assessment: Chart Reviewed Final Anesthetic Review Family History of Problems with Anesthesia: No History of Problems with Anesthesia: No Documented by User: Richardson Pabon MD 02/07/25 10:37 PMFSH Past Medical History Medical History Vitamin D deficiency DMII (diabetes mellitus, type 2) Lipoma of left upper extremity Osteoarthritis of both hands Asthma-COPD overlap syndrome Personal history of colonic polyps Pre-op chest exam Left knee pain Annual physical exam Obese Pulmonary nodules Hiatal hernia Obesity (BMI 30-39.9) Benign essential hypertension Pure hypercholesterolemia Diabetes mellitus Coronary artery disease LUIS (obstructive sleep apnea) Chronic cough Degenerative disc disease Lung fibrosis Bronchial asthma Surgical History Surgical History History of ankle surgery Hx of prostate biopsy History of esophagogastroduodenoscopy (EGD) Hx of colonoscopy S/P arterial stent Social History Social History Housing: Apartment Alcohol intake: current Alcohol intake frequency: holidays/special occasions only Patient Tobacco Use Status: Never used Tobacco e-Cigarette/Vaping Use: Never Used Second Hand Smoke Exposure: No Substance Use Type: Marijuana Advance Directives: No Advance Directives Information Provided: Yes service: No Current occupational status: disabled Cognitive needs: No Hearing needs: No Vision needs: Yes Meds Allergies Allergy/AdvReac Type Severity Reaction Status Date / Time No Known Allergies Allergy Verified 02/07/25 08:48 Home Medications ?Medication ?Instructions ?Recorded ?Confirmed ?Last Taken ?Type nebulizers 07/07/23 02/07/25 Unknown H istory Exam Exam Date and Time: 02/07/2025 Airway Mallampati Class: II TM Dist: >3cm Neck ROM: Full Loose/Missing/Broken Teeth: No Heart: RRR Lungs: ctab Assessment and Plan Assessment Anesthesia Assessment: Anesthesia Plan Discussed Final Anesthetic Review NPO: Yes ASA Class: III Final Preanesthetic Review: No Changes in Pt Med Stat, Meds/Allgs Chart Reviewed, Consent Obtained/Reviewed and Anes Risks/Benef Reviewed Patient Risk: Intermediate Procedure Risk: Low Anesthetic Plan Anesthetic Plan: GA Disposition: Standard PACU
[2025-02-07 08:09] LABS: Glucose, Whole Blood 130 mg/dL (60-115)
[2025-02-07] MEDS: Lactated Ringers 1,000 ML 100 ML IVCONT (08:24)
[2025-02-07 08:31] VITALS: BP 147/78; PULSE 68; RESP 18; TEMP 36.6; O2SAT 97
[2025-02-07 08:34] VITALS: BMI 41.0
--- NOTE | 2025-02-07 09:32 | MHC.SHP ---
Pre-Procedural Eval Section A - 24 Hr Update-Section A only Date of Service: 02/07/25 Section B - Complete if H&P > 30 days Chief Complaint: Benign lipomatous neoplasm skin and subcut tissue Details of Present Illness: Has a large lipoma the left arm Relevant Social History: None Present Medications: see Short Stay Collaborative assessment Medical History: Significant History (Osteoarthritis, prostate cancer, coronary artery disease, GERD, hyperlipidemia, obesity, hypertension, sleep apnea) Allergies: Allergies Allergy/AdvReac Type Severity Reaction Status Date / Time No Known Allergies Allergy Verified 02/07/25 08:48 Review of Systems Sugical H&P ROS: Negative: Constitution, Cardiovascular and Respiratory Exam Surgical H&P Exam: Normal: Heart, Normal: Lungs and Normal: Abdomen and Significant Findings: Extremities (Large lipoma left forearm extending proximally) Plan Diagnosis/Plan: Unchanged I have reviewed the history and physical and performed a pertinent physical examination on my patient. No changes have occurred unless specified. Time Spent With Patient Time: Total time managing care of this patient today ____ minutes.
[2025-02-07 11:00] VITALS: BP 137/82; PULSE 87; RESP 10; TEMP 36.5; O2SAT 97
--- NOTE | 2025-02-07 11:01 | W.PM.OPN ---
Operative Note Operative Note Date of Service: 02/07/25 Narrative: Preop diagnosis: Large lipoma, left arm Postop diagnosis: Large intramuscular lipoma, left arm Procedure: Excision of a large intramuscular lipoma, left arm under anesthesia Surgeon: Mayank Canales MD clinical data assistant: ANTONIA Burciaga The patient is a 59-year-old male with a large lipoma of the left forearm extending to just past the elbow. This has with the technique of excision under anesthesia. He was aware of the risks, benefits, and alternatives He was brought to the operating room. He was placed supine under anesthesia via laryngeal mask airway. The left arm was abducted. A surgical time-out was done The patient received cefazolin 2 g IV preoperatively The left arm was prepped and draped in the usual sterile fashion. I marked the planned line of incision and infiltrated this has lidocaine 1%. I made a longitudinal incision on the skin overlying the lipoma with a blade 15. This carried down with electrocautery through the full-thickness of the skin subcutaneous fat. I divided the fascia to enter the muscle compartment. I did muscle separation of the fibers and was able to visualize the large lipoma. I gently this with the rest of the muscle fibers circumferentially. I did some sharp dissection as well with electrocautery. We we are able to completely separate this lipoma from the rest of the muscle fibers The lipoma measured about 10 cm long by 5 cm wide I irrigated. I reapposed the fascia with Polysorb 3-0 simple interrupted sutures. Skin closure was achieved with nylon 3-0 simple interrupted sutures. Dressings were applied and the procedure was completed The patient tolerated procedure well. There were no immediate complications. There was minimal blood loss. The patient was extubated and transferred to the recovery room with stable vital signs.
[2025-02-07 11:05] VITALS: BP 125/77; PULSE 91; RESP 17; O2SAT 98
[2025-02-07 11:10] VITALS: BP 132/88; PULSE 86; RESP 16; O2SAT 97
[2025-02-07 11:15] VITALS: BP 127/81; PULSE 86; RESP 15; O2SAT 98
[2025-02-07 11:30] VITALS: BP 128/80; PULSE 78; RESP 16; O2SAT 98
== END 2025-02-07 13:05 | disposition home or self-care (01) ==
PROVIDERS: PCP Internal Medicine; Visit Provider Surgery
PROC: (CPT 25073; principal; 2025-02-07 10:20)
DX: D17.22 Benign lipomatous neoplasm of skin and subcutaneous tissue of left arm (principal); I25.10 Atherosclerotic heart disease of native coronary artery without angina pectoris; Z95.5 Presence of coronary angioplasty implant and graft; I10 Essential (primary) hypertension; E11.9 Type 2 diabetes mellitus without complications; E78.00 Pure hypercholesterolemia, unspecified; J84.10 Pulmonary fibrosis, unspecified; J45.909 Unspecified asthma, uncomplicated; E66.9 Obesity, unspecified; R91.8 Other nonspecific abnormal finding of lung field; Z68.41 Body mass index [BMI] 40.0-44.9, adult; G47.33 Obstructive sleep apnea (adult) (pediatric); Z79.82 Long term (current) use of aspirin; Z79.51 Long term (current) use of inhaled steroids; Z79.84 Long term (current) use of oral hypoglycemic drugs; Z79.899 Other long term (current) drug therapy
CPT/HCPCS: 25073; 82947; 88304; J0131; J0690; J1171; J2003; J2405; J2704; J2795; J3010

== ENCOUNTER → 2025-02-07 07:14 | Outpatient (BNV) | payer OTHER, SELFPAY | PROVIDERS: PCP Internal Medicine; Visit Provider Surgery | DX: D17.22 Benign lipomatous neoplasm of skin and subcutaneous tissue of left arm (principal) | CPT/HCPCS: 11406 ==

== ENCOUNTER 2025-02-20 09:57 | Outpatient (AMB) | payer OTHER, SELFPAY ==
--- NOTE | 2025-02-20 10:01 | A.OFFVIS_ITS ---
Vital Signs 3 02/20/25 10:09 Weight 283 lb BP 140/84 H Blood Pressure Location Rt brachial Position Sitting Pulse 96 Intake Visit Reasons: S/P excision lipoma Rt. axilla Intake Note: Patient here s/p lipoma exicision on Lt forearm. Patient c/o: reports incision site healing well. Denies pain, oozing. WLE (): 02-07-2025 Auto Electrician Required: No Accompanied by: Self / Same As Patient Allergies No Known Allergies Allergy (Verified 02/20/25 10:02) HPI HPI S/P excision lipoma Rt. axilla: Details: advertising executive Teodora used for this evaluation. He reports he is doing well he had a family member brought face time who had some questions regarding the pathology and suture removal. He reports he is doing well denies pain. Does endorse some swelling of the forearm. Denies drainage or redness. Denies fevers at home. He reports that the incision is itchy PFS Medical History Vitamin D deficiency DMII (diabetes mellitus, type 2) Lipoma of left upper extremity Osteoarthritis of both hands Asthma-COPD overlap syndrome Personal history of colonic polyps Pre-op chest exam Left knee pain Annual physical exam Obese Pulmonary nodules Hiatal hernia Obesity (BMI 30-39.9) Benign essential hypertension Pure hypercholesterolemia Diabetes mellitus Coronary artery disease LUIS (obstructive sleep apnea) Chronic cough Degenerative disc disease Lung fibrosis Bronchial asthma Surgical History (Updated 02/20/25 @ 10:11 by GEOVANI Mendoza) Hx of surgical procedure (02/07/25) History of ankle surgery Hx of prostate biopsy History of esophagogastroduodenoscopy (EGD) Hx of colonoscopy S/P arterial stent Social History Housing: Apartment Are you a primary human services care specialist to a significant other at home: No Do you presently have visiting nurse or other home services: No Alcohol intake: current Alcohol intake frequency: holidays/special occasions only Comment: Counts correct Patient Tobacco Use Status: Never used Tobacco e-Cigarette/Vaping Use: Never Used Second Hand Smoke Exposure: No Substance Use Type: Marijuana service: No Current occupational status: disabled Cognitive needs: No Hearing needs: No Vision needs: Yes Review of Systems Const All systems reviewed & are unremarkable except as noted in HPI and below Physical Exam Vital Signs: Last Vital Signs Pulse 96 02/20/25 10:09 BP 140/84 H 02/20/25 10:09 Const General: comfortable and no acute distress Orientation/consciousness: patient oriented x3 Resp Effort & Inspection: normal respiratory effort and able to speak in complete sentences Skin Other: Left forearm Full body images: 2 1. Lipoma excision site: Clean dry and intact some mild swelling in the anterior forearm no palpable fluid collection. Sutures in place, removed in office Scant serous discharge after suture removal. Superficial separation of the incision site after suture removal Neuro General: patient oriented x3 Assessment & Plan Assessment & Plan (1) Lipoma of left upper extremity: Code(s): D17.22 - Benign lipomatous neoplasm of skin and subcutaneous tissue of left arm Category: Medical Plan 59-year-old male s/p excision of intramuscular lipoma on the left forearm on 02/[address] Canales returning to the office for wound check and suture removal. Overall patient thinks he is doing well. Not experiencing pain does have some swelling in the forearm laterally to the excision site. There has been no drainage, no fevers at home, no redness around the incision site. We reviewed the pathology reports with the patient and his family member on face time, results as follows: Mature lobulated adipose tissue admixed with a benign skeletal muscle consistent with intramuscular lipoma, no atypia identified. Patient and family member were relieved there was nothing to be concerned about with the pathology. On exam the incision site appears to be healing well, there was some mild swelling in the forearm localized around the incision site. There was no warmth, no fluctuance, does not appear infected at this time. I removed the sutures in the office. There were some superficial separation of the wound in the middle 3rd with some scant serous discharge noted. I reinforced this area with Mastisol and Steri-Strips, instructed to keep these on for about 5 days. Once they are beginning to fall off at the edges patient is okay to remove these. He is okay to shower. I did recommend he do some warm compress 3 times a day to help with the swelling. At this point no longer requiring follow up, he can follow up presenting to balloon concerns. He did note that he is going on vacation on Thursday to [place] and will not be local for the foreseeable future. I discussed emergency department precautions, if he begins having constant pain, fevers, redness worsening swelling, warmth, purulent discharge, odor. He understands this Coding Level of Care Code Est Pt Level 3 (03131) Diagnoses Lipoma of left upper extremity D17.22
[2025-02-20 10:09] VITALS: BP 140/84; PULSE 96
== END 2025-02-20 10:21 | disposition home or self-care (01) ==
LOC: HO.HGS 09:58
DX: D17.22 Benign lipomatous neoplasm of skin and subcutaneous tissue of left arm (principal)
CPT/HCPCS: 99213

== ENCOUNTER → 2025-02-20 09:57 | Outpatient (BNVA) | payer OTHER, SELFPAY | DX: D17.22 Benign lipomatous neoplasm of skin and subcutaneous tissue of left arm (principal) | CPT/HCPCS: 99212 ==

== ENCOUNTER 2025-02-22 07:44 | Outpatient (REF) | payer OTHER, SELFPAY ==
--- OUTSIDE RECORDS SUMMARY | 2025-02-22 07:48 | XMS_ITS | Data Portability ---
Author Organization [employer] [facility], [facility] Address [address] [place] [address] Care Team Providers Care Paper Sample Clerk Name Role Phone HIM CCA OTHER SO SIMS Primary Care Provider Assessment Encounter Date Assessment Date Assessment LastModified by Organization Details LastModified Time 07/01/2024 07/01/2024 I provided real -time medical direction via phone for this encounter and was available for additional phone-based assistance as needed. I have reviewed and agree with the Assessment and Plan as documented by the Parking Lot Laborer. Patient given the opportunity to ask questions. [...] has had no fever or chills. Per rf technician on the scene, vital signs stable patient [...] 5 96 % 96 % 14 /min 843925. 8 g 98.9 [degF] 91 /min 177.8 cm 136/81 mm[Hg] Not Available [employer] - production 5 20:44:55 Date Recorded Respiratory rate Heart rate Body temperature Oxygen saturation Oxygen saturation in Arterial blood by Pulse oximetry Systolic And Diastolic Provider Name and Address Organization Details Last Updated DateTime 5 16 /min 88 /min 98 [degF] 95 % 95 % 154/82 mm[Hg] Not Available [employer] - production 5 17:42:57 Social History None recorded. Functional Status None recorded. Mental Status None recorded. Family History Nothing Reported. Medical History No medical history recorded. Past Encounters Encounter ID Performer Location Encounter Start Date Encounter Closed Date Diagnosis/Indication Diagnosis SNOMED-CT Code Diagnosis ICD10 Code Diagnosis IMO Codes Diagnosis Note [id number] Viola Martinez MD [facility] - [facility] [address] [place] [phone] 07/01/2024 20:34:27 07/02/2024 19:21:24 Wound of skin [id number] T14.8XXA [id number] Bianca Nixon MD Main - [facility] [address] [place] [address] 08/10/2024 17:42:53 08/10/2024 19:31:10 Tooth disorder [id number] K08.9 [id number] 59 year old male with poor dentition, [...] assessment and plan as documented by the rf technician. I provided real-time medical direction for this [...] Nelson Member ID Guarantor Name 08/10/[address] [facility] - DOS ON OR AFTER 2022 - DUAL ELIGIBLE - [facility] OPTIONS AND ONE CARE (MEDICARE REPLACEMENT/ADV ANTAGE - HMO) Kd Rajan [id number] Kd Rajan Notes Date Note Type Note [...] ..................... ..................... ..................... ..................... ..................... ..................... ............... Parking Lot Laborer Note From Daniel Millan: [facility] makes pt contact a 59 yo M W/ CC of blisters around a surgery site after removal of a cast. [facility] obtains consent and uploads electronically. [facility] obtains vital signs and pictures of area of question, pictures sent to [facility] via [employer]. PT explains that pt Fx tibia and ankle shifted position while in [place]. When pt returned to [place] and was reevaluated surgery was performed to [...] walking to help support the injured area. [facility] contacts [facility] and explains above mentioned. [facility] recommends pt heavily moisturize the dry skin to prevent further blisters, PT is advised to reduce any type of trauma to the leg such as the boot or socks. [facility] advises blisters will pop on their own but Dr will reach out to wound care to try and get them out there to manage the wounds for the time being. PT is advised to look out for infection such as cellulitis, redness, or any signs of fever. PT and understand. [facility] clears. ..................... ..................... ..................... ..................... ..................... ..................... ............... [facility] Consulted: Viola Martinez ..................... ..................... ..................... ..................... ..................... ..................... ............... Disposition: Fulfilled Viola Martinez MD [address] [facility],[address], [place], [address], [place] FAYE - KIP GILBERT 07/02/2024 08:02:17 08/10/2024 text/html CRC Nurse Triage [...] ..................... ..................... ..................... ..................... ..................... ..................... ............... Parking Lot Laborer Note From Isaac Oropeza: Encountered patient conscious [...] had a tooth dislodge from the gum. [facility] contacted: states patient would most benefit from [...] ..................... ..................... ..................... ..................... ..................... ..................... ............... [facility] Consulted: Bianca Nixon ..................... ..................... ..................... ..................... ..................... ..................... ............... Disposition: Fulfilled Bianca Nixon MD [address] [place] [address],[address], [place], [address], KIP MARCUS 08/10/2024 17:51:36
[2025-02-22 09:04] LABS: Prostate Specific Antigen < 0.10 ng/mL (<0.05-4.0)
== END 2025-02-22 07:45 | disposition home or self-care (01) ==
LOC: HO.LAB 07:44
PROVIDERS: PCP Internal Medicine; Visit Provider Urology
DX: C61 Malignant neoplasm of prostate (principal); Z12.5 Encounter for screening for malignant neoplasm of prostate
CPT/HCPCS: 36415; 84153; 84403

== ENCOUNTER 2025-03-16 11:20 | Outpatient (AMB) | payer OTHER, SELFPAY ==
--- NOTE | 2025-03-16 11:30 | A.OFFVIS_ITS ---
Intake Visit Reasons: 6m/PSA/Testo Intake Note: Patient is present for 6 month follow up Labs done : 02/22/25 PSA :<0.10. Total Testosterone 258 Urology Medication:Terazosin, Tamsulosin Antibiotic Allergy:NONE Blood Thinner:ASPIRIN English Horn Player Required: Yes English Horn Player Services: English Horn Player Offered & Declined English Horn Player Name: Accompanied by: Spouse Allergies No Known Allergies Allergy (Verified 03/16/25 11:31) HPI Comments Details: Kd is a pleasant male. He is a patient Dr. Raza. He is seen for following urologic conditions - prostate cancer - lower urinary tract symptoms speaks Kinyarwanda, he speaks Turkish Completed external beam radiation April 2023 Continue interval surveillance every 6 months for 5 years Improving testosterone PSA 08/25 <0.1, 12/25 <0.1, 04/26 PSA <0.1 T 165, 09/25 <0.1 T 250, 02/25 <0.1 258 12/25 Has had some urgency and frequency with hot flashes Medications include terazosin, finasteride and gabapentin Stop finasteride, improved hot flashes Prostate Cancer: 08/24 High volume Grade Group 3 - GnRH 11/23 - [facility] with EXBRT plus GnRH Apr 2023 [facility] Dr. Kennedy - 12 months GnRH Diagnosed by Dr. Lynn, PSA 8.8 free PSA 5% Biopsy pT1c Ramsey score: 4+3=7 (left apex medial, right base medial), 3+4=7 (left mid medial, right base lateral and medial, right mid lateral and medial, right apex medial), 3+3= 6 (left base lateral, left mid lateral, left apex lateral, right apex lateral) Number cores positive: 12 Total number of cores: 12 % of tissue involved: 30% of all tissue examined Periprostatic fat inv.: Not identified Seminal vesicle inv.: Not identified Perineural inv.: Present, multifocal LVI: Not identified Staging - 10/24 PET-CT no giovanny disease - 12/24 prostate MRI anterior 1.2 cm lesion, 30 g prostate, no evidence of extracapsular extension Lower urinary tract symptoms with elevated PSA Prior evaluation in [place] Did not continue evaluation secondary to COVID Referred for elevated PSA 02/22 15 Nocturia x3 No prior prostate medications DANA 2+ firm Suggest bladder ultrasound, finasteride, terazosin 5 mg and follow-up cystoscopy PFSH Medical History Vitamin D deficiency DMII (diabetes mellitus, type 2) Lipoma of left upper extremity Osteoarthritis of both hands Asthma-COPD overlap syndrome Personal history of colonic polyps Pre-op chest exam Left knee pain Annual physical exam Obese Pulmonary nodules Hiatal hernia Obesity (BMI 30-39.9) Benign essential hypertension Pure hypercholesterolemia Diabetes mellitus Coronary artery disease LUIS (obstructive sleep apnea) Chronic cough Degenerative disc disease Lung fibrosis Bronchial asthma Surgical History (Updated 02/20/25 @ 10:11 by GEOVANI Mendoza) Hx of surgical procedure (02/07/25) History of ankle surgery Hx of prostate biopsy History of esophagogastroduodenoscopy (EGD) Hx of colonoscopy S/P arterial stent Social History Housing: Apartment Are you a primary home health care coordinator to a significant other at home: No Do you presently have visiting nurse or other home services: No Alcohol intake: current Alcohol intake frequency: holidays/special occasions only Comment: Counts correct Patient Tobacco Use Status: Never used Tobacco e-Cigarette/Vaping Use: Never Used Second Hand Smoke Exposure: No Substance Use Type: Marijuana service: No Current occupational status: disabled Cognitive needs: No Hearing needs: No Vision needs: Yes Review of Systems Const Denies chills and Denies fever(s) Card Reports no additional complaints and Denies syncope Resp Denies cough GI Denies abdominal pain and Denies heartburn Reports as per HPI and Denies change in libido Neuro Denies syncope Psych Denies change in libido Endo Denies change in libido Physical Exam Const General: cooperative, healthy appearing, comfortable and no acute distress Orientation/consciousness: patient oriented x3 HEENT Face and sinus: Yes normal facial exam Mouth: moist mucous membranes Neck Neck: Yes normal visual inspection, Yes full ROM and Yes trachea midline Chest Chest palpation & inspection: normal inspection of the chest Resp Effort & Inspection: normal respiratory effort, able to speak in complete sentences and no respiratory distress GI Inspection: Yes normal to inspection Back/Spine/Pelvis Cervical Spine: normal cervical lordosis Thoracic/Lumbar Spine: thoracic and lumbar spine normal to inspection Skin General skin exam: no rashes or lesions noted Neuro General: patient oriented x3, gait normal, tone normal and moves all extremities Extrem General: Yes normal to inspection and Yes capillary refill normal Assessment & Plan Assessment & Plan (1) Prostate cancer: Comment: 08/24 high volume grade group 3 Code(s): C61 - Malignant neoplasm of prostate Category: Medical Plan Six-month follow-up lab work Orders: Orders Testosterone, Total 5 Months C61 - Malignant neoplasm of prostate Prostate Specific Antigen 5 Months C61 - Malignant neoplasm of prostate Patient Instructions: This note is constructed using voice recognition software. While every effort has been made to ensure accuracy sole leather cutting machine operator errors may have been included. Imaging studies, laboratory and physical exam results were discussed and reviewed in detail. No major barriers to patient understanding were identified. An opportunity to ask questions regarding the treatment plan was provided. All questions were answered. The patient expressed understanding and agreement with the above treatment plan. The patient is aware they should contact our office by phone for worsening of their current condition or the appearance of new urologic symptoms. Compliance is encouraged with any medications and followup testing that is ordered. It is a privilege to participate in the urologic care of your patient. If you have any questions or concerns regarding treatment for the above conditions, or other urologic issues, please do not hesitate to contact me. The office telephone contact is [phone]. Sincerely, Dr Inocencio Lynn MD, [facility] - Urology Compassionate Specialist Care for the Genitourinary System Coding Level of Care Code Est Pt Level 3 (63367) Complex EM visit Add On G2211 Diagnoses Prostate cancer C61
--- OUTSIDE RECORDS SUMMARY | 2025-03-16 14:29 | XMS_ITS | Data Portability ---
Author Organization [employer] [facility], [facility] Address [address] [place] [address] Care Team Providers Care Septic Tank Service Technician Name Role Phone HIM CCA OTHER SO SIMS Primary Care Provider [phone] Assessment Encounter Date Assessment Date Assessment LastModified by Organization Details LastModified Time 07/01/2024 07/01/2024 I provided real -time medical direction via phone for this encounter and was available for additional phone-based assistance as needed. I have reviewed and agree with the Assessment and Plan as documented by the Vice President Of News. Patient given the opportunity to ask questions. [...] has had no fever or chills. Per exploration driller on the scene, vital signs stable patient [...] 5 96 % 96 % 14 /min [id number]. 8 g 98.9 [degF] 91 /min 177.8 cm 136/81 mm[Hg] Not Available [employer] - production 5 20:44:55 Date Recorded Respiratory rate Heart rate Body temperature Oxygen saturation Oxygen saturation in Arterial blood by Pulse oximetry Systolic And Diastolic Provider Name and Address Organization Details Last Updated DateTime 5 16 /min 88 /min 98 [degF] 95 % 95 % 154/82 mm[Hg] Not Available [employer] - production 5 17:42:57 Social History None recorded. Functional Status None recorded. Mental Status None recorded. Family History Nothing Reported. Medical History No medical history recorded. Past Encounters Encounter ID Performer Location Encounter Start Date Encounter Closed Date Diagnosis/Indication Diagnosis SNOMED-CT Code Diagnosis ICD10 Code Diagnosis IMO Codes Diagnosis Note [id number] Viola Martinez MD Main - [facility] [address] [place] [id number] 07/01/2024 20:34:27 07/02/2024 19:21:24 Wound of skin [id number] T14.8XXA [id number] Bianca Nixon MD Main - [facility] [address] [place] [address] 08/10/2024 17:42:53 08/10/2024 19:31:10 Tooth disorder [id number] K08.9 [id number] 59 year old male with poor dentition, [...] assessment and plan as documented by the exploration driller. I provided real-time medical direction for this [...] Nelson Member ID Guarantor Name 08/10/2024 1 [facility] - DOS ON OR AFTER 2022 - DUAL ELIGIBLE - HALF-WAY OPTIONS AND ONE CARE (MEDICARE REPLACEMENT/ADV ANTAGE - HMO) Kd Rajan [id number] Kd Rajan Notes Date Note Type Note [...] ..................... ..................... ..................... ..................... ..................... ..................... ............... Vice President Of News Note From Daniel Millan: [facility] makes pt contact a 59 yo M W/ CC of blisters around a surgery site after removal of a cast. [facility] obtains consent and uploads electronically. [facility] obtains vital signs and pictures of area of question, pictures sent to [facility] via [employer] karely. PT explains that pt Fx tibia and ankle shifted position while in [place]. When pt returned to [place] and was reevaluated surgery was performed to [...] walking to help support the injured area. [facility] contacts [facility] and explains above mentioned. [facility] recommends pt heavily moisturize the dry skin to prevent further blisters, PT is advised to reduce any type of trauma to the leg such as the boot or socks. [facility] advises blisters will pop on their own but Dr will reach out to wound care to try and get them out there to manage the wounds for the time being. PT is advised to look out for infection such as cellulitis, redness, or any signs of fever. PT and understand. [facility] clears. ..................... ..................... ..................... ..................... ..................... ..................... ............... [facility] Consulted: Viola Martinez ..................... ..................... ..................... ..................... ..................... ..................... ............... Disposition: Fulfilled Viola Martinez MD [address] [facility],[address], [place], [address], [place] FAYE - KIP GILBERT 07/02/2024 08:02:17 [...] ..................... ..................... ..................... ..................... ..................... ..................... ............... Vice President Of News Note From Isaac Oropeza: Encountered patient conscious [...] tooth dislodge from the gum. [facility] contacted: states patient would most benefit from [...] ..................... ..................... ..................... ..................... ............... [facility] Consulted: Bianca Nixon ..................... ..................... ..................... ..................... ..................... ..................... ............... Disposition: Fulfilled Bianca Nixon MD [address] [place] [address],[address], [place], [address], KIP MARCUS 08/10/2024 17:51:36
== END 2025-03-16 12:13 | disposition home or self-care (01) ==
LOC: HO.HUSH 11:21
PROVIDERS: Visit Provider Urology
DX: C61 Malignant neoplasm of prostate (principal)
CPT/HCPCS: 99213; G2211

== ENCOUNTER → 2025-03-16 11:20 | Outpatient (BNVA) | payer OTHER, SELFPAY | PROVIDERS: Visit Provider Urology | DX: C61 Malignant neoplasm of prostate (principal) | CPT/HCPCS: 99212 ==